=== PATIENT | female | born 1955 | race Caucasian/White ===

== ENCOUNTER 2021-12-09 13:55 | Outpatient (REF) | payer MEDICARE, MEDICAID, SELFPAY ==
[2021-12-09 14:52] LABS: Appearance Urine CLOUDY; Color Urine YELLOW; Glucose Urine UA NEG (NEG); Leukocyte Esterase Urine 1+ (NEG); Nitrite Urine NEG (NEG); PH 7.5 (5.0-8.0); Specific Gravity - Urine 1.015 (1.005-1.025); UACC Culture Trigger YES; Urine Blood 1+ (NEG); Urine Ketones NEG (NEG); Urine Protein TRACE MG/DL (NEG-TRACE)
[2021-12-09 15:02] LABS: Bacteria Urine 1+ /LPF; Mucus Urine 1+ /LPF; RBC Urine 0-2 /HPF (0); Squamous Epithelial Cell Urine 1+ /LPF; WBC Urine 0-2 /HPF (0-4)
[2021-12-09 15:25] LABS: Anion Gap 11 (12-20); Blood Urea Nitrogen 12 mg/dL (9-16); Carbon Dioxide 25 mmol/L (22-29); Chloride 110 mmol/L (96-108); Estimated Glomerular Filt Rate > 60; Glucose Random 75 mg/dL (60-115); Potassium 3.9 mmol/L (3.3-5.1); Sodium 142 mmol/L (135-145)
[2021-12-09 15:52] LABS: TSH reflex Free T4 0.99 uIU/mL (0.32-4.0)
[2021-12-15 09:21] LABS: Levetiracetam Keppra 22.3 mcg/mL (12.0-46.0)
== END 2021-12-09 13:56 | disposition home or self-care (01) ==
LOC: HO.LAB 13:55
PROVIDERS: PCP Internal Medicine; Visit Provider Nurse Practitioner Family
DX: N39.0 Urinary tract infection, site not specified (principal); E03.9 Hypothyroidism, unspecified; R56.9 Unspecified convulsions; I10 Essential (primary) hypertension; Z51.81 Encounter for therapeutic drug level monitoring; Z79.899 Other long term (current) drug therapy
CPT/HCPCS: 36415; 80048; 80177; 81001; 84443; 87086

== ENCOUNTER 2022-01-06 14:27 | Inpatient (IN) | payer MEDICARE, MEDICAID, SELFPAY ==
[2022-01-06] VITALS (9 sets, daily range): BP systolic 99–132; BP diastolic 60–68; PULSE 67–97; RESP 14–18; TEMP 36.7–36.9; O2SAT 96–100; BMI 21.3
--- NOTE | ~2022-01-06 | CT_ITS ---
EXAMINATION: CT ABDOMEN AND PELVIS WITHOUT CONTRAST CLINICAL INFORMATION: Diffuse abdominal pain, weight loss COMPARISON: 05/15/2019 TECHNIQUE: Multidetector volumetric imaging was performed from the superior aspect of the liver through the pubic symphysis. Sagittal and coronal reformatted images were obtained on the technologist's workstation. This CT examination was performed using dose optimization techniques as appropriate, variously including the following: *Automated exposure control *Adjustment of mA and/or kV according to patient size (this includes techniques or standardized protocols for targeted exams where dose is matched to indication/reason for exam; i.e. extremities or head) *Use of iterative reconstruction technique DLP: 311 mGy-cm FINDINGS: LUNG BASES: The visualized lung bases are unremarkable. LIVER, GALLBLADDER, AND BILIARY TREE: The liver is normal in size, shape, and attenuation. No focal hepatic lesion or biliary ductal dilatation is present. Small amount of pneumobilia is noted presumed iatrogenic. Clips consistent with cholecystectomy. PANCREAS: Unremarkable. SPLEEN: Unremarkable. ADRENAL GLANDS: Unremarkable. KIDNEYS AND URETERS: The kidneys are normal in size, shape, and attenuation. No hydronephrosis, hydroureter, or calculi seen. No perinephric stranding. Incidental small hyperdense cyst right kidney measuring subcentimeter in size. BLADDER: Degroot catheter noted. Bladder is partially decompressed. Bladder wall appears notably thickened anteriorly and superiorly. Limited detail due to the lack of contrast. GASTROINTESTINAL TRACT: Postsurgical changes again noted. Matted bowel loops in the pelvis without evidence for obstruction. Limited detail. Left-sided ostomy noted. ABDOMINAL WALL: There is prominence of the right rectus abdominis muscle with a high density focus consistent with a rectus sheath hematoma. It measures up to 7 cm in maximum diameter. LYMPH NODES: Generalized subcentimeter lymph nodes similar to baseline. No pathologic enlargement. VASCULAR: Retroaortic left renal vein. PELVIC VISCERA: Air within the vaginal canal presumed iatrogenic. OSSEOUS STRUCTURES: Unremarkable. CT/CT abdomen pelvis wo con IMPRESSION: 1. Limited assessment of the GI tract. Postsurgical changes with matted bowel loops in the pelvis without evidence for obstruction. 2. The bladder wall is notably thickened. In light of patient's history, urologic assessment is recommended. 3. Right-sided rectus sheath hematoma. Fleischner guidelines were followed.
[2022-01-06 16:09] LABS: MANUAL DIFF FLAG NO
[2022-01-06 16:10] LABS: Basophils Percent Auto 0.5 % (0-2); Eosinophils Absolute Auto 0.1 X10*3/uL (0.0-0.4); Eosinophils Percent Auto 2.4 % (0-4); Hematocrit 35.7 % (37.0-47.0); Hemoglobin 11.3 g/dl (12.0-16.0); Imm Gran Abs Auto 0.01 X10*3/uL (0.00-0.03); Imm Gran Pct Auto 0.2 % (0.0-0.4); Lymphocytes Absolute Auto 1.8 X10*3/uL (1.2-4.9); Lymphocytes Percent Auto 32.6 % (20-40); Mean Corpuscular HGB Conc 31.7 g/dl (31.0-35.0); Mean Corpuscular Hemoglobin 29.6 pg (27.0-33.0); Mean Corpuscular Volume 93.5 fL (80.0-98.0); Monocytes Absolute Auto 0.4 X10*3/uL (0.1-1.2); Monocytes Percent Auto 7.3 % (2-11); Neutrophils Absolute Auto 3.1 x10*3/uL (2.0-8.3); Platelet Count 342 X10*3/uL (160-400); Red Blood Count 3.82 X10*6/uL (4.20-5.50); Red Cell Distribution Width 12.9 % (11.0-16.0); White Blood Count 5.5 X10*3/uL (4.8-10.8)
[2022-01-06 16:27] LABS: COVID-19 Test Negative (Negative)
[2022-01-06 16:28] LABS: Alanine Aminotransferase 20 U/L (0-31); Albumin Level 4.3 g/dL (3.5-5.0); Alkaline Phosphatase 72 U/L (39-117); Anion Gap 13 (12-20); Aspartate Amino Transferase 19 U/L (5-31); Bilirubin Total 0.7 mg/dL (0.0-1.0); Blood Urea Nitrogen 13 mg/dL (9-16); Calcium 9.9 mg/dL (8.4-10.2); Carbon Dioxide 30 mmol/L (22-29); Chloride 101 mmol/L (96-108); Creatinine Clr Calc Pharmacy 58.7; Estimated Glomerular Filt Rate > 60; Glucose Random 193 mg/dL (60-115); Potassium 4.6 mmol/L (3.3-5.1); Sodium 139 mmol/L (135-145); Total Protein 7.1 g/dL (6.5-8.0)
--- NOTE | 2022-01-06 18:58 | ED.ABDPAIN ---
HPI - Abdominal Pain General Chief Complaint: Abdominal Pain Stated Complaint: UTI Time Seen by Provider: 01/06/22 18:56 Source: patient Mode of arrival: ambulatory Limitations: no limitations and other (poor historian) History of Present Illness HPI narrative: This 66-year-old female with a complex medical history of colon cancer status post partial colectomy and colostomy, recurrent small-bowel obstruction, opiate dependence, seizure disorder, paroxysymal afib, conversion disorder, history of CVA with left-sided weakness, neurogenic bladder with chronic indwelling Degroto, hypothyroidism, history of PE currently on Lovenox presenting to the emergency department with complaints of abdominal pain and concerns for UTI X 2 weeks. Patient tells me that she has a VNA nurse that goes to her home told her that she likely has a urinary tract infection, she reports burning to area. Patient reports diffuse abdominal pain with radiation to bilateral flanks. She also reports associated nausea, vomiting. She tells me the abdominal pain is severe in nature 10/10 stabbing. He tells me the pain does not radiate. She also reports an associated 30 lb weight loss over the past 4 weeks. Denies chest pain, shortness of breath, headache, dizziness. MD elicited complaint: abdominal pain Pertinent past history: none Onset (ago): week(s) (2) Pain Consistency: constant Location: diffuse Severity: severe Pain scale (0-10): 10 Quality: stabbing Radiation: bilateral flank Exacerbating factors: nothing Relieving factors: nothing Associated symptoms: nausea and chills Related Data Home Medications Medication Instructions Recorded Confirmed aspirin 81 mg tablet,delayed 81 mg PO DAILY 01/28/21 12/23/21 release (Adult Low Dose Aspirin) oxycodone 5 mg tablet 20 mg PO Q6H 12/22/21 12/23/21 pantoprazole 40 mg tablet,delayed 40 mg PO DAILY 12/22/21 01/04/22 release Previous Rx's Medication Instructions Recorded dicyclomine 20 mg tablet 20 mg PO BID #60 tab 08/11/21 digoxin 125 mcg (0.125 mg) tablet 125 mcg PO DAILY #90 tab 08/11/21 diphenoxylate-atropine 2.5 1 tab PO BID PRN #20 tab 08/11/21 mg-0.025 mg tablet (Lomotil) lancets 28 gauge (FreeStyle 28 gauge TOPICAL DAILY #100 ea 08/11/21 Lancets) levetiracetam 750 mg tablet 750 mg PO BID 30 Days #60 tab 08/11/21 blood sugar diagnostic (FreeStyle 1 strip MISCELLANEOUS DAILY #50 cap 09/21/21 Lite Strips) ropinirole 1 mg tablet 1 mg PO DAILY #30 tab 10/04/21 duloxetine 60 mg capsule,delayed 60 mg PO DAILY #30 cap 12/09/21 release albuterol sulfate 90 mcg/actuation 2 puff INHALATION Q6H PRN #18 g 01/02/22 aerosol inhaler acetaminophen 500 mg tablet 500 mg PO .QD #90 tab 01/03/22 budesonide-formoterol HFA 80 2 puff INHALATION BID #10.2 g 01/03/22 mcg-4.5 mcg/actuation aerosol inhaler levothyroxine 50 mcg tablet 50 mcg PO DAILY #30 tab 01/03/22 loratadine 10 mg tablet 10 mg PO DAILY #90 tab 01/03/22 simvastatin 40 mg tablet 40 mg PO QPM #30 tab 01/03/22 Allergies Allergy/AdvReac Type Severity Reaction Status Date / Time divalproex sodium [Depakote] Allergy Unknown altered Verified 01/04/22 17:52 mental status erythromycin base Allergy Unknown ANAPHALAXIS Verified 01/04/22 17:52 [ERYTHROMYCIN BASE] gluten [GLUTEN] Allergy Unknown BLOATING,RA Verified 01/04/22 17:52 SH penicillin V Allergy Unknown anaphylaxis Verified 01/04/22 17:52 Penicillins [PCN] Allergy Unknown ANAPHALAXIS Verified 01/04/22 17:52 SEAFOOD Allergy Unknown ANAPHALAXIS, Verified 01/04/22 17:52 anaphylaxis Sulfa (Sulfonamide Allergy Unknown ANAPHALAXIS, Verified 01/04/22 17:52 Antibiotics) vomiting [SULFA (SULFONAMIDE ANTIBIOTICS)] Erythromycin Allergy Unknown anaphylaxis Uncoded 01/04/22 17:52 gluten,rice Allergy Unknown Unknown Uncoded 01/04/22 17:52 SULFA ABX, PCN, Allergy Unknown anaphylaxis Uncoded 01/04/22 17:52 Review of Systems Review of Systems Constitutional : No Weight loss, No Fever, + Chills, No Fatigue, No Malaise ENT/Mouth : No sore throat, No Rhinorrhea Eyes: No Eye Pain, No Swelling, No Redness Cardiovascular : No Chest Pain, No SOB, No Dyspnea on Exertion, No Orthopnea, No Edema, No Palpitations Respiratory : No Cough, No Sputum, No Wheezing Gastrointestinal : + Nausea, No Vomiting, No Diarrhea, No Constipation, + abdominal Pain, No Hematochezia, No Melena Genitourinary : + Dysuria, No Urinary Frequency, No Hematuria, Musculoskeletal : No joint pain, No Myalgias, No Joint Swelling, + flank pain Skin : No Skin Lesions, No rash Neuro : No Weakness, No Numbness, No Dizziness, No Headache Psych : No Anxiety/Panic, No Depression All other systems reviewed and are negative [facility] Past Medical History Attestation statement: The following information was validated with the patient. Source: old records reviewed and nursing notes reviewed Surgical History History of bladder surgery History of colectomy History of colonoscopy History of colostomy reversal History of facial surgery History of partial gastrectomy History of partial surgical removal of colon History of sinus surgery Family History Family History Other Mental health disorder Social History Social History Housing: Apartment Alcohol intake: never Patient Tobacco Use Status: Never used Tobacco e-Cigarette/Vaping Use: Never Used Second Hand Smoke Exposure: Yes Use of substances other than those prescribed or required for medical reasons: No Advance Directives: No Advance Directives Information Provided: No service: No Current occupational status: disabled Cognitive needs: Yes (cane) Hearing needs: No Vision needs: Yes (Glasses) Physical Exam ED Vital Signs: Vital Signs - 24 hr 01/06/22 15:55 01/06/22 19:09 01/06/22 20:00 Temperature 98.0 F 98.5 F 98.5 F Pulse Rate 97 72 72 Respiratory Rate 18 16 16 Blood Pressure 116/64 132/65 99/68 Pulse Oximetry 100 98 98 01/06/22 20:40 01/06/22 21:34 01/06/22 23:02 Temperature 98.3 F Pulse Rate 71 67 Respiratory Rate 14 16 16 Blood Pressure 120/68 99/62 Pulse Oximetry 99 98 01/06/22 23:04 01/06/22 23:24 01/06/22 23:39 Temperature 98.3 F 98.3 F 98.4 F Pulse Rate 70 70 74 Respiratory Rate 16 16 16 Blood Pressure 108/60 108/60 99/61 Pulse Oximetry 96 97 98 01/07/22 00:00 01/07/22 00:05 01/07/22 01:14 Temperature 98.4 F Pulse Rate 67 69 74 Respiratory Rate 16 16 16 Blood Pressure 98/57 L 98/57 L 102/55 L Pulse Oximetry 98 98 01/07/22 01:52 Temperature 98.6 F Pulse Rate 67 Respiratory Rate 16 Blood Pressure 98/67 Pulse Oximetry 98 BMI result Body Mass Index 21.3 Vital signs stable Appearance: Alert.? Oriented X3.? No acute distress.? Head: Normocephalic, atraumatic, no step-offs or deformities Eyes: Pupils equal, round and reactive to light.? ENT: Pharynx normal.? Neck: Normal inspection.? Neck supple.? CVS: Normal heart rate and rhythm.? Pulses normal.? Respiratory: No respiratory distress.? Breath sounds normal.? Abdomen: Soft and +diffusely tender .? Patient with a colostomy bag in place. And a Degroot catheter in place. Skin: Skin warm and dry.? Normal skin color.? Normal skin turgor.? Extremities: No lower extremity edema.? No calf ttp. 5/5 strength to bilateral upper and lower extremities Back: No midline tenderness, no C-spine tenderness, full range of motion, + CVA tenderness bilaterally Neuro: Oriented X 3.? No motor deficit.? No sensory deficit. CN 2-12 intact Course Reevaluation(s) Reevaluation #1: CBC appears to be at patient's baseline. No acute electrolyte abnormalities requiring intervention. Lipase within normal limits. Urine positive for nitrates will treat for UTI. COVID negative. Pending CT of the abdomen and pelvis. Time: 02:06 Reevaluation #2: Reached at a hospitalist as patient will likely require IV antibiotics as she has anaphylaxis reactions to nearly all antibiotics including Levaquin, penicillins, sulfa as. He recommends to reaching out to Infectious Disease for antibiotic guidance. He also notes this is a high risk patient as she does have anaphylaxis reactions. I discussed CT findings of hematoma w/ Dr. Conway who tells me it is small, and no need for acute intervention at this time. Time: 02:00 Reevaluation #3: Reached out to Dr.Jaworek [place]. Waiting for results. Asked her for input on treating patient for UTI due to her complex anaphylactic history. Sign will be given to Dr. Rachel. Pending ID response. I did tell ID i was leaving and that would be on in the am. Time: 02:39 Additional Reevaluation(s): 331- still no response from ID. Sign out given to . MDM - Abdominal Pain MDM Narrative Medical decision making narrative: 1898 66 yo f w/ complex medical hx presents w/ uti sx and abdominal pain w/ radiation to bilateral flanks. Also reports nausea. PE significant for diffusely tender abdomen with bilateral flank pain. Regular rate and rhythm. Lungs clear. Neuro nonfocal. Vital signs stable. Will rule out UTI, pyelonephritis, I will also obtain a CT of the abdomen and pelvis to rule out any masses or tumors as patient does report that she has lost 30 lb within the past 4 weeks. She denies all other constitutional symptoms Plan- labs, urine, imaging Medical Records Attestation: I reviewed the patient's medical records. Lab Data Attestation: I reviewed the patient's lab results. Result diagrams: 01/06/22 16:03 01/06/22 16:03 Labs: Lab Results 01/06/22 01/06/22 01/06/22 Range/Units 16:03 16:03 16:03 WBC 5.5 (4.8-10.8) X10*3/uL RBC 3.82 L (4.20-5.50) X10*6/uL Hgb 11.3 L (12.0-16.0) g/dl Hct 35.7 L (37.0-47.0) % MCV 93.5 (80.0-98.0) fL MCH 29.6 (27.0-33.0) pg MCHC 31.7 (31.0-35.0) g/dl RDW 12.9 (11.0-16.0) % Plt Count 342 (160-400) X10*3/uL MPV 9.0 L (9.4-12.3) fL Immature Gran % (Auto) 0.2 (0.0-0.4) % Neut % (Auto) 57.0 (45-73) % Lymph % (Auto) 32.6 (20-40) % [place] % (Auto) 7.3 (2-11) % Eos % (Auto) 2.4 (0-4) % Baso % (Auto) 0.5 (0-2) % Lymph # (Auto) 1.8 (1.2-4.9) X10*3/uL [place] # (Auto) 0.4 (0.1-1.2) X10*3/uL Eos # (Auto) 0.1 (0.0-0.4) X10*3/uL Baso # (Auto) 0.0 (0.0-0.2) X10*3/uL Abs Immat Gran (auto) 0.01 (0.00-0.03) X10*3/uL Absolute Neuts (auto) 3.1 (2.0-8.3) x10*3/uL Absolute Nucleated RBC 0.000 (0.0-0.012) X10*3/uL Nucleated RBC % (auto) 0.0 (0.0-0.2) /100WBC Sodium 139 (135-145) mmol/L Potassium 4.6 (3.3-5.1) mmol/L Chloride 101 (96-108) mmol/L Carbon Dioxide 30 H (22-29) mmol/L Anion Gap 13 (12-20) BUN 13 (9-16) mg/dL Creatinine 0.72 (0.5-1.4) mg/dL Estim Creat Clear Calc 58.7 Estimated GFR > 60 Random Glucose 193 H (60-115) mg/dL Calcium 9.9 D (8.4-10.2) mg/dL Total Bilirubin 0.7 (0.0-1.0) mg/dL AST 19 (5-31) U/L ALT 20 (0-31) U/L Alkaline Phosphatase 72 (39-117) U/L Total Protein 7.1 (6.5-8.0) g/dL Albumin 4.3 (3.5-5.0) g/dL Lipase 18 (8-78) U/L Urine Color Urine Appearance Urine pH (5.0-8.0) Ur Specific [place] (1.005-1.025) Urine Protein (NEG-TRACE) MG/DL Urine Glucose (UA) (NEG) MG/DL Urine Ketones (NEG) MG/DL Urine Blood (NEG) Urine Nitrite (NEG) Ur Leukocyte Esterase (NEG) Urine RBC (0) /HPF Urine WBC (0-4) /HPF Ur Squamous Epith Cells /LPF Urine Bacteria /LPF COVID-19 (JEFE) Negative (Negative) COVID-19 Clin Com See Note 01/06/22 Range/Units 19:12 WBC (4.8-10.8) X10*3/uL RBC (4.20-5.50) X10*6/uL Hgb (12.0-16.0) g/dl Hct (37.0-47.0) % MCV (80.0-98.0) fL MCH (27.0-33.0) pg MCHC (31.0-35.0) g/dl RDW (11.0-16.0) % Plt Count (160-400) X10*3/uL MPV (9.4-12.3) fL Immature Gran % (Auto) (0.0-0.4) % Neut % (Auto) (45-73) % Lymph % (Auto) (20-40) % [place] % (Auto) (2-11) % Eos % (Auto) (0-4) % Baso % (Auto) (0-2) % Lymph # (Auto) (1.2-4.9) X10*3/uL [place] # (Auto) (0.1-1.2) X10*3/uL Eos # (Auto) (0.0-0.4) X10*3/uL Baso # (Auto) (0.0-0.2) X10*3/uL Abs Immat Gran (auto) (0.00-0.03) X10*3/uL Absolute Neuts (auto) (2.0-8.3) x10*3/uL Absolute Nucleated RBC (0.0-0.012) X10*3/uL Nucleated RBC % (auto) (0.0-0.2) /100WBC Sodium (135-145) mmol/L Potassium (3.3-5.1) mmol/L Chloride (96-108) mmol/L Carbon Dioxide (22-29) mmol/L Anion Gap (12-20) BUN (9-16) mg/dL Creatinine (0.5-1.4) mg/dL Estim Creat Clear Calc Estimated GFR Random Glucose (60-115) mg/dL Calcium (8.4-10.2) mg/dL Total Bilirubin (0.0-1.0) mg/dL AST (5-31) U/L ALT (0-31) U/L Alkaline Phosphatase (39-117) U/L Total Protein (6.5-8.0) g/dL Albumin (3.5-5.0) g/dL Lipase (8-78) U/L Urine Color YELLOW Urine Appearance CLOUDY Urine pH 6.5 (5.0-8.0) Ur Specific [place] 1.015 (1.005-1.025) Urine Protein TRACE (NEG-TRACE) MG/DL Urine Glucose (UA) NEG (NEG) MG/DL Urine Ketones NEG (NEG) MG/DL Urine Blood NEG (NEG) Urine Nitrite POS H (NEG) Ur Leukocyte Esterase NEG (NEG) Urine RBC 1-4 (0) /HPF Urine WBC 10-14 H (0-4) /HPF Ur Squamous Epith Cells 2+ /LPF Urine Bacteria 3+ /LPF COVID-19 (JEFE) (Negative) COVID-19 Clin Com Critical Care Time Critical Care Time Critical Care Time: Yes Total Critical Care Time: 35 Attestation: I attest to this time spent taking care of the patient, obtaining history, physical, reviewing labs, imaging, speaking to my attending, speaking to specialist. Discharge Plan Discharge Clinical Impression: Urinary tract infection Patient Disposition: Still a Patient Prescriptions: No Action aspirin [Adult Low Dose Aspirin] 81 mg tablet,delayed release (DR/EC) 81 mg PO DAILY 0RF FreeStyle Lite Strips Strip 1 strip miscellaneous DAILY Qty: 50 0RF ropinirole 1 mg tablet 1 mg PO DAILY Qty: 30 3RF albuterol sulfate 90 mcg/actuation HFA aerosol inhaler 2 puff inhalation Q6H PRN (Reason: for muscle spasm) Qty: 18 1RF loratadine 10 mg tablet 10 mg PO DAILY Qty: 90 1RF acetaminophen 500 mg tablet 500 mg PO .QD Qty: 90 0RF levothyroxine 50 mcg tablet 50 mcg PO DAILY Qty: 30 2RF budesonide-formoterol 80-4.5 mcg/actuation HFA aerosol inhaler 2 puff inhalation BID Qty: 10.2 2RF simvastatin 40 mg tablet 40 mg PO QPM Qty: 30 0RF duloxetine 60 mg capsule,delayed release(DR/EC) 60 mg PO DAILY Qty: 30 0RF dicyclomine 20 mg tablet 20 mg PO BID Qty: 60 0RF digoxin 125 mcg (0.125 mg) tablet 125 mcg PO DAILY Qty: 90 0RF Hold Instructions: Doctor's Order diphenoxylate-atropine [Lomotil] 2.5-0.025 mg tablet 1 tab PO BID PRN (Reason: diarrhea) Qty: 20 0RF lancets [FreeStyle Lancets] 28 gauge misc 28 gauge topical DAILY Qty: 100 2RF levetiracetam 750 mg tablet 750 mg PO BID 30 Days Qty: 60 8RF oxycodone 5 mg tablet 20 mg PO Q6H 0RF pantoprazole 40 mg tablet,delayed release (DR/EC) 40 mg PO DAILY 0RF
[2022-01-06 19:23] LABS: Appearance Urine CLOUDY; Color Urine YELLOW; Glucose Urine UA NEG (NEG); Leukocyte Esterase Urine NEG (NEG); Nitrite Urine POS (NEG); PH 6.5 (5.0-8.0); Specific Gravity - Urine 1.015 (1.005-1.025); UACC Culture Trigger YES; Urine Blood NEG (NEG); Urine Ketones NEG (NEG); Urine Protein TRACE MG/DL (NEG-TRACE)
[2022-01-06 19:30] LABS: Lipase 18 U/L (8-78)
[2022-01-06 19:34] LABS: Bacteria Urine 3+ /LPF; Squamous Epithelial Cell Urine 2+ /LPF
[2022-01-06] MEDS: 0.9 % Sodium Chloride 1,000 ML 999 ML IV (21:02)
[2022-01-06] MEDS: ondansetron HCL 4 MG/2 ML VIAL IVPUSH (21:03)
[2022-01-06] MEDS: Morphine Sulfate 2 MG/ML CARTRIDGE IVPUSH (23:02)
[2022-01-07] VITALS (15 sets, daily range): BP systolic 92–109; BP diastolic 53–70; PULSE 58–89; RESP 16–18; TEMP 36.3–37; O2SAT 95–99
[2022-01-07] MEDS: 0.9 % Sodium Chloride 1,000 ML 999 ML IV (01:13)
[2022-01-07] MEDS: Morphine Sulfate 2 MG/ML CARTRIDGE IVPUSH ×2 (02:26→07:48)
--- NOTE | 2022-01-07 03:54 | PC.NURSE ---
colostomy bag emptied for 400cc yellow
--- NOTE | 2022-01-07 04:00 | PC.NURSE ---
gentamicin not available to the ed, housekeeping associate called.
[2022-01-07] MEDS: diphenhydrAMINE HCL 25 MG TABLET 50 MG PO ×2 (04:47→20:55)
--- NOTE | 2022-01-07 06:00 | PC.NURSE ---
medication infusing with no difficutly, no s/s of a reaction.
--- NOTE | 2022-01-07 10:40 | PHA.MEDREC ---
Pharmacy Consult ? Medication Reconciliation Pharmacy has completed the medication reconciliation. SPOKE WITH PT. SHE HAD A LIST. I CROSS REFERENCED IT WITH HER INS FILL HX AND CURRENT LIST IN EXPANSE
--- NOTE | 2022-01-07 10:59 | P.HPHOSP_ITS ---
History of Present Illness Date of Service: 01/07/22 Chief Complaint: fever, suprapubic pain 66F With past medical history of chronic indwelling Degroot catheter due to neurogenic bladder presented with suprapubic pain, fever at home of 101, ongoing for several days. Patient also notes weight loss over last few months, she reports about 40 lb weight loss, however, review of EMR shows patient has lost about 12 lb over the past year, and about 22lbs since 2019. she has a history of colon cancer status post resection complicated by multiple small-bowel obstructions. She reports that she was told she is in remission. She Reports high output in her colostomy. in ED UA was positive for WBC, nitrate, bacteria. Patient has reported anaphylactic allergies to multiple medications. Therefore, she was given gentamicin and premedicated with Benadryl. She seems to have tolerated this well. Review of Systems Review of Systems: Constitutional: Fevers, weight loss Eyes: denies blurry vision ENT: denies sore throat CVS: denies chest pain Respiratory: Denies dyspnea GI: high ostomy output : suprapubic pain MSK: denies neck pain Skin: denies rash Neuro: denies specific motor weakness Psych: denies suicidal ideation Endocrine: denies heat/cold intolerance Hematologic: denies easy bleeding Allergy: denies hives PMFSH Medical History (Updated 01/07/22 @ 10:57 by Hector Pride MD) Colon cancer Conversion disorder COPD (chronic obstructive pulmonary disease) Deep vein thrombosis Paroxysmal A-fib Pseudoseizure Family History (Updated 01/07/22 @ 10:57 by Hector Pride MD) Mother CAD (coronary artery disease) Other Mental health disorder Surgical History (Updated 01/07/22 @ 07:48 by Hector Pride MD) History of bladder surgery History of colectomy History of colonoscopy History of colostomy reversal History of facial surgery History of partial gastrectomy History of partial surgical removal of colon History of sinus surgery S/P IVC filter Social History Housing: Apartment Alcohol intake: never Patient Tobacco Use Status: Never used Tobacco e-Cigarette/Vaping Use: Never Used Second Hand Smoke Exposure: Yes Use of substances other than those prescribed or required for medical reasons: No Advance Directives: No Advance Directives Information Provided: No service: No Current occupational status: disabled Cognitive needs: Yes (cane) Hearing needs: No Vision needs: Yes (Glasses) Meds Allergies Allergy/AdvReac Type Severity Reaction Status Date / Time Tetracyclines Allergy Severe Anaphylaxis Verified 01/07/22 03:40 divalproex sodium [Depakote] Allergy Unknown altered Verified 01/04/22 17:52 mental status erythromycin base Allergy Unknown ANAPHALAXIS Verified 01/04/22 17:52 [ERYTHROMYCIN BASE] gluten [GLUTEN] Allergy Unknown BLOATING,RA Verified 01/04/22 17:52 SH penicillin V Allergy Unknown anaphylaxis Verified 01/04/22 17:52 Penicillins [PCN] Allergy Unknown ANAPHALAXIS Verified 01/04/22 17:52 SEAFOOD Allergy Unknown ANAPHALAXIS, Verified 01/04/22 17:52 anaphylaxis Sulfa (Sulfonamide Allergy Unknown ANAPHALAXIS, Verified 01/04/22 17:52 Antibiotics) vomiting [SULFA (SULFONAMIDE ANTIBIOTICS)] Erythromycin Allergy Unknown anaphylaxis Uncoded 01/04/22 17:52 gluten,rice Allergy Unknown Unknown Uncoded 01/04/22 17:52 SULFA ABX, PCN, Allergy Unknown anaphylaxis Uncoded 01/04/22 17:52 Active Medications: Current Medications Albuterol Sulfate (Albuterol Sulfate 90 Mcg 8 Gm Inhaler) 2 puff INHALE Q6H PRN PRN Reason: for muscle spasm Amitriptyline HCl (Amitriptyline Hcl 25 Mg Tablet) 25 mg PO BEDTIME [facility] Aspirin (Aspirin Enteric Coated 81 Mg Tablet.) 81 mg PO DAILY [facility] Cholestyramine Resin (Cholestyramine (With Sugar) 4 Gm Powd.Pack) 4 gm PO BID [facility] Dicyclomine HCl (Dicyclomine Hcl 10 Mg Capsule) 20 mg PO BID [facility] Digoxin (Digoxin 0.125 Mg Tablet) 0.125 mg PO DAILY [facility] Diphenhydramine HCl (Diphenhydramine Hcl 25 Mg Tablet) 50 mg PO BEDTIME [facility] Duloxetine HCl (Duloxetine Hcl 60 Mg Capsule.) 60 mg PO DAILY [facility] Folic Acid (Folic Acid 1 Mg Tablet) 1 mg PO DAILY [facility] Levothyroxine Sodium (Levothyroxine Sodium 50 Mcg Tablet) 50 mcg PO DAILY [facility] Loperamide HCl (Loperamide Hcl 2 Mg Capsule) 2 mg PO NEEDED PRN PRN Reason: Diarrhea Loratadine (Loratadine 10 Mg Tablet) 10 mg PO DAILY [facility] Magnesium Oxide (Magnesium Oxide 400 Mg Tablet) 400 mg PO BID [facility] Multivitamins/Vitamin C (Multivitamin Tablet) 1 tab PO DAILY [facility] Non-Formulary Medication (Budesonide-Formoterol) 2 puff INHALE BID [facility] Non-Formulary Medication (Levetiracetam) 750 mg PO BID [facility] Non-Formulary Medication (Oxybutynin Chloride) 1 tab PO BID [facility] Non-Formulary Medication (Pantoprazole) 40 mg PO DAILY [facility] Non-Formulary Medication (Simvastatin) 40 mg PO BEDTIME [facility] Pharmacy Consult (Consult Rx Perform Med Rec) 1 each MISCELLANE ONCE PRN PRN Reason: Consult order Potassium Chloride (Potassium Chloride Er 10 Meq Capsule.Er) 10 meq PO BID [facility] Ropinirole HCl (Ropinirole Hcl 1 Mg Tablet) 1 mg PO DAILY [facility] Thiamine HCl (Thiamine Hcl 100 Mg Tablet) 100 mg PO DAILY [facility] Trazodone HCl (Trazodone Hcl 50 Mg Tablet) 50 mg PO BEDTIME [facility] Home Medications Medication Instructions Recorded Confirmed Last Taken Type aspirin 81 mg tablet,delayed 81 mg PO DAILY 01/28/21 01/07/22 01/06/22 History release (Adult Low Dose Aspirin) pantoprazole 40 mg tablet,delayed 40 mg PO DAILY 12/22/21 01/07/22 01/06/22 History release amitriptyline 25 mg tablet 1 tab PO BEDTIME 01/07/22 01/07/22 01/06/22 History cholestyramine (with sugar) 4 gram 1 packet PO BID 01/07/22 01/07/22 01/06/22 History powder for susp in a packet diphenhydramine HCl 25 mg tablet 50 mg PO BEDTIME 01/07/22 01/07/22 01/06/22 History (Banophen) folic acid 1 mg tablet 1 tab PO DAILY 01/07/22 01/07/22 01/06/22 History loperamide 2 mg capsule 2 mg PO NEEDED PRN 01/07/22 01/07/22 01/06/22 History magnesium oxide 400 mg (241.3 mg 1 tab PO BID 01/07/22 01/07/22 01/06/22 History magnesium) tablet multivitamin-ferrous 1 tab PO DAILY 01/07/22 01/07/22 01/06/22 History fumarate-folic acid 18 mg-400 mcg tablet (Certavite-Antioxidant) ondansetron HCl 4 mg tablet 1 tab PO Q8H PRN 01/07/22 01/07/22 01/06/22 History oxybutynin chloride 5 mg tablet 1 tab PO BID 01/07/22 01/07/22 01/06/22 History potassium chloride 10 mEq 1 tab PO BID 01/07/22 01/07/22 01/06/22 History tablet,extended release(part/cryst) simvastatin 40 mg tablet 40 mg PO BEDTIME 01/07/22 01/07/22 01/06/22 History thiamine HCl (vitamin B1) 100 mg 1 tab PO DAILY 01/07/22 01/07/22 01/06/22 History tablet (Vitamin B-1) trazodone 50 mg tablet 1 tab PO BEDTIME 01/07/22 01/07/22 01/06/22 History Physical Exam Vital Signs and Narrative: Vital Signs: Last Vital Signs Temp 98.4 F 01/07/22 06:00 Pulse 89 01/07/22 10:07 Resp 18 01/07/22 10:07 BP 92/53 L 01/07/22 10:07 Pulse Ox 99 01/07/22 10:07 BMI result Body Mass Index 21.3 General: no acute distress HEENT: atraumatic Neck: normal to visual inspection CVS: S1, S2, RRR Resp: CTA bilateral Chest: non tender GI: soft, non tender, non distended : no CVA tenderness Skin: no rashes Extremities: no edema Neuro: Oriented X3, grossly intact Psych: cooperative Results Labs CBC and Chem 7: 01/06/22 16:03 01/06/22 16:03 Labs: Laboratory Results - last 24 hr 01/06/22 01/06/22 01/06/22 16:03 16:03 16:03 MCV 93.5 MCH 29.6 MCHC 31.7 RDW 12.9 Plt Count 342 MPV 9.0 L Immature Gran % (Auto) 0.2 Neut % (Auto) 57.0 Lymph % (Auto) 32.6 Morris % (Auto) 7.3 Eos % (Auto) 2.4 Baso % (Auto) 0.5 Lymph # (Auto) 1.8 Morris # (Auto) 0.4 Eos # (Auto) 0.1 Baso # (Auto) 0.0 Abs Immat Gran (auto) 0.01 Absolute Neuts (auto) 3.1 Absolute Nucleated RBC 0.000 Nucleated RBC % (auto) 0.0 Anion Gap 13 Estim Creat Clear Calc 58.7 Estimated GFR > 60 Random Glucose 193 H Calcium 9.9 D Total Bilirubin 0.7 AST 19 ALT 20 Alkaline Phosphatase 72 Total Protein 7.1 Albumin 4.3 Lipase 18 Urine Color Urine Appearance Urine pH Ur Specific [place] Urine Protein Urine Glucose (UA) Urine Ketones Urine Blood Urine Nitrite Ur Leukocyte Esterase Urine RBC Urine WBC Ur Squamous Epith Cells Urine Bacteria COVID-19 (JEFE) Negative COVID-19 Clin Com See Note 01/06/22 19:12 MCV MCH MCHC RDW Plt Count MPV Immature Gran % (Auto) Neut % (Auto) Lymph % (Auto) Morris % (Auto) Eos % (Auto) Baso % (Auto) Lymph # (Auto) Morris # (Auto) Eos # (Auto) Baso # (Auto) Abs Immat Gran (auto) Absolute Neuts (auto) Absolute Nucleated RBC Nucleated RBC % (auto) Anion Gap Estim Creat Clear Calc Estimated GFR Random Glucose Calcium Total Bilirubin AST ALT Alkaline Phosphatase Total Protein Albumin Lipase Urine Color YELLOW Urine Appearance CLOUDY Urine pH 6.5 Ur Specific [place] 1.015 Urine Protein TRACE Urine Glucose (UA) NEG Urine Ketones NEG Urine Blood NEG Urine Nitrite POS H Ur Leukocyte Esterase NEG Urine RBC 1-4 Urine WBC 10-14 H Ur Squamous Epith Cells 2+ Urine Bacteria 3+ COVID-19 (JEFE) COVID-19 Clin Com Imaging Radiologist's Impressions: Impressions Abdomen/Pelvis CT 01/06/22 19:33 IMPRESSION: 1. Limited assessment of the GI tract. Postsurgical changes with matted bowel loops in the pelvis without evidence for obstruction. 2. The bladder wall is notably thickened. In light of patient's history, urologic assessment is recommended. 3. Right-sided rectus sheath hematoma. Fleischner guidelines were followed. Assessment and Plan (1) COPD (chronic obstructive pulmonary disease): Status: Acute Plan 66-year-old female presented with suprapubic pain, and weight loss catheter associated urinary tract infection no sepsis reported multiple anaphylactic antibiotic allergies follow-up ID for further recommendations follow-up cultures reported weight loss, moderate protein calorie malnutrition concern for recurrence of malignancy versus short bowel syndrome outpatient follow-up recommended monitor output and electrolytes low gluten, low-fiber diet, Ensure t.i.d. history of DVT/PE status post IVC filter therapeutic Lovenox paroxysmal atrial fibrillation therapeutic Lovenox, digoxin hypothyroid synthroid copd continue inhalers hld statin full code patient with CAUTI and history of severe reactions to multiple antibiotics, therefore plan to treat inpaitent under close observation and expected to require atleast 2 midnights in hospital Quality Stroke Does the patient have a stroke diagnosis?: No VTE Prior VTE?: Yes VTE Risk Level:: Medical - moderate - high VTE Device Contraindication: Treatment Not Indicated VTE Drug Contraindication: N/A - Med Ordered
[2022-01-07] MEDS: Enoxaparin Sodium 60 MG/0.6 ML SYRINGE 50 MG SUBCUT ×2 (13:20→23:53)
[2022-01-07] MEDS: levETIRAcetam 250 MG TABLET 750 MG PO (20:54)
[2022-01-07] MEDS: Dicyclomine HCl 10 MG CAPSULE 20 MG PO (20:54)
[2022-01-07] MEDS: Magnesium Oxide 400 MG TABLET PO (20:55)
[2022-01-07] MEDS: Amitriptyline HCl 25 MG TABLET PO (20:55)
[2022-01-07] MEDS: Atorvastatin Calcium 20 MG TABLET PO (20:55)
[2022-01-07] MEDS: 0.9 % Sodium Chloride Flush 3 ML SYRINGE IVFLUSH (20:55)
[2022-01-07] MEDS: traZODone HCL 50 MG TABLET PO (20:55)
[2022-01-08] VITALS (7 sets, daily range): BP systolic 90–106; BP diastolic 51–68; PULSE 57–79; RESP 17–18; TEMP 36.1–36.8; O2SAT 95–98
[2022-01-08 05:34] LABS: Hematocrit 35.3 % (37.0-47.0); Hemoglobin 11.3 g/dl (12.0-16.0); Mean Corpuscular Hemoglobin 30.1 pg (27.0-33.0); Mean Corpuscular Volume 93.9 fL (80.0-98.0); Mean Platelet Volume 9.6 fL (9.4-12.3); Platelet Count 327 X10*3/uL (160-400); Red Blood Count 3.76 X10*6/uL (4.20-5.50); White Blood Count 3.8 X10*3/uL (4.8-10.8)
[2022-01-08] MEDS: Levothyroxine Sodium 50 MCG TABLET PO (05:50)
[2022-01-08] MEDS: Omeprazole 20 MG CAPSULE.DR PO (05:50)
[2022-01-08 06:28] LABS: Anion Gap 14 (12-20); Blood Urea Nitrogen 12 mg/dL (9-16); Calcium 9.4 mg/dL (8.4-10.2); Carbon Dioxide 22 mmol/L (22-29); Chloride 107 mmol/L (96-108); Creatinine Clr Calc Pharmacy 70.5; Estimated Glomerular Filt Rate > 60; Glucose Fasting 83 mg/dL (60-99); Potassium 4.4 mmol/L (3.3-5.1); Sodium 139 mmol/L (135-145)
[2022-01-08] MEDS: levETIRAcetam 250 MG TABLET 750 MG PO ×2 (09:11→19:45)
[2022-01-08] MEDS: 0.9 % Sodium Chloride Flush 3 ML SYRINGE IVFLUSH ×2 (09:11→19:45)
[2022-01-08] MEDS: Dicyclomine HCl 10 MG CAPSULE 20 MG PO ×2 (09:12→19:45)
[2022-01-08] MEDS: Digoxin 0.125 MG TABLET PO (09:13)
[2022-01-08] MEDS: Multivitamin TABLET 1 TAB PO (09:13)
[2022-01-08] MEDS: Loratadine 10 MG TABLET PO (09:13)
[2022-01-08] MEDS: Folic Acid 1 MG TABLET PO (09:13)
[2022-01-08] MEDS: Thiamine HCL 100 MG TABLET PO (09:13)
[2022-01-08] MEDS: Magnesium Oxide 400 MG TABLET PO ×2 (09:14→19:45)
[2022-01-08] MEDS: Aspirin Enteric Coated 81 MG TABLET.DR PO (09:14)
[2022-01-08] MEDS: DULoxetine HCl 60 MG CAPSULE.DR PO (09:14)
--- NOTE | 2022-01-08 09:54 | HO.PM.IMPN ---
Subjective Subjective Date of Service: 01/08/22 Interval History: cc: suprapubic pain interval history: improved Cardiovascular Cardiovascular: Reports no additional cardiovascular complaints Respiratory Respiratory: Reports no additional respiratory complaints Physical Exam Vital Signs: Vital Signs: Last Vital Signs Temp 98.1 F 01/08/22 07:45 Pulse 65 01/08/22 07:45 Resp 18 01/08/22 07:45 BP 103/63 01/08/22 07:45 Pulse Ox 96 01/08/22 07:45 BMI result Body Mass Index 21.3 General: AO X 3, no acute distress Resp: CTA bilateral, no accessory muscles used CVS: S1,S2,RRR GI: soft, non tender, non distended Neuro: motor grossly intact, alert Psych: appropriate affect, appropriate insight Objective Data Active Medications Acetaminophen (Acetaminophen 325 Mg Tablet) 650 mg PO Q6H PRN PRN Reason: Pain, Mild (Pain Scale 1-3) Albuterol Sulfate (Albuterol Sulfate 90 Mcg 8 Gm Inhaler) 2 puff INHALE Q6H PRN PRN Reason: for muscle spasm Amitriptyline HCl (Amitriptyline Hcl 25 Mg Tablet) 25 mg PO BEDTIME [facility] Last Admin: 01/07/22 20:55 Dose: 25 mg Documented by: RAMU Aspirin (Aspirin Enteric Coated 81 Mg Tablet.Dr) 81 mg PO DAILY [facility] Last Admin: 01/08/22 09:14 Dose: 81 mg Documented by: ZAINAB Atorvastatin Calcium (Atorvastatin Calcium 20 Mg Tablet) 20 mg PO BEDTIME [facility] Last Admin: 01/07/22 20:55 Dose: 20 mg Documented by: RAMU Cholestyramine Resin (Cholestyramine (With Sugar) 4 Gm Powd.Pack) 4 gm PO BID [facility] Last Admin: 01/08/22 09:14 Dose: Not Given Documented by: ZAINAB Non-Admin Reason: Patient Refused Dicyclomine HCl (Dicyclomine Hcl 10 Mg Capsule) 20 mg PO BID [facility] Last Admin: 01/08/22 09:12 Dose: 20 mg Documented by: ZAINAB Digoxin (Digoxin 0.125 Mg Tablet) 0.125 mg PO DAILY [facility] Last Admin: 01/08/22 09:13 Dose: 0.125 mg Documented by: ZAINAB Diphenhydramine HCl (Diphenhydramine Hcl 25 Mg Tablet) 50 mg PO BEDTIME [facility] Last Admin: 01/07/22 20:55 Dose: 50 mg Documented by: RAMU Duloxetine HCl (Duloxetine Hcl 60 Mg Capsule.) 60 mg PO DAILY [facility] Last Admin: 01/08/22 09:14 Dose: 60 mg Documented by: ZAINAB Enoxaparin Sodium (Enoxaparin Sodium 60 Mg/0.6 Ml Syringe) 50 mg SUBCUT Q12H [facility] Last Admin: 01/07/22 23:53 Dose: 50 mg Documented by: RAMU Fluticasone/Vilanterol (Fluticasone/Vilanterol 100/25 Blst.W.Dev) 1 puff INHALE RDAILY [facility] Last Admin: 01/08/22 08:01 Dose: Not Given Documented by: MISAEL Non-Admin Reason: Patient Asleep Folic Acid (Folic Acid 1 Mg Tablet) 1 mg PO DAILY [facility] Last Admin: 01/08/22 09:13 Dose: 1 mg Documented by: ZAINAB Ibuprofen (Ibuprofen 400 Mg Tablet) 400 mg PO Q6H PRN PRN Reason: moderate pain Levetiracetam (Levetiracetam 250 Mg Tablet) 750 mg PO BID [facility] Last Admin: 01/08/22 09:11 Dose: 750 mg Documented by: ZAINAB Levothyroxine Sodium (Levothyroxine Sodium 50 Mcg Tablet) 50 mcg PO DAILY@0600 [facility] Last Admin: 01/08/22 05:50 Dose: 50 mcg Documented by: RAMU Loperamide HCl (Loperamide Hcl 2 Mg Capsule) 2 mg PO 8XD PRN PRN Reason: Loose Stool Loratadine (Loratadine 10 Mg Tablet) 10 mg PO DAILY [facility] Last Admin: 01/08/22 09:13 Dose: 10 mg Documented by: ZAINAB Magnesium Oxide (Magnesium Oxide 400 Mg Tablet) 400 mg PO BID [facility] Last Admin: 01/08/22 09:14 Dose: 400 mg Documented by: ZAINAB Multivitamins/Vitamin C (Multivitamin Tablet) 1 tab PO DAILY [facility] Last Admin: 01/08/22 09:13 Dose: 1 tab Documented by: ZAINAB Omeprazole (Omeprazole 20 Mg Capsule.) 20 mg PO DAILY@0630 [facility] Last Admin: 01/08/22 05:50 Dose: 20 mg Documented by: RAMU Oxybutynin Chloride (Oxybutynin Chloride Er 5 Mg Tab.Er.24) 10 mg PO DAILY [facility] Last Admin: 01/08/22 09:11 Dose: 10 mg Documented by: ZAINAB Pharmacy Consult (Consult Rx Perform Med Rec) 1 each MISCELLANE ONCE PRN PRN Reason: Consult order Potassium Chloride (Potassium Chloride Er 10 Meq Capsule.Er) 10 meq PO BID [facility] Last Admin: 01/08/22 09:13 Dose: 10 meq Documented by: ZAINAB Ropinirole HCl (Ropinirole Hcl 1 Mg Tablet) 1 mg PO BEDTIME [facility] Sodium Chloride (0.9 % Sodium Chloride Flush 3 Ml Syringe) 3 ml IVFLUSH QSHIFT [facility] Last Admin: 01/08/22 09:11 Dose: 3 ml Documented by: ZAINAB Thiamine HCl (Thiamine Hcl 100 Mg Tablet) 100 mg PO DAILY [facility] Last Admin: 01/08/22 09:13 Dose: 100 mg Documented by: ZAINAB Trazodone HCl (Trazodone Hcl 50 Mg Tablet) 50 mg PO BEDTIME [facility] Last Admin: 01/07/22 20:55 Dose: 50 mg Documented by: RAMU Labs CBC & Chem 7: 01/08/22 04:26 01/08/22 04:26 Labs: Laboratory Results - last 24 hr 01/08/22 01/08/22 04:26 04:26 MCV 93.9 MCH 30.1 MCHC 32.0 RDW 13.0 Plt Count 327 MPV 9.6 Absolute Nucleated RBC 0.000 Nucleated RBC % (auto) 0.0 Anion Gap 14 Estim Creat Clear Calc 70.5 Estimated GFR > 60 Fasting Glucose 83 Calcium 9.4 Microbiology Microbiology Results: Microbiology 01/06/22 19:12 Urine Culture - Preliminary Urine Catheterized - Degroot Catheter Gram negative justin Assessment and Plan (1) Colon cancer: Status: Acute Plan 66-year-old female presented with? suprapubic pain, and weight loss ?catheter associated urinary tract infection ?no sepsis ?reported multiple anaphylactic antibiotic allergies ?follow-up ID , plan for gentamycin for now (tolerated in ED) ?follow-up cultures - GNR in urine ?reported weight loss,? moderate protein calorie malnutrition ?concern for recurrence of malignancy versus short bowel syndrome ?outpatient follow-up recommended ?monitor output and electrolytes ?low gluten, low-fiber diet, Ensure t.i.d. ?history of DVT/PE ?status post IVC filter ?therapeutic Lovenox ?paroxysmal atrial fibrillation ?therapeutic Lovenox, digoxin hypothyroid synthroid copd continue inhalers hld statin full code reason for continued hospitalization: CAUTI and history of severe reactions to multiple antibiotics, requiring iv gentamycin inpatient. Quality Stroke Does the patient have a stroke diagnosis?: No VTE Prior VTE?: Yes VTE Risk Level:: Medical - moderate - high VTE Device Contraindication: Treatment Not Indicated VTE Drug Contraindication: N/A - Med Ordered
[2022-01-08] MEDS: Enoxaparin Sodium 60 MG/0.6 ML SYRINGE 50 MG SUBCUT ×2 (10:58→22:46)
[2022-01-08] MEDS: diphenhydrAMINE HCL 50 MG/ML VIAL 25 MG IVPUSH (10:58)
--- NOTE | 2022-01-08 11:27 | MHC.CM.PN ---
met with pt who lives with his he is active with [facility] he is vax x3 and will have own transportaion home
--- NOTE | 2022-01-08 11:29 | MHC.CM.PN ---
met with pt who lives with [facility] and her son pt is activen with [facility] and has a lock box pt says she will need transportaion home when she ids dcd she is vax x 1 with [facility] dc plan home with resumption of vna
[2022-01-08] MEDS: diphenhydrAMINE HCL 25 MG TABLET 50 MG PO (19:44)
[2022-01-08] MEDS: Atorvastatin Calcium 20 MG TABLET PO (19:45)
[2022-01-08] MEDS: rOPINIRole HCL 1 MG TABLET PO (19:45)
[2022-01-08] MEDS: traZODone HCL 50 MG TABLET PO (19:45)
[2022-01-08] MEDS: Amitriptyline HCl 25 MG TABLET PO (19:45)
--- NOTE | 2022-01-08 23:24 | PC.NURSE ---
Lab called for a verbal report for Gentamicin random=1.6 at [id number], Dr. Zhu was made aware.
[2022-01-09 03:36] VITALS: BP 107/67; PULSE 67; RESP 17; TEMP 36.8; O2SAT 95
[2022-01-09] MEDS: Omeprazole 20 MG CAPSULE.DR PO (05:32)
[2022-01-09] MEDS: Levothyroxine Sodium 50 MCG TABLET PO (05:32)
[2022-01-09 05:39] LABS: Hematocrit 35.9 % (37.0-47.0); Hemoglobin 11.8 g/dl (12.0-16.0); Mean Corpuscular HGB Conc 32.9 g/dl (31.0-35.0); Mean Corpuscular Hemoglobin 30.3 pg (27.0-33.0); Mean Corpuscular Volume 92.1 fL (80.0-98.0); Mean Platelet Volume 8.9 fL (9.4-12.3); Platelet Count 330 X10*3/uL (160-400); Red Cell Distribution Width 12.8 % (11.0-16.0); White Blood Count 4.6 X10*3/uL (4.8-10.8)
[2022-01-09 06:03] LABS: Anion Gap 15 (12-20); Blood Urea Nitrogen 15 mg/dL (9-16); Calcium 9.7 mg/dL (8.4-10.2); Carbon Dioxide 25 mmol/L (22-29); Chloride 104 mmol/L (96-108); Creatinine Clr Calc Pharmacy 67.2; Estimated Glomerular Filt Rate > 60; Glucose Fasting 89 mg/dL (60-99); Potassium 4.5 mmol/L (3.3-5.1); Sodium 139 mmol/L (135-145)
[2022-01-09 07:14] LABS: Gentamicin Random 1.6 mcg/mL
[2022-01-09 07:46] VITALS: BP 107/68; PULSE 89; RESP 18; TEMP 36.6; O2SAT 98
[2022-01-09] MEDS: Fluticasone/Vilanterol 100/25 BLST.W.DEV 1 PUFF INHALE (07:50)
[2022-01-09 07:52] VITALS: PULSE 78; RESP 18; O2SAT 95
--- NOTE | 2022-01-09 08:59 | HO.PM.IMPN ---
Subjective Subjective Date of Service: 01/09/22 Interval History: cc: suprapubic pain interval history: improved Cardiovascular Cardiovascular: Reports no additional cardiovascular complaints Respiratory Respiratory: Reports no additional respiratory complaints Physical Exam Vital Signs: Vital Signs: Last Vital Signs Temp 98 F 01/09/22 07:46 Pulse 89 01/09/22 07:46 Resp 18 01/09/22 07:52 BP 107/68 01/09/22 07:46 Pulse Ox 98 01/09/22 07:46 BMI result Body Mass Index 21.3 General: AO X 3, no acute distress Resp:? CTA bilateral, no accessory muscles used CVS: S1,S2,RRR GI: soft, non tender, non distended Neuro:? motor grossly intact, alert Psych: appropriate affect, appropriate insight? Objective Data Active Medications Acetaminophen (Acetaminophen 325 Mg Tablet) 650 mg PO Q6H PRN PRN Reason: Pain, Mild (Pain Scale 1-3) Albuterol Sulfate (Albuterol Sulfate 90 Mcg 8 Gm Inhaler) 2 puff INHALE Q6H PRN PRN Reason: for muscle spasm Amitriptyline HCl (Amitriptyline Hcl 25 Mg Tablet) 25 mg PO BEDTIME [facility] Last Admin: 01/08/22 19:45 Dose: 25 mg Documented by: MIRTA Apixaban (Apixaban 5 Mg Tablet) 5 mg PO BID [facility] Aspirin (Aspirin Enteric Coated 81 Mg Tablet.Dr) 81 mg PO DAILY [facility] Last Admin: 01/08/22 09:14 Dose: 81 mg Documented by: ZAINAB Atorvastatin Calcium (Atorvastatin Calcium 20 Mg Tablet) 20 mg PO BEDTIME [facility] Last Admin: 01/08/22 19:45 Dose: 20 mg Documented by: MIRTA Cholestyramine Resin (Cholestyramine (With Sugar) 4 Gm Powd.Pack) 4 gm PO BID [facility] Last Admin: 01/08/22 19:53 Dose: Not Given Documented by: MIRTA Non-Admin Reason: Patient Refused Dicyclomine HCl (Dicyclomine Hcl 10 Mg Capsule) 20 mg PO BID [facility] Last Admin: 01/08/22 19:45 Dose: 20 mg Documented by: MIRTA Digoxin (Digoxin 0.125 Mg Tablet) 0.125 mg PO DAILY [facility] Last Admin: 01/08/22 09:13 Dose: 0.125 mg Documented by: ZAINAB Diphenhydramine HCl (Diphenhydramine Hcl 25 Mg Tablet) 50 mg PO BEDTIME [facility] Last Admin: 01/08/22 19:44 Dose: 50 mg Documented by: MIRTA Diphenhydramine HCl (Diphenhydramine Hcl 50 Mg/Ml Vial) 25 mg IVPUSH Q24H PRN PRN Reason: with genta Last Admin: 01/08/22 10:58 Dose: 25 mg Documented by: ZAINAB Duloxetine HCl (Duloxetine Hcl 60 Mg Capsule.Dr) 60 mg PO DAILY [facility] Last Admin: 01/08/22 09:14 Dose: 60 mg Documented by: ZAINAB Fluticasone/Vilanterol (Fluticasone/Vilanterol 100/25 Blst.W.Dev) 1 puff INHALE RDAILY [facility] Last Admin: 01/09/22 07:50 Dose: 1 puff Documented by: NAOMY Folic Acid (Folic Acid 1 Mg Tablet) 1 mg PO DAILY [facility] Last Admin: 01/08/22 09:13 Dose: 1 mg Documented by: ZAINAB Gentamicin Sulfate 240 mg/ (Sodium Chloride) 256 mls @ 250.027 mls/hr IV Q24H [facility] Last Infusion: 01/08/22 12:24 Dose: 0 mls/hr Documented by: KEILA Ibuprofen (Ibuprofen 400 Mg Tablet) 400 mg PO Q6H PRN PRN Reason: moderate pain Levetiracetam (Levetiracetam 250 Mg Tablet) 750 mg PO BID [facility] Last Admin: 01/08/22 19:45 Dose: 750 mg Documented by: MIRTA Levothyroxine Sodium (Levothyroxine Sodium 50 Mcg Tablet) 50 mcg PO DAILY@0600 [facility] Last Admin: 01/09/22 05:32 Dose: 50 mcg Documented by: MIRTA Loperamide HCl (Loperamide Hcl 2 Mg Capsule) 2 mg PO 8XD PRN PRN Reason: Loose Stool Loratadine (Loratadine 10 Mg Tablet) 10 mg PO DAILY [facility] Last Admin: 01/08/22 09:13 Dose: 10 mg Documented by: ZAINAB Magnesium Oxide (Magnesium Oxide 400 Mg Tablet) 400 mg PO BID [facility] Last Admin: 01/08/22 19:45 Dose: 400 mg Documented by: MIRTA Multivitamins/Vitamin C (Multivitamin Tablet) 1 tab PO DAILY [facility] Last Admin: 01/08/22 09:13 Dose: 1 tab Documented by: ZAINAB Omeprazole (Omeprazole 20 Mg Capsule.Dr) 20 mg PO DAILY@0630 [facility] Last Admin: 01/09/22 05:32 Dose: 20 mg Documented by: MIRTA Oxybutynin Chloride (Oxybutynin Chloride Er 5 Mg Tab.Er.24) 10 mg PO DAILY [facility] Last Admin: 01/08/22 09:11 Dose: 10 mg Documented by: ZAINAB Pharmacy Consult (Consult Rx Perform Med Rec) 1 each MISCELLANE ONCE PRN PRN Reason: Consult order Potassium Chloride (Potassium Chloride Er 10 Meq Capsule.Er) 10 meq PO BID [facility] Last Admin: 01/08/22 19:44 Dose: 10 meq Documented by: MIRTA Ropinirole HCl (Ropinirole Hcl 1 Mg Tablet) 1 mg PO BEDTIME [facility] Last Admin: 01/08/22 19:45 Dose: 1 mg Documented by: MIRTA Sodium Chloride (0.9 % Sodium Chloride Flush 3 Ml Syringe) 3 ml IVFLUSH QSHIFT [facility] Last Admin: 01/08/22 19:45 Dose: 3 ml Documented by: MIRTA Thiamine HCl (Thiamine Hcl 100 Mg Tablet) 100 mg PO DAILY [facility] Last Admin: 01/08/22 09:13 Dose: 100 mg Documented by: ZAINAB Trazodone HCl (Trazodone Hcl 50 Mg Tablet) 50 mg PO BEDTIME [facility] Last Admin: 01/08/22 19:45 Dose: 50 mg Documented by: MIRTA Labs CBC & Chem 7: 01/09/22 05:21 01/09/22 05:21 Labs: Laboratory Results - last 24 hr 01/08/22 01/09/22 01/09/22 19:54 05:21 05:21 MCV 92.1 MCH 30.3 MCHC 32.9 RDW 12.8 Plt Count 330 MPV 8.9 L Absolute Nucleated RBC 0.000 Nucleated RBC % (auto) 0.0 Anion Gap 15 Estim Creat Clear Calc 67.2 Estimated GFR > 60 Fasting Glucose 89 Calcium 9.7 Random Gentamicin 1.6 Microbiology Microbiology Results: Microbiology 01/06/22 19:12 Urine Culture - Final Urine Catheterized - Degroot Catheter Escherichia coli Klebsiella pneumoniae Assessment and Plan (1) Colon cancer: Status: Acute Plan 66-year-old female presented with? suprapubic pain, and weight loss ?catheter associated urinary tract infection ?no sepsis ?reported multiple anaphylactic antibiotic allergies ?follow-up ID , plan for gentamycin day 3/7 ?urine grew pansensitive ecoli and klebsiella resistent to ampicillin with intermidiate activity to nitrofurantoin ?reported weight loss,? moderate protein calorie malnutrition ?concern for recurrence of malignancy versus short bowel syndrome ?outpatient follow-up recommended ?monitor output and electrolytes ?low gluten, low-fiber diet, Ensure t.i.d. ?history of DVT/PE ?status post IVC filter had stopped lovenox due to injection site hematomas, will change to eliquis ?paroxysmal atrial fibrillation eliquis, digoxin hypothyroid synthroid copd continue inhalers hld statin full code reason for continued hospitalization: CAUTI and history of severe reactions to multiple antibiotics, requiring iv gentamycin inpatient. Quality Stroke Does the patient have a stroke diagnosis?: No VTE Prior VTE?: Yes VTE Risk Level:: Medical - moderate - high VTE Device Contraindication: Treatment Not Indicated VTE Drug Contraindication: N/A - Med Ordered
[2022-01-09] MEDS: Dicyclomine HCl 10 MG CAPSULE 20 MG PO ×2 (10:04→20:45)
[2022-01-09] MEDS: Multivitamin TABLET 1 TAB PO (10:04)
[2022-01-09] MEDS: 0.9 % Sodium Chloride Flush 3 ML SYRINGE IVFLUSH ×2 (10:04→20:47)
[2022-01-09] MEDS: DULoxetine HCl 60 MG CAPSULE.DR PO (10:04)
[2022-01-09] MEDS: Aspirin Enteric Coated 81 MG TABLET.DR PO (10:05)
[2022-01-09] MEDS: Digoxin 0.125 MG TABLET PO (10:05)
[2022-01-09] MEDS: Loratadine 10 MG TABLET PO (10:05)
[2022-01-09] MEDS: levETIRAcetam 250 MG TABLET 750 MG PO ×2 (10:05→20:46)
[2022-01-09] MEDS: Magnesium Oxide 400 MG TABLET PO ×2 (10:06→20:46)
[2022-01-09] MEDS: Apixaban 5 MG TABLET PO ×2 (10:06→20:46)
[2022-01-09] MEDS: Folic Acid 1 MG TABLET PO (10:06)
[2022-01-09] MEDS: Thiamine HCL 100 MG TABLET PO (10:06)
[2022-01-09] MEDS: diphenhydrAMINE HCL 50 MG/ML VIAL 25 MG IVPUSH (10:07)
[2022-01-09 10:56] VITALS: BP 98/63; PULSE 86; RESP 18; TEMP 37.3; O2SAT 96
[2022-01-09 15:38] VITALS: BP 121/57; PULSE 91; RESP 18; TEMP 36.9; O2SAT 98
[2022-01-09 16:12] VITALS: BMI 21.3
[2022-01-09 19:34] VITALS: BP 97/62; PULSE 77; RESP 18; TEMP 36.4; O2SAT 97
[2022-01-09] MEDS: diphenhydrAMINE HCL 25 MG TABLET 50 MG PO (20:46)
[2022-01-09] MEDS: rOPINIRole HCL 1 MG TABLET PO (20:46)
[2022-01-09] MEDS: traZODone HCL 50 MG TABLET PO (20:46)
[2022-01-09] MEDS: Atorvastatin Calcium 20 MG TABLET PO (20:46)
[2022-01-09] MEDS: Amitriptyline HCl 25 MG TABLET PO (20:46)
--- NOTE | 2022-01-09 22:53 | P.CNID_ITS ---
History of Present Illness Data of Consult Service Date: 01/09/22 Requesting physician: Hector Pride Primary Care Provider: Bob Camp MD HPI Reason for consult: dysuria She presents with dysuria and mild lower abdominal discomfort. She has no fever or chills. She has cultures Ecoli/Klebsiella. Review of Systems Review of Systems: Yes all other systems are reviewed and are negative [facility] Past Medical History Medical History Colon cancer Conversion disorder COPD (chronic obstructive pulmonary disease) Deep vein thrombosis Paroxysmal A-fib Pseudoseizure Family History Family History Mother CAD (coronary artery disease) Other Mental health disorder Family history: reviewed and not pertinent Surgical History Surgical History History of bladder surgery History of colectomy History of colonoscopy History of colostomy reversal History of facial surgery History of partial gastrectomy History of partial surgical removal of colon History of sinus surgery S/P IVC filter Social History Social History Household Members: Other Household Members Other:: 3 roommates Housing: House Do you presently have visiting nurse or other home services: Yes Alcohol intake: never Patient Tobacco Use Status: Never used Tobacco e-Cigarette/Vaping Use: Never Used Second Hand Smoke Exposure: Yes service: No Current occupational status: disabled Cognitive needs: Yes (cane) Hearing needs: No Vision needs: Yes (Glasses) Meds Allergies Allergy/AdvReac Type Severity Reaction Status Date / Time Tetracyclines Allergy Severe Anaphylaxis Verified 01/07/22 03:40 divalproex sodium [Depakote] Allergy Unknown altered Verified 01/04/22 17:52 mental status erythromycin base Allergy Unknown ANAPHALAXIS Verified 01/04/22 17:52 [ERYTHROMYCIN BASE] gluten [GLUTEN] Allergy Unknown BLOATING,RA Verified 01/04/22 17:52 SH penicillin V Allergy Unknown anaphylaxis Verified 01/04/22 17:52 Penicillins [PCN] Allergy Unknown ANAPHALAXIS Verified 01/04/22 17:52 SEAFOOD Allergy Unknown ANAPHALAXIS, Verified 01/04/22 17:52 anaphylaxis Sulfa (Sulfonamide Allergy Unknown ANAPHALAXIS, Verified 01/04/22 17:52 Antibiotics) vomiting [SULFA (SULFONAMIDE ANTIBIOTICS)] levofloxacin [From Levaquin] Allergy Anaphylaxis Verified 01/09/22 14:40 Erythromycin Allergy Unknown anaphylaxis Uncoded 01/04/22 17:52 gluten,rice Allergy Unknown Unknown Uncoded 01/04/22 17:52 SULFA ABX, PCN, Allergy Unknown anaphylaxis Uncoded 01/04/22 17:52 Active Medications: Current Medications Acetaminophen (Acetaminophen 325 Mg Tablet) 650 mg PO Q6H PRN PRN Reason: Pain, Mild (Pain Scale 1-3) Albuterol Sulfate (Albuterol Sulfate 90 Mcg 8 Gm Inhaler) 2 puff INHALE Q6H PRN PRN Reason: for muscle spasm Amitriptyline HCl (Amitriptyline Hcl 25 Mg Tablet) 25 mg PO BEDTIME [facility] Last Admin: 01/09/22 20:46 Dose: 25 mg Documented by: Apixaban (Apixaban 5 Mg Tablet) 5 mg PO BID [facility] Last Admin: 01/09/22 20:46 Dose: 5 mg Documented by: Aspirin (Aspirin Enteric Coated 81 Mg Tablet.Dr) 81 mg PO DAILY [facility] Last Admin: 01/09/22 10:05 Dose: 81 mg Documented by: Atorvastatin Calcium (Atorvastatin Calcium 20 Mg Tablet) 20 mg PO BEDTIME [facility] Last Admin: 01/09/22 20:46 Dose: 20 mg Documented by: Cholestyramine Resin (Cholestyramine (With Sugar) 4 Gm Powd.Pack) 4 gm PO BID [facility] Last Admin: 01/09/22 21:48 Dose: Not Given Documented by: Dicyclomine HCl (Dicyclomine Hcl 10 Mg Capsule) 20 mg PO BID [facility] Last Admin: 01/09/22 20:45 Dose: 20 mg Documented by: Digoxin (Digoxin 0.125 Mg Tablet) 0.125 mg PO DAILY [facility] Last Admin: 01/09/22 10:05 Dose: 0.125 mg Documented by: Diphenhydramine HCl (Diphenhydramine Hcl 25 Mg Tablet) 50 mg PO BEDTIME [facility] Last Admin: 01/09/22 20:46 Dose: 50 mg Documented by: Diphenhydramine HCl (Diphenhydramine Hcl 50 Mg/Ml Vial) 25 mg IVPUSH Q24H PRN PRN Reason: with genta Last Admin: 01/09/22 10:07 Dose: 25 mg Documented by: Duloxetine HCl (Duloxetine Hcl 60 Mg Capsule.) 60 mg PO DAILY [facility] Last Admin: 01/09/22 10:04 Dose: 60 mg Documented by: Fluticasone/Vilanterol (Fluticasone/Vilanterol 100/25 Blst.W.Dev) 1 puff INHALE RDAILY [facility] Last Admin: 01/09/22 07:50 Dose: 1 puff Documented by: Folic Acid (Folic Acid 1 Mg Tablet) 1 mg PO DAILY [facility] Last Admin: 01/09/22 10:06 Dose: 1 mg Documented by: Tobramycin Sulfate 240 mg/ (Sodium Chloride) 106 mls @ 212 mls/hr IV Q24H [facility] Ibuprofen (Ibuprofen 400 Mg Tablet) 400 mg PO Q6H PRN PRN Reason: moderate pain Levetiracetam (Levetiracetam 250 Mg Tablet) 750 mg PO BID [facility] Last Admin: 01/09/22 20:46 Dose: 750 mg Documented by: Levothyroxine Sodium (Levothyroxine Sodium 50 Mcg Tablet) 50 mcg PO DAILY@0600 [facility] Last Admin: 01/09/22 05:32 Dose: 50 mcg Documented by: Loperamide HCl (Loperamide Hcl 2 Mg Capsule) 2 mg PO 8XD PRN PRN Reason: Loose Stool Loratadine (Loratadine 10 Mg Tablet) 10 mg PO DAILY [facility] Last Admin: 01/09/22 10:05 Dose: 10 mg Documented by: Magnesium Oxide (Magnesium Oxide 400 Mg Tablet) 400 mg PO BID [facility] Last Admin: 01/09/22 20:46 Dose: 400 mg Documented by: Multivitamins/Vitamin C (Multivitamin Tablet) 1 tab PO DAILY [facility] Last Admin: 01/09/22 10:04 Dose: 1 tab Documented by: Omeprazole (Omeprazole 20 Mg Capsule.) 20 mg PO DAILY@0630 [facility] Last Admin: 01/09/22 05:32 Dose: 20 mg Documented by: Oxybutynin Chloride (Oxybutynin Chloride Er 5 Mg Tab.Er.24) 10 mg PO DAILY [facility] Last Admin: 01/09/22 10:06 Dose: 10 mg Documented by: Pharmacy Consult (Consult Rx Perform Med Rec) 1 each MISCELLANE ONCE PRN PRN Reason: Consult order Potassium Chloride (Potassium Chloride Er 10 Meq Capsule.Er) 10 meq PO BID [facility] Last Admin: 01/09/22 20:46 Dose: 10 meq Documented by: Ropinirole HCl (Ropinirole Hcl 1 Mg Tablet) 1 mg PO BEDTIME [facility] Last Admin: 01/09/22 20:46 Dose: 1 mg Documented by: Sodium Chloride (0.9 % Sodium Chloride Flush 3 Ml Syringe) 3 ml IVFLUSH QSHIFT [facility] Last Admin: 01/09/22 20:47 Dose: 3 ml Documented by: Thiamine HCl (Thiamine Hcl 100 Mg Tablet) 100 mg PO DAILY [facility] Last Admin: 01/09/22 10:06 Dose: 100 mg Documented by: Trazodone HCl (Trazodone Hcl 50 Mg Tablet) 50 mg PO BEDTIME [facility] Last Admin: 01/09/22 20:46 Dose: 50 mg Documented by: Home Medications Medication Instructions Recorded Confirmed Last Taken Type aspirin 81 mg tablet,delayed 81 mg PO DAILY 01/28/21 01/07/22 01/06/22 History release (Adult Low Dose Aspirin) pantoprazole 40 mg tablet,delayed 40 mg PO DAILY 12/22/21 01/07/22 01/06/22 History release amitriptyline 25 mg tablet 1 tab PO BEDTIME 01/07/22 01/07/22 01/06/22 History cholestyramine (with sugar) 4 gram 1 packet PO BID 01/07/22 01/07/22 01/06/22 History powder for susp in a packet diphenhydramine HCl 25 mg tablet 50 mg PO BEDTIME 01/07/22 01/07/22 01/06/22 Hi story (Banophen) folic acid 1 mg tablet 1 tab PO DAILY 01/07/22 01/07/22 01/06/22 History loperamide 2 mg capsule 2 mg PO NEEDED PRN 01/07/22 01/07/22 01/06/22 History magnesium oxide 400 mg (241.3 mg 1 tab PO BID 01/07/22 01/07/22 01/06/22 History magnesium) tablet multivitamin-ferrous 1 tab PO DAILY 01/07/22 01/07/22 01/06/22 History fumarate-folic acid 18 mg-400 mcg tablet (Certavite-Antioxidant) ondansetron HCl 4 mg tablet 1 tab PO Q8H PRN 04/01/07/22 01/06/22 History oxybutynin chloride 5 mg tablet 1 tab PO BID 01/07/22 01/07/22 01/06/22 History potassium chloride 10 mEq 1 tab PO BID 01/07/22 01/07/22 01/06/22 History tablet,extended release(part/cryst) simvastatin 40 mg tablet 40 mg PO BEDTIME 01/07/22 01/07/22 01/06/22 History thiamine HCl (vitamin B1) 100 mg 1 tab PO DAILY 01/07/22 01/07/22 01/06/22 History tablet (Vitamin B-1) trazodone 50 mg tablet 1 tab PO BEDTIME 01/07/22 01/07/22 01/06/22 History Physical Exam Vital Signs: Vital Signs: Last Vital Signs Temp 97.6 F 01/09/22 19:34 Pulse 77 01/09/22 19:34 Resp 18 01/09/22 19:34 BP 97/62 01/09/22 19:34 Pulse Ox 97 01/09/22 19:34 BMI result Body Mass Index 21.3 Const: General: cooperative Limitations: no limitations HEENT: Head: Yes normal to inspection Mouth: Normal oral and palatal mucosa present Resp: Effort & Inspection: normal respiratory effort Cardio: Rate: regular rate Rhythm: regular rhythm GI: Other: distended ostomy bag with air Extrem: General: Yes normal to inspection Results Labs CBC & Chem 7: 01/09/22 05:21 01/09/22 05:21 Labs: Short CBC 01/09/22 Range/Units 05:21 WBC 4.6 L (4.8-10.8) X10*3/uL Hgb 11.8 L (12.0-16.0) g/dl Hct 35.9 L (37.0-47.0) % Plt Count 330 (160-400) X10*3/uL BMP 01/09/22 05:21 Sodium 139 Potassium 4.5 Chloride 104 Carbon Dioxide 25 BUN 15 Creatinine 0.63 Calcium 9.7 Microbiology Microbiology Results: Microbiology 01/06/22 19:12 Urine Catheterized - Degroot Catheter Urine Culture - Final Escherichia coli Klebsiella pneumoniae Assessment and Plan (1) Recurrent UTI: Status: Acute She has gram negative UTI. She claims multiple allergies Plan Gentamicin or Tobramycin 10 d See Sericulturist outpatient.
[2022-01-10] VITALS (8 sets, daily range): BP systolic 93–117; BP diastolic 53–63; PULSE 64–92; RESP 18; TEMP 36.3–37.1; O2SAT 96–97
[2022-01-10] MEDS: Omeprazole 20 MG CAPSULE.DR PO (05:40)
[2022-01-10] MEDS: Levothyroxine Sodium 50 MCG TABLET PO (05:40)
[2022-01-10 06:06] LABS: Hematocrit 36.8 % (37.0-47.0); Hemoglobin 12.1 g/dl (12.0-16.0); Mean Corpuscular HGB Conc 32.9 g/dl (31.0-35.0); Mean Corpuscular Hemoglobin 30.2 pg (27.0-33.0); Mean Corpuscular Volume 91.8 fL (80.0-98.0); Mean Platelet Volume 9.2 fL (9.4-12.3); Platelet Count 325 X10*3/uL (160-400); Red Blood Count 4.01 X10*6/uL (4.20-5.50); Red Cell Distribution Width 12.8 % (11.0-16.0); White Blood Count 5.5 X10*3/uL (4.8-10.8)
[2022-01-10 06:33] LABS: Anion Gap 14 (12-20); Blood Urea Nitrogen 21 mg/dL (9-16); Calcium 9.8 mg/dL (8.4-10.2); Carbon Dioxide 27 mmol/L (22-29); Chloride 103 mmol/L (96-108); Estimated Glomerular Filt Rate > 60; Glucose Fasting 86 mg/dL (60-99); Potassium 4.5 mmol/L (3.3-5.1); Sodium 139 mmol/L (135-145)
[2022-01-10] MEDS: Fluticasone/Vilanterol 100/25 BLST.W.DEV 1 PUFF INHALE (08:06)
--- NOTE | 2022-01-10 08:43 | P.PNIM_ITS ---
Subjective Subjective Date of Service: 01/10/22 Interval History: cc: suprapubic pain interval history: pain improved Cardiovascular Cardiovascular: Reports no additional cardiovascular complaints Respiratory Respiratory: Reports no additional respiratory complaints Physical Exam Vital Signs: Vital Signs: Last Vital Signs Temp 98.7 F 01/10/22 08:00 Pulse 81 01/10/22 08:00 Resp 18 01/10/22 08:07 BP 96/58 L 01/10/22 08:00 Pulse Ox 97 01/10/22 08:00 BMI result Body Mass Index 21.3 onst General:?cooperative Limitations:?no limitations HEENT Head:?Yes normal to inspection Mouth:?Normal oral and palatal mucosa present Resp Effort & Inspection:?normal respiratory effort Cardio Rate:?regular rate Rhythm:?regular rhythm GI Other: distended ostomy bag with air Extrem General:?Yes normal to inspection Objective Data Active Medications Acetaminophen (Acetaminophen 325 Mg Tablet) 650 mg PO Q6H PRN PRN Reason: Pain, Mild (Pain Scale 1-3) Albuterol Sulfate (Albuterol Sulfate 90 Mcg 8 Gm Inhaler) 2 puff INHALE Q6H PRN PRN Reason: for muscle spasm Amitriptyline HCl (Amitriptyline Hcl 25 Mg Tablet) 25 mg PO BEDTIME [facility] Last Admin: 01/09/22 20:46 Dose: 25 mg Documented by: MIRTA Apixaban (Apixaban 5 Mg Tablet) 5 mg PO BID [facility] Last Admin: 01/09/22 20:46 Dose: 5 mg Documented by: MIRTA Aspirin (Aspirin Enteric Coated 81 Mg Tablet.) 81 mg PO DAILY [facility] Last Admin: 01/09/22 10:05 Dose: 81 mg Documented by: ZAINAB Atorvastatin Calcium (Atorvastatin Calcium 20 Mg Tablet) 20 mg PO BEDTIME [facility] Last Admin: 01/09/22 20:46 Dose: 20 mg Documented by: MIRTA Cholestyramine Resin (Cholestyramine (With Sugar) 4 Gm Powd.Pack) 4 gm PO BID [facility] Last Admin: 01/09/22 21:48 Dose: Not Given Documented by: MIRTA Non-Admin Reason: Patient Refused Dicyclomine HCl (Dicyclomine Hcl 10 Mg Capsule) 20 mg PO BID [facility] Last Admin: 01/09/22 20:45 Dose: 20 mg Documented by: MIRTA Digoxin (Digoxin 0.125 Mg Tablet) 0.125 mg PO DAILY [facility] Last Admin: 01/09/22 10:05 Dose: 0.125 mg Documented by: ZAINAB Diphenhydramine HCl (Diphenhydramine Hcl 25 Mg Tablet) 50 mg PO BEDTIME [facility] Last Admin: 01/09/22 20:46 Dose: 50 mg Documented by: MIRTA Diphenhydramine HCl (Diphenhydramine Hcl 50 Mg/Ml Vial) 25 mg IVPUSH Q24H PRN PRN Reason: with genta Last Admin: 01/09/22 10:07 Dose: 25 mg Documented by: ZAINAB Duloxetine HCl (Duloxetine Hcl 60 Mg Capsule.Dr) 60 mg PO DAILY [facility] Last Admin: 01/09/22 10:04 Dose: 60 mg Documented by: ZAINAB Fluticasone/Vilanterol (Fluticasone/Vilanterol 100/25 Blst.W.Dev) 1 puff INHALE RDAILY [facility] Last Admin: 01/10/22 08:06 Dose: 1 puff Documented by: NAOMY Folic Acid (Folic Acid 1 Mg Tablet) 1 mg PO DAILY [facility] Last Admin: 01/09/22 10:06 Dose: 1 mg Documented by: ZAINAB Tobramycin Sulfate 240 mg/ (Sodium Chloride) 106 mls @ 212 mls/hr IV Q24H [facility] Ibuprofen (Ibuprofen 400 Mg Tablet) 400 mg PO Q6H PRN PRN Reason: moderate pain Levetiracetam (Levetiracetam 250 Mg Tablet) 750 mg PO BID [facility] Last Admin: 01/09/22 20:46 Dose: 750 mg Documented by: MIRTA Levothyroxine Sodium (Levothyroxine Sodium 50 Mcg Tablet) 50 mcg PO DAILY@0600 [facility] Last Admin: 01/10/22 05:40 Dose: 50 mcg Documented by: MIRTA Loperamide HCl (Loperamide Hcl 2 Mg Capsule) 2 mg PO 8XD PRN PRN Reason: Loose Stool Loratadine (Loratadine 10 Mg Tablet) 10 mg PO DAILY [facility] Last Admin: 01/09/22 10:05 Dose: 10 mg Documented by: ZAINAB Magnesium Oxide (Magnesium Oxide 400 Mg Tablet) 400 mg PO BID [facility] Last Admin: 01/09/22 20:46 Dose: 400 mg Documented by: MIRTA Multivitamins/Vitamin C (Multivitamin Tablet) 1 tab PO DAILY [facility] Last Admin: 01/09/22 10:04 Dose: 1 tab Documented by: ZAINAB Omeprazole (Omeprazole 20 Mg Capsule.Dr) 20 mg PO DAILY@0630 [facility] Last Admin: 01/10/22 05:40 Dose: 20 mg Documented by: MIRTA Oxybutynin Chloride (Oxybutynin Chloride Er 5 Mg Tab.Er.24) 10 mg PO DAILY [facility] Last Admin: 01/09/22 10:06 Dose: 10 mg Documented by: ZAINAB Pharmacy Consult (Consult Rx Perform Med Rec) 1 each MISCELLANE ONCE PRN PRN Reason: Consult order Potassium Chloride (Potassium Chloride Er 10 Meq Capsule.Er) 10 meq PO BID [facility] Last Admin: 01/09/22 20:46 Dose: 10 meq Documented by: MIRTA Ropinirole HCl (Ropinirole Hcl 1 Mg Tablet) 1 mg PO BEDTIME [facility] Last Admin: 01/09/22 20:46 Dose: 1 mg Documented by: MIRTA Sodium Chloride (0.9 % Sodium Chloride Flush 3 Ml Syringe) 3 ml IVFLUSH QSHIFT [facility] Last Admin: 01/09/22 20:47 Dose: 3 ml Documented by: MIRTA Thiamine HCl (Thiamine Hcl 100 Mg Tablet) 100 mg PO DAILY [facility] Last Admin: 01/09/22 10:06 Dose: 100 mg Documented by: ZAINAB Trazodone HCl (Trazodone Hcl 50 Mg Tablet) 50 mg PO BEDTIME [facility] Last Admin: 01/09/22 20:46 Dose: 50 mg Documented by: MIRTA Labs CBC & Chem 7: 01/10/22 05:24 01/10/22 05:24 Labs: Laboratory Results - last 24 hr 01/10/22 01/10/22 05:24 05:24 MCV 91.8 MCH 30.2 MCHC 32.9 RDW 12.8 Plt Count 325 MPV 9.2 L Absolute Nucleated RBC 0.000 Nucleated RBC % (auto) 0.0 Anion Gap 14 Estim Creat Clear Calc 66.0 Estimated GFR > 60 Fasting Glucose 86 Calcium 9.8 Microbiology Microbiology Results: Microbiology 01/06/22 19:12 Urine Culture - Final Urine Catheterized - Degroot Catheter Escherichia coli Klebsiella pneumoniae Assessment and Plan (1) Colon cancer: Status: Acute Plan 66-year-old female presented with? suprapubic pain, and weight loss ?catheter associated urinary tract infection ?no sepsis ?reported multiple anaphylactic antibiotic allergies ID appreciated , plan for 10 days gentamycin or tobramycin, currently day 5/10 ?urine grew pansensitive ecoli and klebsiella resistent to ampicillin with intermediate activity to nitrofurantoin should follow up outpatient with helix coil winder to confirm reported anaphylaxis ?reported weight loss,? moderate protein calorie malnutrition ?concern for recurrence of malignancy versus short bowel syndrome ?outpatient follow-up recommended ?monitor output and electrolytes ?low gluten, low-fiber diet, Ensure t.i.d. ?history of DVT/PE ?status post IVC filter had stopped lovenox due to injection site hematomas, now changed to eliquis ?paroxysmal atrial fibrillation eliquis, digoxin hypothyroid synthroid copd continue inhalers hld statin full code reason for continued hospitalization: CAUTI and history of severe reactions to multiple antibiotics, requiring iv gentamycin inpatient. Quality Stroke Does the patient have a stroke diagnosis?: No VTE Prior VTE?: Yes VTE Risk Level:: Medical - moderate - high VTE Device Contraindication: Treatment Not Indicated VTE Drug Contraindication: N/A - Med Ordered
[2022-01-10] MEDS: Aspirin Enteric Coated 81 MG TABLET.DR PO (09:19)
[2022-01-10] MEDS: levETIRAcetam 250 MG TABLET 750 MG PO ×2 (09:21→20:05)
[2022-01-10] MEDS: DULoxetine HCl 60 MG CAPSULE.DR PO (09:21)
[2022-01-10] MEDS: Magnesium Oxide 400 MG TABLET PO ×2 (09:22→20:08)
[2022-01-10] MEDS: Dicyclomine HCl 10 MG CAPSULE 20 MG PO ×2 (09:22→20:06)
[2022-01-10] MEDS: Apixaban 5 MG TABLET PO ×2 (09:22→20:08)
[2022-01-10] MEDS: Thiamine HCL 100 MG TABLET PO (09:22)
[2022-01-10] MEDS: Digoxin 0.125 MG TABLET PO (09:23)
[2022-01-10] MEDS: Loratadine 10 MG TABLET PO (09:25)
[2022-01-10] MEDS: Folic Acid 1 MG TABLET PO (09:25)
[2022-01-10] MEDS: Multivitamin TABLET 1 TAB PO (09:25)
--- NOTE | 2022-01-10 14:21 | MHC.CM.PN ---
alexander disease case manager rn ntoe electronic medical record revoiewed along with case discussed with staff nurse and hospitlait patient to be discharged home on iv tobramycin dose to be finalized and duration with id , referral sent to counts include 234 beds at the [facility] where shei is active with [facility] for [facility]x , patient to have midline placed today discharge plan for 01/11/22 will need teach here before d/c and new abx to be given through the line .
--- NOTE | 2022-01-10 17:19 | HO.MIDLINE_ITS ---
PICC Line Insertion MIDLINE INSERTION Diagnosis: [no IV access] Indication: [needs antibiotics] Using sterile technique including cap and mask, glove and drape, the [left] arm was prepped and draped in the usual sterile fashion of full barrier technique with G. Using ultrasound guidance, [left Basilic] vein access was obtained twice by Singh Vasquez RN, but unable to pass guidewire and place midline. Left basilic vein was then accessed by Nimisha Miranda RN, but unable to pass ST guidewire. Left brachial vein was accessed by Nimisha Miranda RN and a single lumen, non PASV 20G/10CM ST Midline was positioned. The procedure was performed in [S272]. Ultrasound was used to document vein patency and for needle entry. A formal ultrasound picture was recorded. Vascular Supervisor Sandblaster has released the line for use and it is currently dressed with a StatLock, Tegaderm, and CHG disc. Verification has been performed for blood return and line patency. Arm Circumference: [29 CM] Equipment: [GoSave PowerGlide ST Midline] Catheter Type: [single lumen, non PASV, ([id number])] Lot #: [[id number]]
[2022-01-10] MEDS: diphenhydrAMINE HCL 50 MG/ML VIAL 25 MG IVPUSH (17:27)
[2022-01-10] MEDS: rOPINIRole HCL 1 MG TABLET PO (20:06)
[2022-01-10] MEDS: Atorvastatin Calcium 20 MG TABLET PO (20:08)
[2022-01-10] MEDS: traZODone HCL 50 MG TABLET PO (20:08)
[2022-01-10] MEDS: Amitriptyline HCl 25 MG TABLET PO (20:09)
[2022-01-10] MEDS: diphenhydrAMINE HCL 25 MG TABLET 50 MG PO (20:10)
[2022-01-10] MEDS: 0.9 % Sodium Chloride Flush 3 ML SYRINGE IVFLUSH (23:30)
[2022-01-11] VITALS (7 sets, daily range): BP systolic 95–108; BP diastolic 61–73; PULSE 62–82; RESP 18–20; TEMP 36.1–36.9; O2SAT 95–98
[2022-01-11] MEDS: Omeprazole 20 MG CAPSULE.DR PO (05:10)
[2022-01-11] MEDS: Levothyroxine Sodium 50 MCG TABLET PO (05:10)
[2022-01-11 05:41] LABS: Hematocrit 35.6 % (37.0-47.0); Hemoglobin 11.7 g/dl (12.0-16.0); Mean Corpuscular HGB Conc 32.9 g/dl (31.0-35.0); Mean Corpuscular Hemoglobin 30.2 pg (27.0-33.0); Mean Corpuscular Volume 91.8 fL (80.0-98.0); Mean Platelet Volume 9.1 fL (9.4-12.3); Platelet Count 317 X10*3/uL (160-400); Red Blood Count 3.88 X10*6/uL (4.20-5.50); Red Cell Distribution Width 12.9 % (11.0-16.0); White Blood Count 6.6 X10*3/uL (4.8-10.8)
[2022-01-11 06:12] LABS: Anion Gap 14 (12-20); Blood Urea Nitrogen 27 mg/dL (9-16); Calcium 9.4 mg/dL (8.4-10.2); Carbon Dioxide 24 mmol/L (22-29); Chloride 103 mmol/L (96-108); Creatinine Clr Calc Pharmacy 68.3; Estimated Glomerular Filt Rate > 60; Glucose Fasting 89 mg/dL (60-99); Potassium 4.1 mmol/L (3.3-5.1); Sodium 137 mmol/L (135-145)
[2022-01-11] MEDS: Fluticasone/Vilanterol 100/25 BLST.W.DEV 1 PUFF INHALE (07:45)
[2022-01-11] MEDS: Folic Acid 1 MG TABLET PO (08:10)
[2022-01-11] MEDS: DULoxetine HCl 60 MG CAPSULE.DR PO (08:10)
[2022-01-11] MEDS: Multivitamin TABLET 1 TAB PO (08:10)
[2022-01-11] MEDS: Aspirin Enteric Coated 81 MG TABLET.DR PO (08:11)
[2022-01-11] MEDS: Dicyclomine HCl 10 MG CAPSULE 20 MG PO ×2 (08:11→20:27)
[2022-01-11] MEDS: levETIRAcetam 250 MG TABLET 750 MG PO ×2 (08:11→20:26)
[2022-01-11] MEDS: Magnesium Oxide 400 MG TABLET PO ×2 (08:11→20:29)
[2022-01-11] MEDS: Digoxin 0.125 MG TABLET PO (08:13)
[2022-01-11] MEDS: Apixaban 5 MG TABLET PO ×2 (08:13→20:27)
[2022-01-11] MEDS: Thiamine HCL 100 MG TABLET PO (08:13)
[2022-01-11] MEDS: Loratadine 10 MG TABLET PO (08:13)
[2022-01-11] MEDS: 0.9 % Sodium Chloride Flush 3 ML SYRINGE IVFLUSH ×3 (08:15→23:29)
[2022-01-11] MEDS: oxyCODONE HCl Immed Release 5 MG TABLET PO ×2 (11:03→16:52)
--- NOTE | 2022-01-11 11:16 | HE.PHANOTE ---
RE Tobramycin Tobramycin dose was given at 1723 on 01/10, but was SCHEDULED for 1100. Pharmacy was never notified of the late admin. Luckily chart was reviewed before shift change and we were able to change the random tobramycin blood draw for 0100. Potentially this late dose could have led to an inaccurate level. Discussed with Dr Frances. Thanks Deion
--- NOTE | 2022-01-11 11:29 | P.DS_ITS ---
DS: Providers Provider Date of Service: 01/12/22 Date of admission: 01/07/22 10:57 Primary care physician: Bob Camp MD Consults: 01/07/22 10:49 Consult to Infectious Diseases Routine Consulting Provider: Randee Valdes Reason for consultation: ?CAUTI, multiple anaphylactic abx allergies DS: Diagnosis Discharge Diagnosis (1) Recurrent UTI: Status: Resolved (2) Paroxysmal A-fib: Status: Acute (3) UTI (urinary tract infection): Status: Acute DS: Summary Hospital Course Hospital Course: Admission note HPI 66F ? With past medical history of chronic indwelling Degroot catheter due to neurogenic bladder presented with suprapubic pain, fever at home of 101, ongoing for several days.? Patient also notes weight loss over last few months, she reports about 40 lb weight loss, however, review of EMR shows patient has lost about 12 lb over the past year, and about 22lbs since 2019.? she has a history of colon cancer status post resection complicated by multiple small-bowel obstructions.? She reports that she was told she is in remission.? She ? Reports high output in her colostomy. in ED UA was positive for WBC, nitrate, bacteria.? Patient has reported anaphylactic allergies to multiple medications.? Therefore, she was given gentamicin and premedicated with Benadryl.? She seems to have tole rated this well. Hospital course the patient was evaluated for catheter associated UTI. Catheter was removed and the patient was started on IV gentamicin for reported multiple anaphylaxis reaction to antibiotics. Urine culture grew pansensitive E coli and Klebsiella resistant to ampicillin. Evaluated by infectious disease specialist who recommended treatment with IV tobramycin for total of 10 days. The patient received total of 4 days of effective antibiotic and will be discharged home to finish 6 more days of tobramycin. She was advised to follow-up with an cabinet abrasive sandblaster to confirm Her allergies. Patient reported weight loss with moderate protein calorie malnutrition. She was last for follow-up as outpatient with her primary and Oncology as she of concerns over recurrence of malignancy versus short bowel syndrome. Ensure was used 3 times a day at time admission. Patient reported that she had to stop Lovenox due to injection side hematomas. She was started on Eliquis for reported history of atrial fibrillation. Continue tobramycin for 5 more days at home To follow-up with resource protection specialist to confirm the allergies you have Start Eliquis for history of atrial fibrillation Time Spent with Patient Time attestation: Total time spent providing and/or coordinating discharge services: Discharge coordination time: Greater than 30 minutes Quality: Safe Use of Opioids Does Pt have an Active Cancer Diagnosis on the Problem List?: No Quality: Stroke Does the patient have a stroke diagnosis?: No Physical Exam Vital Signs: Vital Signs: Last Vital Signs Temp 97 F 01/11/22 06:52 Pulse 81 01/11/22 06:52 Resp 18 01/11/22 07:46 BP 98/73 01/11/22 06:52 Pulse Ox 97 01/11/22 06:52 BMI result Body Mass Index 21.3 Const: Other: Constitutional : Alert, oriented, not in distress Neck : Normal inspection, Supple Cardiovascular : RRR, no JVP, no lower extremity edema Respiratory : fair bilateral air entry, no crackles, wheezes or rhonchi Gastrointestinal: soft, lax, Normal bowel sounds, Non tender , ostomy bag in place filled with brownish liquid Skin : Warm, Dry Neurological : Alert & oriented x3, No focal deficit , CN 2-12 within normal DS: Data Data Completed and Pending Labs on day of discharge: Laboratory Results - last 24 hr 01/11/22 01/11/22 01/11/22 01:44 05:07 05:07 WBC 6.6 RBC 3.88 L Hgb 11.7 L Hct 35.6 L MCV 91.8 MCH 30.2 MCHC 32.9 RDW 12.9 Plt Count 317 MPV 9.1 L Absolute Nucleated RBC 0.000 Nucleated RBC % (auto) 0.0 Sodium 137 Potassium 4.1 Chloride 103 Carbon Dioxide 24 Anion Gap 14 BUN 27 H Creatinine 0.62 Estim Creat Clear Calc 68.3 Estimated GFR > 60 Fasting Glucose 89 Calcium 9.4 Random Tobramycin 1.1 Discharge Plan Discharge Patient Disposition: Home Health Service Discharge Diagnosis: Urinary tract infection Referrals: [facility] [Other] - 1 Week ([facility] will deliver iv benadryl and iv tobramycin abx and all related supplies and flushes for patient. the [facility] nurse will come out for the administration of the iv benadryl and the iv tobramycin and any labs and dressing changes . patient has spoken with [facility] and is aware of this dr randee ruffin i,d, follow up jan 23 2022 at 3pm here at the [place] [id number] [facility] [address] if you need to change this appointnment or cancell please call [phone]) Bob Camp MD [Primary Care Provider] - 1 Week Discharge Medications: New tobramycin sulfate 40 mg/mL solution 240 mg IV Q24H 6 Days Qty: 36 0RF Eliquis 5 mg Tablet 5 mg PO BID Qty: 60 0RF oxycodone 5 mg Tablet 5 mg PO Q6H PRN (Reason: Pain, Severe (Pain Scale 7-10)) Qty: 12 0RF diphenhydramine-0.9 % sod.chlr 25 mg/50 mL piggyback 25 mg IV .Q24 5 Days 0RF Rx Instructions: may repeat once in 30-60 minutes if not effective Continued aspirin [Adult Low Dose Aspirin] 81 mg tablet,delayed release (DR/EC) 81 mg PO DAILY 0RF ropinirole 1 mg tablet 1 mg PO DAILY Qty: 30 3RF albuterol sulfate 90 mcg/actuation HFA aerosol inhaler 2 puff inhalation Q6H PRN (Reason: for muscle spasm) Qty: 18 1RF loratadine 10 mg tablet 10 mg PO DAILY Qty: 90 1RF levothyroxine 50 mcg tablet 50 mcg PO DAILY Qty: 30 2RF budesonide-formoterol 80-4.5 mcg/actuation HFA aerosol inhaler 2 puff inhalation BID Qty: 10.2 2RF loperamide 2 mg capsule 2 mg PO NEEDED PRN (Reason: Diarrhea) 0RF trazodone 50 mg tablet 1 tab PO BEDTIME 0RF ondansetron HCl 4 mg tablet 1 tab PO Q8H PRN (Reason: Nausea And Vomiting) 0RF thiamine HCl (vitamin B1) [Vitamin B-1] 100 mg tablet 1 tab PO DAILY 0RF amitriptyline 25 mg tablet 1 tab PO BEDTIME 0RF magnesium oxide 400 mg (241.3 mg magnesium) tablet 1 tab PO BID 0RF diphenhydramine HCl [Banophen] 25 mg Tablet 50 mg PO BEDTIME 0RF folic acid 1 mg tablet 1 tab PO DAILY 0RF oxybutynin chloride 5 mg tablet 1 tab PO BID 0RF cholestyramine (with sugar) 4 gram powder in packet 1 packet PO BID 0RF potassium chloride 10 mEq tablet,ER particles/crystals 1 tab PO BID 0RF Certavite-Antioxidant 18-400 mg-mcg tablet 1 tab PO DAILY 0RF simvastatin 40 mg tablet 40 mg PO BEDTIME 0RF duloxetine 60 mg capsule,delayed release(DR/EC) 60 mg PO DAILY Qty: 30 0RF dicyclomine 20 mg tablet 20 mg PO BID Qty: 60 0RF digoxin 125 mcg (0.125 mg) tablet 125 mcg PO DAILY Qty: 90 0RF Hold Instructions: Doctor's Order levetiracetam 750 mg tablet 750 mg PO BID 30 Days Qty: 60 8RF pantoprazole 40 mg tablet,delayed release (DR/EC) 40 mg PO DAILY 0RF Discharge Orders: Discharge Order (Routine); Ordered 01/12/22 Ordered By: Azul Frances Diet: advance to usual diet Activity on Discharge: As tolerated Stand Alone Forms: Patient Portal Discharge page Care Plan Goals: Read below Health Concerns: Read below Plan of Treatment: Read below Assessment: You were admitted for evaluation of urinary tract infection. Reported multiple anaphylaxis reaction to antibiotics as your urine culture grew 2 sensitive bacteria. Evaluated by infectious disease specialist who recommended treatment with IV to problem I sent for total of 10 days. You received antibiotics for 4 days in the hospital. Continue tobramycin for 5 more days at home To follow-up with resource protection specialist to confirm the allergies you have Start Eliquis for history of atrial fibrillation
--- NOTE | 2022-01-11 11:40 | MHC.CLN ---
F/U APPEARS TO BE EATING WELL, WITH MOST MEALS 50-100%. DIET=GLUTEN FREE, LOW FIBER, WITH ENSURE TID. SUPPLEMENT PROVIDES ADDITIONAL 1050 KCAL, 60 G PROTEIN. FOLLOW FOR INTAKE AND WEIGHT.
[2022-01-11] MEDS: diphenhydrAMINE HCL 50 MG/ML VIAL 25 MG IVPUSH (14:01)
--- NOTE | 2022-01-11 14:10 | P.PNIM_ITS ---
Subjective Subjective Date of Service: 01/11/22 Interval History: the patient was seen and evaluated this morning Laying in bed, feels comfortable overall with complaint of generalized pain reported increase amount of liquids in her ostomy bag No reported other overnight events. Systemic review: No fever, chills or weakness No chest pain, palpitation No shortness of breath or coughing No abdominal pain, nausea or vomiting No urinary symptoms No any rash or wounds Physical Exam Vital Signs: Vital Signs: Last Vital Signs Temp 97.6 F 01/11/22 12:00 Pulse 62 01/11/22 12:00 Resp 18 01/11/22 07:46 BP 98/73 01/11/22 06:52 Pulse Ox 97 01/11/22 06:52 BMI result Body Mass Index 21.3 Const: Other: Constitutional : Alert, oriented, not in distress Neck : Normal inspection, Supple Cardiovascular : RRR, no JVP, no lower extremity edema Respiratory : fair bilateral air entry, no crackles, wheezes or rhonchi Gastrointestinal: soft, lax, Normal bowel sounds, Non tender , ostomy bag in place filled with brownish liquid Skin : Warm, Dry Neurological : Alert & oriented x3, No focal deficit , CN 2-12 within normal Objective Data Active Medications Acetaminophen (Acetaminophen 325 Mg Tablet) 650 mg PO Q6H PRN PRN Reason: Pain, Mild (Pain Scale 1-3) Albuterol Sulfate (Albuterol Sulfate 90 Mcg 8 Gm Inhaler) 2 puff INHALE Q6H PRN PRN Reason: for muscle spasm Amitriptyline HCl (Amitriptyline Hcl 25 Mg Tablet) 25 mg PO BEDTIME [facility] Last Admin: 01/10/22 20:09 Dose: 25 mg Documented by: JESSE Apixaban (Apixaban 5 Mg Tablet) 5 mg PO BID [facility] Last Admin: 01/11/22 08:13 Dose: 5 mg Documented by: DEBBIE Aspirin (Aspirin Enteric Coated 81 Mg Tablet.) 81 mg PO DAILY [facility] Last Admin: 01/11/22 08:11 Dose: 81 mg Documented by: DEBBIE Atorvastatin Calcium (Atorvastatin Calcium 20 Mg Tablet) 20 mg PO BEDTIME [facility] Last Admin: 01/10/22 20:08 Dose: 20 mg Documented by: JESSE Cholestyramine Resin (Cholestyramine (With Sugar) 4 Gm Powd.Pack) 4 gm PO BID [facility] Last Admin: 01/11/22 08:15 Dose: Not Given Documented by: DEBBIE Non-Admin Reason: Patient Refused Dicyclomine HCl (Dicyclomine Hcl 10 Mg Capsule) 20 mg PO BID [facility] Last Admin: 01/11/22 08:11 Dose: 20 mg Documented by: DEBBIE Digoxin (Digoxin 0.125 Mg Tablet) 0.125 mg PO DAILY [facility] Last Admin: 01/11/22 08:13 Dose: 0.125 mg Documented by: DEBBIE Comments: AP 80 regular Diphenhydramine HCl (Diphenhydramine Hcl 25 Mg Tablet) 50 mg PO BEDTIME [facility] Last Admin: 01/10/22 20:10 Dose: 50 mg Documented by: JESSE Diphenhydramine HCl (Diphenhydramine Hcl 50 Mg/Ml Vial) 25 mg IVPUSH Q24H PRN PRN Reason: WITH TOBRAMYCIN Last Admin: 01/11/22 14:01 Dose: 25 mg Documented by: BEVERLY Duloxetine HCl (Duloxetine Hcl 60 Mg Capsule.Dr) 60 mg PO DAILY [facility] Last Admin: 01/11/22 08:10 Dose: 60 mg Documented by: DEBBIE Fluticasone/Vilanterol (Fluticasone/Vilanterol 100/25 Blst.W.Dev) 1 puff INHALE RDAILY [facility] Last Admin: 01/11/22 07:45 Dose: 1 puff Documented by: NAOMY Folic Acid (Folic Acid 1 Mg Tablet) 1 mg PO DAILY [facility] Last Admin: 01/11/22 08:10 Dose: 1 mg Documented by: DEBBIE Tobramycin Sulfate 240 mg/ (Sodium Chloride) 106 mls @ 212 mls/hr IV Q24H [facility] Last Admin: 01/11/22 14:01 Dose: 212 mls/hr Documented by: BEVERLY Ibuprofen (Ibuprofen 400 Mg Tablet) 400 mg PO Q6H PRN PRN Reason: moderate pain Levetiracetam (Levetiracetam 250 Mg Tablet) 750 mg PO BID [facility] Last Admin: 01/11/22 08:11 Dose: 750 mg Documented by: DEBBIE Levothyroxine Sodium (Levothyroxine Sodium 50 Mcg Tablet) 50 mcg PO DAILY@0600 [facility] Last Admin: 01/11/22 05:10 Dose: 50 mcg Documented by: RAMU Loperamide HCl (Loperamide Hcl 2 Mg Capsule) 2 mg PO 8XD PRN PRN Reason: Loose Stool Loratadine (Loratadine 10 Mg Tablet) 10 mg PO DAILY [facility] Last Admin: 01/11/22 08:13 Dose: 10 mg Documented by: DEBBIE Magnesium Oxide (Magnesium Oxide 400 Mg Tablet) 400 mg PO BID [facility] Last Admin: 01/11/22 08:11 Dose: 400 mg Documented by: DEBBIE Multivitamins/Vitamin C (Multivitamin Tablet) 1 tab PO DAILY [facility] Last Admin: 01/11/22 08:10 Dose: 1 tab Documented by: DEBBIE Omeprazole (Omeprazole 20 Mg Capsule.Dr) 20 mg PO DAILY@0630 [facility] Last Admin: 01/11/22 05:10 Dose: 20 mg Documented by: RAMU Oxybutynin Chloride (Oxybutynin Chloride Er 5 Mg Tab.Er.24) 10 mg PO DAILY [facility] Last Admin: 01/11/22 08:11 Dose: 10 mg Documented by: DEBBIE Oxycodone HCl (Oxycodone Hcl Immed Release 5 Mg Tablet) 5 mg PO Q6H PRN PRN Reason: Pain, Severe (Pain Scale 7-10) Last Admin: 01/11/22 11:03 Dose: 5 mg Documented by: DEBBIE Pharmacy Consult (Consult Rx Perform Med Rec) 1 each MISCELLANE ONCE PRN PRN Reason: Consult order Potassium Chloride (Potassium Chloride Er 10 Meq Capsule.Er) 10 meq PO BID [facility] Last Admin: 01/11/22 08:12 Dose: 10 meq Documented by: DEBBIE Ropinirole HCl (Ropinirole Hcl 1 Mg Tablet) 1 mg PO BEDTIME [facility] Last Admin: 01/10/22 20:06 Dose: 1 mg Documented by: JESSE Sodium Chloride (0.9 % Sodium Chloride Flush 3 Ml Syringe) 3 ml IVFLUSH QSHIFT [facility] Last Admin: 01/11/22 08:15 Dose: 3 ml Documented by: DEBBIE Thiamine HCl (Thiamine Hcl 100 Mg Tablet) 100 mg PO DAILY [facility] Last Admin: 01/11/22 08:13 Dose: 100 mg Documented by: DEBBIE Trazodone HCl (Trazodone Hcl 50 Mg Tablet) 50 mg PO BEDTIME [facility] Last Admin: 01/10/22 20:08 Dose: 50 mg Documented by: JESSE Labs CBC & Chem 7: 01/11/22 05:07 01/11/22 05:07 Labs: Laboratory Results - last 24 hr 01/11/22 01/11/22 01/11/22 01:44 05:07 05:07 MCV 91.8 MCH 30.2 MCHC 32.9 RDW 12.9 Plt Count 317 MPV 9.1 L Absolute Nucleated RBC 0.000 Nucleated RBC % (auto) 0.0 Anion Gap 14 Estim Creat Clear Calc 68.3 Estimated GFR > 60 Fasting Glucose 89 Calcium 9.4 Random Tobramycin 1.1 Assessment and Plan (1) Recurrent UTI: Status: Acute (2) Allergy to multiple drugs: Status: Acute Plan 66-year-old female presented with? suprapubic pain, and weight loss ?catheter associated urinary tract infection ?no sepsis ?reported multiple anaphylactic antibiotic allergies ID appreciated , plan for 10 days tobramycin, currently day 4/10 ?urine grew pansensitive ecoli and klebsiella resistent to ampicillin with inte rmediate activity to nitrofurantoin should follow up outpatient with monotype machinist to confirm reported anaphylaxis ?reported weight loss,? moderate protein calorie malnutrition ?concern for recurrence of malignancy versus short bowel syndrome ?outpatient follow-up recommended ?monitor output and electrolytes ?low gluten, low-fiber diet, Ensure t.i.d. 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 Quality Stroke Does the patient have a stroke diagnosis?: No VTE Prior VTE?: Yes VTE Risk Level:: Medical - moderate - high VTE Device Contraindication: Treatment Not Indicated VTE Drug Contraindication: N/A - Med Ordered
--- NOTE | 2022-01-11 16:10 | MHC.CM.PN ---
NURSE JEWEL BEARING [facility] CANCELLED OUT AT THE LAST MINUTE, SECONDARY TO PATIENTS SENSITIITY ALLERGIES AND REQUIRING IV BENADRYL PRIOR TO HER IV TOBRAMYCIN SH EIS ON THIS ABX FOR ONLY FIVE MORE DAYS VIA MIDLINE , DESPIET SEVERAL CALLS TO DECEMBER IN [facility] THEY DECLINE HER ACCEPTANCE BACK TO [facility] , PATIENT EVEN CALLED WITH NO SUCCESS SEVERAL OTHER [facility] AGENCIES REFERRALS WERE MADE
[2022-01-11 18:45] LABS: CDiff Gene PCR NEGATIVE (Negative)
[2022-01-11] MEDS: diphenhydrAMINE HCL 25 MG TABLET 50 MG PO (20:26)
[2022-01-11] MEDS: rOPINIRole HCL 1 MG TABLET PO (20:26)
[2022-01-11] MEDS: Atorvastatin Calcium 20 MG TABLET PO (20:27)
[2022-01-11] MEDS: Amitriptyline HCl 25 MG TABLET PO (20:27)
[2022-01-11] MEDS: traZODone HCL 50 MG TABLET PO (20:27)
[2022-01-12 04:00] VITALS: BP 108/62; PULSE 91; RESP 18; TEMP 36.2; O2SAT 96
[2022-01-12] MEDS: Omeprazole 20 MG CAPSULE.DR PO (05:28)
[2022-01-12] MEDS: oxyCODONE HCl Immed Release 5 MG TABLET PO ×2 (05:28→12:12)
[2022-01-12] MEDS: Levothyroxine Sodium 50 MCG TABLET PO (05:28)
[2022-01-12 06:46] LABS: Anion Gap 14 (12-20); Blood Urea Nitrogen 27 mg/dL (9-16); Calcium 9.2 mg/dL (8.4-10.2); Carbon Dioxide 21 mmol/L (22-29); Chloride 106 mmol/L (96-108); Creatinine Clr Calc Pharmacy 68.3; Estimated Glomerular Filt Rate > 60; Glucose Random 83 mg/dL (60-115); Sodium 137 mmol/L (135-145)
[2022-01-12 07:35] VITALS: BP 113/63; PULSE 85; RESP 18; TEMP 37.3; O2SAT 98
[2022-01-12 07:47] VITALS: PULSE 85; RESP 18; O2SAT 98
[2022-01-12] MEDS: Fluticasone/Vilanterol 100/25 BLST.W.DEV 1 PUFF INHALE (07:47)
[2022-01-12] MEDS: levETIRAcetam 250 MG TABLET 750 MG PO (07:52)
[2022-01-12] MEDS: Aspirin Enteric Coated 81 MG TABLET.DR PO (07:52)
[2022-01-12] MEDS: Dicyclomine HCl 10 MG CAPSULE 20 MG PO (07:53)
[2022-01-12] MEDS: Thiamine HCL 100 MG TABLET PO (07:53)
[2022-01-12] MEDS: Digoxin 0.125 MG TABLET PO (07:53)
[2022-01-12] MEDS: Multivitamin TABLET 1 TAB PO (07:53)
[2022-01-12] MEDS: DULoxetine HCl 60 MG CAPSULE.DR PO (07:54)
[2022-01-12] MEDS: Apixaban 5 MG TABLET PO (07:54)
[2022-01-12] MEDS: Folic Acid 1 MG TABLET PO (07:55)
[2022-01-12] MEDS: 0.9 % Sodium Chloride Flush 3 ML SYRINGE IVFLUSH (07:55)
[2022-01-12] MEDS: Magnesium Oxide 400 MG TABLET PO (07:56)
[2022-01-12] MEDS: Loratadine 10 MG TABLET PO (07:56)
--- NOTE | 2022-01-12 09:41 | MHC.CM.PN ---
PER CONVERSATION WITH [facility]IA[facility], DECEMBER ([phone]), PATIENT WAS ACTIVE TWICE A DAY FOR MEDICATION MANAGEMENT. DECEMBER DOES STATE THAT THE LOCK BOX BELONGS TO THE PATIENT, AND IS NOT A DOCTOR- ORDERED BOX; THEREFORE, PATIENT CAN LOCK AND UNLOCK HER OWN MEDICATIONS. [facility] ALSO IS UNABLE TO ACCEPT PATIENT BACK, THEY ARE SHORT STAFFED. INFORMATION RELAYED TO PATIENT BY TWO CASE MANAGEMENT STAFF MEMBERS. PATIENT ALSO AWARE THAT [facility] WILL SUPPLY THE REMAINDER OF INFUSION AND LABS. PATIENT WILL NEED ASSIST WITH TRANSPORT HOME.
[2022-01-12] MEDS: diphenhydrAMINE HCL 50 MG/ML VIAL 25 MG IVPUSH (12:12)
--- NOTE | 2022-01-12 12:43 | MHC.CM.PN ---
discharge plan home with [facility] for iv [facility]x and iv benadryl before abx infusion, [facility] nurse will come for iv abx admiistratio through [facility] they will deliver the medicatios ad all related supplies toight trasportatio provided idfrmed to pickk up ew medicatio at her pharmacy ad new script for eliquis free 30 day coupon script e faxed to pharmacy
== END 2022-01-12 13:15 | disposition home health service (06) | DRG 699 ==
LOC: HO.ED 01-07 07:47 → HO.EDOVER 01-07 11:06 → HO.S3 01-07 11:53
PROVIDERS: Internal Medicine; Physician Assistant; Admitting Provider Internal Medicine; Emergency Provider Emergency Medicine; PCP Internal Medicine; Visit Provider Student in an Organized Health Care Education/Training Program
DX: T83.518A Infection and inflammatory reaction due to other urinary catheter, initial encounter (principal); N39.0 Urinary tract infection, site not specified; E44.0 Moderate protein-calorie malnutrition; Z16.11 Resistance to penicillins; I48.0 Paroxysmal atrial fibrillation; N31.9 Neuromuscular dysfunction of bladder, unspecified; Z68.21 Body mass index [BMI] 21.0-21.9, adult; B96.20 Unspecified Escherichia coli [E. coli] as the cause of diseases classified elsewhere; B96.1 Klebsiella pneumoniae [K. pneumoniae] as the cause of diseases classified elsewhere; Z86.718 Personal history of other venous thrombosis and embolism; Z86.711 Personal history of pulmonary embolism; Z91.013 Allergy to seafood; Z87.440 Personal history of urinary (tract) infections; Z88.0 Allergy status to penicillin; Z88.2 Allergy status to sulfonamides; Z79.01 Long term (current) use of 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; Z79.82 Long term (current) use of aspirin; Z85.038 Personal history of other malignant neoplasm of large intestine; Z87.892 Personal history of anaphylaxis; Z20.822 Contact with and (suspected) exposure to COVID-19; Z79.890 Hormone replacement therapy; Z79.899 Other long term (current) drug therapy
CPT/HCPCS: 36410; 36415; 74176; 80048; 80053; 80170; 80200; 81001; 83690; 85025; 85027; 87086; 87088; 87186; 87493; 87635; 96361; 96365; 96375; 96376; 99285; 99291; C1751; C1758; J1200; J1580; J1650; J2270; J2405; J3260; Q0163

== ENCOUNTER 2022-01-20 08:43 | Emergency (ER) | payer MEDICARE, MEDICAID, SELFPAY ==
[2022-01-20 09:15] VITALS: BP 138/60; PULSE 97; RESP 18; TEMP 36.6; O2SAT 99; BMI 20.7
--- NOTE | 2022-01-20 09:17 | ED_ITS ---
HPI - General Adult General Chief complaint: General Medical <Angela Dixon SAVANNA Giang - Last Filed: 01/20/22 16:59> Stated complaint: needs coloscopy bag broke <Angela Dixon SAVANNA Giang - Last Filed: 01/20/22 16:59> Time Seen by Provider: 01/20/22 08:46 <Angela Destinyjosé Giang CNP - Last Filed: 01/20/22 16:59> Source: patient <Angela Dixon SAVANNA Giang - Last Filed: 01/20/22 16:59> Mode of arrival: ambulatory <Angela Dixon SAVANNA Giang - Last Filed: 01/20/22 16:59> Limitations: no limitations <Angela Dixon SAVANNA Giang - Last Filed: 01/20/22 16:59> History of Present Illness HPI narrative: Patient presents to the emergency department requesting a new colostomy bag. She reports she was on her way to doctor's appointment at the [facility] this morning when her colostomy bag broken she did not have any additional supplies. She reports that she has had this colostomy for greater than 30 years secondary to colon cancer. She was on her way to receive an IV antibiotic infusion as she is currently being treated for urinary tract infection through, has a PICC line to the left upper extremity. She is reporting some abdominal pain just beneath the stoma site, that started this morning descried as aching. Denies nausea, vomiting, fevers, chills. Denies change in ostomy output. She does have history of abdominal pain for which she takes oxycodone as needed. 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 <Angela Crooksjosé Giang CNP - Last Filed: 01/20/22 16:59> Related Data Home medications: Home Medications Medication Instructions Recorded Confirmed aspirin 81 mg tablet,delayed 81 mg PO DAILY 01/28/21 01/07/22 release (Adult Low Dose Aspirin) pantoprazole 40 mg tablet,delayed 40 mg PO DAILY 12/22/21 01/07/22 release amitriptyline 25 mg tablet 1 tab PO BEDTIME 01/07/22 01/07/22 cholestyramine (with sugar) 4 gram 1 packet PO BID 01/07/22 01/07/22 powder for susp in a packet diphenhydramine HCl 25 mg tablet 50 mg PO BEDTIME 01/07/22 01/07/22 (Banophen) folic acid 1 mg tablet 1 tab PO DAILY 01/07/22 01/07/22 loperamide 2 mg capsule 2 mg PO NEEDED PRN 01/07/22 01/07/22 magnesium oxide 400 mg (241.3 mg 1 tab PO BID 01/07/22 01/07/22 magnesium) tablet multivitamin-ferrous 1 tab PO DAILY 01/07/22 01/07/22 fumarate-folic acid 18 mg-400 mcg tablet (Certavite-Antioxidant) ondansetron HCl 4 mg tablet 1 tab PO Q8H PRN 01/07/22 01/07/22 oxybutynin chloride 5 mg tablet 1 tab PO BID 01/07/22 01/07/22 potassium chloride 10 mEq 1 tab PO BID 01/07/22 01/07/22 tablet,extended release(part/cryst) simvastatin 40 mg tablet 40 mg PO BEDTIME 01/07/22 01/07/22 thiamine HCl (vitamin B1) 100 mg 1 tab PO DAILY 01/07/22 01/07/22 tablet (Vitamin B-1) trazodone 50 mg tablet 1 tab PO BEDTIME 01/07/22 01/07/22 Previous Rx's Medication Instructions Recorded dicyclomine 20 mg tablet 20 mg PO BID #60 tab 08/11/21 digoxin 125 mcg (0.125 mg) tablet 125 mcg PO DAILY #90 tab 08/11/21 levetiracetam 750 mg tablet 750 mg PO BID 30 Days #60 tab 08/11/21 ropinirole 1 mg tablet 1 mg PO DAILY #30 tab 10/04/21 duloxetine 60 mg capsule,delayed 60 mg PO DAILY #30 cap 12/09/21 release albuterol sulfate 90 mcg/actuation 2 puff INHALATION Q6H PRN #18 g 01/02/22 aerosol inhaler budesonide-formoterol HFA 80 2 puff INHALATION BID #10.2 g 01/03/22 mcg-4.5 mcg/actuation aerosol inhaler levothyroxine 50 mcg tablet 50 mcg PO DAILY #30 tab 01/03/22 loratadine 10 mg tablet 10 mg PO DAILY #90 tab 01/03/22 apixaban 5 mg tablet (Eliquis) 5 mg PO BID #60 tab 01/11/22 tobramycin sulfate 40 mg/mL 240 mg (6 mL) IV Q24H 6 Days #36 ml 01/11/22 injection solution diphenhydramine HCl 25 mg/50 mL in 25 mg (50 mL) IV .Q24 5 Days ml 01/12/22 0.9 % sodium chloride IV piggyback oxycodone 5 mg tablet 5 mg PO Q6H PRN #12 tab 01/12/22 <Angela Giang [employer] D[employer] - Last Filed: 01/20/22 16:59> Allergies/adverse reactions: Allergies Allergy/AdvReac Type Severity Reaction Status Date / Time erythromycin base Allergy Severe Anaphylaxis Verified 01/20/22 14:33 [ERYTHROMYCIN BASE] levofloxacin [From Levaquin] Allergy Severe Anaphylaxis Verified 01/20/22 14:33 Penicillins [PCN] Allergy Severe Anaphylaxis Verified 01/20/22 14:33 SEAFOOD Allergy Severe Anaphylaxis Verified 01/20/22 14:33 Sulfa (Sulfonamide Allergy Severe Anaphylaxis, Verified 01/20/22 14:33 Antibiotics) vomiting [SULFA (SULFONAMIDE ANTIBIOTICS)] Tetracyclines Allergy Severe Anaphylaxis Verified 01/20/22 14:33 divalproex sodium [Depakote] Allergy Unknown altered Verified 01/20/22 14:33 mental status gluten [GLUTEN] Allergy Unknown BLOATING,RA Verified 01/20/22 14:33 SH rice Allergy Unknown Verified 01/20/22 14:33 <Angela Giang [facility] - Last Filed: 01/20/22 16:59> Review of Systems Review of Systems: Constitutional : No Weight loss, No Fever, No Chills ENT/Mouth :? No sore throat, No Rhinorrhea Eyes: No Swelling, No Redness Cardiovascular : No Chest Pain, No SOB, No Edema Respiratory : No Cough, No Sputum, No Wheezing Gastrointestinal : No Nausea, no Vomiting, positive abdominal pain, Positive colostomy No Hematochezia, No Melena Genitourinary : No Dysuria, No Urinary Frequency, No Hematuria, No Urgency? Musculoskeletal : No joint pain, No Myalgias, No Joint Swelling Skin : No Skin Lesions, No rash Neuro : No Weakness, No Numbness, No Dizziness, No Headache Psych : No Anxiety/Panic, No Depression Heme/Lymph: No Bruising, No Lymphadenopathy Endocrine : No Polyuria, No Polydipsia <Angela Giang CNP - Last Filed: 01/20/22 16:59> Yes all other systems are reviewed and are negative <Angela Giang CNP - Last Filed: 01/20/22 16:59> [facility] Past Medical History Attestation statement: The following information was validated with the patient. <Angela Giang CNP - Last Filed: 01/20/22 16:59> Source: old records reviewed <Angela Giang CNP - Last Filed: 01/20/22 16:59> Medical History: Medical History Allergy to multiple drugs Colon cancer Conversion disorder COPD (chronic obstructive pulmonary disease) Deep vein thrombosis Paroxysmal A-fib Pseudoseizure <Angela Giang CNP - Last Filed: 01/20/22 16:59> Surgical History: Surgical History History of bladder surgery History of colectomy History of colonoscopy History of colostomy reversal History of facial surgery History of partial gastrectomy History of partial surgical removal of colon History of sinus surgery S/P IVC filter <Angela Giang CNP - Last Filed: 01/20/22 16:59> Family History Family History: Family History Mother CAD (coronary artery disease) Other Mental health disorder <Angela Giang CNP - Last Filed: 01/20/22 16:59> Social History Social History: Social History Household Members: Other Household Members Other:: 3 roommates Housing: House Do you presently have visiting nurse or other home services: Yes Alcohol intake: never Patient Tobacco Use Status: Never used Tobacco e-Cigarette/Vaping Use: Never Used Second Hand Smoke Exposure: Yes service: No Current occupational status: disabled Cognitive needs: Yes (cane) Hearing needs: No Vision needs: Yes (Glasses) <Angela Giang CNP - Last Filed: 01/20/22 16:59> Physical Exam ED Vital Signs: Vital Signs - 24 hr 01/20/22 09:15 Temperature 97.8 F Pulse Rate 97 Respiratory Rate 18 Blood Pressure 138/60 Pulse Oximetry 99 BMI result Body Mass Index 20.7 Vital signs have been reviewed as normal and appeared to be correct. Blood pressure normal.? Heart rate normal.? Respiration rate normal. Temperature normal.? Oxygen saturation normal. <Angela Giang CNP - Last Filed: 01/20/22 16:59> Appearance: Alert.?Oriented to person, place and time. No acute distress.?Normal affect. Eyes: Pupils equal, round and reactive to light.? ENT: Pharynx normal.?? Neck: Normal inspection.? CVS: Heart sounds normal. Normal heart rate and rhythm.? Pulses normal.?? Respiratory: No respiratory distress.? Lung sounds clear to auscultation bilaterally?? Abdomen: Soft and non-tender. Normoactive bowel sounds. No pulsatile mass.?? Skin: Skin warm and dry.? Normal skin color.? Extremities: No lower extremity edema.? Neuro: Moves all extremities spontaneously. Sensation intact bilaterally. No focal neuro deficits. Ambulates with normal steady gait. <Angela Giang CNP - Last Filed: 01/20/22 16:59> Course Course Course Narrative: Patient is a 66-year-old female with a history of colon cancer, COPD, atrial fibrillation and DVT on long-term anticoagulation. She presented to the emergency department requesting a new colostomy bag as hers broke on the way to an appointment today and she did not have supplies with her. She additionally expresses report abdominal pain directly beneath her stoma site. 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 Stoma is red and moist. There are some mild excoriation of the skin surrounding the stoma. Active output. On 01/06 she underwent abdomen and pelvis CT which revealed postsurgical changes and no evidence for obstruction. History and physical exam not consistent with GI perforation, GI bleed, AAA, aortic dissection, DKA. Not consistent with strangulated hernia, bowel obstruction, pulmonary embolism, mesenteric ischemia, myocardial infarction. Will obtain basic labs including CBC and CMP this time. Currently being treated for urinary tract infection with tobramycin IV, therefore will defer urinalysis at this time. <Angela Giang CNP - Last Filed: 01/20/22 16:59> Reevaluation(s) Reevaluation #1: CBC reveals a normocytic anemia consistent with prior labs, CMP is overall unremarkable. Pain has resolved since arrival to the ED. colostomy bag was replaced. At this time patient is stable and discussed plan for care for discharge, outpatient follow-up with her providers as scheduled, discussed reasons to return back to the emergency department, all questions were answered. <Angela Giang CNP - Last Filed: 01/20/22 16:59> Medical Decision Making Medical Records Medical records reviewed: Yes I reviewed the patient's medical records. <Angela Giang CNP - Last Filed: 01/20/22 16:59> Lab Data Lab results reviewed: Yes I reviewed the patient's lab results. <nAgela Giang CNP - Last Filed: 01/20/22 16:59> Result diagrams: : 01/20/22 10:44 01/20/22 10:44 <Angela Giang CNP - Last Filed: 01/20/22 16:59> Labs: Lab Results 01/20/22 01/20/22 Range/Units 10:44 10:44 WBC 4.2 L (4.8-10.8) X10*3/uL RBC 3.60 L (4.20-5.50) X10*6/uL Hgb 10.9 L (12.0-16.0) g/dl Hct 33.1 L (37.0-47.0) % MCV 91.9 (80.0-98.0) fL MCH 30.3 (27.0-33.0) pg MCHC 32.9 (31.0-35.0) g/dl RDW 13.2 (11.0-16.0) % Plt Count 265 (160-400) X10*3/uL MPV 9.1 L (9.4-12.3) fL Immature Gran % (Auto) 0.2 (0.0-0.4) % Neut % (Auto) 59.9 (45-73) % Lymph % (Auto) 30.2 (20-40) % Troup % (Auto) 7.1 (2-11) % Eos % (Auto) 1.9 (0-4) % Baso % (Auto) 0.7 (0-2) % Lymph # (Auto) 1.3 (1.2-4.9) X10*3/uL Troup # (Auto) 0.3 (0.1-1.2) X10*3/uL Eos # (Auto) 0.1 (0.0-0.4) X10*3/uL Baso # (Auto) 0.0 (0.0-0.2) X10*3/uL Abs Immat Gran (auto) 0.01 (0.00-0.03) X10*3/uL Absolute Neuts (auto) 2.5 (2.0-8.3) x10*3/uL Absolute Nucleated RBC 0.000 (0.0-0.012) X10*3/uL Nucleated RBC % (auto) 0.0 (0.0-0.2) /100WBC Sodium 141 (135-145) mmol/L Potassium 3.6 (3.3-5.1) mmol/L Chloride 107 (96-108) mmol/L Carbon Dioxide 28 (22-29) mmol/L Anion Gap 10 L (12-20) BUN 11 D (9-16) mg/dL Creatinine 0.63 (0.5-1.4) mg/dL Estim Creat Clear Calc 67.2 Estimated GFR > 60 Random Glucose 85 (60-115) mg/dL Calcium 9.4 (8.4-10.2) mg/dL Total Bilirubin 0.7 (0.0-1.0) mg/dL AST 18 (5-31) U/L ALT 20 (0-31) U/L Alkaline Phosphatase 64 (39-117) U/L Total Protein 6.3 L (6.5-8.0) g/dL Albumin 3.8 (3.5-5.0) g/dL <Angela Giang CNP - Last Filed: 01/20/22 16:59> Discharge Plan Discharge Clinical Impression: Colostomy care <Angela Giang CNP - Last Filed: 01/20/22 16:59> Patient Disposition: Home, Self-Care <Angela Giang CNP - Last Filed: 01/20/22 16:59> Instructions: Colostomy Care (ED) <Angela Giang CNP - Last Filed: 01/20/22 16:59> Additional Instructions: Please follow-up with all of your doctors as scheduled. Return to the emergency department with any new symptoms or concerns as needed. <Angela Giang CNP - Last Filed: 01/20/22 16:59> Prescriptions: No Action aspirin [Adult Low Dose Aspirin] 81 mg tablet,delayed release (DR/EC) 81 mg PO DAILY 0RF ropinirole 1 mg tablet 1 mg PO DAILY Qty: 30 3RF albuterol sulfate 90 mcg/actuation HFA aerosol inhaler 2 puff inhalation Q6H PRN (Reason: for muscle spasm) Qty: 18 1RF loratadine 10 mg tablet 10 mg PO DAILY Qty: 90 1RF levothyroxine 50 mcg tablet 50 mcg PO DAILY Qty: 30 2RF budesonide-formoterol 80-4.5 mcg/actuation HFA aerosol inhaler 2 puff inhalation BID Qty: 10.2 2RF loperamide 2 mg capsule 2 mg PO NEEDED PRN (Reason: Diarrhea) 0RF trazodone 50 mg tablet 1 tab PO BEDTIME 0RF ondansetron HCl 4 mg tablet 1 tab PO Q8H PRN (Reason: Nausea And Vomiting) 0RF thiamine HCl (vitamin B1) [Vitamin B-1] 100 mg tablet 1 tab PO DAILY 0RF amitriptyline 25 mg tablet 1 tab PO BEDTIME 0RF magnesium oxide 400 mg (241.3 mg magnesium) tablet 1 tab PO BID 0RF diphenhydramine HCl [Banophen] 25 mg Tablet 50 mg PO BEDTIME 0RF folic acid 1 mg tablet 1 tab PO DAILY 0RF oxybutynin chloride 5 mg tablet 1 tab PO BID 0RF cholestyramine (with sugar) 4 gram powder in packet 1 packet PO BID 0RF potassium chloride 10 mEq tablet,ER particles/crystals 1 tab PO BID 0RF Certavite-Antioxidant 18-400 mg-mcg tablet 1 tab PO DAILY 0RF simvastatin 40 mg tablet 40 mg PO BEDTIME 0RF tobramycin sulfate 40 mg/mL solution 240 mg IV Q24H 6 Days Qty: 36 0RF Eliquis 5 mg Tablet 5 mg PO BID Qty: 60 0RF oxycodone 5 mg Tablet 5 mg PO Q6H PRN (Reason: Pain, Severe (Pain Scale 7-10)) Qty: 12 0RF diphenhydramine-0.9 % sod.chlr 25 mg/50 mL piggyback 25 mg IV .Q24 5 Days 0RF Rx Instructions: may repeat once in 30-60 minutes if not effective duloxetine 60 mg capsule,delayed release(DR/EC) 60 mg PO DAILY Qty: 30 0RF dicyclomine 20 mg tablet 20 mg PO BID Qty: 60 0RF digoxin 125 mcg (0.125 mg) tablet 125 mcg PO DAILY Qty: 90 0RF Hold Instructions: Doctor's Order levetiracetam 750 mg tablet 750 mg PO BID 30 Days Qty: 60 8RF pantoprazole 40 mg tablet,delayed release (DR/EC) 40 mg PO DAILY 0RF <Angela Giang CNP - Last Filed: 01/20/22 16:59> Interventions: ED Discharge Assessment Last Done: 01/20/22 12:05 <Angela Giang CNP - Last Filed: 01/20/22 16:59> Discharge Date/Time: 01/20/22 12:06 <Angela Giang CNP - Last Filed: 01/20/22 16:59>
[2022-01-20] MEDS: Heparin Sodium,Porcine Flush 50 UNITS, 0.9 % Sodium Chloride Flush 5 ML IVFLUSH (10:45)
[2022-01-20 10:47] LABS: MANUAL DIFF FLAG NO
[2022-01-20 10:55] LABS: Basophils Percent Auto 0.7 % (0-2); Eosinophils Absolute Auto 0.1 X10*3/uL (0.0-0.4); Eosinophils Percent Auto 1.9 % (0-4); Hematocrit 33.1 % (37.0-47.0); Hemoglobin 10.9 g/dl (12.0-16.0); Imm Gran Abs Auto 0.01 X10*3/uL (0.00-0.03); Imm Gran Pct Auto 0.2 % (0.0-0.4); Lymphocytes Absolute Auto 1.3 X10*3/uL (1.2-4.9); Lymphocytes Percent Auto 30.2 % (20-40); Mean Corpuscular HGB Conc 32.9 g/dl (31.0-35.0); Mean Corpuscular Hemoglobin 30.3 pg (27.0-33.0); Mean Corpuscular Volume 91.9 fL (80.0-98.0); Mean Platelet Volume 9.1 fL (9.4-12.3); Monocytes Absolute Auto 0.3 X10*3/uL (0.1-1.2); Monocytes Percent Auto 7.1 % (2-11); Neutrophils Absolute Auto 2.5 x10*3/uL (2.0-8.3); Neutrophils Percent Auto 59.9 % (45-73); Platelet Count 265 X10*3/uL (160-400); Red Cell Distribution Width 13.2 % (11.0-16.0); White Blood Count 4.2 X10*3/uL (4.8-10.8)
[2022-01-20 11:06] LABS: Alanine Aminotransferase 20 U/L (0-31); Albumin Level 3.8 g/dL (3.5-5.0); Alkaline Phosphatase 64 U/L (39-117); Anion Gap 10 (12-20); Aspartate Amino Transferase 18 U/L (5-31); Bilirubin Total 0.7 mg/dL (0.0-1.0); Blood Urea Nitrogen 11 mg/dL (9-16); Calcium 9.4 mg/dL (8.4-10.2); Carbon Dioxide 28 mmol/L (22-29); Chloride 107 mmol/L (96-108); Creatinine Clr Calc Pharmacy 67.2; Estimated Glomerular Filt Rate > 60; Glucose Random 85 mg/dL (60-115); Potassium 3.6 mmol/L (3.3-5.1); Sodium 141 mmol/L (135-145); Total Protein 6.3 g/dL (6.5-8.0)
== END 2022-01-20 12:06 | disposition home or self-care (01) ==
PROVIDERS: Nurse Practitioner Family; Emergency Provider Emergency Medicine; PCP Internal Medicine
DX: K94.00 Colostomy complication, unspecified (principal); Z79.899 Other long term (current) drug therapy; Z79.82 Long term (current) use of aspirin
CPT/HCPCS: 36415; 80053; 85025; 99212; 99283; J1642

== ENCOUNTER 2022-04-04 18:19 | Emergency (ER) | payer MEDICARE, MEDICAID, SELFPAY ==
[2022-04-04 20:30] VITALS: BP 106/64; PULSE 73; RESP 18; TEMP 36.9; O2SAT 98; BMI 20.7
[2022-04-04 20:53] LABS: MANUAL DIFF FLAG NO
[2022-04-04 21:02] LABS: Basophils Percent Auto 0.5 % (0-2); Eosinophils Absolute Auto 0.1 X10*3/uL (0.0-0.4); Eosinophils Percent Auto 1.8 % (0-4); Hematocrit 33.7 % (37.0-47.0); Hemoglobin 11.1 g/dl (12.0-16.0); Imm Gran Abs Auto 0.01 X10*3/uL (0.00-0.03); Imm Gran Pct Auto 0.2 % (0.0-0.4); Lymphocytes Absolute Auto 2.3 X10*3/uL (1.2-4.9); Lymphocytes Percent Auto 41.5 % (20-40); Mean Corpuscular HGB Conc 32.9 g/dl (31.0-35.0); Mean Corpuscular Hemoglobin 29.7 pg (27.0-33.0); Mean Corpuscular Volume 90.1 fL (80.0-98.0); Mean Platelet Volume 8.5 fL (9.4-12.3); Monocytes Absolute Auto 0.5 X10*3/uL (0.1-1.2); Monocytes Percent Auto 8.9 % (2-11); Neutrophils Absolute Auto 2.6 x10*3/uL (2.0-8.3); Neutrophils Percent Auto 47.1 % (45-73); Platelet Count 354 X10*3/uL (160-400); Red Blood Count 3.74 X10*6/uL (4.20-5.50); Red Cell Distribution Width 15.6 % (11.0-16.0); White Blood Count 5.5 X10*3/uL (4.8-10.8)
[2022-04-04 21:15] LABS: Appearance Urine TURBID; Color Urine YELLOW; Glucose Urine UA NEG (NEG); Leukocyte Esterase Urine TRACE (NEG); Nitrite Urine NEG (NEG); Specific Gravity - Urine 1.025 (1.005-1.025); Urine Blood NEG (NEG); Urine Ketones NEG (NEG); Urine Protein NEG (NEG-TRACE)
[2022-04-04 21:15] LABS: Lactic Acid 1.3 mmol/L (0.5-2.0)
[2022-04-04 21:19] LABS: Alanine Aminotransferase 23 U/L (0-31); Alkaline Phosphatase 88 U/L (39-117); Anion Gap 9 (12-20); Aspartate Amino Transferase 23 U/L (5-31); Bilirubin Total 0.3 mg/dL (0.0-1.0); Blood Urea Nitrogen 14 mg/dL (9-16); Calcium 8.8 mg/dL (8.4-10.2); Carbon Dioxide 29 mmol/L (22-29); Chloride 104 mmol/L (96-108); Creatinine Clr Calc Pharmacy 54.2; Estimated Glomerular Filt Rate > 60; Glucose Random 77 mg/dL (60-115); Potassium 3.9 mmol/L (3.3-5.1); Sodium 138 mmol/L (135-145); Total Protein 6.5 g/dL (6.5-8.0)
[2022-04-04 21:29] LABS: Amorphous Sediment Urine 4+ /LPF; Calcium Oxalate Crystals Urine 4+ /LPF; Mucus Urine 2+ /LPF; Squamous Epithelial Cell Urine TRACE /LPF; Uric Acid Crystals Urine TRACE /LPF; WBC Clumps Urine NOTED
[2022-04-05 02:00] VITALS: BP 116/66; PULSE 66; RESP 16; TEMP 36.9; O2SAT 98
--- NOTE | 2022-04-05 02:37 | ED_ITS ---
HPI - Female Genitourinary General Chief complaint: Urogenital-Female Stated complaint: Unable to Urinate ?UTI Sent by PCP Time Seen by Provider: 04/05/22 02:37 Source: patient Mode of arrival: ambulatory Limitations: no limitations History of Present Illness HPI Narrative: 57 years old female came in for evaluation of urinary frequency and dysuria for the past week. Patient was evaluated by her urologist and was told that she has a UTI patient normally when she gets UTI require hospitalization for IV antibiotic due to allergy to most oral antibiotic. Patient stated that her symptoms started about 5 days ago, able to urinate but small quantities with lot of discomfort, no fever or chills. Related Data Home Medications Medication Instructions Recorded Confirmed aspirin 81 mg tablet,delayed 81 mg PO DAILY 01/28/21 01/07/22 release (Adult Low Dose Aspirin) pantoprazole 40 mg tablet,delayed 40 mg PO DAILY 12/22/21 01/07/22 release amitriptyline 25 mg tablet 1 tab PO BEDTIME 01/07/22 01/07/22 cholestyramine (with sugar) 4 gram 1 packet PO BID 01/07/22 01/07/22 powder for susp in a packet diphenhydramine HCl 25 mg tablet 50 mg PO BEDTIME 01/07/22 01/07/22 (Banophen) folic acid 1 mg tablet 1 tab PO DAILY 01/07/22 01/07/22 loperamide 2 mg capsule 2 mg PO NEEDED PRN Diarrhea 01/07/22 01/07/22 magnesium oxide 400 mg (241.3 mg 1 tab PO BID 01/07/22 01/07/22 magnesium) tablet multivitamin-ferrous 1 tab PO DAILY 01/07/22 01/07/22 fumarate-folic acid 18 mg-400 mcg tablet (Certavite-Antioxidant) ondansetron HCl 4 mg tablet 1 tab PO Q8H PRN Nausea And 01/07/22 01/07/22 Vomiting oxybutynin chloride 5 mg tablet 1 tab PO BID 01/07/22 01/07/22 potassium chloride 10 mEq 1 tab PO BID 01/07/22 01/07/22 tablet,extended release(part/cryst) thiamine HCl (vitamin B1) 100 mg 1 tab PO DAILY 01/07/22 01/07/22 tablet (Vitamin B-1) trazodone 50 mg tablet 1 tab PO BEDTIME 01/07/22 01/07/22 Previous Rx's Medication Instructions Recorded dicyclomine 20 mg tablet 20 mg PO BID #60 tabs 08/11/21 digoxin 125 mcg (0.125 mg) tablet 125 mcg PO DAILY #90 tabs 08/11/21 levetiracetam 750 mg tablet 750 mg PO BID 30 days #60 tabs 08/11/21 albuterol sulfate 90 mcg/actuation 2 puff inhalation Q6H PRN for 01/02/22 aerosol inhaler muscle spasm #18 grams budesonide-formoterol HFA 80 2 puff inhalation BID #10.2 grams 01/03/22 mcg-4.5 mcg/actuation aerosol inhaler levothyroxine 50 mcg tablet 50 mcg PO DAILY #30 tabs 01/03/22 loratadine 10 mg tablet 10 mg PO DAILY #90 tabs 01/03/22 apixaban 5 mg tablet (Eliquis) 5 mg PO BID #60 tabs 01/11/22 tobramycin sulfate 40 mg/mL 240 mg (6 mL) IV Q24H 6 days #36 mL 01/11/22 injection solution diphenhydramine HCl 25 mg/50 mL in 25 mg (50 mL) IV .Q24 before IV 01/12/22 0.9 % sodium chloride IV piggyback medication 5 days oxycodone 5 mg tablet 5 mg PO Q6H PRN Pain, Severe (Pain 01/12/22 Scale 7-10) #12 tabs simvastatin 40 mg tablet 40 mg PO BEDTIME #90 tabs 02/01/22 duloxetine 60 mg capsule,delayed 60 mg PO DAILY #30 caps 02/16/22 release food supplemt, lactose-reduced 1 ea PO TID #90 bottles 02/16/22 (Ensure) ropinirole 1 mg tablet 1 mg PO DAILY #30 tabs 03/20/22 Allergies Allergy/AdvReac Type Severity Reaction Status Date / Time erythromycin base Allergy Severe Anaphylaxis Verified 04/04/22 20:30 [ERYTHROMYCIN BASE] levofloxacin [From Levaquin] Allergy Severe Anaphylaxis Verified 04/04/22 20:30 Penicillins [PCN] Allergy Severe Anaphylaxis Verified 04/04/22 20:30 SEAFOOD Allergy Severe Anaphylaxis Verified 04/04/22 20:30 Sulfa (Sulfonamide Allergy Severe Anaphylaxis, Verified 04/04/22 20:30 Antibiotics) vomiting [SULFA (SULFONAMIDE ANTIBIOTICS)] Tetracyclines Allergy Severe Anaphylaxis Verified 04/04/22 20:30 divalproex sodium [Depakote] Allergy Unknown altered Verified 04/04/22 20:30 mental status gluten [GLUTEN] Allergy Unknown BLOATING,RA Verified 04/04/22 20:30 SH rice Allergy Unknown Verified 04/04/22 20:30 Review of Systems Review of Systems: All other systems are reviewed and are negative Constitutional: Reports as per HPI and Reports no additional constitutional complaints Eyes: Reports as per HPI and Reports no additional eye complaints Reports system reviewed and no additional complaints, except as documented Cardiovascular: Reports as per HPI and Reports no additional cardiovascular complaints Respiratory: Reports as per HPI and Reports no additional respiratory complaints Gastrointestinal: Reports as per HPI and Reports no additional gastrointestinal complaints Genitourinary: Reports no additional female genitourinary complaints Musculoskeletal: Reports no additional musculoskeletal complaints Skin/Breast: Reports system reviewed and no additional complaints, except as docu Psychiatric: Reports no additional psychiatric complaints Endocrine: Reports no additional endocrine complaints Hematologic/Lymphatic: Reports no additional hematologic/lymphatic complaints Allergic/Immunologic: Reports no additional allergic/immunologic complaints Reports system reviewed and no additional complaints, except as documented and Reports Abnormal speech present [facility] Past Medical History Medical History Allergy to multiple drugs Colon cancer Conversion disorder COPD (chronic obstructive pulmonary disease) Deep vein thrombosis Paroxysmal A-fib Pseudoseizure Surgical History History of bladder surgery History of colectomy History of colonoscopy History of colostomy reversal History of facial surgery History of partial gastrectomy History of partial surgical removal of colon History of sinus surgery S/P IVC filter Family History Family History Mother CAD (coronary artery disease) Other Mental health disorder Social History Social History Household Members: Other Household Members Other:: 3 roommates Housing: House Do you presently have visiting nurse or other home services: Yes Alcohol intake: never Patient Tobacco Use Status: Never used Tobacco e-Cigarette/Vaping Use: Never Used Second Hand Smoke Exposure: Yes Advance Directives: No Advance Directives Information Provided: No Patient : No service: No Current occupational status: disabled Cognitive needs: Yes (cane) Hearing needs: No Vision needs: Yes (Glasses) Physical Exam Vital Signs: Vital Signs: Last Vital Signs Temp 98.5 F 04/05/22 02:00 Pulse 66 04/05/22 02:00 Resp 16 04/05/22 02:00 BP 116/66 04/05/22 02:00 Pulse Ox 98 04/05/22 02:00 O2 Del Method 04/05/22 02:00 BMI result Body Mass Index 20.7 Vital signs have been reviewed as appeared to be correct. Blood pressure normal. Heart rate normal. Respiration rate normal. Temperature normal. Oxygen saturation normal. Appearance: Alert. Oriented X3. No acute distress. Head: Normal external exam. Normocephalic. Atraumatic. No [place] signs noted. No raccoon eyes noted Eyes: PERRLA. EOMI. Conjunctiva and sclera normal. Eyelids normal. ENT: TM's Normal. Pharynx normal. Uvula midline. Moist mucous membranes. No trismus noted. No drooling noted. No muffled voice noted. Neck: Normal inspection. Neck supple. FROM. No adenopathy. Thyroid Normal. No meningeal signs. No neck mass noted. CVS: Normal heart rate and rhythm. Heart sound normal. No murmurs noted. Pulses normal throughout. Respiratory: No respiratory distress. Painless inspiration. Breath sounds normal. No wheezes/rales/rhonchi noted. Chest nontender. No accessory muscle usage noted or decreased air movement noted. Abdomen: Soft and nontender. Bowel sounds normal in all 4 quadrants. No distention noted. No organomegaly noted. No visible injury noted. Back: No CVA tenderness. Full range of motion noted. Skin: Skin warm and dry. Normal skin color. Normal skin turgor. No rashes/lesions/lacerations noted. Extremities: No lower extremity edema. Extremities exhibit normal range of motion. Extremities nontender. Neuro: Oriented X 3. Cranial nerve exam: II-XII are grossly intact No motor deficit. No sensory deficit. Reflexes normal. Course Course Course Narrative: Assessment and plan. 66-year-old female came in for evaluation of urinary frequency and dysuria, labs/physical exam/UA is not revealing a UTI. Patient's symptoms improved after taking oxycodone. Patient will be discharged instructed to drink plenty of fluids and awaiting for urine culture. Given monae allergy of most of antibiotic I would not start empirical antibiotic on this patient without having confirmed growing bacteria in the urine culture. MDM - Female Genitourinary Medical Records Attestation: I reviewed the patient's medical records. Lab Data Attestation: I reviewed the patient's lab results. Result diagrams: 04/04/22 20:47 04/04/22 20:47 Labs: Lab Results 04/04/22 04/04/22 04/04/22 Range/Units 20:43 20:47 20:47 WBC 5.5 (4.8-10.8) X10*3/uL RBC 3.74 L (4.20-5.50) X10*6/uL Hgb 11.1 L (12.0-16.0) g/dl Hct 33.7 L (37.0-47.0) % MCV 90.1 (80.0-98.0) fL MCH 29.7 (27.0-33.0) pg MCHC 32.9 (31.0-35.0) g/dl RDW 15.6 (11.0-16.0) % Plt Count 354 D (160-400) X10*3/uL MPV 8.5 L (9.4-12.3) fL Immature Gran % (Auto) 0.2 (0.0-0.4) % Neut % (Auto) 47.1 (45-73) % Lymph % (Auto) 41.5 H (20-40) % Mcdowell % (Auto) 8.9 (2-11) % Eos % (Auto) 1.8 (0-4) % Baso % (Auto) 0.5 (0-2) % Lymph # (Auto) 2.3 (1.2-4.9) X10*3/uL [place]cd[place] # (Auto) 0.5 (0.1-1.2) X10*3/uL Eos # (Auto) 0.1 (0.0-0.4) X10*3/uL Baso # (Auto) 0.0 (0.0-0.2) X10*3/uL Abs Immat Gran (auto) 0.01 (0.00-0.03) X10*3/uL Absolute Neuts (auto) 2.6 (2.0-8.3) x10*3/uL Absolute Nucleated RBC 0.000 (0.0-0.012) X10*3/uL Nucleated RBC % (auto) 0.0 (0.0-0.2) /100WBC Sodium 138 (135-145) mmol/L Potassium 3.9 (3.3-5.1) mmol/L Chloride 104 (96-108) mmol/L Carbon Dioxide 29 (22-29) mmol/L Anion Gap 9 L (12-20) BUN 14 (9-16) mg/dL Creatinine 0.78 (0.5-1.4) mg/dL Estim Creat Clear Calc 54.2 Estimated GFR > 60 Random Glucose 77 (60-115) mg/dL Lactic Acid (0.5-2.0) mmol/L Calcium 8.8 D (8.4-10.2) mg/dL Total Bilirubin 0.3 (0.0-1.0) mg/dL AST 23 (5-31) U/L ALT 23 (0-31) U/L Alkaline Phosphatase 88 D (39-117) U/L Total Protein 6.5 (6.5-8.0) g/dL Albumin 4.0 (3.5-5.0) g/dL Urine Color YELLOW Urine Appearance TURBID Urine pH 6.0 (5.0-8.0) Ur Specific [place] 1.025 (1.005-1.025) Urine Protein NEG (NEG-TRACE) MG/DL Urine Glucose (UA) NEG (NEG) MG/DL Urine Ketones NEG (NEG) MG/DL Urine Blood NEG (NEG) Urine Nitrite NEG (NEG) Ur Leukocyte Esterase TRACE H (NEG) Urine RBC 1-4 (0) /HPF Urine WBC 1-4 (0-4) /HPF Urine WBC Clumps NOTED Ur Squamous Epith Cells TRACE /LPF Calcium Oxalate Crystal 4+ /LPF Uric Acid Crystals TRACE /LPF Amorphous Sediment 4+ /LPF Urine Bacteria NONE /LPF Urine Mucus 2+ /LPF 04/04/22 Range/Units 20:47 WBC (4.8-10.8) X10*3/uL RBC (4.20-5.50) X10*6/uL Hgb (12.0-16.0) g/dl Hct (37.0-47.0) % MCV (80.0-98.0) fL MCH (27.0-33.0) pg MCHC (31.0-35.0) g/dl RDW (11.0-16.0) % Plt Count (160-400) X10*3/uL MPV (9.4-12.3) fL Immature Gran % (Auto) (0.0-0.4) % Neut % (Auto) (45-73) % Lymph % (Auto) (20-40) % Mcdowell % (Auto) (2-11) % Eos % (Auto) (0-4) % Baso % (Auto) (0-2) % Lymph # (Auto) (1.2-4.9) X10*3/uL [place] # (Auto) (0.1-1.2) X10*3/uL Eos # (Auto) (0.0-0.4) X10*3/uL Baso # (Auto) (0.0-0.2) X10*3/uL Abs Immat Gran (auto) (0.00-0.03) X10*3/uL Absolute Neuts (auto) (2.0-8.3) x10*3/uL Absolute Nucleated RBC (0.0-0.012) X10*3/uL Nucleated RBC % (auto) (0.0-0.2) /100WBC Sodium (135-145) mmol/L Potassium (3.3-5.1) mmol/L Chloride (96-108) mmol/L Carbon Dioxide (22-29) mmol/L Anion Gap (12-20) BUN (9-16) mg/dL Creatinine (0.5-1.4) mg/dL Estim Creat Clear Calc Estimated GFR Random Glucose (60-115) mg/dL Lactic Acid 1.3 (0.5-2.0) mmol/L Calcium (8.4-10.2) mg/dL Total Bilirubin (0.0-1.0) mg/dL AST (5-31) U/L ALT (0-31) U/L Alkaline Phosphatase (39-117) U/L Total Protein (6.5-8.0) g/dL Albumin (3.5-5.0) g/dL Urine Color Urine Appearance Urine pH (5.0-8.0) Ur Specific [place] (1.005-1.025) Urine Protein (NEG-TRACE) MG/DL Urine Glucose (UA) (NEG) MG/DL Urine Ketones (NEG) MG/DL Urine Blood (NEG) Urine Nitrite (NEG) Ur Leukocyte Esterase (NEG) Urine RBC (0) /HPF Urine WBC (0-4) /HPF Urine WBC Clumps Ur Squamous Epith Cells /LPF Calcium Oxalate Crystal /LPF Uric Acid Crystals /LPF Amorphous Sediment /LPF Urine Bacteria /LPF Urine Mucus /LPF Discharge Plan Discharge Clinical Impression: Dysuria Patient Disposition: Home, Self-Care Instructions: Dysuria (ED) Prescriptions: No Action aspirin [Adult Low Dose Aspirin] 81 mg tablet,delayed release (DR/EC) 81 mg PO DAILY albuterol sulfate 90 mcg/actuation HFA aerosol inhaler 2 puff inhalation Q6H PRN (Reason: for muscle spasm) Qty: 18 1RF loratadine 10 mg tablet 10 mg PO DAILY Qty: 90 1RF levothyroxine 50 mcg tablet 50 mcg PO DAILY Qty: 30 2RF budesonide-formoterol 80-4.5 mcg/actuation HFA aerosol inhaler 2 puff inhalation BID Qty: 10.2 2RF simvastatin 40 mg tablet 40 mg PO BEDTIME Qty: 90 1RF Ensure Liquid 1 ea PO TID Qty: 90 0RF duloxetine 60 mg capsule,delayed release(DR/EC) 60 mg PO DAILY Qty: 30 0RF ropinirole 1 mg tablet 1 mg PO DAILY Qty: 30 3RF loperamide 2 mg capsule 2 mg PO NEEDED PRN (Reason: Diarrhea) trazodone 50 mg tablet 1 tab PO BEDTIME ondansetron HCl 4 mg tablet 1 tab PO Q8H PRN (Reason: Nausea And Vomiting) thiamine HCl (vitamin B1) [Vitamin B-1] 100 mg tablet 1 tab PO DAILY amitriptyline 25 mg tablet 1 tab PO BEDTIME magnesium oxide 400 mg (241.3 mg magnesium) tablet 1 tab PO BID diphenhydramine HCl [Banophen] 25 mg Tablet 50 mg PO BEDTIME folic acid 1 mg tablet 1 tab PO DAILY oxybutynin chloride 5 mg tablet 1 tab PO BID cholestyramine (with sugar) 4 gram powder in packet 1 packet PO BID potassium chloride 10 mEq tablet,ER particles/crystals 1 tab PO BID Certavite-Antioxidant 18-400 mg-mcg tablet 1 tab PO DAILY tobramycin sulfate 40 mg/mL solution 240 mg IV Q24H 6 Days Qty: 36 0RF Eliquis 5 mg Tablet 5 mg PO BID Qty: 60 0RF oxycodone 5 mg Tablet 5 mg PO Q6H PRN (Reason: Pain, Severe (Pain Scale 7-10)) Qty: 12 0RF diphenhydramine-0.9 % sod.chlr 25 mg/50 mL piggyback 25 mg IV .Q24 5 Days 0RF Rx Instructions: may repeat once in 30-60 minutes if not effective dicyclomine 20 mg tablet 20 mg PO BID Qty: 60 0RF digoxin 125 mcg (0.125 mg) tablet 125 mcg PO DAILY Qty: 90 0RF Hold Instructions: Doctor's Order levetiracetam 750 mg tablet 750 mg PO BID 30 Days Qty: 60 8RF pantoprazole 40 mg tablet,delayed release (DR/EC) 40 mg PO DAILY Referrals: Bob Camp MD [Primary Care Provider] -
[2022-04-05] MEDS: oxyCODONE HCl Immed Release 5 MG TABLET PO (03:04)
== END 2022-04-05 03:09 | disposition home or self-care (01) ==
PROVIDERS: Emergency Provider Emergency Medicine; PCP Internal Medicine
DX: R30.0 Dysuria (principal); I48.0 Paroxysmal atrial fibrillation; Z86.718 Personal history of other venous thrombosis and embolism; Z79.82 Long term (current) use of aspirin; Z79.899 Other long term (current) drug therapy; Z79.01 Long term (current) use of 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; Z79.02 Long term (current) use of antithrombotics/antiplatelets
CPT/HCPCS: 36415; 80053; 81001; 81003; 83605; 85025; 99283; 99284

== ENCOUNTER 2022-08-18 14:23 | Emergency (ER) | payer MEDICARE, MEDICAID, SELFPAY ==
--- NOTE | ~2022-08-18 | CT_ITS ---
EXAMINATION: CT ABDOMEN AND PELVIS WITHOUT CONTRAST CLINICAL INFORMATION: Left flank pain COMPARISON: CT abdomen pelvis 01/06/2022 TECHNIQUE: Multidetector volumetric imaging was performed from the superior aspect of the liver through the pubic symphysis. Sagittal and coronal reformatted images were obtained on the technologist's workstation. This CT examination was performed using dose optimization techniques as appropriate, variously including the following: *Automated exposure control *Adjustment of mA and/or kV according to patient size (this includes techniques or standardized protocols for targeted exams where dose is matched to indication/reason for exam; i.e. extremities or head) *Use of iterative reconstruction technique DLP: 639 mGy-cm FINDINGS: LUNG BASES: The visualized lung bases are unremarkable. LIVER, GALLBLADDER, AND BILIARY TREE: The liver is normal in size, shape, and attenuation. No focal hepatic lesion or biliary ductal dilatation is present. Status post cholecystectomy with air small amount of air seen in the biliary tree. There is a small amount of ascites present in Morison's pouch. PANCREAS: Pancreatic duct mildly prominent at 4 mm. No pancreatic masses are seen SPLEEN: Unremarkable. ADRENAL GLANDS: Unremarkable. KIDNEYS AND URETERS: The kidneys are normal in size, shape, and attenuation. 2 tiny hyperdense cysts are again seen in the right kidney the largest measuring only 6 mm. No worrisome renal masses are seen. No hydronephrosis, hydroureter, or calculi seen. No perinephric stranding. BLADDER: The bladder is markedly distended. A Degroot catheter which had been present previously is no longer seen. GASTROINTESTINAL TRACT: There is been prior bowel surgery with left lower quadrant colostomy and multiple surgical clips in the mesentery and small bowel. No evidence of bowel obstruction. Appearances are without significant change when compared to the 01/06/2022 exam ABDOMINAL WALL: Previously seen right rectus muscle hematoma has resolved. Left lower quadrant colostomy. No abdominal wall hernias are seen. LYMPH NODES: No retroperitoneal lymphadenopathy.. VASCULAR: An IVC filter is present. Calcific plaque present in the aorta without aneurysm. PELVIC VISCERA: Surgically removed. OSSEOUS STRUCTURES: Mild degenerative changes without bony destruction CT/CT abdomen pelvis wo IV con IMPRESSION: 1. A cause for the patient's left flank pain has not been found. 2. Incidental note made of cholecystectomy, mild prominence of pancreatic duct, prior bowel surgery with left lower quadrant colostomy, resolution of right rectus muscle hematoma and marked distention of the bladder. Fleischner guidelines were followed.
[2022-08-18 14:37] VITALS: BP 118/68; BP 131/61; PULSE 85; RESP 18; TEMP 36.7; O2SAT 97; O2SAT 99; BMI 20.7
--- NOTE | 2022-08-18 15:00 | PC.NURSE ---
patient a/ox4 . librado . heart rate regular at 85 beats per minute . breathing even and unlabored , lungs clear throughout . skin pink warm and dry .patient has colostomy bag located in left lower quadrant .positive bowel sounds throughout . abdomen hard , rebound tenderness noted throughout . patient reports constant diarrhea . patient reports a history of blood in urine for 4 days , with left flank that has progressed to a level 10 out out of 10 that she can not tolerate anymore .Patient also reports that the pain shoots around her back and down her leg . IV placed by EMS in right hand . patient aware of plan of care .
[2022-08-18 15:21] VITALS: BP 101/57; PULSE 97; RESP 28; TEMP 37.1; O2SAT 98
--- NOTE | 2022-08-18 16:00 | ED.GENADULT ---
HPI - General Adult General Chief complaint: Abdominal Pain Stated complaint: L FLANK PAIN PER EMS Time Seen by Provider: 08/18/22 15:53 Source: patient Mode of arrival: ambulatory Limitations: no limitations History of Present Illness HPI narrative: 66-year-old female past pertinent medical history of UTI, pseudoseizures, hypothyroidism, neurogenic bladder, renal failure, colitis, colon cancer presents today to the emergency department with a week long history of left flank pain. Patient admits to left lower flank pain for several months however has worsened over the past week. Patient describes the pain as severe, sharp, constant. Pain radiates from the left flank inferior to the left knee. Rates the pain as a 10/10. Pain has gotten so bad over the past day that patient called EMS. Has not taken any medications at home for this. Has been ambulatory w/o difficulties. Associated symptoms include chills, nausea, vomiting, hematuria, diarrhea, dysuria, urinary frequency, foul odor of urine. Patient states that her colostomy bag has been filled with clear fluid. Denies fevers, chest pain, shortness of breath, headache, visual changes, melena, hematochezia, numbness, tingling, incontinence of urine or feces. Denies history of kidney stones or pyelonephritis. Patient has never experienced anything like this before. Related Data Home Medications Medication Instructions Recorded Confirmed aspirin 81 mg tablet,delayed 81 mg PO DAILY 01/28/21 01/07/22 release (Adult Low Dose Aspirin) pantoprazole 40 mg tablet,delayed 40 mg PO DAILY 12/22/21 01/07/22 release amitriptyline 25 mg tablet 1 tab PO BEDTIME 01/07/22 01/07/22 cholestyramine (with sugar) 4 gram 1 packet PO BID 01/07/22 01/07/22 powder for susp in a packet diphenhydramine HCl 25 mg tablet 50 mg PO BEDTIME 01/07/22 01/07/22 (Banophen) folic acid 1 mg tablet 1 tab PO DAILY 01/07/22 01/07/22 loperamide 2 mg capsule 2 mg PO NEEDED PRN Diarrhea 01/07/22 01/07/22 magnesium oxide 400 mg (241.3 mg 1 tab PO BID 01/07/22 01/07/22 magnesium) tablet multivitamin-ferrous 1 tab PO DAILY 01/07/22 01/07/22 fumarate-folic acid 18 mg-400 mcg tablet (Certavite-Antioxidant) ondansetron HCl 4 mg tablet 1 tab PO Q8H PRN Nausea And 01/07/22 01/07/22 Vomiting oxybutynin chloride 5 mg tablet 1 tab PO BID 01/07/22 01/07/22 potassium chloride 10 mEq 1 tab PO BID 01/07/22 01/07/22 tablet,extended release(part/cryst) thiamine HCl (vitamin B1) 100 mg 1 tab PO DAILY 01/07/22 01/07/22 tablet (Vitamin B-1) trazodone 50 mg tablet 1 tab PO BEDTIME 01/07/22 01/07/22 Previous Rx's Medication Instructions Recorded dicyclomine 20 mg tablet 20 mg PO BID #60 tabs 08/11/21 digoxin 125 mcg (0.125 mg) tablet 125 mcg PO DAILY #90 tabs 08/11/21 levetiracetam 750 mg tablet 750 mg PO BID 30 days #60 tabs 08/11/21 budesonide-formoterol HFA 80 2 puff inhalation BID #10.2 grams 01/03/22 mcg-4.5 mcg/actuation aerosol inhaler loratadine 10 mg tablet 10 mg PO DAILY #90 tabs 01/03/22 apixaban 5 mg tablet (Eliquis) 5 mg PO BID #60 tabs 01/11/22 tobramycin sulfate 40 mg/mL 240 mg (6 mL) IV Q24H 6 days #36 mL 01/11/22 injection solution diphenhydramine HCl 25 mg/50 mL in 25 mg (50 mL) IV .Q24 before IV 01/12/22 0.9 % sodium chloride IV piggyback medication 5 days oxycodone 5 mg tablet 5 mg PO Q6H PRN Pain, Severe (Pain 01/12/22 Scale 7-10) #12 tabs simvastatin 40 mg tablet 40 mg PO BEDTIME #90 tabs 02/01/22 duloxetine 60 mg capsule,delayed 60 mg PO DAILY #30 caps 02/16/22 release food supplemt, lactose-reduced 1 ea PO TID #90 bottles 02/16/22 (Ensure oral liquid) albuterol sulfate 90 mcg/actuation 2 puff inhalation Q6H PRN for 04/06/22 aerosol inhaler muscle spasm #18 grams levothyroxine 50 mcg tablet 50 mcg PO DAILY #30 tabs 04/07/22 ropinirole 1 mg tablet 1 mg PO DAILY #30 tabs 07/05/22 loperamide 2 mg capsule 2 mg PO Q6H PRN loose stool #14 08/18/22 caps nitrofurantoin 100 mg PO BID 5 days #10 caps 08/18/22 monohydrate/macrocrystals 100 mg capsule (Macrobid) Allergies Allergy/AdvReac Type Severity Reaction Status Date / Time erythromycin base Allergy Severe Anaphylaxis Verified 04/04/22 20:30 [ERYTHROMYCIN BASE] levofloxacin [From Levaquin] Allergy Severe Anaphylaxis Verified 04/04/22 20:30 Penicillins [PCN] Allergy Severe Anaphylaxis Verified 04/04/22 20:30 SEAFOOD Allergy Severe Anaphylaxis Verified 04/04/22 20:30 Sulfa (Sulfonamide Allergy Severe Anaphylaxis, Verified 04/04/22 20:30 Antibiotics) vomiting [SULFA (SULFONAMIDE ANTIBIOTICS)] Tetracyclines Allergy Severe Anaphylaxis Verified 04/04/22 20:30 divalproex sodium [Depakote] Allergy Unknown altered Verified 04/04/22 20:30 mental status gluten [GLUTEN] Allergy Unknown BLOATING,RA Verified 04/04/22 20:30 SH rice Allergy Unknown Verified 04/04/22 20:30 Review of Systems Review of Systems: Constitutional : No Weight loss, No Fever, + Chills, No Fatigue, No Malaise ENT/Mouth : No sore throat, No Rhinorrhea Eyes: No Eye Pain, No Swelling, No Redness Cardiovascular : No Chest Pain, No SOB, No Dyspnea on Exertion, No Orthopnea, No Edema, No Palpitations Respiratory : No Cough, No Sputum, No Wheezing Gastrointestinal : + Nausea, + Vomiting, No Constipation, No abdominal Pain, No Hematochezia, No Melena Genitourinary : + Dysuria, + Urinary Frequency, + Hematuria Musculoskeletal : No joint pain, No Myalgias, No Joint Swelling, + flank pain Skin : No Skin Lesions, No rash Neuro : No Weakness, No Numbness, No Dizziness, No Headache Psych : No Anxiety/Panic, No Depression All other systems reviewed and are negative Yes all other systems are reviewed and are negative PMFSH Past Medical History Attestation statement: The following information was validated with the patient. Source: old records reviewed and nursing notes reviewed Medical History Allergy to multiple drugs Colon cancer Conversion disorder COPD (chronic obstructive pulmonary disease) Deep vein thrombosis Paroxysmal A-fib Pseudoseizure Surgical History History of bladder surgery History of colectomy History of colonoscopy History of colostomy reversal History of facial surgery History of partial gastrectomy History of partial surgical removal of colon History of sinus surgery S/P IVC filter Family History Family History Mother CAD (coronary artery disease) Other Mental health disorder Social History Social History Household Members: Other Household Members Other:: 3 roommates Housing: House Do you presently have visiting nurse or other home services: Yes Alcohol intake: former Patient Tobacco Use Status: Never used Tobacco Smoked in Last 30 Days: No e-Cigarette/Vaping Use: Never Used Second Hand Smoke Exposure: Yes Advance Directives: No Advance Directives Information Provided: No service: No Current occupational status: disabled Cognitive needs: Yes (cane) Hearing needs: No Vision needs: Yes (Glasses) Physical Exam ED Vital Signs: Vital Signs - 24 hr 08/18/22 14:37 08/18/22 15:21 08/18/22 18:04 Temperature 98.1 F 98.7 F Pulse Rate 85 97 76 Respiratory Rate 18 28 H 16 Blood Pressure 118/68 101/57 L 103/60 Pulse Oximetry 97 98 97 Oxygen Delivery Method Room Air Room Air Room Air BMI result Body Mass Index 20.7 vss Appearance: Alert.? Oriented X3.? Uncomfortable on the exam table. Head: Normocephalic, atraumatic, no step-offs or deformities Eyes: Pupils equal, round and reactive to light.? CVS: Normal heart rate and rhythm.? Pulses normal.? Respiratory: No respiratory distress.? Breath sounds normal.? Abdomen: Soft and nontender.? Active bowel sounds off 4 quadrants. Colostomy bag to left lower quadrant. Skin: Skin warm and dry.? Normal skin color.? Normal skin turgor.? Extremities: No lower extremity edema.? No calf ttp. 5/5 strength to bilateral upper and lower extremities Back: No midline tenderness, no C-spine tenderness, full range of motion, + CVA tenderness to left flank. Neuro: Oriented X 3.? No motor deficit.? No sensory deficit. CN 2-12 intact. . Ambulating with steady gait, normal coordination. No saddle paresthesias. Normal sensation to upper and lower extremities. Course Reevaluation(s) Reevaluation #1: I was called to the bedside for patient seizing however per nursing patient stated she was seeing ?starburst ?and then she said she was having a seizure as she was shaking, patient has a history of pseudoseizures I went to evaluate patient, patient's eyes were not rolled back, no loss of bladder or bowel, responding to commands, likely pseudo-seizure unlikely seizure. Time: 16:45 Reevaluation #2: CBC appears to be around baseline. Chemistry with no acute findings. CT of the abdomen pelvis with no will cause for patient's left flank pain. Incidental note of cholecystectomy, mild prominence of the pancreatic duct prior bowel surgery of left lower quadrant colostomy resolution of right rectus muscle hematoma and marked distention of the bladder. Patient will get a straight cath for collection of urine to rule out UTI. Patient does have a history of neurogenic bladder and tells me that this is normal for her. Lipase, UA pending. Time: 17:59 Reevaluation #3: Lipase within normal limits. UA negative. Likely cystitis will start patient on nitrofurantoin. Advised return with new or worsening symptoms. Educated on worrisome signs and symptoms. At time of discharge patient tolerating p.o., telling me she feels slightly better. Will give her GI follow-up. At this time I feel comfortable discharge Worrisome signs and symptoms outlined on discharge. Time: 19:22 Medications Administered Discontinued Medications Generic Name Dose Route Start Last Admin Trade Name Freq PRN Reason Stop Dose Admin Hydromorphone HCl 1 mg 08/18/22 18:01 08/18/22 18:19 Hydromorphone Hcl 2 Mg Tablet PO 08/18/22 18:02 1 mg ONCE ONE Administration Sodium Chloride 1,000 mls @ 999 mls/hr 08/18/22 16:15 08/18/22 18:04 Ns IV 08/18/22 17:15 Not Given .Q1H1M MAISHA Loperamide HCl 2 mg 08/18/22 17:59 08/18/22 18:19 Loperamide Hcl 2 Mg Capsule PO 08/18/22 18:00 2 mg ONCE ONE Administration Morphine Sulfate 2 mg 08/18/22 15:56 08/18/22 16:05 Morphine Sulfate 2 Mg/Ml Cartridge IVPUSH 08/18/22 15:57 2 mg ONCE ONE Administration Protocol Medical Decision Making MDM Narrative Medical decision making narrative: 1600 66-year-old female past pertinent medical history of UTI, renal failure, neurogenic bladder, colitis, colon cancer presents today to the emergency department with a week long history of left flank pain, increasing in intensity. PE remarkable for left CVA tenderness. Likely pyelonephritis versus obstructive uropathy versus UTI. Unlikely spinal abscess, mass, epidural hematoma, epidural abcess, cauda equina or nephrolithiasis. Diarrhea likley viral. Unlikley AAA. Plan at this time is to order imaging, labs, urine. Medical Records Medical records reviewed: Yes I reviewed the patient's medical records. Lab Data Lab results reviewed: Yes I reviewed the patient's lab results. Result diagrams: 08/18/22 16:25 08/18/22 16:25 Labs: Lab Results 08/18/22 08/18/22 08/18/22 Range/Units 16:25 16:25 16:25 WBC 5.8 (4.8-10.8) X10*3/uL RBC 4.00 L (4.20-5.50) X10*6/uL Hgb 12.3 (12.0-16.0) g/dl Hct 36.9 L (37.0-47.0) % MCV 92.3 (80.0-98.0) fL MCH 30.8 (27.0-33.0) pg MCHC 33.3 (31.0-35.0) g/dl RDW 13.5 (11.0-16.0) % Plt Count 294 (160-400) X10*3/uL MPV 8.9 L (9.4-12.3) fL Immature Gran % (Auto) 0.2 (0.0-0.4) % Neut % (Auto) 61.9 (45-73) % Lymph % (Auto) 29.8 (20-40) % [place] % (Auto) 6.4 (2-11) % Eos % (Auto) 1.2 (0-4) % Baso % (Auto) 0.5 (0-2) % Lymph # (Auto) 1.7 (1.2-4.9) X10*3/uL [place] # (Auto) 0.4 (0.1-1.2) X10*3/uL Eos # (Auto) 0.1 (0.0-0.4) X10*3/uL Baso # (Auto) 0.0 (0.0-0.2) X10*3/uL Abs Immat Gran (auto) 0.01 (0.00-0.03) X10*3/uL Absolute Neuts (auto) 3.6 (2.0-8.3) x10*3/uL Absolute Nucleated RBC 0.000 (0.0-0.012) X10*3/uL Nucleated RBC % (auto) 0.0 (0.0-0.2) /100WBC Sodium 143 (135-145) mmol/L Potassium 3.9 (3.3-5.1) mmol/L Chloride 107 (96-108) mmol/L Carbon Dioxide 27 (22-29) mmol/L Anion Gap 13 (12-20) BUN 17 H (9-16) mg/dL Creatinine 0.64 (0.5-1.4) mg/dL Estim Creat Clear Calc 66.0 Estimated GFR > 60 Random Glucose 83 (60-115) mg/dL Lactic Acid 0.7 (0.5-2.0) mmol/L Calcium 9.6 D (8.4-10.2) mg/dL Magnesium 1.9 (1.6-2.6) mg/dL Total Bilirubin 0.8 (0.0-1.0) mg/dL AST 27 (5-31) U/L ALT 28 (0-31) U/L Alkaline Phosphatase 70 D (39-117) U/L Total Protein 6.9 (6.5-8.0) g/dL Albumin 4.2 (3.5-5.0) g/dL Lipase 19 (8-78) U/L Urine Color Urine Appearance Urine pH (5.0-9.0) Ur Specific [place] (1.005-1.025) Urine Protein (Neg-Trace) mg/dL Urine Glucose (UA) (Negative) mg/dL Urine Ketones (Negative) mg/dL Urine Blood (Negative) Urine Nitrite (Negative) Ur Leukocyte Esterase (Negative) 08/18/22 Range/Units 18:45 WBC (4.8-10.8) X10*3/uL RBC (4.20-5.50) X10*6/uL Hgb (12.0-16.0) g/dl Hct (37.0-47.0) % MCV (80.0-98.0) fL MCH (27.0-33.0) pg MCHC (31.0-35.0) g/dl RDW (11.0-16.0) % Plt Count (160-400) X10*3/uL MPV (9.4-12.3) fL Immature Gran % (Auto) (0.0-0.4) % Neut % (Auto) (45-73) % Lymph % (Auto) (20-40) % [place] % (Auto) (2-11) % Eos % (Auto) (0-4) % Baso % (Auto) (0-2) % Lymph # (Auto) (1.2-4.9) X10*3/uL [place] # (Auto) (0.1-1.2) X10*3/uL Eos # (Auto) (0.0-0.4) X10*3/uL Baso # (Auto) (0.0-0.2) X10*3/uL Abs Immat Gran (auto) (0.00-0.03) X10*3/uL Absolute Neuts (auto) (2.0-8.3) x10*3/uL Absolute Nucleated RBC (0.0-0.012) X10*3/uL Nucleated RBC % (auto) (0.0-0.2) /100WBC Sodium (135-145) mmol/L Potassium (3.3-5.1) mmol/L Chloride (96-108) mmol/L Carbon Dioxide (22-29) mmol/L Anion Gap (12-20) BUN (9-16) mg/dL Creatinine (0.5-1.4) mg/dL Estim Creat Clear Calc Estimated GFR Random Glucose (60-115) mg/dL Lactic Acid (0.5-2.0) mmol/L Calcium (8.4-10.2) mg/dL Magnesium (1.6-2.6) mg/dL Total Bilirubin (0.0-1.0) mg/dL AST (5-31) U/L ALT (0-31) U/L Alkaline Phosphatase (39-117) U/L Total Protein (6.5-8.0) g/dL Albumin (3.5-5.0) g/dL Lipase (8-78) U/L Urine Color Yellow Urine Appearance Clear Urine pH 5.5 (5.0-9.0) Ur Specific [place] 1.010 (1.005-1.025) Urine Protein Negative (Neg-Trace) mg/dL Urine Glucose (UA) Negative (Negative) mg/dL Urine Ketones Negative (Negative) mg/dL Urine Blood Negative (Negative) Urine Nitrite Negative (Negative) Ur Leukocyte Esterase Negative (Negative) Critical Care Time Critical Care Time Critical Care Time: No Discharge Plan Discharge Clinical Impression: Left flank pain, Pseudoseizure, Diarrhea, Cystitis Patient Disposition: Home, Self-Care Instructions: Flank Pain (ED) Additional Instructions: Take your medications as prescribed. If you were prescribed antibiotics today, it is important that you take your medication to their entirety, do not skip any doses, do not finish them early. Follow-up with your primary care provider this week. Follow-up with gastroenterology if pain persists. Return to the emergency department with new or worsening symptoms. Such as fevers, chills, chest pain, shortness of breath, nausea, vomiting, dizziness, headache, vision changes, lethargy In case of emergency call 911 CT/CT abdomen pelvis wo IV con IMPRESSION: 1.? A cause for the patient's left flank pain has not been found. 2.? Incidental note made of cholecystectomy, mild prominence of pancreatic duct, prior bowel surgery with left lower quadrant colostomy, resolution of right rectus muscle hematoma and marked distention of the bladder. ? Fleischner guidelines were followed. Prescriptions: New nitrofurantoin monohyd/m-cryst [Macrobid] 100 mg capsule 100 mg PO BID 5 Days Qty: 10 0RF Rx Instructions: must administer with a meal/food loperamide 2 mg capsule 2 mg PO Q6H PRN (Reason: loose stool) Qty: 14 0RF No Action aspirin [Adult Low Dose Aspirin] 81 mg tablet,delayed release (DR/EC) 81 mg PO DAILY loratadine 10 mg tablet 10 mg PO DAILY Qty: 90 1RF budesonide-formoterol 80-4.5 mcg/actuation HFA aerosol inhaler 2 puff inhalation BID Qty: 10.2 2RF simvastatin 40 mg tablet 40 mg PO BEDTIME Qty: 90 1RF Ensure Liquid 1 ea PO TID Qty: 90 0RF duloxetine 60 mg capsule,delayed release(DR/EC) 60 mg PO DAILY Qty: 30 0RF albuterol sulfate 90 mcg/actuation HFA aerosol inhaler 2 puff inhalation Q6H PRN (Reason: for muscle spasm) Qty: 18 1RF levothyroxine 50 mcg tablet 50 mcg PO DAILY Qty: 30 2RF ropinirole 1 mg tablet 1 mg PO DAILY Qty: 30 3RF loperamide 2 mg capsule 2 mg PO NEEDED PRN (Reason: Diarrhea) trazodone 50 mg tablet 1 tab PO BEDTIME ondansetron HCl 4 mg tablet 1 tab PO Q8H PRN (Reason: Nausea And Vomiting) thiamine HCl (vitamin B1) [Vitamin B-1] 100 mg tablet 1 tab PO DAILY amitriptyline 25 mg tablet 1 tab PO BEDTIME magnesium oxide 400 mg (241.3 mg magnesium) tablet 1 tab PO BID diphenhydramine HCl [Banophen] 25 mg Tablet 50 mg PO BEDTIME folic acid 1 mg tablet 1 tab PO DAILY oxybutynin chloride 5 mg tablet 1 tab PO BID cholestyramine (with sugar) 4 gram powder in packet 1 packet PO BID potassium chloride 10 mEq tablet,ER particles/crystals 1 tab PO BID Certavite-Antioxidant 18-400 mg-mcg tablet 1 tab PO DAILY tobramycin sulfate 40 mg/mL solution 240 mg IV Q24H 6 Days Qty: 36 0RF Eliquis 5 mg Tablet 5 mg PO BID Qty: 60 0RF oxycodone 5 mg Tablet 5 mg PO Q6H PRN (Reason: Pain, Severe (Pain Scale 7-10)) Qty: 12 0RF diphenhydramine-0.9 % sod.chlr 25 mg/50 mL piggyback 25 mg IV .Q24 5 Days 0RF Rx Instructions: may repeat once in 30-60 minutes if not effective dicyclomine 20 mg tablet 20 mg PO BID Qty: 60 0RF digoxin 125 mcg (0.125 mg) tablet 125 mcg PO DAILY Qty: 90 0RF Hold Instructions: Doctor's Order levetiracetam 750 mg tablet 750 mg PO BID 30 Days Qty: 60 8RF pantoprazole 40 mg tablet,delayed release (DR/EC) 40 mg PO DAILY Referrals: Bob Camp MD [Primary Care Provider] - 2 days Stand Alone Forms: Work/School Release
[2022-08-18] MEDS: Morphine Sulfate 2 MG/ML CARTRIDGE IVPUSH (16:05)
[2022-08-18 16:30] LABS: MANUAL DIFF FLAG NO
[2022-08-18 16:32] LABS: Basophils Percent Auto 0.5 % (0-2); Eosinophils Absolute Auto 0.1 X10*3/uL (0.0-0.4); Eosinophils Percent Auto 1.2 % (0-4); Hematocrit 36.9 % (37.0-47.0); Hemoglobin 12.3 g/dl (12.0-16.0); Imm Gran Abs Auto 0.01 X10*3/uL (0.00-0.03); Imm Gran Pct Auto 0.2 % (0.0-0.4); Lymphocytes Absolute Auto 1.7 X10*3/uL (1.2-4.9); Lymphocytes Percent Auto 29.8 % (20-40); Mean Corpuscular HGB Conc 33.3 g/dl (31.0-35.0); Mean Corpuscular Hemoglobin 30.8 pg (27.0-33.0); Mean Corpuscular Volume 92.3 fL (80.0-98.0); Mean Platelet Volume 8.9 fL (9.4-12.3); Monocytes Absolute Auto 0.4 X10*3/uL (0.1-1.2); Monocytes Percent Auto 6.4 % (2-11); Neutrophils Absolute Auto 3.6 x10*3/uL (2.0-8.3); Neutrophils Percent Auto 61.9 % (45-73); Platelet Count 294 X10*3/uL (160-400); Red Cell Distribution Width 13.5 % (11.0-16.0); White Blood Count 5.8 X10*3/uL (4.8-10.8)
[2022-08-18 16:43] LABS: Lactic Acid 0.7 mmol/L (0.5-2.0)
[2022-08-18 16:47] LABS: Alanine Aminotransferase 28 U/L (0-31); Albumin Level 4.2 g/dL (3.5-5.0); Alkaline Phosphatase 70 U/L (39-117); Anion Gap 13 (12-20); Aspartate Amino Transferase 27 U/L (5-31); Bilirubin Total 0.8 mg/dL (0.0-1.0); Blood Urea Nitrogen 17 mg/dL (9-16); Calcium 9.6 mg/dL (8.4-10.2); Carbon Dioxide 27 mmol/L (22-29); Chloride 107 mmol/L (96-108); Estimated Glomerular Filt Rate > 60; Glucose Random 83 mg/dL (60-115); Magnesium 1.9 mg/dL (1.6-2.6); Potassium 3.9 mmol/L (3.3-5.1); Sodium 143 mmol/L (135-145); Total Protein 6.9 g/dL (6.5-8.0)
--- NOTE | 2022-08-18 16:50 | PC.NURSE ---
Patient Iv placed in left forearm . medicated with 2mg morphine as ordered by provider for 10 out of 10 abdominal left flank pain . While medicating patient , patient informed me she has history of seizures and said I better get the provider that she saw lights and began to Clench her eyes shut and bear down her fists .. while holding her breath . I asked the Tech to get Gabbi Gutiérrez for assessment and DANIELLE Valentine at bedside with [employer] . After assessments it was determined patient was having a pseudo seizure and not medicated ,remained on cardiac surgeon and bed was at lowest position . patient was transferred to C.T. for images . patient is aware of plan of care .
[2022-08-18 18:04] VITALS: BP 103/60; PULSE 76; RESP 16; O2SAT 97
[2022-08-18 18:14] LABS: Lipase 19 U/L (8-78)
[2022-08-18] MEDS: Loperamide HCl 2 MG CAPSULE PO (18:19)
[2022-08-18] MEDS: HYDROmorphone HCl 2 MG TABLET 1 MG PO (18:19)
[2022-08-18 18:53] LABS: Appearance Urine Clear; Color Urine Yellow; Glucose Urine UA Negative (Negative); Leukocyte Esterase Urine Negative (Negative); Nitrite Urine Negative (Negative); PH 5.5 (5.0-9.0); Urine Blood Negative (Negative); Urine Ketones Negative (Negative); Urine Protein Negative (Neg-Trace)
[2022-08-18 19:43] VITALS: BP 126/69; PULSE 97; RESP 16; TEMP 36.7; O2SAT 98
--- NOTE | 2022-08-18 19:46 | PC.NURSE ---
pt refusing medications on her discharge summary. provider cheryl made aware and a trial dose of macrobid to be given and pt refused and tore up all her papers and is walking out. pt was told to follow up with her primary and she said she fired him. pt is going to find another primary and walked out with a steady giat. alert orientedx4. no s/s of distress.
== END 2022-08-18 20:04 | disposition home or self-care (01) ==
PROVIDERS: Physician Assistant; Emergency Provider Emergency Medicine Emergency Medical Services; PCP Internal Medicine
DX: N30.90 Cystitis, unspecified without hematuria (principal); R56.9 Unspecified convulsions; R10.9 Unspecified abdominal pain; R19.7 Diarrhea, unspecified; I48.0 Paroxysmal atrial fibrillation; Z93.3 Colostomy status; Z85.038 Personal history of other malignant neoplasm of large intestine; Z86.718 Personal history of other venous thrombosis and embolism; Z87.440 Personal history of urinary (tract) infections; Z79.82 Long term (current) use of aspirin; Z79.899 Other long term (current) drug therapy; Z79.01 Long term (current) use of 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
CPT/HCPCS: 36415; 51701; 74176; 80053; 81003; 83605; 83690; 83735; 85025; 87040; 96374; 99284; 99285; J2270

== ENCOUNTER → 2023-03-21 08:45 | Outpatient (BNVA) | payer MEDICARE, MEDICAID, SELFPAY | PROVIDERS: PCP Internal Medicine; Visit Provider Anesthesiology | DX: C18.9 Malignant neoplasm of colon, unspecified (principal); R10.9 Unspecified abdominal pain; K52.9 Noninfective gastroenteritis and colitis, unspecified; M54.50 Low back pain, unspecified; F44.9 Dissociative and conversion disorder, unspecified; G89.29 Other chronic pain | CPT/HCPCS: 99202 ==

== ENCOUNTER 2023-06-12 23:05 | Emergency (ER) | payer MEDICARE, MEDICAID, SELFPAY ==
--- NOTE | ~2023-06-12 | XR_ITS ---
EXAMINATION: XR HUMERUS, RIGHT XR ELBOW, RIGHT CLINICAL INDICATION: Pain COMPARISON: None TECHNIQUE: 2 views of the right humerus. 2 views of the right elbow. FINDINGS: Glenohumeral alignment is anatomic. The acromioclavicular joint is intact with mild degenerative change. Alignment across the elbow is anatomic. No fracture identified in the humerus or elbow. No appreciable elbow effusion. XR/XR elbow RT 2V IMPRESSION: No acute findings identified in the right humerus or elbow.
--- NOTE | ~2023-06-12 | XR_ITS ---
EXAMINATION: XR PELVIS CLINICAL INFORMATION: Pain at the left upper gluteus with contusion, fall COMPARISON: CT 08/18/2022 TECHNIQUE: AP view of the pelvis. FINDINGS: Alignment across the hips is anatomic with slight joint space narrowing bilaterally. There are linear lucencies overlying the left inferior pubic ramus and ischial tuberosity which could be due to overlying superimposed soft tissues, though the presence of some nondisplaced fracture lines cannot be entirely excluded. Sacroiliac joints and pubic symphysis appear intact. Multiple clips and suture lines are present in the pelvis. XR/XR pelvis 1-2V IMPRESSION: Linear lucencies overlying the left inferior pubic ramus and ischial tuberosity could be due to overlying soft tissues, though the presence of some nondisplaced fracture lines is difficult to entirely exclude.
--- NOTE | ~2023-06-12 | CT_ITS ---
EXAMINATION: CT head/brain wo IV con, CT cervical spine wo IV con INDICATION INFORMATION: Reason for Exam Fall on Eliquis COMPARISON: Fall TECHNIQUE: Separate noncontrast CT examinations of the head and cervical spine were performed. Coronal and sagittal images were created for each examination at the technologist workstation. This CT examination was performed using dose optimization techniques as appropriate, variously including the following: *Automated exposure control *Adjustment of mA and/or kV according to patient size (this includes techniques or standardized protocols for targeted exams where dose is matched to indication/reason for exam; i.e. extremities or head) *Use of iterative reconstruction technique DLP: 766 mGy-cm FINDINGS: Head: Somewhat technically limited examination secondary to streak artifact related to ear piercings No acute osseous or soft tissue abnormality. The mastoid air cells and visualized portions of the paranasal sinuses are well aerated. There is no evidence of acute intracranial hemorrhage or territorial infarction. No abnormal mass effect or midline shift is seen. [place] to white matter differentiation is well preserved. No extra-axial fluid collections are identified. No hydrocephalus. No significant volume loss. Patchy periventricular and deep white matter hypoattenuation is consistent with mild small vessel ischemic changes. Cervical spine: There is no evidence of acute cervical spine fracture. Vertebral bodies remain normal in height. Loss of the usual cervical spine lordosis. Multilevel loss of disc space height. No pre- or paravertebral soft tissue abnormality is identified. Dense sclerosis in the right aspect of the C4 vertebral body likely represents an enostosis. Visualized portions of the lung apices are unremarkable. The thyroid gland is unremarkable. CT/CT cervical spine wo IV con IMPRESSION: 1. Somewhat technically limited CT of the head secondary to streak artifact related to ear piercings. Within this limitation, no acute intracranial abnormality. 2. No cervical spine fracture or traumatic malalignment.
--- NOTE | ~2023-06-12 | XR_ITS ---
EXAMINATION: XR HUMERUS, RIGHT XR ELBOW, RIGHT CLINICAL INDICATION: Pain COMPARISON: None TECHNIQUE: 2 views of the right humerus. 2 views of the right elbow. FINDINGS: Glenohumeral alignment is anatomic. The acromioclavicular joint is intact with mild degenerative change. Alignment across the elbow is anatomic. No fracture identified in the humerus or elbow. No appreciable elbow effusion. XR/XR humerus RT IMPRESSION: No acute findings identified in the right humerus or elbow.
[2023-06-12 23:18] VITALS: BP 119/74; PULSE 74; RESP 18; TEMP 37.1; O2SAT 98; BMI 23.0
--- NOTE | 2023-06-13 00:38 | ED_ITS ---
HPI - Fall General Chief Complaint: Fall Stated Complaint: fall w/ head strike Time Seen by Provider: 06/12/23 23:36 Source: patient Mode of arrival: ambulatory History of Present Illness HPI Narrative: This is a 67-year-old female who is on chronic anticoagulation and states that earlier in the evening she was knocked over by her autistic rate grandson and she fell backwards striking the back of her head on pavement and now reports low er back/pelvis pain as well as right elbow pain. She denies any loss of consciousness. Related Data Home Medications Medication Instructions Recorded Confirmed pantoprazole 40 mg tablet,delayed 40 mg PO DAILY 12/22/21 03/21/23 release amitriptyline 25 mg tablet 1 tab PO BEDTIME 01/07/22 03/21/23 cholestyramine (with sugar) 4 gram 1 packet PO BID 01/07/22 03/21/23 powder for susp in a packet diphenhydramine HCl 25 mg tablet 50 mg PO BEDTIME 01/07/22 03/21/23 (Banophen) folic acid 1 mg tablet 1 tab PO DAILY 01/07/22 03/21/23 loperamide 2 mg capsule 2 mg PO NEEDED PRN Diarrhea 01/07/22 03/21/23 magnesium oxide 400 mg (241.3 mg 1 tab PO BID 01/07/22 03/21/23 magnesium) tablet multivitamin-ferrous 1 tab PO DAILY 01/07/22 03/21/23 fumarate-folic acid 18 mg-400 mcg tablet (Certavite-Antioxidant) oxybutynin chloride 5 mg tablet 1 tab PO BID 01/07/22 03/21/23 potassium chloride 10 mEq 1 tab PO BID 01/07/22 03/21/23 tablet,extended release(part/cryst) thiamine HCl (vitamin B1) 100 mg 1 tab PO DAILY 01/07/22 03/21/23 tablet (Vitamin B-1) trazodone 50 mg tablet 1 tab PO BEDTIME 01/07/22 03/21/23 Previous Rx's Medication Instructions Recorded dicyclomine 20 mg tablet 20 mg PO BID #60 tabs 08/11/21 budesonide-formoterol HFA 80 2 puff inhalation BID #10.2 grams 01/03/22 mcg-4.5 mcg/actuation aerosol inhaler loratadine 10 mg tablet 10 mg PO DAILY #90 tabs 01/03/22 tobramycin sulfate 40 mg/mL 240 mg (6 mL) IV Q24H 6 days #36 mL 01/11/22 injection solution diphenhydramine HCl 25 mg/50 mL in 25 mg (50 mL) IV .Q24 before IV 01/12/22 0.9 % sodium chloride IV piggyback medication 5 days duloxetine 60 mg capsule,delayed 60 mg PO DAILY #30 caps 02/16/22 release albuterol sulfate 90 mcg/actuation 2 puff inhalation Q6H PRN for 04/06/22 aerosol inhaler muscle spasm #18 grams ropinirole 1 mg tablet 1 mg PO DAILY #30 tabs 07/05/22 apixaban 5 mg tablet (Eliquis) 5 mg PO BID 30 days #60 tabs 01/16/23 food supplemt, lactose-reduced See Rx Instructions PO TID 30 days 01/16/23 (Ensure oral liquid) #90 multiple units levothyroxine 50 mcg tablet 50 mcg PO DAILY #90 tabs 01/16/23 simvastatin 40 mg tablet 40 mg PO BEDTIME #90 tabs 01/16/23 levetiracetam 750 mg tablet 750 mg PO BID 30 days #60 tabs 03/21/23 digoxin 125 mcg (0.125 mg) tablet 125 mcg PO DAILY #90 tabs 04/10/23 colostomy bags #5 ea 04/16/23 colostomy supplies #1 ea 04/16/23 Allergies Allergy/AdvReac Type Severity Reaction Status Date / Time erythromycin base Allergy Severe Anaphylaxis Verified 03/21/23 11:30 [ERYTHROMYCIN BASE] levofloxacin [From Levaquin] Allergy Severe Anaphylaxis Verified 03/21/23 11:30 Penicillins [PCN] Allergy Severe Anaphylaxis Verified 03/21/23 11:30 seafood Allergy Severe Anaphylaxis Verified 03/21/23 11:30 Sulfa (Sulfonamide Allergy Severe Anaphylaxis, Verified 03/21/23 11:30 Antibiotics) vomiting [SULFA (SULFONAMIDE ANTIBIOTICS)] Tetracyclines Allergy Severe Anaphylaxis Verified 03/21/23 11:30 divalproex sodium [Depakote] Allergy Unknown altered Verified 03/21/23 11:30 mental status gluten [GLUTEN] Allergy Unknown BLOATING,RA Verified 03/21/23 11:30 SH rice Allergy Unknown Verified 03/21/23 11:30 Review of Systems Review of Systems: Pertinent positives and negatives as stated in HPI [facility] Past Medical History Source: nursing notes reviewed Medical History Pulmonary embolism Degenerative cervical disc Lumbar disc disease Celiac disease Pure hypercholesterolemia Epilepsy Hypothyroidism COPD (chronic obstructive pulmonary disease) Pseudoseizure Conversion disorder Colon cancer Paroxysmal A-fib Allergy to multiple drugs Deep vein thrombosis Surgical History History of arthroplasty History of hysterectomy (~1979) Hx of cholecystectomy S/P IVC filter History of partial surgical removal of colon History of partial gastrectomy History of colectomy History of colostomy reversal History of bladder surgery History of sinus surgery History of facial surgery History of colonoscopy Family History Family History Mother CAD (coronary artery disease) Other Mental health disorder Social History Social History Household Members: Other Household Members Other:: 3 roommates Housing: House Do you presently have visiting nurse or other home services: Yes Alcohol intake: former Patient Tobacco Use Status: Never used Tobacco e-Cigarette/Vaping Use: Never Used Second Hand Smoke Exposure: Yes service: No Current occupational status: disabled Cognitive needs: Yes (cane) Hearing needs: No Vision needs: Yes (Glasses) Physical Exam Vital Signs: Vital Signs: Last Vital Signs Temp 98.8 F 06/12/23 23:18 Pulse 74 06/12/23 23:18 Resp 18 06/12/23 23:18 BP 119/74 06/12/23 23:18 Pulse Ox 98 06/12/23 23:18 O2 Del Method Room Air 06/12/23 23:18 BMI result Body Mass Index 23.0 VITAL SIGNS: Reviewed. GENERAL: Well developed, well nourished, in no acute distress. HEAD: Normocephalic/atraumatic EYES: PERRLA, EOMI EARS: Ext canals without abnormality NOSE: Nares patent bilateral OROPHARYNX: no oral lesions noted, posterior pharynx clear NECK: Supple, no adenopathy LUNGS: Normal breath sounds. No adventitious sounds or accessory muscle use. SpO2<98> CARDIOVASCULAR: Regular rate and rhythm without noted murmurs ABDOMEN: Soft, non-tender, non-distended with bowel sounds. PELVIS: Stable, nontender, there is a small contusion to the left superior aspect of the gluteal cleft MUSCULOSKELETAL: No tenderness, deformities, or effusions noted on gross inspection. EXTREMITIES: No cyanosis, clubbing or edema. RIGHT ELBOW: There is a contusion to the right elbow without obvious deformity, neurovascularly intact distal SKIN: Inspection of the skin reveals no rashes NEUROLOGIC: Alert and oriented x 4. Strength and sensation to light touch were grossly intact x 4. Medical Decision Making Medical Decision Making MDM Narrative: This is a 67-year-old female with history and clinical presentation without focal deficits, will evaluate with CT head/cervical spine/right elbow and humerus, as well as pelvis to rule out any intracranial hemorrhage or bony fractures. Patient provided with combination analgesics. CT scan of head negative for intracranial hemorrhage and CT of C-spine is negative for fracture or subluxation. Patient is otherwise discharged home with soft tissue contusions. Differential Diagnosis Differential Diagnoses: The differential diagnosis associated with the presentation includes Please see the discussion above Admission/Observation Consideration of admission/observation: Escalation of care including admission/observation considered Please see the discussion above Radiology Impression Discussion of test interpretation with radiology: I have reviewed the radiologist's reading. Radiologist Impression: Please see the discussion above External Record Review External record reviewed: Outpatient record, Prior outpatient labs and Prior outpatient radiology Discharge Plan Discharge Clinical Impression: Fall, Contusion of soft tissue Patient Disposition: Home, Self-Care Instructions: Fall Prevention (ED), Contusion in Adults (ED) Additional Instructions: 1. Resume all home medications as prescribed. 2. Recommend [id number] Tylenol for pain. 3. Follow-up with your primary care provider in the morning. Return to the ER for any worsening symptoms. Prescriptions: No Action loratadine 10 mg tablet 10 mg PO DAILY Qty: 90 1RF budesonide-formoterol 80-4.5 mcg/actuation HFA aerosol inhaler 2 puff inhalation BID Qty: 10.2 2RF duloxetine 60 mg capsule,delayed release(DR/EC) 60 mg PO DAILY Qty: 30 0RF albuterol sulfate 90 mcg/actuation HFA aerosol inhaler 2 puff inhalation Q6H PRN (Reason: for muscle spasm) Qty: 18 1RF ropinirole 1 mg tablet 1 mg PO DAILY Qty: 30 3RF digoxin 125 mcg (0.125 mg) tablet 125 mcg PO DAILY Qty: 90 0RF Hold Instructions: Doctor's Order (DME) colostomy bags Misc See Rx Instructions .Route Qty: 5 5RF Rx Instructions: As directed (DME) colostomy supplies See Rx Instructions .Route .MEDSUPPLY Qty: 1 11RF Rx Instructions: As directed loperamide 2 mg capsule 2 mg PO NEEDED PRN (Reason: Diarrhea) trazodone 50 mg tablet 1 tab PO BEDTIME thiamine HCl (vitamin B1) [Vitamin B-1] 100 mg tablet 1 tab PO DAILY amitriptyline 25 mg tablet 1 tab PO BEDTIME magnesium oxide 400 mg (241.3 mg magnesium) tablet 1 tab PO BID diphenhydramine HCl [Banophen] 25 mg Tablet 50 mg PO BEDTIME folic acid 1 mg tablet 1 tab PO DAILY oxybutynin chloride 5 mg tablet 1 tab PO BID cholestyramine (with sugar) 4 gram powder in packet 1 packet PO BID potassium chloride 10 mEq tablet,ER particles/crystals 1 tab PO BID Certavite-Antioxidant 18-400 mg-mcg tablet 1 tab PO DAILY tobramycin sulfate 40 mg/mL solution 240 mg IV Q24H 6 Days Qty: 36 0RF diphenhydramine-0.9 % sod.chlr 25 mg/50 mL piggyback 25 mg IV .Q24 5 Days 0RF Rx Instructions: may repeat once in 30-60 minutes if not effective Eliquis 5 mg tablet 5 mg PO BID 30 Days Qty: 60 3RF Ensure Liquid See Rx Instructions PO TID 30 Days Qty: 90 3RF Rx Instructions: 1 can orally 3 times a day; levothyroxine 50 mcg tablet 50 mcg PO DAILY Qty: 90 1RF simvastatin 40 mg tablet 40 mg PO BEDTIME Qty: 90 1RF levetiracetam 750 mg tablet 750 mg PO BID 30 Days Qty: 60 3RF dicyclomine 20 mg tablet 20 mg PO BID Qty: 60 0RF pantoprazole 40 mg tablet,delayed release (DR/EC) 40 mg PO DAILY
[2023-06-13 00:55] VITALS: BP 108/66; PULSE 66; RESP 16; TEMP 36.8; O2SAT 98
--- NOTE | 2023-06-13 01:03 | PC.NURSE ---
Pt declined Tylenol and Motrin as pt reports unable to tolerate these meds. aware.
--- NOTE | 2023-06-13 01:26 | PC.NURSE ---
Ayan wrap applied to the right arm. Pt tolerated well.
== END 2023-06-13 01:28 | disposition home or self-care (01) ==
LOC: HO.ED 06-13 01:07
PROVIDERS: Emergency Provider Student in an Organized Health Care Education/Training Program
DX: S00.93XA Contusion of unspecified part of head, initial encounter (principal); M54.50 Low back pain, unspecified; R10.2 Pelvic and perineal pain; R51.9 Headache, unspecified; M54.2 Cervicalgia; M79.601 Pain in right arm; W01.10XA Fall on same level from slipping, tripping and stumbling with subsequent striking against unspecified object, initial encounter; Y93.9 Activity, unspecified; Y92.9 Unspecified place or not applicable; Y99.9 Unspecified external cause status; Z79.899 Other long term (current) drug therapy
CPT/HCPCS: 70450; 72125; 72170; 73060; 73070; 99284

== ENCOUNTER 2023-07-05 12:37 | Outpatient (AMB) | payer MEDICARE, SELFPAY ==
[2023-07-05 12:48] VITALS: BP 108/64; PULSE 77; O2SAT 98; BMI 23.2
--- NOTE | 2023-07-05 12:48 | A.OFFPC_ITS ---
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 Allergies erythromycin base [ERYTHROMYCIN BASE] Allergy (Severe, Verified 07/05/23 14:06) Anaphylaxis levofloxacin [From Levaquin] Allergy (Severe, Verified 07/05/23 14:06) Anaphylaxis Penicillins [PCN] Allergy (Severe, Verified 07/05/23 14:06) Anaphylaxis seafood Allergy (Severe, Verified 07/05/23 14:06) Anaphylaxis Sulfa (Sulfonamide Antibiotics) [SULFA (SULFONAMIDE ANTIBIOTICS)] Allergy (Severe, Verified 07/05/23 14:06) Anaphylaxis, vomiting Tetracyclines Allergy (Severe, Verified 07/05/23 14:06) Anaphylaxis divalproex sodium [Depakote] Allergy (Unknown, Verified 07/05/23 14:06) altered mental status gluten [GLUTEN] Allergy (Unknown, Verified 07/05/23 14:06) BLOATING,RASH rice Allergy (Verified 07/05/23 14:06) Unknown Medication List - Last Reconciled 07/05/23 by CYNTHIA Thomas albuterol sulfate 90 mcg/actuation 2 puffs inhalation Q6H PRN amitriptyline 1 tab PO BEDTIME apixaban (Eliquis) 5 mg PO BID 30 days budesonide-formoterol 80-4.5 mcg/actuation 2 puffs inhalation BID cholestyramine (with sugar) 4 gram 1 packet PO BID colostomy bags As directed [colostomy supplies As directed] dicyclomine 20 mg PO BID digoxin 125 mcg PO DAILY diphenhydramine HCl (Banophen) 50 mg PO BEDTIME diphenhydramine-0.9 % sod.chlr 25 mg/50 mL 25 mg (50 mL) IV .Q24 5 days duloxetine 60 mg PO DAILY folic acid 1 tab PO DAILY food supplemt, lactose-reduced (Ensure oral liquid) 1 can orally 3 times a day; 30 days levetiracetam 750 mg PO BID 30 days levothyroxine 50 mcg PO DAILY loperamide 2 mg PO NEEDED PRN loratadine 10 mg PO DAILY magnesium oxide 1 tab PO BID kuqjqpqnjdor-kkmd-fghuy acid 18-400 mg-mcg (Certavite-Antioxidant) 1 tab PO DAILY oxybutynin chloride 1 tab PO BID pantoprazole 40 mg PO DAILY potassium chloride ER 1 tab PO BID ropinirole 1 mg PO DAILY simvastatin 40 mg PO BEDTIME thiamine HCl (vitamin B1) (Vitamin B-1) 1 tab PO DAILY tobramycin sulfate 240 mg (6 mL) IV Q24H 6 days trazodone 1 tab PO BEDTIME Tobacco use date assessed: 07/05/23 Fall risk assessment: 1 Fall in past year Last assessed Fall Risk: 07/05/23 HPI chronic back pain 2 HPI0 Details Patient is a 67-year-old female presents today to follow-up on her chronic conditions. Patient of Dr. Camp, last seen by Dr. Wright 12/2022. Patient was encouraged to complete blood work that was ordered by Dr. Wright in the past. Medical history significant for hypothyroid-reports was seen by [facility] Endocrinology-reports need to continue seen PCP for medication management, pseudoseizure/epilepsy - reports seizure 2 days ago-followed by Neurology at [facility]-encouraged patient to notify Neurology about recent seizure-patient is on Keppra b.i.d., AFib-followed by [facility] cardiology on yearly basis, chronic abdominal pain-reports food just goes through her - has colostomy for the past 36 years due to history of stomach and colon cancer-will refer to GI and Oncology, patient reports seeing Oncology about 7 years ago in [place], [facility], also reports pain in both feet-reports history of foot cancer in the past-would like to be seen by Podiatry, also reports abdominal hernia which is painful-reports hernia surgery in the past. No shortness of breath or chest pain. She did have a fall about 10 days ago, she did go to [facility] and was diagnosed with contusion of soft tissue, reports tailbone pain, reports taking aleve - patient is not to take aleve due to being on Eliquis, she can try Tylenol 650 mg every 6 hours as needed instead. 05/2023 XR/XR pelvis 1-2V IMPRESSION: Linear lucencies overlying the left inferior pubic ramus and ischial tuberosity could be due to overlying soft tissues, though the presence of some nondisplaced fracture lines is difficult to entirely exclude. [facility] Medical History (Updated 07/05/23 @ 17:31 by CYNTHIA Thomas) Primary cancer of foot Pulmonary embolism Degenerative cervical disc Lumbar disc disease Celiac disease Pure hypercholesterolemia Epilepsy Hypothyroidism COPD (chronic obstructive pulmonary disease) Pseudoseizure Conversion disorder Colon cancer Paroxysmal A-fib Allergy to multiple drugs Deep vein thrombosis Surgical History History of arthroplasty History of hysterectomy (~1979) Hx of cholecystectomy S/P IVC filter History of partial surgical removal of colon History of partial gastrectomy History of colectomy History of colostomy reversal History of bladder surgery History of sinus surgery History of facial surgery History of colonoscopy Family History Mother CAD (coronary artery disease) Other Mental health disorder Social History Household Members: Other Household Members Other:: 3 roommates Housing: House Do you presently have visiting nurse or other home services: Yes Alcohol intake: former Patient Tobacco Use Status: Never used Tobacco e-Cigarette/Vaping Use: Never Used Second Hand Smoke Exposure: Yes service: No Current occupational status: disabled Cognitive needs: Yes (cane) Hearing needs: No Vision needs: Yes (Glasses) Questionnaire PHQ-9 Over the last 2 weeks, how often have you been bothered by any of the following problems? 1. Little interest or pleasure in doing things: not at all 2. Feeling down, depressed, or hopeless: not at all 3. Trouble falling or staying asleep, or sleeping too much: not at all 4. Feeling tired or having little energy: not at all 5. Poor appetite or overeating: not at all 6. Feeling bad about yourself - or that you are a failure or have let yourself or your family down: not at all 7. Trouble concentrating on things, such as reading the newspaper or watching television: not at all 8. Moving or speaking so slowly that other people could have noticed. Or the opposite - being so fidgety or restless that you have been moving around a lot more than usual: not at all 9. Thoughts that you would be better off or of hurting yourself in some way: not at all Total score: 0 Depression Screening Interpretation: Negative Depression Screening Done: Yes 87083 - PHQ-9 Billing: Yes Source: Developed by Drs. Ranjit Valdovinos, Saud Mora and colleagues, with an educational lionel from [employer]. Thrive Questionnaire Date Thrive assessed: 01/16/23 AUDIT C Alcohol Use Questionnaire (AUDIT-C) 1. How often do you have a drink containing alcohol?: Never Total Score: 0 Score Reviewed/Action Taken: No EARNESTINE-7 AMB Questionnaire EARNESTINE-7 Date EARNESTINE - 7 assessed: 07/05/23 Feeling nervous, anxious, or on edge: 1 = Several days Not being able to stop or control worryin = Not at all Worrying too much about different things: 0 = Not at all Trouble relaxin = Not at all Being so restless that it is hard to sit still: 0 = Not at all Becoming easily annoyed or irritable: 0 = Not at all Feeling afraid as if something awful might happen: 0 = Not at all Total EARNESTINE-7 score (0-4 normal; 5-9 mild; 10-14 moderate; 15-21 severe): 1 Source: Developed by Drs. Ranjit Valdovinos, Anila Baldwin, Saud Allison and colleagues, with an educational lionel from [employer]. EARNESTINE-7 Assessment Billing EARNESTINE-7 Assessment Tool: EARNESTINE-7 Assessment 12374 Review of Systems Const Denies body aches, Denies chills, Denies fever(s) and Denies headache(s) Eyes Denies change in vision ENT Denies dizziness, Denies otalgia, Denies headache(s), Denies nasal discharge, Denies sinus pain and Denies sore throat Card Denies chest pain, Denies edema, Denies lightheadedness and Denies dyspnea Resp Denies dyspnea and Denies wheezing GI Reports as per HPI, Reports abdominal pain, Denies constipation, Denies diarrhea, Denies nausea and Denies vomiting Denies dysuria Musc Reports as per HPI, Reports back pain and Denies myalgias Skin/Breast Reports as per HPI and Denies rash Neuro Denies dizziness and Denies headache(s) Aller/Immun Denies wheezing Physical exam (Primary Care) Vital Signs: Last Vital Signs Pulse 77 07/05/23 12:48 BP 108/64 07/05/23 12:48 Pulse Ox 98 07/05/23 12:48 Oxygen Delivery Method Room Air 07/05/23 12:48 BMI result Body Mass Index 23.2 Tobacco/Smoking Status: Tobacco use Status Tobacco use date assessed 07/05/23 07/05/23 12:50 Patient Tobacco Use Status Never used Tobacco 07/05/23 12:48 e-Cigarette/Vaping Use Never Used 07/05/23 12:48 PHQ-9: PHQ-9 Score PHQ-9: Total score 0 07/05/23 14:30 Depression Screening Interpretation: Negative Thrive Assessment: Date of Thrive Assessment Date Thrive assessed 01/16/23 07/05/23 12:48 Const General: cooperative and no acute distress Orientation/consciousness: patient oriented x3 HENMT Head: Yes normocephalic and Yes atraumatic Face and sinus: Yes sinuses nontender Mouth: oropharynx normal and moist mucous membranes Throat: Yes posterior oropharynx normal Eyes General: appearance normal, both eyes and all related structures Neck Neck: Yes normal visual inspection, Yes full ROM and Yes no lymphadenopathy Resp Effort & Inspection: normal respiratory effort and able to speak in complete sentences Auscultation: clear to auscultation bilaterally, no crackles, no rales, no rhonchi and no wheezes Cardio Rate: regular rate Rhythm: regular rhythm Heart sounds: S1 normal heart sound present and S2 normal heart sound present GI Other: Colostomy present Palpation (GI): Soft to palpation, not firm, no guarding, not rigid and no hepatosplenomegaly Auscultation: normal bowel sounds Abdomen image: 2 1. Bulging area noted, tenderness to palpation, patient reports hernia surgery in the past Back/Spine/Pelvis Thoracic/Lumbar Spine: No paraspinal muscle tenderness, No thoracic spinal tenderness and lumbar spinal tenderness Skin Other: Left great toe with slightly brown discoloration Neuro General: patient oriented x3 Gait exam (Neuro): Normal gait present Extrem General: Yes full ROM and No edema Assessment and Plan Assessment & Plan (1) Low back pain: Code(s): M54.50 - Low back pain, unspecified Plan: Provide patient with lidocaine patch daily p.r.n. She can try [id number] Tylenol 650 mg every 6 hours as needed (2) History of gastric cancer: Code(s): Z85.028 - Personal history of other malignant neoplasm of stomach Plan: Oncology referral for an evaluation and treatment, patient was seen by Oncology in the past (3) History of colon cancer: Code(s): Z85.038 - Personal history of other malignant neoplasm of large intestine Plan: Oncology referral for an evaluation and treatment, patient was seen by Oncology in the past (4) Pain in both feet: Code(s): M79.671 - Pain in right foot; M79.672 - Pain in left foot Plan: Podiatry referral (5) Abdominal hernia: Code(s): K46.9 - Unspecified abdominal hernia without obstruction or gangrene Plan: General surgery referral for an evaluation and treatment (6) Pure hypercholesterolemia: Code(s): E78.00 - Pure hypercholesterolemia, unspecified Plan: Continue simvastatin Low-cholesterol diet Patient was encouraged to complete her blood work (7) Hypothyroidism: Code(s): E03.9 - Hypothyroidism, unspecified Qualifiers: Hypothyroidism type: acquired Qualified Code(s): E03.9 - Hypothyroidism, unspecified Plan: Continue to follow-up with [facility] endocrinology Continue levothyroxine Patient was encouraged to complete her blood work (8) Pseudoseizure: Code(s): F44.5 - Conversion disorder with seizures or convulsions Plan: Continue to follow-up with [facility] Neurology Continue Keppra (9) Paroxysmal A-fib: Code(s): I48.0 - Paroxysmal atrial fibrillation Plan: Continue to follow-up with [facility] cardiology Continue Eliquis and digoxin Patient was encouraged to complete her blood work (10) COPD (chronic obstructive pulmonary disease): Code(s): J44.9 - Chronic obstructive pulmonary disease, unspecified Plan: Stable Continue current inhalers as prescribed (11) Chronic abdominal pain: Code(s): R10.9 - Unspecified abdominal pain; G89.29 - Other chronic pain Plan: GI referral for an evaluation and treatment Plan Follow-up with PCP in 3 months or sooner as needed Patient was encouraged to complete her blood work Orders: Referrals 2 Podiatry Referral M79.671 - Pain in right foot, M79.672 - Pain in left foot Hematology & Oncology Referral C76.50 - Malignant neoplasm of unspecified lower limb, Z85.028 - Personal history of other malignant neoplasm of stomach, Z85.038 - Personal history of other malignant neoplasm of large intestine Gastroenterology Referral G89.29 - Other chronic pain, R10.9 - Unspecified abdominal pain General Surgery Referral K46.9 - Unspecified abdominal hernia without obstruction or gangrene Medications: New 2 lidocaine 4% (Aspercreme (lidocaine)) 1 patch topical DAILY PRN 30 ea 0RF pain M54.50 - Low back pain, unspecified Refilled 2 apixaban (Eliquis) 5 mg PO BID 30 days 60 tabs 3RF levothyroxine 50 mcg PO DAILY 90 tabs 1RF digoxin 125 mcg PO DAILY 90 tabs 0RF levetiracetam 750 mg PO BID 30 days 60 tabs 3RF simvastatin 40 mg PO BEDTIME 90 tabs 1RF albuterol sulfate 90 mcg/actuation 2 puffs inhalation Q6H PRN 18 grams 1RF for muscle spasm budesonide-formoterol 80-4.5 mcg/actuation 2 puffs inhalation BID 10.2 grams 2RF Coding Level of Care Code Est Pt Level 4 (38014) Diagnoses Low back pain M54.50 History of gastric cancer Z85.028 History of colon cancer Z85.038 Pain in both feet M79.671; M79.672 Abdominal hernia K46.9 Pure hypercholesterolemia E78.00 Acquired hypothyroidism E03.9 Hypothyroidism type: acquired Pseudoseizure F44.5 Paroxysmal A-fib I48.0 COPD (chronic obstructive pulmonary disease) J44.9 Chronic abdominal pain R10.9; G89.29 Additional Codes EARNESTINE-7 Assessment Billing - EARNESTINE-7 Assessment Tool: EARNESTINE-7 Assessment 40830 ([id number])
== END 2023-07-05 14:51 | disposition home or self-care (01) ==
PROVIDERS: PCP Internal Medicine; Visit Provider Nurse Practitioner Family
DX: M54.50 Low back pain, unspecified (principal); K46.9 Unspecified abdominal hernia without obstruction or gangrene; E78.00 Pure hypercholesterolemia, unspecified; J44.9 Chronic obstructive pulmonary disease, unspecified
CPT/HCPCS: 99214

== ENCOUNTER 2023-07-13 08:31 | Outpatient (REF) | payer MEDICARE, MEDICAID, SELFPAY ==
[2023-07-13 08:55] LABS: MANUAL DIFF FLAG NO
[2023-07-13 09:43] LABS: Eosinophils Absolute Auto 0.1 X10*3/uL (0.0-0.4); Eosinophils Percent Auto 2.6 % (0-4); Hematocrit 35.6 % (37.0-47.0); Hemoglobin 11.9 g/dl (12.0-16.0); Imm Gran Abs Auto 0.02 X10*3/uL (0.00-0.03); Imm Gran Pct Auto 0.5 % (0.0-0.4); Lymphocytes Absolute Auto 1.6 X10*3/uL (1.2-4.9); Lymphocytes Percent Auto 41.5 % (20-40); Mean Corpuscular HGB Conc 33.4 g/dl (31.0-35.0); Mean Corpuscular Hemoglobin 30.4 pg (27.0-33.0); Mean Platelet Volume 10.3 fL (9.4-12.3); Monocytes Absolute Auto 0.3 X10*3/uL (0.1-1.2); Monocytes Percent Auto 8.4 % (2-11); Neutrophils Absolute Auto 1.8 x10*3/uL (2.0-8.3); Platelet Count 237 X10*3/uL (160-400); Red Blood Count 3.91 X10*6/uL (4.20-5.50); Red Cell Distribution Width 13.3 % (11.0-16.0); White Blood Count 3.8 X10*3/uL (4.8-10.8)
[2023-07-13 10:16] LABS: Digoxin < 0.2 ng/mL (0.8-2.0)
[2023-07-13 10:18] LABS: Alanine Aminotransferase 18 U/L (0-31); Alkaline Phosphatase 83 U/L (39-117); Anion Gap 14 (12-20); Aspartate Amino Transferase 25 U/L (5-31); Bilirubin Total 0.8 mg/dL (0.0-1.0); Blood Urea Nitrogen 19 mg/dL (9-16); Carbon Dioxide 20 mmol/L (22-29); Chloride 107 mmol/L (96-108); Cholesterol 173 mg/dL (<200); Estimated Glomerular Filt Rate > 60; Glucose Fasting 81 mg/dL (60-99); HDL Cholesterol 65 mg/dL (>40); LDL Cholesterol Calculated 97 mg/dL (<100); Potassium 4.4 mmol/L (3.3-5.1); Sodium 137 mmol/L (135-145); Total Protein 7.1 g/dL (6.5-8.0); Triglycerides 56 mg/dL (<150)
[2023-07-13 10:38] LABS: Appearance Urine Cloudy; Color Urine Yellow; Glucose Urine UA Negative (Negative); Leukocyte Esterase Urine Moderate (2+) (Negative); Nitrite Urine Positive (Negative); UMIC TRIGGER UACC YES; Urine Blood Moderate (2+) (Negative); Urine Ketones Negative (Negative); Urine Protein Trace mg/dL (Neg-Trace)
[2023-07-13 10:39] LABS: Free T4 (Free Thyroxine) 0.91 ng/dL (0.71-1.85); Thyroid Stimulating Hormone 0.86 uIU/mL (0.32-4.0)
[2023-07-13 11:15] LABS: RBC Urine 0-2 /HPF (0-2); UACC Culture Trigger YES; WBC Urine >50 /HPF (0-5)
[2023-07-13 11:16] LABS: Bacteria Urine 3+ (None Seen); Hyaline Casts Urine 0-2 /LPF (0-2)
[2023-07-17 18:59] LABS: Levetiracetam Keppra <2.0 mcg/mL (6.0-46.0)
== END 2023-07-13 08:32 | disposition home or self-care (01) ==
LOC: HO.LAB 08:31
PROVIDERS: PCP Internal Medicine; Visit Provider Internal Medicine
DX: I11.0 Hypertensive heart disease with heart failure (principal); I50.20 Unspecified systolic (congestive) heart failure; E03.9 Hypothyroidism, unspecified; G40.909 Epilepsy, unspecified, not intractable, without status epilepticus; E78.00 Pure hypercholesterolemia, unspecified; R10.9 Unspecified abdominal pain; Z79.899 Other long term (current) drug therapy
CPT/HCPCS: 36415; 80053; 80061; 80162; 80177; 81001; 84439; 84443; 85025; 87086; 87088; 87186

== ENCOUNTER 2023-07-13 09:53 | Outpatient (AMB) | payer MEDICARE, MEDICAID, SELFPAY ==
[2023-07-13 10:01] VITALS: BP 117/67; PULSE 80; BMI 23.0
--- NOTE | 2023-07-13 10:01 | A.OFFVIS_ITS ---
Intake Vital Signs 07/13/23 10:01 Height 5 ft Weight 118 lb BMI 23.0 BP 117/67 Blood Pressure Location Rt brachial Position Sitting Pulse 80 Intake Visit Reasons: Abdominal hernia Intake Note: Patient referred for abdominal hernia. Reports had it surgically repaired at [facility] 2 yrs ago. But it grew back within 3wks of surgery. C/o pain with coughing, bending, after eating. It hurts all the time. Patient with hx of colon ca. Has a colostomy bag. 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 Child Required: No Accompanied by: Self / Same As Patient Allergies erythromycin base [ERYTHROMYCIN BASE] Allergy (Severe, Verified 07/13/23 10:05) Anaphylaxis levofloxacin [From Levaquin] Allergy (Severe, Verified 07/13/23 10:05) Anaphylaxis Penicillins [PCN] Allergy (Severe, Verified 07/13/23 10:05) Anaphylaxis seafood Allergy (Severe, Verified 07/13/23 10:05) Anaphylaxis Sulfa (Sulfonamide Antibiotics) [SULFA (SULFONAMIDE ANTIBIOTICS)] Allergy (Severe, Verified 07/13/23 10:05) Anaphylaxis, vomiting Tetracyclines Allergy (Severe, Verified 07/13/23 10:05) Anaphylaxis divalproex sodium [Depakote] Allergy (Unknown, Verified 07/13/23 10:05) altered mental status gluten [GLUTEN] Allergy (Unknown, Verified 07/13/23 10:05) BLOATING,RASH rice Allergy (Verified 07/13/23 10:05) Unknown Medication List - Last Reconciled 07/13/23 by Marcel Woodson MD albuterol sulfate 90 mcg/actuation 2 puffs inhalation Q6H PRN amitriptyline 1 tab PO BEDTIME apixaban (Eliquis) 5 mg PO BID 30 days budesonide-formoterol 80-4.5 mcg/actuation 2 puffs inhalation BID cholestyramine (with sugar) 4 gram 1 packet PO BID colostomy bags As directed [colostomy supplies As directed] dicyclomine 20 mg PO BID digoxin 125 mcg PO DAILY diphenhydramine HCl (Banophen) 50 mg PO BEDTIME diphenhydramine-0.9 % sod.chlr 25 mg/50 mL 25 mg (50 mL) IV .Q24 5 days duloxetine 60 mg PO DAILY folic acid 1 tab PO DAILY food supplemt, lactose-reduced (Ensure oral liquid) 1 can orally 3 times a day; 30 days levetiracetam 750 mg PO BID 30 days levothyroxine 50 mcg PO DAILY lidocaine 4% (Aspercreme (lidocaine)) 1 patch topical DAILY PRN loperamide 2 mg PO NEEDED PRN loratadine 10 mg PO DAILY magnesium oxide 1 tab PO BID lytxqamkhhtd-rvjc-jlyuy acid 18-400 mg-mcg (Certavite-Antioxidant) 1 tab PO DAILY oxybutynin chloride 1 tab PO BID pantoprazole 40 mg PO DAILY potassium chloride ER 1 tab PO BID ropinirole 1 mg PO DAILY simvastatin 40 mg PO BEDTIME thiamine HCl (vitamin B1) (Vitamin B-1) 1 tab PO DAILY tobramycin sulfate 240 mg (6 mL) IV Q24H 6 days trazodone 1 tab PO BEDTIME HPI HPI Comments History of Present Illness Details Patient presents for evaluation of a possible ventral incisional hernia. Patient has had a plethora of prior abdominal surgeries. She is unclear of the precise number but she has a colostomy. She has had ventral hernia repair in the past. She has had her gallbladder removed. History of gastric and colon cancer according to the patient. She had ventral hernia repair approximately 2 and half years ago at [facility]. She thinks this may have recurred. She complains of intense incisional discomfort this below the umbilicus. Chart was reviewed and patient evaluated. Patient has a plethora of medical comorbidities. [facility] Medical History Primary cancer of foot Pulmonary embolism Degenerative cervical disc Lumbar disc disease Celiac disease Pure hypercholesterolemia Epilepsy Hypothyroidism COPD (chronic obstructive pulmonary disease) Pseudoseizure Conversion disorder Colon cancer Paroxysmal A-fib Allergy to multiple drugs Deep vein thrombosis Surgical History History of arthroplasty History of hysterectomy (~1979) Hx of cholecystectomy S/P IVC filter History of partial surgical removal of colon History of partial gastrectomy History of colectomy History of colostomy reversal History of bladder surgery History of sinus surgery History of facial surgery History of colonoscopy Family History Mother CAD (coronary artery disease) Other Mental health disorder Social History Household Members: Other Household Members Other:: 3 roommates Housing: House Do you presently have visiting nurse or other home services: Yes Alcohol intake: former Patient Tobacco Use Status: Never used Tobacco e-Cigarette/Vaping Use: Never Used Second Hand Smoke Exposure: Yes service: No Current occupational status: disabled Cognitive needs: Yes (cane) Hearing needs: No Vision needs: Yes (Glasses) Physical Exam Vital Signs: Last Vital Signs Pulse 80 07/13/23 10:01 BP 117/67 07/13/23 10:01 BMI result Body Mass Index 23.0 Const Other: Very thin female. GI Other: Soft abdomen. Left lower quadrant ostomy. Multiple abdominal scars. Patient was examined both supine and standing with Valsalva. Patient has marked tenderness along the infraumbilical incision site of 1 of her surgeries which she said is a prior hernia repair. A lot of scarring and cicatrization was p alpated. No obvious defect. Assessment & Plan Assessment & Plan (1) Abdominal wall pain: Code(s): R10.9 - Unspecified abdominal pain Plan Having reviewed the patient's prior CT scans, her last scan was approximately year ago and demonstrates no obvious ventral hernias. She had a was noted to have mom new matted small bowel. Current plan is to repeat a CT scan of abdomen pelvis to evaluate for ventral hernia repair and direct further interventions and studies based on these results and patient's clinical course. Orders: Orders CT abdomen pelvis wo/w IV con Today R10.9 - Unspecified abdominal pain Coding Level of Care Code New Pt Level 4 (94238) Diagnoses Abdominal wall pain R10.9
== END 2023-07-13 10:44 | disposition home or self-care (01) ==
PROVIDERS: Referring Provider Nurse Practitioner Family; Visit Provider Surgery
DX: R10.9 Unspecified abdominal pain (principal)
CPT/HCPCS: 99204

== ENCOUNTER 2023-07-13 17:01 | Inpatient (IN) | payer MEDICARE, MEDICAID, SELFPAY ==
--- NOTE | ~2023-07-13 | MR_ITS ---
EXAMINATION: MRI ABDOMEN WITHOUT AND WITH CONTRAST CLINICAL INFORMATION: Dilated pancreatic duct. Abdomen pain the previous CT reports previous cholecystectomy. Pneumobilia. Dilated common duct measuring 1.6 cm with intrahepatic biliary ductal dilation and a dilated pancreatic duct COMPARISON: Portions of CT 07/14/23 TECHNIQUE: Anatomic and fluid sensitive MR sequences were used to examine the abdomen. No IV contrast was administered. MRCP was performed Type of contrast: Not applicable Volume of contrast discarded: 0 mL FINDINGS: LIVER: The right lobe of the liver measures 17.7 cm. This is within one standard deviation of the mean expected. The liver contour is smooth. There is no suspicious focal liver lesion demonstrated on this nonenhanced examination. BILIARY TRACT: Previous cholecystectomy. There is a dilated extrahepatic biliary tree. There are some mildly prominent intrahepatic bile ducts. Better demonstrated on previous CT was pneumobilia. MRCP: There is dilation of the extrahepatic bile ducts to the level of the ampulla. The common duct measures up to 1.4 cm. There is no convincing choledocholithiasis. The main pancreatic duct measures approximately 0.4 cm. The common duct joins the bile duct at the ampulla. There is no long, and channel. There is visualization of a mildly prominent pancreatic duct throughout the pancreatic body and tail. There is no definite signal void within the pancreatic duct. SPLEEN: The spleen measures 8.0 cm. No large abnormality. PANCREAS: There is no definite pancreatic mass. As described there is diffuse mild prominence throughout the pancreatic duct. No focal stricture or mass demonstrated. No localized peripancreatic fluid. ADRENAL GLANDS: No suspicious abnormality. KIDNEYS: No dilation of the urinary collecting system. No suspicious renal mass. There is a complicated cyst measuring less than 1 cm in the periphery of the posterior mid left kidney. There was no suspicious finding in this area on recent CT. This does not require any specific further evaluation. There may be one or 2 other tiny nonsuspicious cysts that do not require further evaluation. GASTROINTESTINAL TRACT: Extensive postoperative changes. ABDOMINAL WALL: Evidence of previous surgery. No large hernia. LYMPHOVASCULAR STRUCTURES AND FLUID: No abdominal aortic aneurysm demonstrated. IVC filter MUSCULOSKELETAL: There is a probable hemangioma at L2. VISUALIZED LOWER CHEST: No suspicious abnormality demonstrated MR/MR MRCP IMPRESSION: Previous cholecystectomy. Dilated extrahepatic biliary tree without choledocholithiasis. Diffuse nonspecific prominence of the pancreatic duct without a definite mass.
--- NOTE | ~2023-07-13 | CT_ITS ---
EXAMINATION: CT ABDOMEN AND PELVIS WITHOUT AND WITH CONTRAST CLINICAL INFORMATION: Bilateral flank pain, rule out hydronephrosis, abscess, stone COMPARISON: 08/18/2022 TECHNIQUE: Multidetector volumetric imaging was performed of the abdomen and pelvis before and after the IV administration of 85 mL of Omnipaque 300 intravenous contrast. Sagittal and coronal reformatted images were obtained on the technologist's workstation. This CT examination was performed using dose optimization techniques as appropriate, variously including the following: *Automated exposure control *Adjustment of mA and/or kV according to patient size (this includes techniques or standardized protocols for targeted exams where dose is matched to indication/reason for exam; i.e. extremities or head) *Use of iterative reconstruction technique DLP: 615 mGy-cm FINDINGS: LUNG BASES: The visualized lung bases are unremarkable. LIVER, GALLBLADDER, AND BILIARY TREE: The liver is normal in size, shape, and attenuation. Redemonstrated pneumobilia. Status post cholecystectomy. Dilated common bile duct to 1.6 cm, similar to prior. Mild intrahepatic biliary ductal dilatation. PANCREAS: Pancreatic duct appears dilated to 5 mm, which appears more prominent compared to remote prior study of 05/15/2019. No focal parenchymal abnormality is seen. No surrounding inflammation. SPLEEN: Unremarkable ADRENAL GLANDS: Unremarkable KIDNEYS AND URETERS: No hydronephrosis or obstructing calculus bilaterally. Postcontrast nephrograms are symmetric. Multiple scattered tiny hypoattenuating foci are present in both kidneys, statistically favoring cysts; no follow-up recommended. BLADDER: Prominently distended without significant focal wall thickening. GASTROINTESTINAL TRACT: Postoperative changes of the bowel with left lower quadrant colostomy and multiple small bowel suture lines. No convincing evidence for bowel obstruction or significant wall thickening. No free fluid or free air is seen. ABDOMINAL WALL: Left lower quadrant colostomy. LYMPH NODES: Normal VASCULAR: IVC filter is present. PELVIC VISCERA: Patient is status post hysterectomy. OSSEOUS STRUCTURES: Degenerative disc disease at L5-S1. CT/CT abdomen pelvis wo/w IV con IMPRESSION: 1. No hydronephrosis or obstructing calculus identified. 2. Redemonstrated pneumobilia and biliary ductal dilatation, similar to 08/18/2022, which could be physiologic in the setting of prior cholecystectomy. 3. Dilated pancreatic duct to 5 mm, more prominent compared to prior. Correlation with follow-up MRI/MRCP is recommended, as a distal obstructing lesion cannot be excluded. 4. Prominently distended urinary bladder. 5. Postoperative changes of the bowel with left lower quadrant colostomy. No convincing evidence for bowel obstruction.
--- NOTE | ~2023-07-13 | US_ITS ---
EXAMINATION: US PELVIS LIMITED (BLADDER) CLINICAL INFORMATION: Abnormal bladder bladder on CT scan, pain.. COMPARISON: CT scan abdomen and pelvis 07/14/2023 TECHNIQUE: Real-time imaging of the bladder. FINDINGS: BLADDER: Well distended. A small amount of debris is seen within the bladder. Bilateral ureteral jets are demonstrated. Prevoid bladder volume is 533 mL. The patient was unable to void today On the recent prior CT scan, the patient voided 100 mL by catheter. US/US abdomen complete IMPRESSION: 1. The patient was unable to void today. 2. Small amount of debris is seen within the bladder.
--- NOTE | 2023-07-13 17:10 | ED_ITS ---
HPI - General Adult General Chief complaint: Urogenital-Female Stated complaint: uti affecting kidneys Time Seen by Provider: 07/13/23 21:15 Source: patient Mode of arrival: ambulatory Limitations: no limitations History of Present Illness HPI narrative: 67-year-old female who presents emergency department for evaluation of urinary tract infection symptoms for 1 week worse x3 days. The patient states that she has a neurogenic bladder and self catheterizes herself. She states that over the past week she has had a do more frequent catheterizations and feels like she is retaining urine. Over the last 3 days she has had dysuria, suprapubic pain and bilateral flank pain. Patient states that over the past 3 days she has had nausea and vomiting not able to eat or drink. Patient has a history of stomach cancer and colon cancer and states that she only has 3 ft of colon left and has a Colostomy. She states she has had increased output through her colostomy but has not been on antibiotics recently. She states that her suprapubic pain is a constant, pressure pain. She states she has bilateral flank pain which feels like she is being stabbed by a sharp knife and this pain is 10/10. She states that these symptoms are similar to when she had sepsis in the past. I did review her in-patient record from 01/07/2023. That time she was diagnosed with sepsis, her urine grew Klebsiella and E coli which was pansensitive . She had an ID consult and she was treated with gentamicin 240 mg IV and discharged on IV gentamicin to complete a 7 day course. Patient states that any time she takes oral antibiotics, no matter what the antibiotic is, she gets an anaphylactic reaction. patient had laboratory evaluation and urinalysis ordered earlier in the day by her PCP, after these results are available patient was advised to go to the emergency department for evaluation. Related Data Home Medications Medication Instructions Recorded Confirmed pantoprazole 40 mg tablet,delayed 40 mg PO DAILY 12/22/21 07/05/23 release amitriptyline 25 mg tablet 1 tab PO BEDTIME 01/07/22 07/05/23 cholestyramine (with sugar) 4 gram 1 packet PO BID 01/07/22 07/05/23 powder for susp in a packet diphenhydramine HCl 25 mg tablet 50 mg PO BEDTIME 01/07/22 07/05/23 (Banophen) folic acid 1 mg tablet 1 tab PO DAILY 01/07/22 07/05/23 loperamide 2 mg capsule 2 mg PO NEEDED PRN Diarrhea 01/07/22 07/05/23 magnesium oxide 400 mg (241.3 mg 1 tab PO BID 01/07/22 07/05/23 magnesium) tablet multivitamin-ferrous 1 tab PO DAILY 01/07/22 07/05/23 fumarate-folic acid 18 mg-400 mcg tablet (Certavite-Antioxidant) oxybutynin chloride 5 mg tablet 1 tab PO BID 01/07/22 07/05/23 potassium chloride 10 mEq 1 tab PO BID 01/07/22 07/05/23 tablet,extended release(part/cryst) thiamine HCl (vitamin B1) 100 mg 1 tab PO DAILY 01/07/22 07/05/23 tablet (Vitamin B-1) trazodone 50 mg tablet 1 tab PO BEDTIME 01/07/22 07/05/23 Previous Rx's Medication Instructions Recorded dicyclomine 20 mg tablet 20 mg PO BID #60 tabs 08/11/21 loratadine 10 mg tablet 10 mg PO DAILY #90 tabs 01/03/22 tobramycin sulfate 40 mg/mL 240 mg (6 mL) IV Q24H 6 days #36 mL 01/11/22 injection solution diphenhydramine HCl 25 mg/50 mL in 25 mg (50 mL) IV .Q24 before IV 01/12/22 0.9 % sodium chloride IV piggyback medication 5 days duloxetine 60 mg capsule,delayed 60 mg PO DAILY #30 caps 02/16/22 release ropinirole 1 mg tablet 1 mg PO DAILY #30 tabs 07/05/22 food supplemt, lactose-reduced See Rx Instructions PO TID 30 days 01/16/23 (Ensure oral liquid) #90 multiple units colostomy bags #5 ea 04/16/23 colostomy supplies #1 ea 04/16/23 albuterol sulfate 90 mcg/actuation 2 puff inhalation Q6H PRN for 07/05/23 aerosol inhaler muscle spasm #18 grams apixaban 5 mg tablet (Eliquis) 5 mg PO BID 30 days #60 tabs 07/05/23 budesonide-formoterol HFA 80 2 puff inhalation BID #10.2 grams 07/05/23 mcg-4.5 mcg/actuation aerosol inhaler digoxin 125 mcg (0.125 mg) tablet 125 mcg PO DAILY #90 tabs 07/05/23 levetiracetam 750 mg tablet 750 mg PO BID 30 days #60 tabs 07/05/23 levothyroxine 50 mcg tablet 50 mcg PO DAILY #90 tabs 07/05/23 lidocaine 4 % topical patch 1 patch topical DAILY PRN pain #30 07/05/23 (Aspercreme (lidocaine)) ea simvastatin 40 mg tablet 40 mg PO BEDTIME #90 tabs 07/05/23 Allergies Allergy/AdvReac Type Severity Reaction Status Date / Time erythromycin base Allergy Severe Anaphylaxis Verified 07/13/23 10:05 [ERYTHROMYCIN BASE] levofloxacin [From Levaquin] Allergy Severe Anaphylaxis Verified 07/13/23 10:05 Penicillins [PCN] Allergy Severe Anaphylaxis Verified 07/13/23 10:05 seafood Allergy Severe Anaphylaxis Verified 07/13/23 10:05 Sulfa (Sulfonamide Allergy Severe Anaphylaxis, Verified 07/13/23 10:05 Antibiotics) vomiting [SULFA (SULFONAMIDE ANTIBIOTICS)] Tetracyclines Allergy Severe Anaphylaxis Verified 07/13/23 10:05 divalproex sodium [Depakote] Allergy Unknown altered Verified 07/13/23 10:05 mental status gluten [GLUTEN] Allergy Unknown BLOATING,RA Verified 07/13/23 10:05 SH rice Allergy Unknown Verified 07/13/23 10:05 Review of Systems 2 Review of Systems: Yes all other systems are reviewed and are negative [facility] Past Medical History [facility] Narrative: Social history: She denies tobacco, alcohol and drug use. Medical History Primary cancer of foot Pulmonary embolism Degenerative cervical disc Lumbar disc disease Celiac disease Pure hypercholesterolemia Epilepsy Hypothyroidism COPD (chronic obstructive pulmonary disease) Pseudoseizure Conversion disorder Colon cancer Paroxysmal A-fib Allergy to multiple drugs Deep vein thrombosis Surgical History History of arthroplasty History of hysterectomy (~1979) Hx of cholecystectomy S/P IVC filter History of partial surgical removal of colon History of partial gastrectomy History of colectomy History of colostomy reversal History of bladder surgery History of sinus surgery History of facial surgery History of colonoscopy Family History Family History Mother CAD (coronary artery disease) Other Mental health disorder Social History Social History Household Members: Other Household Members Other:: 3 roommates Housing: House Do you presently have visiting nurse or other home services: Yes Alcohol intake: former Patient Tobacco Use Status: Never used Tobacco Smoked in Last 30 Days: No e-Cigarette/Vaping Use: Never Used Second Hand Smoke Exposure: Yes Use of substances other than those prescribed or required for medical reasons: No Advance Directives: No service: No Current occupational status: disabled Cognitive needs: Yes (cane) Hearing needs: No Vision needs: Yes (Glasses) Physical Exam ED Vital Signs: Vital Signs - 24 hr 07/13/23 17:11 Temperature 98 F Pulse Rate 97 Respiratory Rate 16 Blood Pressure 108/68 Pulse Oximetry 97 Oxygen Delivery Method Room Air BMI result Body Mass Index 22.8 Vital signs were normal exam: General: Awake, alert in no distress Head: Normocephalic, atraumatic EENT: PERRL, Lids normal, sclera normal, conjunctiva normal, nose normal , ears normal, throat without erythema or exudates Neck: Supple, no adenopathy, trachea midline and nontender Lung: breath sounds symmetric, no wheezing, rales or rhonchi Chest: symmetric movement, nontender Heart: regular rate and rhythm, normal S1, S2 no murmurs or rubs Abdomen: soft, Moderate suprapubic tenderness, nondistended, normal bowel sounds Back: moderate to severe bilateral CVA tenderness Extremities: no deformities, moves all extremities symmetrically Skin: no rashes, no lesion, normal color and warmth Neuro: Awake, alert, oriented, normal speech, cranial nerves intact, moves all extremities symmetrically Psych: Pleasant, cooperative Course Course Course Narrative: RME performed by Micki Garcia PA-C. Patient is a 67 year old assigned female at presenting to the emergency department with a known urinary tract infection, nausea, and vomiting. Patient states that she is allergic to all oral antibiotics. Labs ordered. Patient placed back in the waiting room pending room availability and results. Medical Decision Making Medical Decision Making MDM Narrative: 67-year-old female hyperlipidemia, paroxysmal atrial fibrillation on Xarelto and digoxin, COPD, neurogenic bladder require self cath, multiple antibiotic allergy, hypothyroidism, seizures, colon cancer, stomach cancer, who presents emergency department for evaluation of urinary tract infection symptoms for 1 week worse x3 days. Over the last 3 days she has had dysuria, suprapubic pain , bilateral flank pain, nausea, vomiting and increased output through her colostomy. Vital signs were normal. Physical examination revealed a well- appearing woman with moderate to severe abdominal bilateral flank pain. Following evaluation was ordered CBC, CMP, CRP, ESR, lactic acid, magnesium, COVID-19, urinalysis, blood cultures x2. Patient had laboratory evaluations underlying the day as well as urinalysis from earlier in the day ordered by her PCP . 21:59 my interpretation patient's laboratory evaluation is as follows: Mild normocytic anemia with an H&H of 11 and 34, normal kidney function, normal lactic acid, ESR and CRP. Urinalysis /microscopic from earlier in the day revealed positive blood, positive leukocyte esterase, positive nitrates, microscopic: greater than 50 WBCs, 3+ bacteria , 6-10 squamous cells. Urinalysis is concerning for urinary tract infection given her symptoms, suprapubic tenderness and bilateral flank pain and concerned that she has pyelonephritis. patient does not meet sepsis criteria. I ordered the following treatment: Normal saline x1 L, Morphine 4 mg IV, Zofran 4 mg IV, gentamicin 240 mg ( 5 mg/kg ). I did discuss admission with the covering hospitalist, Dr. Barakat and the patient will be admitted for further management. given her bilateral flank pain he requested CT scan of the abdomen pelvis with and without IV contrast rule out kidney stone, pyelonephritis, abscess. Patient told me that in the past when she has been admitted she has required Degroot catheterization to help drain her bladder therefore I ordered insertion of a Degroot catheter. Differential Diagnosis Differential Diagnoses: The differential diagnosis associated with the presentation includes Differential diagnosis includes was not limited to Urinary tract infection, pyelonephritis, kidney stone, renal abscess Admission/Observation Consideration of admission/observation: Escalation of care including admission/observation considered Consult Healthcare Provider Management of the patient was discussed with: Hospitalist Lab Data [facility] Lab Attestation statement: I reviewed the patient's lab results. please see [facility] for my interpretation of patient's laboratory evaluation 07/13/23 18:33 07/13/23 18:33 Labs: Lab Results 07/13/23 Range/Units 18:33 WBC 4.6 L (4.8-10.8) X10*3/uL RBC 3.74 L (4.20-5.50) X10*6/uL Hgb 11.4 L (12.0-16.0) g/dl Hct 34.1 L (37.0-47.0) % MCV 91.2 (80.0-98.0) fL MCH 30.5 (27.0-33.0) pg MCHC 33.4 (31.0-35.0) g/dl RDW 13.3 (11.0-16.0) % Plt Count 263 (160-400) X10*3/uL MPV 8.8 L (9.4-12.3) fL Immature Gran % (Auto) 0.2 (0.0-0.4) % Neut % (Auto) 45.6 (45-73) % Lymph % (Auto) 42.2 H (20-40) % [place] % (Auto) 9.7 (2-11) % Eos % (Auto) 1.7 (0-4) % Baso % (Auto) 0.6 (0-2) % Lymph # (Auto) 2.0 (1.2-4.9) X10*3/uL [place] # (Auto) 0.5 (0.1-1.2) X10*3/uL Eos # (Auto) 0.1 (0.0-0.4) X10*3/uL Baso # (Auto) 0.0 (0.0-0.2) X10*3/uL Abs Immat Gran (auto) 0.01 (0.00-0.03) X10*3/uL Absolute Neuts (auto) 2.1 (2.0-8.3) x10*3/uL Absolute Nucleated RBC 0.000 (0.0-0.012) X10*3/uL Nucleated RBC % (auto) 0.0 (0.0-0.2) /100WBC ESR 11 (0-20) MM/HR Sodium 137 (135-145) mmol/L Potassium 3.4 D (3.3-5.1) mmol/L Chloride 104 (96-108) mmol/L Carbon Dioxide 22 (22-29) mmol/L Anion Gap 14 (12-20) BUN 17 H (9-16) mg/dL Creatinine 0.54 (0.5-1.4) mg/dL Estim Creat Clear Calc 73.5 Estimated GFR > 60 Random Glucose 85 (60-115) mg/dL Lactic Acid 1.3 (0.5-2.0) mmol/L Calcium 9.5 (8.4-10.2) mg/dL Magnesium 2.0 (1.6-2.6) mg/dL Total Bilirubin 0.5 (0.0-1.0) mg/dL AST 24 (5-31) U/L ALT 18 (0-31) U/L Alkaline Phosphatase 86 (39-117) U/L C-Reactive Protein 0.15 (< or = 0.50) mg/dL Total Protein 6.9 (6.5-8.0) g/dL Albumin 4.0 (3.5-5.0) g/dL COVID-19 (JEFE) Negative (Negative) COVID-19 Clin Com See Note External Record Review External record reviewed: Inpatient record previous admission and infectious disease notes were reviewed by me Chronic Conditions Patient?s care impacted by: Other ( hyperlipidemia, atrial fibrillation, COPD, neurogenic bladder) Discharge Plan Discharge Prescriptions: No Action loratadine 10 mg tablet 10 mg PO DAILY Qty: 90 1RF duloxetine 60 mg capsule,delayed release(DR/EC) 60 mg PO DAILY Qty: 30 0RF ropinirole 1 mg tablet 1 mg PO DAILY Qty: 30 3RF (DME) colostomy bags [facility] See Rx Instructions .Route Qty: 5 5RF Rx Instructions: As directed (DME) colostomy supplies See Rx Instructions .Route .MEDSUPPLY Qty: 1 11RF Rx Instructions: As directed loperamide 2 mg capsule 2 mg PO NEEDED PRN (Reason: Diarrhea) trazodone 50 mg tablet 1 tab PO BEDTIME thiamine HCl (vitamin B1) [Vitamin B-1] 100 mg tablet 1 tab PO DAILY amitriptyline 25 mg tablet 1 tab PO BEDTIME magnesium oxide 400 mg (241.3 mg magnesium) tablet 1 tab PO BID diphenhydramine HCl [Banophen] 25 mg Tablet 50 mg PO BEDTIME folic acid 1 mg tablet 1 tab PO DAILY oxybutynin chloride 5 mg tablet 1 tab PO BID cholestyramine (with sugar) 4 gram powder in packet 1 packet PO BID potassium chloride 10 mEq tablet,ER particles/crystals 1 tab PO BID Certavite-Antioxidant 18-400 mg-mcg tablet 1 tab PO DAILY tobramycin sulfate 40 mg/mL solution 240 mg IV Q24H 6 Days Qty: 36 0RF diphenhydramine-0.9 % sod.chlr 25 mg/50 mL piggyback 25 mg IV .Q24 5 Days 0RF Rx Instructions: may repeat once in 30-60 minutes if not effective Ensure Liquid See Rx Instructions PO TID 30 Days Qty: 90 3RF Rx Instructions: 1 can orally 3 times a day; Eliquis 5 mg tablet 5 mg PO BID 30 Days Qty: 60 3RF digoxin 125 mcg (0.125 mg) tablet 125 mcg PO DAILY Qty: 90 0RF Hold Instructions: Doctor's Order levetiracetam 750 mg tablet 750 mg PO BID 30 Days Qty: 60 3RF levothyroxine 50 mcg tablet 50 mcg PO DAILY Qty: 90 1RF simvastatin 40 mg tablet 40 mg PO BEDTIME Qty: 90 1RF albuterol sulfate 90 mcg/actuation HFA aerosol inhaler 2 puff inhalation Q6H PRN (Reason: for muscle spasm) Qty: 18 1RF budesonide-formoterol 80-4.5 mcg/actuation HFA aerosol inhaler 2 puff inhalation BID Qty: 10.2 2RF lidocaine [Aspercreme (lidocaine)] 4 % adhesive patch,medicated 1 patch topical DAILY PRN (Reason: pain) Qty: 30 0RF dicyclomine 20 mg tablet 20 mg PO BID Qty: 60 0RF pantoprazole 40 mg tablet,delayed release (DR/EC) 40 mg PO DAILY
[2023-07-13 17:11] VITALS: BP 108/68; PULSE 97; RESP 16; TEMP 36.6; O2SAT 97; BMI 22.8
[2023-07-13 18:42] LABS: MANUAL DIFF FLAG NO
[2023-07-13 18:44] LABS: Basophils Percent Auto 0.6 % (0-2); Eosinophils Absolute Auto 0.1 X10*3/uL (0.0-0.4); Eosinophils Percent Auto 1.7 % (0-4); Hematocrit 34.1 % (37.0-47.0); Hemoglobin 11.4 g/dl (12.0-16.0); Imm Gran Abs Auto 0.01 X10*3/uL (0.00-0.03); Imm Gran Pct Auto 0.2 % (0.0-0.4); Lymphocytes Percent Auto 42.2 % (20-40); Mean Corpuscular HGB Conc 33.4 g/dl (31.0-35.0); Mean Corpuscular Hemoglobin 30.5 pg (27.0-33.0); Mean Corpuscular Volume 91.2 fL (80.0-98.0); Mean Platelet Volume 8.8 fL (9.4-12.3); Monocytes Absolute Auto 0.5 X10*3/uL (0.1-1.2); Monocytes Percent Auto 9.7 % (2-11); Neutrophils Absolute Auto 2.1 x10*3/uL (2.0-8.3); Neutrophils Percent Auto 45.6 % (45-73); Platelet Count 263 X10*3/uL (160-400); Red Blood Count 3.74 X10*6/uL (4.20-5.50); Red Cell Distribution Width 13.3 % (11.0-16.0); White Blood Count 4.6 X10*3/uL (4.8-10.8)
[2023-07-13 18:55] LABS: Lactic Acid 1.3 mmol/L (0.5-2.0)
[2023-07-13 18:58] LABS: Alanine Aminotransferase 18 U/L (0-31); Alkaline Phosphatase 86 U/L (39-117); Anion Gap 14 (12-20); Aspartate Amino Transferase 24 U/L (5-31); Bilirubin Total 0.5 mg/dL (0.0-1.0); Blood Urea Nitrogen 17 mg/dL (9-16); C Reactive Protein 0.15 mg/dL (< or = 0.50); Calcium 9.5 mg/dL (8.4-10.2); Carbon Dioxide 22 mmol/L (22-29); Chloride 104 mmol/L (96-108); Creatinine Clr Calc Pharmacy 73.5; Estimated Glomerular Filt Rate > 60; Glucose Random 85 mg/dL (60-115); Potassium 3.4 mmol/L (3.3-5.1); Sodium 137 mmol/L (135-145); Total Protein 6.9 g/dL (6.5-8.0)
[2023-07-13 18:59] LABS: COVID-19 Test Negative (Negative); IDNOW Serial# 08D9AD1C
--- OUTSIDE RECORDS SUMMARY | 2023-07-13 20:36 | XMS_ITS | Continuity of Care Document ---
Author Name Unknown Organization [facility] Address [address] [place] [address]- Care Team Providers Care Assembly Operator Name Role Phone Bryson Wright MD Primary Care Physician Encounter [facility] [place] Date(s): 03/23/23 - 04/22/23 [facility] [address] [place] [id number]- [place] Allergies, Adverse Reactions, Alerts Substance Reaction Severity Status codeine n-v Active doxycycline n-v rash Active tetracycline n-v rash Active clindamycin n-v rash Active erythromycin n-v rash Active rifampin n-v rash Active amoxicillin n-v rash Amoxycillin allergy Active oxacillin n-v rash Active penicillin 1 anaphylaxis rash Active vancomycin n-v rash Active gabapentin States breathing difficulty and itchiness from med Severe Active levofloxacin n-v Active sulfa drugs n-v rash Active Levaquin n-v rash Active Depakote Active Glutens Allergy to seafood Active Seafood Active Rice severe vomiting Active 1tolarates cefepime, ceftriaxone 07/2022 Immunizations Given and Recorded Vaccine Date Status Refusal Reason influenza virus vaccine, inactivated 08/20/22 Give n influenza virus vaccine, inactivated 11/27/21 Give n influenza virus vaccine, inactivated 05/23/19 Mahendra rded influenza virus vaccine, inactivated 06/08/18 Mahendra rded influenza virus vaccine, inactivated 11/13/09 Give n influenza virus vaccine, inactivated 1 09/06/08 Gi juanita influenza virus vaccine, inactivated 2 10/03/06 Gi juanita SARS-CoV-2 mRNA (bemixma-[id number]) vax 02/25/22 Given SARS-CoV-2 mRNA (lcixkbm-mmfl-gukki) vax 3 12/11/21 Given pneumococcal 13-valent vaccine 05/07/20 Recorded Zoster Vaccine Live 12/30/18 Recorded zoster vaccine, inactivated 06/15/18 Recorded Tet/diphth/pertussis, acel (oldterm) 03/19/12 Give n influ virus vac, H1N1, inactive(oldterm) 10/24/09 Given Pneumococcal Poly (PPV23) (oldterm) 06/14/06 Given Pneumococcal Vaccine (oldterm) 06/14/06 Given Not Given Vaccine Date Status Refusal Reason pneumococcal 23-valent vaccine 04/29/20 Not Given Patient Refuses 1Admin Note: given without difficulty, tolerated well 2Result Comment: lot #[id number] 10/03/06 3Early/Late Reason: Early/Late Reason: Med Not Available Medications Carafate 1 gm oral tablet 1 Gm, 1, tablet, By Mouth, 3 times a day before meals and bedtime, # 56 tablet, Refills 0, Tot. Refills 0, Maintenance, 03/06/23 9:28:00 EDT, Route to Pharmacy Electronically, [facility], Partial fill upon patient request if the prescrip... Start Date: 03/06/23 Stop Date: 03/20/23 Status: Ordered dicyclomine 20 mg oral tablet 1 tablet = 20 mg, By Mouth, 2 times a day, # 60 tablet, 0 Refills, Maintenance, 11/06/21 11:49:00 EST, Tablet, [facility], Partial fill upon patient request if the prescription is for aschedule II opioid drug., 155, cm, 09/03/21 8:09:00... Start Date: 11/06/21 Status: Ordered digoxin 0.125 mg oral tablet 1, tablet, By Mouth, Daily, # 30 tablet, Refills 1, Route to Pharmacy Electronically, [id number], 156, cm, 03/01/22 4:19:00 EDT, Height, 55.2, kg, 02/24/22 21:20:00 EDT, Dry Weight Start Date: 04/21/22 Status: Ordered duloxetine 60 mg oral enteric coated capsule 1 capsule = 60 mg, By Mouth, Daily, # 30 capsule, 0 Refills, Maintenance, 09/03/21 13:33:00 EST, ECCapsule, Partial fill upon patient request if the prescription is for a schedule II opioid drug. Start Date: 09/03/21 Status: Ordered Eliquis 5 mg oral tablet TAKE ONE (1) TABLET BY MOUTH TWICE DAILY Start Date: 02/24/22 Status: Ordered levETIRAcetam 100 mg/mL oral solution 7.5 mL = 750 mg, By Mouth, 2 times a day, # 450 mL, 0 Refills, Maintenance, 11/29/21 15:19:00 EST, Solution, [facility], Partial fill upon patient request if the prescription is for a schedule II opioid drug., 155, cm, 09/03/21 8:09:00 E... Start Date: 11/29/21 Stop Date: 12/29/21 Status: Ordered levothyroxine 0.05 mg oral tablet 1 tablet = 50 mcg, By Mouth, Daily, 0 Refills, Maintenance, 11/06/19 15:24:00 EST, Tablet Start Date: 11/06/19 Status: Ordered loratadine 10 mg oral tablet 10 mg, 1, tablet, By Mouth, Daily, Refills 0, Maintenance, 03/29/20 13:59:00 EDT Start Date: 03/29/20 Status: Ordered multivitamin with minerals Calcium and Magnesium oral tablet 1 tablet, By Mouth, Daily, # 30 tablet, 0 Refills, Maintenance, 03/01/22 9:50:00 EDT, Tablet, [facility]acy #[id number], Partial fill upon patient request if the prescription is for a schedule II opioid drug., 1 tablet By Mouth Daily,x30 days, 156, cm, 03/01... Start Date: 03/01/22 Stop Date: 03/31/22 Status: Ordered pantoprazole 40 mg oral delayed release tablet = 40 mg, By Mouth, 2 times a day, # 28 tablet, 0 Refills, Maintenance, 03/06/23 9:27:00 EDT, EC Tablet, 160, cm, 03/05/23 16:14:00 EDT, Height, 51, kg, 02/12/23 9:25:00 EDT, Dry Weight Start Date: 03/06/23 Stop Date: 03/20/23 Status: Ordered ProAir HFA 90 mcg/inh inhalation aerosol with adapter 1, puffs, Inhalation, Every 6 hours, PRN, # 8.5 Gm, Refills 0, Maintenance, 11/06/19 15:20:00 EST, Aerosol Start Date: 11/06/19 Status: Ordered Rolling Walker Rolling Walker, See Instructions, # 1 each, Refills 0, Tot. Refills 0, Maintenance, To help ambulate with Gait abnormality due to Lumbar radiculopathy pain, 08/21/22 10:11:00 EST, Supply, 155, cm, 08/21/22 9:26:00 EST, Height, 51, kg, 08/19/22 17:15:0... Start Date: 08/21/22 Status: Ordered rOPINIRole 1 mg oral tablet 1 tablet = 1 mg, By Mouth, Daily at bedtime, Maintenance, 09/01/21 15:51:00 EST, ; Start Date: 09/01/21 Status: Ordered simvastatin 40 mg oral tablet 40 mg, 1, tablet, By Mouth, Daily at bedtime, # 30 tablet, Refills 1, Tot. Refills 1, Maintenance, 11/06/21 11:44:00 EST, Route to Pharmacy Electronically, [facility], Partial fill uponpatient request if the prescription is for a schedu... Start Date: 11/06/21 Status: Ordered Symbicort 80mcg/4.5mcg Inhaler 2, puffs, Inhalation, 2 times a day, # 1 each, Refills 0, Tot. Refills 0, Maintenance, 11/06/21 11:43:00 EST, Inhaler, Route to Pharmacy Electronically, [id number], [facility], 155, cm, 09/03/21 8:09:00 EST, Hei... Start Date: 11/06/21 Status: Ordered traZODone 50 mg oral tablet 50 mg, 1, tablet, By Mouth, Daily at bedtime, # 30 tablet, Refills 0, Tot. Refills 0, Maintenance, 11/06/21 11:44:00 EST, Route to Pharmacy Electronically, [facility], Partial fill uponpatient request if the prescription is for a schedu... Start Date: 11/06/21 Status: Ordered walker with wheels walker with wheels, See Instructions, # 1 each, Refills 0, Tot. Refills 0, Maintenance, Walker withwheels to improve balance, fall prevention, 11/29/21 14:50:00 EST, Supply Start Date: 11/29/21 Status: Ordered Problem List Condition Confirmation Course Effective Dates Status H ealth Status Informant Chronic back pain 1 Confirmed Active Conversion disorder Confirmed 11/12/09 Active DIABETES MELLITUS Confirmed Active Diabetic gastroparesis Confirmed Active GERD - Gastro-esophageal reflux disease Confirmed Active NO h/o CVA by MRI Confirmed Active History of DVT (deep vein thrombosis) Confirmed Active Major depression Confirmed Active Myofascial pain syndrome Confirmed Active Narcotic dependence, opiate seeking behavior 2 Confirmed 11/29/13 Active Parastomal hernia Confirmed Active Pseudoseizures Confirmed Active PTSD (post-traumatic stress disorder) Confirmed Active Rapid gastric emptying Confirmed Active SVT - Supraventricular tachycardia 3 Confirmed Stable Active Unexplained weight loss Confirmed Active 1High dose narcotics at 310mg oxycodone daily; one incident of stolen medications 02/26/12 21-07-12 [facility]inated [facility] for violation of narcotic contract. 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 12-21-13 Opiate seeking behavior. Complex psychosocial issues. 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 Social History Social History Type Response Smoking Status Never (less than 100 in lifetime);Never entered on: 02/24/22 Sex Patient Care team information Care Team Personnel Name: Sophie Crane RN Position: [facility] RN Member Role: Primary Care Nurse Name: Bryson Wright MD Position: Reference Physician Member Role: PCP Address: Address: [address] [place] [address] Drive [address] [place] [id number] Name: Honorio Boudreaux RN Position: [facility] RN Member Role: Primary Care Nurse Name: Omid Rodriguez RN Position: [facility] RN Member Role: Primary Care Nurse Name: Kat Wagner RN Position: [facility] OB RN Member Role: Primary Care Nurse Name: Jay Reich RN Position: [facility] RN Member Role: Primary Care Nurse Name: Mónica Montanez RN Position: [facility] SN RN Member Role: Primary Care Nurse Name: Yamilet Jack RN Position: [facility] RN Member Role: Primary Care Nurse Name: Jenni Crabtree RN Position: [facility] RN Member Role: Primary Care Nurse Name: Socorro Gilbert RN Position: [facility] SN RN Member Role: Primary Care Nurse Name: Delbert Coyne RN Position: [facility] RN Member Role: Primary Care Nurse Name: Lisa Deutsch RN Position: [facility] SN Latent Print Examiner Member Role: Primary Care Nurse Name: Rubin Alberto RN Position: [facility] RN Member Role: Primary Care Nurse Name: Sunil Crowley RN Position: [facility] RN Member Role: Primary Care Nurse Name: Long Bravo Position: [facility] RN Member Role: Primary Care Nurse Name: Georgie Kruse RN Position: [facility] RN Member Role: Primary Care Nurse Name: Renu Azar RN Position: [facility] Onco RN Member Role: Primary Care Nurse Name: Noah Mccann RN Position: [facility] RN Member Role: Primary Care Nurse Name: Jamila Neil Position: [facility] RN Member Role: Primary Care Nurse Name: Juliana Rehman RN Position: [facility] RN Member Role: Primary Care Nurse Name: Aide Lockett RN Position: [facility] RN Member Role: Primary Care Nurse Name: Balbina Lafleur RN Position: [facility] RN Member Role: Primary Care Nurse Name: Genesis Stewart RN Position: [facility] RN Member Role: Primary Care Nurse Name: Maribel Dc RN Position: [facility] RN Darby Member Role: Primary Care Nurse Name: Sara Guevara RN Position: [facility] RN Member Role: Primary Care Nurse Name: Georgie Shirley RN Position: [facility] RN Member Role: Primary Care Nurse Name: Saniya Raines RN Position: [facility] RN Member Role: Primary Care Nurse Name: Jenifer Conway RN Position: [facility] RN Member Role: Primary Care Nurse Name: Tori Sanchez RN Position: [facility] RN Member Role: Primary Care Nurse Name: Syl Taylor NP Position: [facility] Associate Professional Member Role: Primary Care Nurse Address: Address: [address] [place] [address] [address] [facility] [place] [address]- Name: Johana Quintana RN Position: [facility] RN Member Role: Primary Care Nurse Name: Juliana Daniels RN Position: [facility] RN Member Role: Primary Care Nurse Name: Karla Ferrell RN Position: [facility] RN Member Role: Primary Care Nurse Name: Carmen Alvarado RN Position: [facility] SN RN Member Role: Primary Care Nurse Name: Leonela Huerta RN Position: [facility] RN Member Role: Primary Care Nurse Name: Ryan Moreno RN Position: [facility] RN Member Role: Primary Care Nurse Name: Nadya Perales RN Position: [facility] RN Member Role: Primary Care Nurse Name: Jenn Worley LPN Position: [facility] RN Member Role: Primary Care Nurse Name: Kaye Murrieta RN Position: [facility] RN Member Role: Primary Care Nurse Care Team Related Persons Name: RYAN FELIZ Address: [facility] Name: GAVIN FELIZ Name: MICHAEL SPRING Address: [address] [address] Name: TANGELA SPRING Address: [address] [place] [address] Name: PARISH SANTO Address: [address] [place] [address]
--- OUTSIDE RECORDS SUMMARY | 2023-07-13 20:36 | XMS_ITS | Continuity of Care Document ---
Author Name Unknown Organization [facility] Address [address] [place] [address]- Care Team Providers Care Table Filler Name Role Phone Bryson Wright MD Primary Care Physician [phone] [place] [facility] [place]s): 03/21/23 - 04/20/23 [facility] [address] [place] [id number]- [place] Allergies, Adverse Reactions, Alerts Substance Reaction [...] inactivated 2 10/03/06 Gi juanita SARS-CoV-2 mRNA (ywdbyih-onpx-oilqn) vax 02/25/22 Given SARS-CoV-2 mRNA (vfdjpqr-doii-yqrcs) vax 3 12/11/21 Given pneumococcal 13-valent vaccine [...] without difficulty, tolerated well 2Result Comment: lot #[id number] exp 10/03/06 3Early/Late Reason: Early/Late Reason: Med Not Available Medications Carafate 1 gm oral tablet 1 Gm, 1, tablet, By Mouth, 3 times a day before meals and bedtime, # 56 tablet, Refills 0, Tot. Refills 0, Maintenance, 03/06/23 9:28:00 EDT, Route to Pharmacy Electronically, [facility], Partial fill upon patient request if the prescrip... Start Date: 03/06/23 Stop Date: 03/20/23 Status: Ordered dicyclomine 20 mg oral tablet 1 tablet = 20 mg, By Mouth, 2 times a day, # 60 tablet, 0 Refills, Maintenance, 11/06/21 11:49:00 EST, Tablet, [facility], Partial fill upon patient request if the prescription is for aschedule II opioid drug., 155, cm, 09/03/21 8:09:00... Start Date: 11/06/21 Status: Ordered digoxin 0.125 mg oral tablet 1, tablet, By Mouth, Daily, # 30 tablet, Refills 1, Route to Pharmacy Electronically, [id number], 156, cm, 03/01/22 4:19:00 EDT, Height, 55.2, [...] 0 Refills, Maintenance, 11/29/21 15:19:00 EST, Solution, [facility], Partial fill upon patient [...] 0 Refills, Maintenance, 03/01/22 9:50:00 EDT, Tablet, [facility]/pharmacy #[id number], Partial fill upon patient request if [...] 11/06/21 11:44:00 EST, Route to Pharmacy Electronically, [facility], Partial fill uponpatient request if the prescription is for a schedu... Start Date: 11/06/21 Status: Ordered Symbicort 80mcg/4.5mcg Inhaler 2, puffs, Inhalation, 2 times a day, # 1 each, Refills 0, Tot. Refills 0, Maintenance, 11/06/21 11:43:00 EST, Inhaler, Route to Pharmacy Electronically, [id number], [facility], 155, cm, 09/03/21 8:09:00 EST, Hei... Start Date: 11/06/21 Status: Ordered traZODone 50 mg oral tablet 50 mg, 1, tablet, By Mouth, Daily at bedtime, # 30 tablet, Refills 0, Tot. Refills 0, Maintenance, 11/06/21 11:44:00 EST, Route to Pharmacy Electronically, [facility], Partial fill uponpatient request if the [...] team information Care Team Personnel Name: Sophie Craen RN Position: [facility] RN Member Role: Primary Care Nurse Name: Bryson Wright MD Position: Reference Physician Member Role: PCP Address: Address: [address] [place] [address] [place] [id number] Name: Honorio Boudreaux RN Position: [facility] RN Member Role: Primary Care Nurse Name: Omid Rodriguez RN Position: [facility] RN Member Role: Primary Care Nurse Name: Kat Wagner RN Position: [facility] OB RN Member Role: Primary Care Nurse Name: Jay Reich RN Position: [facility] RN Member Role: Primary Care Nurse Name: Mónica Montanez RN Position: [facility] SN RN Member Role: Primary Care Nurse Name: Yamilet Jack RN Position: [facility] RN Member Role: Primary Care Nurse Name: Jenni Crabtree RN Position: [facility] RN Member Role: Primary Care Nurse Name: Socorro Gilbert RN Position: [facility] SN RN Member Role: Primary Care Nurse Name: Delbert Coyne RN Position: [facility] RN Member Role: Primary Care Nurse Name: Lisa Deutsch RN Position: [facility] SN Aquatic Instructor Member Role: Primary Care Nurse Name: Rubin Alberto RN Position: [facility] RN Member Role: Primary Care Nurse Name: Sunil Crowley RN Position: [facility] RN Member Role: Primary Care Nurse Name: Long Bravo Position: [facility] RN Member Role: Primary Care Nurse Name: Georgie Kruse RN Position: [facility] RN Member Role: Primary Care Nurse Name: Renu Azar RN Position: [facility] Onco RN Member Role: Primary Care Nurse Name: Noah Mccann RN Position: [facility] RN Member Role: Primary Care Nurse Name: Jamila Neil Position: [facility] RN Member Role: Primary Care Nurse Name: Juliana Rehman RN Position: [facility] RN Member Role: Primary Care Nurse Name: Aide Lockett RN Position: [facility] RN Member Role: Primary Care Nurse Name: Balbina Lafleur RN Position: [facility] RN Member Role: Primary Care Nurse Name: Genesis Stewart RN Position: [facility] RN Member Role: Primary Care Nurse Name: Maribel Dc RN Position: [facility] RN Supv Member Role: Primary Care Nurse Name: Sara Guevara RN Position: [facility] RN Member Role: Primary Care Nurse Name: Georgie Shirley RN Position: [facility] RN Member Role: Primary Care Nurse Name: Saniya Raines RN Position: [facility] RN Member Role: Primary Care Nurse Name: Jenifer Conway RN Position: [facility] RN Member Role: Primary Care Nurse Name: Tori Sanchez RN Position: [facility] RN Member Role: Primary Care Nurse Name: Syl Taylor NP Position: [facility] Associate Professional Member Role: Primary Care Nurse Address: Address: [address] [place] [address] [address] [facility] [place] [address]- Name: Johana Quintana RN Position: [facility] RN Member Role: Primary Care Nurse Name: Juliana Daniels RN Position: [facility] RN Member Role: Primary Care Nurse Name: Karla Ferrell RN Position: [facility] RN Member Role: Primary Care Nurse Name: Carmen Alvarado RN Position: [facility] SN RN Member Role: Primary Care Nurse Name: Leonela Huerta RN Position: [facility] RN Member Role: Primary Care Nurse Name: Ryan Moreno RN Position: S RN Member Role: Primary Care Nurse Name: Nadya Perales RN Position: S RN Member Role: Primary Care Nurse Name: Jenn Worley LPN Position: S RN Member Role: Primary Care Nurse Name: Kaye Murrieta RN Position: [facility] RN Member Role: Primary Care Nurse Care Team Related Persons Name: RYAN FELIZ Address: [facility] Name: GAVIN FELIZ Name: MICHAEL SPRING Address: [address] [address] Name: TANGELA SPRING Address: [address] [place] [address] Name: PARISH SANTO Address: [address] [place] [address]
--- OUTSIDE RECORDS SUMMARY | 2023-07-13 20:36 | XMS_ITS | Continuity of Care Document ---
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 Role Phone Conrado PAUL, Bob Luis Primary Care Physic lisa [place] [facility] [place] 04/06/[address] [address]- [facility] Encounter Diagnosis Chest pain(Final) - 03/27/20 Discharge Disposition: A-D/C Home Attending Physician: Jeancarlos Weeks MD Admitting Physician: Moisés Grande MD Referring Physician: Not on Staff, Referring MD Allergies, Adverse Reactions, Alerts Substance Reaction Severity Status codeine n-v Active doxycycline n-v rash Active tetracycline n-v rash Active clindamycin n-v rash Active erythromycin n-v rash Active rifampin n-v rash Active amoxicillin n-v rash Amoxycillin allergy Active oxacillin n-v rash Active penicillin anaphylaxis rash Active vancomycin n-v rash Active levofloxacin n-v Active sulfa drugs n-v rash Active Levaquin n-v rash Active Depakote Active Glutens Allergy to seafood Active Seafood Active Rice severe vomiting Active Immunizations Given and Recorded Vaccine Date Status Refusal Reason Tet/diphth/pertussis, acel (oldterm) 03/19/12 Give n influenza virus vaccine, inactivated 11/13/09 Give n influenza virus vaccine, inactivated 1 09/06/08 Gi juanita influenza virus vaccine, inactivated 2 10/03/06 Gi juanita influ virus vac, H1N1, inactive(oldterm) 10/24/09 Given Pneumococcal Poly (PPV23) (oldterm) 06/14/06 Given Pneumococcal Vaccine (oldterm) 06/14/06 Given 1Admin Note: given without difficulty, tolerated well 2Result Comment: lot #[id number] exp 10/03/06 Medications acetaminophen 500 mg oral tablet 2 tablet = 1,000 mg, By Mouth, Every 6 hours, 0 Refills, Maintenance, 03/29/20 13:59:00 EDT Start Date: 03/29/20 Status: Ordered amitriptyline 25 mg oral tablet 25 mg, 1, tablet, By Mouth, Daily at bedtime, Refills 0, Maintenance, 09/26/19 15:09:00 EST Start Date: 09/26/19 Status: Ordered aspirin 81 mg oral delayed release tablet 81 mg, 1, tablet, By Mouth, Daily, # 30 tablet, Refills 0, Maintenance, 09/26/19 15:04:00 EST Start Date: 09/26/19 Status: Ordered clonazePAM 0.5 mg oral tablet 1 tablet = 0.5 mg, By Mouth, Daily, PRN Anxiety, 0 Refills, Maintenance, 09/26/19 15:06:00 EST Start Date: 09/26/19 Status: Ordered Cymbalta 60 mg oral enteric coated capsule 1 capsule = 60 mg, By Mouth, Daily, # 30 capsule, 6 Refills, Maintenance, 12/30/13 10:12:43, EC Capsule Start Date: 12/30/13 Stop Date: 07/28/14 Status: Ordered dicyclomine 20 mg oral tablet 1 tablet = 20 mg, By Mouth, 4 times a day, # 28 tablet, 0 Refills, Maintenance, 11/06/19 15:23:00 EST, Tablet Start Date: 11/06/19 Stop Date: 11/13/19 Status: Ordered Digoxin = 125 mcg, By Mouth, Daily, 0 Refills, Maintenance, 11/14/18 9:48:27 EST Start Date: 11/14/18 Status: Ordered diphenhydrAMINE 25 mg oral capsule 2 capsule = 50 mg, By Mouth, Daily at bedtime, as needed, 0 Refills, Maintenance, 03/29/20 13:59:00EDT Start Date: 03/29/20 Status: Ordered enoxaparin 80 mg/0.8 mL injectable solution = 70 mg, Subcutaneous Injection, Every 12 hours, 0 Refills, Maintenance, 03/29/20 13:54:00 EDT Start Date: 03/29/20 Status: Ordered fluticasone-vilanterol Inhalation, Daily, 0 Refills, Maintenance, 11/07/19 15:22:00 EST, Inhaler Start Date: 11/07/19 Status: Ordered levETIRAcetam 750 mg oral tablet 1 tablet = 750 mg, By Mouth, 2 times a day, 0 Refills, Maintenance, 03/29/20 13:55:00 EDT Start Date: 03/29/20 Status: Ordered levothyroxine 0.05 mg oral tablet 1 tablet = 50 mcg, By Mouth, Daily, # 90 tablet, 0 Refills, Maintenance, 11/06/19 15:24:00 EST, Tablet Start Date: 11/06/19 Status: Ordered loperamide 2 mg oral capsule Refills 0, Maintenance, 03/29/20 13:59:00 EDT Start Date: 03/29/20 Status: Ordered loratadine 10 mg oral tablet 10 mg, 1, tablet, By Mouth, Daily, Refills 0, Maintenance, 03/29/20 13:59:00 EDT Start Date: 03/29/20 Status: Ordered meclizine 12.5 mg oral tablet 1 tablet = 12.5 mg, By Mouth, Daily, PRN as needed for dizziness, 0 Refills, Maintenance, 01/26/14 9:32:57 EDT Start Date: 01/26/14 Status: Ordered metoclopramide 10 mg oral tablet 1 tablet = 10 mg, By Mouth, Daily, 0 Refills, Maintenance, 01/26/14 9:33:32 Start Date: 01/26/14 Status: Ordered metoprolol 50 mg oral tablet 1 tablet = 50 mg, By Mouth, 2 times a day, # 180 tablet, 0 Refills, Maintenance, 01/26/14 9:44:24, Tablet Start Date: 01/26/14 Status: Ordered Omeprazole = 20 mg, By Mouth, Daily, 0 Refills, Maintenance, 11/06/19 15:21:00 EST Start Date: 11/06/19 Status: Ordered Oxybutynin = 5 mg, By Mouth, 2 times a day, 0 Refills, Maintenance, 01/26/14 9:44:35 EDT Start Date: 01/26/14 Status: Ordered oxyCODONE 5 mg oral capsule 1 capsule = 5 mg, By Mouth, Every 6 hours, PRN as needed for pain, for 3 days, # 10 capsule, 0 Refills, Acute 04/09/20 12:26:00 EDT, 04/06/20 12:26:00 EDT, Capsule, [facility], Partial fill upon patient request, 156, cm, 04/06/20 8:12:00... Start Date: 04/06/20 Stop Date: 04/09/20 Status: Ordered ProAir HFA 90 mcg/inh inhalation aerosol with adapter 1, puffs, Inhalation, Every 6 hours, PRN, # 8.5 Gm, Refills 0, Maintenance, 11/06/19 15:20:00 EST, Aerosol Start Date: 11/06/19 Status: Ordered Ropinirole = 1 mg, By Mouth, Daily at bedtime, 0 Refills, Maintenance, 01/26/14 9:51:56 EDT Start Date: 01/26/14 Status: Ordered Simvastatin = 40 mg, By Mouth, Daily at bedtime, 0 Refills, Maintenance, 01/26/14 9:52:54 Start Date: 01/26/14 Status: Ordered Spiriva HandiHaler 18 mcg Inhalation Capsule See Instructions, 1 capsule Inhalation Daily, 0 Refills, Maintenance, 01/26/14 9:54:15, Capsule Start Date: 01/26/14 Status: Ordered Trazodone = 50 mg, By Mouth, Daily at bedtime, 0 Refills, Maintenance, 01/26/14 9:52:26 EDT Start Date: 01/26/14 Status: Ordered Zofran ODT 4 mg oral tablet, disintegrating See Instructions, PRN Nausea & Vomiting, 1 tablet By Mouth Every 4 hours as needed. May substitute for oral tablets if required by insurance, # 16 Doses, 0 Refills, Maintenance, 03/28/14 3:14:27,Tablet Start Date: 03/28/14 Status: Ordered Problem List Condition Effective Dates Status Health Status Inform ant AF - Paroxysmal atrial fibrillation(Confirmed) Active Chronic back pain(Confirmed) 1 Active Conversion disorder(Confirmed) 11/12/09 Active DIABETES MELLITUS(Confirmed) Active Diabetic gastroparesis(Confirmed) Active GERD - Gastro-esophageal ref lux disease(Confirmed) Active NO h/o CVA by MRI(Confirmed) Active History of DVT (deep vein thrombosis)(Confirmed) Active Major depression(Confirmed) Active Myofascial pain syndrome(Confirmed) Active Narcotic dependence, opiate seeking behavior(Confirmed) 2 11/29/13 Active Parastomal hernia(Confirmed) Active Pseudoseizures(Confirmed) Active PTSD (post-traumatic stress disorder)(Confirmed) Active Rapid gastric emptying(Confirmed) Active SVT - Supraventricular tachycardia(Confirmed)(Stable) 3 Active Unexplained weight loss(Confirmed) Active 1High dose narcotics at 310mg oxycodone daily; one incident of stolen medications 02/26/12 21-07-12 [facility]inated [facility] for violation of narcotic contract. 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 12-21-13 Opiate seeking behavior. Complex psychosocial issues. 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 Results Orders for Microbiology Reports Name Date Urine Culture (URINE CULTURE) 03/27/20 Microbiology Reports TEST:Urine Culture STATUS:Auth (Verified) BODY SITE: SOURCE:URINE COLLECTED DATE/TIME:03/27/20 11:57 PM Urine Culture SPECIMEN DESCRIPTION : URINE SPECIAL REQUESTS : NONE CULTURE : >100,000 COL/ML ESCHERICHIA COLI REPORT STATUS : FINAL 03/30/2020 ORGANISM >100,000 COL/ML ESCHERICHIA COLI METHOD MIN. INHIB. CONC. (MCG/ML) AMPICILLIN SUSCEPTIBLE AMPICILLIN/SULBACTAM SUSCEPTIBLE AMOXICILLIN/CLAVULAN SUSCEPTIBLE CEFAZOLIN SUSCEPTIBLE CEFEPIME SUSCEPTIBLE CEFTRIAXONE SUSCEPTIBLE CIPROFLOXACIN SUSCEPTIBLE ERTAPENEM SUSCEPTIBLE GENTAMICIN SUSCEPTIBLE LEVOFLOXACIN SUSCEPTIBLE MEROPENEM SUSCEPTIBLE NITROFURANTOIN SUSCEPTIBLE PIPERACILLIN/TAZOBAC SUSCEPTIBLE TRIMETH/SULFAMETHOX SUSCEPTIBLE TETRACYCLINE SUSCEPTIBLE Radiology Reports * Exam Date Time Procedure Performing Provider Status 03/31/20 1:05 PM Shoulder Min 2 Views Left Isabel Nava; Auth (Verified) Notes: (Shoulder Min 2 Views Left) Reason For Exam: Pain RESULT: Shoulder Min 2 Views Left Shoulder Min 2 Views Left, 2 views Reason: Pain; Clinical Question(s): Fracture. COMPARISON: Multiple prior left shoulder radiographs, the most recent of which is dated 12/21/2013. FINDINGS: No acute fracture or dislocation is seen. There is mild superior positioning of the humeral head toto the glenoid, unchanged from prior exam. No significant glenohumeral degenerative change. There is mild acromioclavicular degenerative change. Soft tissues appear unremarkable. IMPRESSION: Mild acromioclavicular degenerative change with no acute displaced fracture. WSN: [id number] Ordering Physician: Jeancarlos Weeks Dictated By: Lisa Guevara MD Dictated Date/Time: 03/31/20 2:02 pm Reviewed By: Lisa Guevara MD Signed By: Lisa Guevara MD Signed Date/Time: 03/31/20 2:02 pm Transcribed By: MARIA Transcribed Date/Time: 03/31/20 2:01 pm * Exam Date Time Procedure Performing Provider Status 03/29/20 11:07 AM Esophagus Barium Swallow Ra sudhakar Seth; Auth (Verified) Notes: (Esophagus Barium Swallow) Reason For Exam: Stricture Esophagus;Other: RESULT: Esophagus Barium Swallow PROCEDURE: Esophagus Barium Swallow CLINICAL INDICATION: r/o esophageal stricture COMPARISONS: None FLUOROSCOPY TIME: 1.4 Min Dose Area Product (DAP): 670.5 uGy*m2 TECHNIQUE: Barium contrast esophagram was performed by Ivonne Garcia CNP. FINDINGS: Swallow: Normal oral and pharyngeal phases with no laryngeal penetration or subglottic aspiration. Esophagus: Normal in contour and mucosal appearance. Tertiary contraction noted in the distal half of the esophagus. Prompt transit of liquid barium into the stomach. No hiatal hernia. Spontaneous gastroesophageal reflux was appreciated during the study. A 13 mm barium tablet passed unimpeded into the stomach. No evidence of esophageal web, narrowing or outpouching. No esophageal obstruction. The stomach and proximal duodenum are grossly normal. Contrast promptly empties from the stomach into a nondilated duodenum. No gastric outlet obstruction. IMPRESSION: Esophageal dysmotility. Spontaneous gastroesophageal reflux. By undersigning and finalizing the report, the attending radiologist confirms he/she has personallyreviewed and interpreted the images and agrees with the description of the findings. I have personally reviewed the images and I agree with this report. WSN: [id number] Ordering Physician: Inna Mccormack Dictated By: Ivonne Garcia NP Dictated Date/Time: 03/29/20 11:09 a Reviewed By: Jalen Rivera MD Signed By: Jalen Rivera MD Signed Date/Time: 03/29/20 11:14 am Transcribed By: MARIA Transcribed Date/Time: 03/29/20 10:57 am * Exam Date Time Procedure Performing Provider Status 03/27/20 6:38 PM Chest 2 Views Frontal and Lat Kovalenko , Vera; Auth (Verified) Notes: (Chest 2 Views Frontal and Lat) Reason For Exam: Chest Pain;Other: RESULT: Chest 2 Views Frontal and Lat Chest 2 Views Frontal and Lat INDICATION / CLINICAL QUESTION: Chest and left arm pain, lower extremity swelling, globus sensationand suspected UTI due to malodorous urine. COMPARISON: 11/06/2019 FINDINGS: LINES AND TUBES: None. LUNGS AND PLEURA: Clear lungs. Stable blunting right lateral CP angle. Normal vascularity. No edema. No pleural effusion. No pneumothorax. HEART, MEDIASTINUM AND ALEXUS: Normal. BONES AND SOFT TISSUES: No acute abnormality. IMPRESSION: No acute abnormality. WSN: [id number] Ordering Physician: Glenys Winslow Dictated By: Cesar Corenlius MD Dictated Date/Time: 03/27/20 6:49 pm Reviewed By: Cesar Cornelius MD Signed By: Cesar Cornelius MD Signed Date/Time: 03/27/20 6:49 pm Transcribed By: MARIA Transcribed Date/Time: 03/27/20 6:47 pm Vital Signs Most recent to oldest [Reference Range]: 1 2 3 Height 156 cm (04/06/20 8:12 AM) 156 cm (04/06/20 2:23 AM) 156 cm (04/05/20 10:23 PM) Weight 59.0 kg (04/06/20 2:23 AM) 58.6 kg (04/05/20 10:23 PM) 58 kg (03/28/20 5:01 PM) Oxygen Saturation [94-100 %] 96 % (04/06/20 8:12 AM) 96 % (04/06/20 2:23 AM) 98 % (04/05/20 10:23 PM) Pulse Rate [55-90 bpm] 73 bpm (04/06/20 11:23 AM) 71 bpm (04/06/20 8:12 AM) 64 bpm (04/06/20 2:23 AM) Body Mass Index [18.5-24.99] 24.24 (04/06/20 2:23 AM) 24.08 (04/05/20 10:23 PM) 23.83 (03/28/20 5:01 PM) Blood Pressure [90-138/55-84 mm Hg] 115/66mm Hg (04/06/20 8:12 AM) 107/56mm Hg (04/06/20 2:23 AM) 107/69mm Hg (04/05/20 10:23 PM) Respiratory Rate [16-30 br/min] 18 br/min (04/06/20 10:18 AM) 20 br/min (04/06/20 8:12 AM) 16 br/min (04/06/20 6:31 AM) Temperature [96.8-100.4 DegF] 98.2 DegF (04/06/20 8:12 AM) 97.7 DegF (04/06/20 2:23 AM) 98.3 DegF (04/05/20 10:23 PM) Liters per Minute 2 L/min (03/29/20 3:46 PM) Mode of Delivery (Oxygen) Room air (04/06/20 8:12 AM) Room air (04/06/20 2:23 AM) Room air (04/05/20 10:23 PM) Blood pressure sites Arm, right (04/06/20 8:12 AM) Arm, right (04/06/20 2:23 AM) Arm, right (04/05/20 10:23 PM) Temperature Route Oral (04/06/20 8:12 AM) Oral (04/06/20 2:23 AM) Oral (04/05/20 10:23 PM) Dry Weight 61.5 kg (04/01/20 9:18 PM) 58 kg (03/28/20 5:01 PM) 58 kg (03/28/20 8:16 AM) Weight Obtained Via Bed scale (04/06/20 2:23 AM) Bed scale (04/05/20 10:23 PM) Patient/family stated (03/27/20 5:55 PM) Dry Weight Obtained Via Bed scale (04/01/20 9:18 PM) Patient/family stated (03/27/20 5:55 PM) Social History Social History Type Response Smoking Status Never (less than 100 in lifetime) entered on: 11/14/18 Sex
--- OUTSIDE RECORDS SUMMARY | 2023-07-13 20:36 | XMS_ITS | Continuity of Care Document ---
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 Name Role Phone Not on Staff, PCP Primary Care Physician Unavail able Encounter [facility] Date(s): 02/26/20 - 03/27/20 [facility] [address] [place] [id number]- [facility] Attending Physician: Val Prakash Admitting Physician: AdmVal nino Referring Physician: Admtr, Ar8 Allergies, Adverse Reactions, Alerts Substance Reaction Severity [...] Depakote Active Glutens Allergy to seafood Active Rice severe vomiting Active Immunizations Given [...] without difficulty, tolerated well 2Result Comment: lot #[id number] exp 10/03/06 Medications amitriptyline 25 mg oral tablet 25 mg, [...] 9:48:27 EST Start Date: 11/14/18 Status: Ordered Enoxaparin = 40 mg, Subcutaneous Injection, Every 12 hours, 0 Refills, Maintenance, 01/26/14 9:57:38 EDT Start Date: 01/26/14 Status: Ordered fluticasone-vilanterol Inhalation, Daily, 0 Refills, Maintenance, 11/07/19 15:22:00 EST, Inhaler Start Date: 11/07/19 Status: Ordered Keppra 500 mg oral tablet 1 tablet = 500 mg, By Mouth, 2 times a day, # 180 tablet, 0 Refills, Maintenance, 09/26/19 15:05:00EST, Tablet Start Date: 09/26/19 Status: Ordered levothyroxine 0.05 mg oral tablet 1 tablet = 50 mcg, By Mouth, Daily, # 90 tablet, 0 Refills, Maintenance, 11/06/19 15:24:00 EST, Tablet Start Date: 11/06/19 Status: Ordered meclizine 12.5 mg oral tablet [...] 1 capsule = 5 mg, By Mouth, 2 times a day, PRN as needed for pain, 0 Refills, Maintenance, 11/06/2014:31:00 EST, Capsule, Partial fill upon patient request Start Date: 11/06/19 Status: Ordered ProAir HFA 90 mcg/inh inhalation [...]
--- OUTSIDE RECORDS SUMMARY | 2023-07-13 20:36 | XMS_ITS | Continuity of Care Document ---
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 Role Phone Conrado PAUL, Bob Luis Primary Care Physic lisa Encounter [facility] Date(s): 05/16/20 - 05/18/[address] [address]- [facility] Encounter Diagnosis UTI (urinary tract infection)(Final) - 05/15/20 Discharge Disposition: A-D/C Home Attending Physician: Clovis Mendoza MD Admitting Physician: Inna Mccormack MD Referring Physician: Not on Staff, Referring [...] without difficulty, tolerated well 2Result Comment: lot #[id number] exp 10/03/06 Medications amitriptyline 25 mg oral tablet 25 mg, 1, tablet, By Mouth, Daily at bedtime, Refills 0, Maintenance, 09/26/19 15:09:00 EST Start Date: 09/26/19 Status: Ordered aspirin 81 mg oral delayed release tablet 81 mg, 1, tablet, By Mouth, Daily, # 30 tablet, Refills 0, Maintenance, 09/26/19 15:04:00 EST Start Date: 09/26/19 Status: Ordered Catheter Supplies See Instructions, # 4 each, Maintenance, Perform clean intermittent straight catheterization every 6 hours 4 times daily., 05/18/20 10:00:00 EDT, Supply, 155, cm, 05/18/20 7:48:00 EDT, Height, 55.4, kg, 05/16/20 11:57:00 EDT, Dry Weight Start Date: 05/18/20 Status: Ordered Catheters for clean intermittent straight catheterization and ostomy supplies Catheters for clean intermittent straight catheterization and ostomy supplies, See Instructions, # 1 each, Refills 0, Tot. Refills 0, Maintenance, Please provide patient with 5 catheters for clean intermittent straight catheterization, and the ostomy... Start Date: 05/18/20 Status: Ordered clonazePAM 0.5 mg oral tablet [...] 13:59:00EDT Start Date: 03/29/20 Status: Ordered enoxaparin 60 mg/0.6 mL injectable solution 0.6 mL = 60 mg, Subcutaneous Injection, 2 times a day, # 30 each, 0 Refills, Maintenance, 05/18/20 10:09:00 EDT, Injection, [facility], 155, cm, 05/18/20 7:48:00 EDT, Height, 55.4, kg, 05/16/20 11:57:00 EDT, Dry Weight Start Date: 05/18/20 Status: Ordered Keppra 500 mg oral tablet 1 tablet = 500 mg, By Mouth, 2 times a day, # 60 tablet, 0 Refills, Maintenance, 04/15/20 15:49:00 EDT, Tablet Start Date: 04/15/20 Status: Ordered levothyroxine 0.05 mg oral tablet [...] Mouth, Daily, 0 Refills, Maintenance, 01/26/14 9:33:32 EDT Start Date: 01/26/14 Status: Ordered Ostomy Equipment See Instructions, # 1 each, Maintenance, As directed, 05/18/20 10:01:00 EDT, Supply, 155, cm, 05/18/20 7:48:00 EDT, Height, 55.4, kg, 05/16/20 11:57:00 EDT, Dry Weight Start Date: 05/18/20 Status: Ordered Oxybutynin = 5 mg, By Mouth, 2 times a day, 0 Refills, Maintenance, 01/26/14 9:44:35 EDT Start Date: 01/26/14 Status: Ordered ProAir HFA 90 mcg/inh inhalation [...] at bedtime, 0 Refills, Maintenance, 01/26/14 9:52:54 EDT Start Date: 01/26/14 Status: Ordered tiZANidine 4 mg oral tablet 2 mg, 0.5, tablet, By Mouth, 3 times a day, Refills 0, Maintenance, 04/11/20 15:15:00 EDT Start Date: 04/11/20 Stop Date: 04/18/20 Status: Ordered Trazodone = 50 mg, By [...] Results Orders for Microbiology Reports Name Date Blood Culture 05/15/20 Blood Culture #2 05/15/20 Urine Culture (URINE CULTURE) 05/15/20 Microbiology Reports TEST:Blood Culture, Second Order STATUS:Unauthenticated BODY SITE: SOURCE:Blood COLLECTED DATE/TIME:05/15/20 5:10 PM Blood Culture, Second Order SPECIMEN DESCRIPTION : BLOOD R WRIST SPECIAL REQUESTS : NONE CULTURE : NO GROWTH 3 DAYS REPORT STATUS : PRELIMINARY REPORT TEST:Blood Culture STATUS:Unauthenticated BODY SITE: SOURCE:Blood COLLECTED DATE/TIME:05/15/20 5:00 PM Blood Culture SPECIMEN DESCRIPTION : BLOOD LAC SPECIAL REQUESTS : NONE CULTURE : NO GROWTH 3 DAYS REPORT STATUS : PRELIMINARY REPORT TEST:Urine Culture STATUS:Auth (Verified) BODY SITE: SOURCE:URINE COLLECTED DATE/TIME:05/15/20 3:30 PM Urine Culture SPECIMEN DESCRIPTION : URINE SPECIAL REQUESTS : NONE CULTURE : >100,000 COL/ML ESCHERICHIA COLI REPORT STATUS : FINAL 05/17/2020 ORGANISM >100,000 COL/ML ESCHERICHIA COLI METHOD MIN. INHIB. CONC. (MCG/ML) AMPICILLIN RESISTANT AMPICILLIN/SULBACTAM SUSCEPTIBLE AMOXICILLIN/CLAVULAN SUSCEPTIBLE CEFAZOLIN SUSCEPTIBLE CEFEPIME SUSCEPTIBLE CEFTRIAXONE SUSCEPTIBLE CIPROFLOXACIN SUSCEPTIBLE ERTAPENEM SUSCEPTIBLE GENTAMICIN SUSCEPTIBLE LEVOFLOXACIN SUSCEPTIBLE MEROPENEM SUSCEPTIBLE NITROFURANTOIN SUSCEPTIBLE PIPERACILLIN/TAZOBAC SUSCEPTIBLE TRIMETH/SULFAMETHOX SUSCEPTIBLE TETRACYCLINE SUSCEPTIBLE Radiology Reports * Exam Date Time Procedure Performing Provider Status 05/15/20 4:19 PM Chest Portable Carol Palacios; Judy (Verified) Notes: (Chest Portable) Reason For Exam: abdominal pain;Other: RESULT: Chest Portable Chest Portable Hx of Present Illness: AP N V dysuria x3 days. Increase stool output from ostomy w some blood notedtwo days ago. Denies SOB CP.; Reason: Other:; abdominal pain; Clinical Question(s): Pneumonia COMPARISON: Chest x-ray from 04/10/2020. FINDINGS: LINES AND TUBES: None. LUNGS AND PLEURA: Chronic elevation of right diaphragm with minimal atelectasis at the right base unchanged. The left lung is clear. Normal pulmonary vascularity. No pleural effusion. No pneumothorax. HEART, MEDIASTINUM AND ALEXUS: Heart is normal in size. Normal mediastinal and hilar contour. BONES AND SOFT TISSUES: No acute abnormality. IMPRESSION: No acute abnormality. No change from prior exam. WSN: [id number] Ordering Physician: Susan Jonas Dictated By: Jalen Oconnell MD Dictated Date/Time: 05/15/20 4:30 pm Reviewed By: Jalen Oconnell MD Signed By: Jalen Oconnell MD Signed Date/Time: 05/15/20 4:30 pm Transcribed By: MARIA Transcribed Date/Time: 05/15/20 4:29 pm Vital Signs Most recent to oldest [Reference Range]: 1 2 3 Height 155 cm (05/18/20 7:48 AM) 155 cm (05/18/20 3:10 AM) 155 cm (05/17/20 9:22 PM) Weight 55.9 kg (05/17/20 12:29 PM) 55.9 kg (05/16/20 8:05 PM) 55.4 kg (05/16/20 11:58 AM) Oxygen Saturation [94-100 %] 96 % (05/18/20 7:48 AM) 99 % (05/18/20 3:10 AM) 100 % (05/17/20 9:22 PM) Pulse Rate [55-90 bpm] 66 bpm (05/18/20 7:48 AM) 68 bpm (05/18/20 3:10 AM) 69 bpm (05/17/20 9:22 PM) Body Mass Index [18.5-24.99] 23.06 (05/16/20 11:58 AM) Blood Pressure [90-138/55-84 mm Hg] 95/65mm Hg (05/18/20 7:48 AM) 92/58mm Hg (05/18/20 3:10 AM) 92/54mm Hg (05/17/20 9:22 PM) Respiratory Rate [16-30 br/min] 16 br/min (05/18/20 7:48 AM) 16 br/min (05/18/20 3:10 AM) 18 br/min (05/17/20 9:22 PM) Temperature [96.8-100.4 DegF] 97.4 DegF (05/18/20 7:48 AM) 97.6 DegF (05/18/20 3:10 AM) 97.8 DegF (05/17/20 9:22 PM) Liters per Minute 0 L/min (05/15/20 1:55 PM) Mode of Delivery (Oxygen) Room air (05/18/20 7:48 AM) Room air (05/18/20 3:10 AM) Room air (05/17/20 9:22 PM) Blood pressure sites Arm, right (05/18/20 7:48 AM) Arm, right (05/18/20 3:10 AM) Arm, right (05/17/20 9:22 PM) Temperature Route Oral (05/18/20 7:48 AM) Oral (05/18/20 3:10 AM) Oral (05/17/20 9:22 PM) Dry Weight 55.4 kg (05/16/20 11:58 AM) Weight Obtained Via Bed scale (05/16/20 8:05 PM) Patient/family stated (05/16/20 11:58 AM) Social History Social History Type Response Smoking Status Never (less than 100 in lifetime) entered on: 11/14/18 Sex
--- OUTSIDE RECORDS SUMMARY | 2023-07-13 20:36 | XMS_ITS | Continuity of Care Document ---
Author Name Unknown Organization [facility] Address [address] [place] [address]- Care Team Providers Care Stone Engraver Name Role Phone Conrado PAUL, Bob Luis Primary Care Physic lisa [place] [facility] [place]26[place]22 - 02/25/22 [facility] [address] [place] [address]- Attending Physician: Val Prakash Admitting Physician: Val Prakash Referring Physician: Val Prakash Referring Physician: Mounika Hager Allergies, Adverse Reactions, Alerts Substance Reaction Severity [...] and Recorded Vaccine Date Status Refusal Reason SARS-CoV-2 mRNA (qrnzpdh-dcnl-bzsnv) vax 02/25/22 Given SARS-CoV-2 mRNA (qlqpzlz-zjdd-ppxpl) vax 1 12/11/21 Given influenza virus vaccine, inactivated 11/27/21 Give n influenza virus vaccine, inactivated 05/23/19 Mahendra rded influenza virus vaccine, inactivated 06/08/18 Mahendra rded influenza virus vaccine, inactivated 11/13/09 Give n influenza virus vaccine, inactivated 2 09/06/08 Gi juanita influenza virus vaccine, inactivated 3 10/03/06 Gi juanita pneumococcal 13-valent vaccine 05/07/20 Recorded Zoster Vaccine Live 12/30/18 Recorded zoster vaccine, inactivated 06/15/18 Recorded Tet/diphth/pertussis, acel (oldterm) 03/19/12 Give n influ virus vac, H1N1, inactive(oldterm) 10/24/09 Given Pneumococcal Poly (PPV23) (oldterm) 06/14/06 Given Pneumococcal Vaccine (oldterm) 06/14/06 Given Not Given Vaccine Date Status Refusal Reason pneumococcal 23-valent vaccine 04/29/20 Not Given Patient Refuses 1Early/Late Reason: Early/Late Reason: Med Not Available 2Admin Note: given without difficulty, tolerated well 3Result Comment: lot #[id number] exp 10/03/06 Medications amitriptyline 25 mg oral tablet 25 mg, 1, tablet, By Mouth, Daily at bedtime, Maintenance, 09/01/21 15:50:00 EST, ; Start Date: 09/01/21 Status: Ordered dicyclomine 20 mg oral tablet 1 tablet = 20 mg, By Mouth, 2 times a day, # 60 tablet, 0 Refills, Maintenance, 11/06/21 11:49:00 EST, Tablet, [facility], Partial fill upon patient request if the prescription is for aschedule II opioid drug., 155, cm, 09/03/21 8:09:00... Start Date: 11/06/21 Status: Ordered digoxin 0.125 mg oral tablet 125 mcg, 1, tablet, By Mouth, Daily, # 30 tablet, Refills 1, Tot. Refills 1, Maintenance, 12/28/21 8:43:00 EDT, Route to Pharmacy Electronically, [id number], Partial fill upon patient requestif the prescription is for a schedule II opioid brian... Start Date: 12/28/21 Status: Ordered duloxetine 60 mg oral enteric [...] 0 Refills, Maintenance, 11/29/21 15:19:00 EST, Solution, [facility], Partial fill upon patient request if the prescription is for a schedule II opioid drug., 155, cm, 09/03/21 8:09:00 E... Start Date: 11/29/21 Stop Date: 12/29/21 Status: Ordered levothyroxine 0.05 mg oral tablet 1 tablet = 50 mcg, By Mouth, Daily, 0 Refills, Maintenance, 11/06/19 15:24:00 EST, Tablet Start Date: 11/06/19 Status: Ordered loperamide 2 mg oral capsule 2 mg, 1, capsule, By Mouth, Every 4 hours, PRN, # 60 capsule, Refills 0, Maintenance, for loose stool, 02/24/22 1:01:00 EDT, Partial fill upon patient request if the prescription is for a schedule IIopioid drug. Start Date: 02/24/22 Status: Ordered loratadine 10 mg oral tablet 10 mg, 1, tablet, By Mouth, Daily, Refills 0, Maintenance, 03/29/20 13:59:00 EDT Start Date: 03/29/20 Status: Ordered magnesium oxide 400 mg oral tablet 1 tablet = 400 mg, By Mouth, Daily, # 10 tablet, 0 Refills, Maintenance, 02/24/22 1:01:00 EDT, Tablet, Partial fill upon patient request if the prescription is for a schedule II opioid drug. Start Date: 02/24/22 Stop Date: 03/06/22 Status: Ordered oxybutynin 5 mg oral tablet 1 tablet = 5 mg, By Mouth, 2 times a day, 0 Refills, Maintenance, 09/01/21 15:51:00 EST, ; Start Date: 09/01/21 Status: Ordered oxyCODONE 5 mg oral tablet 20 mg, 4, tablet, By Mouth, Every 6 hours, # 28 tablet, Refills 0, Tot. Refills 0, Maintenance, 12/16/21 15:33:00 EDT, Route to Pharmacy Electronically, [facility], Partial fill upon patient request if the prescription is for a schedule... Start Date: 12/16/21 Status: Ordered Potassium Chloride (Qiq-Btie-Yty M10) 10 mEq oral tablet, extended release 0 Refills, Maintenance, 02/24/22 1:01:00 EDT, Partial fill upon patient request if the prescriptionis for a schedule II opioid drug. Start Date: 02/24/22 Status: Ordered ProAir HFA 90 mcg/inh inhalation aerosol with adapter 1, puffs, Inhalation, Every 6 hours, PRN, # 8.5 Gm, Refills 0, Maintenance, 11/06/19 15:20:00 EST, Aerosol Start Date: 11/06/19 Status: Ordered Protonix 40 mg oral delayed release tablet = 40 mg, By Mouth, Daily, # 30 tablet, 8 Refills, Maintenance, 12/16/21 15:33:00 EDT, EC Tablet, 155, cm, 12/15/21 19:17:00 EDT, Height, 51.5, kg, 12/10/21 16:21:00 EDT, Dry Weight Start Date: 12/16/21 Status: Ordered rOPINIRole 1 mg oral tablet 1 tablet = 1 mg, By Mouth, Daily at bedtime, Maintenance, 09/01/21 15:51:00 EST, ; Start Date: 09/01/21 Status: Ordered simvastatin 40 mg oral tablet 40 mg, 1, tablet, By Mouth, Daily at bedtime, # 30 tablet, Refills 1, Tot. Refills 1, Maintenance, 11/06/21 11:44:00 EST, Route to Pharmacy Electronically, [facility], Partial fill uponpatient request if the prescription is for a schedu... Start Date: 11/06/21 Status: Ordered Symbicort 80mcg/4.5mcg Inhaler 2, puffs, Inhalation, 2 times a day, # 1 each, Refills 0, Tot. Refills 0, Maintenance, 11/06/21 11:43:00 EST, Inhaler, Route to Pharmacy Electronically, [id number], [facility], 155, cm, 09/03/21 8:09:00 EST, Hei... Start Date: 11/06/21 Status: Ordered traZODone 50 mg oral tablet 50 mg, 1, tablet, By Mouth, Daily at bedtime, # 30 tablet, Refills 0, Tot. Refills 0, Maintenance, 11/06/21 11:44:00 EST, Route to Pharmacy Electronically, [facility], Partial fill uponpatient request if the prescription is for a schedu... Start Date: 11/06/21 Status: Ordered walker with wheels walker with wheels, See Instructions, # 1 each, Refills 0, Tot. Refills 0, Maintenance, Walker withwheels to improve balance, fall prevention, 11/29/21 14:50:00 EST, Supply Start Date: 11/29/21 Status: Ordered Problem List Condition Effective Dates [...]
--- OUTSIDE RECORDS SUMMARY | 2023-07-13 20:36 | XMS_ITS | Continuity of Care Document ---
Author Name Unknown Organization [facility] ter Address [address] [place] [id number]- Care Team Providers Care Compliance Assistant Name Role Phone Conrado PAUL, Bob Luis Primary Care Physic lisa [place] [facility] [place] 03/27/20 - 05/06/[address] [address]- [facility] Attending Physician: Ji Del Toro MD Admitting Physician: Ji Del Toro MD Referring Physician: Ji Del Toro MD Allergies, Adverse Reactions, Alerts Substance Reaction [...] without difficulty, tolerated well 2Result Comment: lot #[id number] exp 10/03/06 Medications amitriptyline 25 mg oral [...] 03/29/20 13:59:00EDT Start Date: 03/29/20 Status: Ordered Keppra 500 mg oral tablet [...] 9:33:32 EDT Start Date: 01/26/14 Status: Ordered Oxybutynin = 5 mg, By [...]
--- OUTSIDE RECORDS SUMMARY | 2023-07-13 20:36 | XMS_ITS | Continuity of Care Document ---
Author Name Unknown Organization [facility] ter Address [address] [place] [address]- Care Team Providers Care Radiographer Angiogram Name Role Phone Conrado PAUL, Bob Luis Primary Care Physic lisa Encounter [facility] [place] Date(s): 04/05/20 - 07/15/[address] [address]- [facility] Attending Physician: Mao Larkin MD Admitting Physician: Mao Larkin MD Allergies, Adverse Reactions, Alerts Substance Reaction [...] without difficulty, tolerated well 2Result Comment: lot #[id number] exp 10/03/06 Medications amitriptyline 25 mg oral [...] 0 Refills, Maintenance, 05/18/20 10:09:00 EDT, Injection, [facility], 155, cm, 05/18/20 7:48:00 EDT, [...]
--- OUTSIDE RECORDS SUMMARY | 2023-07-13 20:36 | XMS_ITS | Continuity of Care Document ---
Author Name Unknown Organization [facility] Address [address] [place] [id number]- Care Team Providers Care Cyberathlete Name Role Phone Conrado PAUL, Bob Luis Primary Care Physic lisa Encounter [facility] Date(s): 12/27/21 - 01/26/22 [facility] [address] [place] [address]- [place] Allergies, Adverse Reactions, Alerts Substance Reaction Severity Status codeine n-v Active doxycycline n-v rash Active tetracycline n-v rash Active levofloxacin n-v Active clindamycin n-v rash Active erythromycin n-v rash Active rifampin n-v rash Active oxacillin n-v rash Active amoxicillin n-v rash Amoxycillin allergy Active penicillin anaphylaxis rash Active vancomycin n-v rash Active gabapentin States breathing difficulty and itchiness from med Severe Active sulfa drugs n-v rash Active Levaquin n-v rash Active Depakote Active Seafood Active Glutens Allergy to seafood Active Rice severe vomiting Active Immunizations Given and Recorded Vaccine Date Status Refusal Reason SARS-CoV-2 mRNA (nooasov-fhlz-blzwl) vax 1 12/11/21 Given influenza virus vaccine, [...] without difficulty, tolerated well 3Result Comment: lot #[id number] exp 10/03/06 Medications amitriptyline 25 mg oral tablet 25 mg, 1, tablet, By Mouth, Daily at bedtime, Maintenance, 09/01/21 15:50:00 EST, ; Start Date: 09/01/21 Status: Ordered aspirin 81 mg oral delayed release tablet 81 mg, 1, tablet, By Mouth, Daily, # 30 tablet, Refills 1, Tot. Refills 1, Maintenance, 11/06/21 11:43:00 EST, Route to Pharmacy Electronically, [facility], Partial fill upon patient request if the prescription is for a schedule II opioi... Start Date: 11/06/21 Status: Ordered clonazePAM 0.5 mg oral tablet 0.5 tablet = 0.25 mg, By Mouth, Daily, PRN Anxiety, # 15 tablet, 1 Refills, Maintenance, 11/06/21 11:43:00 EST, Tablet, [facility], Partial fill upon patient request if the prescriptionis for a schedule II opioid drug., 155, cm, ... Start Date: 11/06/21 Stop Date: 01/05/22 Status: Ordered dicyclomine 20 mg oral tablet 1 tablet = 20 mg, By Mouth, 2 times a day, # 60 tablet, 0 Refills, Maintenance, 11/06/21 11:49:00 EST, Tablet, [facility], Partial fill upon patient request if the prescription is for aschedule II opioid drug., 155, cm, 09/03/21 8:09:00... Start Date: 11/06/21 Status: Ordered digoxin 0.125 mg oral tablet 125 mcg, 1, tablet, By Mouth, Daily, # 30 tablet, Refills 1, Tot. Refills 1, Maintenance, 12/28/21 8:43:00 EDT, [id number] Partial fill upon patient requestif the [...] opioid drug. Start Date: 09/03/21 Status: Ordered enoxaparin 60 mg/0.6 mL injectable solution 0.6 mL = 60 mg, Subcutaneous Injection, Every 12 hours, # 60 each, 0 Refills, Maintenance, 11/06/2210:50:00 EST, Injection, [facility], Partial fill upon patient request if the prescription is for a schedule II opioid drug., 155, cm, 12... Start Date: 11/06/21 Status: Ordered enoxaparin 80 mg/0.8 mL injectable solution = 80 mg, Subcutaneous Injection, Daily, *Note: Treatment = 1.5mg/kg/day, renal dosing = 1mg/kg/day*, # 7 each, 0 Refills, Maintenance, 12/10/21 16:20:00 EDT, Partial fill upon patient request if the prescription is for a schedule II opioid drug. Start Date: 12/10/21 Status: Ordered levETIRAcetam 100 mg/mL oral solution 7.5 mL = 750 mg, By Mouth, 2 times a day, # 450 mL, 0 Refills, Maintenance, 11/29/21 15:19:00 EST, Solution, [facility], Partial fill upon patient [...] 13:59:00 EDT Start Date: 03/29/20 Status: Ordered oxybutynin 5 mg oral tablet 1 tablet = 5 mg, By Mouth, 2 times a day, 0 Refills, Maintenance, 09/01/21 15:51:00 EST, ; Start Date: 09/01/21 Status: Ordered oxyCODONE 5 mg oral tablet 20 mg, 4, tablet, By Mouth, Every 6 hours, # 28 tablet, Refills 0, Tot. Refills 0, Maintenance, 12/16/21 15:33:00 EDT, Route to Pharmacy Electronically, [facility], Partial fill upon patient request if the prescription is for a schedule... Start Date: 12/16/21 Status: Ordered ProAir HFA 90 mcg/inh inhalation [...] 11/06/21 11:44:00 EST, Route to Pharmacy Electronically, [facility], Partial fill uponpatient request if the prescription is for a schedu... Start Date: 11/06/21 Status: Ordered Symbicort 80mcg/4.5mcg Inhaler 2, puffs, Inhalation, 2 times a day, # 1 each, Refills 0, Tot. Refills 0, Maintenance, 11/06/21 11:43:00 EST, Inhaler, Route to Pharmacy Electronically, [id number][facility], 155, cm, 09/03/21 8:09:00 EST, Hei... Start Date: 11/06/21 Status: Ordered traZODone 50 mg oral tablet 50 mg, 1, tablet, By Mouth, Daily at bedtime, # 30 tablet, Refills 0, Tot. Refills 0, Maintenance, 11/06/21 11:44:00 EST, Route to Pharmacy Electronically, [facility], Partial fill uponpatient request [...] (less than 100 in lifetime) entered on: 11/26/21 Sex
--- OUTSIDE RECORDS SUMMARY | 2023-07-13 20:36 | XMS_ITS | Continuity of Care Document ---
Author Name Unknown Organization [facility] Address Unknown Care Team Providers Care Principal Consulting Engineer Name Role Phone Conrado PAUL, Bob Luis Primary Care Physic lisa Encounter [facility] Date(s): 12/20/21 - 02/16/22 [facility] Attending Physician: Rosette Mike MD Referring Physician: Conrado PAUL, Bob Luis Allergies, Adverse Reactions, Alerts Substance Reaction Severity [...] n-v rash Active Depakote Active Seafood Active Rice severe vomiting Active Glutens Allergy to seafood Active Immunizations Given and Recorded Vaccine Date Status Refusal Reason SARS-CoV-2 mRNA (hgvxoaq-nghd-nnntq) vax 1 12/11/21 Given influenza virus vaccine, [...] without difficulty, tolerated well 3Result Comment: lot #[id number] exp 10/03/06 Medications amitriptyline 25 mg oral tablet 25 mg, 1, tablet, By Mouth, Daily at bedtime, Maintenance, 09/01/21 15:50:00 EST, ; Start Date: 09/01/21 Status: Ordered aspirin 81 mg oral delayed release tablet 81 mg, 1, tablet, By Mouth, Daily, # 30 tablet, Refills 1, Tot. Refills 1, Maintenance, 11/06/21 11:43:00 EST, Route to Pharmacy Electronically, [facility], Partial fill upon patient request if the prescription is for a schedule II opioi... Start Date: 11/06/21 Status: Ordered clonazePAM 0.5 mg oral tablet 0.5 tablet = 0.25 mg, By Mouth, Daily, PRN Anxiety, # 15 tablet, 1 Refills, Maintenance, 11/06/21 11:43:00 EST, Tablet, [facility], Partial fill upon patient request if the prescriptionis for a schedule II opioid drug., 155, cm, ... Start Date: 11/06/21 Stop Date: 01/05/22 Status: Ordered dicyclomine 20 mg oral tablet 1 tablet = 20 mg, By Mouth, 2 times a day, # 60 tablet, 0 Refills, Maintenance, 11/06/21 11:49:00 EST, Tablet, [facility], Partial fill upon patient request if the prescription is for aschedule II opioid drug., 155, cm, 09/03/21 8:09:00... Start Date: 11/06/21 Status: Ordered digoxin 0.125 mg oral tablet 125 mcg, 1, tablet, By Mouth, Daily, # 30 tablet, Refills 1, Tot. Refills 1, Maintenance, 12/28/21 8:43:00 EDT, Route to Pharmacy Electronically, [id number], Partial fill upon patient requestif the [...] each, 0 Refills, Maintenance, 11/06/2210:50:00 EST, Injection, [facility], Partial fill upon patient [...] 0 Refills, Maintenance, 11/29/21 15:19:00 EST, Solution, [facility], Partial fill upon patient [...] 12/16/21 15:33:00 EDT, Route to Pharmacy Electronically, [facility], Partial fill upon patient request if [...] 11/06/21 11:44:00 EST, Route to Pharmacy Electronically, [facility], Partial fill uponpatient request if the prescription is for a schedu... Start Date: 11/06/21 Status: Ordered Symbicort 80mcg/4.5mcg Inhaler 2, puffs, Inhalation, 2 times a day, # 1 each, Refills 0, Tot. Refills 0, Maintenance, 11/06/21 11:43:00 EST, Inhaler, Route to Pharmacy Electronically, [id number], [facility], 155, cm, 09/03/21 8:09:00 EST, Hei... Start Date: 11/06/21 Status: Ordered traZODone 50 mg oral tablet 50 mg, 1, tablet, By Mouth, Daily at bedtime, # 30 tablet, Refills 0, Tot. Refills 0, Maintenance, 11/06/21 11:44:00 EST, Route to Pharmacy Electronically, [facility], Partial fill uponpatient request [...]
--- OUTSIDE RECORDS SUMMARY | 2023-07-13 20:36 | XMS_ITS | Continuity of Care Document ---
Author Name Unknown Organization [facility] ter Address [address] [place] [address]- Care Team Providers Care Ceramic Designer Name Role Phone Conrado PAUL, Bob Luis Primary Care Physic lisa Encounter [facility] [place] Date(s): 07/08/20 - 07/09/[address] [address]- [facility] Encounter Diagnosis UTI symptoms(Final) - 07/09/20 Enteritis(Final) - 07/09/20 Colostomy care(Final) - 07/09/20 Discharge Disposition: A-D/C Home Attending Physician: Brianna Coyle MD Admitting Physician: Rivera Gann MD Referring Physician: Not on Staff, Referring [...] without difficulty, tolerated well 2Result Comment: lot #[id number] exp 10/03/06 Medications amitriptyline 25 mg oral [...] 0 Refills, Maintenance, 05/18/20 10:09:00 EDT, Injection, [facility], 155, cm, 05/18/20 7:48:00 EDT, [...] 9:52:54 EDT Start Date: 01/26/14 Status: Ordered sulfamethoxazole-trimethoprim 800 mg-160 mg oral tablet 1 tablet, By Mouth, 2 times a day, for 5 days, # 10 tablet, 0 Refills, Acute 07/14/20 10:34:00 EDT,07/09/20 10:34:00 EDT, Tablet, [facility][id number], 1 tablet By Mouth 2 times a day,x5 days, 155, cm, 07/09/20 8:16:00 EDT, Height, 58.6, kg, 07/09/20 5... Start Date: 07/09/20 Stop Date: 07/14/20 Status: Ordered tiZANidine 4 mg oral tablet [...] psychosocial issues. 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 COMPARISON: 05/15/2020 FINDINGS: LINES AND TUBES: None. LUNGS AND PLEURA: Unchanged blunting of the right costophrenic angle. Lungs otherwise clear. No pneumothorax. HEART, MEDIASTINUM AND ALEXUS: Heart is normal in size. Normal mediastinal and hilar contour. BONES AND SOFT TISSUES: No acute abnormality. IMPRESSION: No acute findings with unchanged blunting of the right costophrenic angle. WSN: [id number] Ordering Physician: Christiano Quiroga Dictated By: Jack Portillo DO Dictated Date/Time: 07/08/20 8:07 pm Reviewed By: Jack Portillo DO Signed By: Jack Portillo DO Signed Date/Time: 07/08/20 8:07 pm Transcribed By: MARIA Transcribed Date/Time: 07/08/20 8:06 pm Vital Signs Most recent to oldest [Reference Range]: 1 2 3 Height 155 cm (07/09/20 8:16 AM) 155 cm (07/09/20 5:47 AM) Weight 58.6 kg (07/09/20 5:47 AM) Oxygen Saturation [94-100 %] 100 % (07/09/20 8:16 AM) 98 % (07/09/20 4:38 AM) 99 % (07/09/20 2:11 AM) Pulse Rate [55-90 bpm] 98 bpm *H* (07/09/20 8:16 AM) 66 bpm (07/09/20 4:38 AM) 70 bpm (07/09/20 2:11 AM) Body Mass Index [18.5-24.99] 24.39 (07/09/20 5:47 AM) Blood Pressure [90-138/55-84 mm Hg] 98/63mm Hg (07/09/20 8:16 AM) 114/83mm Hg (07/09/20 2:11 AM) 104/65mm Hg (07/08/20 11:14 PM) Respiratory Rate [16-30 br/min] 18 br/min (07/09/20 8:18 AM) 16 br/min (07/09/20 8:16 AM) 18 br/min (07/09/20 7:55 AM) Temperature [96.8-100.4 DegF] 97.7 DegF (07/09/20 8:16 AM) 98.9 DegF (07/09/20 2:11 AM) 98.8 DegF (07/08/20 10:17 PM) Liters per Minute 0 L/min (07/09/20 2:11 AM) 0 L/min (07/08/20 11:14 PM) Mode of Delivery (Oxygen) Room air (07/09/20 8:16 AM) Room air (07/09/20 4:38 AM) Room air (07/09/20 2:11 AM) Blood pressure sites Arm, left (07/09/20 8:16 AM) Arm, left (07/08/20 10:17 PM) Arm, left (07/08/20 6:18 PM) Temperature Route Oral (07/09/20 8:16 AM) Oral (07/09/20 2:11 AM) Oral (07/08/20 10:17 PM) Dry Weight 58.6 kg (07/09/20 5:47 AM) Dry Weight Obtained Via Bed scale (07/09/20 5:47 AM) Social History Social History Type Response Smoking Status Never (less than 100 in lifetime) entered on: 11/14/18 Sex
--- OUTSIDE RECORDS SUMMARY | 2023-07-13 20:36 | XMS_ITS | Continuity of Care Document ---
Author Name Unknown Organization [facility] ter Address [address] [place] [id number]- Care Team Providers Care Commodity Specialist Name Role Phone Conrado PAUL, Bob Luis Primary Care Physic lisa Encounter [facility] [place] Date(s): 06/30/21 - 07/07/[address] [address]- Discharge Disposition: A-D/C Home Attending Physician: Shola Snider MD Admitting Physician: Talya Choi MD Referring Physician: Not on Staff, Referring MD Allergies, Adverse Reactions, Alerts Substance Reaction Severity Status codeine n-v Active gabapentin States breathing difficulty and itchiness from med Severe Active doxycycline n-v rash Active tetracycline n-v rash Active levofloxacin n-v Active clindamycin n-v rash Active erythromycin n-v rash Active rifampin n-v rash Active oxacillin n-v rash Active amoxicillin n-v rash Amoxycillin allergy Active penicillin anaphylaxis rash Active vancomycin n-v rash Active sulfa drugs n-v rash Active Levaquin [...] without difficulty, tolerated well 2Result Comment: lot [id number] exp 10/03/06 Medications amitriptyline 10 mg oral tablet 35 mg, 3.5, tablet, By Mouth, Daily at bedtime, # 105 tablet, Refills 0, Tot. Refills 0, Maintenance, 07/07/21 12:49:00 EDT, Route to Pharmacy Electronically, [facility], Partial fill upon patient request if the prescription is for a chan... Start Date: 07/07/21 Stop Date: 08/06/21 Status: Ordered aspirin 81 mg oral delayed [...] 9:48:27 EST Start Date: 11/14/18 Status: Ordered digoxin 0.125 mg oral tablet 125 mcg, Tablet, By Mouth, 07/07/21 16:00:00 EDT Start Date: 07/07/21 Stop Date: 07/07/21 Status: Completed diphenhydrAMINE 25 mg oral capsule 2 capsule = 50 mg, By Mouth, Daily at bedtime, as needed, 0 Refills, Maintenance, 03/29/20 13:59:00EDT Start Date: 03/29/20 Status: Ordered enoxaparin 60 mg/0.6 mL injectable solution 0.6 mL = 60 mg, Subcutaneous Injection, 2 times a day, # 30 each, 0 Refills, Maintenance, 05/18/20 10:09:00 EDT, Injection, [facility], 155, cm, 05/18/20 7:48:00 EDT, Height, 55.4, kg, 05/16/20 11:57:00 EDT, Dry Weight Start Date: 05/18/20 Status: Ordered levETIRAcetam 750 mg oral tablet TAKE ONE (1) TABLET BY MOUTH TWICE DAILY Start Date: 06/30/21 Status: Ordered levothyroxine 0.05 mg oral tablet 1 tablet = 50 mcg, By Mouth, Daily, # 90 tablet, 0 Refills, Maintenance, 11/06/19 15:24:00 EST, Tablet Start Date: 11/06/19 Status: Ordered loperamide 2 mg oral capsule 3 times a day, Refills 0, Maintenance, 03/29/20 13:59:00 EDT Start Date: 03/29/20 Status: Ordered loratadine 10 mg oral tablet 10 mg, 1, tablet, By Mouth, Daily, Refills 0, Maintenance, 03/29/20 13:59:00 EDT Start Date: 03/29/20 Status: Ordered Oxybutynin = 5 mg, By Mouth, 2 times a day, 0 Refills, Maintenance, 01/26/14 9:44:35 EDT Start Date: 01/26/14 Status: Ordered oxyCODONE 10 mg oral tablet 1 tablet = 10 mg, By Mouth, Every 6 hours, PRN as needed for pain, for 3 days, # 7 tablet, 0 Refills, Acute 07/10/21 12:50:00 EDT, 07/07/21 12:50:00 EDT, Tablet, [facility], Partial fill upon patient request if the prescription is for a... Start Date: 07/07/21 Stop Date: 07/10/21 Status: Ordered oxyCODONE 5 mg oral tablet 5 mg, Tablet, By Mouth, Every 6 hours, PRN for Pain , Severe, Routine, 07/05/21 13:50:00 EDT Start Date: 07/05/21 Stop Date: 07/08/21 Status: Discontinued ProAir HFA 90 mcg/inh inhalation aerosol with [...] 9:52:54 EDT Start Date: 01/26/14 Status: Ordered Symbicort 80mcg/4.5mcg Inhaler INHALE TWO (2) PUFFS BY MOUTH TWICE DAILY Start Date: 06/30/21 Status: Ordered tiZANidine 4 mg oral tablet 2 mg, 0.5, tablet, By Mouth, 3 times a day, Refills 0, Maintenance, 04/11/20 15:15:00 EDT Start Date: 04/11/20 Stop Date: 04/18/20 Status: Ordered Trazodone = 50 mg, By Mouth, Daily at bedtime, 0 Refills, Maintenance, 01/26/14 9:52:26 EDT Start Date: 01/26/14 Status: Ordered Problem List Condition Effective Dates [...] Reports Name Date Urine Culture (URINE CULTURE) 06/30/21 Blood Culture 06/30/21 Blood Culture #2 06/30/21 Microbiology Reports TEST:Blood Culture, Second Order STATUS:Auth (Verified) BODY SITE: SOURCE:Blood COLLECTED DATE/TIME:06/30/21 3:25 PM Blood Culture, Second Order SPECIMEN DESCRIPTION : BLOOD R AC SPECIAL REQUESTS : NONE CULTURE : NO GROWTH 5 DAYS. REPORT STATUS : FINAL 07/05/2021 TEST:Urine Culture STATUS:Auth (Verified) BODY SITE: SOURCE:URINE COLLECTED DATE/TIME:06/30/21 2:15 PM Urine Culture SPECIMEN DESCRIPTION : URINE SPECIAL REQUESTS : NONE CULTURE : >100,000 COL/ML ESCHERICHIA COLI REPORT STATUS : FINAL 07/02/2021 ORGANISM >100,000 COL/ML ESCHERICHIA COLI METHOD MIN. INHIB. CONC. (MCG/ML) AMPICILLIN SUSCEPTIBLE AMPICILLIN/SULBACTAM SUSCEPTIBLE AMOXICILLIN/CLAVULAN SUSCEPTIBLE CEFAZOLIN SUSCEPTIBLE CEFEPIME SUSCEPTIBLE CEFTRIAXONE SUSCEPTIBLE CIPROFLOXACIN SUSCEPTIBLE ERTAPENEM SUSCEPTIBLE GENTAMICIN SUSCEPTIBLE LEVOFLOXACIN SUSCEPTIBLE MEROPENEM SUSCEPTIBLE NITROFURANTOIN SUSCEPTIBLE PIPERACILLIN/TAZOBAC SUSCEPTIBLE TRIMETH/SULFAMETHOX SUSCEPTIBLE TETRACYCLINE SUSCEPTIBLE TEST:Blood Culture STATUS:Auth (Verified) BODY SITE: SOURCE:Blood COLLECTED DATE/TIME:06/30/21 2:12 PM Blood Culture SPECIMEN DESCRIPTION : BLOOD NO SITE SPECIAL REQUESTS : NONE CULTURE : NO GROWTH 5 DAYS. REPORT STATUS : FINAL 07/05/2021 Radiology Reports * Exam Date Time Procedure Performing Provider Status 06/30/21 2:09 PM Chest Portable Rosette Bear; Auth (Verified) Notes: (Chest Portable) Reason For Exam: Shortness of Breath RESULT: Chest Portable Chest Portable HX OF PRESENT ILLNESS: reports BL flank pain worsening x 4 days; Reason: Shortness of Breath; Clinical Question(s): CHF / CHF COMPARISON: 07/08/2020 FINDINGS: LINES AND TUBES: None. LUNGS AND PLEURA: Clear lungs. Normal pulmonary vascularity. Chronic blunting right costophrenic angle. No pleural effusion. No pneumothorax. HEART, MEDIASTINUM AND ALEXUS: Heart is normal in size. Normal mediastinal and hilar contour. BONES AND SOFT TISSUES: No acute abnormality. IMPRESSION: No evidence of acute abnormality. WSN: [id number] Ordering Physician: Adrianne Soares Dictated By: Jalen Rivera MD Dictated Date/Time: 06/30/21 2:13 pm Reviewed By: Jalen Rivera MD Signed By: Jalen Rivera MD Signed Date/Time: 06/30/21 2:13 pm Transcribed By: MARIA Transcribed Date/Time: 06/30/21 2:12 pm Vital Signs Most recent to oldest [Reference Range]: 1 2 3 Height 155 cm (07/07/21 11:56 AM) 155 cm (07/07/21 9:26 AM) 155 cm (07/04/21 12:00 PM) Weight 56.3 kg (06/30/21 11:33 PM) 64 kg (06/30/21 6:35 PM) 64 kg (06/30/21 1:23 PM) Oxygen Saturation [94-100 %] 100 % (07/07/21 11:56 AM) 99 % (07/07/21 9:26 AM) 100 % (07/06/21 7:00 PM) Pulse Rate [55-90 bpm] 78 bpm (07/07/21 3:19 PM) 77 bpm (07/07/21 11:56 AM) 74 bpm (07/07/21 9:26 AM) Body Mass Index [18.5-24.99] 23.43 (06/30/21 11:33 PM) 26.64 *H* (06/30/21 6:35 PM) Blood Pressure [90-138/55-84 mm Hg] 90/54mm Hg (07/07/21 11:56 AM) 91/56mm Hg (07/07/21 9:26 AM) 96/57mm Hg (07/06/21 7:00 PM) Respiratory Rate [16-30 br/min] 18 br/min (07/07/21 5:00 PM) 18 br/min (07/07/21 4:19 PM) 18 br/min (07/07/21 11:56 AM) Temperature [96.8-100.4 DegF] 98.1 DegF (07/07/21 11:56 AM) 97.6 DegF (07/07/21 9:26 AM) 98.1 DegF (07/06/21 7:00 PM) Mode of Delivery (Oxygen) Room air (07/07/21 11:56 AM) Room air (07/07/21 9:26 AM) Room air (07/06/21 7:00 PM) Blood pressure sites Arm, right (07/07/21 11:56 AM) Arm, left (07/07/21 9:26 AM) Arm, right (07/06/21 7:00 PM) Temperature Route Oral (07/07/21 11:56 AM) Oral (07/07/21 9:26 AM) Oral (07/06/21 7:00 PM) Dry Weight 56.3 kg (06/30/21 11:33 PM) 64 kg (06/30/21 6:35 PM) 64 kg (06/30/21 1:23 PM) Weight Obtained Via Bed scale (06/30/21 11:33 PM) Social History Social History Type Response Smoking Status Never (less than 100 in lifetime) entered on: 11/14/18 Sex
--- OUTSIDE RECORDS SUMMARY | 2023-07-13 20:37 | XMS_ITS | Continuity of Care Document ---
Author Name Unknown Organization [facility] ter Address [address] [place] [address]- Care Team Providers Care Plasma Center Technician Name Role Phone Doe Agarwal MD Primary Care Physician [phone] Encounter [facility] [place] Date(s): 01/01/20 - 01/31/[address] [address]- [facility] Attending Physician: Not on Staff, Attending MD Admitting Physician: Not on Staff, Admitting MD Referring Physician: Not on Staff, Referring [...] without difficulty, tolerated well 2Result Comment: lot #[id number] exp 10/03/06 Medications amitriptyline 25 mg oral [...]
--- OUTSIDE RECORDS SUMMARY | 2023-07-13 20:37 | XMS_ITS | Continuity of Care Document ---
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 ?Comments As Needed Patient Instructions ?? -Admitted due to abdominal pain, left buttock/pelvic pain since 2 months.?? No acute infection or fractures found.?? Pain secondary to musculoskeletal as well as possible due to lumbar spine degenerative changes. ?? -Please follow-up with your PCP to establish with a pain management doctor ?? -You had concerns for urinary tract infection but urine cultures were unremarkable ?? -You were found to have some bile duct and pancreatic dilation but this was not concerning on the MRI scan and gastroenterology doctors did not recommend any interventions. ? Post Discharge Care Diet: Regular Diet Activity: As tolerated Code Status: ?? Full Resuscitation Condition: Stable Prognosis: Fair Discharge ?08/21/22 10:20:00 EST Discharge Prescriptions ?ePrescribed, ??08/21/22 10:20:00 EST Misc Durable Medical Equipment ?Rolling Walker, ??See Instructions, # 1, ??each, Refills 0, Tot. Refills 0, ??Maintenance, ??To help ambulate with Gait abnormality due to Lumbar radiculopathy pain, ??08/21/22 10:11:00 EST, ??Supply, ??155, ??cm, ??08/21/22 9:26:00 EST, ??Height, ??51, ??kg, ??08/19/22 17:15:00 EST, ??[facility] Face to Face *Denotes mandatory blank ?? *I certify that this patient is under my care and that I or an allowed non- physician working with me had a face to face encounter with the patient on this date:??08/21/2022 10:21 ?? *The encounter with the patient was in whole, or in part, for the following medical condition, which is the primary diagnosis(es) for home health care:??Chronic back pain GERD - Gastro-esophageal reflux disease Myofascial pain syndrome Narcotic dependence, opiate seeking behavior PTSD (post-traumatic stress disorder) ? *Select the indications for the discipline/s that are being arranged for this patient. Nursing (select all that apply): [_] None [_] Medication management (reconciliation, teaching)?? [_] Chronic disease management?? [_] Wound care and treatment?? [_] Home safety evaluation [_] Administer SQ/IM/IV medications?? [_] Cath care?? [_] Drain care?? [_] Trach or GT care?? Other _ Occupation Therapy (select all that apply): [_] None [_] ADL Management [_] Fall prevention training [_] Energy conservation [_] Cognitive training Other _ Physical Therapy (select all that apply): [_] None [_] Functional mobility training [X] Home exercise program to strengthen [_] Increase ROM?? [_] Falls prevention training [_] Home maintenance program for chronic disease Other _ Speech Therapy (select all that apply): [_] None [_] Swallow evaluation and training [_] Speech and language training [_] Cognitive training to process, organize, and/or recall information Other _ ? *Homebound due to (select all that apply): [_] Inability to leave home without assistance/supervision [_] Inability to ambulate without assistance [_] Pain [X] Decreased strength and endurance [_] Unsteady gait [_] Severe SOB and fatigue [_] Impaired transfers [_] Inability to negotiate stairs [_] Limited weight bearing [_] Mental status change? *Physician Signature: _Pattie Harkins MD ?? *By signing this, I certify that I have personally evaluated the patient and agree with the findings and recommendations as documented above. ? F Results Discharge Labs BLOOD COUNT & DIFF WBC 3.9 k/mm3 (Low)?? 08/21/2022 05:29 RBC 3.74 m/mm3 (Low)?? 08/21/2022 05:29 Hgb 11.5 Gm/dL (Low)?? 08/21/2022 05:29 Hct 35.5 % (Low)?? 08/21/2022 05:29 MCV 94.9 femtoliters ()?? 08/21/2022 05:29 MCH 30.7 pg ()?? 08/21/2022 05:29 MCHC 32.4 g/dL (Low)?? 08/21/2022 05:29 Platelet Count 231 k/mm3 ()?? 08/21/2022 05:29 RDW-SD 46.4 femtoliters ()?? 08/21/2022 05:29 MPV 9.4 femtoliters ()?? 08/21/2022 05:29 Nucleated RBC (Automated) 0.0 #/100 WBC'S ()?? 08/21/2022 05:29 Abs. NRBC 0.0 k/mm3 ()?? 08/21/2022 05:29 Abs. Neut 2.7 k/mm3 ()?? 08/18/2022 21:32 Abs. Lymph 2.0 k/mm3 ()?? 08/18/2022 21:32 Abs. [place] 0.4 k/mm3 ()?? 08/18/2022 21:32 Abs. Eo 0.1 k/mm3 ()?? 08/18/2022 21:32 Abs. Baso 0.1 k/mm3 ()?? 08/18/2022 21:32 Neut % 52.2 % ()?? 08/18/2022 21:32 Lymph % 37.1 % ()?? 08/18/2022 21:32 [place] % 7.6 % ()?? 08/18/2022 21:32 Eos % 1.7 % ()?? 08/18/2022 21:32 Baso % 1.0 % ()?? 08/18/2022 21:32 Imm Gran 0.4 % ()?? 08/18/2022 21:32 Abs. Imm Gran 0.0 k/mm3 ()?? 08/18/2022 21:32 ?? CHEM GENERAL Sodium 137 mmol/L ()?? 08/21/2022 05:29 Potassium 3.9 mmol/L ()?? 08/21/2022 05:29 Chloride 101 mmol/L ()?? 08/21/2022 05:29 Bicarbonate Level 27 mmol/L ()?? 08/21/2022 05:29 Anion Gap 9 ()?? 08/21/2022 05:29 Glucose Level 89 mg/dL ()?? 08/21/2022 05:29 BUN 13 mg/dL ()?? 08/21/2022 05:29 Creatinine-Blood 0.5 mg/dL ()?? 08/21/2022 05:29 Estimated GFR Creatinine 102 ML/MIN/1.73 M2 ()?? 08/21/2022 05:29 Calcium 9.4 mg/dL ()?? 08/18/2022 21:32 Magnesium 1.7 mg/dL ()?? 08/21/2022 05:29 Albumin 3.6 Gm/dL ()?? 08/21/2022 05:29 Alkaline Phosphatase 65 units/L ()?? 08/21/2022 05:29 Lipase 39 units/L ()?? 08/18/2022 21:32 AST (SGOT) 17 units/L ()?? 08/21/2022 05:29 ALT (SGPT) 16 units/L ()?? 08/21/2022 05:29 Bilirubin, Total 0.6 mg/dL ()?? 08/21/2022 05:29 Bilirubin, Direct <0.2 mg/dL ()?? 08/21/2022 05:29 Bilirubin, Indirect Direct bilirubin is less than the measureable limit. Therefore, indirect mg/dL ()?? 08/21/2022 05:29 Lactate 1.2 mmol/L ()?? 08/19/2022 06:25 ?? COAG INR 1.0 ()?? 08/19/2022 12:51 Protime (PT) 10.8 seconds ()?? 08/19/2022 12:51 ?? UA/URINALYSIS Appear/Color, Urine YELLOW ()?? 08/19/2022 07:51 Specific [place], Urine 1.016 ()?? 08/19/2022 07:51 pH, Urine 5.5 ()?? 08/19/2022 07:51 Albumin, Urine TRACE (Abnormal)?? 08/19/2022 07:51 Glucose, Urine NEGATIVE ()?? 08/19/2022 07:51 Ketones, Urine NEGATIVE ()?? 08/19/2022 07:51 Bilirubin, Urine NEGATIVE ()?? 08/19/2022 07:51 Hemoglobin, Urine NEGATIVE ()?? 08/19/2022 07:51 Nitrite, Urine POSITIVE (Abnormal)?? 08/19/2022 07:51 Leukocyte, Urine 2+ (Abnormal)?? 08/19/2022 07:51 Urobilinogen NORMAL mg/dL ()?? 08/19/2022 07:51 WBC's, Urine 52 /HPF (High)?? 08/19/2022 07:51 RBC's, Urine 2 /HPF ()?? 08/19/2022 07:51 Bacteria HEAVY HPF (Abnormal)?? 08/19/2022 07:51 Squamous Epith 5 /HPF ()?? 08/19/2022 07:51 Mucus SLIGHT /LPF ()?? 08/19/2022 07:51 Hold Urine Culture Testing available 48 hours from time of collection. ()?? 08/19/2022 07:51 ? VIROLOGY COVID-19 POC Result NEGATIVE ()?? 08/18/2022 21:25 ? Imaging(s) ?MRI Abdomen W+W/O Contrast ?? 08/20/2022 04:30??by Gucci Valladares MD ?Biliary ductal dilatation with the extra hepatic common duct measuring up to 1.8 cm without definite obstructing stone or mass. Differential includes ampullary stenosis/stricture, sphincter of Oddi dysfunction, or occult ampullary neoplasm. In the setting of right upper quadrant pain orabnormal LFTs, ERCP could be considered. ?? Mild pancreatic ductal dilatation, with narrowing in the mid pancreatic body/head without definite suspicious signal intensity at this location and no change in CBD caliber at this level. Findings may be due to prior pancreatitis. Consider follow-up imaging. ?CT Abd/Pelvis W/ IV Contrast Only ?? 08/19/2022 08:13??by Dillon Gonsalez MD ?1. Worsening extrahepatic biliary and pancreatic ductal dilatation with a suggestion ofa 1 cm mass or calculus in or adjacent to the distal common duct for which GI consultation is recommended along with follow-up MRCP imaging. 2. Asymmetric bladder wall thickening has increased in the interval suggesting cystitis however neoplasm is not entirely excluded. 3. Postsurgical changes as noted. ? Microbiology(s) ?Urine Culture ?? 08/19/2022 07:51 ?CULTURE : Mixed bacterial ashely, indicative of urogenital contamination. ?? REPORT STATUS : FINAL 08/20/2022 ? 32_ minutes spent on discharge * Carmen Benavides RN: MODIFY, PERFORM Event Display: Patient Education/Instruction Authored Date: [id number] Inpatient Adult Discharge Instructions [address] [address] Name: JUJU BERNARD : 1955 Visit: 08/19/2022 11:00:00 Current Date: 08/21/2022 14:38 Account: [id number] Inpatient Adult Discharge Instructions We would like to thank you for allowing us to assist you with your healthcare needs. The following includes patient education materials and information regarding your injury/illness. Our entire staffstrives to provide an excellent experience for our patients and their families. PLEASE ENSURE YOU FOLLOW-UP PER THE INSTRUCTIONS BELOW! ?? YOUR OPINION IS IMPORTANT TO US! Please complete the survey you may receive by mail or email. Your feedback will be used to make improvements to the healthcare experiences of our patients and their families. Surveys are administered by [employer] ?? If further treatment with your primary care physician or another doctor is recommended, it is important for you to keep the appointment. Call your primary care physician or return to the Emergency Department immediately if your condition worsens, fails to improve, or new symptoms develop. If you need to find a doctor, you can call [facility] [employer] for a referral at [phone] or toll free at [phone] ([phone]) or log in to [email or web address].. ?? You can view and manage your care through the patient portal or by using a health care heather of your choosing. [employer] is a website that allows you to securely view your medical information including your hospital discharge summary, office visit summaries, medications and follow-up visits. You can also request appointments, renew medications, and request access to your medical information using a health care heather of your choosing, or just ask a question. You can enroll at [email or web address] or register during your next office visit. You have been discharged from [facility], Patient Care Unit: D6A. If you have any questions regarding these instructions after you leave, please call us and we will be happy to assist you. [facility] Your Care Team Attending Physician Pattie Harkins MD Discharging Providers Pattie Harkins MD Reason for Admission Coming from community, reports diagnosed with UTI 2 wks ago but not being treated. Reports increased abd pain and sciatica pain as well n/v/d. Your Diagnosis complicated UTI, CBD dilation Tests Performed Below is a partial list of the tests performed during your hospitalization. You may have had other tests and procedures not included in this list. Please discuss all test results with your provider. Albumin Level Alk Phos ALT AST Basic Metabolic Panel Bilirubin Fractionated Bilirubin Total + Direct BILIRUBIN,TOTAL BUN CBC CBC w/ Differential COVID-19 RNA POC Creatinine Electrolytes Glucose Level INR Lactic Acid Level LIPASE Lytes Magnesium Level Urinalysis w/hold for Urine Culture CT Abd/Pelvis W/ IV Contrast Only MRI Abdomen W+W/O Contrast Primary Care Provider Not on Staff, PCP Advance Directive Health Care Proxy on File Yes - Health Care Proxy No qualifying data available. Discharge Vitals Temperature: 98.4 DegF Height: 155 cm Pulse Rate: 66 bpm Weight: 51 kg Respiratory Rate: 18 br/min Body Mass Index: 21.23 kg/m2 Systolic Blood Pressure: 98 mm Hg Body surface area: 1.48 Diastolic Blood Pressure:??22 mm Hg??Low ?? Oxygen Saturation: 99 % ?? Studies Pending All tests and labs ordered during this hospital stay have been completed unless listed below. Please discuss all pending results with your provider listed above in these instructions. ?? Add On Lab Order Blood Culture Blood Culture #2 COVID-19 (2019 Novel Coronavirus) PCR What to do next Instructions From Your Doctor ?? -Admitted due to abdominal pain, left buttock/pelvic pain since 2 months.?? No acute infection or fractures found.?? Pain secondary to musculoskeletal as well as possible due to lumbar spine degenerative changes. ?? -Please follow-up with your PCP to establish with a pain management doctor ?? -You had concerns for urinary tract infection but urine cultures were unremarkable ?? -You were found to have some bile duct and pancreatic dilation but this was not concerning on the MRI scan and gastroenterology doctors did not recommend any interventions. ? Discharge Orders Diet:??Regular Diet Activity:??As tolerated Code Status:?? Full Resuscitation Condition:??Stable Prognosis:??Fair You Need to Schedule the Following Appointments Follow Up with??As Needed When?? Discharge Medications JUJU BERNARD :1955 Visit Date:08/19/2022 Medications: Please continue your medications until treatment is completed or stopped by your provider. Medications not listed below should be discontinued. Discuss any questions related to medications with your provider. What How Much When Instructions Next Dose New Durable Medical Equipment (Rolling Walker) See instructions To help ambulate with Gait abnormality due to Lumbar radiculopathy pain ?? Printed Prescription Changed Oxycodone (oxyCODONE 5 mg oral tablet) 1 tab(s) Oral Every 6 hours as needed for Pain , Moderate Duration: 2 Days Use sparingly ?? Pickup at [facility] 3 Last admin 08/21 9:28AM Unchanged Albuterol (ProAir HFA 90 mcg/ inh inhalation aerosol with adapter) 1 puff(s) Inhalation Every 6 hours as needed for for wheezing non admin at [facility] Unchanged amiTRIPTYLINE (amitriptyline 25 mg oral tablet) 1 tab(s) Oral Daily at Bedtime 08/21 9PM Unchanged apixaban (Eliquis 5 mg oral tablet) TAKE ONE (1) TABLET BY MOUTH TWICE DAILY ?? 08/21 9PM Unchanged Budesonide-Formoterol (Symbicort 80mcg/ 4.5mcg Inhaler) 2 puff(s) Inhalation Twice a day 08/21?? 9PM Unchanged Diclofenac Topical (Voltaren 1% topical gel) 1 heather Topically 4 times a day as needed for for pain resume as needed Unchanged Dicyclomine (dicyclomine 20 mg oral tablet) 1 tab(s) Oral Twice a day 08/21 9PM Unchanged Digoxin (digoxin 0.125 mg oral tablet) 1 tab(s) Oral Daily 08/22 9AM Unchanged Duloxetine (duloxetine 60 mg oral enteric coated capsule) 1 capsule Oral Daily 08/22 9AM Unchanged Durable Medical Equipment (walker with wheels) See instructions Walker with wheels to improve balance, fall prevention ?? Unchanged levETIRAcetam (levETIRAcetam 100 mg/ mL oral solution) 7.5 Milliliter Oral Twice a day Duration: 30 Days 08/21 9PM Unchanged Levothyroxine (levothyroxine 0.05 mg oral tablet) 1 tab(s) Oral Daily 08/22 30min-1hr??before first meal Unchanged Loperamide (loperamide 2 mg oral capsule) 1 capsule Oral Every 4 hours as needed for for loose stool Unchanged Loratadine (loratadine 10 mg oral tablet) 1 tab(s) Oral Daily 08/22 9AM Unchanged Multivitamin With Minerals (multivitamin with minerals Calcium and Magnesium oral tablet) 1 tab(s) Oral Daily Duration: 30 Days 08/22 9AM Unchanged Oxybutynin (oxybutynin 5 mg oral tablet) 1 tab(s) Oral Twice a day 08/21 9PM Unchanged Pantoprazole (Protonix 40 mg oral delayed release tablet) 40 Milligram Oral Daily 08/22 9AM Unchanged Ropinirole (rOPINIRole 1 mg oral tablet) 1 tab(s) Oral Daily at Bedtime 08/21 9PM Unchanged Simvastatin (simvastatin 40 mg oral tablet) 1 tab(s) Oral Daily at Bedtime 08/21 9PM Unchanged Trazodone (traZODone 50 mg oral tablet) 1 tab(s) Oral Daily at Bedtime 08/21 9PM Pharmacy Information [facility] 3: [address], [place] [id number] [phone] ?? What How Much When Comments Stop Taking Magnesium Oxide (magnesium oxide 400 mg oral tablet) 1 tab(s) Oral Daily Duration: 10 Days Stop Taking Potassium Chloride (Potassium Chloride (Dap-Gdjs-Sfs M10) 10 mEq oral tablet, extended release) Test Results Below is a partial list of the most recent Laboratory test results done prior to this discharge. You may have had other tests and procedures not included in this list. Please discuss all test resultswith your provider. Albumin Level (08/21/2022) ???Albumin - 3.6 Gm/dL Alk Phos (08/21/2022) ???Alkaline Phosphatase - 65 units/L ALT (08/21/2022) ???ALT (SGPT) - 16 units/L AST (08/21/2022) ???AST (SGOT) - 17 units/L Basic Metabolic Panel (08/18/2022) ???Sodium - 141 mmol/L???Potassium - 4.1 mmol/L???Chloride - 107 mmol/L???Bicarbonate Level - 21 mmol/L???Anion Gap - 13???Glucose Level - 87 mg/dL???BUN - 15 mg/dL???Creatinine-Blood - 0.5 mg/dL???Estimated GFR Creatinine - 105 ML/MIN/1.73 M2???Calcium - 9.4 mg/dL Bilirubin Fractionated (08/19/2022) ? ?Bilirubin, Direct - <0.2 mg/dL? ?Bilirubin, Indirect - Direct bilirubin is less than the measureable limit. Therefore, indirect Bilirubin Total + Direct (08/21/2022) ? ?Bilirubin, Total - 0.6 mg/dL? ?Bilirubin, Direct - <0.2 mg/dL? ?Bilirubin, Indirect - Direct bilirubin is less than the measureable limit. Therefore, indirect BILIRUBIN,TOTAL (08/18/2022) ???Bilirubin, Total - 0.6 mg/dL BUN (08/21/2022) ???BUN - 13 mg/dL CBC (08/21/2022) ???WBC - 3.9 k/mm3???RBC - 3.74 m/mm3???Hgb - 11.5 Gm/dL???Hct - 35.5 %???MCV - 94.9 femtoliters???MCH - 30.7 pg???MCHC - 32.4 g/dL???Platelet Count - 231 k/mm3???RDW-SD - 46.4 femtoliters???MPV - 9.4 femtoliters???Nucleated RBC (Automated) - 0.0 #/100 WBC'S???Abs. NRBC - 0.0 k/mm3 CBC w/ Differential (08/18/2022) ???WBC - 5.3 k/mm3???RBC - 3.97 m/mm3???Hgb - 12.2 Gm/dL???Hct - 39.5 %???MCV - 99.5 femtoliters???MCH - 30.7 pg???MCHC - 30.9 g/dL???Platelet Count - 242 k/mm3???RDW-SD - 49.7 femtoliters???MPV - 9.3 femtoliters???Nucleated RBC (Automated) - 0.0 #/100 WBC'S???Abs. NRBC - 0.0 k/mm3???Abs. Neut - 2.7 k/mm3???Abs. Lymph - 2.0 k/mm3???Abs. [place] - 0.4 k/mm3???Abs. Eo - 0.1 k/mm3???Abs. Baso - 0.1 k/mm3???Neut % - 52.2 %???Lymph % - 37.1 %???[place] % - 7.6 %???Eos % - 1.7 %???Baso % - 1.0 %???Imm Gran- 0.4 %???Abs. Imm Gran - 0.0 k/mm3 COVID-19 RNA POC (08/18/2022) ???COVID-19 POC Result - NEGATIVE Creatinine (08/21/2022) ???Creatinine-Blood - 0.5 mg/dL???Estimated GFR Creatinine - 102 ML/MIN/1.73 M2 Electrolytes (08/21/2022) ???Sodium - 137 mmol/L???Potassium - 3.9 mmol/L???Chloride - 101 mmol/L???Bicarbonate Level - 27 mmol/L???Anion Gap - 9 Glucose Level (08/21/2022) ???Glucose Level - 89 mg/dL INR (08/19/2022) ???INR - 1.0???Protime (PT) - 10.8 seconds Lactic Acid Level (08/19/2022) ???Lactate - 1.2 mmol/L LIPASE (08/18/2022) ???Lipase - 39 units/L Lytes (08/20/2022) ???Sodium - 140 mmol/L???Potassium - 3.7 mmol/L???Chloride - 106 mmol/L???Bicarbonate Level - 27 mmol/L???Anion Gap - 7 Magnesium Level (08/21/2022) ???Magnesium - 1.7 mg/dL Urinalysis w/hold for Urine Culture (08/19/2022) ???Appear/Color, Urine - YELLOW???Specific [place], Urine - 1.016???pH, Urine - 5.5???Albumin, Urine - TRACE???Glucose, Urine - NEGATIVE???Ketones, Urine - NEGATIVE???Bilirubin, Urine - NEGATIVE???Hemoglobin, Urine - NEGATIVE???Nitrite, Urine - POSITIVE???Leukocyte, Urine - 2+???Urobilinogen - NORMAL???WBC's, Urine - 52 /HPF???RBC's, Urine - 2 /HPF???Bacteria - HEAVY???Squamous Epith - 5 /HPF???Mucus - SLIGHT???Hold Urine Culture - Testing available 48 hours from time of collection. Immunizations This Visit Given Vaccine Dateinfluenza virus vaccine, inactivated 08/20/2022 Allergies (NKA means No Known Allergies) gabapentin??(States breathing difficulty and itchiness from med) Depakote Glutens??(Allergy to seafood) Levaquin??(n-v, rash) Rice??(severe vomiting) Seafood amoxicillin??(n-v, rash, Amoxycillin allergy) clindamycin??(n-v, rash) codeine??(n-v) doxycycline??(n-v, rash) erythromycin??(n-v, rash) levofloxacin??(n-v) oxacillin??(n-v, rash) penicillin??(anaphylaxis, rash) rifampin??(n-v, rash) sulfa drugs??(n-v, rash) tetracycline??(n-v, rash) vancomycin??(n-v, rash) Problems Active Problems??(20) Abdominal pain?? AF - Paroxysmal atrial fibrillation?? Chronic back pain?? Conversion disorder?? DIABETES MELLITUS?? Diabetic gastroparesis?? GERD - Gastro-esophageal reflux disease?? hgih fall risk?? History of DVT (deep vein thrombosis)?? Major depression?? Myofascial pain syndrome?? Narcotic dependence, opiate seeking behavior?? NO h/o CVA by MRI?? Parastomal hernia?? pneumonia?? Pseudoseizures?? PTSD (post-traumatic stress disorder)?? Rapid gastric emptying?? SVT - Supraventricular tachycardia?? Unexplained weight loss?? Education Materials Below is the list of Educational Leaflet Providered with your Discharge Instructions. Complementary Care for Pain?? Valuables and Belongings I fully understand and agree that [facility] accepts no responsibility for all my personal property including clothing, toilet articles, radios, jewelry, dentures, hearing aids, rings, money, or any other property that is in my possession or is brought to me after admission. I understand certain valuables may be placed in a hospital safe for a short period of time. I understand that the hospital is not liable for loss or damage due to accident, fire, or other natural occurrence while said property is in the safe. I accept full responsibility for any personal property that I keep with me, and will not hold the hospital responsible in case of loss or disappearance. I acknowledge that i have been encouraged to send valuables and belongings home. ?? Review of Valuable and Belonging List: With patient Date for Pt to Sign Valuables/Belongings: 08/19/22 17:18:00 ?? Other Discharge Information ? Pulmonary Rehab Status?? Pulmonary Rehab Discharge Status?? Respiratory Rate: 18 br/min ? Common Emergency Awareness Tips IS IT A STROKE? Act FAST and Check for these signs: FACE Does the face look uneven? ARM Does one arm drift down? SPEECH Does their speech sound strange? TIME Call at any sign of stroke ?? Heart Attack Signs Chest discomfort: Most heart attacks involve discomfort in the center of the chest and lasts more than a few minutes, or goes away and comes back. It can feel like uncomfortable pressure, squeezing, fullness or pain. Discomfort in upper body: Symptoms can include pain or discomfort in one or both arms, back, neck, jaw or stomach. Shortness of breath: With or without discomfort. Other signs: Breaking out in a cold sweat, nausea, or lightheaded. Remember, MINUTES DO MATTER. If you experience any of these heart attack warning signs, call to get immediate medical attention! ?? Smoking can increase your chances of developing chronic health problems and can cause harmful effects to other family members in your house. If you smoke, you are strongly encouraged to quit. Please call [facility] [employer] at [phone] or [phone] ([phone]) or log in to [email or web address] for referrals to smoking cessation programs. ?? The National Suicide Prevention Hotline is available 16/04 if you or someone you know needs to find a reason to keep living. By calling 1-042-555-FUNGO STUDIOS (3032) you'll be connected to a skilled, trained counselor at a crisis center in your area. INPATIENT DISCHARGE INSTRUCTIONS SIGNATURE PAGE JUJU BERNARD Location:[facility] Registration Date and Time:08/19/2022 11:00 EST Primary Care Physician: Not on Staff, PCP I JOANAJUJU, have received the above patient education materials/instructions and have verbalized understanding. If ambulance or transport services are being used I further acknowledge being given a choice of service. ?? If you need to contact me, please call me at this number: . Patient/Ornamental Metalwork Designer Name: Patient/Ornamental Metalwork Designer Signature: Relationship to Patient: Witness Name/Signature: Date: * Carmen Benavides RN: PERFORM Event Display: Patient Education Leaflets Authored Date: [id number] Oxycodone Oral Tablet ?? [id number] Oxycodone Oral Tablet Brands: Roxicodone Uses For pain. ?? Instructions This medicine may be taken with or without food. Swallow with a full glass (8 oz) of water unless your doctor gives you different instructions. Store at room temperature away from heat, light, and moisture. Do not keep in the bathroom. Please ask your doctor, nurse, or pharmacist how to discard unused medicines safely. To reduce constipation, eat high fiber foods, drink plenty of water and exercise. Avoid grapefruit juice while on this medicine. Drug interactions can change how medicines work or increase risk for side effects. Tell your healthcare providers about all medicines taken. Include prescription and [id number] medicines, vitamins, and herbal medicines. Speak with your doctor or pharmacist before starting or stopping any medicine. Tell your doctor if symptoms do not get better or if they get worse. ?? Cautions This medicine has an opioid. Opioids help many people but may cause addiction, especially if used for a long time. The addiction risk is higher if you have a substance use disorder (overuse of or addiction to drugs or alcohol). Ask your doctor about the benefits and risks. Ask your doctor or pharmacist if you should have naloxone on hand to treat opioid overdose. Teach your family or household members about the signs of an opioid overdose and how to treat it. If you stop this medicine suddenly, after using it regularly for a long time, you may have withdrawal symptoms. Your doctor may ask you to slowly reduce your dose before stopping it. Tell your doctorright away if you notice any symptoms of withdrawal. Withdrawal symptoms can include unusual sweating, watering eyes, runny nose, chills, stomach pain, diarrhea, yawning, muscle aches, irritability, restlessness, anxiety, trouble sleeping, or thoughts of suicide. Tell your doctor and pharmacist if you ever had an allergic reaction to a medicine. Do not use the medication any more than instructed. This medicine may cause dizziness or fainting, especially after exercising or in hot weather. Be very careful when standing or sitting up quickly. If possible, avoid using with marijuana or other medicines that can cause dizziness or drowsiness. These include allergy/cold products, muscle relaxers, sleep aids, and pain relievers. Your ability to stay alert or to react quickly may be impaired by this medicine. Do not drive or operate machinery until you know how this medicine will affect you. Do not drink beverages with alcohol while on this medicine. This medicine passes into breast milk. Ask your doctor before . This medicine can hurt a new baby in the womb. If you become while on this medicine, tell your doctor immediately. Your doctor may switch you to a different medicine. This medicine should be used with caution in patients with breathing difficulties. Call your doctor right away if you notice slow or shallow breathing. Do not share this medicine with anyone who has not been prescribed this medicine. Some patients have serious side effects from this medicine. Ask your pharmacist to show you the information from the Food and Drug Administration (FDA) and discuss it with you. ?? Side Effects The following is a list of some common side effects from this medicine. Please speak with your doctor about what you should do if you experience these or other side effects. ??? decreased appetite ??? constipation ??? dizziness or drowsiness ??? lightheadedness ??? nausea and vomiting If you have any of the following side effects, you may be getting too much medicine. Please contactyour doctor to let them know about these side effects. ??? confusion ??? fainting ??? unusual or unexplained tiredness or weakness ??? difficulty or discomfort urinating Call your doctor or get medical help right away if you notice any of these more serious side effects: ??? agitated feeling or trouble sleeping ??? decreased awareness or responsiveness ??? breathing interruption during sleep ??? shallow, irregular breathing ??? hallucinations (unusual thoughts, seeing or hearing things that are not real) ??? seizures ??? severe stomach or bowel pain ??? weight loss A few people may have an allergic reaction to this medicine. Symptoms can include difficulty breathing, skin rash, itching, swelling, or severe dizziness. If you notice any of these symptoms, seek medical help quickly. ?? Extra Please speak with your doctor, nurse, or pharmacist if you have any questions about this medicine. ?? [email or web address] IMPORTANT NOTE: This document tells you briefly how to take your medicine, but it does not tell youall there is to know about it. Your doctor or pharmacist may give you other documents about your medicine. Please talk to them if you have any questions. Always follow their advice. There is a more complete description of this medicine available in [place]. Scan this code on your smartphone or tablet or use the web address below. You can also ask your pharmacist for a printout. If you have any questions, please ask your pharmacist. The display and use of this drug information is subject to Terms of Use. Copyright(c) 2021 [employer]. ?? [employer]. All rights reserved. This information is not intended as a substitute for professional medical care. Always follow your healthcare professional's instructions. ?? * Carmen Benavides RN: PERFORM Event Display: Patient Education Leaflets Authored Date: [id number] Urinary Tract Infections in Women ?? [id number] Urinary Tract Infections in Women Urinary tract infections (UTIs) are most often caused by bacteria. These bacteria enter the urinarytract. The bacteria may come from inside the body. Or they may travel from the skin outside the rectum or vagina into the urethra. Female anatomy makes it easy for bacteria from the bowel to enter a woman???s urinary tract. This is the most common source of UTI. This means women develop UTIs more often than men. Pain in or around the urinary tract is a common UTI symptom. Most UTIs are treated with antibiotics. These kill the bacteria. The length of time you need to take them depends on the type of infection. It may be as short as 3 days. If you have repeated UTIs, you may need a low-dose antibiotic for several months. Take antibiotics exactly as directed. Don???t stop taking them until all of the medicine is gone. If you stop taking the antibiotic too soon, the infection may not go away. You may also develop a resistance to the antibiotic. This can make it muchharder to treat in the future. Home care The lifestyle changes below will help get rid of your UTI. They may also help prevent future UTIs: ??? Drink plenty of fluids. This includes water, juice, or other caffeine-free drinks. Fluids help flush bacteria out of your body. ??? Empty your bladder. Always empty your bladder when you feel the urge to pee. And always pee before going to sleep. Urine that stays in your bladder can lead to infection. Try to pee before and after sex as well. ??? Practice good personal hygiene. Wipe yourself from front to back after using the toilet. This helps keep bacteria from getting into the urethra. ???Use condoms during sex. These help prevent UTIs caused by sexually transmitted bacteria. Also don'tuse spermicides during sex. These can increase the risk for UTIs. Choose other forms of control instead. For women who tend to get UTIs after sex, a low-dose of a preventive antibiotic may be used. Be sure to discuss this option with your healthcare provider. ??? Try holistic supplements suchas cranberry tablets and D-mannose. These may help prevent UTIs. ??? Try topical vaginal estrogen. You can use this to help prevent UTIs if you have gone through menopause. ?? Follow-up care Follow up with your healthcare provider as directed. He or she may test to make sure the infection has cleared. If needed, more treatment may be started. ?? When to seek medical advice Call your healthcare provider right away if any of these occur: ??? Frequent urination ??? Pain or burning when passing urine ??? Fever of 100.4??F (38??C) or higher , or as directed by your healthcare provider ??? Urine looks dark, cloudy, or reddish in color. This may mean that blood is in the urine. ??? Urine smells bad ??? Feeling pain even when not urinating ??? Tiredness ??? Pain in the belly (abdomen) area below the bellybutton, or in the back or side, below the ribs ??? Nausea or vomiting ??? Have a strong urge to urinate, but only a small amount of urine is passed ??? Uncomfortable pressure above the pubic bone ??? Feeling confused or very tired (in older adults) ?? Last Reviewed Date: 2020 ?? 9402-7315 [employer]. All rights reserved. This information is not intended as a substitute for professional medical care. Always follow your healthcare professional's instructions. ?? * Carmen Benavides RN: PERFORM Event Display: Patient Education Leaflets Authored Date: [id number] Kidney Infection (Adult Female) ?? [id number] Kidney Infection (Adult Female) An infection in 1 or both kidneys is called pyelonephritis. It usually happens when bacteria get into the kidney. Rarely it is caused when other germs, such as viruses, fungi, or other disease-causing organisms get into the kidney. The bacteria or other disease-causing organisms can enter the kidneys from the bladder or blood traveling from other parts of the body. A kidney infection can become serious. It can cause severe illness, scarring of the kidneys, or kidney failure if not treated correctly. Common causes for this problem include: ??? Not keeping the genital area clean and dry, which promotes the growth of bacteria ??? Wiping back to front. This drags bacteria from the rectum toward the urinary opening (urethra). ??? Wearing tight pants or underwear. This lets moisture build up in the genital area, which helps bacteria grow.??? Holding pee (urine) in for long periods of time ??? Dehydration ??? Urinary tract infections ??? Blockages of pee draining from the kidney, such as a kidney stone Kidney infections can cause symptoms similar to a bladder infection. Symptoms include: ??? Pain or burning feeling when peeing ??? Having to pee more often than normal ??? Blood in the pee (pink or red) ??? Belly (abdominal) pain or discomfort, usually in the lower belly ??? Pain in the side or back ??? Pain above the pubic bone ??? Fever or chills ??? Vomiting ??? Loss of appetite Treatment is oral antibiotics. More severe cases are treated with IM (intramuscular) or IV (intravenous) antibiotics. These are started right away and may be changed once urine culture results show the infecting organisms. Treatment helps prevent a more serious kidney infection. Symptoms of kidney i nfections can vary based on your age. Medicines Medicines can help in the treatment of a bladder infection: ??? Take antibiotics exactly as prescribed and until they are used up, even if you feel better. It's important to finish them to make sure the infection is gone. ??? Unless another medicine was prescribed, you can use oopa-bqh-uufkavv medicines for pain, fever, or discomfort. If you have chronic liver of kidney disease, talk with your healthcare provider before using these medicines. Also talk with your provider if you've ever had a stomach ulcer or digestive bleeding. Or if you are taking blood thinners. ?? Home care Here are some general care guidelines: ??? Stay home from work or school. Rest in bed until your fever breaks and you are feeling better, or as advised by your healthcare provider. ??? Drink lots of fluid unless you must restrict fluids for other medical reasons. This will force the medicine into your urinary system and flush the bacteria out of your body. Ask your provider how much you should drink. ??? Don't have sex until you have finished all of your medicine and your symptoms are gone. ??? Don't have??caffeine, alcohol, or spicy foods. These foods may irritate the kidneys and bladder. ??? Don't take bubble baths. Sensitivity to the chemicals in bubble baths can irritate the urethra. ??? Make sure you wipe from front to backafter using the toilet. ??? Wear loose clothes and cotton underwear. Prevention These self-care steps can help prevent future infections: ??? Drink plenty of fluids to prevent dehydration and flush out the bladder. Do this unless you must restrict fluids for other health reasons, or your healthcare provider told you not to. ??? Make sure you wipe from front to back after usingthe toilet. ??? Pee more often. Don't try to hold pee in for a long time. ??? Don't wear tight-fitting pants and underwear. ??? Improve your diet to prevent constipation. Eat more fruits, vegetables,and fiber. Eat less junk and fatty foods. Constipation can make a urinary tract infection more likely. Talk with your healthcare provider if you have trouble with bowel movements. ??? Pee right aftersex to flush out the bladder. ?? Follow-up care Follow up with your healthcare provider, or as advised. Additional testing may be needed to make sure the infection has cleared. Close follow-up and further testing is very important to find the cause and to prevent future infections. If a urine culture was done, you will be contacted if your treatment needs to be changed. If directed, you may call to find out the results. If you had an X-ray, CT scan, or other diagnostic test, you will be told of any new findings that may affect your care. Call 911 Call 911 if any of the following occur: ??? Trouble breathing ??? Fainting or loss of consciousness??? Fast or very slow heart rate ??? Weakness, dizziness, or fainting ??? Trouble waking up or confusion ?? When to get medical care Call your healthcare provider right away if any of these occur: ??? Fever 100.4??F (38??C) or higher, or as advised by your provider ??? Not feeling better or symptoms get worse 1 to 2 days after starting antibiotics ??? Any symptom that lasts after 3 days of treatment ??? More pain in the stomach,back, side, or groin area ??? Repeated vomiting ??? Not able to take prescribed medicine due to nausea or another reason ??? Bloody, dark-colored, or bad- smelling pee ??? Trouble peeing or peeing less than normal ??? No pee for 8 hours, no tears when crying, confusion, sunken eyes, or dry mouth ?? Last Reviewed Date: 2022 ?? [id number] [employer]. All rights reserved. This information is not intended as a substitute for professional medical care. Always follow your healthcare professional's instructions. ?? CT Abdomen and Pelvis W contrast IV * [facility] , CIS S: TRANSCRIBE Dillon Gonsalez MD H: VERIFY Luis PAUL, Ethel: SIGN Event Display: Result: Authored Date: [id number] CT Abd/Pelvis W/ IV Contrast Only Hx of Present Illness: Pt crying, reporting that she has a uti, complaining of burning with urination and odorous urine for 2 weeks. Pt now reporting blood in urine. Pt now complaining of post traumapain in her right pelvic region. History of colon cancer with colostomy, neurogenic bladder requiring catheterization. TECHNIQUE: Spiral CT through the abdomen and pelvis with IV contrast formatted in 3 planes. 75 cc of Omnipaque 300 was administered intravenously. This study was performed without oral contrast. Weight-based protocol using automatic tube modulation was used to optimize exposure parameters. CTDIvol Body: 10.80 mGy, DLP Body: 567 mGy*cm. COMPARISON: 12/13/2021. FINDINGS: Visualized Chest: Right-sided volume loss and elevated hemidiaphragm unchanged. Liver: Unremarkable. Gallbladder: Postcholecystectomy changes. Bile ducts: Worsening extrahepatic biliary ductal dilatation currently measuring 1.7 cm in maximum dimensions, previously 1.5 cm with a suggestion of a 1.2 cm soft tissue focus within or obstructing the distal common duct axial image 59 series 301, coronal image 45 series 302. Spleen: Normal. Pancreas: Increasing pancreatic duct distal dilatation of the 5 mm in the head of pancreas on today's examination. Adrenal glands: Normal. Kidneys and ureters: Unchanged left interpolar 1.3 cm indeterminate hypodensity (series 301:51). Nohydronephrosis or stones. Small hypodensities that are too small to characterize are noted, requiring no dedicated follow up. Bladder: Trabeculated, asymmetrically thickened anteriorly and superiorly. Reproductive organs: Status post hysterectomy. Stomach, small bowel, and large bowel: Postsurgical changes, rectal stump remains intact. Colostomyexiting the left lower quadrant anterior abdominal wall. Appendix: Not seen. Peritoneum and retroperitoneum: No pneumoperitoneum. Right hemiabdomen omental/mesenteric fat stranding is less prominent than prior study. No definite source. Lymph nodes: No enlarged lymph nodes. Blood vessels: Mild vascular calcifications but no aneurysm. No evidence of venous thrombosis. An infrarenal IVC filter is noted. Abdominal and pelvic wall: Postoperative changes, left lower quadrant end colostomy. Findings suggestive of previous anterior abdominal wall mesh hernia repairs. Bones: No acute abnormality. Mild degenerative changes of the visualized spine. IMPRESSION: 1. Worsening extrahepatic biliary and pancreatic ductal dilatation with a suggestion of a 1 cm massor calculus in or adjacent to the distal common duct for which GI consultation is recommended alongwith follow-up MRCP imaging. 2. Asymmetric bladder wall thickening has increased in the interval suggesting cystitis however neoplasm is not entirely excluded. 3. Postsurgical changes as noted. I have personally reviewed the images and I agree with this report. WSN: [id number] Ordering Physician: Amari Collins Dictated By: Ethel Smith MD Dictated Date/Time: 08/19/22 9:36 am Reviewed By: Dillon Gonsalez MD Signed By: Dillon Gonsalez MD Signed Date/Time: 08/19/22 9:41 am Transcribed By: MARIA Transcribed Date/Time: 08/19/22 8:40 am MR Abdomen WO and W contrast IV * [facility] , CIS S: NICOLE Valladares MD, Gucci Dean: VERIFY Event Display: Result: Authored Date: [id number] MRI Abdomen W+W/O Contrast CLINICAL INDICATION: Reason: Other:; CBD and PD dilation; Clinical Question(s): Tumor Primary; Order Comment: Please see Reference Text for complete list of contraindications Tumor Primary TECHNIQUE: Multiplanar, multisequence pre and post contrast MRI evaluation of the abdomen was performed. 10 cc of Clariscan was administered intravenously. 3- D rotating maximum intensity projection MRCP images of the biliary tree were generated on the same workstation with concurrent physician supervision. COMPARISON: CT the abdomen and pelvis dated August 19, 2022. FINDINGS: LOWER THORAX: No pleural or pericardial effusion. LIVER: Normal contour and size. Normal parenchymal enhancement. No suspicious lesion. GALLBLADDER: Surgically absent. BILE DUCTS: Minimal intrahepatic ductal dilatation. Moderate extrahepatic dilatation of the common bile duct measuring up to 1.8 cm with distal tapering. CBD appears to terminate just above the levelof the ampulla with a somewhat abrupt margin but no definite intraluminal stone or filling defect. SPLEEN: Normal. PANCREAS: Diffuse mild pancreatic ductal dilatation with short segment of narrowing in the pancreatic body/head with distal prominence and tapering to the ampulla. No definite suspicious lesion identified. ADRENAL GLANDS: No nodules. KIDNEYS: No hydronephrosis. Kidneys enhance symmetrically. No suspicious mass. Multiple simple small renal cysts. Additional intrinsically T1 hyperintense renal foci are compatible with hemorrhagic/proteinaceous renal cysts. STOMACH/UPPER GI TRACT: Unremarkable stomach and normal caliber small bowel loops. Diffuse mild wall thickening throughout the colon with a left lower quadrant end colostomy noted. PERITONEUM AND RETROPERITONEUM: No loculated fluid collection or peritoneal mass. LYMPH NODES: No lymphadenopathy. VESSELS: Abdominal aorta is nonaneurysmal. Hepatic, portal and splenic veins patent. Circumaortic left renal vein. IVC filter noted in place. ABDOMINAL WALL: Unremarkable. BONES: T2 hyperintense focus within L2 likely represents a hemangioma. PELVIS: Partially imaged irregular distended bladder in the upper pelvis. IMPRESSION: Biliary ductal dilatation with the extra hepatic common duct measuring up to 1.8 cm without definite obstructing stone or mass. Differential includes ampullary stenosis/stricture, sphincter of Oddi dysfunction, or occult ampullary neoplasm. In the setting of right upper quadrant pain or abnormal LFTs, ERCP could be considered. Mild pancreatic ductal dilatation, with narrowing in the mid pancreatic body/head without definite suspicious signal intensity at this location and no change in CBD caliber at this level. Findings may be due to prior pancreatitis. Consider follow-up imaging. Mild colonic wall thickening throughout its length suggesting mild monae colitis WSN: [id number] Ordering Physician: Nat Cuevas Dictated By: Gucci Valladares MD Dictated Date/Time: 08/20/22 4:23 pm Reviewed By: Gucci Valladares MD Signed By: Gucci Valladares MD Signed Date/Time: 08/20/22 4:23 pm Transcribed By: MARIA Transcribed Date/Time: 08/20/22 4:09 pm Patient Care team information Care Team Personnel Name: Genna Segovia RN Position: [facility] RN Member Role: Primary Care Nurse Name: Honorio Boudreaux RN Position: [facility] RN Member Role: Primary Care Nurse Name: Kat Wagner RN Position: [facility] OB RN Member Role: Primary Care Nurse Name: Jay Reich RN Position: [facility] RN Member Role: Primary Care Nurse Name: Mónica Montanez RN Position: [facility] RN Member Role: Primary Care Nurse Name: Yamilet Jack RN Position: [facility] RN Member Role: Primary Care Nurse Name: Willem Quiroga RN Position: [facility] RN Member Role: Primary Care Nurse Name: Jenni Crabtree RN Position: [facility] RN Member Role: Primary Care Nurse Name: Socorro Gilbert RN Position: [facility] RN Member Role: Primary Care Nurse Name: Lisa Deutsch RN Position: [facility] SN Landscape Account Manager Member Role: Primary Care Nurse Name: Kari Grant RN Position: [facility] RN Member Role: Primary Care Nurse Name: Ericka Urena RN Position: [facility] RN Member Role: Primary Care Nurse Name: Jalen Heath RN Position: [facility] RN Member Role: Primary Care Nurse Name: Georgie Kruse RN Position: [facility] RN Member Role: Primary Care Nurse Name: Renu Azar RN Position: [facility] Onco RN Member Role: Primary Care Nurse Name: Noah Mccann RN Position: [facility] RN Member Role: Primary Care Nurse Name: Jamila Neil Position: [facility] RN Member Role: Primary Care Nurse Name: Carmen Benavides RN Position: [facility] RN Member Role: Primary Care Nurse Name: Aide Lockett RN Position: [facility] RN Member Role: Primary Care Nurse Name: Balbina Lafleur RN Position: [facility] RN Member Role: Primary Care Nurse Name: Alexa Gomez RN Position: [facility] RN Member Role: Primary Care Nurse Name: Genesis Stewart RN Position: [facility] RN Member Role: Primary Care Nurse Name: Maribel Dc RN Position: [facility] RN Member Role: Primary Care Nurse Name: Not on Staff, PCP Position: [facility] Physician (General Medicine) Member Role: PCP Name: Catia Bloom RN Position: [facility] RN Member Role: Primary Care Nurse Name: Sara Guevara RN Position: [facility] RN Member Role: Primary Care Nurse Name: Georgie Shirley RN Position: [facility] RN Member Role: Primary Care Nurse Name: Saniya Raines RN Position: [facility] RN Member Role: Primary Care Nurse Name: Jenifer Conway RN Position: [facility] RN Member Role: Primary Care Nurse Name: Tori Sanchez RN Position: [facility] RN Member Role: Primary Care Nurse Name: So Klein RN Position: [facility] RN Member Role: Primary Care Nurse Name: Syl Taylor NP Position: [facility] Associate Professional Member Role: Primary Care Nurse Address: Address: [address] [place] [address] [facility] [address] Name: Johana Quintana RN Position: [facility] RN Member Role: Primary Care Nurse Name: Juliana Daniels RN Position: [facility] RN Member Role: Primary Care Nurse Name: Laxmi Sanchez RN Position: [facility] [facility] Member Role: Primary Care Nurse Name: Nadya Perales RN Position: [facility] RN Member Role: Primary Care Nurse Name: Kaye Murrieta RN Position: [facility] RN Member Role: Primary Care Nurse Name: RupeshRenny Frias Attending Position: [facility] ED Medicine MD Name: Leeann Mancini RN Position: [facility] ED RN W/OE and Tasks Member Role: Patient Care Provider Name: Maegan Saenz Position: [facility] ED TA [facility] Member Role: Client Representative Care Team Related Persons Name: RYAN FELIZ Address: [facility] Name: MICHAEL SPRING Address: home [address] [address] Name: TANGELA SPRING Address: home [address] [place] [address] Name: PARISH SANTO Address: home [address] [place] [address]
--- OUTSIDE RECORDS SUMMARY | 2023-07-13 20:37 | XMS_ITS | Continuity of Care Document ---
Author Name Unknown Organization [facility] ter Address [address] [place] [id number]- Care Team Providers Care Pipe Insulator Name Role Phone Conrado PAUL, Bob Luis Primary Care Physic lisa [place] [facility] [place] 11/29/[address] [address]- Encounter Diagnosis Abdominal pain(Final) - 11/27/21 Discharge Disposition: A-D/C Home Attending Physician: Brianna Coyle MD Admitting Physician: Lucy Bonner MD Referring Physician: Not on Staff, Referring [...] Status Refusal Reason influenza virus vaccine, inactivated 11/27/21 Give n influenza virus vaccine, inactivated 05/23/19 Mahendra rded influenza virus vaccine, inactivated 06/08/18 Mahendra rded influenza virus vaccine, inactivated 11/13/09 Give n influenza virus vaccine, inactivated 1 09/06/08 Gi juanita influenza virus vaccine, inactivated 2 10/03/06 Gi juanita pneumococcal 13-valent vaccine 05/07/20 [...] without difficulty, tolerated well 2Result Comment: lot #[id number] 10/03/06 Medications amitriptyline 25 mg oral tablet 25 mg, 1, tablet, By Mouth, Daily at bedtime, Maintenance, 09/01/21 15:50:00 EST, ; Start Date: 09/01/21 Status: Ordered aspirin 81 mg oral delayed release tablet 81 mg, 1, tablet, By Mouth, Daily, # 30 tablet, Refills 1, Tot. Refills 1, Maintenance, 11/06/21 11:43:00 EST, Route to Pharmacy Electronically, [facility], Partial fill upon patient request if the prescription is for a schedule II opioi... Start Date: 11/06/21 Status: Ordered clonazePAM 0.5 mg oral tablet 0.5 tablet = 0.25 mg, By Mouth, Daily, PRN Anxiety, # 15 tablet, 1 Refills, Maintenance, 11/06/21 11:43:00 EST, Tablet, [facility], Partial fill upon patient request if the prescriptionis for a schedule II opioid drug., 155, cm, ... Start Date: 11/06/21 Stop Date: 01/05/22 Status: Ordered dicyclomine 20 mg oral tablet 1 tablet = 20 mg, By Mouth, 2 times a day, # 60 tablet, 0 Refills, Maintenance, 11/06/21 11:49:00 EST, Tablet, [facility], Partial fill upon patient request if the prescription is for aschedule II opioid drug., 155, cm, 09/03/21 8:09:00... Start Date: 11/06/21 Status: Ordered digoxin 0.125 mg oral tablet 125 mcg, Tablet, By Mouth, 11/29/21 16:00:00 EST Start Date: 11/29/21 Stop Date: 11/29/21 Status: Completed digoxin 0.125 mg oral tablet 125 mcg, 1, tablet, By Mouth, Daily, # 30 tablet, Refills 0, Tot. Refills 0, Maintenance, 11/06/21 11:50:00 EST, Route to Pharmacy Electronically, [facility], Partial fill upon patient request if the prescription is for a schedule II opi... Start Date: 11/06/21 Status: Ordered duloxetine 60 mg oral enteric [...] each, 0 Refills, Maintenance, 11/06/2210:50:00 EST, Injection, [facility], Partial fill upon patient request if the prescription is for a schedule II opioid drug., 155, cm, 12... Start Date: 11/06/21 Status: Ordered levETIRAcetam 100 mg/mL oral solution 7.5 mL = 750 mg, By Mouth, 2 times a day, # 450 mL, 0 Refills, Maintenance, 11/29/21 15:19:00 EST, Solution, [facility], Partial fill upon patient [...] 1 tablet = 12.5 mg, By Mouth, 3 times a day, PRN Dizziness, for 7 days, # 20 tablet, 0 Refills, Acute 12/06/21 15:20:00 EDT, 11/29/21 15:20:00 EST, Tablet, [facility], Partial fill uponpatient request if the prescription is for a schedu... Start Date: 11/29/21 Stop Date: 12/06/21 Status: Ordered MorPHINE Inj 1 mg, Injection, IV Push Slowly, Every 6 hours, PRN for Pain , Severe, Routine, 11/27/21 14:12:00 EST Start Date: 11/27/21 Stop Date: 12/04/21 Status: Ordered oxybutynin 5 mg oral tablet 1 tablet = 5 mg, By Mouth, 2 times a day, 0 Refills, Maintenance, 09/01/21 15:51:00 EST, ; Start Date: 09/01/21 Status: Ordered oxyCODONE 5 mg oral tablet 5 mg, 1, tablet, By Mouth, Every 6 hours, PRN, for 5 days, # 20 tablet, Refills 0, Tot. Refills 0, Acute 12/04/21 15:19:00 EDT, Pain , Moderate, 11/29/21 15:19:00 EST, Route to Pharmacy Electronically, [facility], Partial fill upon patie... Start Date: 11/29/21 Stop Date: 12/04/21 Status: Ordered oxyCODONE 5 mg oral tablet 5 mg, Tablet, By Mouth, Every 6 hours, PRN for Pain , Moderate, Routine, 11/28/21 11:19:00 EST Start Date: 11/28/21 Stop Date: 12/05/21 Status: Ordered ProAir HFA 90 mcg/inh inhalation aerosol with adapter 1, puffs, Inhalation, Every 6 hours, PRN, # 8.5 Gm, Refills 0, Maintenance, 11/06/19 15:20:00 EST, Aerosol Start Date: 11/06/19 Status: Ordered rOPINIRole 1 mg oral tablet 1 tablet = 1 mg, By Mouth, Daily at bedtime, Maintenance, 09/01/21 15:51:00 EST, ; Start Date: 09/01/21 Status: Ordered simvastatin 40 mg oral tablet 40 mg, 1, tablet, By Mouth, Daily at bedtime, # 30 tablet, Refills 1, Tot. Refills 1, Maintenance, 11/06/21 11:44:00 EST, Route to Pharmacy Electronically, [facility], Partial fill uponpatient request if the prescription is for a schedu... Start Date: 11/06/21 Status: Ordered Symbicort 80mcg/4.5mcg Inhaler 2, puffs, Inhalation, 2 times a day, # 1 each, Refills 0, Tot. Refills 0, Maintenance, 11/06/21 11:43:00 EST, Inhaler, Route to Pharmacy Electronically, [id number], [facility], 155, cm, 09/03/21 8:09:00 EST, Hei... Start Date: 11/06/21 Status: Ordered traZODone 50 mg oral tablet 50 mg, 1, tablet, By Mouth, Daily at bedtime, # 30 tablet, Refills 0, Tot. Refills 0, Maintenance, 11/06/21 11:44:00 EST, Route to Pharmacy Electronically, [facility], Partial fill uponpatient request if the prescription is for a schedu... Start Date: 11/06/21 Status: Ordered walker with wheels walker with wheels, See Instructions, # 1 each, Refills 0, Tot. Refills 0, Maintenance, Walker withwheels to improve balance, fall prevention, 11/29/21 14:50:00 EST, Supply Start Date: 11/29/21 Status: Ordered Zofran 4 mg oral tablet 1 tablet = 4 mg, By Mouth, 3 times a day, PRN Nausea, for 5 days, # 15 tablet, 5 Refills, Acute 12/29/21 15:20:00 EDT, 11/29/21 15:20:00 EST, [facility], Partial fill upon patient request if the prescription is for a schedule II opioid d... Start Date: 11/29/21 Stop Date: 12/29/21 Status: Ordered Problem List Condition Effective Dates [...] Reports Name Date Urine Culture (URINE CULTURE) 11/25/21 Microbiology Reports TEST:Urine Culture STATUS:Auth (Verified) BODY SITE: SOURCE:URINE COLLECTED DATE/TIME:11/25/21 9:00 PM Urine Culture SPECIMEN DESCRIPTION : URINE SPECIAL REQUESTS : NONE CULTURE : >100,000 COL/ML STREPTOCOCCUS AGALACTIAE SERO GROUP B This isolate was identified using Maldi-TOF system SUSCEPTIBILITY TESTING NOT ROUTINELY PERFORMED ON THIS ISOLATE. REPORT STATUS : FINAL 11/27/2021 Radiology Reports * Exam Date Time Procedure Performing Provider Status 11/26/21 12:59 AM Knee 3 Views Right Chavo Bower; Au th (Verified) Notes: (Knee 3 Views Right) Reason For Exam: Pain RESULT: Knee 3 Views Right Knee 3 Views Right Hx of Present Illness: Pt from home called for cp, n v has been unable to take PO meds for 4 days dt vomiting and passing pills through colostomy. Also reports no urine output x2 days. En route had x5 tonic-clonic seizures received versed by ems. Now post-ictal but conversant.; Reason: Pain; Clinical Question(s): Fracture; Special Instructions: Patella ([place]) COMPARISON: 12/21/2010. FINDINGS: There is a moderate-sized suprapatellar joint effusion. Questionable lucent line at the medial tibial plateau. Again demonstrated is tricompartmental osteoarthritis worse at the medial knee compartments with joint space narrowing and spurring. There is prepatellar soft tissue swelling. IMPRESSION: 1. Moderate-sized suprapatellar joint effusion. 2. Questionable lucent line in the medial tibial plateau which may be artifactual or may represent a nondisplaced fracture line. 3. Again demonstrated is tricompartmental osteoarthritis worst at the medial knee compartments. WSN: [id number] Ordering Physician: Socorro Sexton Dictated By: Yohana Goss MD Dictated Date/Time: 11/26/21 5:41 am Reviewed By: Yohana Goss MD Signed By: Yohana Goss MD Signed Date/Time: 11/26/21 5:41 am Transcribed By: MARIA Transcribed Date/Time: 11/26/21 5:37 am * Exam Date Time Procedure Performing Provider Status 11/26/21 12:59 AM Chest 2 Views Frontal and Lat Chavo Bower; Auth (Verified) Notes: (Chest 2 Views Frontal and Lat) Reason For Exam: Shortness of Breath RESULT: Chest 2 Views Frontal and Lat Chest 2 Views Frontal and Lat Hx of Present Illness: Pt from home called for cp, n v has been unable to take PO meds for 4 days dt vomiting and passing pills through colostomy. Also reports no urine output x2 days. En route had x5 tonic-clonic seizures received versed by ems. Now post-ictal but conversant.; Reason: Shortness of Breath; Clinical Question(s): Pneumonia COMPARISON: 11/02/2021. FINDINGS: LINES AND TUBES: None. LUNGS AND PLEURA: There is stable elevation of the right hemidiaphragm with persistent blunting of the right costophrenic angle. There is persistent mild pulmonary vascular congestion. No pneumothorax. HEART, MEDIASTINUM AND ALEXUS: Heart is normal in size. Normal upper mediastinal and hilar contour. BONES AND SOFT TISSUES: No acute abnormality. IMPRESSION: Stable abnormal chest radiograph as detailed above. WSN: [id number] Ordering Physician: Socorro Sexton Dictated By: Yohana Goss MD Dictated Date/Time: 11/26/21 5:31 am Reviewed By: Yohana Goss MD Signed By: Yohana Goss MD Signed Date/Time: 11/26/21 5:31 am Transcribed By: MARIA Transcribed Date/Time: 11/26/21 5:29 am Vital Signs Most recent to oldest [Reference Range]: 1 2 3 Weight 52.5 kg (11/27/21 6:01 AM) 55 kg (11/26/21 5:19 AM) Oxygen Saturation [94-100 %] 99 % (11/29/21 4:09 PM) 95 % (11/29/21 10:05 AM) 94 % (11/29/21 2:13 AM) Pulse Rate [55-90 bpm] 74 bpm (11/29/21 4:09 PM) 94 bpm *H* (11/29/21 4:02 PM) 68 bpm (11/29/21 10:05 AM) Blood Pressure [90-138/55-84 mm Hg] 103/72mm Hg (11/29/21 4:09 PM) 108/70mm Hg (11/29/21 10:05 AM) 109/71mm Hg (11/29/21 3:00 AM) Respiratory Rate [16-30 br/min] 19 br/min (11/29/21 4:09 PM) 16 br/min (11/29/21 4:02 PM) 17 br/min (11/29/21 2:10 PM) Temperature [96.8-100.4 DegF] 98.0 DegF (11/29/21 4:09 PM) 98.4 DegF (11/29/21 10:05 AM) 97.6 DegF (11/29/21 2:13 AM) Liters per Minute 10 L/min (11/25/21 8:26 PM) Mode of Delivery (Oxygen) Room air (11/29/21 4:09 PM) Room air (11/29/21 10:05 AM) Room air (11/29/21 2:13 AM) Blood pressure sites Arm, right (11/29/21 4:09 PM) Arm, right (11/29/21 10:05 AM) Arm, right (11/29/21 3:00 AM) Temperature Route Oral (11/29/21 4:09 PM) Oral (11/29/21 10:05 AM) Oral (11/29/21 2:13 AM) Weight Obtained Via Bed scale (11/27/21 6:01 AM) Bed scale (11/26/21 5:19 AM) Social History Social History Type Response Smoking Status Never (less than 100 in lifetime) entered on: 11/26/21 Sex
--- OUTSIDE RECORDS SUMMARY | 2023-07-13 20:37 | XMS_ITS | Continuity of Care Document ---
Author Name Unknown Organization [facility] Address [address] [place] [address]- Care Team Providers Care Blintze Roller Name Role Phone Bryson Wright MD Primary Care Physician Encounter [facility] [place] Date(s): 03/21/23 - 04/20/23 [facility] [address] [place] [address]- [place] Allergies, Adverse Reactions, Alerts Substance Reaction [...] inactivated 2 10/03/06 Gi juanita SARS-CoV-2 mRNA (qwxknmp-iubx-hlync) vax 02/25/22 Given SARS-CoV-2 mRNA (tnuoglz-bnmg-cwyjb) vax 3 12/11/21 Given pneumococcal 13-valent vaccine [...] without difficulty, tolerated well 2Result Comment: lot #[id number] 10/03/06 3Early/Late Reason: Early/Late Reason: Med Not Available Medications Carafate 1 gm oral tablet 1 Gm, 1, tablet, By Mouth, 3 times a day before meals and bedtime, # 56 tablet, Refills 0, Tot. Refills 0, Maintenance, 03/06/23 9:28:00 EDT, Route to Pharmacy Electronically, [facility], Partial fill upon patient request if the prescrip... Start Date: 03/06/23 Stop Date: 03/20/23 Status: Ordered dicyclomine 20 mg oral tablet 1 tablet = 20 mg, By Mouth, 2 times a day, # 60 tablet, 0 Refills, Maintenance, 11/06/21 11:49:00 EST, Tablet, [facility], Partial fill upon patient request if the prescription is for aschedule II opioid drug., 155, cm, 09/03/21 8:09:00... Start Date: 11/06/21 Status: Ordered digoxin 0.125 mg oral tablet 1, tablet, By Mouth, Daily, # 30 tablet, Refills 1, Route to Pharmacy Electronically, [id number], 156, cm, 03/01/22 4:19:00 EDT, Height, 55.2, [...] 0 Refills, Maintenance, 11/29/21 15:19:00 EST, Solution, [facility], Partial fill upon patient request [...] Refills, Maintenance, 03/01/22 9:50:00 EDT, Tablet, [id number], Partial fill upon patient request if [...] 11/06/21 11:44:00 EST, Route to Pharmacy Electronically, [facility], Partial fill uponpatient request if the prescription is for a schedu... Start Date: 11/06/21 Status: Ordered Symbicort 80mcg/4.5mcg Inhaler 2, puffs, Inhalation, 2 times a day, # 1 each, Refills 0, Tot. Refills 0, Maintenance, 11/06/21 11:43:00 EST, Inhaler, Route to Pharmacy Electronically, [id number], [facility], 155, cm, 09/03/21 8:09:00 EST, Hei... Start Date: 11/06/21 Status: Ordered traZODone 50 mg oral tablet 50 mg, 1, tablet, By Mouth, Daily at bedtime, # 30 tablet, Refills 0, Tot. Refills 0, Maintenance, 11/06/21 11:44:00 EST, Route to Pharmacy Electronically, [facility], Partial fill uponpatient request if the [...] Team Personnel Name: Sophie Crane RN Position: [facility] RN Member Role: Primary Care Nurse Name: Bryson Wright MD Position: Reference Physician Member Role: PCP Address: Address: [address] [place] [address] [place] [address] Name: Honorio Boudreaux RN Position: [facility] RN Member Role: Primary Care Nurse Name: Omid Rodriguez RN Position: [facility] RN Member Role: Primary Care Nurse Name: Kat Wagner RN Position: [facility] OB RN Member Role: Primary Care Nurse Name: Jay Reich RN Position: [facility] RN Member Role: Primary Care Nurse Name: Mónica Montanez RN Position: [facility] SN RN Member Role: Primary Care Nurse Name: Yamilet Jack RN Position: [facility] RN Member Role: Primary Care Nurse Name: Jenni Crabtree RN Position: [facility] RN Member Role: Primary Care Nurse Name: Socorro Gilbert RN Position: [facility] SN RN Member Role: Primary Care Nurse Name: Delbert Coyne RN Position: [facility] RN Member Role: Primary Care Nurse Name: Lisa Deutsch RN Position: [facility] SN Senior Sales Consultant Member Role: Primary Care Nurse Name: Rubin Alberto RN Position: [facility] RN Member Role: Primary Care Nurse Name: Sunil Crowley RN Position: [facility] RN Member Role: Primary Care Nurse Name: Long Bravo Position: [facility] RN Member Role: Primary Care Nurse Name: Georgie Kruse RN Position: [facility] RN Member Role: Primary Care Nurse Name: Renu Azar RN Position: [facility] Onco RN Member Role: Primary Care Nurse Name: Noah Mccann RN Position: [facility] RN Member Role: Primary Care Nurse Name: Jamila Neil Position: [facility] RN Member Role: Primary Care Nurse Name: Juliana Rehman RN Position: [facility] RN Member Role: Primary Care Nurse Name: Aide Lockett RN Position: [facility] RN Member Role: Primary Care Nurse Name: Balbina Lafleur RN Position: [facility] RN Member Role: Primary Care Nurse Name: Genesis Stewart RN Position: [facility] RN Member Role: Primary Care Nurse Name: Maribel Dc RN Position: [facility] RN Supv Member Role: Primary Care Nurse Name: Sara Guevara RN Position: [facility] RN Member Role: Primary Care Nurse Name: Georgie Shirley RN Position: [facility] RN Member Role: Primary Care Nurse Name: Saniya Raines RN Position: [facility] RN Member Role: Primary Care Nurse Name: Jenifer Conway RN Position: [facility] RN Member Role: Primary Care Nurse Name: Tori Sanchez RN Position: [facility] RN Member Role: Primary Care Nurse Name: Syl Taylor NP Position: [facility] Associate Professional Member Role: Primary Care Nurse Address: Address: [address] [place] [address] [address] [facility] [place] [address]- Name: Johana Quintana RN Position: [facility] RN Member Role: Primary Care Nurse Name: Juliana Daniels RN Position: [facility] RN Member Role: Primary Care Nurse Name: Karla Ferrell RN Position: [facility] RN Member Role: Primary Care Nurse Name: Carmen Alvarado RN Position: [facility] SN RN Member Role: Primary Care Nurse Name: Leonela Huerta RN Position: [facility] RN Member Role: Primary Care Nurse Name: Ryan Moreno RN Position: S RN Member Role: Primary Care Nurse Name: Nadya Perales RN Position: S RN Member Role: Primary Care Nurse Name: Jenn Worley LPN Position: S RN Member Role: Primary Care Nurse Name: Kaye Murrieta RN Position: [facility] RN Member Role: Primary Care Nurse Care Team Related Persons Name: RYAN FELIZ Address: [facility] Name: GAVIN FELIZ Name: MICHAEL SPRING Address: home [address] [address] Name: TANGELA SPRING Address: home [address] [place] [address] Name: PARISH SANTO Address: [address] [place] [address]
--- OUTSIDE RECORDS SUMMARY | 2023-07-13 20:37 | XMS_ITS | Continuity of Care Document ---
Author Name Unknown Organization [facility] Address [address] [place] [address]- Care Team Providers Care District Manager Postal Service Name Role Phone Conrado PAUL, Bob Luis Primary Care Physic lisa Encounter [facility] [place] Date(s): 12/07/21 - 02/25/22 [facility] [address] [place] [address]- Attending Physician: Ji Del Toro MD Admitting Physician: Ji Del Toro MD Referring Physician: Bob Camp MD Allergies, Adverse Reactions, Alerts Substance Reaction [...] Vaccine Date Status Refusal Reason SARS-CoV-2 mRNA (ydpjewx-szjr-ongte) vax 02/25/22 Given SARS-CoV-2 mRNA (itzktoy-icum-eawcb) vax 1 12/11/21 Given influenza virus vaccine, [...] without difficulty, tolerated well 3Result Comment: lot #[id number] 10/03/06 Medications amitriptyline 25 mg oral tablet 25 mg, 1, tablet, By Mouth, Daily at bedtime, Maintenance, 09/01/21 15:50:00 EST, ; Start Date: 09/01/21 Status: Ordered dicyclomine 20 mg oral tablet 1 tablet = 20 mg, By Mouth, 2 times a day, # 60 tablet, 0 Refills, Maintenance, 11/06/21 11:49:00 EST, Tablet, [facility], Partial fill upon patient request if the prescription is for aschedule II opioid drug., 155, cm, 09/03/21 8:09:00... Start Date: 11/06/21 Status: Ordered digoxin 0.125 mg oral tablet 125 mcg, 1, tablet, By Mouth, Daily, # 30 tablet, Refills 1, Tot. Refills 1, Maintenance, 12/28/21 8:43:00 EDT, Route to Pharmacy Electronically, [id number], Partial fill upon patient requestif the [...] 0 Refills, Maintenance, 11/29/21 15:19:00 EST, Solution, [facility], Partial fill upon patient [...] 12/16/21 15:33:00 EDT, Route to Pharmacy Electronically, [facility], Partial fill upon patient request if the prescription is for a schedule... Start Date: 12/16/21 Status: Ordered Potassium Chloride (Uiw-Yzht-Jjb M10) 10 mEq oral tablet, extended release [...] 11/06/21 11:44:00 EST, Route to Pharmacy Electronically, [facility], Partial fill uponpatient request if the prescription is for a schedu... Start Date: 11/06/21 Status: Ordered Symbicort 80mcg/4.5mcg Inhaler 2, puffs, Inhalation, 2 times a day, # 1 each, Refills 0, Tot. Refills 0, Maintenance, 11/06/21 11:43:00 EST, Inhaler, Route to Pharmacy Electronically, [id number], [facility], 155, cm, 09/03/21 8:09:00 EST, Hei... Start Date: 11/06/21 Status: Ordered traZODone 50 mg oral tablet 50 mg, 1, tablet, By Mouth, Daily at bedtime, # 30 tablet, Refills 0, Tot. Refills 0, Maintenance, 11/06/21 11:44:00 EST, Route to Pharmacy Electronically, [facility], Partial fill uponpatient request [...] daily; one incident of stolen medications 02/26/12 28-07-05 [facility]inated by [facility] for violation of narcotic contract. 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 12-21-13 Opiate seeking behavior. Complex psychosocial issues. 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
--- OUTSIDE RECORDS SUMMARY | 2023-07-13 20:37 | XMS_ITS | Continuity of Care Document ---
Author Name Unknown Organization [facility] ter Address [address] [place] [address]- Care Team Providers Care Tan Room Supervisor Name Role Phone Not on Staff, PCP Primary Care Physician Unavail able Encounter [facility] Date(s): 03/20/20 - 04/29/[address] [address]- [facility] Attending Physician: Ji Del Toro MD Admitting [...] without difficulty, tolerated well 2Result Comment: lot #[id number] 10/03/06 Medications amitriptyline 25 mg oral [...] Ordered enoxaparin 60 mg/0.6 mL injectable solution 0.8 mL = 80 mg, Subcutaneous Injection, Daily, for 7 days, # 5.6 mL, 0 Refills, Acute 04/30/20 8:17:00 EDT, 04/23/20 8:17:00 EDT, [facility], 156, cm, 04/23/20 7:59:00 EDT, Height, 54, kg, 04/15/20 17:21:00 EDT, Dry Weight Start Date: 04/23/20 Stop Date: 04/30/20 Status: Ordered Keppra 500 mg oral tablet [...]
--- OUTSIDE RECORDS SUMMARY | 2023-07-13 20:37 | XMS_ITS | Continuity of Care Document ---
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 Name Role Phone Conrado PAUL, Bob Luis Primary Care Physic lisa Encounter [facility] Date(s): 04/10/20 - 04/11/[address] [address]- [facility] Encounter Diagnosis Hypomagnesemia(Final) - 04/11/20 Discharge Disposition: A-D/C Home Attending Physician: Dave Davenport MD Admitting Physician: Olaf Knox MD Referring Physician: Not on Staff, Referring [...] without difficulty, tolerated well 2Result Comment: lot #[id number] exp 10/03/06 Medications acetaminophen 500 mg oral [...] 9:33:32 EDT Start Date: 01/26/14 Status: Ordered metoprolol 50 mg oral tablet 1 tablet = 50 mg, By Mouth, 2 times a day, # 180 tablet, 0 Refills, Maintenance, 01/26/14 9:44:24 EDT, Tablet Start Date: 01/26/14 Status: Ordered Omeprazole = 20 mg, By Mouth, Daily, 0 Refills, Maintenance, 11/06/19 15:21:00 EST Start Date: 11/06/19 Status: Ordered Oxybutynin = 5 mg, By Mouth, 2 times a day, 0 Refills, Maintenance, 01/26/14 9:44:35 EDT Start Date: 01/26/14 Status: Ordered Oxycodone = 15 mg, By Mouth, 0 Refills, Maintenance, 04/11/20 6:29:00 EDT, Partial fill upon patient request Start Date: 04/11/20 Status: Ordered ProAir HFA 90 mcg/inh inhalation [...] 9:52:54 EDT Start Date: 01/26/14 Status: Ordered Spiriva HandiHaler 18 mcg Inhalation Capsule See Instructions, 1 capsule Inhalation Daily, 0 Refills, Maintenance, 01/26/14 9:54:15 EDT, Capsule Start Date: 01/26/14 Status: Ordered tiZANidine 4 [...] Exam Date Time Procedure Performing Provider Status 04/10/20 9:39 PM Chest Portable Olaf Mixon; Judy ( Verified) Notes: (Chest Portable) Reason For Exam: Shortness of Breath RESULT: Chest Portable Chest Portable Refer to EMR; Reason: Shortness of Breath; Clinical Question(s): CHF; Hx of Present Illness: developed seizures 3x at home today morning and 8x in the convenient store this evening . States not feeling well since Sunday. Just discharged from hospital last Sunday for UTI and A.fib. Had PE on Lovenox but out of medicine for 5 days.; Other Objective Findings: awake, alert, speaks in full sentences COMPARISON: 03/27/2020. FINDINGS: LINES AND TUBES: None. LUNGS AND PLEURA: Clear lungs with chronic blunting of the right costophrenic angle. No pleural effusion. No pneumothorax. HEART, MEDIASTINUM AND ALEXUS: Heart is normal in size. Normal mediastinal and hilar contour. BONES AND SOFT TISSUES: No acute abnormality. IMPRESSION: No acute cardiopulmonary pathology. Stable exam. WSN: [id number] Ordering Physician: Socorro Stallings Dictated By: Jalen Oconnell MD Dictated Date/Time: 04/10/20 9:49 pm Reviewed By: Jalen Oconnell MD Signed By: Jalen Oconnell MD Signed Date/Time: 04/10/20 9:49 pm Transcribed By: MARIA Transcribed Date/Time: 04/10/20 9:45 pm Vital Signs Most recent to oldest [Reference Range]: 1 2 3 Height 155 cm (04/11/20 11:48 AM) 155 cm (04/11/20 8:00 AM) 155 cm (04/11/20 6:21 AM) Weight 54 kg (04/11/20 6:21 AM) 54 kg (04/11/20 3:49 AM) 54 kg (04/11/20 2:49 AM) Oxygen Saturation [94-100 %] 98 % (04/11/20 11:48 AM) 99 % (04/11/20 8:00 AM) 99 % (04/11/20 5:32 AM) Pulse Rate [55-90 bpm] 58 bpm (04/11/20 11:48 AM) 77 bpm (04/11/20 9:57 AM) 77 bpm (04/11/20 8:00 AM) Body Mass Index [18.5-24.99] 22.48 (04/11/20 6:21 AM) 22.48 (04/11/20 3:49 AM) 22.48 (04/11/20 2:49 AM) Blood Pressure [90-138/55-84 mm Hg] 94/81mm Hg (04/11/20 11:48 AM) 109/68mm Hg (04/11/20 9:57 AM) 109/68mm Hg (04/11/20 8:00 AM) Respiratory Rate [16-30 br/min] 18 br/min (04/11/20 2:01 PM) 20 br/min (04/11/20 11:48 AM) 18 br/min (04/11/20 10:00 AM) Temperature [96.8-100.4 DegF] 97.5 DegF (04/11/20 11:48 AM) 97.7 DegF (04/11/20 8:00 AM) 97.8 DegF (04/11/20 3:49 AM) Mode of Delivery (Oxygen) Room air (04/11/20 11:48 AM) Room air (04/11/20 8:00 AM) Room air (04/11/20 5:32 AM) Blood pressure sites Arm, right (04/11/20 11:48 AM) Arm, left (04/11/20 8:00 AM) Arm, right (04/11/20 5:32 AM) Temperature Route Oral (04/11/20 11:48 AM) Oral (04/11/20 8:00 AM) Oral (04/11/20 3:49 AM) Dry Weight 54 kg (04/11/20 6:21 AM) 54 kg (04/11/20 3:49 AM) 54 kg (04/11/20 2:49 AM) Weight Obtained Via Bed scale (04/11/20 6:21 AM) Dry Weight Obtained Via Bed scale (04/11/20 6:21 AM) Social History Social History Type Response Smoking Status Never (less than 100 in lifetime) entered on: 11/14/18 Sex
--- OUTSIDE RECORDS SUMMARY | 2023-07-13 20:37 | XMS_ITS | Continuity of Care Document ---
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 Name Role Phone Not on Staff, PCP Primary Care Physician Unavail able Encounter [facility] Date(s): 10/13/22 - 11/12/22 [facility] [address] [place] [address]- [place] Allergies, Adverse Reactions, Alerts Substance Reaction [...] inactivated 2 10/03/06 Gi juanita SARS-CoV-2 mRNA (rurtxzd-uzsa-hmxzv) vax 02/25/22 Given SARS-CoV-2 mRNA (xqtmxgw-wxly-gfzxi) vax 3 12/11/21 Given pneumococcal 13-valent vaccine [...] without difficulty, tolerated well 2Result Comment: lot #[id number] exp 10/03/06 3Early/Late Reason: Early/Late Reason: Med Not Available Medications Acetaminophen 0 Refills, Maintenance, 11/09/22 14:03:00 EST, Partial fill upon patient request if the prescription is for a schedule II opioid drug. Start Date: 11/09/22 Status: Ordered amitriptyline 25 mg oral tablet 25 mg, 1, tablet, By Mouth, Daily at bedtime, Maintenance, 09/01/21 15:50:00 EST, ; Start Date: 09/01/21 Status: Ordered dicyclomine 20 mg oral tablet 1 tablet = 20 mg, By Mouth, 2 times a day, # 60 tablet, 0 Refills, Maintenance, 11/06/21 11:49:00 EST, Tablet, [facility], Partial fill upon patient request if the prescription is for aschedule II opioid drug., 155, cm, 09/03/21 8:09:00... Start Date: 11/06/21 Status: Ordered digoxin 0.125 mg oral tablet 1, tablet, By Mouth, Daily, # 30 tablet, Refills 1, Route to Pharmacy Electronically, [id number], 156, cm, 03/01/22 4:19:00 EDT, Height, 55.2, [...] 0 Refills, Maintenance, 11/29/21 15:19:00 EST, Solution, [facility], Partial fill upon patient [...] 0 Refills, Maintenance, 03/01/22 9:50:00 EDT, Tablet, [facility]/pharmacy #[id number], Partial fill upon patient request if the prescription is for a schedule II opioid drug., 1 tablet By Mouth Daily,x30 days, 156, cm, 03/01... Start Date: 03/01/22 Stop Date: 03/31/22 Status: Ordered oxybutynin 5 mg oral tablet 1 tablet = 5 mg, By Mouth, 2 times a day, 0 Refills, Maintenance, 09/01/21 15:51:00 EST, ; Start Date: 09/01/21 Status: Ordered ProAir HFA 90 mcg/inh inhalation [...] 11/06/21 11:44:00 EST, Route to Pharmacy Electronically, [facility], Partial fill uponpatient request if the prescription is for a schedu... Start Date: 11/06/21 Status: Ordered Symbicort 80mcg/4.5mcg Inhaler 2, puffs, Inhalation, 2 times a day, # 1 each, Refills 0, Tot. Refills 0, Maintenance, 11/06/21 11:43:00 EST, Inhaler, Route to Pharmacy Electronically, [id number], [facility], 155, cm, 09/03/21 8:09:00 EST, Hei... Start Date: 11/06/21 Status: Ordered traZODone 50 mg oral tablet 50 mg, 1, tablet, By Mouth, Daily at bedtime, # 30 tablet, Refills 0, Tot. Refills 0, Maintenance, 11/06/21 11:44:00 EST, Route to Pharmacy Electronically, [facility], Partial fill uponpatient request if the prescription is for a schedu... Start Date: 11/06/21 Status: Ordered Voltaren 1% topical gel 1 application, Topically, 4 times a day, PRN for pain, # 100 Gm, 0 Refills, Maintenance, 05/30/22 19:37:00 EDT, Gel, [id number], Partial fill upon patient request if [...] Team Personnel Name: Genna Segovia RN Position: S RN Member Role: Primary Care Nurse Name: Honorio Boudreaux RN Position: S RN Member Role: Primary Care Nurse Name: Kat Wagner RN Position: [facility] OB RN Member Role: Primary Care Nurse Name: Jay Reich RN Position: [facility] RN Member Role: Primary Care Nurse Name: Mónica Montanez RN Position: [facility] SN RN Member Role: Primary Care Nurse Name: Yamilet Jack RN Position: [facility] RN Member Role: Primary Care Nurse Name: Jenni Crabtree RN Position: [facility] RN Member Role: Primary Care Nurse Name: Socorro Gilbert RN Position: [facility] RN Member Role: Primary Care Nurse Name: Lisa Deutsch RN Position: [facility] SN Asset Protection Representative Member Role: Primary Care Nurse Name: Kari Grant RN Position: [facility] RN Member Role: Primary Care Nurse Name: Jalen Heath RN Position: [facility] RN Member Role: Primary Care Nurse Name: Georgie Kruse RN Position: [facility] RN Member Role: Primary Care Nurse Name: Renu Azar RN Position: [facility] Onco RN Member Role: Primary Care Nurse Name: Noah Mccann RN Position: [facility] RN Member Role: Primary Care Nurse Name: Jamila Neil Position: [facility] RN Member Role: Primary Care Nurse Name: Aide Lockett RN Position: [facility] RN Member Role: Primary Care Nurse Name: Balbina Lafleur RN Position: [facility] RN Member Role: Primary Care Nurse Name: Genesis Stewart RN Position: [facility] RN Member Role: Primary Care Nurse Name: Maribel Dc RN Position: [facility] RN Supv Member Role: Primary Care Nurse Name: Not on Staff, PCP Position: [facility] Physician (General Medicine) Member Role: PCP Name: Sara Guevara RN Position: [facility] RN Member Role: Primary Care Nurse Name: Georgie Shirley RN Position: [facility] RN Member Role: Primary Care Nurse Name: Saniya Raines RN Position: [facility] RN Member Role: Primary Care Nurse Name: Jenifer Conway RN Position: [facility] RN Member Role: Primary Care Nurse Name: Tori Sanchez RN Position: [facility] RN Member Role: Primary Care Nurse Name: Syl Taylor NP Position: [facility] Associate Professional Member Role: Primary Care Nurse Address: Address: [address] [place] [address] [address] [facility] [address]- Name: Johana Quintana RN Position: S RN Member Role: Primary Care Nurse Name: Juliana Daniels RN Position: S RN Member Role: Primary Care Nurse Name: Carmen Alvarado RN Position: S RN Member Role: Primary Care Nurse Name: Nadya Perales RN Position: S RN Member Role: Primary Care Nurse Name: Kaye Murrieta RN Position: S RN Member Role: Primary Care Nurse Care Team Related Persons Name: RYAN FELIZ Address: [facility] Name: GAVIN FELIZ Name: MICHAEL SPRING Address: [address] [address] Name: TANGELA SPRING Address: home [address] [place] [address] Name: PARISH SANTO Address: home [address] [place] [address]
--- OUTSIDE RECORDS SUMMARY | 2023-07-13 20:37 | XMS_ITS | Continuity of Care Document ---
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 Name Role Phone Bryson Wright MD Primary Care Physician [phone] Encounter [facility] Date(s): 03/26/23 - 07/01/23 [facility] [address] [place] [address]- Attending Physician: Ruben aSmpson MD Admitting Physician: Ruben Sampson MD Referring Physician: Bryson Wright MD Allergies, Adverse Reactions, Alerts Substance Reaction Severity Status codeine n-v Active doxycycline n-v rash Active penicillin 1 anaphylaxis rash Active tetracycline n-v rash Active levofloxacin n-v Active clindamycin n-v rash Active erythromycin n-v rash Active rifampin n-v rash Active oxacillin n-v rash Active amoxicillin n-v rash Amoxycillin allergy Active vancomycin n-v rash Active gabapentin States breathing difficulty and itchiness from med Severe Active sulfa drugs n-v rash Active Levaquin n-v rash Active Glutens Allergy to seafood Active Depakote Active Seafood Active Rice severe [...] inactivated 2 10/03/06 Gi juanita SARS-CoV-2 mRNA (piwwbam-rruj-plcec) vax 02/25/22 Given SARS-CoV-2 mRNA (njmxfwh-uqgq-xclgi) vax 3 12/11/21 Given pneumococcal 13-valent vaccine 8/14/20 Recorded Zoster Vaccine Live 12/30/18 Recorded zoster vaccine, inactivated 06/15/18 Recorded Tet/diphth/pertussis, acel (oldterm) 03/19/12 Give n influ virus vac, H1N1, inactive(oldterm) 10/24/09 Given Pneumococcal Poly (PPV23) (oldterm) 06/14/06 Given Pneumococcal Vaccine (oldterm) 06/14/06 Given 1Admin Note: given without difficulty, tolerated well 2Result Comment: lot #[id number] exp 10/03/06 3Early/Late Reason: Early/Late Reason: Med Not Available Medications Carafate 1 gm oral tablet 1 Gm, 1, tablet, By Mouth, 3 times a day before meals and bedtime, # 56 tablet, Refills 0, Tot. Refills 0, Maintenance, 03/06/23 9:28:00 EDT, Route to Pharmacy Electronically, [facility], Partial fill upon patient request if the prescrip... Start Date: 03/06/23 Stop Date: 03/20/23 Status: Ordered dicyclomine 20 mg oral tablet 1 tablet = 20 mg, By Mouth, 2 times a day, # 60 tablet, 0 Refills, Maintenance, 11/06/21 11:49:00 EST, Tablet, [facility], Partial fill upon patient request if the prescription is for aschedule II opioid drug., 155, cm, 09/03/21 8:09:00... Start Date: 11/06/21 Status: Ordered digoxin 0.125 mg oral tablet 1, tablet, By Mouth, Daily, # 30 tablet, Refills 1, Route to Pharmacy Electronically, [id number], 156, cm, 03/01/22 4:19:00 EDT, Height, 55.2, [...] 0 Refills, Maintenance, 11/29/21 15:19:00 EST, Solution, [facility], Partial fill upon patient [...] 0 Refills, Maintenance, 03/01/22 9:50:00 EDT, Tablet, [facility]/pharmacy #[id number], Partial fill upon patient [...] 11/06/21 11:44:00 EST, Route to Pharmacy Electronically, [facility], Partial fill uponpatient request if the prescription is for a schedu... Start Date: 11/06/21 Status: Ordered Symbicort 80mcg/4.5mcg Inhaler 2, puffs, Inhalation, 2 times a day, # 1 each, Refills 0, Tot. Refills 0, Maintenance, 11/06/21 11:43:00 EST, Inhaler, Route to Pharmacy Electronically, [id number][facility], 155, cm, 09/03/21 8:09:00 EST, Hei... Start Date: 11/06/21 Status: Ordered traZODone 50 mg oral tablet 50 mg, 1, tablet, By Mouth, Daily at bedtime, # 30 tablet, Refills 0, Tot. Refills 0, Maintenance, 11/06/21 11:44:00 EST, Route to Pharmacy Electronically, [facility], Partial fill uponpatient request [...] Team Personnel Name: Sophie Crane RN Position: [facility] RN Member Role: Primary Care Nurse Name: Bryson Wright MD Position: Reference Physician Member Role: PCP Address: Address: [address] [place] [address] [place] [id number] Name: Honorio Boudreaux RN Position: [facility] RN Member Role: Primary Care Nurse Name: Omid Rodriguez RN Position: [facility] RN Member Role: Primary Care Nurse Name: Kat Wagner RN Position: [facility] OB RN Member Role: Primary Care Nurse Name: Jay Reich RN Position: [facility] RN Member Role: Primary Care Nurse Name: Mónica Montanez RN Position: [facility] SN RN Member Role: Primary Care Nurse Name: Yamilet Jack RN Position: [facility] RN Member Role: Primary Care Nurse Name: Jenni Crabtree RN Position: [facility] RN Member Role: Primary Care Nurse Name: Socorro Gilbert RN Position: [facility] SN RN Member Role: Primary Care Nurse Name: Delbert Coyne RN Position: [facility] RN Member Role: Primary Care Nurse Name: Lisa Deutsch RN Position: [facility] SN Police Lieutenant Patrol Member Role: Primary Care Nurse Name: Kari Grant RN Position: [facility] RN Member Role: Primary Care Nurse Name: Rubin Alberto RN Position: [facility] RN Member Role: Primary Care Nurse Name: Sunil Crowley RN Position: [facility] RN Member Role: Primary Care Nurse Name: Long Bravo Position: [facility] RN Member Role: Primary Care Nurse Name: Georgie Kruse RN Position: [facility] RN Member Role: Primary Care Nurse Name: Renu Azar RN Position: [facility] Onco RN Member Role: Primary Care Nurse Name: Noah Mccann RN Position: [facility] RN Member Role: Primary Care Nurse Name: Jamila Neil Position: [facility] RN Member Role: Primary Care Nurse Name: Juliana Rehman RN Position: [facility] RN Member Role: Primary Care Nurse Name: Aide Lockett RN Position: [facility] RN Member Role: Primary Care Nurse Name: Balbina Lafleur RN Position: [facility] RN Member Role: Primary Care Nurse Name: Alexa Gomez RN Position: [facility] RN Member Role: Primary Care Nurse Name: Genesis Stewart NP Position: [facility] PCO Associate Professional Member Role: Primary Care Nurse Name: Maribel Dc RN Position: [facility] RN Supmathieu Member Role: Primary Care Nurse Name: Sara Guevara RN Position: [facility] RN Member Role: Primary Care Nurse Name: Georgie Shirley RN Position: [facility] RN Member Role: Primary Care Nurse Name: Saniya Raines RN Position: [facility] RN Member Role: Primary Care Nurse Name: Jenifer Conway RN Position: [facility] RN Member Role: Primary Care Nurse Name: Tori Sanchez RN Position: [facility] RN Member Role: Primary Care Nurse Name: Syl Taylor NP Position: [facility] Associate Professional Member Role: Primary Care Nurse Address: Address: [address] [place] [address] [address] [facility] [place] [address]- Name: Johana Quintana RN Position: [facility] RN Member Role: Primary Care Nurse Name: Juliana Daniels RN Position: [facility] RN Member Role: Primary Care Nurse Name: Karla Ferrell RN Position: [facility] RN Member Role: Primary Care Nurse Name: Carmen Alvarado RN Position: [facility] SN RN Member Role: Primary Care Nurse Name: Leonela Huerta RN Position: [facility] RN Member Role: Primary Care Nurse Name: Ryan Moreno RN Position: [facility] RN Member Role: Primary Care Nurse Name: Nadya Perales RN Position: [facility] RN Member Role: Primary Care Nurse Name: Jenn Worley LPN Position: [facility] RN Member Role: Primary Care Nurse Name: Kaye Murrieta RN Position: [facility] RN Member Role: Primary Care Nurse Care Team Related Persons Name: RYAN FELIZ Address: [facility] Name: GAVIN FELIZ Name: MICHAEL SPRING Address: [address] [address] Name: TANGELA SPRING Address: [address] [place] [address] Name: PARISH SANTO Address: [address] [place] [address]
--- OUTSIDE RECORDS SUMMARY | 2023-07-13 20:37 | XMS_ITS | Continuity of Care Document ---
Author Name Unknown Organization [facility] ter Address [address] [place] [address]- Care Team Providers Care Engineering Faculty Name Role Phone Not on Staff, PCP Primary Care Physician Unavail able Encounter [facility] Date(s): 04/27/20 - 04/29/[address] [address] Encounter Diagnosis Abdominal pain(Final) - 04/28/20 Discharge Disposition: A-D/C Home Attending Physician: Faith Marquez MD Admitting Physician: Poonam Licona DO Referring Physician: Not on Staff, Referring MD [...] without difficulty, tolerated well 2Result Comment: lot #[id number] exp 10/03/06 Medications amitriptyline 25 mg oral [...] Acute 04/30/20 8:17:00 EDT, 04/23/20 8:17:00 EDT, [facility], 156, cm, 04/23/20 7:59:00 EDT, [...] Complex psychosocial issues. 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 Vital Signs Most recent to oldest [Reference Range]: 1 2 3 Height 156 cm (04/29/20 10:13 AM) Weight 53.1 kg (04/29/20 10:13 AM) Oxygen Saturation [94-100 %] 99 % (04/29/20 8:07 AM) 95 % (04/29/20 5:45 AM) 95 % (04/29/20 12:27 AM) Pulse Rate [55-90 bpm] 66 bpm (04/29/20 3:33 PM) 62 bpm (04/29/20 8:07 AM) 58 bpm (04/29/20 5:45 AM) Body Mass Index [18.5-24.99] 21.82 (04/29/20 10:13 AM) Blood Pressure [90-138/55-84 mm Hg] 110/64mm Hg (04/29/20 8:07 AM) 112/60mm Hg (04/29/20 5:45 AM) 118/63mm Hg (04/29/20 12:27 AM) Respiratory Rate [16-30 br/min] 18 br/min (04/29/20 9:29 AM) 16 br/min (04/29/20 8:07 AM) 18 br/min (04/29/20 5:45 AM) Temperature [96.8-100.4 DegF] 98.4 DegF (04/29/20 8:07 AM) 97.7 DegF (04/29/20 5:45 AM) 97.4 DegF (04/29/20 12:27 AM) Mode of Delivery (Oxygen) Room air (04/29/20 8:07 AM) Room air (04/29/20 5:45 AM) Room air (04/29/20 12:27 AM) Blood pressure sites Arm, right (04/29/20 8:07 AM) Arm, left (04/29/20 5:45 AM) Arm, left (04/29/20 12:27 AM) Temperature Route Oral (04/29/20 8:07 AM) Oral (04/29/20 5:45 AM) Oral (04/29/20 12:27 AM) Weight Obtained Via Standing scale (04/29/20 10:13 AM) Social History Social History Type Response Smoking Status Never (less than 100 in lifetime) entered on: 11/14/18 Sex
--- OUTSIDE RECORDS SUMMARY | 2023-07-13 20:37 | XMS_ITS | Continuity of Care Document ---
Author Name Unknown Organization [facility] Address [address] [place] [address]- Care Team Providers Care Human Resources Leader Name Role Phone Not on Staff, PCP Primary Care Physician Unavail able Encounter [facility] Date(s): 11/09/22 - 12/09/22 [facility] [address] [place] [address]- Attending Physician: Val Prakash Admitting Physician: Val [...] inactivated 2 10/03/06 Gi juanita SARS-CoV-2 mRNA (dhpbbci-lawu-scfeh) vax 02/25/22 Given SARS-CoV-2 mRNA (bpdqxpn-pcyo-lfmvg) vax 3 12/11/21 Given pneumococcal 13-valent vaccine [...] without difficulty, tolerated well 2Result Comment: lot #[id number] 10/03/06 3Early/Late Reason: Early/Late Reason: Med [...] 0 Refills, Maintenance, 11/06/21 11:49:00 EST, Tablet, [facility], Partial fill upon patient request if the prescription is for aschedule II opioid drug., 155, cm, 09/03/21 8:09:00... Start Date: 11/06/21 Status: Ordered digoxin 0.125 mg oral tablet 1, tablet, By Mouth, Daily, # 30 tablet, Refills 1, Route to Pharmacy Electronically, [id number], 156, cm, 03/01/22 4:19:00 EDT, Height, 55.2, kg, 02/24/22 21:20:00 EDT, Dry Weight Start Date: 04/21/22 Status: Ordered duloxetine 60 mg oral enteric coated capsule 1 capsule = 60 mg, By Mouth, Daily, # 30 capsule, 0 Refills, Maintenance, 09/03/21 13:33:00 EST, ECCapsule, Partial fill upon patient request if the prescription is for a schedule II opioid drug. Start Date: 12/11/21 Status: Ordered Eliquis 5 mg oral tablet TAKE ONE (1) TABLET BY MOUTH TWICE DAILY Start Date: 02/24/22 Status: Ordered levETIRAcetam 100 mg/mL oral solution 7.5 mL = 750 mg, By Mouth, 2 times a day, # 450 mL, 0 Refills, Maintenance, 11/29/21 15:19:00 EST, Solution, [facility], Partial fill upon [...] 0 Refills, Maintenance, 03/01/22 9:50:00 EDT, Tablet, [facility]/pharmacy #[id number], Partial fill upon patient request [...] 11/06/21 11:44:00 EST, Route to Pharmacy Electronically, [facility] 3, Partial fill uponpatient request if the prescription is for a schedu... Start Date: 11/06/21 Status: Ordered Symbicort 80mcg/4.5mcg Inhaler 2, puffs, Inhalation, 2 times a day, # 1 each, Refills 0, Tot. Refills 0, Maintenance, 11/06/21 11:43:00 EST, Inhaler, Route to Pharmacy Electronically, [id number], [facility], 155, cm, 09/03/21 8:09:00 EST, Hei... Start Date: 11/06/21 Status: Ordered traZODone 50 mg oral tablet 50 mg, 1, tablet, By Mouth, Daily at bedtime, # 30 tablet, Refills 0, Tot. Refills 0, Maintenance, 11/06/21 11:44:00 EST, Route to Pharmacy Electronically, [facility], Partial fill uponpatient request if [...] 100 in lifetime);Never entered on: 02/24/22 Sex Note * Event Display: Non BH Lab Results Authored Date: [id number] Patient Care team information Care Team Personnel Name: Genna Segovia RN Position: [facility] RN Member Role: Primary Care Nurse Name: Honorio Boudreaux RN Position: [facility] RN Member Role: Primary Care Nurse Name: Kat Wagner RN Position: [facility] OB RN Member Role: Primary Care Nurse Name: Jay Reich RN Position: [facility] RN Member Role: Primary Care Nurse Name: Mónica Montanez RN Position: [facility] SN RN Member Role: Primary Care Nurse Name: Yamilet Jack RN Position: [facility] RN Member Role: Primary Care Nurse Name: Jenni Crabtree RN Position: [facility] RN Member Role: Primary Care Nurse Name: Socorro Gilbert RN Position: [facility] RN Member Role: Primary Care Nurse Name: Lisa Deutsch RN Position: [facility] SN Senior Director Finance Member Role: Primary Care Nurse Name: Kari Grant RN Position: [facility] RN Member Role: Primary Care Nurse Name: Georgie Kruse RN Position: [facility] RN Member Role: Primary Care Nurse Name: Renu Azar RN Position: [facility] Onco RN Member Role: Primary Care Nurse Name: Noah Mccann RN Position: [facility] RN Member Role: Primary Care Nurse Name: Jamila Neil Position: [facility] RN Member Role: Primary Care Nurse Name: Aide Lockett RN Position: [facility] RN Member Role: Primary Care Nurse Name: Balbina Lafleur RN Position: [facility] RN Member Role: Primary Care Nurse Name: Genesis Stewart RN Position: [facility] RN Member Role: Primary Care Nurse Name: Maribel Dc RN Position: [facility] RN Darby Member Role: Primary Care Nurse Name: Not on Staff, PCP Position: [facility] Physician (General Medicine) Member Role: PCP Name: Sara Guevara RN Position: [facility] RN Member Role: Primary Care Nurse Name: Georgie Shirley RN Position: [facility] RN Member Role: Primary Care Nurse Name: Saniya Raines RN Position: [facility] RN Member Role: Primary Care Nurse Name: Jenifer Conway RN Position: [facility] RN Member Role: Primary Care Nurse Name: Tori Sanchez RN Position: [facility] RN Member Role: Primary Care Nurse Name: Syl Taylor NP Position: [facility] Associate Professional Member Role: Primary Care Nurse Address: Address: [address] [facility] [place] [address]- Name: Johana Quintana RN Position: S RN Member Role: Primary Care Nurse Name: Juliana Daniels RN Position: [facility] RN Member Role: Primary Care Nurse Name: Carmen Alvarado RN Position: [facility] RN Member Role: Primary Care Nurse Name: Nadya Perales RN Position: [facility] RN Member Role: Primary Care Nurse Name: Kaye Murrieta RN Position: [facility] RN Member Role: Primary Care Nurse Care Team Related Persons Name: RYAN FELIZ Address: [facility] Name: GAVIN FELIZ Name: MICHAEL SPRING Address: home [address] [address] Name: TANGELA SPRING Address: [address] [place] [address] Name: PARISH SANTO Address: home [address] [place] [address]
--- OUTSIDE RECORDS SUMMARY | 2023-07-13 20:37 | XMS_ITS | Continuity of Care Document ---
Author Name Unknown Organization [facility] Address [address] [place] [id number]- Care Team Providers Care Uplands Division Director Name Role Phone Conrado PAUL, Bob Luis Primary Care Physic lisa Encounter [facility] Date(s): 12/27/21 - 01/26/22 [facility] [address] [place] [address]- [place] Allergies, Adverse Reactions, Alerts Substance Reaction [...] Vaccine Date Status Refusal Reason SARS-CoV-2 mRNA (fnpzpoe-kbsc-uodff) vax 1 12/11/21 Given influenza virus vaccine, [...] without difficulty, tolerated well 3Result Comment: lot #[id number] 10/03/06 Medications amitriptyline 25 mg oral tablet 25 mg, 1, tablet, By Mouth, Daily at bedtime, Maintenance, 09/01/21 15:50:00 EST, ; Start Date: 09/01/21 Status: Ordered aspirin 81 mg oral delayed release tablet 81 mg, 1, tablet, By Mouth, Daily, # 30 tablet, Refills 1, Tot. Refills 1, Maintenance, 11/06/21 11:43:00 EST, Route to Pharmacy Electronically, [facility], Partial fill upon patient request if the prescription is for a schedule II opioi... Start Date: 11/06/21 Status: Ordered clonazePAM 0.5 mg oral tablet 0.5 tablet = 0.25 mg, By Mouth, Daily, PRN Anxiety, # 15 tablet, 1 Refills, Maintenance, 11/06/21 11:43:00 EST, Tablet, [facility] 3, Partial fill upon patient request if the prescriptionis for a schedule II opioid drug., 155, cm, ... Start Date: 11/06/21 Stop Date: 01/05/22 Status: Ordered dicyclomine 20 mg oral tablet 1 tablet = 20 mg, By Mouth, 2 times a day, # 60 tablet, 0 Refills, Maintenance, 11/06/21 11:49:00 EST, Tablet, [facility], Partial fill upon patient request if the prescription is for aschedule II opioid drug., 155, cm, 09/03/21 8:09:00... Start Date: 11/06/21 Status: Ordered digoxin 0.125 mg oral tablet 125 mcg, 1, tablet, By Mouth, Daily, # 30 tablet, Refills 1, Tot. Refills 1, Maintenance, 12/28/21 8:43:00 EDT, [id number] Partial fill upon patient requestif the [...] each, 0 Refills, Maintenance, 11/06/2210:50:00 EST, Injection, [facility], Partial fill upon patient [...] 0 Refills, Maintenance, 11/29/21 15:19:00 EST, Solution, [facility], Partial fill upon patient [...] 12/16/21 15:33:00 EDT, Route to Pharmacy Electronically, [facility] 3, Partial fill upon patient request if [...] 11/06/21 11:44:00 EST, Route to Pharmacy Electronically, [facility] 3, Partial fill uponpatient request if the prescription is for a schedu... Start Date: 11/06/21 Status: Ordered Symbicort 80mcg/4.5mcg Inhaler 2, puffs, Inhalation, 2 times a day, # 1 each, Refills 0, Tot. Refills 0, Maintenance, 11/06/21 11:43:00 EST, Inhaler, Route to Pharmacy Electronically, [id number], [facility], 155, cm, 09/03/21 8:09:00 EST, Hei... Start Date: 11/06/21 Status: Ordered traZODone 50 mg oral tablet 50 mg, 1, tablet, By Mouth, Daily at bedtime, # 30 tablet, Refills 0, Tot. Refills 0, Maintenance, 11/06/21 11:44:00 EST, Route to Pharmacy Electronically, [facility], Partial fill uponpatient request [...]
--- OUTSIDE RECORDS SUMMARY | 2023-07-13 20:37 | XMS_ITS | Continuity of Care Document ---
Author Name Unknown Organization [facility] Address [address] [place] [address]- Care Team Providers Care Vice President Of Academic Affairs Name Role Phone Bryson Wright MD Primary Care Physician Encounter [facility] Date(s): 03/23/23 - 04/22/23 [facility] [address] [place] [id number]- [place] Allergies, Adverse Reactions, Alerts Substance Reaction [...] inactivated 2 10/03/06 Gi juanita SARS-CoV-2 mRNA (gkyikaw-wrmj-yzuae) vax 02/25/22 Given SARS-CoV-2 mRNA (hjbaiso-ypnt-cvbch) vax 3 12/11/21 Given pneumococcal 13-valent vaccine [...] without difficulty, tolerated well 2Result Comment: lot #[id number] exp 10/03/06 3Early/Late Reason: Early/Late Reason: Med Not Available Medications Carafate 1 gm oral tablet 1 Gm, 1, tablet, By Mouth, 3 times a day before meals and bedtime, # 56 tablet, Refills 0, Tot. Refills 0, Maintenance, 03/06/23 9:28:00 EDT, Route to Pharmacy Electronically, [facility], Partial fill upon patient request if the prescrip... Start Date: 03/06/23 Stop Date: 03/20/23 Status: Ordered dicyclomine 20 mg oral tablet 1 tablet = 20 mg, By Mouth, 2 times a day, # 60 tablet, 0 Refills, Maintenance, 11/06/21 11:49:00 EST, Tablet, [facility], Partial fill upon patient request if the prescription is for aschedule II opioid drug., 155, cm, 09/03/21 8:09:00... Start Date: 11/06/21 Status: Ordered digoxin 0.125 mg oral tablet 1, tablet, By Mouth, Daily, # 30 tablet, Refills 1, Route to Pharmacy Electronically, [id number], 156, cm, 03/01/22 4:19:00 EDT, Height, 55.2, [...] 0 Refills, Maintenance, 03/01/22 9:50:00 EDT, Tablet, [facility]/pharmacy #[id number], Partial fill upon [...] Route to Pharmacy Electronically, [facility], Partial fill uponpatient request if the prescription is for a schedu... Start Date: 11/06/21 Status: Ordered Symbicort 80mcg/4.5mcg Inhaler 2, puffs, Inhalation, 2 times a day, # 1 each, Refills 0, Tot. Refills 0, Maintenance, 11/06/21 11:43:00 EST, Inhaler, Route to Pharmacy Electronically, [id number], [facility], 155, cm, 09/03/21 8:09:00 EST, Hei... Start Date: 11/06/21 Status: Ordered traZODone 50 mg oral tablet 50 mg, 1, tablet, By Mouth, Daily at bedtime, # 30 tablet, Refills 0, Tot. Refills 0, Maintenance, 11/06/21 11:44:00 EST, Route to Pharmacy Electronically, [facility] 3, Partial fill uponpatient request [...] Team Personnel Name: Sophie Crane RN Position: [facility] RN Member Role: Primary Care Nurse Name: Bryson Wright MD Position: Reference Physician Member Role: PCP Address: Address: [address] [place] [address] Drive [address] [place] [address] Name: Honorio Boudreaux RN Position: [facility] RN Member Role: Primary Care Nurse Name: Omid Rodriguez RN Position: [facility] RN Member Role: Primary Care Nurse Name: Kat Wagner RN Position: [facility] OB RN Member Role: Primary Care Nurse Name: Jay Reich RN Position: [facility] RN Member Role: Primary Care Nurse Name: Mónica Montanez RN Position: [facility] SN RN Member Role: Primary Care Nurse Name: Yamilet Jack RN Position: [facility] RN Member Role: Primary Care Nurse Name: Jenni Crabtree RN Position: [facility] RN Member Role: Primary Care Nurse Name: Socorro Gilbert RN Position: [facility] SN RN Member Role: Primary Care Nurse Name: Delbert Coyne RN Position: [facility] RN Member Role: Primary Care Nurse Name: Lisa Deutsch RN Position: [facility] SN Chief Financial Officer Member Role: Primary Care Nurse Name: Rubin Alberto RN Position: [facility] RN Member Role: Primary Care Nurse Name: Sunil Crowley RN Position: [facility] RN Member Role: Primary Care Nurse Name: Long Bravo Position: [facility] RN Member Role: Primary Care Nurse Name: Georgie Kruse RN Position: [facility] RN Member Role: Primary Care Nurse Name: Renu Azar RN Position: [facility] Onco RN Member Role: Primary Care Nurse Name: Noah Mccann RN Position: [facility] RN Member Role: Primary Care Nurse Name: Jamila Neil Position: [facility] RN Member Role: Primary Care Nurse Name: Juliana Rehman RN Position: [facility] RN Member Role: Primary Care Nurse Name: Aide Lockett RN Position: [facility] RN Member Role: Primary Care Nurse Name: Balbina Lafleur RN Position: [facility] RN Member Role: Primary Care Nurse Name: Genesis Stewart RN Position: [facility] RN Member Role: Primary Care Nurse Name: Maribel Dc RN Position: [facility] RN Darby Member Role: Primary Care Nurse Name: Sara Guevara RN Position: [facility] RN Member Role: Primary Care Nurse Name: Georgie Shirley RN Position: [facility] RN Member Role: Primary Care Nurse Name: Saniya Raines RN Position: [facility] RN Member Role: Primary Care Nurse Name: Jenifer Conway RN Position: [facility] RN Member Role: Primary Care Nurse Name: Tori Sanchez RN Position: [facility] RN Member Role: Primary Care Nurse Name: Syl Taylor NP Position: [facility] Associate Professional Member Role: Primary Care Nurse Address: Address: [address] [place] [address] [address] [facility] [address]- Name: Johana Quintana RN Position: [facility] RN Member Role: Primary Care Nurse Name: Juliana Daniels RN Position: [facility] RN Member Role: Primary Care Nurse Name: Karla Ferrell RN Position: [facility] RN Member Role: Primary Care Nurse Name: Carmen Alvarado RN Position: [facility] SN RN Member Role: Primary Care Nurse Name: Leonela Huerta RN Position: [facility] RN Member Role: Primary Care Nurse Name: Ryan Moreno RN Position: [facility] RN Member Role: Primary Care Nurse Name: Nadya Perales RN Position: [facility] RN Member Role: Primary Care Nurse Name: Jenn Worley LPN Position: [facility] RN Member Role: Primary Care Nurse Name: Kaye Murrieta RN Position: [facility] RN Member Role: Primary Care Nurse Care Team Related Persons Name: RYAN FELIZ Address: [facility] Name: GAVIN FELIZ Name: MICHAEL SPRING Address: home [address] [address] Name: TANGELA SPRING Address: [address] [place] [address] Name: PARISH SANTO Address: [address] [place] [address]
--- OUTSIDE RECORDS SUMMARY | 2023-07-13 20:37 | XMS_ITS | Continuity of Care Document ---
Author Name Unknown Organization [facility] ter Address [address] [place] [id number]- Care Team Providers Care Cream Dipper Name Role Phone Conrado PAUL, Bob Luis Primary Care Physic lisa Encounter [facility] Date(s): 02/23/22 - 03/01/[address] [id number] Discharge Disposition: A-D/C Home Attending Physician: Flory Thao MD Admitting Physician: Moisés Grande MD Referring Physician: Not on Staff, Referring MD Allergies, Adverse Reactions, Alerts Substance Reaction Severity Status codeine n-v Active rifampin n-v rash Active oxacillin n-v rash Active gabapentin States breathing difficulty and itchiness from med Severe Active Levaquin n-v rash Active doxycycline n-v rash Active tetracycline n-v rash Active levofloxacin n-v Active clindamycin n-v rash Active erythromycin n-v rash Active amoxicillin n-v rash Amoxycillin allergy Active penicillin anaphylaxis rash Active vancomycin n-v rash Active sulfa drugs n-v rash Active Glutens Allergy to seafood Active Seafood Active Depakote Active Rice severe vomiting Active Immunizations Given and Recorded Vaccine Date Status Refusal Reason SARS-CoV-2 mRNA (aicaxon-rmtz-twuef) vax 02/25/22 Given SARS-CoV-2 mRNA (eegpkys-hcxm-vgpyn) vax 1 12/11/21 Given influenza virus vaccine, [...] without difficulty, tolerated well 3Result Comment: lot #[id number] 10/03/06 Medications amitriptyline 25 mg oral tablet 25 mg, 1, tablet, By Mouth, Daily at bedtime, Maintenance, 09/01/21 15:50:00 EST, ; Start Date: 09/01/21 Status: Ordered dicyclomine 20 mg oral tablet 1 tablet = 20 mg, By Mouth, 2 times a day, # 60 tablet, 0 Refills, Maintenance, 11/06/21 11:49:00 EST, Tablet, [facility], Partial fill upon patient request if the prescription is for aschedule II opioid drug., 155, cm, 09/03/21 8:09:00... Start Date: 11/06/21 Status: Ordered digoxin 0.125 mg oral tablet 125 mcg, 1, tablet, By Mouth, Daily, # 30 tablet, Refills 1, Tot. Refills 1, Maintenance, 12/28/21 8:43:00 EDT, Route to Pharmacy Electronically, [facility]/pharmacy #[id number], Partial fill upon patient requestif [...] 0 Refills, Maintenance, 11/29/21 15:19:00 EST, Solution, [facility], Partial fill upon patient [...] Date: 02/24/22 Stop Date: 03/06/22 Status: Ordered multivitamin with minerals Calcium and Magnesium oral tablet 1 tablet, By Mouth, Daily, # 30 tablet, 0 Refills, Maintenance, 03/01/22 9:50:00 EDT, Tablet, [facility]/pharmacy #[id number], Partial fill upon patient [...] hours, PRN for Pain , Moderate, Routine, 02/24/22 10:59:00 EDT Start Date: 02/24/22 Stop Date: 03/01/22 Status: Discontinued oxyCODONE 5 mg oral tablet 5 mg, 1, tablet, By Mouth, Every 6 hours, PRN, Refills 0, Tot. Refills 0, Maintenance, Pain , Moderate, 03/01/22 10:02:00 EDT, Partial fill upon patient request if the prescription is for a schedule II opioid drug. Start Date: 03/01/22 Status: Ordered phenazopyridine 100 mg oral tablet See Instructions, 1 tablet By Mouth 3 times a day after meals for 5 times, # 5 tablet, Refills 0, Tot. Refills 0, Acute 03/02/22 21:00:00 EDT, 03/01/22 9:51:00 EDT, Instructions Replace Required Details, Route to Pharmacy Electronically, [facility]/pharmacy... Start Date: 03/01/22 Stop Date: 03/02/22 Status: Ordered Potassium Chloride (Bjp-Ztxc-Jkk M10) 10 mEq oral tablet, extended release [...] 11/06/21 11:44:00 EST, Route to Pharmacy Electronically, [facility], Partial fill uponpatient request if the prescription is for a schedu... Start Date: 11/06/21 Status: Ordered Symbicort 80mcg/4.5mcg Inhaler 2, puffs, Inhalation, 2 times a day, # 1 each, Refills 0, Tot. Refills 0, Maintenance, 11/06/21 11:43:00 EST, Inhaler, Route to Pharmacy Electronically, [id number], [facility], 155, cm, 09/03/21 8:09:00 EST, Hei... Start Date: 11/06/21 Status: Ordered traZODone 50 mg oral tablet 50 mg, 1, tablet, By Mouth, Daily at bedtime, # 30 tablet, Refills 0, Tot. Refills 0, Maintenance, 11/06/21 11:44:00 EST, Route to Pharmacy Electronically, [facility], Partial fill uponpatient request if the [...] Reports Name Date Urine Culture (URINE CULTURE) 02/24/22 Microbiology Reports TEST:Urine Culture STATUS:Auth (Verified) BODY SITE: SOURCE:URINE COLLECTED DATE/TIME:02/24/22 8:37 AM Urine Culture SPECIMEN DESCRIPTION : URINE SPECIAL REQUESTS : NONE CULTURE : <10,000 COL/ML REPORT STATUS : FINAL 02/25/2022 Radiology Reports * Exam Date Time Procedure Performing Provider Status 02/23/22 11:17 PM Chest Portable Chavo Espinosa; Auth (Ve rified) Notes: (Chest Portable) Reason For Exam: Stroke;Other: RESULT: Chest Portable Chest Portable performed upright at 11:11 PM Hx of Present Illness: Stroke alert; Reason: Other:; Stroke; Clinical Question(s): CHF COMPARISON: Multiple prior chest x-rays, the most recent of which is dated 12/10/2021. FINDINGS: LINES AND TUBES: None. LUNGS AND PLEURA: No focal infiltrate. Interval resolution of the cyst seen patchy opacity at the left lung base. Normal pulmonary vascularity. No pleural effusion. No pneumothorax. HEART, MEDIASTINUM AND ALEXUS: Heart is normal in size. Normal upper mediastinal and hilar contour. BONES AND SOFT TISSUES: No acute abnormality. IMPRESSION: No acute abnormality. WSN: [id number] Ordering Physician: Nikos Clinton Dictated By: Lisa Guevara MD Dictated Date/Time: 02/23/22 11:24 p Reviewed By: Lisa Guevara MD Signed By: Lisa Guevara MD Signed Date/Time: 02/23/22 11:24 pm Transcribed By: MARIA Transcribed Date/Time: 02/23/22 11:22 pm Vital Signs Most recent to oldest [Reference Range]: 1 2 3 Height 156 cm (03/01/22 4:19 AM) 156 cm (02/28/22 11:31 PM) 156 cm (02/28/22 8:06 PM) Weight 55.5 kg (02/27/22 8:00 PM) 55.2 kg (02/24/22 9:20 PM) 55.2 kg (02/24/22 8:30 PM) Oxygen Saturation [94-100 %] 98 % (03/01/22 11:00 AM) 97 % (03/01/22 7:00 AM) 97 % (03/01/22 4:19 AM) Pulse Rate [55-90 bpm] 96 bpm *H* (03/01/22 11:00 AM) 79 bpm (03/01/22 7:00 AM) 98 bpm *H* (03/01/22 4:19 AM) Body Mass Index [18.5-24.99] 22.68 (02/24/22 9:20 PM) 22.68 (02/24/22 8:30 PM) Blood Pressure [90-138/55-84 mm Hg] 113/73mm Hg (03/01/22 11:00 AM) 111/70mm Hg (03/01/22 7:00 AM) 106/65mm Hg (03/01/22 4:19 AM) Respiratory Rate [16-30 br/min] 18 br/min (03/01/22 11:07 AM) 18 br/min (03/01/22 7:43 AM) 18 br/min (03/01/22 4:19 AM) Temperature [96.8-100.4 DegF] 97.8 DegF (03/01/22 11:00 AM) 96.9 DegF (03/01/22 7:00 AM) 97.8 DegF (03/01/22 4:19 AM) Liters per Minute 0 L/min (03/01/22 11:00 AM) 0 L/min (03/01/22 7:00 AM) 0 L/min (02/25/22 7:07 PM) Mode of Delivery (Oxygen) Room air (03/01/22 11:00 AM) Room air (03/01/22 7:00 AM) Room air (03/01/22 4:19 AM) Blood pressure sites Arm, right (03/01/22 11:00 AM) Arm, right (03/01/22 7:00 AM) Arm, right (03/01/22 4:19 AM) Temperature Route Temporal (03/01/22 11:00 AM) Temporal (03/01/22 7:00 AM) Temporal (03/01/22 4:19 AM) Dry Weight 55.2 kg (02/24/22 9:20 PM) 55.2 kg (02/24/22 8:30 PM) Weight Obtained Via Bed scale (02/27/22 8:00 PM) Bed scale (02/24/22 9:20 PM) Dry Weight Obtained Via Bed scale (02/24/22 9:20 PM) Social History Social History Type Response Smoking Status Never (less than 100 in lifetime);Never entered on: 02/24/22 Sex
--- OUTSIDE RECORDS SUMMARY | 2023-07-13 20:37 | XMS_ITS | Continuity of Care Document ---
Author Name Unknown Organization [facility] Address [address] [place] [address]- Care Team Providers Care Mothercraft Nurse Name Role Phone Bryson Wright MD Primary Care Physician [place] [facility] [place] 05/16/23 [facility] [address] [place] [id number]- Allergies, Adverse Reactions, Alerts Substance Reaction Severity Status codeine n-v Active doxycycline n-v rash Active tetracycline n-v rash Active levofloxacin n-v Active clindamycin n-v rash Active erythromycin n-v rash Active rifampin n-v rash Active oxacillin n-v rash Active amoxicillin n-v rash Amoxycillin allergy Active penicillin 1 anaphylaxis rash Active vancomycin n-v rash Active gabapentin States breathing difficulty and itchiness from med Severe Active sulfa drugs n-v rash Active Levaquin n-v rash Active Depakote Active Seafood Active Glutens Allergy to seafood Active Rice severe vomiting Active 1tolarates cefepime, [...] inactivated 2 10/03/06 Gi juanita SARS-CoV-2 mRNA (yetfmqw-tsom-hvirh) vax 02/25/22 Given SARS-CoV-2 mRNA (uojovxp-ieft-wnrgd) vax 3 12/11/21 Given pneumococcal 13-valent vaccine 05/07/20 Recorded Zoster Vaccine Live 12/30/18 Recorded zoster vaccine, inactivated 06/15/18 Recorded Tet/diphth/pertussis, acel (oldterm) 03/19/12 Give n influ virus vac, H1N1, inactive(oldterm) 10/24/09 Given Pneumococcal Poly (PPV23) (oldterm) 06/14/06 Given Pneumococcal Vaccine (oldterm) 06/14/06 Given 1Admin Note: given without difficulty, tolerated well 2Result Comment: lot #[id number] exp 10/03/06 3Early/Late Reason: Early/Late Reason: Med Not Available Medications Carafate 1 gm oral tablet 1 Gm, 1, tablet, By Mouth, 3 times a day before meals and bedtime, # 56 tablet, Refills 0, Tot. Refills 0, Maintenance, 03/06/23 9:28:00 EDT, Route to Pharmacy Electronically, [facility], Partial fill upon patient request if the prescrip... Start Date: 03/06/23 Stop Date: 03/20/23 Status: Ordered dicyclomine 20 mg oral tablet 1 tablet = 20 mg, By Mouth, 2 times a day, # 60 tablet, 0 Refills, Maintenance, 11/06/21 11:49:00 EST, Tablet, [facility], Partial fill upon patient request if the prescription is for aschedule II opioid drug., 155, cm, 09/03/21 8:09:00... Start Date: 11/06/21 Status: Ordered digoxin 0.125 mg oral tablet 1, tablet, By Mouth, Daily, # 30 tablet, Refills 1, Route to Pharmacy Electronically, [id number], 156, cm, 03/01/22 4:19:00 EDT, Height, 55.2, [...] 0 Refills, Maintenance, 11/29/21 15:19:00 EST, Solution, [facility], Partial fill upon patient [...] 0 Refills, Maintenance, 03/01/22 9:50:00 EDT, Tablet, [facility]/pharmacy #[id number], Partial fill upon patient request [...] Start Date: 11/06/19 Status: Ordered Rolling Walker Varun Walker, See Instructions, # 1 each, Refills [...] 11/06/21 11:44:00 EST, Route to Pharmacy Electronically, [facility], Partial fill uponpatient request if the prescription is for a schedu... Start Date: 11/06/21 Status: Ordered Symbicort 80mcg/4.5mcg Inhaler 2, puffs, Inhalation, 2 times a day, # 1 each, Refills 0, Tot. Refills 0, Maintenance, 11/06/21 11:43:00 EST, Inhaler, Route to Pharmacy Electronically, [id number], [facility], 155, cm, 09/03/21 8:09:00 EST, Hei... Start Date: 11/06/21 Status: Ordered traZODone 50 mg oral tablet 50 mg, 1, tablet, By Mouth, Daily at bedtime, # 30 tablet, Refills 0, Tot. Refills 0, Maintenance, 11/06/21 11:44:00 EST, Route to Pharmacy Electronically, [facility], Partial fill uponpatient request if the [...] Team Personnel Name: Sophie Crane RN Position: [facility] RN Member Role: Primary Care Nurse Name: Bryson Wright MD Position: Reference Physician Member Role: PCP Address: Address: [address] [place] [id number] Name: Honorio Boudreaux RN Position: [facility] RN Member Role: Primary Care Nurse Name: Omid Rodriguez RN Position: [facility] RN Member Role: Primary Care Nurse Name: Kat Wagner RN Position: [facility] OB RN Member Role: Primary Care Nurse Name: Jay Reich RN Position: [facility] RN Member Role: Primary Care Nurse Name: Mónica Montanez RN Position: [facility] SN RN Member Role: Primary Care Nurse Name: Yamilet Jack RN Position: [facility] RN Member Role: Primary Care Nurse Name: Jenni Crabtree RN Position: [facility] RN Member Role: Primary Care Nurse Name: Socorro Gilbert RN Position: [facility] SN RN Member Role: Primary Care Nurse Name: Delbert Coyne RN Position: [facility] RN Member Role: Primary Care Nurse Name: Lisa Deutsch RN Position: [facility] SN Supervisor Nut Processing Member Role: Primary Care Nurse Name: Rubin Alberto RN Position: [facility] RN Member Role: Primary Care Nurse Name: Sunil Crowley RN Position: [facility] RN Member Role: Primary Care Nurse Name: Long Bravo Position: [facility] RN Member Role: Primary Care Nurse Name: Georgie Kruse RN Position: [facility] RN Member Role: Primary Care Nurse Name: Renu Azar RN Position: [facility] Onco RN Member Role: Primary Care Nurse Name: Noah Mccann RN Position: [facility] RN Member Role: Primary Care Nurse Name: Jamila Neil Position: [facility] RN Member Role: Primary Care Nurse Name: Juliana Rehman RN Position: [facility] RN Member Role: Primary Care Nurse Name: Aide Lockett RN Position: [facility] RN Member Role: Primary Care Nurse Name: Balbina Lafleur RN Position: [facility] RN Member Role: Primary Care Nurse Name: Alexa Gomez RN Position: [facility] RN Member Role: Primary Care Nurse Name: Genesis Stewart RN Position: [facility] RN Member Role: Primary Care Nurse Name: Maribel Dc RN Position: [facility] RN Darby Member Role: Primary Care Nurse Name: Sara Guevara RN Position: [facility] RN Member Role: Primary Care Nurse Name: Georgie Shirley RN Position: [facility] RN Member Role: Primary Care Nurse Name: Saniya Raines RN Position: [facility] RN Member Role: Primary Care Nurse Name: Jenifer Conway RN Position: [facility] RN Member Role: Primary Care Nurse Name: Tori Sanchez RN Position: [facility] RN Member Role: Primary Care Nurse Name: Syl Taylor NP Position: [facility] Associate Professional Member Role: Primary Care Nurse Address: Address: [address] [place] [address] [address] [facility] [place] [address]- Name: Johana Quintana RN Position: [facility] RN Member Role: Primary Care Nurse Name: Juliana Daniels RN Position: [facility] RN Member Role: Primary Care Nurse Name: Karla Ferrell RN Position: [facility] RN Member Role: Primary Care Nurse Name: Carmen Alvarado RN Position: [facility] SN RN Member Role: Primary Care Nurse Name: Leonela Huerta RN Position: [facility] RN Member Role: Primary Care Nurse Name: Ryan Moreno RN Position: [facility] RN Member Role: Primary Care Nurse Name: Nadya Perales RN Position: [facility] RN Member Role: Primary Care Nurse Name: Jenn Worley LPN Position: [facility] RN Member Role: Primary Care Nurse Name: Kaye Murrieta RN Position: [facility] RN Member Role: Primary Care Nurse Care Team Related Persons Name: RYAN FELIZ Address: [facility] Name: GAVIN FELIZ Name: MICHAEL SPRING Address: [address] [address] Name: TANGELA SPRING Address: [address] [place] [address] Name: PARISH SANTO Address: [address] [place] [address]
--- OUTSIDE RECORDS SUMMARY | 2023-07-13 20:38 | XMS_ITS | Continuity of Care Document ---
Author Name Unknown Organization [facility] Address Unknown Care Team Providers Care Metal Moulder'S Assistant Name Role Phone Conrado PAUL, Bob Luis Primary Care Physic lisa [facility] Date[facility]s): 12/20/21 - 01/20/22 [facility] Attending Physician: Floridalma Webster MD Referring Physician: Conrado PAUL, Bob Luis [...] Vaccine Date Status Refusal Reason SARS-CoV-2 mRNA (zwygasa-xbot-xlwws) vax 1 12/11/21 Given influenza virus vaccine, [...] without difficulty, tolerated well 3Result Comment: lot #[id number] 10/03/06 Medications amitriptyline 25 mg oral tablet 25 mg, 1, tablet, By Mouth, Daily at bedtime, Maintenance, 09/01/21 15:50:00 EST, ; Start Date: 09/01/21 Status: Ordered aspirin 81 mg oral delayed release tablet 81 mg, 1, tablet, By Mouth, Daily, # 30 tablet, Refills 1, Tot. Refills 1, Maintenance, 11/06/21 11:43:00 EST, Route to Pharmacy Electronically, [facility], Partial fill upon patient request if the prescription is for a schedule II opioi... Start Date: 11/06/21 Status: Ordered clonazePAM 0.5 mg oral tablet 0.5 tablet = 0.25 mg, By Mouth, Daily, PRN Anxiety, # 15 tablet, 1 Refills, Maintenance, 11/06/21 11:43:00 EST, Tablet, [facility], Partial fill upon patient request if the prescriptionis for a schedule II opioid drug., 155, cm, ... Start Date: 11/06/21 Stop Date: 01/05/22 Status: Ordered dicyclomine 20 mg oral tablet 1 tablet = 20 mg, By Mouth, 2 times a day, # 60 tablet, 0 Refills, Maintenance, 11/06/21 11:49:00 EST, Tablet, [facility], Partial fill upon patient request if [...] each, 0 Refills, Maintenance, 11/06/2210:50:00 EST, Injection, [facility], Partial fill upon [...] 0 Refills, Maintenance, 11/29/21 15:19:00 EST, Solution, [facility], Partial fill upon [...] 12/16/21 15:33:00 EDT, Route to Pharmacy Electronically, [facility], Partial fill upon patient request if [...] 11/06/21 11:44:00 EST, Route to Pharmacy Electronically, [facility], Partial fill uponpatient request if the prescription is for a schedu... Start Date: 11/06/21 Status: Ordered Symbicort 80mcg/4.5mcg Inhaler 2, puffs, Inhalation, 2 times a day, # 1 each, Refills 0, Tot. Refills 0, Maintenance, 11/06/21 11:43:00 EST, Inhaler, Route to Pharmacy Electronically, [id number], [facility], 155, cm, 09/03/21 8:09:00 EST, Hei... Start Date: 11/06/21 Status: Ordered traZODone 50 mg oral tablet 50 mg, 1, tablet, By Mouth, Daily at bedtime, # 30 tablet, Refills 0, Tot. Refills 0, Maintenance, 11/06/21 11:44:00 EST, Route to Pharmacy Electronically, [facility], Partial fill uponpatient [...] (less than 100 in lifetime) entered on: 3/5/22 Sex
--- OUTSIDE RECORDS SUMMARY | 2023-07-13 20:38 | XMS_ITS | Continuity of Care Document ---
Author Name Unknown Organization [facility] Address Unknown Care Team Providers Care Detective Investigator Name Role Phone Conrado PAUL, Bob Luis Primary Care Physic lisa [facility]counter [facility] Date(s): 01/17/22 - 02/16/22 [facility] Attending Physician: Val Prakash Admitting Physician: Val Prakash Referring Physician: Admtr, Ar8 Allergies, Adverse Reactions, [...] Vaccine Date Status Refusal Reason SARS-CoV-2 mRNA (cgygsew-hggv-sscap) vax 1 12/11/21 Given influenza virus vaccine, [...] without difficulty, tolerated well 3Result Comment: lot #[id number] 10/03/06 Medications amitriptyline 25 mg oral tablet 25 mg, 1, tablet, By Mouth, Daily at bedtime, Maintenance, 09/01/21 15:50:00 EST, ; Start Date: 09/01/21 Status: Ordered aspirin 81 mg oral delayed release tablet 81 mg, 1, tablet, By Mouth, Daily, # 30 tablet, Refills 1, Tot. Refills 1, Maintenance, 11/06/21 11:43:00 EST, Route to Pharmacy Electronically, [facility], Partial fill upon patient request if the prescription is for a schedule II opioi... Start Date: 11/06/21 Status: Ordered clonazePAM 0.5 mg oral tablet 0.5 tablet = 0.25 mg, By Mouth, Daily, PRN Anxiety, # 15 tablet, 1 Refills, Maintenance, 11/06/21 11:43:00 EST, Tablet, [facility], Partial fill upon patient request if the prescriptionis for a schedule II opioid drug., 155, cm, ... Start Date: 11/06/21 Stop Date: 01/05/22 Status: Ordered dicyclomine 20 mg oral tablet 1 tablet = 20 mg, By Mouth, 2 times a day, # 60 tablet, 0 Refills, Maintenance, 11/06/21 11:49:00 EST, Tablet, [facility], Partial fill upon patient request if the prescription is for aschedule II opioid drug., 155, cm, 09/03/21 8:09:00... Start Date: 11/06/21 Status: Ordered digoxin 0.125 mg oral tablet 125 mcg, 1, tablet, By Mouth, Daily, # 30 tablet, Refills 1, Tot. Refills 1, Maintenance, 12/28/21 8:43:00 EDT, Route to Pharmacy Electronically, [facility]/pharmacy #[id number], Partial fill upon patient requestif the [...] each, 0 Refills, Maintenance, 11/06/2210:50:00 EST, Injection, [facility], Partial fill upon patient request [...] 0 Refills, Maintenance, 11/29/21 15:19:00 EST, Solution, [facility], Partial fill upon patient request [...] 15:33:00 EDT, Route to Pharmacy Electronically, [facility], Partial fill upon patient request [...] 11/06/21 11:44:00 EST, Route to Pharmacy Electronically, [facility], Partial fill uponpatient request if the prescription is for a schedu... Start Date: 11/06/21 Status: Ordered Symbicort 80mcg/4.5mcg Inhaler 2, puffs, Inhalation, 2 times a day, # 1 each, Refills 0, Tot. Refills 0, Maintenance, 11/06/21 11:43:00 EST, Inhaler, Route to Pharmacy Electronically, [id number], [facility], 155, cm, 09/03/21 8:09:00 EST, Hei... Start Date: 11/06/21 Status: Ordered traZODone 50 mg oral tablet 50 mg, 1, tablet, By Mouth, Daily at bedtime, # 30 tablet, Refills 0, Tot. Refills 0, Maintenance, 11/06/21 11:44:00 EST, Route to Pharmacy Electronically, [facility], Partial fill uponpatient request if [...]
--- OUTSIDE RECORDS SUMMARY | 2023-07-13 20:38 | XMS_ITS | Continuity of Care Document ---
Author Name Unknown Organization [facility] Address [address] [place] [address]- Care Team Providers Care Inventory Associate And Driver Name Role Phone Conrado PAUL, Bob Luis Primary Care Physic lisa [place] [facility] [place]19[place] - 07/20/[address] [address] [facility] Encounter Diagnosis Headache(Final) - 07/20/20 Discharge Disposition: A-D/C Home Attending Physician: Louis Seymour MD Admitting Physician: Louis Seymour MD Referring Physician: Not on Staff, Referring [...] to seafood Active Rice severe vomiting Active Seafood Active Immunizations Given and Recorded Vaccine Date [...] without difficulty, tolerated well 2Result Comment: lot #[id number] exp 10/03/06 Medications amitriptyline 25 mg oral [...] 0 Refills, Maintenance, 05/18/20 10:09:00 EDT, Injection, [facility], 155, cm, 05/18/20 7:48:00 [...] to oldest [Reference Range]: 1 2 3 Oxygen Saturation [94-100 %] 100 % (07/20/20 7:07 AM) 100 % (07/20/20 4:42 AM) 100 % (07/20/20 4:15 AM) Pulse Rate [55-90 bpm] 81 bpm (07/20/20 7:07 AM) 80 bpm (07/20/20 4:42 AM) 73 bpm (07/20/20 4:15 AM) Blood Pressure [90-138/55-84 mm Hg] 139/80mm Hg *H* (07/20/20 7:07 AM) 134/84mm Hg (07/20/20 4:42 AM) 116/71mm Hg (07/20/20 4:15 AM) Respiratory Rate [16-30 br/min] 16 br/min (07/20/20 7:07 AM) 19 br/min (07/20/20 4:42 AM) 18 br/min (07/20/20 4:15 AM) Temperature [96.8-100.4 DegF] 98.3 DegF (07/20/20 4:42 AM) 98.6 DegF (07/20/20 4:15 AM) 98.2 DegF (07/20/20 2:03 AM) Mode of Delivery (Oxygen) Room air (07/20/20 7:07 AM) Room air (07/20/20 4:42 AM) Room air (07/20/20 4:15 AM) Blood pressure sites Arm, left (07/20/20 4:42 AM) Arm, left (07/20/20 4:15 AM) Arm, right (07/20/20 2:03 AM) Temperature Route Oral (07/20/20 4:42 AM) Oral (07/20/20 4:15 AM) Oral (07/20/20 2:03 AM) Dry Weight 57 kg (07/20/20 7:07 AM) 57 kg (07/20/20 4:42 AM) 57 kg (07/20/20 4:15 AM) Social History Social History Type Response Smoking Status Never (less than 100 in lifetime) entered on: 11/14/18 Sex
--- OUTSIDE RECORDS SUMMARY | 2023-07-13 20:38 | XMS_ITS | Continuity of Care Document ---
Author Name Unknown Organization [facility] ter Address [address] [place] [id number]- Care Team Providers Care Assistant Service Manager Name Role Phone Kyle PAUL, Bryson Frias Primary Care Physician [phone] [facility] Date(s): 04/11/23 - 04/11/[address] [address] Discharge Disposition: A-D/C Home Attending Physician: Ruben Sampson MD Admitting Physician: Ruben Sampson MD Referring Physician: Ruben Sampson MD Allergies, Adverse Reactions, Alerts Substance Reaction [...] inactivated 2 10/03/06 Gi juanita SARS-CoV-2 mRNA (jsrqwqs-jgys-[id number]) vax 02/25/22 Given SARS-CoV-2 mRNA (akbnzwq-wcxo-cbyvm) vax 3 12/11/21 Given pneumococcal 13-valent vaccine [...] without difficulty, tolerated well 2Result Comment: lot #[id number] exp 10/03/06 3Early/Late Reason: Early/Late Reason: Med Not Available Medications Carafate 1 gm oral tablet 1 Gm, 1, tablet, By Mouth, 3 times a day before meals and bedtime, # 56 tablet, Refills 0, Tot. Refills 0, Maintenance, 03/06/23 9:28:00 EDT, Route to Pharmacy Electronically, [facility], Partial fill upon patient request if the prescrip... Start Date: 03/06/23 Stop Date: 03/20/23 Status: Ordered dicyclomine 20 mg oral tablet 1 tablet = 20 mg, By Mouth, 2 times a day, # 60 tablet, 0 Refills, Maintenance, 11/06/21 11:49:00 EST, Tablet, [facility], Partial fill upon patient request if the prescription is for aschedule II opioid drug., 155, cm, 09/03/21 8:09:00... Start Date: 11/06/21 Status: Ordered digoxin 0.125 mg oral tablet 1, tablet, By Mouth, Daily, # 30 tablet, Refills 1, Route to Pharmacy Electronically, [id number], 156, cm, 03/01/22 4:19:00 EDT, Height, 55.2, [...] 0 Refills, Maintenance, 11/29/21 15:19:00 EST, Solution, [facility], Partial fill upon [...] 0 Refills, Maintenance, 03/01/22 9:50:00 EDT, Tablet, [id number], Partial fill upon patient request if [...] 11/06/21 11:44:00 EST, Route to Pharmacy Electronically, [facility], Partial fill uponpatient request if the prescription is for a schedu... Start Date: 11/06/21 Status: Ordered Symbicort 80mcg/4.5mcg Inhaler 2, puffs, Inhalation, 2 times a day, # 1 each, Refills 0, Tot. Refills 0, Maintenance, 11/06/21 11:43:00 EST, Inhaler, Route to Pharmacy Electronically, [id number], [facility], 155, cm, 09/03/21 8:09:00 EST, Hei... Start Date: 11/06/21 Status: Ordered traZODone 50 mg oral tablet 50 mg, 1, tablet, By Mouth, Daily at bedtime, # 30 tablet, Refills 0, Tot. Refills 0, Maintenance, 11/06/21 11:44:00 EST, Route to Pharmacy Electronically, [facility], Partial fill uponpatient request if [...] oldest [Reference Range]: 1 2 3 Height 152.4 cm (04/11/23 12:36 PM) Weight 53.5 kg (04/11/23 12:36 PM) Oxygen Saturation [94-100 %] 99 % (04/11/23 1:51 PM) 99 % (04/11/23 1:45 PM) 99 % (04/11/23 1:39 PM) Pulse Rate [55-90 bpm] 72 bpm (04/11/23 1:51 PM) 70 bpm (04/11/23 1:45 PM) 82 bpm (04/11/23 1:39 PM) Body Mass Index [18.5-24.99 kg/m2] 23.03 kg/m2 (04/11/23 12:36 PM) Blood Pressure [90-138/55-84 mm Hg] 99/66mm Hg (04/11/23 1:51 PM) 96/64mm Hg (04/11/23 1:45 PM) 91/62mm Hg (04/11/23 1:39 PM) Respiratory Rate [16-30 br/min] 16 br/min (04/11/23 1:51 PM) 15 br/min *L* (04/11/23 1:45 PM) 16 br/min (04/11/23 1:39 PM) Temperature [96.8-100.4 DegF] 97.5 DegF (04/11/23 12:36 PM) Mode of Delivery (Oxygen) Room air (04/11/23 1:51 PM) Room air (04/11/23 1:45 PM) Room air (04/11/23 1:39 PM) Blood pressure sites Arm, left (04/11/23 12:36 PM) Temperature Route Temporal (04/11/23 12:36 PM) Weight Obtained Via Patient/family state d (04/11/23 12:36 PM) Social History Social History Type Response Smoking Status Never (less than 100 in lifetime);Never entered on: 02/24/22 Sex Note * Francia Brewer RN: PERFORM Event Display: Discharge/Transfer Note Hospital Authored Date: [id number] Nursing Discharge Note Entered On: 04/11/2023 13:37 EDT Performed On: 04/11/2023 13:37 EDT by Francia Brewer RN Nursing Discharge Note 2 Discharge Time : 04/11/2023 14:02 EDT Francia Brewer RN - 04/11/2023 14:03 EDT Discharge Level of Care at Discharge : Home/Correction/Foster Care Patient Left Unit Via : Wheelchair Patient Accompanied Off Unit with : Responsible adult DC Instructions Provided & Signed by Pt : Yes Patient Understands D/C Instructions : Yes Patient Instructions Discharge Signed : Yes Did Pt have Specialty Bed or Wound Vac : No Francia Brewer RN - 04/11/2023 13:37 EDT * Francia Brewer RN: PERFORM Event Display: Patient Education/Instruction Authored Date: [id number] Inpatient Adult Discharge Instructions [address] [id number] Name: JUJU BERNARD : 1955 Visit: 04/11/2023 11:49:00 Current Date: 04/11/2023 13:41 Account: [id number] Inpatient Adult Discharge Instructions We would like [...] and their families. Surveys are administered by [employer]. ?? If further treatment with your primary care physician or another doctor is recommended, it is important for you to keep the appointment. Call your primary care physician or return to the Emergency Department immediately if your condition worsens, fails to improve, or new symptoms develop. If you need to find a doctor, you can call [facility] [employer] for a referral at [phone] or toll free at [phone]I ([phone]) or log in to [email or web address].. ?? You can view and manage your care through the patient portal or by using a health care heather of your choosing. [employer] is a website that allows you to securely view your medical information including your hospital discharge summary, office visit summaries, medications and follow-up visits. You can also request appointments, renew medications, and request access to your medical information using a health care heather of your choosing, or just ask a question. You can enroll at [email or web address] or register during your next office visit. You have been discharged from [facility], Patient Care Unit: ENDO. If you have any questions regarding these instructions after you leave, please call us and we will be happy to assist you. [facility] Your Care Team Attending Physician Ruben Sampson MD Reason for Admission HX OF CRC, CRC SCREENING Tests Performed Below is a partial list of the tests performed during your hospitalization. You may have had other tests and procedures not included in this list. Please discuss all test results with your provider. Primary Care Provider Bryson Wright MD Advance Directive Health Care Proxy on File Yes - Health Care Proxy Discharge Vitals Temperature: 97.5 DegF Height: 152.4 cm Pulse Rate: 82 bpm Weight: 53.5 kg Respiratory Rate: 16 br/min Body Mass Index: 23.03 kg/m2 Systolic Blood Pressure: 91 mm Hg Body surface area: 1.5 Diastolic Blood Pressure: 62 mm Hg ?? Oxygen Saturation: 99 % ?? Studies Pending All tests and labs ordered during this hospital stay have been completed unless listed below. Please discuss all pending results with your provider listed above in these instructions. ?? No incomplete studies found What to do next Instructions From Your Doctor Discharge Orders Scheduled Follow-Up Appointments Sunday 11:15 AM EDT ?? Where: [facility] [address] [place] [address]- Status: Pending Sunday 8:15 AM EDT ?? With: Ruben Sampson MD Where: [facility] [address] [place] [address]- Status: Pending You Need to Schedule the Following Appointments Follow Up with??Kyle PAUL, Bryson Frias Where: [address] [place] [address] Drive [address] [place] [address]- Discharge Medications JUJU BERNARD :1955 Visit Date:04/11/2023 Medications: Please continue your medications until treatment is completed or stopped by your provider. Medications not listed below should be discontinued. Discuss any questions related to medications with your provider. What How Much When Instructions Next Dose Unchanged Albuterol (ProAir HFA 90 mcg/ inh inhalation aerosol with adapter) 1 puff(s) Inhalation Every 6 hours as needed for for wheezing Unchanged apixaban (Eliquis 5 mg oral tablet) TAKE ONE (1) TABLET BY MOUTH TWICE DAILY ?? Unchanged Budesonide-Formoterol (Symbicort 80mcg/ 4.5mcg Inhaler) 2 puff(s) Inhalation Twice a day Unchanged Dicyclomine (dicyclomine 20 mg oral tablet) 1 tab(s) Oral Twice a day Unchanged Digoxin (digoxin 0.125 mg oral tablet) 1 tab(s) Oral Daily Unchanged Duloxetine (duloxetine 60 mg oral enteric coated capsule) 1 capsule Oral Daily Unchanged Durable Medical Equipment (Rolling Walker) See instructions To help ambulate with Gait abnormality due to Lumbar radiculopathy pain ?? Unchanged Durable Medical Equipment (walker with wheels) See instructions Walker with wheels to improve balance, fall prevention ?? Unchanged levETIRAcetam (levETIRAcetam 100 mg/ mL oral solution) 7.5 Milliliter Oral Twice a day Duration: 30 Days Unchanged Levothyroxine (levothyroxine 0.05 mg oral tablet) 1 tab(s) Oral Daily Unchanged Loratadine (loratadine 10 mg oral tablet) 1 tab(s) Oral Daily Unchanged Multivitamin With Minerals (multivitamin with minerals Calcium and Magnesium oral tablet) 1 tab(s) Oral Daily Duration: 30 Days Unchanged Pantoprazole (pantoprazole 40 mg oral delayed release tablet) 40 Milligram Oral Twice a day Duration: 14 Days Unchanged Ropinirole (rOPINIRole 1 mg oral tablet) 1 tab(s) Oral Daily at Bedtime Unchanged Simvastatin (simvastatin 40 mg oral tablet) 1 tab(s) Oral Daily at Bedtime Unchanged Sucralfate (Carafate 1 gm oral tablet) 1 tab(s) Oral 3 times a day before meals and bedtime Duration: 14 Days Unchanged Trazodone (traZODone 50 mg oral tablet) 1 tab(s) Oral Daily at Bedtime Test Results Below is a partial list of the most recent Laboratory test results done prior to this discharge. You may have had other tests and procedures not included in this list. Please discuss all test resultswith your provider. Allergies (NKA means No Known Allergies) gabapentin??(States breathing difficulty and itchiness from med) Depakote Glutens??(Allergy to seafood) Levaquin??(n-v, rash) Rice??(severe vomiting) Seafood amoxicillin??(n-v, rash, Amoxycillin allergy) clindamycin??(n-v, rash) codeine??(n-v) doxycycline??(n-v, rash) erythromycin??(n-v, rash) levofloxacin??(n-v) oxacillin??(n-v, rash) penicillin??(anaphylaxis, rash) rifampin??(n-v, rash) sulfa drugs??(n-v, rash) tetracycline??(n-v, rash) vancomycin??(n-v, rash) Problems Active Problems??(19) Abdominal pain?? Chronic back pain?? Conversion disorder?? DIABETES MELLITUS?? [...] Educational Leaflet Providered with your Discharge Instructions. Surgery Medical Daystay Surgical Overnight Discharge Instructions?? Valuables and Belongings I fully understand and agree that [facility] accepts no responsibility for all my personal [...] to send valuables and belongings home. ?? Date for Pt to Sign Valuables/Belongings: 04/11/23 12:36:00 ?? Valuables & Belongings ?? Clothes Electronic devices Jewelry Monetary Items Personal devices Miscellaneous Medications (Valuables) Valuables at Bedside Pants, Shirt, Shoes Cell phone ? Valuables Sent Home ? Valuables Sent to Security ? Other Discharge Information ? Case Management Discharge Plan?? Discharge Plan?? Discharge Level of Care at Discharge: Home/Correction/Foster Care ?? Pulmonary Rehab Status?? Pulmonary Rehab Discharge Status?? Respiratory Rate: 16 br/min ? Common Emergency Awareness Tips IS [...] are strongly encouraged to quit. Please call [facility] [employer] at [phone] or [phone] ([phone]) or log in to [email or web address] for referrals to smoking cessation programs. ?? 684 Suicide & Crisis Lifeline is available 16/04 if you or someone you know needs to find a reason to keep living. By calling 849 you'll be connected to a skilled, trained counselor at a crisis center in your area. INPATIENT DISCHARGE INSTRUCTIONS SIGNATURE PAGE JOANAKAVINJUJU Location:[facility] Registration Date and Time:04/11/2023 11:49 EDT Primary Care Physician: Kyle PAUL, Bryson Frias, Attending Physician: Ruben Sampson MD, I JUJU BERNARD, have received the above patient education materials/instructions and have verbalized understanding. If ambulance or transport services are being used I further acknowledge being given a choice of service. ?? If you need to contact me, please call me at this number: . Patient/Master Automotive Glass Technician Name: Patient/Master Automotive Glass Technician Signature: Relationship to Patient: Witness Name/Signature: Date: * Francia Brewer RN: PERFORM Event Display: Patient Education Leaflets Authored Date: [id number] Surgery Medical Daystay Surgical Overnight Discharge Instructions ?? 295 Medical Daystay/Surgical Overnight Discharge Instructions ? Since your coordination and judgment may be altered by medication and/or anesthesia, a responsible adult must drive you home from the hospital. ? If you have received medication for pain or sedation while under our care, you should not drive, operate machinery, drink alcohol, or sign any legal documents for 24 hours.?? You should have someone with you at home tonight. ? Remain at home the day of discharge.?? You may be up and about unless otherwise instructed by your physician. ? You may resume your daily prescription medication schedule.?? Any depressant medication should be avoided for 24 hours unless otherwise instructed by your surgeon or anesthesiologist. ? Call your physician for a follow-up appointment.? If you experience unusual or severe pain not relied by your pain medication, excessive bleedingor drainage, persistent nausea and vomiting, excessive swelling or redness, foul odor from incisionsite or fever over 100.6F, you need to call your physician. ? A follow-up phone call by a nurse will be made the day after your procedure.?? If you have stayed with us over night, you will not be receiving a follow-up phone call. ? Nausea and vomiting are a common side effect of prescription pain medication.?? We recommend that pills are not taken on an empty stomach.?? While taking any prescription pain medication you should not drive or drink alcohol. ? Patient Care team information Care Team Personnel Name: Sophie Crane RN Position: [facility] RN Member Role: Primary Care Nurse Name: Bryson Wright MD Position: Reference Physician Member Role: PCP Address: Address: [address] [place] [address] [address] [place] [address]- [place] Name: Honorio Boudreaux RN Position: [facility] RN Member Role: Primary Care Nurse Name: Omid Rodriguez RN Position: [facility] RN Member Role: Primary Care Nurse Name: Kat Wagner RN Position: [facility] OB RN Member Role: Primary Care Nurse Name: Jay Reich RN Position: [facility] RN Member Role: Primary Care Nurse Name: Mónica Montanez RN Position: [facility] SN RN Member Role: Primary Care Nurse Name: Yamilet Jack RN Position: [facility] RN Member Role: Primary Care Nurse Name: Jenni Crabtree RN Position: [facility] RN Member Role: Primary Care Nurse Name: Socorro Gilbert RN Position: [facility] SN RN Member Role: Primary Care Nurse Name: Delbert Coyne RN Position: [facility] RN Member Role: Primary Care Nurse Name: Lisa Deutsch RN Position: [facility] SN Clinical Research Manager Member Role: Primary Care Nurse Name: Rubin Alberto RN Position: [facility] RN Member Role: Primary Care Nurse Name: Keo RNSunil Position: [facility] RN Member Role: Primary Care Nurse Name: Long Bravo Position: [facility] RN Member Role: Primary Care Nurse Name: Georgie Kruse RN Position: [facility] RN Member Role: Primary Care Nurse Name: Renu Azar RN Position: [facility] Onco RN Member Role: Primary Care Nurse Name: Noah Mccann RN Position: [facility] RN Member Role: Primary Care Nurse Name: Jamila Neil Position: [facility] RN Member Role: Primary Care Nurse Name: Juliana Rehman RN Position: [facility] RN Member Role: Primary Care Nurse Name: Aide Lockett RN Position: [facility] RN Member Role: Primary Care Nurse Name: Balbina Lafleur RN Position: [facility] RN Member Role: Primary Care Nurse Name: Genesis Setwart RN Position: [facility] RN Member Role: Primary Care Nurse Name: Maribel Dc RN Position: [facility] RN Darby Member Role: Primary Care Nurse Name: Sara Guevara RN Position: [facility] RN Member Role: Primary Care Nurse Name: Georgie Shirley RN Position: [facility] RN Member Role: Primary Care Nurse Name: Saniya Raines RN Position: [facility] RN Member Role: Primary Care Nurse Name: Jenifer Conway RN Position: [facility] RN Member Role: Primary Care Nurse Name: Tori Sanchez RN Position: [facility] RN Member Role: Primary Care Nurse Name: Syl Taylor NP Position: [facility] Associate Professional Member Role: Primary Care Nurse Address: Address: [address] [place] [address] [address] [facility] [place] [address]- Name: Johana Quintana RN Position: [facility] RN Member Role: Primary Care Nurse Name: Juliana Daniels RN Position: [facility] RN Member Role: Primary Care Nurse Name: Karla Ferrell RN Position: [facility] RN Member Role: Primary Care Nurse Name: Carmen Alvarado RN Position: [facility] SN RN Member Role: Primary Care Nurse Name: Leonela Huerta RN Position: [facility] RN Member Role: Primary Care Nurse Name: Ryan Moreno RN Position: [facility] RN Member Role: Primary Care Nurse Name: Nadya Perales RN Position: [facility] RN Member Role: Primary Care Nurse Name: Jenn Worley LPN Position: [facility] RN Member Role: Primary Care Nurse Name: Kaye Murrieta RN Position: [facility] RN Member Role: Primary Care Nurse Care Team Related Persons Name: RYAN FELIZ Address: [facility] Name: GAVIN FELIZ Name: MICHAEL SPRING Address: home [address] [address] Name: TANGELA SPRING Address: [address] [place] [address] Name: PARISH SANTO Address: home [address] [place] [address]
--- OUTSIDE RECORDS SUMMARY | 2023-07-13 20:38 | XMS_ITS | Continuity of Care Document ---
Demographics Address [address] [place] [address] Mobile Preferred Language so Marital Status Jewish Affiliation Scientologist Race White Ethnic Group Not or Lati no Author Name Unknown Organization [facility] Address [address] [place] [id number] Care Team Providers Care Audio Visual Specialist Name Role Phone Doe Agarwal MD Primary Care Physician [phone] Encounter [facility] Date(s): 09/26/19 - 10/06/19 [facility] [address] [place] [id number] Attending Physician: Val Prakash Admitting Physician: AdmtrVal Referring Physician: Admtr [id number] Allergies, Adverse Reactions, Alerts Substance Reaction [...] Active Levaquin n-v rash Active Depakote Active Rice severe vomiting Active [...] without difficulty, tolerated well 2Result Comment: lot #[id number] exp 10/03/06 Medications Albuterol See Instructions, 0 Refills, Maintenance, 01/26/14 9:55:05 Start Date: 01/26/14 Status: Ordered albuterol (OP) 0 Refills, Maintenance, 2 Start Date: 09/26/19 Status: Ordered amitriptyline 25 mg oral tablet 25 mg, 1, tablet, By Mouth, Daily at bedtime, Refills 0, Maintenance, 09/26/19 15:09:00 EST Start Date: 09/26/19 Status: Ordered aspirin 81 mg oral delayed release tablet 81 mg, 1, tablet, By Mouth, Daily, # 30 tablet, Refills 0, Maintenance, 09/26/19 15:04:00 EST Start Date: 09/26/19 Status: Ordered Belbuca 900 mcg buccal film 1 each = 900 mcg, Every 12 hours, 0 Refills, Maintenance, 09/26/19 15:14:00 EST Start Date: 09/26/19 Status: Ordered clonazePAM 0.5 mg oral tablet 1 tablet = 0.5 mg, By Mouth, 3 times a day, 0 Refills, Maintenance, 09/26/19 15:06:00 EST Start Date: 09/26/19 Status: Ordered clonazepam 0.5 mg oral tablet 1 tablet = 0.5 mg, By Mouth, 3 times a day, 0 Refills, Maintenance, 01/26/14 9:46:26, Tablet Start Date: 01/26/14 Status: Ordered Cymbalta 60 mg oral enteric coated capsule 1 capsule = 60 mg, By Mouth, Daily, # 30 capsule, 6 Refills, Maintenance, 12/30/13 10:12:43, EC Capsule Start Date: 12/30/13 Stop Date: 07/28/14 Status: Ordered Digoxin = 125 mcg, By Mouth, Daily, 0 Refills, Maintenance, 11/14/18 9:48:27 EST Start Date: 11/14/18 Status: Ordered Diphenoxylate See Instructions, 0 Refills, Maintenance, 01/26/14 9:50:44 Start Date: 01/26/14 Status: Ordered Enoxaparin See Instructions, 0 Refills, Maintenance, 01/26/14 9:57:38 Start Date: 01/26/14 Status: Ordered Esomeprazole 20 mg, By Mouth, Daily, Maintenance, 01/26/14 9:51:23 Start Date: 01/26/14 Status: Ordered Hydrocortisone = 10 mg, By Mouth, 0 Refills, Maintenance, 09/26/19 15:07:00 EST Start Date: 09/26/19 Status: Ordered Keppra 500 mg oral tablet 1 tablet = 500 mg, By Mouth, 2 times a day, # 180 tablet, 0 Refills, Maintenance, 09/26/19 15:05:00EST, Tablet Start Date: 09/26/19 Status: Ordered levothyroxine 0.025 mg oral tablet 1 tablet = 25 mcg, By Mouth, Daily, # 30 tablet, 0 Refills, Maintenance, 09/26/19 15:08:00 EST, Tablet Start Date: 09/26/19 Status: Ordered meclizine 12.5 mg oral tablet 1 tablet = 12.5 mg, By Mouth, Daily, 0 Refills, Maintenance, 01/26/14 9:32:57 Start Date: 01/26/14 Status: Ordered metoclopramide 10 mg oral tablet 1 tablet = 10 mg, By Mouth, Daily, 0 Refills, Maintenance, 01/26/14 9:33:32 Start Date: 01/26/14 Status: Ordered metoprolol 50 mg oral tablet 1 tablet = 50 mg, By Mouth, 2 times a day, # 180 tablet, 0 Refills, Maintenance, 01/26/14 9:44:24, Tablet Start Date: 01/26/14 Status: Ordered Oxybutynin = 15 mg, By Mouth, Daily, 0 Refills, Maintenance, 01/26/14 9:44:35 Start Date: 01/26/14 Status: Ordered oxyCODONE 15 mg oral tablet 1 tablet = 15 mg, By Mouth, Every 6 hours, PRN as needed for pain, 0 Refills, Maintenance, 09/26/2014:07:00 EST, Tablet, Partial fill upon patient request Start Date: 09/26/19 Status: Ordered Ropinirole = 1 mg, By Mouth, Daily, 0 Refills, Maintenance, 01/26/14 9:51:56 Start Date: 01/26/14 Status: Ordered Simvastatin = 40 mg, By Mouth, Daily at bedtime, 0 Refills, Maintenance, 01/26/14 9:52:54 Start Date: 01/26/14 Status: Ordered Spiriva HandiHaler 18 mcg Inhalation Capsule See Instructions, 1 capsule Inhalation Daily, 0 Refills, Maintenance, 01/26/14 9:54:15, Capsule Start Date: 01/26/14 Status: Ordered Symbicort 80mcg/4.5mcg Inhaler 2, puffs, Inhalation, 2 times a day, # 10.2 Gm, Refills 0, Maintenance, 09/26/19 15:05:00 EST, Aerosol Start Date: 09/26/19 Status: Ordered Trazodone = 100 mg, By Mouth, Daily, 0 Refills, Maintenance, 01/26/14 9:52:26 Start Date: 01/26/14 Status: Ordered Zofran ODT [...]
--- OUTSIDE RECORDS SUMMARY | 2023-07-13 20:38 | XMS_ITS | Continuity of Care Document ---
Author Name Unknown Organization [facility] ter Address [address] [place] [id number] Care Team Providers Care Documentation Specialist Name Role Phone Not on Staff, PCP Primary Care Physician Unavail able Encounter [facility] Date(s): 02/11/23 - 03/06/[address] [address]- Encounter Diagnosis Vomiting(Final) - 02/11/23 Discharge Disposition: A-D/C Home Attending Physician: Pattie Harkins MD Admitting Physician: Bg Thorne MD Referring Physician: Not on Staff, Referring MD Allergies, Adverse Reactions, Alerts Substance Reaction Severity Status codeine n-v Active penicillin 1 anaphylaxis rash Active doxycycline n-v rash Active tetracycline [...] inactivated 2 10/03/06 Gi juanita SARS-CoV-2 mRNA (yxjlyxk-ujia-njkze) vax 02/25/22 Given SARS-CoV-2 mRNA (qoazgiv-efvd-mgkqb) vax 3 12/11/21 Given pneumococcal 13-valent vaccine [...] without difficulty, tolerated well 2Result Comment: lot #[id number] 10/03/06 3Early/Late Reason: Early/Late Reason: Med Not Available Medications Acetaminophen 0 Refills, Maintenance, 11/09/22 14:03:00 EST, Partial fill upon patient request if the prescription is for a schedule II opioid drug. Start Date: 11/09/22 Status: Ordered Carafate 1 gm oral tablet 1 Gm, 1, tablet, By Mouth, 3 times a day before meals and bedtime, # 56 tablet, Refills 0, Tot. Refills 0, Maintenance, 03/06/23 9:28:00 EDT, Route to Pharmacy Electronically, [facility], Partial fill upon patient request if the prescrip... Start Date: 03/06/23 Stop Date: 03/20/23 Status: Ordered dicyclomine 20 mg oral tablet 1 tablet = 20 mg, By Mouth, 2 times a day, # 60 tablet, 0 Refills, Maintenance, 11/06/21 11:49:00 EST, Tablet, [facility], Partial fill upon patient request if the prescription is for aschedule II opioid drug., 155, cm, 09/03/21 8:09:00... Start Date: 11/06/21 Status: Ordered digoxin 0.125 mg oral tablet 1, tablet, By Mouth, Daily, # 30 tablet, Refills 1, Route to Pharmacy Electronically, [id number], 156, cm, 03/01/22 4:19:00 EDT, Height, 55.2, [...] 0 Refills, Maintenance, 11/29/21 15:19:00 EST, Solution, [facility], Partial fill upon patient request [...] 13:59:00 EDT Start Date: 03/29/20 Status: Ordered MorPHINE Inj 2 mg, Injection, IV Push Slowly, Every 3 hours, PRN for Pain , Severe, Routine, 03/04/23 9:38:00 EDT Start Date: 03/04/23 Stop Date: 03/06/23 Status: Discontinued multivitamin with minerals Calcium and Magnesium oral tablet 1 tablet, By Mouth, Daily, # 30 tablet, 0 Refills, Maintenance, 03/01/22 9:50:00 EDT, Tablet, [facility] #[id number], Partial fill upon patient request if the prescription is for a schedule II opioid drug., 1 tablet By Mouth Daily,x30 days, 156, cm, 03/01... Start Date: 03/01/22 Stop Date: 03/31/22 Status: Ordered ondansetron 4 mg oral tablet, disintegrating = 4 mg, By Mouth, 2 times a day before breakfast and dinne, PRN Nausea & Vomiting, for 3 days, # 6 tablet, 0 Refills, Acute 03/09/23 9:28:00 EDT, 03/06/23 9:28:00 EDT, Tablet, [facility], Partial fill upon patient request if the prescrip... Start Date: 03/06/23 Stop Date: 03/09/23 Status: Ordered pantoprazole 40 mg oral delayed [...] 11/06/21 11:44:00 EST, Route to Pharmacy Electronically, [facility], Partial fill uponpatient request if the prescription is for a schedu... Start Date: 11/06/21 Status: Ordered Symbicort 80mcg/4.5mcg Inhaler 2, puffs, Inhalation, 2 times a day, # 1 each, Refills 0, Tot. Refills 0, Maintenance, 11/06/21 11:43:00 EST, Inhaler, Route to Pharmacy Electronically, [id number], [facility], 155, cm, 09/03/21 8:09:00 EST, Hei... Start Date: 11/06/21 Status: Ordered traZODone 50 mg oral tablet 50 mg, 1, tablet, By Mouth, Daily at bedtime, # 30 tablet, Refills 0, Tot. Refills 0, Maintenance, 11/06/21 11:44:00 EST, Route to Pharmacy Electronically, [facility], Partial fill uponpatient request if [...] Reports Name Date Urine Culture (URINE CULTURE) 02/11/23 Microbiology Reports TEST:Urine Culture STATUS:Auth (Verified) BODY SITE: SOURCE:URINE COLLECTED DATE/TIME:02/11/23 4:50 PM Urine Culture SPECIMEN DESCRIPTION : URINE SPECIAL REQUESTS : NONE CULTURE : >100,000 COL/ML ESCHERICHIA COLI This isolate was identified using Maldi-TOF system These AST results were performed on the [employer] ID and AST system REPORT STATUS : FINAL 02/13/2023 ORGANISM >100,000 COL/ML ESCHERICHIA COLI This isolate was identified using Maldi-TOF system These AST results were performed on the [employer] ID and AST system METHOD MIN. INHIB. CONC. (MCG/ML) AMPICILLIN SUSCEPTIBLE AMPICILLIN/SULBACTAM SUSCEPTIBLE AMOXICILLIN/CLAVULAN SUSCEPTIBLE CEFAZOLIN SUSCEPTIBLE CEFEPIME SUSCEPTIBLE CEFTRIAXONE SUSCEPTIBLE CIPROFLOXACIN SUSCEPTIBLE ERTAPENEM SUSCEPTIBLE GENTAMICIN SUSCEPTIBLE LEVOFLOXACIN SUSCEPTIBLE MEROPENEM SUSCEPTIBLE NITROFURANTOIN SUSCEPTIBLE PIPERACILLIN/TAZOBAC SUSCEPTIBLE TRIMETH/SULFAMETHOX SUSCEPTIBLE TETRACYCLINE SUSCEPTIBLE Radiology Reports * Exam Date Time Procedure Performing Provider Status 02/27/23 8:00 AM Chest Portable Chavo Castillo; Auth (Verified) Notes: (Chest Portable) Reason For Exam: Shortness of Breath RESULT: Chest Portable Chest Portable Reason: Shortness of Breath; Clinical Question(s): Pneumonia COMPARISON: Multiple priors, most recently 02/11/2023. FINDINGS: LINES AND TUBES: None. LUNGS AND PLEURA: Clear lungs. Normal pulmonary vascularity. Unchanged chronic mild elevation of the lateral right hemidiaphragm and blunted right costophrenic angle. No pleural effusion. No pneumothorax. HEART, MEDIASTINUM AND ALEXUS: Heart is normal in size. Normal mediastinal and hilar contour. BONES AND SOFT TISSUES: No acute abnormality. IMPRESSION: No acute abnormality. I have personally reviewed the images and I agree with this report. WSN: [id number] Ordering Physician: Cheryl Nickerson Dictated By: Bonnie Gordon DO Dictated Date/Time: 02/27/23 9:16 am Reviewed By: Ferny Martinez MD Signed By: Ferny Martinez MD Signed Date/Time: 02/27/23 9:21 am Transcribed By: MARIA Transcribed Date/Time: 02/27/23 9:14 am * Exam Date Time Procedure Performing Provider Status 02/25/23 11:53 AM US Doppler Ext Upper Venous Left Torey WalterYari; Auth (Verified) Notes: (US Doppler Ext Upper Venous Left) Reason For Exam: Pain/Tenderness Extremities RESULT: US Doppler Ext Upper Venous Left US Doppler Ext Upper Venous Left Reason: Pain Tenderness Extremities; Clinical Question(s): Thrombosis COMPARISON: None. IMAGING TECHNIQUE: Ultrasound examination of the upper extremity deep venous system was performed using grayscale, color, and spectral wave analysis including response to compression. Assessment includes the contralateral jugular and subclavian vein. FINDINGS: Internal jugular vein: Patent. No thrombosis. Subclavian vein: Patent. No thrombosis. Axillary vein: Patent. No thrombosis. Brachial vein: Patent. No thrombosis. Basilic vein: Patent. No thrombosis. Cephalic vein: Patent. No thrombosis. Contralateral internal jugular vein: Patent. No thrombosis. Contralateral subclavian vein: Patent. No thrombosis. IMPRESSION: No evidence of venous thrombosis. WSN: [id number] Ordering Physician: Rui Duffy Dictated By: Kaitlin Mike MD Dictated Date/Time: 02/25/23 11:55 a Reviewed By: Kaitlin Mike MD Signed By: Kaitlin Mike MD Signed Date/Time: 02/25/23 11:55 am Transcribed By: MARIA Transcribed Date/Time: 02/25/23 11:52 am * Exam Date Time Procedure Performing Provider Status 02/23/23 2:49 PM Esophagus Barium Swallow Juliana Beard ; Auth (Verified) Notes: (Esophagus Barium Swallow) Reason For Exam: Post prandial pain, inability to tolerate PO;Other: RESULT: Esophagus Barium Swallow PROCEDURE: Esophagus Barium Swallow CLINICAL INDICATION: Reason: Post prandial pain, inability to tolerate PO. History of esophageal strictures. COMPARISONS: 05/16/2022. FLUOROSCOPY TIME: 2 minutes 48 seconds EXPOSURE: 473.7 uGym2 TECHNIQUE: Barium contrast esophagram FINDINGS: Somewhat limited examination, patient is unable or unwilling to take large boluses of contrast. Esophagus remains somewhat under distended throughout the examination. Swallowing mechanism: Initial swallow demonstrates no laryngeal penetration or tracheal aspiration. Normal oral and pharyngeal phases. Esophagus: Limited evaluation due to lack of contrast distention. No evidence of mucosal irregularity or mass. Minimal gastroesophageal reflux with provocative maneuvers. 13mm barium tablet remains stomach at the GE junction. Additional sips of contrast and water did not result in progression of the tablet. Patient was unable to tolerate additional sips. Stomach and duodenum: Grossly normal. IMPRESSION: 1. Somewhat limited examination with findings consistent with a distal esophageal stricture with a 13 mm barium tablet remained stomach distally. 2. No evidence of complete esophageal obstruction. 3. Minimal gastroesophageal reflux with provocative maneuvers. I have personally reviewed the images and I agree with this report. WSN: [id number] Ordering Physician: Cheryl Nickerson Dictated By: Con Matamoros MD Dictated Date/Time: 02/23/23 4:32 pm Reviewed By: Dillon Gonsalez MD Signed By: Dillon Gonsalez MD Signed Date/Time: 02/23/23 4:37 pm Transcribed By: MARIA Transcribed Date/Time: 02/23/23 3:04 pm * Exam Date Time Procedure Performing Provider Status 02/22/23 12:[address] Abd/Pelvis W/ IV Contrast Only Cheryl Addison; Judy (Verified) Notes: (CT Abd/Pelvis W/ IV Contrast Only) Reason For Exam: Abdominal pain, inability to tolerate PO, history of colectomy/colostomy;Other: RESULT: CT Abd/Pelvis W/ IV Contrast Only CT Abd/Pelvis W/ IV Contrast Only INDICATION: Abdominal pain, inability to tolerate PO, history of colectomy colostomy; Clinical Question(s): Colitis TECHNIQUE: Spiral CT through the abdomen and pelvis with IV contrast formatted in 3 planes. 75 cc of Omnipaque 300 was administered intravenously. This study was performed without oral contrast. Weight-based protocol using automatic tube modulation was used to optimize exposure parameters. CTDIvol Body: 6.56 mGy, DLP Body: 336 mGy*cm. COMPARISON: 02/11/2023 FINDINGS: Hot Die Press Feeder View Findings, Lines and Tubes: None. Visualized Chest: Lung bases are clear. No pleural effusion. The heart is normal in size. No pericardial effusion. Diaphragm: Unchanged elevated right hemidiaphragm. Liver: Normal. Gallbladder: Absent consistent with prior cholecystectomy. Bile ducts: Unchanged dilated CBD without obstruction lesion seen, likely on the basis of previous cholecystectomy. Spleen: Normal. Pancreas: Normal. Adrenal glands: Normal. Kidneys and ureters: No hydronephrosis, stones, or suspicious masses. Small hypodensities that are too small to characterize are noted, requiring no dedicated follow up. Bladder: Mild wall thickening. Reproductive organs: The uterus is not seen and may be surgically absent. Stomach, small bowel, and large bowel: Status post partial colectomy with left lower quadrant colostomy. There is some liquid stool in the remaining colon but no colonic wall thickening or adjacent fat stranding. Few small bowel anastomoses, no evidence of small bowel obstruction. Mild fluid distention of the stomach. Appendix: Not seen, but no evidence of appendicitis. Peritoneum and retroperitoneum: No ascites or pneumoperitoneum. No omental or mesenteric lesions. Lymph nodes: No enlarged lymph nodes. Blood vessels: Mild vascular calcifications but no aneurysm. IVC filter in place. Abdominal and pelvic wall: Left lower quadrant colostomy. Rectus sheath diastases. Bones: No acute abnormality. IMPRESSION: 1. Liquid stool throughout the colon suggestive of a diarrheal illness. No colonic wall thickening or adjacent fat stranding to suggest colitis. 2. Mild bladder wall thickening may be due to cystitis. WSN: [id number] Ordering Physician: Cheryl Nickerson Dictated By: Jalen Rivera MD Dictated Date/Time: 02/22/23 12:34 p Reviewed By: Jalen Rivera MD Signed By: Jalen Rivera MD Signed Date/Time: 02/22/23 12:34 pm Transcribed By: MARIA Transcribed Date/Time: 02/22/23 12:28 pm * Exam Date Time Procedure Performing Provider Status 02/17/23 1:21 PM Abdomen AP Prema Valladares (Verified) Notes: (Abdomen AP) Reason For Exam: Hernia and no ostomy output, ?obstruction;Other: RESULT: XR Abdomen AP Supine view of the abdomen and pelvis dated January 20172022. Comparison films are from October 19, 2012. HISTORY: No ostomy output. FINDINGS: This examination shows a nonobstructed bowel gas pattern. There is an ostomy in the left lower quadrant. Surgical clips are noted. There is evidence of a prior left-sided hernia repair. There is evidence of surgical damion consistent with bowel anastomosis. An IVC filter is present with its tip at the L2 level. There is a mild convex left thoracolumbar scoliosis with associated degenerative changes. IMPRESSION: No evidence of bowel obstruction. Postoperative changes. Examination 14[address]. Thank you for allowing me to participate in the care of this patient. WSN: [id number] Ordering Physician: Christiano Mata Dictated By: Nikos Thibodeaux MD Dictated Date/Time: 02/17/23 1:26 pm Reviewed By: Nikos Thibodeaux MD Signed By: Nikos Thibodeaux MD Signed Date/Time: 02/17/23 1:26 pm Transcribed By: MARIA Transcribed Date/Time: 02/17/23 1:25 pm * Exam Date Time Procedure Performing Provider Status 02/17/23 8:55 AM US Doppler Ext Lower Venous Right Juliana Pimentel; Auth (Verified) Notes: (US Doppler Ext Lower Venous Right) Reason For Exam: R leg swelling hx DVT;Swelling Extremities RESULT: US Doppler Ext Lower Venous Right US Doppler Ext Lower Venous Right Refer to EMR; Reason: Swelling Extremities; R leg swelling hx DVT; Clinical Question(s): Thrombus; COMPARISON: 02/13/2023 IMAGING TECHNIQUE: Ultrasound of the veins from the groin through the calf was performed using grayscale, color, and spectral Doppler ultrasound assessing for complete compressibility and normal flowcharacteristics. FINDINGS: Common femoral vein: Patent. No thrombosis. Femoral vein: Patent. No thrombosis. Popliteal vein: Patent. No thrombosis. Gastrocnemius veins: The visualized portions are patent without evidence of thrombosis. Peroneal veins: The visualized portions are patent without evidence of thrombosis. Posterior tibial veins: The visualized portions are patent without evidence of thrombosis. Contralateral common femoral vein: Patent. No thrombosis. OTHER FINDINGS: None. IMPRESSION: No evidence of deep venous thrombosis. WSN: [id number] Ordering Physician: Christiano Mata Dictated By: Lv Senior MD Dictated Date/Time: 02/17/23 9:03 am Reviewed By: Lv Senior MD Signed By: Lv Senior MD Signed Date/Time: 02/17/23 9:03 am Transcribed By: MARIA Transcribed Date/Time: 02/17/23 8:53 am * Exam Date Time Procedure Performing Provider Status 02/13/23 9:18 PM US Doppler Ext Lower Venous Bilat Angela Gramajo; Auth (Verified) Notes: (US Doppler Ext Lower Venous Bilat) Reason For Exam: Pain/Tenderness Extremities RESULT: US Doppler Ext Lower Venous Bilat US Doppler Ext Lower Venous Bilat Reason: Pain Tenderness Extremities; Clinical Question(s): Thrombosis; Order Comment: 02 13 2023 18:42:29 EDT- Pt is hooked up to EEG machine and unable to be disconnected, please check back tomorrow -MG COMPARISON: None IMAGING TECHNIQUE: Streamlined portable ultrasound of the lower extremity deep venous system was performed using grayscale, color, and spectral Doppler ultrasound from the common femoral through the popliteal vein assessing for complete compressibility and good response to compression and augmentation. The calf veins are not assessed. FINDINGS: RIGHT LOWER EXTREMITY: Common femoral vein: Patent. No thrombosis. Femoral vein: Patent. No thrombosis. Popliteal vein: Patent. No thrombosis. LEFT LOWER EXTREMITY: Common femoral vein: Patent. No thrombosis. Femoral vein: Patent. No thrombosis. Popliteal vein: Patent. No thrombosis. OTHER FINDINGS: IMPRESSION: No evidence of deep venous thrombosis from the groin through the popliteal vein. Calf veins not assessed with portable technique. WSN: [id number] Ordering Physician: Nat Allison Dictated By: Jalen Oconnell MD Dictated Date/Time: 02/13/23 9:54 pm Reviewed By: Jalen Oconnell MD Signed By: Jalen Oconnell MD Signed Date/Time: 02/13/23 9:54 pm Transcribed By: MARIA Transcribed Date/Time: 02/13/23 9:54 pm * Exam Date Time Procedure Performing Provider Status 02/11/23 4:[address] Abd/Pelvis W/ IV Contrast Only Alicia Longo; Auth (Verified) Notes: (CT Abd/Pelvis W/ IV Contrast Only) Reason For Exam: Pain RESULT: CT Abd/Pelvis W/ IV Contrast Only CT Abd/Pelvis W/ IV Contrast Only HX OF PRESENT ILLNESS: seizure; Reason: Pain; Clinical Question(s): Obstruction; TECHNIQUE: Spiral CT through the abdomen and pelvis with IV contrast formatted in 3 planes. 75 cc of Omnipaque 300 was administered intravenously. This study was performed without oral contrast. Weight-based protocol using automatic tube modulation was used to optimize exposure parameters. CTDIvol Body: 10.70 mGy, DLP Body: 559 mGy*cm. COMPARISON: CT abdomen and pelvis from 08/19/2022 and MR abdomen from 08/20/2022. FINDINGS: Hot Die Press Feeder View Findings, Lines and Tubes: None. Visualized Chest: No focal consolidation. Mild bibasal atelectasis. No pleural effusion. The heart is normal in size. No pericardial effusion. Diaphragm: Normal. Liver: Normal attenuation. There is mild pneumobilia in the left hepatic lobe. Gallbladder: Absent consistent with prior cholecystectomy. Bile ducts: No intrahepatic biliary ductal dilation. Dilated common bile duct measuring up to 1.4 cm proximal, which tapers down to a 0.6 cm distally, secondary to postcholecystectomy status. There is a small amount of gas within the proximal common bile duct (series 201; image 45). Spleen: Normal. Pancreas: Normal. Mild prominence of the pancreatic duct. Adrenal glands: Normal. Kidneys and ureters: No hydronephrosis, stones, or suspicious masses. Small hypodensities that are too small to characterize are noted, requiring no dedicated follow up. Bladder: Distended urinary bladder with mild circumferential wall thickening. Reproductive organs: Unremarkable. Stomach, small bowel, and large bowel: Normal caliber stomach. Small gas locules likely within the lumen rather than the duodenal alanis (series 201; image 66). Status post left lower quadrant colostomy with surgical sutures within the left lower quadrant and midabdomen. No evidence of bowel obstruction. Appendix: Not seen, but no evidence of appendicitis. Peritoneum and retroperitoneum: No ascites or pneumoperitoneum. No omental or mesenteric lesions. Lymph nodes: No enlarged lymph nodes. Blood vessels: Mild vascular calcifications but no aneurysm. Incidentally seen is a circumaortic left renal vein. No evidence of venous thrombosis. IVC filter in place. Abdominal and pelvic wall: Postsurgical changes in the anterior abdominal wall with a hernia mesh. Bones: No acute abnormality. IMPRESSION: 1. Interval development of pneumobilia with small amount of air visualized in the proximal common bile duct. This may be related to previous instrumentation. 2. No evidence of bowel obstruction or definite acute bowel abnormality. 3. Distal urinary bladder with mild circumferential wall thickening. Correlation with urinalysis issuggested to rule out cystitis. I have personally reviewed the images and I agree with this report. WSN: [id number] Ordering Physician: Omid Garcia Dictated By: Anali Red MD Dictated Date/Time: 02/11/23 5:19 pm Reviewed By: Adriel Hdz MD Signed By: Adriel Hdz MD Signed Date/Time: 02/11/23 5:24 pm Transcribed By: MARIA Transcribed Date/Time: 02/11/23 5:05 pm * Exam Date Time Procedure Performing Provider Status 02/11/23 3:49 PM Chest 2 Views Frontal and Lat Marija Graham; Auth (Verified) Notes: (Chest 2 Views Frontal and Lat) Reason For Exam: Pleuritic Pain RESULT: Chest 2 Views Frontal and Lat Chest 2 Views Frontal and Lat Hx of Present Illness: seizure; Reason: Pleuritic Pain; Clinical Question(s): Pneumonia COMPARISON: 05/30/2022.] FINDINGS: LINES AND TUBES: None. LUNGS AND PLEURA: Clear lungs. Normal pulmonary vascularity. No pleural effusion. Chronic blunting of the right costophrenic angle is sharp No pneumothorax. HEART, MEDIASTINUM AND ALEXUS: Heart is normal in size. Normal mediastinal and hilar contour. BONES AND SOFT TISSUES: No acute abnormality. IVC filter in place. IMPRESSION: No acute abnormality. WSN: [id number] Ordering Physician: Omid Garcia Dictated By: Reese Reynolds MD Dictated Date/Time: 02/11/23 3:56 pm Reviewed By: Reese Reynolds MD Signed By: Reese Reynolds MD Signed Date/Time: 02/11/23 3:56 pm Transcribed By: MARIA Transcribed Date/Time: 02/11/23 3:53 pm Vital Signs Most recent to oldest [Reference Range]: 1 2 3 Height 160 cm (03/05/23 4:14 PM) 160 cm (03/04/23 6:45 AM) 160 cm (03/03/23 11:02 PM) Weight 50.3 kg (03/05/23 4:14 PM) 50.3 kg (02/18/23 7:00 PM) 51 kg (02/12/23 9:24 AM) Oxygen Saturation [94-100 %] 98 % (03/06/23 8:05 AM) 98 % (03/06/23 3:00 AM) 96 % (03/05/23 11:00 PM) Pulse Rate [55-90 bpm] 69 bpm (03/06/23 8:05 AM) 73 bpm (03/06/23 3:00 AM) 80 bpm (03/05/23 11:00 PM) Body Mass Index [18.5-24.99 kg/m2] 19.65 kg/m2 (03/05/23 4:14 PM) 19.92 kg/m2 (02/12/23 9:24 AM) Blood Pressure [90-138/55-84 mm Hg] 106/63mm Hg (03/06/23 8:05 AM) 127/69mm Hg (03/06/23 3:00 AM) 100/50mm Hg (03/05/23 11:00 PM) Respiratory Rate [16-30 br/min] 20 br/min (03/06/23 3:26 AM) 18 br/min (03/05/23 9:26 PM) 18 br/min (03/05/23 8:00 PM) Temperature [96.8-100.4 DegF] 98.3 DegF (03/06/23 8:05 AM) 97.9 DegF (03/06/23 3:00 AM) 98 DegF (03/05/23 11:00 PM) Liters per Minute 18 L/min (02/19/23 8:45 PM) 2 L/min (02/16/23 8:04 AM) 2 L/min (02/16/23 3:00 AM) Mode of Delivery (Oxygen) Room air (03/06/23 8:05 AM) Room air (03/06/23 3:00 AM) Room air (03/05/23 11:00 PM) Blood pressure sites Arm, right (03/06/23 8:05 AM) Arm, right (03/06/23 3:00 AM) Arm, right (03/05/23 11:00 PM) Temperature Route Oral (03/06/23 8:05 AM) Oral (03/06/23 3:00 AM) Oral (03/05/23 11:00 PM) Dry Weight 51 kg (02/12/23 9:24 AM) Weight Obtained Via Bed scale (02/12/23 9:24 AM) Social History Social History Type Response Smoking Status Never (less than 100 in lifetime);Never entered on: 02/24/22 Sex Endoscopy study * Event Display: [facility] EGD Please click on pdf link to open report Admission evaluation note * Abbey PAUL, Yany Das: MODIFY, MODIFY, MODIFY, PERFORM Event Display: Admission Note Authored Date: Patient: ??JUJU BERNARD ? Age:??67 Years?Sex:??Female?:??[id number]?? Chief Complaint/Reason for Consultation seizure History of Present Illness 67-year-old female with PMH of atrial fibrillation, supraventricular tachycardia, pulmonary embolism on qu, history of colon cancer s/p resection with colostomy, neurogenic bladder with self-catheterization, conversion disorder, pseudoseizures on Kera was brought to the ED after having seizures x2 yesterday. ?? Patient medical chart reviewed, seen and examined at bedside.?? Patient very lethargic by the time of my evaluation after receiving multiple rounds of lorazepam and fentanyl??and not able to obtain any history from her.?? History obtained from chart review and collaterals.?? As per the chart reviewpatient came with multiple complaints, nausea and multiple vomitings, increased colostomy output decreased p.o. intake, recently diagnosed with UTI on Sunday at [facility] did not have any beds available so sent home with p.o. antibiotics which she did not started as concerned with history of severe allergic reactions in the past with antibiotics.?? Not able to take for few days due to nausea and vomiting she denies any fevers, chills sore throat, runny nose. ?? Initially in the ED patient reminds afebrile, HR 80, RR 16, BP 88/54 which responded to fluids, saturation 98% on 3 L of nasal cannula.?? No leukocytosis WBC of 6.7, Hgb 12.8, PLT 374, electrolytes are normal, BUN/creatinine 11/0.5, blood glucose 108, calcium of 8, magnesium of 1.8, lactate of 1.9, troponins x2 negative, digoxin level is low less than 0.4, urinalysis with positive nitrates, 3+leukocyte esterase, more than 182 WBC, 28 RBC and moderate bacteria.?? Chest x-ray with no acute findings.?? CT abdomen and pelvis with interval development of pneumobilia with small amount of air inthe proximal common bile duct likely due to previous instrumentation.?? Mild circumferential bladder wall thickening concerning for cystitis.?? As per the ED note patient has 2 episodes of seizures in the ED which responded after Ativan 2 mg x 3 doses.?? Patient also received Zofran, fentanyl x2 and Keppra IV x2 in the ED.?? Patient will be admitted to inpatient medicine service for further management. Review of Systems Limited as in HPI as patient is very lethargic Objective ? Vital Signs?? Temperature: 97.8 DegF (02/12/23 00:18:00) Temperature Route: Oral (02/12/23 00:18:00) Pulse Rate: 72 bpm (02/12/23 02:15:00) Respiratory Rate: 16 br/min (02/12/23 02:15:00) Vented: No (02/12/23 02:15:00) Systolic Blood Pressure: 93 mm Hg (02/12/23 02:15:00) Diastolic Blood Pressure: 64 mm Hg (02/12/23 02:15:00) Pulse Pressure: 29 mm Hg (02/12/23 02:15:00) Oxygen Saturation: 96 % (02/12/23 02:15:00) Liters per Minute: 2 L/min (02/12/23 02:15:00) Mode of Delivery (Oxygen): Nasal cannula (02/12/23 02:15:00) Early Warning Score: 6 (02/12/23 02:17:21) ? Pain Scores 1 - 10 Pain Scale Score: 10 (11:50) ? Intake/Output? No Data Available ?? Precautions Seizure Precautions ? Physical Exam ?? Gen- not in acute distress??very lethargic,??responds to few questions and dozes back to sleep HEENT- Normocephalic, Atraumatic,No pallor, icterus Neck-supple, no JVD. Heart-S1S2(+),??regular, no murmur lungs- Clear, b/l air entry, no wheezing Abdomen-soft, nontender,nondistended,??bowel sounds present. Extremities-pulses palpable??2+.?? No calf tenderness. Neurological-able to move all her extremities 3 difficulty, not able to completely assess neuro exam. ? (02/11/2023 15:49 EDT Chest 2 Views Frontal and Lat) IMPRESSION: ?? No acute abnormality. ?? (02/11/2023 16:[address] Abd/Pelvis W/ IV Contrast Only) MPRESSION:? 1. ??Interval development of pneumobilia with small amount of air visualized in the proximal commonbile duct. This may be related to previous instrumentation. 2. ??No evidence of bowel obstruction or definite acute bowel abnormality. 3. ??Distal urinary bladder with mild circumferential wall thickening. Correlation with urinalysis is suggested to rule out cystitis. Assessment/Plan 67-year-old female with PMH of atrial fibrillation, supraventricular tachycardia, pulmonary embolism on Eliquis, history of colon cancer s/p resection with colostomy, neurogenic bladder with self-catheterization, conversion disorder, pseudoseizures on Keppra was brought to the ED after having seizures x2 yesterday. Initially in the ED patient reminds afebrile, HR 80, RR 16, BP 88/54 which responded to fluids, saturation 98% on 3 L of nasal cannula.?? No leukocytosis WBC of 6.7, Hgb 12.8, PLT 374, electrolytes are normal, BUN/creatinine 11/0.5, blood glucose 108, calcium of 8, magnesium of 1.8, lactate of 1.9, troponins x2 negative, digoxin level is low less than 0.4, urinalysis with positive nitrates, 3+ leukocyte esterase, more than 182 WBC, 28 RBC and moderate bacteria.?? Chest x-ray with no acute findings.?? CT abdomen and pelvis with interval development of pneumobilia with small amount of air in the proximal common bile duct likely due to previous instrumentation.?? Mild circumferential bladder wall thickening concerning for cystitis.?? As per the ED note patient has 2 episodesof seizures in the ED which responded after Ativan 2 mg x 3 doses.?? Patient also received Zofran, fentanyl x2 and Keppra IV x2 in the ED.?? Patient will be admitted to inpatient medicine service forfurther management. ?? Urinary tract infection/cystitis Vitals as per unit standards IV fluids Ceftriaxone,??patient received in the past without any allergic reaction???history of allergic reactions to multiple medications/antibiotics Follow-up with urine cultures and adjust antibiotics Daily trend fever and WBC count Bladder scan if needed I's and O's Daily trend electrolytes and replete if needed ?? Breakthrough seizures???in the setting of infection History of pseudoseizures Conversion disorder S/p lorazepam??2 mg IV x3??for seizures overnight We will continue with Keppra 750 mg twice daily Lorazepam 2 mg IV push as needed for seizure activities Seizure precautions Neurochecks every 4 hours Telemetry monitoring IV hydration Ropinirole??1 mg daily at bedtime ?? Atrial fibrillation Supraventricular tachycardia History of pulmonary embolism We will continue with digoxin??0.125 mg??daily Eliquis 5 mg twice daily ?? Nausea/vomiting/diarrhea???IV fluids, Zofran as needed, daily electrolytes and replete if needed. Hypothyroidism -levothyroxine 50 mcg daily GERD???pantoprazole 40 mg daily HLD???simvastatin 40 mg daily Insomnia???trazodone??50 mg daily Conversion disorder/PTSD???duloxetine 60 mg daily ? Code???full,??confirmed with patient Diet???cardiac diet DVT prophylaxis???already on Eliquis VTE prophylaxis??done ?? Patient seen and examined on 02/11/2023 Histories Allergies Allergies ?(Active and Proposed Allergies Only) penicillin? (Severity: Unknown severity, Onset: Unknown) ?Reactions: rash, anaphylaxis ?Comments: tolarates cefepime, ceftriaxone 07/2022 Glutens? (Severity: Unknown severity, Onset: Unknown) ?Reactions: [...] Unknown severity, Onset: Unknown) ?Reactions: rash, n-v ? Past Medical History/Problem List Active Problems??(17) Abdominal pain Chronic back pain Conversion disorder DIABETES MELLITUS [...] aerosol with adapter)?1?puff(s)?Inhalation?Every 6 hours?as needed?for wheezing apixaban (Eliquis 5 mg oral tablet)?TAKE ONE (1) TABLET BY MOUTH TWICE DAILY Budesonide-Formoterol (Symbicort 80mcg/4.5mcg Inhaler)?2?puff(s)?Inhalation?2 times a day Dicyclomine (dicyclomine 20 mg oral tablet)?1?tab(s)?20?Milligram?By Mouth?2 [...] Calcium and Magnesium oral tablet)?1?tab(s)?By Mouth?Daily?for 30?Days Pantoprazole (Protonix 40 mg oral delayed release tablet)?40?Milligram?By Mouth?Daily Ropinirole (rOPINIRole 1 mg oral tablet)?1?tab(s)?1?Milligram?By Mouth?Daily at bedtime Simvastatin (simvastatin 40 mg oral tablet)?40?Milligram?1?tablet?By Mouth?Daily at bedtime Trazodone (traZODone 50 mg oral tablet)?50?Milligram?1?tablet?By Mouth?Daily at bedtime ? Inpatient Medications Medications (21) Active SCHEDULED: (10) Apixaban 5 mg Tablet (apixaban 5 mg oral tablet) ??5 mg, By Mouth, 2 times a day Ceftriaxone (Ceftriaxone Inj) ??1 Gm, IVPB, Every 24 hours Digoxin 0.125 mg Tablet (digoxin 0.125 mg oral tablet) ??125 mcg, By Mouth, Daily Duloxetine 60 mg Capsule (DULoxetine Capsule) ??60 mg, By Mouth, Daily Levetiracetam 250 mg Tablet (levETIRAcetam 750 mg oral tablet) ??750 mg, By Mouth, 2 times a day Levothyroxine 25 mcg Tablet (levothyroxine 0.025 mg oral tablet) ??50 mcg, By Mouth, Daily Multivitamin Therapeutic / Minerals Tablet (Multivit Therapeutic/Minerals Tablet) ??1 tablet, By Mouth, Daily NaCl 0.9% Flush 3ml (NaCL 0.9% Flush) ??3 mL, IV Push, Every 8 hours Ropinirole 1 mg Tablet (rOPINIRole 1 mg oral tablet) ??1 mg, By Mouth, Daily at bedtime Simvastatin 20 mg Tablet (simvastatin 20 mg oral tablet) ??40 mg, By Mouth, Daily at bedtime CONTINUOUS: (1) NaCL 0.9% (1000 mL) Cont IV 1,000 mL (0.9% NaCL 1,000 mL) ??1,000 mL, IV Infusion, 75 mL/hr PRN: (10) Acetaminophen 325 mg Tablet (Acetaminophen Tablet) ??650 mg, By Mouth, Every 4 hours Albuterol 90mcg/Inhalation Inhaler HFA (albuterol CFC free 90 mcg/inh inhalation aerosol) ??90 mcg 1 puffs, Inhalation, Every 4 hours Dextromethorphan-Guaifenesin 20 mg-200 mg/10 mL Liqu UD (Robitussin DM Liquid) ??10 mL, By Mouth, Every 4 hours Lorazepam 2 mg Inj Syringe (LORazepam Inj) ??2 mg, IV Push Slowly, Every 6 hours Melatonin 3 mg Tablet (Melatonin Tablet) ??3 mg, By Mouth, Daily at bedtime NaCl 0.9% Flush 3ml (NaCL 0.9% Flush) ??3 mL, IV Push, Every 8 hours Ondansetron 2mg/mL Inj (2mL Vial) (Ondansetron Inj) ??4 mg, IV Push Slowly, Every 30 minutes Polyethylene Glycol 17 Gm Powder (MiraLax Powder) ??17 Gm 1 pack/packet, By Mouth, Daily Senna 8.6 mg / Docusate 50 mg tablet (Docusate/Senna Tablet) ??1 tablet, By Mouth, 2 times a day Simethicone 80 mg Chewable Tablet (Simethicone Tablet) ??80 mg, Chew, 3 times a day ? Results Recent Labs BLOOD COUNT & DIFF WBC 6.7 k/mm3 ()?? 02/11/2023 12:36 RBC 4.16 m/mm3 (Low)?? 02/11/2023 12:36 Hgb 12.8 Gm/dL ()?? 02/11/2023 12:36 Hct 39.5 % ()?? 02/11/2023 12:36 MCV 95.0 femtoliters ()?? 02/11/2023 12:36 MCH 30.8 pg ()?? 02/11/2023 12:36 MCHC 32.4 g/dL (Low)?? 02/11/2023 12:36 Platelet Count 374 k/mm3 ()?? 02/11/2023 12:36 RDW-SD 47.3 femtoliters (High)?? 02/11/2023 12:36 MPV 9.4 femtoliters ()?? 02/11/2023 12:36 Nucleated RBC (Automated) 0.0 #/100 WBC'S ()?? 02/11/2023 12:36 Abs. NRBC 0.0 k/mm3 ()?? 02/11/2023 12:36 Abs. Neut 4.4 k/mm3 ()?? 02/11/2023 12:36 Abs. Lymph 1.7 k/mm3 ()?? 02/11/2023 12:36 Abs. [place] 0.4 k/mm3 ()?? 02/11/2023 12:36 Abs. Eo 0.1 k/mm3 ()?? 02/11/2023 12:36 Abs. Baso 0.1 k/mm3 ()?? 02/11/2023 12:36 Neut % 66.0 % ()?? 02/11/2023 12:36 Lymph % 25.3 % ()?? 02/11/2023 12:36 [place] % 6.6 % ()?? 02/11/2023 12:36 Eos % 1.0 % ()?? 02/11/2023 12:36 Baso % 0.7 % ()?? 02/11/2023 12:36 Imm Gran 0.4 % ()?? 02/11/2023 12:36 Abs. Imm Gran 0.0 k/mm3 ()?? 02/11/2023 12:36 ?? CARDIAC Nt-Probnp 174 pg/mL (High)?? 02/11/2023 12:36 High Sensitivity Troponin (HSTnT) 9 ng/L ()?? 02/11/2023 17:08 ?? CHEM GENERAL Sodium 146 mmol/L (High)?? 02/11/2023 12:36 Potassium 4.0 mmol/L ()?? 02/11/2023 12:36 Chloride 110 mmol/L (High)?? 02/11/2023 12:36 Bicarbonate Level 25 mmol/L ()?? 02/11/2023 12:36 Anion Gap 11 ()?? 02/11/2023 12:36 Glucose Level 108 mg/dL (High)?? 02/11/2023 12:36 Glucose, POC 76 mg/dL ()?? 02/11/2023 15:20 BUN 11 mg/dL ()?? 02/11/2023 12:36 Creatinine-Blood 0.5 mg/dL ()?? 02/11/2023 12:36 Estimated GFR Creatinine 102 ML/MIN/1.73 M2 ()?? 02/11/2023 12:36 Calcium 8.0 mg/dL (Low)?? 02/11/2023 17:08 Magnesium 1.8 mg/dL ()?? 02/11/2023 17:08 Alkaline Phosphatase 89 units/L ()?? 02/11/2023 12:36 Lipase 23 units/L ()?? 02/11/2023 12:36 AST (SGOT) 24 units/L ()?? 02/11/2023 12:36 ALT (SGPT) 28 units/L ()?? 02/11/2023 12:36 Bilirubin, Total 0.3 mg/dL ()?? 02/11/2023 12:36 Lactate 1.9 mmol/L ()?? 02/11/2023 12:36 ?? COAG INR 1.0 ()?? 02/11/2023 12:36 Protime (PT) 10.3 seconds ()?? 02/11/2023 12:36 ?? HEME OTHER Hold Lavender Top SPECIMEN DISCARDED AFTER 24 HOURS. ()?? 02/11/2023 17:08 ?? TOXICOLOGY/TDM Ethanol, Serum or Plasma NONE DETECTED mg/dL ()?? 02/11/2023 12:36 Digoxin Level <0.4 ng/mL (Low)?? 02/11/2023 17:08 ?? UA/URINALYSIS Appear/Color, Urine YELLOW ()?? 02/11/2023 16:50 Specific [place], Urine 1.012 ()?? 02/11/2023 16:50 pH, Urine 6.0 ()?? 02/11/2023 16:50 Albumin, Urine 1+ (Abnormal)?? 02/11/2023 16:50 Glucose, Urine NEGATIVE ()?? 02/11/2023 16:50 Ketones, Urine NEGATIVE ()?? 02/11/2023 16:50 Bilirubin, Urine NEGATIVE ()?? 02/11/2023 16:50 Hemoglobin, Urine TRACE (Abnormal)?? 02/11/2023 16:50 Nitrite, Urine POSITIVE (Abnormal)?? 02/11/2023 16:50 Leukocyte, Urine 3+ (Abnormal)?? 02/11/2023 16:50 Urobilinogen NORMAL mg/dL ()?? 02/11/2023 16:50 WBC's, Urine >182 /HPF (High)?? 02/11/2023 16:50 RBC's, Urine 28 /HPF (High)?? 02/11/2023 16:50 Bacteria MODERATE HPF (Abnormal)?? 02/11/2023 16:50 Squamous Epith 1 /HPF ()?? 02/11/2023 16:50 Mucus SLIGHT /LPF ()?? 02/11/2023 16:50 Budding Yeast MODERATE /HPF ()?? 02/11/2023 16:50 Hold Urine Culture Testing available 48 hours from time of collection. ()?? 02/11/2023 16:50 ?? VIROLOGY COVID-19 by RT-PCR NEGATIVE ()?? 02/11/2023 21:19 ? Urinalysis Albumin, Urine: 1+ Abnormal (16:50) Appear/Color, Urine: YELLOW (16:50) Bacteria: MODERATE Abnormal (16:50) Bilirubin, Urine: NEGATIVE (16:50) Budding Yeast: MODERATE (16:50) Glucose, Urine: NEGATIVE (16:50) Hemoglobin, Urine: TRACE Abnormal (16:50) Hold Urine Culture: Testing available 48 hours from time of collection. (16:50) Ketones, Urine: NEGATIVE (16:50) Leukocyte, Urine: 3+ Abnormal (16:50) Mucus: SLIGHT (16:50) Nitrite, Urine: POSITIVE Abnormal (16:50) pH, Urine: 6 (16:50) RBC's, Urine:??28 /HPF??High (16:50) Specific [place], Urine: 1.012 (16:50) Squamous Epith: 1 /HPF (16:50) Urobilinogen: NORMAL (16:50) WBC's, Urine:??>182??High (16:50) ?? Microbiology ?? COVID-19 (Novel Coronavirus), Rapid PCR?? Completed?? Source: Nasal Body Site: Nose Collected Dt/Tm: 02/11/2023 19:52 Last Updated Dt/Tm: 02/11/2023 22:02 ? Cardiology Labs Nt-Probnp:??174 pg/mL??High (02/11/23 12:36:00) High Sensitivity Troponin (HSTnT): 9 ng/L (02/11/23 17:08:00) High Sensitivity Troponin (HSTnT): 8 ng/L (02/11/23 12:36:00) ? [1]??CT Abd/Pelvis W/ IV Contrast Only; Adriel Hdz MD 02/11/2023 16:18 EDT EKG study * Event Display: EKG Authored Date: Cardiology * Event Display: Cardiac Rhythm Strips Authored Date: Hospital Progress note * Brenna Loja RN: PERFORM, SIGN, VERIFY Event Display: Progress Note Hospital Authored Date: [id number] Patient: JUJU BERNARD Age: 67 years Sex: Female : 1955 Associated Diagnoses: None Author: Freedom SANTOS, Brenna Cruz Evaluation Assued care of pt around 0700. Pt A&Ox4. VSS. pt with complaints of abd pain, PRN pain meds given. Pt Resting comfortably in bed for most of the day. Ambulating with assistance. Pt self cathing bladder, and self caring for colostomy. Pt down for EGD nd back with complaints of throat pain, pt refusing PRN pain meds, requesting morphine but morphine not due. Fall and safety precautions maintained. . * Torin PAUL, Pattie Leong: PERFORM Event Display: Progress Note Hospital Authored Date: [id number] Patient: ??JUJU BERNARD ? Age:??67 Years?Sex:??Female?:??1955?? Subjective ? -No acute overnight events -Awaiting EGD, plan for discharge home after EGD -Last on schedule for EGD due to COVID-positive ?? Review of Systems Other than those positives as noted above, the remaining comprehensive 14-point review of systems is negative. Objective Vital Signs?? Temperature: 98.3 DegF (03/05/23 11:00:00) Temperature Route: Oral (03/05/23 11:00:00) Pulse Rate: 69 bpm (03/05/23 11:00:00) Respiratory Rate: 18 br/min (03/05/23 11:00:00) Systolic Blood Pressure: 119 mm Hg (03/05/23 11:00:00) Diastolic Blood Pressure: 82 mm Hg (03/05/23 11:00:00) Blood pressure sites: Arm, right (03/05/23 11:00:00) Pulse Pressure: 37 mm Hg (03/05/23 11:00:00) Oxygen Saturation: 97 % (03/05/23 11:00:00) Mode of Delivery (Oxygen): Room air (03/05/23 11:00:00) Early Warning Score: 3 (03/05/23 11:29:30) ? Intake/Output? 02/11 19:59 03/05 07:00 03/04 07:00 03/03 07:00 03/02 07:00 ?? 03/05 14:57 03/05 14:57 03/05 06:59 03/04 06:59 03/03 06:59 Intake ?24820.0 ?0 ? 3375 ? 1700 ? 2640 Output ?67109 ?0 ? 2300 ?800 ? 2551 Net Total ?-2434.0 ?0 ? 1075 ?900 ? 89 ? Urine Count ? 42 ?0 ?3 ?1 ?2 ? Physical Exam Constitutional:??Older female resting comfortably in bed, tearful, cooperative, no apparent??CV or respiratory distress Head:??Atraumatic, normocephalic ENT:??PERRL, moist mucous membranes Neck:??Supple, no tenderness Cardiovascular:??S1 S2, RRR, no murmur Pulm:??Clear to auscultation bilaterally with good air entry throughout, no wheezes, rhonchi, rales. ??No use of accessory muscles Abdominal:??Bowel sounds x4 quadrants, soft, NT, ND, no guarding, colostomy bag in place Extremities:??No edema??or tenderness??bilateral lower extremities Neuro:??Alert and oriented x3, moves all extremities spontaneously and independently Skin: Warm/dry, intact Psych:??irritated _ Home Medications Albuterol (ProAir HFA 90 mcg/inh inhalation aerosol with adapter)?1?puff(s)?Inhalation?Every 6 hours?as needed?for wheezing apixaban (Eliquis 5 mg oral tablet)?TAKE ONE (1) TABLET BY MOUTH TWICE DAILY Budesonide-Formoterol (Symbicort 80mcg/4.5mcg Inhaler)?2?puff(s)?Inhalation?2 times a day Dicyclomine (dicyclomine 20 mg oral tablet)?1?tab(s)?20?Milligram?By Mouth?2 [...] Calcium and Magnesium oral tablet)?1?tab(s)?By Mouth?Daily?for 30?Days Pantoprazole (Protonix 40 mg oral delayed release tablet)?40?Milligram?By Mouth?Daily Ropinirole (rOPINIRole 1 mg oral tablet)?1?tab(s)?1?Milligram?By Mouth?Daily at bedtime Simvastatin (simvastatin 40 mg oral tablet)?40?Milligram?1?tablet?By Mouth?Daily at bedtime Trazodone (traZODone 50 mg oral tablet)?50?Milligram?1?tablet?By Mouth?Daily at bedtime ? Inpatient Medications Medications (25) Active SCHEDULED: (14) Digoxin 0.125 mg Tablet (digoxin 0.125 mg oral tablet) ??125 mcg, By Mouth, Daily Duloxetine 60 mg Capsule (DULoxetine Capsule) ??60 mg, By Mouth, Daily Hydrocortisone 1% Cream (HydroCORTisone ??1% Topical) ??1 application, Topically, 3 times a day Levetiracetam 250 mg Tablet (levETIRAcetam 250 mg oral tablet) ??750 mg, By Mouth, 2 times a day Levothyroxine 25 mcg Tablet (levothyroxine 0.025 mg oral tablet) ??50 mcg, By Mouth, Daily Meclizine 12.5 mg Tablet (meclizine 12.5 mg oral tablet) ??12.5 mg, By Mouth, 3 times a day Multivitamin Therapeutic / Minerals Tablet (Multivit Therapeutic/Minerals Tablet) ??1 tablet, By Mouth, Daily NaCl 0.9% Flush 3ml (NaCL 0.9% Flush) ??3 mL, IV Push, Every 8 hours Ondansetron 4 mg ODT (Zofran ODT 4 mg oral tablet, disintegrating) ??4 mg, By Mouth, 2 times a day before breakfast and dinne Ropinirole 1 mg Tablet (rOPINIRole 1 mg oral tablet) ??1 mg, By Mouth, Daily at bedtime Senna Tablet (Senna 8.6 mg oral tablet) ??8.6 mg 1 tablet, By Mouth, Daily Simethicone 80 mg Chewable Tablet (Simethicone Tablet) ??80 mg, Chew, 3 times a day Simvastatin 20 mg Tablet (simvastatin 20 mg oral tablet) ??40 mg, By Mouth, Daily at bedtime Thiamine 100 mg Tablet (thiamine 100 mg oral tablet) ??100 mg, By Mouth, Daily CONTINUOUS: (1) Lactated Ringers (1000 mL) Cont IV 1,000 mL (LR 1,000 mL) ??1,000 mL, IV Infusion, 100 mL/hr PRN: (10) Acetaminophen 325 mg Tablet (Acetaminophen Tablet) ??650 mg, By Mouth, Every 4 hours Albuterol 90mcg/Inhalation Inhaler HFA (albuterol CFC free 90 mcg/inh inhalation aerosol) ??90 mcg 1 puffs, Inhalation, Every 4 hours Chloraseptic Lozenge ??1 lozenge, By Mouth, Every 3 hours Dextromethorphan-Guaifenesin 20 mg-200 mg/10 mL Liqu UD (Robitussin DM Liquid) ??10 mL, By Mouth, Every 4 hours Magnesium Hydroxide 8% Susp UD (Milk of Magnesia Liquid) ??30 mL, By Mouth, Every 4 hours Melatonin 3 mg Tablet (Melatonin Tablet) ??6 mg, By Mouth, Daily at bedtime MorPHINE 2 mg Inj Syringe (MorPHINE Inj) ??2 mg, IV Push Slowly, Every 6 hours NaCl 0.9% Flush 3ml (NaCL 0.9% Flush) ??3 mL, IV Push, Every 8 hours Ondansetron 2mg/mL Inj (2mL Vial) (Zofran Inj) ??4 mg, IV Push, Every 6 hours TraMADOL 50 mg Tablet (traMADol 50 mg oral tablet) ??50 mg, By Mouth, Every 6 hours ? Results Abnormal Labs ?? BLOOD COUNT & DIFF ??Abs. NRBC ??0.0 k/mm3 () ??03/05/2023 08:03 ??Hct ??33.5 % (Low) ??03/05/2023 08:03 ??Hgb ??11.1 Gm/dL (Low) ??03/05/2023 08:03 ??Nucleated RBC (Automated) ??0.0 #/100 WBC'S () ??03/05/2023 08:03 ??RBC ??3.51 m/mm3 (Low) ??03/05/2023 08:03 ??RDW-SD ??42.1 femtoliters () ??03/05/2023 08:03 ??WBC ??3.9 k/mm3 (Low) ??03/05/2023 08:03 ? CHEM GENERAL ??Estimated GFR Creatinine ??103 ML/MIN/1.73 M2 () ??03/05/2023 08:03 ? Note: Critical results are displayed in red. ? Assessment/Plan ?? 67-year-old female with a past medical history of A-fib on Eliquis, SVT, pulmonary embolism, history of colon cancer s/p resection with colostomy, neurogenic bladder (self-catheterization), conversion disorder, pseudoseizures on Keppra PW multiple seizures at home. Reportedly, she had 2 seizures inthe ED she received Ativan Zofran, Keppra. During this admission she underwent vEEG without epileptic markers, off Keppra. Per neurology, there is no evidence here to suggest and epileptiform d/o andthere is no reason from information here to indicate the need for Keppra or that she has an epileptiform disorder. However she was put on Keppra elsewhere (Dr. Hernández) for unclear reasons and would need to defer Keppra management to Dr. Hernández as an outpatient, for now, will continue. Her course was complicated by a UTI which she initially denied having symptoms, then reported dysuria and increased urinary frequency on 02/20. She reports anaphylaxis to all oral antimicrobial therapy, therefor completed ceftriaxone for??5 days.??She continued to complain of post prandial pain and had very poor PO intake, GI was consulted and esophageal barium swallow showed a distal esophageal stricture, now awaiting EGD (significant >4 day delay) ? #History of colon cancer s/p partial colectomy/ostomy #Abdominal pain, nausea #Distal esophageal stricture ???Continues to complain of post prandial abdominal pain, poor PO intake. ??It was previously thought to be related to constipation however episodes today resolved.?? Patient continues with good ostomy output. ??She did have a repeat CT abdomen on 02/22??showing diarrheal illness otherwise??nonacute.?? On 02/23 she did undergo an x-ray esophagus barium swallow which did show a distal esophageal stricture, plan was for EGD with dilation??on 02/26 however this was deferred to outpatient due to COVID-positive status. ??Patient continues to have very minimal intake ??? Discussed with GI??this morning, 03/01,??scheduled for EGD??03/03 ? *Last dose of Eliquis 02/27 AM, will restart Eliquis after EGD ?Continue??with??bowel regimen: Scheduled MiraLAX/Senna daily, as needed MOM ??? Serial abdominal exams ??? Monitor??ostomy output ??? NPO for procedure ??? ONS TID with meals ???Scheduled ODT Zofran AM/PM and PRN ???Continue with IV fluids until PO intake improves ???Pain control: PRN?? morphine ? #COVID-19? Vaccination status: Pfizer x2, symptom onset is unclear. ??She initially tested??positive??02/25??so her isolation??will be from 02/25 to 03/07. ??Patient did undergo a chest x-ray on 02/27 which did not show any??acute cardiopulmonary abnormalities. ??She is asymptomatic. ??We will hold off on initiation of??any steroids or antibacterial coverage ??? Monitor O2 saturation ??? Symptomatic treatment as needed ? #Nonphysiologic seizures (R56.9):?Presented with ? seizure like activity, as above vEEG without epileptic markers ???Previously seen by Dr. Hernández and continues on Keppra for unclear reasons ???Neurology signed off this admission ???Seizure precautions ???Continue home??Keppra??for now ? *Needs follow up with Dr. Hernández? Chronic, stable or resolved medical conditions: Hypothyroidism: Continue levothyroxine 50 mcg daily GERD: Continue pantoprazole 40 mg daily HLD: Continue simvastatin 40 mg daily Insomnia: Continue trazodone??50 mg daily Conversion disorder/PTSD: Continue duloxetine? Afib (I48.91): [id number] score equal to 4. Eliquis on hold in preparation for possible EGD/dilation.?? Will restart Eliquis after EGD??continue digoxin History of pulmonary embolism (Z86.711):??Eliquis on hold as above Restless legs: Continue ropinirole at bedtime UTI (urinary tract infection) (N39.0): UA??from 02/17??suggestive of possible UTI, however she was asymptomatic at that time, now reporting symptoms. Reports anaphylaxis to almost all PO antimicrobials. Started ceftriaxone 1 g daily IV on 02/20.?? Benadryl 25 mg??PO prior to administration Completed a 5 day course of ceftriaxone. Bladder scan every shift, straight cath over 400 LUE edema: US negative for DVT. Suspect thrombophlebitis from recent IV placement. Warm compresses PRN ?? Code status: Full PPx: PCBs while Eliquis on hold Diet: full liquid ?? Ivonne Olosn,??DIEGO 03/03/2023?? Pager [phone] or via cortext? Diagnoses Afib ??(I48.91) History of pulmonary embolism ??(Z86.711) Nausea ??(R11.0) Seizures ??(R56.9) UTI (urinary tract infection) ??(N39.0) Vomiting ??(R11.10) Weight loss ??(R63.4) ?? OMN: poor PO intake, EGD, advancement of diet Disposition: Pending EGD, likely home no services 24 hours after procedure HCP: Amari Townsend - ? * Matthew Cisse RN: SIGN, VERIFY, PERFORM Event Display: Progress Note Hospital Authored Date: [id number] Patient: JUJU BERNARD Age: 67 years Sex: Female : 1955 Associated Diagnoses: None Author: Matthew Cisse RN Findings Problem Related to Alteration in Gastrointestinal : Alteration in Gastrointestinal Func/new 03/04/2023 15:00 EDT Alteration in GI status Related to Ostomy, GI, Other: abdominal pain, nausea Goals & Outcomes, Gastrointestinal Nutritional intake is adequate for metabolic needs, Ostomy will be functioning properly prior to D/C, Pt will correctly state/demonstrate applying ostomy pouch,Pt will correctly state/demonstrate emptying ostomy pouch, Pt will view ostomy Interventions, Gastrointestinal Assess/monitor abdomen for distention, tenderness BH Goals/Interventions, Gastrointestinal Yes Gastrointestinal, Problem Start 02/19/2023 3:43 Reviewed plan with, Gastrointestinal Patient Patient Progression, Gastrointestinal Pt progressing according to plan . Note * Kaye Sibley RN: PERFORM Event Display: Discharge/Transfer Note Hospital Authored Date: [id number] Nursing Discharge Note Entered On: 03/06/2023 12:05 EDT Performed On: 03/06/2023 12:05 EDT by Kaye Sibley RN Nursing Discharge Note 2 Discharge Time : 03/06/2023 12:00 EDT Discharge Level of Care at Discharge : Home/Chcf/Foster Care Patient Left Unit Via : Wheelchair Patient Accompanied Off Unit with : Responsible adult DC Instructions Provided & Signed by Pt : Yes Patient Understands D/C Instructions : Yes Verbalized Understanding of D/C Plan By : Patient Patient Instructions Discharge Signed : Yes Did Pt have Specialty Bed or Wound Vac : No Kaye Sibley RN - 03/06/2023 12:05 EDT * Torin PAUL, Pattie Leong: PERFORM Event Display: Discharge/Transfer Note Hospital Authored Date: [id number] Patient: ??JUJU BERNARD ? Age:??67 Years?Sex:??Female?:??1955?? Patient Information Discharge Location: W4 Primary Care Physician: Not on Staff, PCP Admit Date/Time: 02/11/23 19:59 Discharge Disposition Discharge Disposition: Home: No Services Discharge Diagnosis Afib (I48.91) COVID (U07.1) Esophagitis (K20.90) Gastritis (K29.70) History of pulmonary embolism (Z86.711) Nausea (R11.0) Seizures (R56.9) UTI (urinary tract infection) (N39.0) Vomiting (R11.10) Weight loss (R63.4) Chronic back pain GERD - Gastro-esophageal reflux disease Myofascial pain syndrome Narcotic dependence, opiate seeking behavior PTSD (post-traumatic stress disorder) ?? _ Discharge Medications Albuterol (ProAir HFA 90 mcg/inh inhalation aerosol with adapter)?1?puff(s)?Inhalation?Every 6 hours?as needed?for wheezing apixaban (Eliquis 5 mg oral tablet)?TAKE ONE (1) TABLET BY MOUTH TWICE DAILY Budesonide-Formoterol (Symbicort 80mcg/4.5mcg Inhaler)?2?puff(s)?Inhalation?2 times a day Dicyclomine (dicyclomine 20 mg oral tablet)?1?tab(s)?20?Milligram?By Mouth?2 [...] Calcium and Magnesium oral tablet)?1?tab(s)?By Mouth?Daily?for 30?Days Ondansetron (ondansetron 4 mg oral tablet, disintegrating)?4?Milligram?By Mouth?2 timesa day before breakfast and dinne?as needed?Nausea & Vomiting?for 3?Days Pantoprazole (pantoprazole 40 mg oral delayed release tablet)?40?Milligram?By Mouth?2 times a day?for 14?Days Ropinirole (rOPINIRole 1 mg oral tablet)?1?tab(s)?1?Milligram?By Mouth?Daily at bedtime Simvastatin (simvastatin 40 mg oral tablet)?40?Milligram?1?tablet?By Mouth?Daily at bedtime Sucralfate (Carafate 1 gm oral tablet)?1?gram?1?tablet?By Mouth?3 times a day before meals and bedtime?for 14?Days Trazodone (traZODone 50 mg oral tablet)?50?Milligram?1?tablet?By Mouth?Daily at bedtime ? PCP Follow-Up/Heads-Up ?? -GI will arrange follow-up for biopsy results??for esophagitis/gastritis -Please ensure she follows up with her outpatient neurologist Future Appointments Sunday 4:00 PM EDT ?? With: Chris PAUL, Gerardo Galvez Where: [facility] [address] [place] [address]- Status: Pending Hospital Course ?? 67-year-old female with a past medical history of A-fib on Eliquis, SVT, pulmonary embolism, history of colon cancer s/p resection with colostomy, neurogenic bladder (self-catheterization), conversion disorder, pseudoseizures on Keppra PW multiple seizures at home. Reportedly, she had 2 seizures inthe ED she received Ativan Zofran, Keppra. During this admission she underwent vEEG without epileptic markers, off Keppra. Per neurology, there is no evidence here to suggest and epileptiform d/o andthere is no reason from information here to indicate the need for Keppra or that she has an epileptiform disorder. However she was put on Keppra elsewhere (Dr. Hernández) for unclear reasons and would need to defer Keppra management to Dr. Hernández as an outpatient, for now, will continue. Her course was complicated by a UTI which she initially denied having symptoms, then reported dysuria and increased urinary frequency on 02/20. She reports anaphylaxis to all oral antimicrobial therapy, therefor completed ceftriaxone for??5 days.??She continued to complain of post prandial pain and had very poor PO intake, GI was consulted and esophageal barium swallow showed a distal esophageal stricture, finally underwent EGD with no significant stricture but evidence of esophagitis, gastritis and duodenitis. ??Discharged on PPI and Carafate and GI will follow-up with outpatient results.?? Patient discharged home with no services per patient preference. ? #History of colon cancer s/p partial colectomy/ostomy #Abdominal pain, nausea #Distal esophageal stricture ??? On 02/23 she did undergo an x-ray esophagus barium swallow which did show a distal esophageal stricture, plan was for EGD with dilation??on 02/26 however this was deferred to outpatient due to COVID-positive status.?GG EGD ?? 03/05/2023 16:00 ?No stricture seen. Gastritis, esophagitis and duodenitis seen,??biopsies taken, GI willcall with follow-up results. Discharged on PPI per GI recommendations. ? #COVID-19? Vaccination status: Pfizer x2, symptom onset is unclear. ??She initially tested??positive??02/25??so her isolation??will be from 02/25 to 03/07. ??Patient did undergo a chest x-ray on 02/27 which did not show any??acute cardiopulmonary abnormalities. ??She is asymptomatic. ??We will hold off on initiation of??any steroids or antibacterial coverage ? #Nonphysiologic seizures (R56.9):?Presented with ? seizure like activity, as above vEEG without epileptic markers ???Previously seen by Dr. Hernández and continues on Keppra for unclear reasons ???Neurology signed off this admission ???Seizure precautions ???Continue home??Keppra??for now ? *Needs follow up with Dr. Hernández? Chronic, stable or resolved medical conditions: Hypothyroidism: Continue levothyroxine 50 mcg daily GERD: Continue pantoprazole 40 mg, increased to twice daily due to gastritis/duodenitis HLD: Continue simvastatin 40 mg daily Insomnia: Continue trazodone??50 mg daily Conversion disorder/PTSD: Continue duloxetine History of opioid seeking behavior: Need to be cautious about opioid use when in hospital Afib (I48.91): [id number] score equal to 4. Eliquis History of pulmonary embolism (Z86.711):??Eliquis Restless legs: Continue ropinirole at bedtime UTI (urinary tract infection) (N39.0): UA??from 02/17??suggestive of possible UTI, however she was asymptomatic at that time, now reporting symptoms. Reports anaphylaxis to almost all PO antimicrobials. Completed a 5 day course of ceftriaxone. LUE edema: US negative for DVT. Suspect thrombophlebitis from recent IV placement. ? Objective Measurements?? Height: 160 cm (03/05/23) Weight: 50.3 kg (03/05/23) Dry Weight: 51 kg (02/12/23) Body Mass Index: 19.65 kg/m2 (03/05/23) ? Vital Signs?? Temperature: 98.3 DegF (03/06/23 08:05:00) Temperature Route: Oral (03/06/23 08:05:00) Pulse Rate: 69 bpm (03/06/23 08:05:00) Heart Rate Monitored: 75 bpm (03/05/23 17:09:00) Respiratory Rate: 20 br/min (03/06/23 03:26:00) Systolic Blood Pressure: 106 mm Hg (03/06/23 08:05:00) Diastolic Blood Pressure: 63 mm Hg (03/06/23 08:05:00) Blood pressure sites: Arm, right (03/06/23 08:05:00) Mean Arterial Pressure: 90 mm Hg (03/05/23 16:14:00) Pulse Pressure: 58 mm Hg (03/06/23 03:00:00) Oxygen Saturation: 98 % (03/06/23 08:05:00) Mode of Delivery (Oxygen): Room air (03/06/23 08:05:00) Early Warning Score: 3 (03/06/23 08:05:53) ? . Physical Exam ?? Constitutional:??Older female resting comfortably in bed, cooperative, no apparent??CV or respiratory distress Head:??Atraumatic, normocephalic ENT:??PERRL, moist mucous membranes Neck:??Supple, no tenderness Cardiovascular:??S1 S2, RRR, no murmur Pulm:??Clear to auscultation bilaterally with good air entry throughout, no wheezes, rhonchi, rales. ??No use of accessory muscles Abdominal:??Bowel sounds x4 quadrants, soft, NT, ND, no guarding, colostomy bag in place Extremities:??No edema??or tenderness??bilateral lower extremities Neuro:??Alert and oriented x3, moves all extremities spontaneously and independently Skin: Warm/dry, intact ? Surgical Procedures Gastroscopy (EGD) Diagnostic 03/05/2023 16:41 Pending Results Add On Lab Order ordered on 02/11/2023 Add On Lab Order ordered on 02/27/2023 Pathology Tissue Request ordered on 03/05/2023 Follow-Up Appointments Added Follow Up ?Time Frame ?Comments [facility]?Within two weeks?- Please follow-up with your PCP at [facility] within 2 weeks after discharge to discuss your recent hospital admission. Patient Instructions ? -You were initially admitted due to seizure-like activity concerns, the seizure doctor saw you and no medication changes were made??with no evidence of active seizures -You were found to have COVID infection, you do not need any COVID-specific therapies -You had a urinary tract infection for which she completed treatment with IV antibiotics -You were having abdominal pain, you underwent an endoscopy which showed inflammation of your stomach and food pipe for which you have been started on acid blocking agents pantoprazole and sucralfate.?? The gastroenterology doctors will call you with biopsy results and arrange follow-up for you ?? Post Discharge Care Diet: Dysphagia Pureed (Level 1) Diet Activity: As tolerated Code Status: ?? Full Resuscitation Condition: Stable Prognosis: Fair Discharge ?03/06/23 9:32:00 EDT Discharge Prescriptions ?ePrescribed, ??03/06/23 9:32:00 EDT Home Health Face to Face ^HomeHealthFTF Results Discharge Labs BLOOD COUNT & DIFF WBC 3.9 k/mm3 (Low)?? 03/05/2023 08:03 RBC 3.51 m/mm3 (Low)?? 03/05/2023 08:03 Hgb 11.1 Gm/dL (Low)?? 03/05/2023 08:03 Hct 33.5 % (Low)?? 03/05/2023 08:03 MCV 95.4 femtoliters ()?? 03/05/2023 08:03 MCH 31.6 pg ()?? 03/05/2023 08:03 MCHC 33.1 g/dL ()?? 03/05/2023 08:03 Platelet Count 261 k/mm3 ()?? 03/05/2023 08:03 RDW-SD 42.1 femtoliters ()?? 03/05/2023 08:03 MPV 9.8 femtoliters ()?? 03/05/2023 08:03 Nucleated RBC (Automated) 0.0 #/100 WBC'S ()?? 03/05/2023 08:03 Abs. NRBC 0.0 k/mm3 ()?? 03/05/2023 08:03 Abs. Neut 3.1 k/mm3 ()?? 02/27/2023 09:05 Abs. Lymph 1.4 k/mm3 ()?? 02/27/2023 09:05 Abs. Meade 0.5 k/mm3 ()?? 02/27/2023 09:05 Abs. Eo 0.2 k/mm3 ()?? 02/27/2023 09:05 Abs. Baso 0.0 k/mm3 ()?? 02/27/2023 09:05 Neut % 59.1 % ()?? 02/27/2023 09:05 Lymph % 26.0 % ()?? 02/27/2023 09:05 Meade % 9.6 % ()?? 02/27/2023 09:05 Eos % 4.3 % ()?? 02/27/2023 09:05 Baso % 0.6 % ()?? 02/27/2023 09:05 Imm Gran 0.4 % ()?? 02/27/2023 09:05 Abs. Imm Gran 0.0 k/mm3 ()?? 02/27/2023 09:05 ?? CARDIAC Nt-Probnp 174 pg/mL (High)?? 02/11/2023 12:36 High Sensitivity Troponin (HSTnT) 9 ng/L ()?? 02/11/2023 17:08 ?? CHEM GENERAL Sodium 142 mmol/L ()?? 03/05/2023 08:03 Potassium 4.4 mmol/L ()?? 03/05/2023 08:03 Chloride 106 mmol/L ()?? 03/05/2023 08:03 Bicarbonate Level 28 mmol/L ()?? 03/05/2023 08:03 Anion Gap 8 ()?? 03/05/2023 08:03 Glucose Level 106 mg/dL (High)?? 02/28/2023 01:21 Glucose, POC 73 mg/dL ()?? 02/12/2023 09:44 BUN 9 mg/dL ()?? 03/05/2023 08:03 Creatinine-Blood 0.5 mg/dL ()?? 03/05/2023 08:03 Estimated GFR Creatinine 103 ML/MIN/1.73 M2 ()?? 03/05/2023 08:03 Calcium 9.6 mg/dL ()?? 02/21/2023 00:29 Phosphorus 4.1 mg/dL ()?? 03/01/2023 06:12 Magnesium 1.9 mg/dL ()?? 03/01/2023 06:12 Protein, Total 7.1 Gm/dL ()?? 02/18/2023 07:43 Albumin 4.5 Gm/dL ()?? 02/18/2023 07:43 AG Ratio 1.7 ()?? 02/18/2023 07:43 Alkaline Phosphatase 98 units/L ()?? 02/18/2023 07:43 Lipase 23 units/L ()?? 02/11/2023 12:36 AST (SGOT) 24 units/L ()?? 02/18/2023 07:43 ALT (SGPT) 18 units/L ()?? 02/18/2023 07:43 Bilirubin, Total 0.4 mg/dL ()?? 02/18/2023 07:43 Lactate 1.9 mmol/L ()?? 02/11/2023 12:36 C-Reactive Protein <0.3 mg/dL ()?? 02/27/2023 09:05 ? COAG INR 1.0 ()?? 03/05/2023 08:03 Protime (PT) 10.5 seconds ()?? 03/05/2023 08:03 APTT 62.8 seconds (High)?? 02/26/2023 03:54 ? HEME OTHER Hold Lavender Top SPECIMEN DISCARDED AFTER 24 HOURS. ()?? 02/11/2023 17:08 ? IMMUNOLOGY GENERAL Prealbumin 16.8 mg/dL (Low)?? 02/13/2023 01:26 ? TOXICOLOGY/TDM Ethanol, Serum or Plasma NONE DETECTED mg/dL ()?? 02/11/2023 12:36 Digoxin Level <0.4 ng/mL (Low)?? 02/11/2023 17:08 Levetiracetam Level 25.30 mg/L ()?? 02/12/2023 16:40 ? UA/URINALYSIS Appear/Color, Urine YELLOW ()?? 02/17/2023 20:25 Specific [place], Urine 1.016 ()?? 02/17/2023 20:25 pH, Urine 6.5 ()?? 02/17/2023 20:25 Albumin, Urine TRACE (Abnormal)?? 02/17/2023 20:25 Glucose, Urine NEGATIVE ()?? 02/17/2023 20:25 Ketones, Urine NEGATIVE ()?? 02/17/2023 20:25 Bilirubin, Urine NEGATIVE ()?? 02/17/2023 20:25 Hemoglobin, Urine NEGATIVE ()?? 02/17/2023 20:25 Nitrite, Urine POSITIVE (Abnormal)?? 02/17/2023 20:25 Leukocyte, Urine 3+ (Abnormal)?? 02/17/2023 20:25 Urobilinogen NORMAL mg/dL ()?? 02/17/2023 20:25 WBC's, Urine 67 /HPF (High)?? 02/17/2023 20:25 RBC's, Urine 2 /HPF ()?? 02/17/2023 20:25 Bacteria SLIGHT HPF (Abnormal)?? 02/17/2023 20:25 Squamous Epith 15 /HPF (High)?? 02/17/2023 20:25 Mucus SLIGHT /LPF ()?? 02/17/2023 20:25 Budding Yeast MODERATE /HPF ()?? 02/11/2023 16:50 Hold Urine Culture Testing available 48 hours from time of collection. ()?? 02/11/2023 16:50 ?? URINE OTHER Est Creatinine Clearance 89.11 mL/min ()?? 03/05/2023 08:43 ? VIROLOGY COVID-19 by RT-PCR NEGATIVE ()?? 02/11/2023 21:19 COVID-19 PCR Specimen Source NASAL ()?? 02/25/2023 18:20 COVID-19 PCR Result POSITIVE (Abnormal)?? 02/25/2023 18:20 COVID-19 Antigen POC Result NEGATIVE (N)?? 02/26/2023 17:30 ? Microbiology ?? COVID-19 (2019 Novel Coronavirus) PCR?? Completed?? Source: Nasopharyngeal Swab Body Site: Nasopharyngeal Collected Dt/Tm: 02/25/2023 18:17 Last Updated Dt/Tm: 02/26/2023 01:48 COVID-19 Antigen POC?? Completed?? Source: Nasal Body Site: Nose Collected Dt/Tm: 02/26/2023 17:30 Last Updated Dt/Tm: 02/27/2023 10:15 ? Procedures(s) ?GG EGD ?? 03/05/2023 16:00 ?No stricture seen. Gastritis, esophagitis and duodenitis seen,??biopsies taken, GI willcall with follow-up results. Discharged on PPI per GI recommendations. ? Imaging(s) ?Abdomen AP ?? 02/17/2023 13:21??by Nikos Thibodeaux MD ? IMPRESSION: ?? No evidence of bowel obstruction. ?CT Abd/Pelvis W/ IV Contrast Only ?? 02/11/2023 16:18??by Adriel Hdz MD ?IMPRESSION: ?? 1. Interval development of pneumobilia with small amount of air visualized in the proximal common bile duct. This may be related to previous instrumentation. 2. No evidence of bowel obstruction or definite acute bowel abnormality. 3. Distal urinary bladder with mild circumferential wall thickening. Correlation with urinalysis issuggested to rule out cystitis. ? 44_ minutes spent on discharge * Kaye Sibley RN: PERFORM Event Display: Patient Education/Instruction Authored Date: [id number] Inpatient Adult Discharge Instructions [address] [address] Name: JUJU BERNARD : 1955 Visit: 02/11/2023 19:59:00 Current Date: 03/06/2023 09:50 Account: [id number] Inpatient Adult Discharge Instructions We would like [...] and their families. Surveys are administered by [employer] ?? If further treatment with your primary care physician or another doctor is recommended, it is important for you to keep the appointment. Call your primary care physician or return to the Emergency Department immediately if your condition worsens, fails to improve, or new symptoms develop. If you need to find a doctor, you can call [facility] for a referral at [phone] or toll free at [phone]) or log in to [email or web address].. ?? You can view and manage your care through the patient portal or by using a health care heather of your choosing. [employer] is a website that allows you to securely view your medical information including your hospital discharge summary, office visit summaries, medications and follow-up visits. You can also request appointments, renew medications, and request access to your medical information using a health care heather of your choosing, or just ask a question. You can enroll at [email or web address] or register during your next office visit. You have been discharged from [facility], Patient Care Unit: W4. If you have any questions regarding these instructions after you leave, please call us and we will be happy to assist you. [facility] Your Care Team Attending Physician Torin PAUL, Pattie Leong Consulting Providers Marilyn PAUL, Yaya Kulkarni MD, Jose; Adrián PAUL, Chavez Banks MD, Jose Discharging Providers Torin PAUL, Pattie Leong Reason for Admission seizure Your Diagnosis Vomiting UTI (urinary tract infection) Seizures Afib History of pulmonary embolism Nausea Weight loss COVID Esophagitis Gastritis Tests Performed Below is a partial list of the tests performed during your hospitalization. You may have had other tests and procedures not included in this list. Please discuss all test results with your provider. Alcohol Level Alk Phos ALT AST Basic Metabolic Panel BUN C-REACTIVE PROTEIN Calcium Level CBC CBC w/ Differential Complete Urinalysis Comprehensive Metabolic Panel COVID-19 (2019 Novel Coronavirus) PCR COVID-19 (Novel Coronavirus), Rapid PCR COVID-19 Antigen POC Creatinine DIFFERENTIAL Digoxin Level Electrolytes Glucose Level GLUCOSE POC High??Sensitivity??Troponin T HOLD LAVENDER TUBE INR Lactate Level Levetiracetam Level Lipase Lytes Magnesium Level Phosphorus Level Prealbumin ProBNP PTT Total Bilirubin Urinalysis w/hold for Urine Culture CT Abd/Pelvis W/ IV Contrast Only Portable Chest US Doppler Ext Lower Venous Bilat US Doppler Ext Lower Venous Right US Doppler Ext Upper Venous Left XR Chest 2 Views Frontal and Lat XR Esophagus Barium Swallow XR KUB or Abdomen Primary Care Provider Not on Staff, PCP Advance Directive Health Care Proxy on File Yes - Health Care Proxy Discharge Vitals Temperature: 98.3 DegF Height: 160 cm Pulse Rate: 69 bpm Weight: 50.3 kg Respiratory Rate: 20 br/min Body Mass Index: 19.65 kg/m2 Systolic Blood Pressure: 106 mm Hg Body surface area: 1.5 Diastolic Blood Pressure: 63 mm Hg ?? Oxygen Saturation: 98 % ?? Studies Pending All tests and labs ordered during this hospital stay have been completed unless listed below. Please discuss all pending results with your provider listed above in these instructions. ?? Add On Lab Order Pathology Tissue Request () What to do next Instructions From Your Doctor ? -You were initially admitted due to seizure-like activity concerns, the seizure doctor saw you and no medication changes were made??with no evidence of active seizures -You were found to have COVID infection, you do not need any COVID-specific therapies -You had a urinary tract infection for which she completed treatment with IV antibiotics -You were having abdominal pain, you underwent an endoscopy which showed inflammation of your stomach and food pipe for which you have been started on acid blocking agents pantoprazole and sucralfate.?? The gastroenterology doctors will call you with biopsy results and arrange follow-up for you ?? Discharge Orders Diet:??Dysphagia Pureed (Level 1) Diet Activity:??As tolerated Code Status:?? Full Resuscitation Condition:??Stable Prognosis:??Fair Scheduled Follow-Up Appointments Sunday 4:00 PM EDT ?? With: Gerardo Perez MD Where: [place] [address]- Status: Pending You Need to Schedule the Following Appointments Follow Up with??[facility] When:??Within Within two weeks Why: -Please follow-up with your PCP at [facility] within 2 weeks after discharge to discuss your recent hospital admission. Discharge Medications JUJU BERNARD :1955 Visit Date:02/11/2023 Medications: Please continue your medications until treatment is completed or stopped by your provider. Medications not listed below should be discontinued. Discuss any questions related to medications with your provider. What How Much When Instructions Next Dose New Ondansetron (ondansetron 4 mg oral tablet, disintegrating) 4 Milligram Oral 2 times a day before breakfast and dinner as needed for Nausea & Vomiting Duration: 3 Days Pickup at [facility] 3 As needed New Sucralfate (Carafate 1 gm oral tablet) 1 tab(s) Oral 3 times a day before meals and bedtime Duration: 14 Days Pickup at [facility] 3 Before meals Changed Pantoprazole (pantoprazole 40 mg oral delayed release tablet) 40 Milligram Oral Twice a day Duration: 14 Days Pickup at [facility] 3 Tonight 03/06 Unchanged Albuterol (ProAir HFA 90 mcg/ inh inhalation aerosol with adapter) 1 puff(s) Inhalation Every 6 hours as needed for for wheezing As needed Unchanged apixaban (Eliquis 5 mg oral tablet) TAKE ONE (1) TABLET BY MOUTH TWICE DAILY ?? Tonight 03/06 Unchanged Budesonide-Formoterol (Symbicort 80mcg/ 4.5mcg Inhaler) 2 puff(s) Inhalation Twice a day Tonight 03/06 Unchanged Dicyclomine (dicyclomine 20 mg oral tablet) 1 tab(s) Oral Twice a day Ton03/06 Unchanged Digoxin (digoxin 0.125 mg oral tablet) 1 tab(s) Oral Daily This afternoon 03/06 at 4pm Unchanged Duloxetine (duloxetine 60 mg oral enteric coated capsule) 1 capsule Oral Daily Tomorrow AM 03/07 Unchanged levETIRAcetam (levETIRAcetam 100 mg/ mL oral solution) 7.5 Milliliter Oral Twice a day Duration: 30 Days Ton03/06 Unchanged Levothyroxine (levothyroxine 0.05 mg oral tablet) 1 tab(s) Oral Daily Tomorrow AM 03/07 Unchanged Loperamide (loperamide 2 mg oral capsule) 1 capsule Oral Every 4 hours as needed for for loose stool As needed Unchanged Loratadine (loratadine 10 mg oral tablet) 1 tab(s) Oral Daily Tomorrow AM 03/07 Unchanged Multivitamin With Minerals (multivitamin with minerals Calcium and Magnesium oral tablet) 1 tab(s) Oral Daily Duration: 30 Days Tomorrow AM 03/07 Unchanged Ropinirole (rOPINIRole 1 mg oral tablet) 1 tab(s) Oral Daily at Bedtime 03/06 Unchanged Simvastatin (simvastatin 40 mg oral tablet) 1 tab(s) Oral Daily at Bedtime 03/06 Unchanged Trazodone (traZODone 50 mg oral tablet) 1 tab(s) Oral Daily at Bedtime 03/06 Pharm[facility] Information [facility]: [address], [place] [id number] [phone] ?? What How Much When Comments Stop Taking amiTRIPTYLINE (amitriptyline 25 mg oral tablet) 1 tab(s) Oral Daily at Bedtime Stop Taking Diclofenac Topical (Voltaren 1% topical gel) 1 heather Topically 4 times a day as needed for for pain Stop Taking Oxybutynin (oxybutynin 5 mg oral tablet) 1 tab(s) Oral Twice a day Test Results Below is a partial list of the most recent Laboratory test results done prior to this discharge. You may have had other tests and procedures not included in this list. Please discuss all test resultswith your provider. Est Creatinine Clearance - 89.11 mL/min (03/05/2023) Alcohol Level (02/11/2023) ???Ethanol, Serum or Plasma - NONE DETECTED Alk Phos (02/11/2023) ???Alkaline Phosphatase - 89 units/L ALT (02/11/2023) ???ALT (SGPT) - 28 units/L AST (02/11/2023) ???AST (SGOT) - 24 units/L Basic Metabolic Panel (02/21/2023) ???Sodium - 137 mmol/L???Potassium - 3.9 mmol/L???Chloride - 101 mmol/L???Bicarbonate Level - 23 mmol/L???Anion Gap - 13???Glucose Level - 97 mg/dL???BUN - 31 mg/dL???Creatinine-Blood - 0.6 mg/dL???Estimated GFR Creatinine - 98 ML/MIN/1.73 M2???Calcium - 9.6 mg/dL BUN (03/05/2023) ???BUN - 9 mg/dL C-REACTIVE PROTEIN (02/27/2023) ? ?C-Reactive Protein - <0.3 mg/dL Calcium Level (02/11/2023) ???Calcium - 8.0 mg/dL CBC (03/05/2023) ???WBC - 3.9 k/mm3???RBC - 3.51 m/mm3???Hgb - 11.1 Gm/dL???Hct - 33.5 %???MCV - 95.4 femtoliters???MCH - 31.6 pg???MCHC - 33.1 g/dL???Platelet Count - 261 k/mm3???RDW-SD - 42.1 femtoliters???MPV - 9.8 femtoliters???Nucleated RBC (Automated) - 0.0 #/100 WBC'S???Abs. NRBC - 0.0 k/mm3 CBC w/ Differential (02/11/2023) ???WBC - 6.7 k/mm3???RBC - 4.16 m/mm3???Hgb - 12.8 Gm/dL???Hct - 39.5 %???MCV - 95.0 femtoliters???MCH - 30.8 pg???MCHC - 32.4 g/dL???Platelet Count - 374 k/mm3???RDW-SD - 47.3 femtoliters???MPV - 9.4 femtoliters???Nucleated RBC (Automated) - 0.0 #/100 WBC'S???Abs. NRBC - 0.0 k/mm3???Abs. Neut - 4.4 k/mm3???Abs. Lymph - 1.7 k/mm3???Abs. Meade - 0.4 k/mm3???Abs. Eo - 0.1 k/mm3???Abs. Baso - 0.1 k/mm3???Neut % - 66.0 %???Lymph % - 25.3 %???Meade % - 6.6 %???Eos % - 1.0 %???Baso % - 0.7 %???Imm Gran- 0.4 %???Abs. Imm Gran - 0.0 k/mm3 Complete Urinalysis (02/17/2023) ???Appear/Color, Urine - YELLOW???Specific [place], Urine - 1.016???pH, Urine - 6.5???Albumin, Urine - TRACE???Glucose, Urine - NEGATIVE???Ketones, Urine - NEGATIVE???Bilirubin, Urine - NEGATIVE???Hemoglobin, Urine - NEGATIVE???Nitrite, Urine - POSITIVE???Leukocyte, Urine - 3+???Urobilinogen - NORMAL???WBC's, Urine - 67 /HPF???RBC's, Urine - 2 /HPF???Bacteria - SLIGHT???Squamous Epith - 15 /HPF???Mucus - SLIGHT Comprehensive Metabolic Panel (02/18/2023) ???Sodium - 136 mmol/L???Potassium - 4.8 mmol/L???Chloride - 93 mmol/L???Bicarbonate Level - 32 mmol/L???Anion Gap - 11???Glucose Level - 98 mg/dL???BUN - 18 mg/dL???Creatinine-Blood - 0.7 mg/dL???Estimated GFR Creatinine - 97 ML/MIN/1.73 M2???Calcium - 10.0 mg/dL???Protein, Total - 7.1 Gm/dL???[place] min - 4.5 Gm/dL???AG Ratio - 1.7???Alkaline Phosphatase - 98 units/L???AST (SGOT) - 24 units/L???ALT (SGPT) - 18 units/L???Bilirubin, Total - 0.4 mg/dL COVID-19 (2019 Novel Coronavirus) PCR (02/25/2023) ???COVID-19 PCR Specimen Source - NASAL???COVID-19 PCR Result - POSITIVE COVID-19 (Novel Coronavirus), Rapid PCR (02/11/2023) ???COVID-19 by RT-PCR - NEGATIVE COVID-19 Antigen POC (02/26/2023) ???COVID-19 Antigen POC Result - NEGATIVE Creatinine (03/05/2023) ???Creatinine-Blood - 0.5 mg/dL???Estimated GFR Creatinine - 103 ML/MIN/1.73 M2 DIFFERENTIAL (02/27/2023) ???Abs. Neut - 3.1 k/mm3???Abs. Lymph - 1.4 k/mm3???Abs. Meade - 0.5 k/mm3???Abs. Eo - 0.2 k/mm3???Abs. Baso - 0.0 k/mm3???Neut % - 59.1 %???Lymph % - 26.0 %???Meade % - 9.6 %???Eos % - 4.3 %???Baso % - 0.6 %???Imm Gran - 0.4 %???Abs. Imm Gran - 0.0 k/mm3 Digoxin Level (02/11/2023) ? ?Digoxin Level - <0.4 ng/mL Electrolytes (03/05/2023) ???Sodium - 142 mmol/L???Potassium - 4.4 mmol/L???Chloride - 106 mmol/L???Bicarbonate Level - 28 mmol/L???Anion Gap - 8 Glucose Level (02/28/2023) ???Glucose Level - 106 mg/dL GLUCOSE POC (02/12/2023) ???Glucose, POC - 73 mg/dL High??Sensitivity??Troponin T (02/11/2023) ???High Sensitivity Troponin (HSTnT) - 9 ng/L HOLD LAVENDER TUBE (02/11/2023) ???Hold Lavender Top - SPECIMEN DISCARDED AFTER 24 HOURS. INR (03/05/2023) ???INR - 1.0???Protime (PT) - 10.5 seconds Lactate Level (02/11/2023) ???Lactate - 1.5 mmol/L Levetiracetam Level (02/12/2023) ???Levetiracetam Level - 25.30 mg/L Lipase (02/11/2023) ???Lipase - 23 units/L Lytes (02/13/2023) ???Sodium - 141 mmol/L???Potassium - 3.3 mmol/L???Chloride - 109 mmol/L???Bicarbonate Level - 24 mmol/L???Anion Gap - 8 Magnesium Level (03/01/2023) ???Magnesium - 1.9 mg/dL Phosphorus Level (03/01/2023) ???Phosphorus - 4.1 mg/dL Prealbumin (02/13/2023) ???Prealbumin - 16.8 mg/dL ProBNP (02/11/2023) ???Nt-Probnp - 174 pg/mL PTT (02/26/2023) ???APTT - 62.8 seconds Total Bilirubin (02/11/2023) ???Bilirubin, Total - 0.3 mg/dL Urinalysis w/hold for Urine Culture (02/11/2023) ???Appear/Color, Urine - YELLOW???Specific [place], Urine - 1.012???pH, Urine - 6.0???Albumin, Urine - 1+???Glucose, Urine - NEGATIVE???Ketones, Urine - NEGATIVE???Bilirubin, Urine - NEGATIVE???Hemoglobin, Urine - TRACE???Nitrite, Urine - POSITIVE???Leukocyte, Urine - 3+???Urobilinogen - NORMAL???WBC's, Urine - >182 /HPF? ?RBC's, Urine - 28 /HPF? ?Bacteria - MODERATE? ?Squamous Epith - 1 /HPF? ?Mucus - SLIGHT???Budding Yeast - MODERATE???Hold Urine Culture - Testing available 48 hours from time of collection. Allergies (NKA means No Known Allergies) gabapentin??(States [...] Educational Leaflet Providered with your Discharge Instructions. Valuables and Belongings I fully understand and agree that [facility] accepts no responsibility for all my personal [...] patient Date for Pt to Sign Valuables/Belongings: 03/05/23 16:14:00 ?? Valuables & Belongings ?? Clothes Electronic devices Jewelry Monetary Items Personal devices Miscellaneous Medications (Valuables) Valuables at Bedside Pants, Shirt, Shoes, Undergarments, Other: sweater Cell phone ?? Purse, Wallet, Other: make up bag Dentures, full, Glasses Cosmetic bag, Other: cards Other: nurses has her 5 bottles of meds Valuables Sent Home ? Valuables Sent to Security ? Other Discharge Information ? Case Management Discharge Plan?? Discharge Plan?? Discharge Level of Care at Discharge: Home/Chcf/Foster Care ?? Pulmonary Rehab Status?? Pulmonary Rehab Discharge Status?? Respiratory Rate: 20 br/min ? Common Emergency Awareness Tips IS [...] are strongly encouraged to quit. Please call [facility] [employer] Customer Support at [phone] or [phone] ([phone]) or log in to [email or web address] for referrals to smoking cessation programs. ?? 741 Suicide & Crisis Lifeline is available 16/04 if you or someone you know needs to find a reason to keep living. By calling 286 you'll be connected to a skilled, trained counselor at a crisis center in your area. INPATIENT DISCHARGE INSTRUCTIONS SIGNATURE PAGE JUJU BERNARD Location:[facility] Registration Date and Time:02/11/2023 19:59 EDT Primary Care Physician: Not on Staff, PCP Attending Physician: Torin PAUL, Pattie Leong, I JOANA, JUJU, have received the above patient education materials/instructions and have verbalized understanding. If ambulance or transport services are being used I further acknowledge being given a choice of service. ?? If you need to contact me, please call me at this number: . Patient/Thoracic Medicine Physician Name: Patient/Thoracic Medicine Physician Signature: Relationship to Patient: Witness Name/Signature: Date: CT Abdomen and Pelvis W contrast IV * LEXI Tomlinson S: NICOLE Rivera MD, Jalen Frias: VERIFY Event Display: Result: Authored Date: [id number] CT Abd/Pelvis W/ IV Contrast Only INDICATION: Abdominal pain, inability to tolerate PO, history of colectomy colostomy; Clinical Question(s): Colitis TECHNIQUE: Spiral CT through the abdomen and pelvis with IV contrast formatted in 3 planes. 75 cc of Omnipaque 300 was administered intravenously. This study was performed without oral contrast. Weight-based protocol using automatic tube modulation was used to optimize exposure parameters. CTDIvol Body: 6.56 mGy, DLP Body: 336 mGy*cm. COMPARISON: 02/11/2023 FINDINGS: Hot Die Press Feeder View Findings, Lines and Tubes: None. Visualized Chest: Lung bases are clear. No pleural effusion. The heart is normal in size. No pericardial effusion. Diaphragm: Unchanged elevated right hemidiaphragm. Liver: Normal. Gallbladder: Absent consistent with prior cholecystectomy. Bile ducts: Unchanged dilated CBD without obstruction lesion seen, likely on the basis of previous cholecystectomy. Spleen: Normal. Pancreas: Normal. Adrenal glands: Normal. Kidneys and ureters: No hydronephrosis, stones, or suspicious masses. Small hypodensities that are too small to characterize are noted, requiring no dedicated follow up. Bladder: Mild wall thickening. Reproductive organs: The uterus is not seen and may be surgically absent. Stomach, small bowel, and large bowel: Status post partial colectomy with left lower quadrant colostomy. There is some liquid stool in the remaining colon but no colonic wall thickening or adjacent fat stranding. Few small bowel anastomoses, no evidence of small bowel obstruction. Mild fluid distention of the stomach. Appendix: Not seen, but no evidence of appendicitis. Peritoneum and retroperitoneum: No ascites or pneumoperitoneum. No omental or mesenteric lesions. Lymph nodes: No enlarged lymph nodes. Blood vessels: Mild vascular calcifications but no aneurysm. IVC filter in place. Abdominal and pelvic wall: Left lower quadrant colostomy. Rectus sheath diastases. Bones: No acute abnormality. IMPRESSION: 1. Liquid stool throughout the colon suggestive of a diarrheal illness. No colonic wall thickening or adjacent fat stranding to suggest colitis. 2. Mild bladder wall thickening may be due to cystitis. WSN: [id number] Ordering Physician: Cheryl Nickerson Dictated By: Jalen Rivera MD Dictated Date/Time: 02/22/23 12:34 p Reviewed By: Jalen Rivera MD Signed By: Jalen Rivera MD Signed Date/Time: 02/22/23 12:34 pm Transcribed By: CSRobbin Transcribed Date/Time: 02/22/23 12:28 pm * BHSPowerscrilizette , LEXI S: TRANSCRIBE Adriel Hdz MD S: VERIFY Teofilo PAUL, Anali A: SIGN Event Display: Result: Authored Date: [id number] CT Abd/Pelvis W/ IV Contrast Only HX OF PRESENT ILLNESS: seizure; Reason: Pain; Clinical Question(s): Obstruction; TECHNIQUE: Spiral CT through the abdomen and pelvis with IV contrast formatted in 3 planes. 75 cc of Omnipaque 300 was administered intravenously. This study was performed without oral contrast. Weight-based protocol using automatic tube modulation was used to optimize exposure parameters. CTDIvol Body: 10.70 mGy, DLP Body: 559 mGy*cm. COMPARISON: CT abdomen and pelvis from 08/19/2022 and MR abdomen from 08/20/2022. FINDINGS: Hot Die Press Feeder View Findings, Lines and Tubes: None. Visualized Chest: No focal consolidation. Mild bibasal atelectasis. No pleural effusion. The heart is normal in size. No pericardial effusion. Diaphragm: Normal. Liver: Normal attenuation. There is mild pneumobilia in the left hepatic lobe. Gallbladder: Absent consistent with prior cholecystectomy. Bile ducts: No intrahepatic biliary ductal dilation. Dilated common bile duct measuring up to 1.4 cm proximal, which tapers down to a 0.6 cm distally, secondary to postcholecystectomy status. There is a small amount of gas within the proximal common bile duct (series 201; image 45). Spleen: Normal. Pancreas: Normal. Mild prominence of the pancreatic duct. Adrenal glands: Normal. Kidneys and ureters: No hydronephrosis, stones, or suspicious masses. Small hypodensities that are too small to characterize are noted, requiring no dedicated follow up. Bladder: Distended urinary bladder with mild circumferential wall thickening. Reproductive organs: Unremarkable. Stomach, small bowel, and large bowel: Normal caliber stomach. Small gas locules likely within the lumen rather than the duodenal alanis (series 201; image 66). Status post left lower quadrant colostomy with surgical sutures within the left lower quadrant and midabdomen. No evidence of bowel obstruction. Appendix: Not seen, but no evidence of appendicitis. Peritoneum and retroperitoneum: No ascites or pneumoperitoneum. No omental or mesenteric lesions. Lymph nodes: No enlarged lymph nodes. Blood vessels: Mild vascular calcifications but no aneurysm. Incidentally seen is a circumaortic left renal vein. No evidence of venous thrombosis. IVC filter in place. Abdominal and pelvic wall: Postsurgical changes in the anterior abdominal wall with a hernia mesh. Bones: No acute abnormality. IMPRESSION: 1. Interval development of pneumobilia with small amount of air visualized in the proximal common bile duct. This may be related to previous instrumentation. 2. No evidence of bowel obstruction or definite acute bowel abnormality. 3. Distal urinary bladder with mild circumferential wall thickening. Correlation with urinalysis issuggested to rule out cystitis. I have personally reviewed the images and I agree with this report. WSN: [id number] Ordering Physician: Omid Garcia Dictated By: Anali Red MD Dictated Date/Time: 02/11/23 5:19 pm Reviewed By: Adriel Hdz MD Signed By: Adriel Hdz MD Signed Date/Time: 02/11/23 5:24 pm Transcribed By: MARIA Transcribed Date/Time: 02/11/23 5:05 pm Portable XR Chest Views * [facility] , CIS S: TRANSCRIBE Michlele PAUL, Ferny: VERIFY Bonnie Gordon DO P: SIGN Event Display: Result: Authored Date: [id number] Chest Portable Reason: Shortness of Breath; Clinical Question(s): Pneumonia COMPARISON: Multiple priors, most recently 02/11/2023. FINDINGS: LINES AND TUBES: None. LUNGS AND PLEURA: Clear lungs. Normal pulmonary vascularity. Unchanged chronic mild elevation of the lateral right hemidiaphragm and blunted right costophrenic angle. No pleural effusion. No pneumothorax. HEART, MEDIASTINUM AND ALEXUS: Heart is normal in size. Normal mediastinal and hilar contour. BONES AND SOFT TISSUES: No acute abnormality. IMPRESSION: No acute abnormality. I have personally reviewed the images and I agree with this report. WSN: [id number] Ordering Physician: Cheryl Nickerson Dictated By: Bonnie Gordon DO Dictated Date/Time: 02/27/23 9:16 am Reviewed By: Ferny Martinez MD Signed By: Ferny Martinez MD Signed Date/Time: 02/27/23 9:21 am Transcribed By: MARIA Transcribed Date/Time: 02/27/23 9:14 am Laboratory * [employer] , CIS S: Reese Fernandes MD: VERIFY Event Display: Result: Authored Date: [id number] Chest 2 Views Frontal and Lat Hx of Present Illness: seizure; Reason: Pleuritic Pain; Clinical Question(s): Pneumonia COMPARISON: 05/30/2022.] FINDINGS: LINES AND TUBES: None. LUNGS AND PLEURA: Clear lungs. Normal pulmonary vascularity. No pleural effusion. Chronic blunting of the right costophrenic angle is sharp No pneumothorax. HEART, MEDIASTINUM AND ALEXUS: Heart is normal in size. Normal mediastinal and hilar contour. BONES AND SOFT TISSUES: No acute abnormality. IVC filter in place. IMPRESSION: No acute abnormality. WSN: [id number] Ordering Physician: Omid Garcia Dictated By: Reese Reynolds MD Dictated Date/Time: 02/11/23 3:56 pm Reviewed By: Reese Reynolds MD Signed By: Reese Reynolds MD Signed Date/Time: 02/11/23 3:56 pm Transcribed By: MARIA Transcribed Date/Time: 02/11/23 3:53 pm Radiology * [email or web address] , CIS S: Kaitlin Meehan MD: VERIFY Event Display: Result: Authored Date: [id number] US Doppler Ext Upper Venous Left Reason: Pain Tenderness Extremities; Clinical Question(s): Thrombosis COMPARISON: None. IMAGING TECHNIQUE: Ultrasound examination of the upper extremity deep venous system was performed using grayscale, color, and spectral wave analysis including response to compression. Assessment includes the contralateral jugular and subclavian vein. FINDINGS: Internal jugular vein: Patent. No thrombosis. Subclavian vein: Patent. No thrombosis. Axillary vein: Patent. No thrombosis. Brachial vein: Patent. No thrombosis. Basilic vein: Patent. No thrombosis. Cephalic vein: Patent. No thrombosis. Contralateral internal jugular vein: Patent. No thrombosis. Contralateral subclavian vein: Patent. No thrombosis. IMPRESSION: No evidence of venous thrombosis. WSN: [id number] Ordering Physician: Rui Duffy Dictated By: Kaitlin Mike MD Dictated Date/Time: 02/25/23 11:55 a Reviewed By: Kaitlin Mike MD Signed By: Kaitlin Mike MD Signed Date/Time: 02/25/23 11:55 am Transcribed By: MARIA Transcribed Date/Time: 02/25/23 11:52 am * Davi , LEXI S: TRANSCRILv Tejada MD: VERIFY Event Display: Result: Authored Date: [id number] US Doppler Ext Lower Venous Right Refer to EMR; Reason: Swelling Extremities; R leg swelling hx DVT; Clinical Question(s): Thrombus; COMPARISON: 02/13/2023 IMAGING TECHNIQUE: Ultrasound of the veins from the groin through the calf was performed using grayscale, color, and spectral Doppler ultrasound assessing for complete compressibility and normal flowcharacteristics. FINDINGS: Common femoral vein: Patent. No thrombosis. Femoral vein: Patent. No thrombosis. Popliteal vein: Patent. No thrombosis. Gastrocnemius veins: The visualized portions are patent without evidence of thrombosis. Peroneal veins: The visualized portions are patent without evidence of thrombosis. Posterior tibial veins: The visualized portions are patent without evidence of thrombosis. Contralateral common femoral vein: Patent. No thrombosis. OTHER FINDINGS: None. IMPRESSION: No evidence of deep venous thrombosis. WSN: [id number] Ordering Physician: Christiano Mata Dictated By: Lv Senior MD Dictated Date/Time: 02/17/23 9:03 am Reviewed By: Lv Senior MD Signed By: Lv Senior MD Signed Date/Time: 02/17/23 9:03 am Transcribed By: MARIA Transcribed Date/Time: 02/17/23 8:53 am US.doppler Lower extremity vein - bilateral * Huyenscsky , CIS S: TRANSCRIJalen Matthew MD: VERIFY Event Display: Result: Authored Date: [id number] US Doppler Ext Lower Venous Bilat Reason: Pain Tenderness Extremities; Clinical Question(s): Thrombosis; Order Comment: 02 13 2023 18:42:29 EDT- Pt is hooked up to EEG machine and unable to be disconnected, please check back tomorrow -MG COMPARISON: None IMAGING TECHNIQUE: Streamlined portable ultrasound of the lower extremity deep venous system was performed using grayscale, color, and spectral Doppler ultrasound from the common femoral through the popliteal vein assessing for complete compressibility and good response to compression and augmentation. The calf veins are not assessed. FINDINGS: RIGHT LOWER EXTREMITY: Common femoral vein: Patent. No thrombosis. Femoral vein: Patent. No thrombosis. Popliteal vein: Patent. No thrombosis. LEFT LOWER EXTREMITY: Common femoral vein: Patent. No thrombosis. Femoral vein: Patent. No thrombosis. Popliteal vein: Patent. No thrombosis. OTHER FINDINGS: IMPRESSION: No evidence of deep venous thrombosis from the groin through the popliteal vein. Calf veins not assessed with portable technique. WSN: [id number] Ordering Physician: Nat Allison Dictated By: Jalen Oconnell MD Dictated Date/Time: 02/13/23 9:54 pm Reviewed By: Jalen Oconnell MD Signed By: Jalen Oconnell MD Signed Date/Time: 02/13/23 9:54 pm Transcribed By: MARIA Transcribed Date/Time: 02/13/23 9:54 pm XR Abdomen AP * [employer] , CIS S: TRANSCRIBE Nikos Thibodeaux MD: VERIFY Event Display: Result: Authored Date: [id number] Supine view of the abdomen and pelvis dated January 20172022. Comparison films are from October 19, 2012. HISTORY: No ostomy output. FINDINGS: This examination shows a nonobstructed bowel gas pattern. There is an ostomy in the left lower quadrant. Surgical clips are noted. There is evidence of a prior left-sided hernia repair. There is evidence of surgical damion consistent with bowel anastomosis. An IVC filter is present with its tip at the L2 level. There is a mild convex left thoracolumbar scoliosis with associated degenerative changes. IMPRESSION: No evidence of bowel obstruction. Postoperative changes. Examination 14254. Thank you for allowing me to participate in the care of this patient. WSN: [id number] Ordering Physician: Christiano Matarick Dictated By: Nikos Thibodeaux MD Dictated Date/Time: 02/17/23 1:26 pm Reviewed By: Nikos Thibodeaux MD Signed By: Nikos Thibodeaux MD Signed Date/Time: 02/17/23 1:26 pm Transcribed By: MARIA Transcribed Date/Time: 02/17/23 1:25 pm RF Esophagus Views W barium contrast PO * [facility] , CIS S: TRANSCRIBE Dillon Gonsalez MD: VERIFY Con Matamoros MD: SIGN Event Display: Result: Authored Date: [id number] PROCEDURE: Esophagus Barium Swallow CLINICAL INDICATION: Reason: Post prandial pain, inability to tolerate PO. History of esophageal strictures. COMPARISONS: 05/16/2022. FLUOROSCOPY TIME: 2 minutes 48 seconds EXPOSURE: 473.7 uGym2 TECHNIQUE: Barium contrast esophagram FINDINGS: Somewhat limited examination, patient is unable or unwilling to take large boluses of contrast. Esophagus remains somewhat under distended throughout the examination. Swallowing mechanism: Initial swallow demonstrates no laryngeal penetration or tracheal aspiration. Normal oral and pharyngeal phases. Esophagus: Limited evaluation due to lack of contrast distention. No evidence of mucosal irregularity or mass. Minimal gastroesophageal reflux with provocative maneuvers. 13mm barium tablet remains stomach at the GE junction. Additional sips of contrast and water did not result in progression of the tablet. Patient was unable to tolerate additional sips. Stomach and duodenum: Grossly normal. IMPRESSION: 1. Somewhat limited examination with findings consistent with a distal esophageal stricture with a 13 mm barium tablet remained stomach distally. 2. No evidence of complete esophageal obstruction. 3. Minimal gastroesophageal reflux with provocative maneuvers. I have personally reviewed the images and I agree with this report. WSN: [id number] Ordering Physician: Cheryl Nickerson Dictated By: Con Matamoros MD Dictated Date/Time: 02/23/23 4:32 pm Reviewed By: Dillon Gonsalez MD Signed By: Dillon Gonsalez MD Signed Date/Time: 02/23/23 4:37 pm Transcribed By: MARIA Transcribed Date/Time: 02/23/23 3:04 pm Patient Care team information Care Team Personnel Name: Sophie Crane RN Position: [facility] RN Member Role: Primary Care Nurse Name: Honorio Boudreaux RN Position: [facility] RN Member Role: Primary Care Nurse Name: Omid Rodriguez RN Position: [facility] RN Member Role: Primary Care Nurse Name: Kat Wagner RN Position: [facility] OB RN Member Role: Primary Care Nurse Name: Jay Reich RN Position: [facility] RN Member Role: Primary Care Nurse Name: Mónica Montanez RN Position: [facility] SN RN Member Role: Primary Care Nurse Name: Yamilet Jack RN Position: [facility] RN Member Role: Primary Care Nurse Name: Jenni Crabtree RN Position: [facility] RN Member Role: Primary Care Nurse Name: Socorro Lewis RN Position: [facility] RN Member Role: Primary Care Nurse Name: Socorro Gilbert RN Position: [facility] SN RN Member Role: Primary Care Nurse Name: Delbert Coyne RN Position: [facility] RN Member Role: Primary Care Nurse Name: Lisa Deutsch RN Position: [facility] SN Carrier Packer Member Role: Primary Care Nurse Name: Rubin Alberto RN Position: [facility] RN Member Role: Primary Care Nurse Name: Sunil Crowley RN Position: [facility] ED RN W/OE and Tasks Member Role: Primary Care Nurse Name: Long Bravo Position: [facility] RN Member Role: Primary Care Nurse Name: Georgie Kruse RN Position: [facility] RN Member Role: Primary Care Nurse Name: Renu Azar RN Position: [facility] Onco RN Member Role: Primary Care Nurse Name: Noah Mccann RN Position: [facility] RN Member Role: Primary Care Nurse Name: Jamila Neil Position: [facility] RN Member Role: Primary Care Nurse Name: Juliana Rehman RN Position: [facility] RN Member Role: Primary Care Nurse Name: Aide Lockett RN Position: [facility] RN Member Role: Primary Care Nurse Name: Balbina Lafleur RN Position: [facility] RN Member Role: Primary Care Nurse Name: Genesis Stewart RN Position: [facility] RN Member Role: Primary Care Nurse Name: Maribel Dc RN Position: [facility] RN Supv Member Role: Primary Care Nurse Name: Not on Staff, PCP Position: [facility] Physician (General Medicine) Member Role: PCP Name: Sara Guevara RN Position: [facility] RN Member Role: Primary Care Nurse Name: Georgie Shirley RN Position: [facility] RN Member Role: Primary Care Nurse Name: Saniya Raines RN Position: [facility] RN Member Role: Primary Care Nurse Name: Jenifer Conway RN Position: [facility] RN Member Role: Primary Care Nurse Name: Tori Sanchez RN Position: [facility] RN Member Role: Primary Care Nurse Name: Syl Taylor NP Position: [facility] Associate Professional Member Role: Primary Care Nurse Address: Address: [address] [place] [address] [address] [facility] [place], [place] [address] Name: Johana Quintana RN Position: [facility] RN Member Role: Primary Care Nurse Name: Juliana Daniels RN Position: [facility] RN Member Role: Primary Care Nurse Name: Karla Ferrell RN Position: [facility] RN Member Role: Primary Care Nurse Name: Carmen Alvarado RN Position: [facility] SN RN Member Role: Primary Care Nurse Name: Leonela Huerta RN Position: [facility] RN Member Role: Primary Care Nurse Name: Ivonne Moreno RN Position: [facility] RN Member Role: Primary Care Nurse Name: Nadya Perales RN Position: [facility] RN Member Role: Primary Care Nurse Name: Jenn Worley LPN Position: [facility] RN Member Role: Primary Care Nurse Name: Kaye Murrieta RN Position: [facility] RN Member Role: Primary Care Nurse Name: Renny REED Attending Position: [facility] ED Medicine MD Name: Socorro Adhikari Position: [facility] ED TA [facility] Member Role: Senior Controls Analyst Name: Marlene Vines Position: [facility] ED OA Charge Member Role: ED Associate Name: Genna Bustos Position: [facility] ED RN W/OE and Tasks Member Role: Patient Care Provider Care Team Related Persons Name: IVONNE FELIZ Address: [facility] Name: TRAY GAVIN Name: CLEMENTINE MICHAEL Address: home [address] [address] Name: CLEMENTINE AMARI Address: home [address] [place] [address] Name: PARISH SANTO Address: home [address] [place] [address]
--- OUTSIDE RECORDS SUMMARY | 2023-07-13 20:38 | XMS_ITS | Continuity of Care Document ---
Author Name Unknown Organization [facility] ter Address [address] [place] [id number]- Care Team Providers Care Global Transportation Manager Name Role Phone Conrado PAUL, Bob Luis Primary Care Physic lisa [facility]): 12[facility] - 12/16/[address] [address] Discharge Disposition: Discharged to Hospice-Home (routine care Attending Physician: Genesis Felipe DO Admitting Physician: Galilea Toussaint MD Referring Physician: Not on Staff, Referring MD Allergies, Adverse Reactions, Alerts Substance Reaction Severity Status codeine n-v Active doxycycline n-v rash Active sulfa drugs n-v rash Active tetracycline n-v rash Active levofloxacin n-v Active clindamycin n-v rash Active erythromycin n-v rash Active rifampin n-v rash Active oxacillin n-v rash Active amoxicillin n-v rash Amoxycillin allergy Active penicillin anaphylaxis rash Active vancomycin n-v rash Active gabapentin States breathing difficulty and itchiness from med Severe Active Levaquin n-v rash Active Depakote Active Seafood Active Glutens Allergy to seafood Active Rice severe vomiting Active Immunizations Given and Recorded Vaccine Date Status Refusal Reason SARS-CoV-2 mRNA (sslyrkd-bqhg-myojg) vax 1 12/11/21 Given influenza virus vaccine, [...] without difficulty, tolerated well 3Result Comment: lot #[id number] exp 10/03/06 Medications amitriptyline 25 mg oral tablet 25 mg, 1, tablet, By Mouth, Daily at bedtime, Maintenance, 09/01/21 15:50:00 EST, ; Start Date: 09/01/21 Status: Ordered aspirin 81 mg oral delayed release tablet 81 mg, 1, tablet, By Mouth, Daily, # 30 tablet, Refills 1, Tot. Refills 1, Maintenance, 11/06/21 11:43:00 EST, Route to Pharmacy Electronically, [facility], Partial fill upon patient request if the prescription is for a schedule II opioi... Start Date: 11/06/21 Status: Ordered clonazePAM 0.5 mg oral tablet 0.5 tablet = 0.25 mg, By Mouth, Daily, PRN Anxiety, # 15 tablet, 1 Refills, Maintenance, 11/06/21 11:43:00 EST, Tablet, [facility], Partial fill upon patient request if the prescriptionis for a schedule II opioid drug., 155, cm, ... Start Date: 11/06/21 Stop Date: 01/05/22 Status: Ordered dicyclomine 20 mg oral tablet 1 tablet = 20 mg, By Mouth, 2 times a day, # 60 tablet, 0 Refills, Maintenance, 11/06/21 11:49:00 EST, Tablet, [facility], Partial fill upon patient request if the prescription is for aschedule II opioid drug., 155, cm, 09/03/21 8:09:00... Start Date: 11/06/21 Status: Ordered digoxin 0.125 mg oral tablet 125 mcg, 1, tablet, By Mouth, Daily, # 30 tablet, Refills 0, Tot. Refills 0, Maintenance, 11/06/21 11:50:00 EST, Route to Pharmacy Electronically, [facility], Partial fill [...] each, 0 Refills, Maintenance, 11/06/2210:50:00 EST, Injection, [facility], Partial fill [...] 0 Refills, Maintenance, 11/29/21 15:19:00 EST, Solution, [facility], Partial fill [...] oxyCODONE 5 mg oral tablet 20 mg, Tablet, By Mouth, 12/16/21 11:00:00 EDT Start Date: 12/16/21 Stop Date: 12/16/21 Status: Completed oxyCODONE 5 mg oral tablet 20 mg, 4, tablet, By Mouth, Every 6 hours, # 28 tablet, Refills 0, Tot. Refills 0, Maintenance, 12/16/21 15:33:00 EDT, Route to Pharmacy Electronically, [facility], Partial fill upon patient request [...] 11/06/21 11:44:00 EST, Route to Pharmacy Electronically, [facility], Partial fill uponpatient request if the prescription is for a schedu... Start Date: 11/06/21 Status: Ordered Symbicort 80mcg/4.5mcg Inhaler 2, puffs, Inhalation, 2 times a day, # 1 each, Refills 0, Tot. Refills 0, Maintenance, 11/06/21 11:43:00 EST, Inhaler, Route to Pharmacy Electronically, [id number], [facility], 155, cm, 09/03/21 8:09:00 EST, Hei... Start Date: 11/06/21 Status: Ordered traZODone 50 mg oral tablet 50 mg, 1, tablet, By Mouth, Daily at bedtime, # 30 tablet, Refills 0, Tot. Refills 0, Maintenance, 11/06/21 11:44:00 EST, Route to Pharmacy Electronically, [facility] 3, Partial fill uponpatient request if [...] Acute 12/29/21 15:20:00 EDT, 11/29/21 15:20:00 EST, [facility], Partial fill upon patient request if [...] Complex psychosocial issues. 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 REPORT STATUS : FINAL 12/15/2021 TEST:Blood Culture STATUS:Auth (Verified) BODY SITE: SOURCE:Blood COLLECTED DATE/TIME:12/10/21 8:15 AM Blood Culture SPECIMEN DESCRIPTION : BLOOD LHAND SPECIAL REQUESTS : NONE CULTURE : NO GROWTH 5 DAYS. REPORT STATUS : FINAL 12/15/2021 Radiology Reports * Exam Date Time Procedure Performing Provider Status 12/14/21 12:22 PM Esophagus Barium Swallow Rosa Escamilla; Auth (Verified) Notes: (Esophagus Barium Swallow) Reason For Exam: Food Regurgitation RESULT: Esophagus Barium Swallow PROCEDURE: Esophagus Barium Swallow CLINICAL INDICATION: History of esophageal strictures; esophagitis on CT; question stricture COMPARISONS: None FLUOROSCOPY TIME: 1.0 Min Dose Area Product (DAP): 507.1 uGy*m2 TECHNIQUE: Barium contrast esophagram was performed by Edil Cordoba PA-C. FINDINGS: Swallow: Normal oral and pharyngeal phases with no laryngeal penetration or subglottic aspiration. Esophagus: Normal in contour and mucosal appearance. Tertiary contraction of the distal half the esophagus is seen with some proximal escape of barium bolus noted. No hiatal hernia. No spontaneous gastroesophageal reflux was appreciated during the study. A 13 mm barium tablet is temporarily impededat the level of GE junction subsequently passing with an additional swallow of barium. No evidence of esophageal web, narrowing or outpouching. No esophageal obstruction. The stomach and proximal duodenum are grossly normal. Contrast promptly empties from the stomach into a nondilated duodenum. No gastric outlet obstruction. IMPRESSION: No esophageal obstruction. Mild esophageal dysmotility. By undersigning and finalizing the report, the attending radiologist confirms he/she has personallyreviewed and interpreted the images and agrees with the description of the findings. I have personally reviewed the images and I agree with this report. WSN: [id number] Ordering Physician: Roberto Carlos Mitchlel Dictated By: Bhupinder Doll Dictated Date/Time: 12/14/21 1:55 pm Reviewed By: Lisa Guevara MD Signed By: Lisa Guevara MD Signed Date/Time: 12/14/21 2:00 pm Transcribed By: MARIA Transcribed Date/Time: 12/14/21 12:05 pm * Exam Date Time Procedure Performing Provider Status 12/10/21 2:35 AM Chest 2 Views Frontal and Lat Sanam Olsen (Verified) Notes: (Chest 2 Views Frontal and Lat) Reason For Exam: Chest Pain;Other: RESULT: Chest 2 Views Frontal and Lat Chest 2 Views Frontal and Lat HX OF PRESENT ILLNESS: Substernal sharp constant cp since this morning. Associated sob, hx of copd,pt also nauseous earlier and vomited [employer], decreased appetite, states when she does eat foot passesright through loose output in ostomy; Reason: Chest Pain COMPARISON: 11/26/2021 FINDINGS: LINES AND TUBES: None. LUNGS AND PLEURA: Unchanged elevated right hemidiaphragm and blunting of the right costophrenic angle. New patchy opacity in the left lower lobe. No pneumothorax. HEART, MEDIASTINUM AND ALEXUS: Heart is normal in size. Normal mediastinal and hilar contour. BONES AND SOFT TISSUES: No acute abnormality. IMPRESSION: New patchy left basilar opacity could be due to atelectasis, pneumonia, or aspiration. WSN: [id number] Ordering Physician: Jovon Avalos Dictated By: Jalen Rivera MD Dictated Date/Time: 12/10/21 8:19 am Reviewed By: Jalen Rivera MD Signed By: Jalen Rivera MD Signed Date/Time: 12/10/21 8:19 am Transcribed By: MARIA Transcribed Date/Time: 12/10/21 8:18 am Vital Signs Most recent to oldest [Reference Range]: 1 2 3 Height 155 cm (12/15/21 7:17 PM) 155 cm (12/15/21 2:12 PM) 155 cm (12/15/21 2:10 PM) Weight 51.5 kg (12/15/21 2:12 PM) 51.5 kg (12/15/21 2:10 PM) 51.5 kg (12/10/21 4:21 PM) Oxygen Saturation [94-100 %] 94 % (12/16/21 8:00 AM) 92 % *L* (12/15/21 7:17 PM) 94 % (12/15/21 4:14 PM) Pulse Rate [55-90 bpm] 87 bpm (12/16/21 4:26 PM) 84 bpm (12/16/21 8:00 AM) 79 bpm (12/15/21 7:17 PM) Body Mass Index [18.5-24.99] 21.44 (12/15/21 2:12 PM) 21.44 (12/10/21 4:21 PM) Blood Pressure [90-138/55-84 mm Hg] 101/63mm Hg (12/16/21 4:26 PM) 103/56mm Hg (12/16/21 8:00 AM) 95/57mm Hg (12/15/21 7:17 PM) Respiratory Rate [16-30 br/min] 20 br/min (12/16/21 2:26 PM) 20 br/min (12/16/21 1:26 PM) 18 br/min (12/16/21 8:00 AM) Temperature [96.8-100.4 DegF] 98.4 DegF (12/16/21 8:00 AM) 98.3 DegF (12/15/21 7:17 PM) 98.1 DegF (12/15/21 2:12 PM) Mode of Delivery (Oxygen) Room air (12/16/21 8:00 AM) Room air (12/15/21 7:17 PM) Room air (12/15/21 4:14 PM) Blood pressure sites Arm, left (12/16/21 8:00 AM) Arm, right (12/15/21 7:17 PM) Arm, left (12/15/21 4:14 PM) Temperature Route Oral (12/16/21 8:00 AM) Oral (12/15/21 7:17 PM) Temporal (12/15/21 2:12 PM) Dry Weight 51.5 kg (12/10/21 4:21 PM) Mobility assistance Ambulate, assist of 1 (12/15/21 2:10 PM) Social History Social History Type Response Smoking Status Never (less than 100 in lifetime) entered on: 11/26/21 Sex
--- OUTSIDE RECORDS SUMMARY | 2023-07-13 20:38 | XMS_ITS | Continuity of Care Document ---
Author Name Unknown Organization [facility] ter Address [address] [place] [address]- Care Team Providers Care Maintenance Repairman Name Role Phone Conrado PAUL, Bob Luis Primary Care Physic lisa [facility] Date[facility]s): 05/02/20 - 05/02/[address] [address]- [facility] Encounter Diagnosis Colostomy care(Final) - 05/02/20 Discharge Disposition: A-D/C Home Attending Physician: Bryson Nunn MD Admitting Physician: Bryson Nunn MD Referring Physician: Not on Staff, Referring [...] without difficulty, tolerated well 2Result Comment: lot #[id number] exp 10/03/06 Medications amitriptyline 25 mg oral [...] Most recent to oldest [Reference Range]: 1 Oxygen Saturation [94-100 %] 100 % (05/02/20 9:25 AM) Pulse Rate [55-90 bpm] 90 bpm (05/02/20 9:25 AM) Blood Pressure [90-138/55-84 mm Hg] 130/ 72mm Hg (05/02/20 9:25 AM) Respiratory Rate [16-30 br/min] 16 br/mi n (05/02/20 9:25 AM) Temperature [96.8-100.4 DegF] 98.1 DegF (05/02/20 9:25 AM) Mode of Delivery (Oxygen) Room air (05/02/20 9:25 AM) Blood pressure sites Arm, left (05/02/20 9:25 AM) Temperature Route Oral (05/02/20 9:25 AM) Social History Social History Type Response Smoking Status Never (less than 100 in lifetime) entered on: 11/14/18 Sex
--- OUTSIDE RECORDS SUMMARY | 2023-07-13 20:38 | XMS_ITS | Continuity of Care Document ---
Author Name Unknown Organization [facility] Address Unknown Care Team Providers Care Scrap Worker Name Role Phone Conrado PAUL, Bob Luis Primary Care Physic lisa [facility]counter [facility] Date(s): 12/21/21 - 01/20/22 [facility] Attending Physician: Val Prakash Admitting Physician: Val Prakash Referring Physician: [id number] Allergies, Adverse Reactions, Alerts Substance Reaction Severity [...] Vaccine Date Status Refusal Reason SARS-CoV-2 mRNA (txjvejr-brvq-okscw) vax 1 12/11/21 Given influenza virus vaccine, [...] without difficulty, tolerated well 3Result Comment: lot #[id number] exp 10/03/06 Medications amitriptyline 25 mg oral tablet 25 mg, 1, tablet, By Mouth, Daily at bedtime, Maintenance, 09/01/21 15:50:00 EST, ; Start Date: 09/01/21 Status: Ordered aspirin 81 mg oral delayed release tablet 81 mg, 1, tablet, By Mouth, Daily, # 30 tablet, Refills 1, Tot. Refills 1, Maintenance, 11/06/21 11:43:00 EST, Route to Pharmacy Electronically, [facility], Partial fill upon patient request if the prescription is for a schedule II opioi... Start Date: 11/06/21 Status: Ordered clonazePAM 0.5 mg oral tablet 0.5 tablet = 0.25 mg, By Mouth, Daily, PRN Anxiety, # 15 tablet, 1 Refills, Maintenance, 11/06/21 11:43:00 EST, Tablet, [facility], Partial fill upon patient request if the prescriptionis for a schedule II opioid drug., 155, cm, ... Start Date: 11/06/21 Stop Date: 01/05/22 Status: Ordered dicyclomine 20 mg oral tablet 1 tablet = 20 mg, By Mouth, 2 times a day, # 60 tablet, 0 Refills, Maintenance, 11/06/21 11:49:00 EST, Tablet, [facility], Partial fill upon patient request if the prescription is for aschedule II opioid drug., 155, cm, 09/03/21 8:09:00... Start Date: 11/06/21 Status: Ordered digoxin 0.125 mg oral tablet 125 mcg, 1, tablet, By Mouth, Daily, # 30 tablet, Refills 1, Tot. Refills 1, Maintenance, 12/28/21 8:43:00 EDT, Route to Pharmacy Electronically, [id number], Partial fill upon patient [...] each, 0 Refills, Maintenance, 11/06/2210:50:00 EST, Injection, [facility], Partial fill upon patient request [...] 0 Refills, Maintenance, 11/29/21 15:19:00 EST, Solution, [facility], Partial fill upon patient request [...] 12/16/21 15:33:00 EDT, Route to Pharmacy Electronically, [facility], Partial fill upon patient [...] 11/06/21 11:44:00 EST, Route to Pharmacy Electronically, [facility], Partial fill uponpatient request if the prescription is for a schedu... Start Date: 11/06/21 Status: Ordered Symbicort 80mcg/4.5mcg Inhaler 2, puffs, Inhalation, 2 times a day, # 1 each, Refills 0, Tot. Refills 0, Maintenance, 11/06/21 11:43:00 EST, Inhaler, Route to Pharmacy Electronically, [id number], [facility], 155, cm, 09/03/21 8:09:00 EST, Hei... Start Date: 11/06/21 Status: Ordered traZODone 50 mg oral tablet 50 mg, 1, tablet, By Mouth, Daily at bedtime, # 30 tablet, Refills 0, Tot. Refills 0, Maintenance, 11/06/21 11:44:00 EST, Route to Pharmacy Electronically, [facility], Partial fill uponpatient request if [...]
--- OUTSIDE RECORDS SUMMARY | 2023-07-13 20:38 | XMS_ITS | Continuity of Care Document ---
Author Name Unknown Organization [facility] Address [address] [place] [id number]- Care Team Providers Care Carbonizer Name Role Phone Not on Staff, PCP Primary Care Physician Unavail able [facility] Date[facility] 11[facility]28[facility]19 - 03/27/20 [facility] [address] [place] [address] [facility] Attending Physician: Ji Del Toro MD Admitting Physician: Ji Del Toro MD Allergies, Adverse [...] without difficulty, tolerated well 2Result Comment: lot #[id number] exp 10/03/06 Medications amitriptyline 25 mg oral [...]
--- OUTSIDE RECORDS SUMMARY | 2023-07-13 20:38 | XMS_ITS | Continuity of Care Document ---
Author Name Unknown Organization [facility] Address [address] [place] [id number]- Care Team Providers Care Label Paster Name Role Phone Conrado PAUL, Bob Luis Primary Care Physic lisa Encounter [facility] Date(s): 12/20/21 - 01/19/22 [facility] [address] [place] [address]- [place] Allergies, Adverse Reactions, Alerts Substance Reaction [...] Vaccine Date Status Refusal Reason SARS-CoV-2 mRNA (thebiaw-iahw-pggkg) vax 1 12/11/21 Given influenza virus vaccine, [...] without difficulty, tolerated well 3Result Comment: lot #[id number] exp 10/03/06 Medications amitriptyline 25 mg oral tablet 25 mg, 1, tablet, By Mouth, Daily at bedtime, Maintenance, 09/01/21 15:50:00 EST, ; Start Date: 09/01/21 Status: Ordered aspirin 81 mg oral delayed release tablet 81 mg, 1, tablet, By Mouth, Daily, # 30 tablet, Refills 1, Tot. Refills 1, Maintenance, 11/06/21 11:43:00 EST, Route to Pharmacy Electronically, [facility], Partial fill upon patient request if the prescription is for a schedule II opioi... Start Date: 11/06/21 Status: Ordered clonazePAM 0.5 mg oral tablet 0.5 tablet = 0.25 mg, By Mouth, Daily, PRN Anxiety, # 15 tablet, 1 Refills, Maintenance, 11/06/21 11:43:00 EST, Tablet, [facility], Partial fill upon patient request if the prescriptionis for a schedule II opioid drug., 155, cm, ... Start Date: 11/06/21 Stop Date: 01/05/22 Status: Ordered dicyclomine 20 mg oral tablet 1 tablet = 20 mg, By Mouth, 2 times a day, # 60 tablet, 0 Refills, Maintenance, 11/06/21 11:49:00 EST, Tablet, [facility], Partial fill upon patient request if the prescription is for aschedule II opioid drug., 155, cm, 09/03/21 8:09:00... Start Date: 11/06/21 Status: Ordered digoxin 0.125 mg oral tablet 125 mcg, 1, tablet, By Mouth, Daily, # 30 tablet, Refills 1, Tot. Refills 1, Maintenance, 12/28/21 8:43:00 EDT, [id number] Partial fill upon patient requestif the [...] each, 0 Refills, Maintenance, 11/06/2210:50:00 EST, Injection, [facility], Partial fill upon patient [...] 0 Refills, Maintenance, 11/29/21 15:19:00 EST, Solution, [facility], Partial fill upon patient [...] 12/16/21 15:33:00 EDT, Route to Pharmacy Electronically, [facility], Partial fill upon patient request if [...] 11/06/21 11:44:00 EST, Route to Pharmacy Electronically, [facility], Partial fill uponpatient request if the prescription is for a schedu... Start Date: 11/06/21 Status: Ordered Symbicort 80mcg/4.5mcg Inhaler 2, puffs, Inhalation, 2 times a day, # 1 each, Refills 0, Tot. Refills 0, Maintenance, 11/06/21 11:43:00 EST, Inhaler, Route to Pharmacy Electronically, [id number], [facility], 155, cm, 09/03/21 8:09:00 EST, Hei... Start Date: 11/06/21 Status: Ordered traZODone 50 mg oral tablet 50 mg, 1, tablet, By Mouth, Daily at bedtime, # 30 tablet, Refills 0, Tot. Refills 0, Maintenance, 11/06/21 11:44:00 EST, Route to Pharmacy Electronically, [facility], Partial fill uponpatient request [...]
--- OUTSIDE RECORDS SUMMARY | 2023-07-13 20:38 | XMS_ITS | Continuity of Care Document ---
Author Name Unknown Organization [facility] Address [address] [place] [address]- Care Team Providers Care Collections Clerk Name Role Phone Bryson Wright MD Primary Care Physician [phone] Encounter [facility] Date(s): 04/06/23 - 05/06/23 [facility] [address] [place], [place] [address] Attending Physician: Admmica, Val Admitting Physician: AdmtrVal Referring Physician: Admtr, Ar8 Allergies, Adverse Reactions, [...] inactivated 2 10/03/06 Gi juanita SARS-CoV-2 mRNA (xwpfzwg-lwex-ypvup) vax 02/25/22 Given SARS-CoV-2 mRNA (reowhiu-lcku-qoclx) vax 3 12/11/21 Given pneumococcal 13-valent vaccine [...] without difficulty, tolerated well 2Result Comment: lot #[id number] exp 10/03/06 3Early/Late Reason: Early/Late Reason: Med Not Available Medications Carafate 1 gm oral tablet 1 Gm, 1, tablet, By Mouth, 3 times a day before meals and bedtime, # 56 tablet, Refills 0, Tot. Refills 0, Maintenance, 03/06/23 9:28:00 EDT, Route to Pharmacy Electronically, [facility], Partial fill upon patient request if the prescrip... Start Date: 03/06/23 Stop Date: 03/20/23 Status: Ordered dicyclomine 20 mg oral tablet 1 tablet = 20 mg, By Mouth, 2 times a day, # 60 tablet, 0 Refills, Maintenance, 11/06/21 11:49:00 EST, Tablet, [facility], Partial fill upon patient request if the prescription is for aschedule II opioid drug., 155, cm, 09/03/21 8:09:00... Start Date: 11/06/21 Status: Ordered digoxin 0.125 mg oral tablet 1, tablet, By Mouth, Daily, # 30 tablet, Refills 1, Route to Pharmacy Electronically, [id number], 156, cm, 03/01/22 4:19:00 EDT, Height, 55.2, [...] 0 Refills, Maintenance, 11/29/21 15:19:00 EST, Solution, [facility], Partial fill upon patient [...] 0 Refills, Maintenance, 03/01/22 9:50:00 EDT, Tablet, [id number], Partial fill upon patient [...] 11/06/21 11:44:00 EST, Route to Pharmacy Electronically, [facility], Partial fill uponpatient request if the prescription is for a schedu... Start Date: 11/06/21 Status: Ordered Symbicort 80mcg/4.5mcg Inhaler 2, puffs, Inhalation, 2 times a day, # 1 each, Refills 0, Tot. Refills 0, Maintenance, 11/06/21 11:43:00 EST, Inhaler, Route to Pharmacy Electronically, [id number], [facility], 155, cm, 09/03/21 8:09:00 EST, Hei... Start Date: 11/06/21 Status: Ordered traZODone 50 mg oral tablet 50 mg, 1, tablet, By Mouth, Daily at bedtime, # 30 tablet, Refills 0, Tot. Refills 0, Maintenance, 11/06/21 11:44:00 EST, Route to Pharmacy Electronically, [facility], Partial fill uponpatient request [...] Care team information Care Team Personnel Name: oSphie Crane RN Position: [facility] RN Member Role: Primary Care Nurse Name: Bryson Wright MD Position: Reference Physician Member Role: PCP Address: Address: [address] [place] [address] [place] [id number] Name: Honorio Boudreaux RN Position: [facility] RN Member Role: Primary Care Nurse Name: Omid Rodriguez RN Position: [facility] RN Member Role: Primary Care Nurse Name: Kat Wagner RN Position: [facility] OB RN Member Role: Primary Care Nurse Name: Jay Reich RN Position: [facility] RN Member Role: Primary Care Nurse Name: Mónica Montanez RN Position: [facility] SN RN Member Role: Primary Care Nurse Name: Yamilet Jack RN Position: [facility] RN Member Role: Primary Care Nurse Name: Jenni Crabtree RN Position: [facility] RN Member Role: Primary Care Nurse Name: Socorro Gilbert RN Position: [facility] SN RN Member Role: Primary Care Nurse Name: Delbert Coyne RN Position: [facility] RN Member Role: Primary Care Nurse Name: Lisa Deutsch RN Position: [facility] SN Gas Engine Performance Engineer Member Role: Primary Care Nurse Name: Rubin Alberto RN Position: [facility] RN Member Role: Primary Care Nurse Name: Sunil Crowley RN Position: [facility] RN Member Role: Primary Care Nurse Name: Long Bravo Position: [facility] RN Member Role: Primary Care Nurse Name: Georgie Kruse RN Position: [facility] RN Member Role: Primary Care Nurse Name: Renu Azar RN Position: [facility] Onco RN Member Role: Primary Care Nurse Name: Noah Mccann RN Position: [facility] RN Member Role: Primary Care Nurse Name: Jamila Neil Position: [facility] RN Member Role: Primary Care Nurse Name: Juliana Rehman RN Position: [facility] RN Member Role: Primary Care Nurse Name: Aide Lockett RN Position: [facility] RN Member Role: Primary Care Nurse Name: Balbina Lafleur RN Position: [facility] RN Member Role: Primary Care Nurse Name: Alexa Gomez RN Position: [facility] RN Member Role: Primary Care Nurse Name: Genesis Stewart RN Position: [facility] RN Member Role: Primary Care Nurse Name: Maribel Dc RN Position: [facility] RN Darby Member Role: Primary Care Nurse Name: Sara Guevara RN Position: [facility] RN Member Role: Primary Care Nurse Name: Georgie Shirley RN Position: [facility] RN Member Role: Primary Care Nurse Name: Saniya Raines RN Position: [facility] RN Member Role: Primary Care Nurse Name: Jenifer Conwya RN Position: [facility] RN Member Role: Primary Care Nurse Name: Tori Sanchez RN Position: [facility] RN Member Role: Primary Care Nurse Name: Syl Taylor NP Position: [facility] Associate Professional Member Role: Primary Care Nurse Address: Address: [address] [place] [address] [facility] [place] [address]- Name: Johana Quintana RN Position: [facility] RN Member Role: Primary Care Nurse Name: Juliana Daniels RN Position: [facility] RN Member Role: Primary Care Nurse Name: Karla Ferrell RN Position: [facility] RN Member Role: Primary Care Nurse Name: Carmen Alvarado RN Position: [facility] SN RN Member Role: Primary Care Nurse Name: Leonela Huerta RN Position: [facility] RN Member Role: Primary Care Nurse Name: Ryan Moreno RN Position: [facility] RN Member Role: Primary Care Nurse Name: Nadya Perales RN Position: [facility] RN Member Role: Primary Care Nurse Name: Jenn Worley LPN Position: [facility] RN Member Role: Primary Care Nurse Name: Kaye Murrieta RN Position: [facility] RN Member Role: Primary Care Nurse Care Team Related Persons Name: RYAN FELIZ Address: [facility] Name: GAVIN FELIZ Name: MICHAEL SPRING Address: home [address] [address] Name: TANGELA SPRING Address: [address] [place] [address] Name: PARISH SANTO Address: home [address] [place] [address]
--- OUTSIDE RECORDS SUMMARY | 2023-07-13 20:38 | XMS_ITS | Continuity of Care Document ---
Author Name Unknown Organization [facility] ter Address [address] [place] [address]- Care Team Providers Care Ticket Clerk Name Role Phone Not on Staff, PCP Primary Care Physician Unavail able Encounter [facility] Date(s): 04/15/20 - 04/23/[address] [address]- [facility] Encounter Diagnosis Dehydration(Final) - 04/15/20 Acute abdominal pain(Final) - 04/16/20 Discharge Disposition: A-D/C AMA Attending Physician: Beka Newman MD Admitting Physician: Nabil Suarez MD Referring Physician: Not on Staff, Referring [...] without difficulty, tolerated well 2Result Comment: lot #[id number] exp 10/03/06 Medications acetaminophen 500 mg oral [...] Acute 04/30/20 8:17:00 EDT, 04/23/20 8:17:00 EDT, [facility], 156, cm, 04/23/20 7:59:00 EDT, [...] needed for pain, for 3 days, # 12 tablet, 0 Refills, Acute 04/26/20 8:02:00 EDT, 04/23/20 8:02:00 EDT, Tablet, [facility], Partial fillupon patient request, 156, cm, 04/23/20 7:59:00 EDT... Start Date: 04/23/20 Stop Date: 04/26/20 Status: Ordered ProAir HFA 90 mcg/inh inhalation [...] Procedure Date Related Diagnosis Body Site Status Endoscopic retrograde cholangiopancreatography (ERCP); with sphincterotomy/papillotomy 04/16/20 Compl eted Results Radiology Reports * Exam Date Time Procedure Performing Provider Status 04/16/20 5:02 PM ERCP Both Ducts Balbina Sullivan; Judy (Verified) Notes: (ERCP Both Ducts) Reason For Exam: severe abdominal pain dehydration RESULT: ERCP Both Ducts ERCP Both Ducts INDICATION: Refer to EMR; Reason: severe abdominal pain dehydration; Special Instructions: f.t. t.t. dap images saved; Hx of Present Illness: Pt reports diarrhea vomiting for the last 5 days. Pt alsoc o abdominal pain and left leg pain , Pt is tachycardic. Pt reports she has had Cancer and had part of her stomach removed.; Other Objective Findings: Pt is crying c o abdominal pa COMPARISONS: None TECHNIQUE: Fluoroscopy support was provided. There was no radiologist in attendance. Fluoroscopy time: 57 seconds Exposure: 12.28 mGy FINDINGS: Fluoroscopy support was provided. There was no radiologist in attendance. IMPRESSION: See above. WSN: [id number] Ordering Physician: Omega Hammond Dictated By: Gucci Valladares MD Dictated Date/Time: 04/16/20 11:37 p Reviewed By: Gucci Valladares MD Signed By: Gucci Valladares MD Signed Date/Time: 04/16/20 11:37 pm Transcribed By: MARIA Transcribed Date/Time: 04/16/20 11:36 pm Vital Signs Most recent to oldest [Reference Range]: 1 2 3 4 Height 156 cm (04/23/20 7:59 AM) 156 cm (04/23/20 5:00 AM) 156 cm (04/23/20 12:59 AM) Weight 57.4 kg (04/20/20 2:13 PM) 57.4 kg (04/16/20 2:39 PM) 57.4 kg (04/15/20 5:23 PM) Oxygen Saturation [94-100 %] 99 % (04/23/20 7:59 AM) 97 % (04/23/20 5:00 AM) 98 % (04/23/20 12:59 AM) Pulse Rate [55-90 bpm] 61 bpm (04/23/20 7:59 AM) 66 bpm (04/23/20 5:00 AM) 70 bpm (04/23/20 12:59 AM) Body Mass Index [18.5-24.99] 23.59 (04/20/20 2:13 PM) 23.59 (04/16/20 2:39 PM) 23.59 (04/15/20 5:23 PM) Blood Pressure [90-138/55-84 mm Hg] 93/57mm Hg (04/23/20 7:59 AM) 91/52mm Hg (04/23/20 5:00 AM) 101/63mm Hg (04/23/20 12:59 AM) Respiratory Rate [16-30 br/min] 20 br/min (04/23/20 7:59 AM) 20 br/min (04/23/20 6:15 AM) 19 br/min (04/23/20 5:00 AM) Temperature [96.8-100.4 DegF] 97.4 DegF (04/23/20 7:59 AM) 97.5 DegF (04/23/20 5:00 AM) 97.8 DegF (04/23/20 12:59 AM) Liters per Minute 5 L/min (04/20/20 4:00 PM) 5 L/min (04/20/20 4:00 PM) 5 L/min (04/20/20 3:45 PM) 5 L/min (04/20/20 3:45 PM) Mode of Delivery (Oxygen) Room air (04/23/20 7:59 AM) Room air (04/23/20 5:00 AM) Room air (04/23/20 12:59 AM) Blood pressure sites Arm, left (04/23/20 7:59 AM) Arm, left (04/23/20 5:00 AM) Arm, left (04/23/20 12:59 AM) Temperature Route Oral (04/23/20 7:59 AM) Oral (04/23/20 5:00 AM) Oral (04/23/20 12:59 AM) Dry Weight 54 kg (04/15/20 4:45 PM) Weight Obtained Via Bed scale (04/15/20 5:23 PM) Social History Social History Type Response Smoking Status Never (less than 100 in lifetime) entered on: 11/14/18 Sex
--- OUTSIDE RECORDS SUMMARY | 2023-07-13 20:38 | XMS_ITS | Continuity of Care Document ---
Author Name Unknown Organization [facility] Address [address] [place] [id number]- Care Team Providers Care Facility Administrator Name Role Phone Conrado PAUL, Bob Luis Primary Care Physic lisa Encounter [facility] Date(s): 12/09/21 - 01/08/22 [facility] [address] [place] [id number]- [place] Allergies, Adverse Reactions, Alerts Substance Reaction [...] Vaccine Date Status Refusal Reason SARS-CoV-2 mRNA (sywyzsl-zetu-ihbsi) vax 1 12/11/21 Given influenza virus vaccine, [...] without difficulty, tolerated well 3Result Comment: lot #[id number] exp 10/03/06 Medications amitriptyline 25 mg oral tablet 25 mg, 1, tablet, By Mouth, Daily at bedtime, Maintenance, 09/01/21 15:50:00 EST, ; Start Date: 09/01/21 Status: Ordered aspirin 81 mg oral delayed release tablet 81 mg, 1, tablet, By Mouth, Daily, # 30 tablet, Refills 1, Tot. Refills 1, Maintenance, 11/06/21 11:43:00 EST, Route to Pharmacy Electronically, [facility], Partial fill upon patient request if the prescription is for a schedule II opioi... Start Date: 11/06/21 Status: Ordered clonazePAM 0.5 mg oral tablet 0.5 tablet = 0.25 mg, By Mouth, Daily, PRN Anxiety, # 15 tablet, 1 Refills, Maintenance, 11/06/21 11:43:00 EST, Tablet, [facility], Partial fill upon patient request if the prescriptionis for a schedule II opioid drug., 155, cm, ... Start Date: 11/06/21 Stop Date: 01/05/22 Status: Ordered dicyclomine 20 mg oral tablet 1 tablet = 20 mg, By Mouth, 2 times a day, # 60 tablet, 0 Refills, Maintenance, 11/06/21 11:49:00 EST, Tablet, [facility], Partial fill upon patient request if the prescription is for aschedule II opioid drug., 155, cm, 09/03/21 8:09:00... Start Date: 11/06/21 Status: Ordered digoxin 0.125 mg oral tablet 125 mcg, 1, tablet, By Mouth, Daily, # 30 tablet, Refills 1, Tot. Refills 1, Maintenance, 12/28/21 8:43:00 EDT, [id number] Partial fill upon patient requestif the [...] each, 0 Refills, Maintenance, 11/06/2210:50:00 EST, Injection, [facility], Partial fill upon patient [...] 0 Refills, Maintenance, 11/29/21 15:19:00 EST, Solution, [facility], Partial fill upon patient [...] 12/16/21 15:33:00 EDT, Route to Pharmacy Electronically, [facility], Partial fill upon patient request [...] 11/06/21 11:44:00 EST, Route to Pharmacy Electronically, [facility], Partial fill uponpatient request if the prescription is for a schedu... Start Date: 11/06/21 Status: Ordered Symbicort 80mcg/4.5mcg Inhaler 2, puffs, Inhalation, 2 times a day, # 1 each, Refills 0, Tot. Refills 0, Maintenance, 11/06/21 11:43:00 EST, Inhaler, Route to Pharmacy Electronically, [id number][facility], 155, cm, 09/03/21 8:09:00 EST, Hei... Start Date: 11/06/21 Status: Ordered traZODone 50 mg oral tablet 50 mg, 1, tablet, By Mouth, Daily at bedtime, # 30 tablet, Refills 0, Tot. Refills 0, Maintenance, 11/06/21 11:44:00 EST, Route to Pharmacy Electronically, [facility], Partial fill uponpatient request [...]
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
--- OUTSIDE RECORDS SUMMARY | 2023-07-13 20:38 | XMS_ITS | Continuity of Care Document ---
Author Name Unknown Organization [facility] ter Address [address] [place] [id number]- Care Team Providers Care Supervisor Plate Forming Name Role Phone Conrado PAUL, Bob Luis Primary Care Physic lisa Encounter [facility] Date(s): 11/01/21 - 11/06/[address] [id number]- Encounter Diagnosis Chest pain(Final) - 11/02/21 Dysuria(Final) - 11/02/21 Dilation of common bile duct(Final) - 11/02/21 UTI symptoms(Final) - 11/02/21 Discharge Disposition: A-D/C Home Attending Physician: Trae Garcia MD, Mau Knox Admitting Physician: Olaf Knox MD Referring Physician: [...] without difficulty, tolerated well 2Result Comment: lot #[id number] 10/03/06 Medications amitriptyline 25 mg oral tablet 25 mg, 1, tablet, By Mouth, Daily at bedtime, Maintenance, 09/01/21 15:50:00 EST, ; Start Date: 09/01/21 Status: Ordered aspirin 81 mg oral delayed release tablet 81 mg, 1, tablet, By Mouth, Daily, # 30 tablet, Refills 1, Tot. Refills 1, Maintenance, 11/06/21 11:43:00 EST, Route to Pharmacy Electronically, [facility], Partial fill upon patient request if the prescription is for a schedule II opioi... Start Date: 11/06/21 Status: Ordered clonazePAM 0.5 mg oral tablet 0.5 tablet = 0.25 mg, By Mouth, Daily, PRN Anxiety, # 15 tablet, 1 Refills, Maintenance, 11/06/21 11:43:00 EST, Tablet, [facility], Partial fill upon patient request if the prescriptionis for a schedule II opioid drug., 155, cm, ... Start Date: 11/06/21 Stop Date: 01/05/22 Status: Ordered dicyclomine 20 mg oral tablet 1 tablet = 20 mg, By Mouth, 2 times a day, # 60 tablet, 0 Refills, Maintenance, 11/06/21 11:49:00 EST, Tablet, [facility], Partial fill upon patient request if the prescription is for aschedule II opioid drug., 155, cm, 09/03/21 8:09:00... Start Date: 11/06/21 Status: Ordered digoxin 0.125 mg oral tablet 125 mcg, 1, tablet, By Mouth, Daily, # 30 tablet, Refills 0, Tot. Refills 0, Maintenance, 11/06/21 11:50:00 EST, Route to Pharmacy Electronically, [facility], Partial fill upon patient request if the prescription is for a schedule II opi... Start Date: 11/06/21 Status: Ordered Dilaudid Inj 0.5 mg, Injection, IV Push Slowly, Every 4 hours, PRN for Pain , Severe, Routine, 11/04/21 12:36:00EST Start Date: 11/04/21 Stop Date: 11/07/21 Status: Discontinued duloxetine 60 mg oral enteric coated capsule [...] each, 0 Refills, Maintenance, 11/06/2210:50:00 EST, Injection, [facility], Partial fill upon patient request if the prescription is for a schedule II opioid drug., 155, cm, 12... Start Date: 11/06/21 Status: Ordered levETIRAcetam 750 mg oral tablet 1 tablet = 750 mg, By Mouth, 2 times a day Start Date: 06/30/21 Status: Ordered levothyroxine 0.05 [...] 09/01/21 Status: Ordered oxyCODONE 5 mg oral capsule 1 capsule = 5 mg, By Mouth, Every 6 hours, PRN for pain, for 7 days, # 28 capsule, 0 Refills, Acute11/13/21 11:45:00 EST, 11/06/21 11:45:00 EST, Capsule, [facility], Partial fill upon patient request if the prescription is for a schedul... Start Date: 11/06/21 Stop Date: 11/13/21 Status: Ordered ProAir HFA 90 mcg/inh inhalation [...] 11/06/21 11:44:00 EST, Route to Pharmacy Electronically, [facility], Partial fill uponpatient request if the prescription is for a schedu... Start Date: 11/06/21 Status: Ordered Symbicort 80mcg/4.5mcg Inhaler 2, puffs, Inhalation, 2 times a day, # 1 each, Refills 0, Tot. Refills 0, Maintenance, 11/06/21 11:43:00 EST, Inhaler, Route to Pharmacy Electronically, [id number], [facility], 155, cm, 09/03/21 8:09:00 EST, Hei... Start Date: 11/06/21 Status: Ordered traZODone 50 mg oral tablet 50 mg, 1, tablet, By Mouth, Daily at bedtime, # 30 tablet, Refills 0, Tot. Refills 0, Maintenance, 11/06/21 11:44:00 EST, Route to Pharmacy Electronically, [facility], Partial fill uponpatient request if the prescription is for a schedu... Start Date: 11/06/21 Status: Ordered Problem List Condition Effective Dates [...] Reports Name Date Urine Culture (URINE CULTURE) 11/02/21 Microbiology Reports TEST:Urine Culture STATUS:Auth (Verified) BODY SITE: SOURCE:URINE COLLECTED DATE/TIME:11/02/21 2:18 AM Urine Culture SPECIMEN DESCRIPTION : URINE SPECIAL REQUESTS : NONE CULTURE : >100,000 COL/ML ESCHERICHIA COLI REPORT STATUS : FINAL 11/04/2021 ORGANISM >100,000 COL/ML ESCHERICHIA COLI METHOD MIN. INHIB. CONC. (MCG/ML) AMPICILLIN SUSCEPTIBLE AMPICILLIN/SULBACTAM SUSCEPTIBLE AMOXICILLIN/CLAVULAN SUSCEPTIBLE CEFAZOLIN SUSCEPTIBLE CEFEPIME SUSCEPTIBLE CEFTRIAXONE SUSCEPTIBLE CIPROFLOXACIN SUSCEPTIBLE ERTAPENEM SUSCEPTIBLE GENTAMICIN SUSCEPTIBLE LEVOFLOXACIN SUSCEPTIBLE MEROPENEM SUSCEPTIBLE NITROFURANTOIN SUSCEPTIBLE PIPERACILLIN/TAZOBAC SUSCEPTIBLE TRIMETH/SULFAMETHOX SUSCEPTIBLE TETRACYCLINE SUSCEPTIBLE Radiology Reports * Exam Date Time Procedure Performing Provider Status 11/02/21 1:07 AM Chest 2 Views Frontal and Lat Summer Simpson; Auth (Verified) Notes: (Chest 2 Views Frontal and Lat) Reason For Exam: Shortness of Breath, Fever;Other: RESULT: Chest 2 Views Frontal and Lat Chest 2 Views Frontal and Lat Hx of Present Illness: pt with multiple concerns today.. CP x 3 days, radiates to L shoulder per pt.. dizziness... nausea... BRB in emesis... my kidneys hurt pt states foul smelling urine, burning sensation; Reason: Other:; Shortness of Breath, Fever; Clinical Question(s): Pneumonia; Order Comment: COMPARISON: 08/30/2021, 06/30/2021, 07/08/2020 FINDINGS: LINES AND TUBES: None. LUNGS AND PLEURA: Clear lungs. Normal pulmonary vascularity. No pleural effusion. Stable elevation of the right hemidiaphragm with chronic blunting of the rightcostophrenic sulcus likely representing pleural reaction/scarring. No pneumothorax. HEART, MEDIASTINUM AND ALEXUS: Heart is normal in size. Normal upper mediastinal and hilar contour. BONES AND SOFT TISSUES: No acute abnormality. IMPRESSION: No acute abnormality. WSN: [id number] Ordering Physician: Nelly Ny Dictated By: Kaitlin Amaya MD Dictated Date/Time: 11/02/21 7:46 am Reviewed By: Kaitlin Amaya MD Signed By: Kaitlin Amaya MD Signed Date/Time: 11/02/21 7:46 am Transcribed By: MARIA Transcribed Date/Time: 11/02/21 7:44 am Vital Signs Most recent to oldest [Reference Range]: 1 2 3 Oxygen Saturation [94-100 %] 100 % (11/06/21 11:33 AM) 98 % (11/06/21 7:46 AM) 96 % (11/06/21 4:00 AM) Pulse Rate [55-90 bpm] 74 bpm (11/06/21 11:33 AM) 84 bpm (11/06/21 7:46 AM) 60 bpm (11/06/21 4:00 AM) Blood Pressure [90-138/55-84 mm Hg] 101/67mm Hg (11/06/21 11:33 AM) 113/63mm Hg (11/06/21 7:46 AM) 96/64mm Hg (11/06/21 4:00 AM) Respiratory Rate [16-30 br/min] 18 br/min (11/06/21 12:00 PM) 18 br/min (11/06/21 11:33 AM) 20 br/min (11/06/21 11:30 AM) Temperature [96.8-100.4 DegF] 98.3 DegF (11/06/21 11:33 AM) 97.8 DegF (11/06/21 7:46 AM) 97.6 DegF (11/06/21 4:00 AM) Mode of Delivery (Oxygen) Room air (11/06/21 11:33 AM) Room air (11/06/21 7:46 AM) Room air (11/06/21 4:00 AM) Blood pressure sites Arm, right (11/06/21 11:33 AM) Arm, right (11/06/21 7:46 AM) Arm, right (11/06/21 4:00 AM) Temperature Route Oral (11/06/21 11:33 AM) Oral (11/06/21 7:46 AM) Oral (11/06/21 4:00 AM) Social History Social History Type Response Smoking Status Never (less than 100 in lifetime) entered on: 11/14/18 Sex
--- OUTSIDE RECORDS SUMMARY | 2023-07-13 20:38 | XMS_ITS | Continuity of Care Document ---
Author Name Unknown Organization [facility] Address [address] [place] [address]- Care Team Providers Care Collection Systems Foreman Name Role Phone Not on Staff, PCP Primary Care Physician Unavail able [place] [facility] [place] [facility] [address] [place] [id number]- [facility] Allergies, Adverse Reactions, Alerts Substance Reaction Severity [...] without difficulty, tolerated well 2Result Comment: lot #[id number] exp 10/03/06 Medications amitriptyline 25 mg oral [...] Acute 04/30/20 8:17:00 EDT, 04/23/20 8:17:00 EDT, [facility], 156, cm, 04/23/20 7:59:00 [...]
--- OUTSIDE RECORDS SUMMARY | 2023-07-13 20:39 | XMS_ITS | Continuity of Care Document ---
Author Name Unknown Organization [facility] ter Address [address] [place] [id number]- Care Team Providers Care Spring Inspector Name Role Phone Conrado PAUL, Bob Luis Primary Care Physic lisa Encounter [facility] Date(s): 08/31/21 - 09/03/[address] [address]- Encounter Diagnosis Bronchiolitis(Final) - 09/02/21 Discharge Disposition: A-D/C Home Attending Physician: Cesar Parsons MD Admitting Physician: Sophie PAUL, Ethel Galvez Referring Physician: Not on Staff, Referring MD [...] without difficulty, tolerated well 2Result Comment: lot #[id number] exp 10/03/06 Medications acyclovir 400 mg oral tablet = 400 mg, By Mouth, 3 times a day, 1 dose during the evening 09/03/21 and then 3 times a day until 09/07 (you will only have 2 doses this day), # 12 tablet, 0 Refills, Acute 09/07/21 15:00:00 EST, 09/03/21 13:56:00 EST, Tablet, [facility] Start Date: 09/03/21 Stop Date: 09/07/21 Status: Ordered amitriptyline 25 mg oral tablet 25 mg, 1, tablet, By Mouth, Daily at bedtime, Maintenance, 09/01/21 15:50:00 EST, ; Start Date: 09/01/21 Status: Ordered aspirin 81 mg oral delayed release tablet 81 mg, 1, tablet, By Mouth, Daily, Refills 0, Maintenance, 09/26/19 15:04:00 EST Start Date: 09/26/19 Status: Ordered clonazePAM 0.5 mg oral tablet 0.5 tablet = 0.25 mg, By Mouth, Daily, PRN Anxiety, 0 Refills, Maintenance, 09/03/21 13:37:00 EST, Tablet, Partial fill upon patient request if the prescription is for a schedule II opioid drug. Start Date: 09/03/21 Status: Ordered cyanocobalamin 100 mcg oral tablet 100 mcg, 1, tablet, By Mouth, Daily, # 30 tablet, Refills 0, Tot. Refills 0, Maintenance, 09/03/21 13:55:00 EST, Route to Pharmacy Electronically, [facility], Partial fill upon patient request if the prescription is for a schedule II opi... Start Date: 09/03/21 Status: Ordered dicyclomine 20 mg oral tablet 1 tablet = 20 mg, By Mouth, 2 times a day, Maintenance, 09/01/21 15:54:00 EST, ; Start Date: 09/01/21 Status: Ordered digoxin 0.125 mg oral tablet 125 mcg, 1, tablet, By Mouth, Daily, Maintenance, 09/01/21 15:56:00 EST, ; Start Date: 09/01/21 Status: Ordered digoxin 0.125 mg oral tablet 0.125 mg, Tablet, By Mouth, 09/03/21 16:00:00 EST Start Date: 09/03/21 Stop Date: 09/03/21 Status: Completed Dilaudid Inj 0.5 mg, Injection, IV Push Slowly, Every 12 hours, PRN for Pain , Severe, Routine, 09/01/21 12:03:00 EST Start Date: 09/01/21 Stop Date: 09/04/21 Status: Discontinued duloxetine 60 mg oral enteric coated capsule 1 capsule = 60 mg, By Mouth, Daily, # 30 capsule, 0 Refills, Maintenance, 09/03/21 13:33:00 EST, ECCapsule, Partial fill upon patient request if the prescription is for a schedule II opioid drug. Start Date: 09/03/21 Status: Ordered enoxaparin 30 mg/0.3 mL injectable solution = 30 mg, Subcutaneous Injection, Every 12 hours, # 14 each, 0 Refills, Maintenance, 09/03/21 8:27:00 EST, Partial fill upon patient request if the prescription is for a schedule II opioid drug. Start Date: 09/03/21 Status: Ordered levETIRAcetam 750 mg oral tablet [...] hours, PRN for Pain , Moderate, Routine, 08/31/21 19:43:00 EST Start Date: 08/31/21 Stop Date: 09/04/21 Status: Discontinued oxyCODONE 5 mg oral tablet 5 mg, 1, tablet, By Mouth, Every 4 hours, PRN, # 30 tablet, Refills 0, Tot. Refills 0, Acute 09/10/21 21:00:00 EST, Pain , Moderate, 09/03/21 13:59:00 EST, Route to Pharmacy Electronically, [facility], Partial fill upon patient request i... Start Date: 09/03/21 Stop Date: 09/10/21 Status: Ordered predniSONE 20 mg oral tablet 2 tablet = 40 mg, By Mouth, Daily in AM, Take first dose 09/04/21, # 3 tablet, 0 Refills, Acute 09/06/21 10:00:00 EST, 09/03/21 13:56:00 EST, Tablet, [facility], Partial fill upon patient request if the prescription is for a schedule II... Start Date: 09/03/21 Stop Date: 09/06/21 Status: Ordered ProAir HFA 90 mcg/inh inhalation [...] By Mouth, Daily at bedtime, Maintenance, 09/01/21 15:58:00 EST, ; Start Date: 09/01/21 Status: Ordered Symbicort 80mcg/4.5mcg Inhaler 2, puffs, Inhalation, 2 times a day Start Date: 06/30/21 Status: Ordered traZODone 50 mg oral tablet 50 mg, 1, tablet, By Mouth, Daily at bedtime, Refills 0, Maintenance, 09/01/21 15:51:00 EST, ; Start Date: 09/01/21 Status: Ordered Problem List Condition Effective Dates [...] Exam Date Time Procedure Performing Provider Status 08/30/21 9:51 PM Chest Portable Jeanie Ibanez; Auth (V erified) Notes: (Chest Portable) Reason For Exam: Chest Pain;Other: RESULT: Chest Portable Chest Portable Hx of Present Illness: pt reports SOB x1 month since testing positive for covid. also reports on going abd pain and nausea since bowel resction. unable to take seizure meds bc of increased nausea x3 days. daught reports siezure today; Reason: Other:; Chest Pain; Clinical Question(s): Other: COMPARISON: 06/30/2021 FINDINGS: LINES AND TUBES: None. LUNGS AND PLEURA: Blunting/elevation of the right hemidiaphragm similar to the previous exam. Lungs appear otherwise clear. No pneumothorax. HEART, MEDIASTINUM AND ALEXUS: Heart is normal in size. Normal upper mediastinal and hilar contour. BONES AND SOFT TISSUES: No acute abnormality. IMPRESSION: No acute abnormality. WSN: [id number] Ordering Physician: Rashi Melo Dictated By: Adriel Hdz MD Dictated Date/Time: 08/30/21 10:10 p Reviewed By: Adriel Hdz MD Signed By: Adriel Hdz MD Signed Date/Time: 08/30/21 10:10 pm Transcribed By: CSB Transcribed Date/Time: 08/30/21 10:09 pm Vital Signs Most recent to oldest [Reference Range]: 1 2 3 Height 155 cm (09/03/21 8:09 AM) 155 cm (09/02/21 8: PM) 155 cm (09/01/21 6:50 PM) Weight 58.2 kg (09/01/21 6:50 PM) Oxygen Saturation [94-100 %] 93 % *L* (09/03/21 8:09 AM) 94 % (09/02/21 8: PM) 100 % (09/02/21 9:00 AM) Pulse Rate [55-90 bpm] 70 bpm (09/03/21 3:09 PM) 66 bpm (09/03/21 8:09 AM) 70 bpm (09/02/21 8: PM) Body Mass Index [18.5-24.99] 24.22 (09/01/21 6:50 PM) Blood Pressure [90-138/55-84 mm Hg] 101/56mm Hg (09/03/21 8:09 AM) 97/54mm Hg (09/02/21 8:21 PM) 91/51mm Hg (09/02/21 9:00 AM) Respiratory Rate [16-30 br/min] 16 br/min (09/03/21 12:36 PM) 16 br/min (09/03/21 10:26 AM) 19 br/min (09/03/21 8:09 AM) Temperature [96.8-100.4 DegF] 97.8 DegF (09/03/21 8:09 AM) 98.2 DegF (09/02/21 8: PM) 97.5 DegF (09/02/21 9:00 AM) Liters per Minute 2 L/min (09/02/21 9:00 AM) 2 L/min (09/01/21 7:00 PM) 2 L/min (09/01/21 4:18 PM) Mode of Delivery (Oxygen) Room air (09/03/21 8:09 AM) Room air (09/02/21 8:21 PM) Nasal cannula (09/02/21 9:00 AM) Blood pressure sites Arm, left (09/03/21 8:09 AM) Arm, left (09/02/21 8:21 PM) Arm, left (09/02/21 9:00 AM) Temperature Route Oral (09/03/21 8:09 AM) Oral (09/02/21 8:21 PM) Oral (09/02/21 9:00 AM) Dry Weight 58.2 kg (09/01/21 6:50 PM) Social History Social History Type Response Smoking Status Never (less than 100 in lifetime) entered on: 11/14/18 Sex
--- OUTSIDE RECORDS SUMMARY | 2023-07-13 20:39 | XMS_ITS | Continuity of Care Document ---
Author Name Unknown Organization [facility] ter Address [address] [place] [address]- Care Team Providers Care Operations Label Clerk Name Role Phone Not on Staff, PCP Primary Care Physician Unavail able [place] [facility] [place]/23/20 - 04/24/[address] [address]- [facility] Discharge Disposition: A-D/C Walkout Attending Physician: Not on Staff, Attending MD [...] without difficulty, tolerated well 2Result Comment: lot #[id number] 10/03/06 Medications acetaminophen 500 mg oral [...] Acute 04/30/20 8:17:00 EDT, 04/23/20 8:17:00 EDT, [facility], 156, cm, 04/23/20 7:59:00 [...] 04/26/20 8:02:00 EDT, 04/23/20 8:02:00 EDT, Tablet, [facility], Partial fillupon patient request, [...] 3 Oxygen Saturation [94-100 %] 100 % (04/24/20 6:12 AM) 100 % (04/24/20 12:23 AM) 100 % (04/23/20 11:50 PM) Pulse Rate [55-90 bpm] 90 bpm (04/24/20 6:12 AM) 95 bpm *H* (04/24/20 12:23 AM) 101 bpm *H* (04/23/20 11:50 PM) Blood Pressure [90-138/55-84 mm Hg] 116/62mm Hg (04/24/20 6:12 AM) 101/69mm Hg (04/24/20 12:23 AM) 102/62mm Hg (04/23/20 11:50 PM) Respiratory Rate [16-30 br/min] 18 br/min (04/24/20 6:12 AM) 16 br/min (04/24/20 12:23 AM) 19 br/min (04/23/20 11:50 PM) Temperature [96.8-100.4 DegF] 97.9 DegF (04/24/20 6:12 AM) 97.8 DegF (04/24/20 12:23 AM) 98.5 DegF (04/23/20 11:50 PM) Mode of Delivery (Oxygen) room air (04/24/20 6:12 AM) Room air (04/24/20 12:23 AM) Room air (04/23/20 11:50 PM) Blood pressure sites Arm, right (04/24/20 6:12 AM) Arm, left (04/24/20 12:23 AM) Arm, left (04/23/20 11:50 PM) Temperature Route Oral (04/24/20 6:12 AM) Oral (04/24/20 12:23 AM) Oral (04/23/20 11:50 PM) Social History Social History Type Response Smoking Status Never (less than 100 in lifetime) entered on: 11/14/18 Sex
--- OUTSIDE RECORDS SUMMARY | 2023-07-13 20:39 | XMS_ITS | Continuity of Care Document ---
Author Name Unknown Organization [facility] Address [address] [place] [id number]- Care Team Providers Care Pharmacy Tech Name Role Phone Bryson Wright MD Primary Care Physician Encounter [facility] Date(s): 06/01/23 - 07/01/23 [facility] [address] [place] [id number]- Attending Physician: AdmVal nino Admitting Physician: Admtr, Val Referring Physician: Admtr, Ar8 Allergies, Adverse Reactions, [...] inactivated 2 10/03/06 Gi juanita SARS-CoV-2 mRNA (udibpgy-bvtw-hdodl) vax 02/25/22 Given SARS-CoV-2 mRNA (atmarmz-gzor-pogks) vax 3 12/11/21 Given pneumococcal 13-valent vaccine 05/07/20 Recorded Zoster Vaccine Live 12/30/18 Recorded zoster vaccine, inactivated 06/15/18 Recorded Tet/diphth/pertussis, acel (oldterm) 03/19/12 Give n influ virus vac, H1N1, inactive(oldterm) 10/24/09 Given Pneumococcal Poly (PPV23) (oldterm) 06/14/06 Given Pneumococcal Vaccine (oldterm) 06/14/06 Given 1Admin Note: given without difficulty, tolerated well 2Result Comment: lot #[id number] exp 10/03/06 3Early/Late Reason: Early/Late Reason: Med Not Available Medications Carafate 1 gm oral tablet 1 Gm, 1, tablet, By Mouth, 3 times a day before meals and bedtime, # 56 tablet, Refills 0, Tot. Refills 0, Maintenance, 03/06/23 9:28:00 EDT, Route to Pharmacy Electronically, [facility], Partial fill upon patient request if the prescrip... Start Date: 03/06/23 Stop Date: 03/20/23 Status: Ordered dicyclomine 20 mg oral tablet 1 tablet = 20 mg, By Mouth, 2 times a day, # 60 tablet, 0 Refills, Maintenance, 11/06/21 11:49:00 EST, Tablet, [facility], Partial fill upon patient request if the prescription is for aschedule II opioid drug., 155, cm, 09/03/21 8:09:00... Start Date: 11/06/21 Status: Ordered digoxin 0.125 mg oral tablet 1, tablet, By Mouth, Daily, # 30 tablet, Refills 1, Route to Pharmacy Electronically, [id number], 156, cm, 03/01/22 4:19:00 EDT, Height, 55.2, [...] 0 Refills, Maintenance, 11/29/21 15:19:00 EST, Solution, [facility], Partial fill upon [...] Refills, Maintenance, 03/01/22 9:50:00 EDT, Tablet, [id number], Partial fill upon patient request if [...] Maintenance, 11/06/19 15:20:00 EST, Aerosol Start Date: 2/13/20 Status: Ordered Rolling Walker Rolling Walker, See [...] 11/06/21 11:44:00 EST, Route to Pharmacy Electronically, [facility], Partial fill uponpatient request if the prescription is for a schedu... Start Date: 11/06/21 Status: Ordered Symbicort 80mcg/4.5mcg Inhaler 2, puffs, Inhalation, 2 times a day, # 1 each, Refills 0, Tot. Refills 0, Maintenance, 11/06/21 11:43:00 EST, Inhaler, Route to Pharmacy Electronically, [id number], [facility], 155, cm, 09/03/21 8:09:00 EST, Hei... Start Date: 11/06/21 Status: Ordered traZODone 50 mg oral tablet 50 mg, 1, tablet, By Mouth, Daily at bedtime, # 30 tablet, Refills 0, Tot. Refills 0, Maintenance, 11/06/21 11:44:00 EST, Route to Pharmacy Electronically, [facility], Partial fill uponpatient request [...] 100 in lifetime);Never entered on: 02/24/22 Sex Laboratory * Event Display: Laboratory Result Scanned Authored Date: Patient Care team information Care Team Personnel Name: Sophie Crane RN Position: [facility] RN Member Role: Primary Care Nurse Name: Bryson Wright MD Position: Reference Physician Member Role: PCP Address: Address: [address] [place] [address] [place] [address] Name: Honorio Boudreaux RN Position: [facility] RN Member Role: Primary Care Nurse Name: Omid Rodriguez RN Position: [facility] RN Member Role: Primary Care Nurse Name: Kat Wagner RN Position: [facility] OB RN Member Role: Primary Care Nurse Name: Jay Reich RN Position: [facility] RN Member Role: Primary Care Nurse Name: Mónica Montanez RN Position: [facility] SN RN Member Role: Primary Care Nurse Name: Yamilet Jack RN Position: [facility] RN Member Role: Primary Care Nurse Name: Jenni Crabtree RN Position: [facility] RN Member Role: Primary Care Nurse Name: Socorro Gilbert RN Position: [facility] SN RN Member Role: Primary Care Nurse Name: Delbert Coyne RN Position: [facility] RN Member Role: Primary Care Nurse Name: Lisa Deutsch RN Position: [facility] SN Cupola Mechanic Member Role: Primary Care Nurse Name: Kari Grant RN Position: [facility] RN Member Role: Primary Care Nurse Name: Rubin Alberto RN Position: [facility] RN Member Role: Primary Care Nurse Name: Sunil Crowley RN Position: [facility] RN Member Role: Primary Care Nurse Name: Long Bravo Position: [facility] RN Member Role: Primary Care Nurse Name: Georgie Kruse RN Position: [facility] RN Member Role: Primary Care Nurse Name: Renu Azar RN Position: [facility] Onco RN Member Role: Primary Care Nurse Name: Noah Mccann RN Position: [facility] RN Member Role: Primary Care Nurse Name: Jamila Neil Position: [facility] RN Member Role: Primary Care Nurse Name: Juliana Rehman RN Position: [facility] RN Member Role: Primary Care Nurse Name: Aide Lockett RN Position: [facility] RN Member Role: Primary Care Nurse Name: Balbina Lafleur RN Position: [facility] RN Member Role: Primary Care Nurse Name: Alexa Gomez RN Position: [facility] RN Member Role: Primary Care Nurse Name: Genesis Stewart NP Position: [facility] PCO Associate Professional Member Role: Primary Care Nurse Name: Maribel Dc RN Position: [facility] RN Darby Member Role: Primary Care Nurse Name: Sara Guevara RN Position: [facility] RN Member Role: Primary Care Nurse Name: Georgie Shirley RN Position: [facility] RN Member Role: Primary Care Nurse Name: Saniya Raines RN Position: [facility] RN Member Role: Primary Care Nurse Name: Jenifer Conway RN Position: [facility] RN Member Role: Primary Care Nurse Name: Tori Sanchez RN Position: [facility] RN Member Role: Primary Care Nurse Name: Syl Taylor NP Position: [facility] Associate Professional Member Role: Primary Care Nurse Address: Address: [address] [place] [address] [facility] [place] [address]- Name: Johana Quintana RN Position: [facility] RN Member Role: Primary Care Nurse Name: Juliana Daniels RN Position: [facility] RN Member Role: Primary Care Nurse Name: Karla Ferrell RN Position: [facility] RN Member Role: Primary Care Nurse Name: Carmen Alvarado RN Position: [facility] SN RN Member Role: Primary Care Nurse Name: Leonela Huerta RN Position: [facility] RN Member Role: Primary Care Nurse Name: Ryan Moreno RN Position: [facility] RN Member Role: Primary Care Nurse Name: Nadya Perales RN Position: [facility] RN Member Role: Primary Care Nurse Name: Jenn Worley LPN Position: [facility] RN Member Role: Primary Care Nurse Name: Kaye Murrieta RN Position: [facility] RN Member Role: Primary Care Nurse Care Team Related Persons Name: RYAN FELIZ Address: [facility] Name: GAVIN FELIZ Name: MICHAEL SPRING Address: home [address] [address] Name: TANGELA SPRING Address: [address] [place] [address] Name: PARISH SANTO Address: [address] [place] [address]
[2023-07-13 20:46] LABS: Erythrocyte Sedimentation Rate 11 MM/HR (0-20)
--- NOTE | 2023-07-13 21:49 | PM.IMHP ---
History of Present Illness Date of Service: 07/13/23 Chief Complaint: UTI This is a 67-year-old female with pertinent history of neurogenic bladder who self caths, paroxysmal atrial fibrillation on anticoagulation, mood disorder, seizure disorder, hypothyroidism, gastroesophageal reflux disease, COPD not on home oxygen who presents to the emergency department for evaluation of dysuria. Patient states her symptoms have been ongoing for the last 1 week. She has been having dysuria and needing to self-catheterize with increasing frequency. Also has been having left back pain. Admits chills. Does have a history of UTI and was previously treated with IV gentamicin and discharged on p.o. tobramycin. Patient was seen by her PCP on the day of presentation and UA was done which was concerning for UTI. Patient reports anaphylactic allergies to multiple p.o. medications and was asked to come to the ER. Does have a history of colon cancer status post surgery and colostomy. No chest discomfort, palpitations, shortness of breath, abdominal pain In the emergency department, noted UA obtained by PCP which is consistent with UTI Review of Systems Constitutional: Constitutional: Reports fatigue and Reports lethargy Cardiovascular: Cardiovascular: Reports no additional cardiovascular complaints Respiratory: Respiratory: Reports no additional respiratory complaints Gastrointestinal: Gastrointestinal: Reports no additional gastrointestinal complaints Genitourinary: Genitourinary: Reports dysuria and Reports urinary urgency Endocrine: Endocrine: Reports fatigue [facility] Medical History Primary cancer of foot Pulmonary embolism Degenerative cervical disc Lumbar disc disease Celiac disease Pure hypercholesterolemia Epilepsy Hypothyroidism COPD (chronic obstructive pulmonary disease) Pseudoseizure Conversion disorder Colon cancer Paroxysmal A-fib Allergy to multiple drugs Deep vein thrombosis Family History Mother CAD (coronary artery disease) Other Mental health disorder Surgical History History of arthroplasty History of hysterectomy (~1979) Hx of cholecystectomy S/P IVC filter History of partial surgical removal of colon History of partial gastrectomy History of colectomy History of colostomy reversal History of bladder surgery History of sinus surgery History of facial surgery History of colonoscopy Social History Household Members: Other Household Members Other:: 3 roommates Housing: House Do you presently have visiting nurse or other home services: Yes Alcohol intake: former Patient Tobacco Use Status: Never used Tobacco Smoked in Last 30 Days: No e-Cigarette/Vaping Use: Never Used Second Hand Smoke Exposure: Yes Use of substances other than those prescribed or required for medical reasons: No Advance Directives: No service: No Current occupational status: disabled Cognitive needs: Yes (cane) Hearing needs: No Vision needs: Yes (Glasses) Meds Allergies Allergy/AdvReac Type Severity Reaction Status Date / Time erythromycin base Allergy Severe Anaphylaxis Verified 07/13/23 10:05 [ERYTHROMYCIN BASE] levofloxacin [From Levaquin] Allergy Severe Anaphylaxis Verified 07/13/23 10:05 Penicillins [PCN] Allergy Severe Anaphylaxis Verified 07/13/23 10:05 seafood Allergy Severe Anaphylaxis Verified 07/13/23 10:05 Sulfa (Sulfonamide Allergy Severe Anaphylaxis, Verified 07/13/23 10:05 Antibiotics) vomiting [SULFA (SULFONAMIDE ANTIBIOTICS)] Tetracyclines Allergy Severe Anaphylaxis Verified 07/13/23 10:05 divalproex sodium [Depakote] Allergy Unknown altered Verified 07/13/23 10:05 mental status gluten [GLUTEN] Allergy Unknown BLOATING,RA Verified 07/13/23 10:05 SH rice Allergy Unknown Verified 07/13/23 10:05 Active Medications: Current Medications Sodium Chloride (Ns) 1,000 mls @ 999 mls/hr IV .Q1H1M STA Stop: 07/13/23 22:37 Home Medications Medication Instructions Recorded Confirmed Last Taken Type pantoprazole 40 mg tablet,delayed 40 mg PO DAILY 12/22/21 07/05/23 01/06/22 History release amitriptyline 25 mg tablet 1 tab PO BEDTIME 01/07/22 07/05/23 01/06/22 History cholestyramine (with sugar) 4 gram 1 packet PO BID 01/07/22 07/05/23 01/06/22 History powder for susp in a packet diphenhydramine HCl 25 mg tablet 50 mg PO BEDTIME 01/07/22 07/05/23 01/06/22 History (Banophen) folic acid 1 mg tablet 1 tab PO DAILY 01/07/22 07/05/23 01/06/22 History loperamide 2 mg capsule 2 mg PO NEEDED PRN Diarrhea 01/07/22 07/05/23 01/06/22 History magnesium oxide 400 mg (241.3 mg 1 tab PO BID 01/07/22 07/05/23 01/06/22 History magnesium) tablet multivitamin-ferrous 1 tab PO DAILY 01/07/22 07/05/23 01/06/22 History fumarate-folic acid 18 mg-400 mcg tablet (Certavite-Antioxidant) oxybutynin chloride 5 mg tablet 1 tab PO BID 01/07/22 07/05/23 01/06/22 History potassium chloride 10 mEq 1 tab PO BID 01/07/22 07/05/23 01/06/22 History tablet,extended release(part/cryst) thiamine HCl (vitamin B1) 100 mg 1 tab PO DAILY 01/07/22 07/05/23 01/06/22 History tablet (Vitamin B-1) trazodone 50 mg tablet 1 tab PO BEDTIME 01/07/22 07/05/23 01/06/22 History Physical Exam Vital Signs and Narrative: Vital Signs: Last Vital Signs Temp 98 F 07/13/23 17:11 Pulse 97 07/13/23 17:11 Resp 16 07/13/23 17:11 BP 108/68 07/13/23 17:11 Pulse Ox 97 07/13/23 17:11 O2 Del Method Room Air 07/13/23 17:11 BMI result Body Mass Index 22.8 Middle-aged female lying in bed in no distress Neck supple, no JVD Regular rate and rhythm, S1-S2 heard Regular breath sounds bilaterally, no wheezing or crackles appreciated Abdomen with left CVA tenderness, no guarding, no rigidity, no rebound tenderness, colostomy present Patient is awake, alert and oriented to self, place, time and person ; no focal motor deficit Psych: Normal mood No pedal edema Results Labs 07/13/23 18:33 07/13/23 18:33 Labs: Laboratory Results - last 24 hr 07/13/23 18:33 MCV 91.2 MCH 30.5 MCHC 33.4 RDW 13.3 Plt Count 263 MPV 8.8 L Immature Gran % (Auto) 0.2 Neut % (Auto) 45.6 Lymph % (Auto) 42.2 H [place] % (Auto) 9.7 Eos % (Auto) 1.7 Baso % (Auto) 0.6 Lymph # (Auto) 2.0 [place] # (Auto) 0.5 Eos # (Auto) 0.1 Baso # (Auto) 0.0 Abs Immat Gran (auto) 0.01 Absolute Neuts (auto) 2.1 Absolute Nucleated RBC 0.000 Nucleated RBC % (auto) 0.0 ESR 11 Anion Gap 14 Estim Creat Clear Calc 73.5 Estimated GFR > 60 Random Glucose 85 Lactic Acid 1.3 Calcium 9.5 Magnesium 2.0 Total Bilirubin 0.5 AST 24 ALT 18 Alkaline Phosphatase 86 C-Reactive Protein 0.15 Total Protein 6.9 Albumin 4.0 COVID-19 (JEFE) Negative COVID-19 Clin Com See Note Assessment and Plan (1) Acute pyelonephritis: Status: Acute (2) UTI (urinary tract infection): Status: Acute (3) Allergy to multiple antibiotics: Status: Acute Plan This is a 67-year-old female with pertinent history of neurogenic bladder who self caths, paroxysmal atrial fibrillation on anticoagulation, mood disorder, seizure disorder, hypothyroidism, gastroesophageal reflux disease, COPD not on home oxygen who presents to the emergency department for evaluation of dysuria. #. Acute UTI with clinical pyelonephritis: In a patient with neurogenic bladder and self catheterization. Does have a history of multiple anaphylactic allergies to p.o. medications. Reviewed previous cultures and will initiate patient on IV gentamicin. Consulting Infectious Disease, appreciate assistance #. Imaging with dilated pancreatic duct: Obtaining MRCP to delineate anatomy #. Paroxysmal atrial fibrillation: On anticoagulation. Rate controlled in the ER #. Mood disorder: Continue home mood stabilizers #. Seizure disorder: On Keppra #. Hypothyroidism: On Synthroid #. COPD: No exacerbation during admission. Continue home inhalers #. Gastroesophageal reflux disease: On PPI Med rec pending DVT prophylaxis: Flo Admit as inpatient and will require two night minimum hospital stay for IV antibiotics Time Spent With Patient Time: Total time managing care of this patient today ____ minutes. Quality Stroke Does the patient have a stroke diagnosis?: No VTE Prior VTE?: No VTE Risk Level:: Medical - moderate - high VTE Device Contraindication: Treatment Not Indicated VTE Drug Contraindication: N/A - Med Ordered
[2023-07-13 22:46] LABS: Appearance Urine Turbid; Color Urine Yellow; Glucose Urine UA Negative (Negative); Leukocyte Esterase Urine Trace (Negative); Nitrite Urine Positive (Negative); PH 5.5 (5.0-9.0); UMIC TRIGGER UACC YES; Urine Blood Trace (Negative); Urine Ketones Negative (Negative); Urine Protein Negative (Neg-Trace)
[2023-07-13 23:00] VITALS: BP 113/61; PULSE 74; RESP 16; TEMP 36.6; O2SAT 97
[2023-07-13 23:02] LABS: Bacteria Urine 2+ (None Seen); Hyaline Casts Urine 0-2 /LPF (0-2); RBC Urine 0-2 /HPF (0-2); Squamous Epithelial Cell Urine 0-2 /HPF (0-2); UACC Culture Trigger YES
--- NOTE | 2023-07-13 23:02 | MHC.EDTECH ---
THIS PCT JUST ASSUMED CARE OF PT ,VITALS TAKEN ,PT IN PAIN WAITING FOR PAIN MEDS ,RN SIMEON CLEMONS .
[2023-07-13] MEDS: Morphine Sulfate 4 MG/ML CARTRIDGE IVPUSH (23:10)
[2023-07-13] MEDS: ondansetron HCL 4 MG/2 ML VIAL IVPUSH (23:10)
[2023-07-13] MEDS: levETIRAcetam 250 MG TABLET 750 MG PO (23:11)
[2023-07-13] MEDS: 0.9 % Sodium Chloride 1,000 ML 999 ML IV (23:13)
[2023-07-13] MEDS: 0.9 % Sodium Chloride Flush 3 ML SYRINGE IVFLUSH (23:14)
[2023-07-14] VITALS (7 sets, daily range): BP systolic 82–101; BP diastolic 49–61; PULSE 54–73; RESP 16–20; TEMP 35.2–36.4; O2SAT 96–99
[2023-07-14] MEDS: diphenhydrAMINE HCL 50 MG/ML VIAL IVPUSH ×3 (00:28→16:54)
[2023-07-14] MEDS: iohexoL 350 MG/ML 100 ML INFUS..BTL 85 ML IV (00:54)
[2023-07-14] MEDS: HYDROmorphone HCl 1 MG/ML SYRINGE IVPUSH ×5 (02:06→23:50)
[2023-07-14 05:52] LABS: MANUAL DIFF FLAG NO
--- NOTE | 2023-07-14 05:54 | PC.NURSE ---
Assumed care of pt at 0300. Pt resting quietly on phone and watching tv. IV abx running at this time. PT report 6/10 pain and requesting pain medication educated pt on timeframe for pain medication. Call berkowitz within reach. plan of care ongoing
[2023-07-14 05:55] LABS: Basophils Percent Auto 0.7 % (0-2); Eosinophils Absolute Auto 0.1 X10*3/uL (0.0-0.4); Hematocrit 33.3 % (37.0-47.0); Hemoglobin 10.7 g/dl (12.0-16.0); Imm Gran Abs Auto 0.01 X10*3/uL (0.00-0.03); Imm Gran Pct Auto 0.2 % (0.0-0.4); Lymphocytes Absolute Auto 2.2 X10*3/uL (1.2-4.9); Lymphocytes Percent Auto 49.9 % (20-40); Mean Corpuscular HGB Conc 32.1 g/dl (31.0-35.0); Mean Corpuscular Hemoglobin 30.2 pg (27.0-33.0); Mean Corpuscular Volume 94.1 fL (80.0-98.0); Mean Platelet Volume 8.6 fL (9.4-12.3); Monocytes Absolute Auto 0.4 X10*3/uL (0.1-1.2); Monocytes Percent Auto 9.2 % (2-11); Neutrophils Absolute Auto 1.6 x10*3/uL (2.0-8.3); Platelet Count 225 X10*3/uL (160-400); Red Blood Count 3.54 X10*6/uL (4.20-5.50); Red Cell Distribution Width 13.5 % (11.0-16.0); White Blood Count 4.3 X10*3/uL (4.8-10.8)
[2023-07-14 06:18] LABS: Anion Gap 11 (12-20); Blood Urea Nitrogen 12 mg/dL (9-16); Calcium 8.3 mg/dL (8.4-10.2); Carbon Dioxide 23 mmol/L (22-29); Chloride 109 mmol/L (96-108); Creatinine Clr Calc Pharmacy 66.2; Estimated Glomerular Filt Rate > 60; Glucose Random 79 mg/dL (60-115); Potassium 3.8 mmol/L (3.3-5.1); Sodium 139 mmol/L (135-145)
[2023-07-14] MEDS: 0.9 % Sodium Chloride Flush 3 ML SYRINGE IVFLUSH ×2 (09:02→16:54)
--- NOTE | 2023-07-14 09:29 | PHA.MEDREC ---
Pharmacy Consult ? Medication Reconciliation Pharmacy has completed the medication reconciliation. Patient with list at bedside, insisted it was up to date. I asked about the lack of some meds showing up in claim history and she said she recently switched to [facility] but that her list was accurate. Used list pt had per her record.
--- NOTE | 2023-07-14 09:58 | PC.NURSE ---
patient requesting benadryl before being given abt, message sent to provider
[2023-07-14] MEDS: Gentamicin Sulfate/NaCl 80 MG/100 ML PIGGYBACK 100 MG IV ×2 (10:28→17:15)
[2023-07-14] MEDS: levETIRAcetam 250 MG TABLET 750 MG PO ×2 (10:43→20:09)
--- NOTE | 2023-07-14 13:04 | PC.NURSE ---
Reports given to accepting unit. Patient returned from MRI
--- NOTE | 2023-07-14 13:06 | HO.PM.IMPN ---
Subjective Subjective Date of Service: 07/14/23 Interval History: Seen and evaluated feels better still habing pain no fever or chills went to MRI Review of Systems Review of Systems: Yes all other systems are reviewed and are negative Physical Exam Vital Signs: Vital Signs: Last Vital Signs Temp 97.6 F 07/14/23 09:28 Pulse 68 07/14/23 09:28 Resp 20 07/14/23 09:28 BP 82/49 L 07/14/23 09:28 Pulse Ox 97 07/14/23 09:28 O2 Del Method Room Air 07/14/23 09:28 BMI result Body Mass Index 22.8 Const: Other: Constitutional : Awake, interactive, not in distress Neck : Normal inspection, Supple Cardiovascular : RRR, no JVP, no lower extremity edema Respiratory : good bilateral air entry, no crackles, wheezes or rhonchi Gastrointestinal: soft, lax, Normal bowel sounds, Non tender Skin : Warm, Dry Neurological : Alert & oriented x3, No focal deficit Objective Data Active Medications Acetaminophen (Acetaminophen 325 Mg Tablet) 650 mg PO Q6H PRN PRN Reason: Pain, Mild (Pain Scale 1-3) Albuterol Sulfate (Albuterol Sulfate 90 Mcg 8 Gm Inhaler) 2 puff INHALE Q6H PRN PRN Reason: for muscle spasm Amitriptyline HCl (Amitriptyline Hcl 25 Mg Tablet) 25 mg PO BEDTIME [facility] Apixaban (Apixaban 5 Mg Tablet) 5 mg PO BID [facility] Atorvastatin Calcium (Atorvastatin Calcium 20 Mg Tablet) 20 mg PO BEDTIME [facility] Cholestyramine Resin (Cholestyramine (With Sugar) 4 Gm Powd.Pack) 4 gm PO BID [facility] Dicyclomine HCl (Dicyclomine Hcl 10 Mg Capsule) 20 mg PO BID [facility] Digoxin (Digoxin 0.125 Mg Tablet) 0.125 mg PO DAILY [facility] Diphenhydramine HCl (Diphenhydramine Hcl 50 Mg/Ml Vial) 50 mg IVPUSH Q6H PRN PRN Reason: Pre-med Last Admin: 07/14/23 10:26 Dose: 50 mg Documented By: GURPREET Diphenhydramine HCl (Diphenhydramine Hcl 25 Mg Capsule) 50 mg PO BEDTIME [facility] Duloxetine HCl (Duloxetine Hcl 60 Mg Capsule.Dr) 60 mg PO DAILY [facility] Fluticasone/Vilanterol (Fluticasone/Vilanterol 100/25 Blst.W.Dev) 1 puff INHALE RDAILY [facility] Hydromorphone HCl (Hydromorphone Hcl 1 Mg/Ml Syringe) 1 mg IVPUSH Q4H PRN; Protocol PRN Reason: Pain, Severe (Pain Scale 7-10) Last Admin: 07/14/23 08:03 Dose: 1 mg Documented By: GURPREET Gentamicin Sulfate/Sodium Chloride (Garamycin) 80 mg in 100 mls @ 100 mls/hr IV Q8H [facility] Last Infusion: 07/14/23 11:29 Dose: Infused Documented By: GURPREET Levetiracetam (Levetiracetam 250 Mg Tablet) 750 mg PO BID [facility] Last Admin: 07/14/23 10:43 Dose: 750 mg Documented By: GURPREET Levothyroxine Sodium (Levothyroxine Sodium 50 Mcg Tablet) 50 mcg PO DAILY@0600 [facility] Loperamide HCl (Loperamide Hcl 2 Mg Capsule) 2 mg PO DAILY PRN PRN Reason: Diarrhea Loratadine (Loratadine 10 Mg Tablet) 10 mg PO DAILY [facility] Magnesium Oxide (Magnesium Oxide 400 Mg Tablet) 400 mg PO BID [facility] Melatonin (Melatonin 3 Mg Tablet) 6 mg PO BEDTIME PRN PRN Reason: Insomnia Multivitamins/Vitamin C (Multivitamin Tablet) 1 tab PO DAILY [facility] Omeprazole (Omeprazole 20 Mg Capsule.Dr) 20 mg PO DAILY@0630 [facility] Ondansetron HCl (Ondansetron Hcl 4 Mg/2 Ml Vial) 4 mg IVPUSH Q8H PRN PRN Reason: Nausea and Vomiting Oxybutynin Chloride (Oxybutynin Chloride 5 Mg Tablet) 5 mg PO BID [facility] Sodium Chloride (0.9 % Sodium Chloride Flush 3 Ml Syringe) 3 ml IVFLUSH QSHIFT [facility] Last Admin: 07/14/23 09:02 Dose: 3 ml Documented By: GURPREET Thiamine HCl (Thiamine Hcl 100 Mg Tablet) 100 mg PO DAILY [facility] Trazodone HCl (Trazodone Hcl 50 Mg Tablet) 50 mg PO BEDTIME [facility] Labs 07/14/23 05:47 07/14/23 05:47 Labs: Laboratory Results - last 24 hr 07/13/23 07/13/23 07/14/23 18:33 22:37 05:47 MCV 91.2 94.1 MCH 30.5 30.2 MCHC 33.4 32.1 RDW 13.3 13.5 Plt Count 263 225 MPV 8.8 L 8.6 L Immature Gran % (Auto) 0.2 0.2 Neut % (Auto) 45.6 37.0 L Lymph % (Auto) 42.2 H 49.9 H Maries % (Auto) 9.7 9.2 Eos % (Auto) 1.7 3.0 Baso % (Auto) 0.6 0.7 Lymph # (Auto) 2.0 2.2 Maries # (Auto) 0.5 0.4 Eos # (Auto) 0.1 0.1 Baso # (Auto) 0.0 0.0 Abs Immat Gran (auto) 0.01 0.01 Absolute Neuts (auto) 2.1 1.6 L Absolute Nucleated RBC 0.000 0.000 Nucleated RBC % (auto) 0.0 0.0 ESR 11 Anion Gap 14 11 L Estim Creat Clear Calc 73.5 66.2 Estimated GFR > 60 > 60 Random Glucose 85 79 Lactic Acid 1.3 Calcium 9.5 8.3 L D Magnesium 2.0 Total Bilirubin 0.5 AST 24 ALT 18 Alkaline Phosphatase 86 C-Reactive Protein 0.15 Total Protein 6.9 Albumin 4.0 Urine Color Yellow Urine Appearance Turbid Urine pH 5.5 Ur Specific [place] 1.010 Urine Protein Negative Urine Glucose (UA) Negative Urine Ketones Negative Urine Blood Trace H Urine Nitrite Positive H Ur Leukocyte Esterase Trace H Urine RBC 0-2 Urine WBC 6-10 Ur Squamous Epith Cells 0-2 Urine Bacteria 2+ Hyaline Casts 0-2 COVID-19 (JEFE) Negative COVID-19 Clin Com See Note Assessment and Plan (1) Allergy to multiple antibiotics: Status: Acute (2) Acute suprapubic pain: Status: Acute (3) Bilateral flank pain: Status: Acute (4) Neurogenic bladder, NOS: Status: Acute (5) Acute pyelonephritis: Status: Acute Plan This is a 67-year-old female with pertinent history of neurogenic bladder who self caths, paroxysmal atrial fibrillation on anticoagulation, mood disorder, seizure disorder, hypothyroidism, gastroesophageal reflux disease, COPD not on home oxygen who presents to the emergency department for evaluation of dysuria. # Acute UTI with pyelonephritis patient with neurogenic bladder and self catheterization history of multiple anaphylactic allergies to p.o. medications IV gentamicin Consulting Infectious Disease # dilated pancreatic duct Obtaining MRCP to r\o masses # Paroxysmal atrial fibrillation On anticoagulation. Rate controlled in the ER # Mood disorder Continue home mood stabilizers # Seizure disorder On Keppra # Hypothyroidism On Synthroid # COPD No exacerbation during admission. Continue home inhalers # Gastroesophageal reflux disease On PPI DVT prophylaxis: Claudettequis Admit as inpatient and will requires overnight minimum hospital stay for IV antibiotics Time Spent With Patient Time: Total time managing care of this patient today ____ minutes. Quality Stroke Does the patient have a stroke diagnosis?: No VTE Prior VTE?: No VTE Risk Level:: Medical - moderate - high VTE Device Contraindication: Treatment Not Indicated VTE Drug Contraindication: N/A - Med Ordered
--- NOTE | 2023-07-14 14:20 | MHC.CM.PN ---
IMM 07/14/23 Pt is independent, does not have any home health services, she has used [facility] for visiting nurse services in the past, would like to be referred to them again if VNA is needed upon DC. She walked to hosp. and plans to walk home, lives 5 min walk away. Her grand daughter is her HCP, form was given and copy requested for record. Plan is home with VNA services if indicated. CM to follow and assist with DC plan.
--- NOTE | 2023-07-14 19:10 | PC.NURSE ---
Patient c/o vaginal itching,reports no discharge,Dr. Frances notified
[2023-07-14] MEDS: oxyBUTYnin chloride 5 MG TABLET PO (20:10)
[2023-07-14] MEDS: Atorvastatin Calcium 20 MG TABLET PO (20:10)
[2023-07-14] MEDS: Dicyclomine HCl 10 MG CAPSULE 20 MG PO (20:10)
[2023-07-14] MEDS: Amitriptyline HCl 25 MG TABLET PO (20:11)
[2023-07-14] MEDS: Apixaban 5 MG TABLET PO (20:11)
[2023-07-14] MEDS: Magnesium Oxide 400 MG TABLET PO (20:11)
[2023-07-14] MEDS: traZODone HCL 50 MG TABLET PO (20:11)
[2023-07-14] MEDS: diphenhydrAMINE HCL 25 MG CAPSULE 50 MG PO (20:11)
--- NOTE | 2023-07-14 22:52 | W.PM.IDCN ---
History of Present Illness Data of Consult Service Date: 07/14/23 Requesting physician: Azul Frances Primary Care Provider: Bryson Wright MD HPI Reason for consult: dyuria,multiple drug allergies She has dysuria for last week and didnt take antibiotics due to multiple allergies. She has diarrhea through colostomy also. Review of Systems Review of Systems: Yes all other systems are reviewed and are negative PMFSH Past Medical History Medical History Primary cancer of foot Pulmonary embolism Degenerative cervical disc Lumbar disc disease Celiac disease Pure hypercholesterolemia Epilepsy Hypothyroidism COPD (chronic obstructive pulmonary disease) Pseudoseizure Conversion disorder Colon cancer Paroxysmal A-fib Allergy to multiple drugs Deep vein thrombosis Family History Family History Mother CAD (coronary artery disease) Other Mental health disorder Family history: reviewed and not pertinent Surgical History Surgical History History of arthroplasty History of hysterectomy (~1979) Hx of cholecystectomy S/P IVC filter History of partial surgical removal of colon History of partial gastrectomy History of colectomy History of colostomy reversal History of bladder surgery History of sinus surgery History of facial surgery History of colonoscopy Social History Social History Household Members: Other Household Members Other:: 1 Housing: Apartment Do you presently have visiting nurse or other home services: Yes Alcohol intake: former Patient Tobacco Use Status: Never used Tobacco e-Cigarette/Vaping Use: Never Used Second Hand Smoke Exposure: Yes Advance Directives Date on File: 07/14/23 service: No Current occupational status: disabled Cognitive needs: Yes (cane) Hearing needs: No Vision needs: Yes (Glasses) Meds Allergies Allergy/AdvReac Type Severity Reaction Status Date / Time erythromycin base Allergy Severe Anaphylaxis Verified 07/13/23 10:05 [ERYTHROMYCIN BASE] levofloxacin [From Levaquin] Allergy Severe Anaphylaxis Verified 07/13/23 10:05 Penicillins [PCN] Allergy Severe Anaphylaxis Verified 07/13/23 10:05 seafood Allergy Severe Anaphylaxis Verified 07/13/23 10:05 Sulfa (Sulfonamide Allergy Severe Anaphylaxis, Verified 07/13/23 10:05 Antibiotics) vomiting [SULFA (SULFONAMIDE ANTIBIOTICS)] Tetracyclines Allergy Severe Anaphylaxis Verified 07/13/23 10:05 divalproex sodium [Depakote] Allergy Unknown altered Verified 07/13/23 10:05 mental status gluten [GLUTEN] Allergy Unknown BLOATING,RA Verified 07/13/23 10:05 SH rice Allergy Unknown Verified 07/13/23 10:05 Active Medications: Current Medications Acetaminophen (Acetaminophen 325 Mg Tablet) 650 mg PO Q6H PRN PRN Reason: Pain, Mild (Pain Scale 1-3) Albuterol Sulfate (Albuterol Sulfate 90 Mcg 8 Gm Inhaler) 2 puff INHALE Q6H PRN PRN Reason: for muscle spasm Amitriptyline HCl (Amitriptyline Hcl 25 Mg Tablet) 25 mg PO BEDTIME [facility] [place] Last Admin: 07/14/23 20:11 Dose: 25 mg Apixaban (Apixaban 5 Mg Tablet) 5 mg PO BID [facility] [place] Last Admin: 07/14/23 20:11 Dose: 5 mg Atorvastatin Calcium (Atorvastatin Calcium 20 Mg Tablet) 20 mg PO BEDTIME [facility] [place] Last Admin: 07/14/23 20:10 Dose: 20 mg Cholestyramine Resin (Cholestyramine (With Sugar) 4 Gm Powd.Pack) 4 gm PO BID [facility] [place] Last Admin: 07/14/23 20:12 Dose: Not Given Dicyclomine HCl (Dicyclomine Hcl 10 Mg Capsule) 20 mg PO BID [facility] [place] Last Admin: 07/14/23 20:10 Dose: 20 mg Digoxin (Digoxin 0.125 Mg Tablet) 0.125 mg PO DAILY [facility] [place] Diphenhydramine HCl (Diphenhydramine Hcl 50 Mg/Ml Vial) 50 mg IVPUSH Q6H PRN PRN Reason: Pre-med Last Admin: 07/14/23 16:54 Dose: 50 mg Diphenhydramine HCl (Diphenhydramine Hcl 25 Mg Capsule) 50 mg PO BEDTIME [facility] [place] Last Admin: 07/14/23 20:11 Dose: 50 mg Duloxetine HCl (Duloxetine Hcl 60 Mg Capsule.Dr) 60 mg PO DAILY [facility] [place] Fluticasone/Vilanterol (Fluticasone/Vilanterol 100/25 Blst.W.Dev) 1 puff INHALE RDAILY [facility] [place] Hydromorphone HCl (Hydromorphone Hcl 1 Mg/Ml Syringe) 1 mg IVPUSH Q4H PRN; Protocol PRN Reason: Pain, Severe (Pain Scale 7-10) Last Admin: 07/14/23 18:04 Dose: 1 mg Gentamicin Sulfate/Sodium Chloride (Garamycin) 80 mg in 100 mls @ 100 mls/hr IV Q8H [facility] [place] Last Infusion: 07/14/23 19:07 Dose: Infused Levetiracetam (Levetiracetam 250 Mg Tablet) 750 mg PO BID [facility] [place] Last Admin: 07/14/23 20:09 Dose: 750 mg Levothyroxine Sodium (Levothyroxine Sodium 50 Mcg Tablet) 50 mcg PO DAILY@0600 [facility] [place] Loperamide HCl (Loperamide Hcl 2 Mg Capsule) 2 mg PO DAILY PRN PRN Reason: Diarrhea Loratadine (Loratadine 10 Mg Tablet) 10 mg PO DAILY [facility] [place] Magnesium Oxide (Magnesium Oxide 400 Mg Tablet) 400 mg PO BID [facility] [place] Last Admin: 07/14/23 20:11 Dose: 400 mg Melatonin (Melatonin 3 Mg Tablet) 6 mg PO BEDTIME PRN PRN Reason: Insomnia Multivitamins/Vitamin C (Multivitamin Tablet) 1 tab PO DAILY [facility] Omeprazole (Omeprazole 20 Mg Capsule.Dr) 20 mg PO DAILY@0630 [facility] Ondansetron HCl (Ondansetron Hcl 4 Mg/2 Ml Vial) 4 mg IVPUSH Q8H PRN PRN Reason: Nausea and Vomiting Oxybutynin Chloride (Oxybutynin Chloride 5 Mg Tablet) 5 mg PO BID [facility] [place] Last Admin: 07/14/23 20:10 Dose: 5 mg Sodium Chloride (0.9 % Sodium Chloride Flush 3 Ml Syringe) 3 ml IVFLUSH QSHIFT [facility] [place] Last Admin: 07/14/23 16:54 Dose: 3 ml Thiamine HCl (Thiamine Hcl 100 Mg Tablet) 100 mg PO DAILY [facility] [place] Trazodone HCl (Trazodone Hcl 50 Mg Tablet) 50 mg PO BEDTIME [facility] [place] Last Admin: 07/14/23 20:11 Dose: 50 mg Home Medications Medication Instructions Recorded Confirmed Last Taken Type diphenhydramine HCl 25 mg tablet 50 mg PO BEDTIME 01/07/22 07/14/23 01/06/22 History (Banophen) loperamide 2 mg capsule 2 mg PO NEEDED PRN Diarrhea 01/07/22 07/14/23 01/06/22 History magnesium oxide 400 mg (241.3 mg 1 tab PO BID 01/07/22 07/14/23 01/06/22 History magnesium) tablet thiamine HCl (vitamin B1) 100 mg 1 tab PO DAILY 01/07/22 07/14/23 01/06/22 History tablet (Vitamin B-1) amitriptyline 25 mg tablet 25 mg PO BEDTIME 07/14/23 07/14/23 Unknown History budesonide-formoterol HFA 80 2 puff inhalation BID 07/14/23 07/14/23 Unknown History mcg-4.5 mcg/actuation aerosol inhaler (Symbicort) cholestyramine (with sugar) 4 gram 4 g PO BID 07/14/23 07/14/23 Unknown History powder for susp in a packet dicyclomine 20 mg tablet 20 mg PO BID 07/14/23 07/14/23 Unknown History duloxetine 60 mg capsule,delayed 60 mg PO DAILY 07/14/23 07/14/23 Unknown History release (Cymbalta) [id number] acid 0.4 1 tab PO DAILY 07/14/23 07/14/23 Unknown History mg-lycopene 300 mcg-lutein 250 mcg tablet ([employer] Senior) oxybutynin chloride 5 mg tablet 5 mg PO BID 07/14/23 07/14/23 Unknown History pantoprazole 40 mg tablet,delayed 40 mg PO DAILY 07/14/23 07/14/23 Unknown History release potassium chloride 10 mEq 10 meq PO BID 07/14/23 07/14/23 Unknown History capsule,extended release trazodone 50 mg tablet 50 mg PO BEDTIME 07/14/23 07/14/23 Unknown History Physical Exam Vital Signs: Vital Signs: Last Vital Signs Temp 95.4 F L 07/14/23 19:14 Pulse 67 07/14/23 19:14 Resp 17 07/14/23 19:14 BP 100/56 L 07/14/23 19:14 Pulse Ox 98 07/14/23 19:14 O2 Del Method Room Air 07/14/23 19:14 BMI result Body Mass Index 22.8 Const: General: cooperative HEENT: Head: Yes normal to inspection Face and sinus: Yes normal facial exam Mouth: Normal oral and palatal mucosa present Teeth and gingiva: dentition normal Eyes: General: appearance normal, both eyes and all related structures Pupils: Equal, round and reactive pupils present Resp: Effort & Inspection: normal respiratory effort Cardio: Rate: regular rate Rhythm: regular rhythm GI: Palpation (GI): Soft to palpation and nontender : General: Yes no CVA tenderness Back/Spine/Pelvis: Back: no CVA tenderness Skin: General skin exam: no rashes or lesions noted Neuro: General: moves all extremities Cranial nerves: Yes Equal, round and reactive pupils present Extrem: General: Yes normal to inspection Psych: Appearance: grossly normal Results Labs 07/14/23 05:47 07/14/23 05:47 Labs: Short CBC 07/14/23 Range/Units 05:47 WBC 4.3 L (4.8-10.8) X10*3/uL Hgb 10.7 L (12.0-16.0) g/dl Hct 33.3 L (37.0-47.0) % Plt Count 225 (160-400) X10*3/uL BMP 07/14/23 05:47 Sodium 139 Potassium 3.8 Chloride 109 H Carbon Dioxide 23 BUN 12 Creatinine 0.60 Calcium 8.3 L D Microbiology Microbiology Results: Microbiology 07/13/23 18:32 Blood - Venous Blood Culture - Preliminary No growth after 24 hours. Assessment and Plan (1) Allergy to multiple antibiotics: Status: Acute (2) Acute suprapubic pain: Status: Acute Gram negative UTI Multiple drug allergies (3) Bilateral flank pain: Status: Acute Plan She is on Gentamicin now but would try Fosfomycin in am 3 g and see if tolerates and works. Time Spent With Patient Time: Total time managing care of this patient today ____ minutes.
[2023-07-15] VITALS (7 sets, daily range): BP systolic 90–114; BP diastolic 50–64; PULSE 56–88; RESP 16–18; TEMP 36–37.1; O2SAT 95–98
[2023-07-15] MEDS: Gentamicin Sulfate/NaCl 80 MG/100 ML PIGGYBACK 100 MG IV ×3 (00:57→15:44)
[2023-07-15] MEDS: diphenhydrAMINE HCL 50 MG/ML VIAL IVPUSH ×3 (00:57→15:43)
[2023-07-15] MEDS: HYDROmorphone HCl 1 MG/ML SYRINGE IVPUSH ×5 (04:49→21:23)
[2023-07-15] MEDS: ondansetron HCL 4 MG/2 ML VIAL IVPUSH ×2 (04:56→12:46)
[2023-07-15] MEDS: Levothyroxine Sodium 50 MCG TABLET PO (04:58)
[2023-07-15] MEDS: Omeprazole 20 MG CAPSULE.DR PO (04:58)
[2023-07-15 06:32] LABS: Hematocrit 33.5 % (37.0-47.0); Hemoglobin 10.8 g/dl (12.0-16.0); Mean Corpuscular HGB Conc 32.2 g/dl (31.0-35.0); Mean Corpuscular Hemoglobin 30.4 pg (27.0-33.0); Mean Corpuscular Volume 94.4 fL (80.0-98.0); Mean Platelet Volume 9.4 fL (9.4-12.3); Platelet Count 253 X10*3/uL (160-400); Red Blood Count 3.55 X10*6/uL (4.20-5.50); Red Cell Distribution Width 13.6 % (11.0-16.0); White Blood Count 4.1 X10*3/uL (4.8-10.8)
[2023-07-15 06:49] LABS: Anion Gap 12 (12-20); Blood Urea Nitrogen 14 mg/dL (9-16); Calcium 8.8 mg/dL (8.4-10.2); Carbon Dioxide 27 mmol/L (22-29); Chloride 105 mmol/L (96-108); Creatinine Clr Calc Pharmacy 61.1; Estimated Glomerular Filt Rate > 60; Glucose Random 92 mg/dL (60-115); Sodium 140 mmol/L (135-145)
[2023-07-15] MEDS: Dicyclomine HCl 10 MG CAPSULE 20 MG PO ×2 (08:50→21:28)
[2023-07-15] MEDS: DULoxetine HCl 60 MG CAPSULE.DR PO (08:50)
[2023-07-15] MEDS: Multivitamin TABLET 1 TAB PO (08:51)
[2023-07-15] MEDS: Apixaban 5 MG TABLET PO ×2 (08:51→21:27)
[2023-07-15] MEDS: Thiamine HCL 100 MG TABLET PO (08:51)
[2023-07-15] MEDS: Loratadine 10 MG TABLET PO (08:51)
[2023-07-15] MEDS: oxyBUTYnin chloride 5 MG TABLET PO ×2 (08:51→21:27)
[2023-07-15] MEDS: Magnesium Oxide 400 MG TABLET PO ×2 (08:51→21:26)
[2023-07-15] MEDS: levETIRAcetam 250 MG TABLET 750 MG PO ×2 (08:51→21:28)
[2023-07-15] MEDS: Digoxin 0.125 MG TABLET PO (08:51)
[2023-07-15] MEDS: 0.9 % Sodium Chloride Flush 3 ML SYRINGE IVFLUSH ×2 (09:20→15:43)
[2023-07-15] MEDS: Midodrine HCl 5 MG TABLET PO ×2 (11:51→21:26)
--- NOTE | 2023-07-15 13:34 | HO.PM.IMPN ---
Subjective Subjective Date of Service: 07/15/23 Interval History: Seen and evaluated feels better reporting pain, dizziness upon standing w positive orthostatics no fever or chills MRCP negative for any masses Review of Systems Review of Systems: Yes all other systems are reviewed and are negative Physical Exam Vital Signs: Vital Signs: Last Vital Signs Temp 97.7 F 07/15/23 11:48 Pulse 75 07/15/23 11:48 Resp 18 07/15/23 11:48 BP 94/53 L 07/15/23 11:48 Pulse Ox 98 07/15/23 11:48 O2 Del Method Room Air 07/15/23 11:48 BMI result Body Mass Index 22.8 Const: Other: Constitutional : Awake, interactive, not in distress Neck : Normal inspection, Supple Cardiovascular : RRR, no JVP, no lower extremity edema Respiratory : good bilateral air entry, no crackles, wheezes or rhonchi Gastrointestinal: soft, lax, Normal bowel sounds, Non tender Skin : Warm, Dry Neurological : Alert & oriented x3, No focal deficit Objective Data Active Medications Acetaminophen (Acetaminophen 325 Mg Tablet) 650 mg PO Q6H PRN PRN Reason: Pain, Mild (Pain Scale 1-3) Albuterol Sulfate (Albuterol Sulfate 90 Mcg 8 Gm Inhaler) 2 puff INHALE Q6H PRN PRN Reason: for muscle spasm Amitriptyline HCl (Amitriptyline Hcl 25 Mg Tablet) 12.5 mg PO BEDTIME [facility] Apixaban (Apixaban 5 Mg Tablet) 5 mg PO BID [facility] Last Admin: 07/15/23 08:51 Dose: 5 mg Documented By: URMILA Atorvastatin Calcium (Atorvastatin Calcium 20 Mg Tablet) 20 mg PO BEDTIME [facility] Last Admin: 07/14/23 20:10 Dose: 20 mg Documented By: JESSE Cholestyramine Resin (Cholestyramine (With Sugar) 4 Gm Powd.Pack) 4 gm PO BID [facility] Last Admin: 07/15/23 08:52 Dose: Not Given Documented By: URMILA Non-Admin Reason: Patient Refused Dicyclomine HCl (Dicyclomine Hcl 10 Mg Capsule) 20 mg PO BID [facility] Last Admin: 07/15/23 08:50 Dose: 20 mg Documented By: URMILA Digoxin (Digoxin 0.125 Mg Tablet) 0.125 mg PO DAILY [facility] Last Admin: 07/15/23 08:51 Dose: 0.125 mg Documented By: URMILA Diphenhydramine HCl (Diphenhydramine Hcl 50 Mg/Ml Vial) 50 mg IVPUSH Q6H PRN PRN Reason: Pre-med Last Admin: 07/15/23 08:42 Dose: 50 mg Documented By: URMILA Diphenhydramine HCl (Diphenhydramine Hcl 25 Mg Capsule) 50 mg PO BEDTIME [facility] Last Admin: 07/14/23 20:11 Dose: 50 mg Documented By: JESSE Duloxetine HCl (Duloxetine Hcl 60 Mg Capsule.Dr) 60 mg PO DAILY [facility] Last Admin: 07/15/23 08:50 Dose: 60 mg Documented By: URMILA Fluticasone/Vilanterol (Fluticasone/Vilanterol 100/25 Blst.W.Dev) 1 puff INHALE RDAILY [facility] Last Admin: 07/15/23 07:47 Dose: Not Given Documented By: NAOMY Non-Admin Reason: Med Not Available Hydromorphone HCl (Hydromorphone Hcl 1 Mg/Ml Syringe) 1 mg IVPUSH Q4H PRN; Protocol PRN Reason: Pain, Severe (Pain Scale 7-10) Last Admin: 07/15/23 12:47 Dose: 1 mg Documented By: URMILA Gentamicin Sulfate/Sodium Chloride (Garamycin) 80 mg in 100 mls @ 100 mls/hr IV Q8H [facility] Last Infusion: 07/15/23 10:42 Dose: Infused Documented By: URMILA Levetiracetam (Levetiracetam 250 Mg Tablet) 750 mg PO BID [facility] Last Admin: 07/15/23 08:51 Dose: 750 mg Documented By: URMILA Levothyroxine Sodium (Levothyroxine Sodium 50 Mcg Tablet) 50 mcg PO DAILY@0600 [facility] Last Admin: 07/15/23 04:58 Dose: 50 mcg Documented By: TIMMY Loperamide HCl (Loperamide Hcl 2 Mg Capsule) 2 mg PO DAILY PRN PRN Reason: Diarrhea Loratadine (Loratadine 10 Mg Tablet) 10 mg PO DAILY [facility] Last Admin: 07/15/23 08:51 Dose: 10 mg Documented By: URMILA Magnesium Oxide (Magnesium Oxide 400 Mg Tablet) 400 mg PO BID [facility] Last Admin: 07/15/23 08:51 Dose: 400 mg Documented By: URMILA Melatonin (Melatonin 3 Mg Tablet) 6 mg PO BEDTIME PRN PRN Reason: Insomnia Metronidazole (Metronidazole 0.75 % Vaginal Gel 70 Gm Tube) 1 gm VAGINAL DAILY [facility] Stop: 07/19/23 09:01 Midodrine (Midodrine Hcl 5 Mg Tablet) 5 mg PO TID [facility] Last Admin: 07/15/23 11:51 Dose: 5 mg Documented By: URMILA Multivitamins/Vitamin C (Multivitamin Tablet) 1 tab PO DAILY [facility] Last Admin: 07/15/23 08:51 Dose: 1 tab Documented By: URMILA Omeprazole (Omeprazole 20 Mg Capsule.) 20 mg PO DAILY@0630 [facility] Last Admin: 07/15/23 04:58 Dose: 20 mg Documented By: TIMMY Ondansetron HCl (Ondansetron Hcl 4 Mg/2 Ml Vial) 4 mg IVPUSH Q8H PRN PRN Reason: Nausea and Vomiting Last Admin: 07/15/23 12:46 Dose: 4 mg Documented By: URMILA Oxybutynin Chloride (Oxybutynin Chloride 5 Mg Tablet) 5 mg PO BID [facility] Last Admin: 07/15/23 08:51 Dose: 5 mg Documented By: URMILA Sodium Chloride (0.9 % Sodium Chloride Flush 3 Ml Syringe) 3 ml IVFLUSH QSHIFT [facility] Last Admin: 07/15/23 09:20 Dose: 3 ml Documented By: URMILA Thiamine HCl (Thiamine Hcl 100 Mg Tablet) 100 mg PO DAILY [facility] Last Admin: 07/15/23 08:51 Dose: 100 mg Documented By: URMILA Trazodone HCl (Trazodone Hcl 50 Mg Tablet) 50 mg PO BEDTIME [facility] Last Admin: 07/14/23 20:11 Dose: 50 mg Documented By: BEIT Labs 07/15/23 05:49 07/15/23 05:49 Labs: Laboratory Results - last 24 hr 07/15/23 05:49 MCV 94.4 MCH 30.4 MCHC 32.2 RDW 13.6 Plt Count 253 MPV 9.4 Absolute Nucleated RBC 0.000 Nucleated RBC % (auto) 0.0 Anion Gap 12 Estim Creat Clear Calc 61.1 Estimated GFR > 60 Random Glucose 92 Calcium 8.8 D Microbiology Microbiology Results: Microbiology 07/13/23 23:38 Blood Culture - Preliminary Blood - Venous No growth after 24 hours. 07/13/23 18:32 Blood Culture - Preliminary Blood - Venous No growth after 24 hours. Assessment and Plan (1) Allergy to multiple antibiotics: Status: Acute (2) Acute pyelonephritis: Status: Acute Plan This is a 67-year-old female with pertinent history of neurogenic bladder who self caths, paroxysmal atrial fibrillation on anticoagulation, mood disorder, seizure disorder, hypothyroidism, gastroesophageal reflux disease, COPD not on home oxygen who presents to the emergency department for evaluation of dysuria. # Acute UTI with pyelonephritis patient with neurogenic bladder and self catheterization history of multiple anaphylactic allergies to p.o. medications IV gentamicin Cx grewing E.Coli Infectious Disease; try Fosfomycin prior to discharge # dilated pancreatic duct MRCP did not show any masses or collections # Paroxysmal atrial fibrillation On anticoagulation. Rate controlled in the ER # Mood disorder Continue home mood stabilizers # Seizure disorder On Keppra # Hypothyroidism On Synthroid # COPD No exacerbation during admission. Continue home inhalers # Gastroesophageal reflux disease On PPI DVT prophylaxis: Claudettequis Admit as inpatient and will requires overnight minimum hospital stay for IV antibiotics Time Spent With Patient Time: Total time managing care of this patient today ____ minutes. Quality Stroke Does the patient have a stroke diagnosis?: No VTE Prior VTE?: No VTE Risk Level:: Medical - moderate - high VTE Device Contraindication: Treatment Not Indicated VTE Drug Contraindication: N/A - Med Ordered
[2023-07-15] MEDS: metroNIDAZOLE 0.75 % Vaginal Gel 70 GM TUBE VAGINAL (13:43)
--- NOTE | 2023-07-15 18:05 | PC.NURSE ---
Offered assistance with str cath ,patient states she is not ready yet
[2023-07-15] MEDS: Atorvastatin Calcium 20 MG TABLET PO (21:26)
[2023-07-15] MEDS: diphenhydrAMINE HCL 25 MG CAPSULE 50 MG PO (21:26)
[2023-07-15] MEDS: traZODone HCL 50 MG TABLET PO (21:27)
[2023-07-15] MEDS: Amitriptyline HCl 25 MG TABLET 12.5 MG PO (21:27)
[2023-07-16] MEDS: diphenhydrAMINE HCL 50 MG/ML VIAL IVPUSH ×3 (01:55→18:14)
[2023-07-16] MEDS: Gentamicin Sulfate/NaCl 80 MG/100 ML PIGGYBACK 100 MG IV ×2 (01:55→18:15)
[2023-07-16] MEDS: 0.9 % Sodium Chloride Flush 3 ML SYRINGE IVFLUSH ×4 (01:56→22:16)
[2023-07-16] MEDS: HYDROmorphone HCl 1 MG/ML SYRINGE IVPUSH ×6 (02:02→22:30)
[2023-07-16] MEDS: Omeprazole 20 MG CAPSULE.DR PO ×2 (06:11→18:15)
[2023-07-16] MEDS: Levothyroxine Sodium 50 MCG TABLET PO (06:11)
[2023-07-16 08:00] VITALS: BP 101/56; PULSE 76; RESP 16; TEMP 36.2; O2SAT 92
[2023-07-16] MEDS: Dicyclomine HCl 10 MG CAPSULE 20 MG PO ×2 (09:06→22:36)
[2023-07-16] MEDS: levETIRAcetam 250 MG TABLET 750 MG PO ×2 (09:06→22:36)
[2023-07-16] MEDS: Multivitamin TABLET 1 TAB PO (09:07)
[2023-07-16] MEDS: Magnesium Oxide 400 MG TABLET PO ×2 (09:07→22:37)
[2023-07-16] MEDS: DULoxetine HCl 60 MG CAPSULE.DR PO (09:07)
[2023-07-16] MEDS: Digoxin 0.125 MG TABLET PO (09:07)
[2023-07-16] MEDS: Apixaban 5 MG TABLET PO ×2 (09:07→22:37)
[2023-07-16] MEDS: oxyBUTYnin chloride 5 MG TABLET PO ×2 (09:07→22:38)
[2023-07-16] MEDS: Thiamine HCL 100 MG TABLET PO (09:07)
[2023-07-16] MEDS: Midodrine HCl 5 MG TABLET PO ×3 (09:07→22:37)
[2023-07-16] MEDS: Loratadine 10 MG TABLET PO (09:07)
[2023-07-16 09:53] VITALS: BP 101/56; PULSE 76; O2SAT 92
--- NOTE | 2023-07-16 10:26 | MHC.CM.PN ---
Addendum entered by Kelsey Hay RN 07/16/23 14:42: Patient evaluated by PT, recommending STR. Patient declining STR at this time, as she currently resides in a [facility] and says she will lose her room if she is gone for more than a few days. Prefers home PT. MD and PT aware. [facility] has accepted. CM will continue to follow. Original Note: EMR reviewed and per MD rounds patient is not medically cleared for dc at this time. This CM met with patient at bedside, patient is requesting VNA services for PT on dc, has used [facility] in the past. MD agrees. [facility] CM will continue to follow.
[2023-07-16] MEDS: metroNIDAZOLE 0.75 % Vaginal Gel 70 GM TUBE VAGINAL (10:35)
--- NOTE | 2023-07-16 12:43 | MHC.CLN ---
NUTRITION PATIENT REPORTS HX COLON CANCER WITH MULTIPLE SURGERIES. REPORTS PARTIAL GASTRECTOMY AND HAS COLOSTOMY. FOOD ALLERGIES INCLUDE GLUTEN, SEAFOOD AND RICE. LIKES ENSURE SUPPLEMENT. WILL TRY MAGIC CUP FORTIFIED ICE CREAM (IS GLUTEN FREE). SUPPLEMENTS ENSURE MAX PROTEIN TID AND MAGIC CUP BID PROVIDE [address] TO FOLLOW UP WEEKLY.
--- NOTE | 2023-07-16 13:27 | HO.PM.IMPN ---
Subjective Subjective Date of Service: 07/16/23 Interval History: Seen and evaluated reporting pain in her abdomen with med tablets passing through the colostomy positive orthostatics no fever or chills MRCP negative for any masses Review of Systems Review of Systems: Yes all other systems are reviewed and are negative Physical Exam Vital Signs: Vital Signs: Last Vital Signs Temp 97.2 F 07/16/23 08:00 Pulse 76 07/16/23 08:00 Resp 16 07/16/23 08:00 BP 101/56 L 07/16/23 08:00 Pulse Ox 92 07/16/23 08:00 O2 Del Method Room Air 07/16/23 08:00 BMI result Body Mass Index 22.8 Const: Other: Constitutional : Awake, interactive, not in distress Neck : Normal inspection, Supple Cardiovascular : RRR, no JVP, no lower extremity edema Respiratory : good bilateral air entry, no crackles, wheezes or rhonchi Gastrointestinal: soft, lax, Normal bowel sounds, generalized mild tenderness , Colostomy in place. Skin : Warm, Dry Neurological : Alert & oriented x3, No focal deficit Objective Data Active Medications Acetaminophen (Acetaminophen 325 Mg Tablet) 650 mg PO Q6H PRN PRN Reason: Pain, Mild (Pain Scale 1-3) Albuterol Sulfate (Albuterol Sulfate 90 Mcg 8 Gm Inhaler) 2 puff INHALE Q6H PRN PRN Reason: for muscle spasm Amitriptyline HCl (Amitriptyline Hcl 25 Mg Tablet) 12.5 mg PO BEDTIME [facility] Last Admin: 07/15/23 21:27 Dose: 12.5 mg Documented By: JESSE Apixaban (Apixaban 5 Mg Tablet) 5 mg PO BID [facility] Last Admin: 07/16/23 09:07 Dose: 5 mg Documented By: SCAR Atorvastatin Calcium (Atorvastatin Calcium 20 Mg Tablet) 20 mg PO BEDTIME [facility] Last Admin: 07/15/23 21:26 Dose: 20 mg Documented By: JESSE Cholestyramine Resin (Cholestyramine (With Sugar) 4 Gm Powd.Pack) 4 gm PO BID [facility] Last Admin: 07/16/23 09:05 Dose: Not Given Documented By: SCAR Non-Admin Reason: Patient Refused Dicyclomine HCl (Dicyclomine Hcl 10 Mg Capsule) 20 mg PO BID [facility] Last Admin: 07/16/23 09:06 Dose: 20 mg Documented By: SCAR Digoxin (Digoxin 0.125 Mg Tablet) 0.125 mg PO DAILY [facility] Last Admin: 07/16/23 09:07 Dose: 0.125 mg Documented By: SCAR Diphenhydramine HCl (Diphenhydramine Hcl 50 Mg/Ml Vial) 50 mg IVPUSH Q6H PRN PRN Reason: Pre-med Last Admin: 07/16/23 09:08 Dose: 50 mg Documented By: SCAR Diphenhydramine HCl (Diphenhydramine Hcl 25 Mg Capsule) 50 mg PO BEDTIME [facility] Last Admin: 07/15/23 21:26 Dose: 50 mg Documented By: JESSE Duloxetine HCl (Duloxetine Hcl 60 Mg Capsule.Dr) 60 mg PO DAILY [facility] Last Admin: 07/16/23 09:07 Dose: 60 mg Documented By: SCAR Fluticasone/Vilanterol (Fluticasone/Vilanterol 100/25 Blst.W.Dev) 1 puff INHALE RDAILY [facility] Last Admin: 07/16/23 08:23 Dose: Not Given Documented By: NAOMY Non-Admin Reason: Med Not Available Hydromorphone HCl (Hydromorphone Hcl 1 Mg/Ml Syringe) 1 mg IVPUSH Q4H PRN; Protocol PRN Reason: Pain, Severe (Pain Scale 7-10) Last Admin: 07/16/23 10:25 Dose: 1 mg Documented By: SCAR Gentamicin Sulfate/Sodium Chloride (Garamycin) 80 mg in 100 mls @ 100 mls/hr IV Q8H [facility] Last Admin: 07/16/23 09:08 Dose: Not Given Documented By: SCAR Non-Admin Reason: Physician Held Med Levetiracetam (Levetiracetam 250 Mg Tablet) 750 mg PO BID [facility] Last Admin: 07/16/23 09:06 Dose: 750 mg Documented By: SCAR Levothyroxine Sodium (Levothyroxine Sodium 50 Mcg Tablet) 50 mcg PO DAILY@0600 [facility] Last Admin: 07/16/23 06:11 Dose: 50 mcg Documented By: SCAR Loperamide HCl (Loperamide Hcl 2 Mg Capsule) 2 mg PO DAILY PRN PRN Reason: Diarrhea Loratadine (Loratadine 10 Mg Tablet) 10 mg PO DAILY [facility] Last Admin: 07/16/23 09:07 Dose: 10 mg Documented By: SCAR Magnesium Oxide (Magnesium Oxide 400 Mg Tablet) 400 mg PO BID [facility] Last Admin: 07/16/23 09:07 Dose: 400 mg Documented By: SCAR Melatonin (Melatonin 3 Mg Tablet) 6 mg PO BEDTIME PRN PRN Reason: Insomnia Metronidazole (Metronidazole 0.75 % Vaginal Gel 70 Gm Tube) 1 gm VAGINAL DAILY [facility] Stop: 07/19/23 09:01 Last Admin: 07/16/23 10:35 Dose: 1 gm Documented By: SCAR Midodrine (Midodrine Hcl 5 Mg Tablet) 5 mg PO TID [facility] Last Admin: 07/16/23 09:07 Dose: 5 mg Documented By: SCAR Multivitamins/Vitamin C (Multivitamin Tablet) 1 tab PO DAILY [facility] Last Admin: 07/16/23 09:07 Dose: 1 tab Documented By: SCAR Omeprazole (Omeprazole 20 Mg Capsule.Dr) 20 mg PO DAILY@0630 [facility] Last Admin: 07/16/23 06:11 Dose: 20 mg Documented By: SCAR Ondansetron HCl (Ondansetron Hcl 4 Mg/2 Ml Vial) 4 mg IVPUSH Q8H PRN PRN Reason: Nausea and Vomiting Last Admin: 07/15/23 12:46 Dose: 4 mg Documented By: URMILA Oxybutynin Chloride (Oxybutynin Chloride 5 Mg Tablet) 5 mg PO BID [facility] Last Admin: 07/16/23 09:07 Dose: 5 mg Documented By: SCAR Sodium Chloride (0.9 % Sodium Chloride Flush 3 Ml Syringe) 3 ml IVFLUSH QSHIFT [facility] Last Admin: 07/16/23 09:08 Dose: 3 ml Documented By: SCAR Thiamine HCl (Thiamine Hcl 100 Mg Tablet) 100 mg PO DAILY [facility] Last Admin: 07/16/23 09:07 Dose: 100 mg Documented By: SCAR Trazodone HCl (Trazodone Hcl 50 Mg Tablet) 50 mg PO BEDTIME [facility] Last Admin: 07/15/23 21:27 Dose: 50 mg Documented By: HO.BEIT Labs 07/15/23 05:49 07/15/23 05:49 Microbiology Microbiology Results: Microbiology 07/13/23 23:38 Blood Culture - Preliminary Blood - Venous No growth after 48 hours. 07/13/23 18:32 Blood Culture - Preliminary Blood - Venous No growth after 48 hours. Assessment and Plan (1) Acute suprapubic pain: Status: Acute (2) Allergy to multiple antibiotics: Status: Acute (3) Bilateral flank pain: Status: Acute (4) Acute pyelonephritis: Status: Acute Plan This is a 67-year-old female with pertinent history of neurogenic bladder who self caths, paroxysmal atrial fibrillation on anticoagulation, mood disorder, seizure disorder, hypothyroidism, gastroesophageal reflux disease, COPD not on home oxygen who presents to the emergency department for evaluation of dysuria. # Acute UTI with pyelonephritis patient with neurogenic bladder and self catheterization history of multiple anaphylactic allergies to p.o. medications IV gentamicin Cx grewing E.Coli Infectious Disease; Hold on Abx as Fosfomycin was not covered by insurance # Abd pain get GI eval increase Omeprazole to 20 bid # dilated pancreatic duct MRCP did not show any masses or collections # Paroxysmal atrial fibrillation On anticoagulation. Rate controlled in the ER # Mood disorder Continue home mood stabilizers # Seizure disorder On Keppra # Hypothyroidism On Synthroid # COPD No exacerbation during admission. Continue home inhalers # Gastroesophageal reflux disease On PPI DVT prophylaxis: Eliquis Admit as inpatient and will requires overnight minimum hospital stay for IV antibiotics Time Spent With Patient Time: Total time managing care of this patient today ____ minutes. Quality Stroke Does the patient have a stroke diagnosis?: No VTE Prior VTE?: No VTE Risk Level:: Medical - moderate - high VTE Device Contraindication: Treatment Not Indicated VTE Drug Contraindication: N/A - Med Ordered
--- NOTE | 2023-07-16 13:54 | P.CNUR_ITS ---
History of Present Illness Consult details Consult date: 07/16/23 Narrative: CC: Neurogenic bladder - perform CIC Recurrent UTI 67-year-old female. Abdomen was pyelonephritis Has neurogenic bladder and performs self catheterization. Recurrent UTI prior treatment including IV gentamicin Recommend bowel regimen Had suppression at home to minimize infection Should follow with longstanding urologist Review of Systems 2 Constitutional: Constitutional: Reports as per HPI and Reports no additional constitutional complaints Cardiovascular: Cardiovascular: Reports as per HPI and Reports no additional cardiovascular complaints Respiratory: Respiratory: Reports as per HPI and Reports no additional respiratory complaints Gastrointestinal: Gastrointestinal: Reports as per HPI and Reports no additional gastrointestinal complaints Genitourinary: Genitourinary: Reports as per HPI Musculoskeletal: Musculoskeletal: Reports no additional musculoskeletal complaints and Reports as per HPI Neurologic: Reports system reviewed and no additional complaints, except as documented and Reports as per HPI PMFSH Past Medical History Medical History History of pulmonary embolus (PE) Allergy to multiple antibiotics Acute suprapubic pain Neurogenic bladder, NOS COVID-19 Primary cancer of foot Pulmonary embolism Degenerative cervical disc Lumbar disc disease Celiac disease Pure hypercholesterolemia Epilepsy Hypothyroidism COPD (chronic obstructive pulmonary disease) Pseudoseizure Conversion disorder Colon cancer Paroxysmal A-fib Allergy to multiple drugs Deep vein thrombosis Family History Family History Mother CAD (coronary artery disease) Other Mental health disorder Family history: reviewed and not pertinent Surgical History Surgical History History of arthroplasty History of hysterectomy (~1979) Hx of cholecystectomy S/P IVC filter History of partial surgical removal of colon History of partial gastrectomy History of colectomy History of colostomy reversal History of bladder surgery History of sinus surgery History of facial surgery History of colonoscopy Social History Social History Household Members: None Household Members Other:: 1 Housing: Apartment Do you presently have visiting nurse or other home services: Yes Alcohol intake: former Patient Tobacco Use Status: Never used Tobacco e-Cigarette/Vaping Use: Never Used Second Hand Smoke Exposure: Yes Advance Directives Date on File: 08/08/23 service: No Current occupational status: disabled Cognitive needs: Yes (cane) Hearing needs: No Vision needs: Yes (Glasses) Meds Allergies Allergy/AdvReac Type Severity Reaction Status Date / Time erythromycin base Allergy Severe Anaphylaxis Verified 07/13/23 10:05 [ERYTHROMYCIN BASE] levofloxacin [From Levaquin] Allergy Severe Anaphylaxis Verified 07/13/23 10:05 Penicillins [PCN] Allergy Severe Anaphylaxis Verified 07/13/23 10:05 seafood Allergy Severe Anaphylaxis Verified 07/13/23 10:05 Sulfa (Sulfonamide Allergy Severe Anaphylaxis, Verified 07/13/23 10:05 Antibiotics) vomiting [SULFA (SULFONAMIDE ANTIBIOTICS)] Tetracyclines Allergy Severe Anaphylaxis Verified 07/13/23 10:05 divalproex sodium [Depakote] Allergy Unknown altered Verified 07/13/23 10:05 mental status gluten [GLUTEN] Allergy Unknown BLOATING,RA Verified 07/13/23 10:05 SH rice Allergy Unknown Verified 07/13/23 10:05 Active Medications: Current Medications Acetaminophen (Acetaminophen 325 Mg Tablet) 650 mg PO Q6H PRN PRN Reason: Pain, Mild (Pain Scale 1-3) Albuterol Sulfate (Albuterol Sulfate 90 Mcg 8 Gm Inhaler) 2 puff INHALE Q6H PRN PRN Reason: for muscle spasm Amitriptyline HCl (Amitriptyline Hcl 25 Mg Tablet) 12.5 mg PO BEDTIME [facility] Last Admin: 07/15/23 21:27 Dose: 12.5 mg Apixaban (Apixaban 5 Mg Tablet) 5 mg PO BID [facility] Last Admin: 07/16/23 09:07 Dose: 5 mg Atorvastatin Calcium (Atorvastatin Calcium 20 Mg Tablet) 20 mg PO BEDTIME [facility] Last Admin: 07/15/23 21:26 Dose: 20 mg Cholestyramine Resin (Cholestyramine (With Sugar) 4 Gm Powd.Pack) 4 gm PO BID [facility] Last Admin: 07/16/23 09:05 Dose: Not Given Dicyclomine HCl (Dicyclomine Hcl 10 Mg Capsule) 20 mg PO BID [facility] Last Admin: 07/16/23 09:06 Dose: 20 mg Digoxin (Digoxin 0.125 Mg Tablet) 0.125 mg PO DAILY [facility] Last Admin: 07/16/23 09:07 Dose: 0.125 mg Diphenhydramine HCl (Diphenhydramine Hcl 50 Mg/Ml Vial) 50 mg IVPUSH Q6H PRN PRN Reason: Pre-med Last Admin: 07/16/23 09:08 Dose: 50 mg Diphenhydramine HCl (Diphenhydramine Hcl 25 Mg Capsule) 50 mg PO BEDTIME [facility] Last Admin: 07/15/23 21:26 Dose: 50 mg Duloxetine HCl (Duloxetine Hcl 60 Mg Capsule.Dr) 60 mg PO DAILY [facility] Last Admin: 07/16/23 09:07 Dose: 60 mg Fluticasone/Vilanterol (Fluticasone/Vilanterol 100/25 Blst.W.Dev) 1 puff INHALE RDAILY [facility] Last Admin: 07/16/23 08:23 Dose: Not Given Hydromorphone HCl (Hydromorphone Hcl 1 Mg/Ml Syringe) 1 mg IVPUSH Q4H PRN; Protocol PRN Reason: Pain, Severe (Pain Scale 7-10) Last Admin: 07/16/23 10:25 Dose: 1 mg Gentamicin Sulfate/Sodium Chloride (Garamycin) 80 mg in 100 mls @ 100 mls/hr IV Q8H [facility] Last Admin: 07/16/23 09:08 Dose: Not Given Levetiracetam (Levetiracetam 250 Mg Tablet) 750 mg PO BID [facility] Last Admin: 07/16/23 09:06 Dose: 750 mg Levothyroxine Sodium (Levothyroxine Sodium 50 Mcg Tablet) 50 mcg PO DAILY@0600 [facility] Last Admin: 07/16/23 06:11 Dose: 50 mcg Loperamide HCl (Loperamide Hcl 2 Mg Capsule) 2 mg PO DAILY PRN PRN Reason: Diarrhea Loratadine (Loratadine 10 Mg Tablet) 10 mg PO DAILY [facility] Last Admin: 07/16/23 09:07 Dose: 10 mg Magnesium Oxide (Magnesium Oxide 400 Mg Tablet) 400 mg PO BID [facility] Last Admin: 07/16/23 09:07 Dose: 400 mg Melatonin (Melatonin 3 Mg Tablet) 6 mg PO BEDTIME PRN PRN Reason: Insomnia Metronidazole (Metronidazole 0.75 % Vaginal Gel 70 Gm Tube) 1 gm VAGINAL DAILY [facility] Stop: 07/19/23 09:01 Last Admin: 07/16/23 10:35 Dose: 1 gm Midodrine (Midodrine Hcl 5 Mg Tablet) 5 mg PO TID [facility] Last Admin: 07/16/23 09:07 Dose: 5 mg Multivitamins/Vitamin C (Multivitamin Tablet) 1 tab PO DAILY [facility] Last Admin: 07/16/23 09:07 Dose: 1 tab Omeprazole (Omeprazole 20 Mg Capsule.Dr) 20 mg PO BID@0630,1630 [facility] Ondansetron HCl (Ondansetron Hcl 4 Mg/2 Ml Vial) 4 mg IVPUSH Q8H PRN PRN Reason: Nausea and Vomiting Last Admin: 07/15/23 12:46 Dose: 4 mg Oxybutynin Chloride (Oxybutynin Chloride 5 Mg Tablet) 5 mg PO BID [facility] Last Admin: 07/16/23 09:07 Dose: 5 mg Sodium Chloride (0.9 % Sodium Chloride Flush 3 Ml Syringe) 3 ml IVFLUSH QSHIFT [facility] Last Admin: 07/16/23 09:08 Dose: 3 ml Thiamine HCl (Thiamine Hcl 100 Mg Tablet) 100 mg PO DAILY [facility] Last Admin: 07/16/23 09:07 Dose: 100 mg Trazodone HCl (Trazodone Hcl 50 Mg Tablet) 50 mg PO BEDTIME [facility] Last Admin: 07/15/23 21:27 Dose: 50 mg Home Medications Medication Instructions Recorded Confirmed Last Taken Type loperamide 2 mg capsule 2 mg PO NEEDED PRN Diarrhea 01/07/22 08/31/23 01/06/22 History magnesium oxide 400 mg (241.3 mg 1 tab PO BID 01/07/22 08/31/23 01/06/22 History magnesium) tablet potassium chloride 10 mEq 10 meq PO BID 07/14/23 08/31/23 Unknown History capsule,extended release Physical Exam 2 Vital Signs: Vital Signs: Last Vital Signs Temp 97.2 F 07/16/23 08:00 Pulse 76 07/16/23 09:53 Resp 16 07/16/23 08:00 BP 101/56 L 07/16/23 09:53 Pulse Ox 92 07/16/23 09:53 O2 Del Method Room Air 07/16/23 08:00 BMI result Body Mass Index 22.8 Const: General: cooperative, healthy appearing, comfortable and no acute distress Orientation/consciousness: patient oriented x3 HEENT: Face and sinus: Yes normal facial exam Mouth: moist mucous membranes Neck: Neck: Yes normal visual inspection, Yes full ROM and Yes trachea midline Chest: Chest palpation & inspection: normal inspection of the chest Resp: Effort & Inspection: normal respiratory effort, able to speak in complete sentences and no respiratory distress GI: Inspection: Yes normal to inspection Back/Spine/Pelvis: Cervical Spine: normal cervical lordosis Thoracic/Lumbar Spine: thoracic and lumbar spine normal to inspection Skin: General skin exam: no rashes or lesions noted Neuro: General: patient oriented x3, tone normal and moves all extremities Extrem: General: Yes normal to inspection and Yes capillary refill normal Results Labs 07/18/23 05:42 07/18/23 05:42 Labs: Urine 07/13/23 Range/Units 22:37 Urine Color Yellow Urine Appearance Turbid Urine pH 5.5 (5.0-9.0) Ur Specific Ramsay 1.010 (1.005-1.025) Urine Protein Negative (Neg-Trace) mg/dL Urine Glucose (UA) Negative (Negative) mg/dL All other labs normal. Assessment and Plan (1) UTI (urinary tract infection): Status: Acute Plan Suppression Time Spent With Patient Time: Total time managing care of this patient today ____ minutes. Procedures Date of Service Date of Service: 09/13/23
[2023-07-16 15:54] VITALS: BP 103/57; PULSE 76; RESP 20; TEMP 36.1; O2SAT 96
[2023-07-16 20:00] VITALS: BP 96/56; PULSE 80; RESP 20; TEMP 36; O2SAT 96
[2023-07-16] MEDS: ondansetron HCL 4 MG/2 ML VIAL IVPUSH (22:30)
[2023-07-16] MEDS: Amitriptyline HCl 25 MG TABLET 12.5 MG PO (22:36)
[2023-07-16] MEDS: diphenhydrAMINE HCL 25 MG CAPSULE 50 MG PO (22:37)
[2023-07-16] MEDS: traZODone HCL 50 MG TABLET PO (22:37)
[2023-07-16] MEDS: Atorvastatin Calcium 20 MG TABLET PO (22:38)
[2023-07-17] MEDS: diphenhydrAMINE HCL 50 MG/ML VIAL IVPUSH ×3 (00:43→16:01)
[2023-07-17] MEDS: Gentamicin Sulfate/NaCl 80 MG/100 ML PIGGYBACK 100 MG IV ×3 (00:43→17:02)
[2023-07-17] MEDS: Omeprazole 20 MG CAPSULE.DR PO ×2 (05:45→15:29)
[2023-07-17] MEDS: Levothyroxine Sodium 50 MCG TABLET PO (05:45)
[2023-07-17 05:50] VITALS: BP 103/56; PULSE 83; RESP 18
[2023-07-17] MEDS: HYDROmorphone HCl 1 MG/ML SYRINGE IVPUSH ×4 (05:57→20:37)
[2023-07-17 08:00] VITALS: PULSE 82; RESP 18; TEMP 36.5; O2SAT 97
[2023-07-17] MEDS: 0.9 % Sodium Chloride Flush 3 ML SYRINGE IVFLUSH ×3 (08:29→20:51)
[2023-07-17] MEDS: Fluticasone/Vilanterol 100/25 BLST.W.DEV 1 PUFF INHALE (08:33)
[2023-07-17 08:35] VITALS: PULSE 79; RESP 18; O2SAT 98
[2023-07-17] MEDS: levETIRAcetam 250 MG TABLET 750 MG PO ×2 (08:36→20:46)
[2023-07-17] MEDS: Dicyclomine HCl 10 MG CAPSULE 20 MG PO ×2 (08:36→20:45)
[2023-07-17] MEDS: Midodrine HCl 5 MG TABLET PO ×3 (08:36→20:49)
[2023-07-17] MEDS: Multivitamin TABLET 1 TAB PO (08:36)
[2023-07-17] MEDS: DULoxetine HCl 60 MG CAPSULE.DR PO (08:36)
[2023-07-17] MEDS: oxyBUTYnin chloride 5 MG TABLET PO ×2 (08:36→20:53)
[2023-07-17] MEDS: Magnesium Oxide 400 MG TABLET PO ×2 (08:36→20:49)
[2023-07-17] MEDS: Apixaban 5 MG TABLET PO ×2 (08:37→20:47)
[2023-07-17] MEDS: Thiamine HCL 100 MG TABLET PO (08:37)
[2023-07-17] MEDS: Digoxin 0.125 MG TABLET PO (08:37)
[2023-07-17] MEDS: Loratadine 10 MG TABLET PO (08:37)
[2023-07-17] MEDS: metroNIDAZOLE 0.75 % Vaginal Gel 70 GM TUBE VAGINAL (10:29)
--- NOTE | 2023-07-17 14:19 | P.PNIM_ITS ---
Subjective Subjective Date of Service: 07/17/23 Interval History: Seen and evaluated one more day of IV antibiotics reporting pain in her abdomen positive orthostatics no fever or chills Review of Systems Review of Systems: Yes all other systems are reviewed and are negative Physical Exam 2 Vital Signs: Vital Signs: Last Vital Signs Temp 97.7 F 07/17/23 08:00 Pulse 79 07/17/23 08:35 Resp 18 07/17/23 08:35 BP 103/56 L 07/17/23 05:50 Pulse Ox 97 07/17/23 08:00 O2 Del Method Room Air 07/17/23 08:00 BMI result Body Mass Index 22.8 Const: Other: Constitutional : Awake, interactive, not in distress Neck : Normal inspection, Supple Cardiovascular : RRR, no JVP, no lower extremity edema Respiratory : good bilateral air entry, no crackles, wheezes or rhonchi Gastrointestinal: soft, lax, Normal bowel sounds, no significant tenderness in suprapubic area, Colostomy in place. Skin : Warm, Dry Neurological : Alert & oriented x3, No focal deficit Objective Data Active Medications Acetaminophen (Acetaminophen 325 Mg Tablet) 650 mg PO Q6H PRN PRN Reason: Pain, Mild (Pain Scale 1-3) Albuterol Sulfate (Albuterol Sulfate 90 Mcg 8 Gm Inhaler) 2 puff INHALE Q6H PRN PRN Reason: for muscle spasm Amitriptyline HCl (Amitriptyline Hcl 25 Mg Tablet) 12.5 mg PO BEDTIME [facility] Last Admin: 07/16/23 22:36 Dose: 12.5 mg Documented By: DADA Apixaban (Apixaban 5 Mg Tablet) 5 mg PO BID [facility] Last Admin: 07/17/23 08:37 Dose: 5 mg Documented By: ANICETO Atorvastatin Calcium (Atorvastatin Calcium 20 Mg Tablet) 20 mg PO BEDTIME [facility] Last Admin: 07/16/23 22:38 Dose: 20 mg Documented By: DADA Cholestyramine Resin (Cholestyramine (With Sugar) 4 Gm Powd.Pack) 4 gm PO BID [facility] Last Admin: 07/17/23 08:35 Dose: Not Given Documented By: ANICETO Non-Admin Reason: Patient Refused Dicyclomine HCl (Dicyclomine Hcl 10 Mg Capsule) 20 mg PO BID [facility] Last Admin: 07/17/23 08:36 Dose: 20 mg Documented By: ANICETO Digoxin (Digoxin 0.125 Mg Tablet) 0.125 mg PO DAILY [facility] Last Admin: 07/17/23 08:37 Dose: 0.125 mg Documented By: ANICETO Diphenhydramine HCl (Diphenhydramine Hcl 50 Mg/Ml Vial) 50 mg IVPUSH Q6H PRN PRN Reason: Pre-med Last Admin: 07/17/23 08:34 Dose: 50 mg Documented By: ANICETO Diphenhydramine HCl (Diphenhydramine Hcl 25 Mg Capsule) 50 mg PO BEDTIME [facility] Last Admin: 07/16/23 22:37 Dose: 50 mg Documented By: DADA Duloxetine HCl (Duloxetine Hcl 60 Mg Capsule.Dr) 60 mg PO DAILY [facility] Last Admin: 07/17/23 08:36 Dose: 60 mg Documented By: ANICETO Fluticasone/Vilanterol (Fluticasone/Vilanterol 100/25 Blst.W.Dev) 1 puff INHALE RDAILY [facility] Last Admin: 07/17/23 08:33 Dose: 1 puff Documented By: BRESNE Hydromorphone HCl (Hydromorphone Hcl 1 Mg/Ml Syringe) 1 mg IVPUSH Q4H PRN; Protocol PRN Reason: Pain, Severe (Pain Scale 7-10) Last Admin: 07/17/23 10:16 Dose: 1 mg Documented By: ANICETO Gentamicin Sulfate/Sodium Chloride (Garamycin) 80 mg in 100 mls @ 100 mls/hr IV Q8H [facility] Last Infusion: 07/17/23 10:04 Dose: Infused Documented By: ANICETO Levetiracetam (Levetiracetam 250 Mg Tablet) 750 mg PO BID [facility] Last Admin: 07/17/23 08:36 Dose: 750 mg Documented By: ANICETO Levothyroxine Sodium (Levothyroxine Sodium 50 Mcg Tablet) 50 mcg PO DAILY@0600 [facility] Last Admin: 07/17/23 05:45 Dose: 50 mcg Documented By: DADA Loperamide HCl (Loperamide Hcl 2 Mg Capsule) 2 mg PO DAILY PRN PRN Reason: Diarrhea Loratadine (Loratadine 10 Mg Tablet) 10 mg PO DAILY [facility] Last Admin: 07/17/23 08:37 Dose: 10 mg Documented By: ANICETO Magnesium Oxide (Magnesium Oxide 400 Mg Tablet) 400 mg PO BID [facility] Last Admin: 07/17/23 08:36 Dose: 400 mg Documented By: ANICETO Melatonin (Melatonin 3 Mg Tablet) 6 mg PO BEDTIME PRN PRN Reason: Insomnia Metronidazole (Metronidazole 0.75 % Vaginal Gel 70 Gm Tube) 1 gm VAGINAL DAILY [facility] Stop: 07/19/23 09:01 Last Admin: 07/17/23 10:29 Dose: 1 gm Documented By: ISIDRA Midodrine (Midodrine Hcl 5 Mg Tablet) 5 mg PO TID [facility] Last Admin: 07/17/23 08:36 Dose: 5 mg Documented By: ANICETO Multivitamins/Vitamin C (Multivitamin Tablet) 1 tab PO DAILY [facility] Last Admin: 07/17/23 08:36 Dose: 1 tab Documented By: ANICETO Omeprazole (Omeprazole 20 Mg Capsule.Dr) 20 mg PO BID@0630,1630 [facility] Last Admin: 07/17/23 05:45 Dose: 20 mg Documented By: DADA Ondansetron HCl (Ondansetron Hcl 4 Mg/2 Ml Vial) 4 mg IVPUSH Q8H PRN PRN Reason: Nausea and Vomiting Last Admin: 07/16/23 22:30 Dose: 4 mg Documented By: DADA Oxybutynin Chloride (Oxybutynin Chloride 5 Mg Tablet) 5 mg PO BID [facility] Last Admin: 07/17/23 08:36 Dose: 5 mg Documented By: ANICETO Sodium Chloride (0.9 % Sodium Chloride Flush 3 Ml Syringe) 3 ml IVFLUSH [facility] Last Admin: 07/17/23 08:29 Dose: 3 ml Documented By: ANICETO Thiamine HCl (Thiamine Hcl 100 Mg Tablet) 100 mg PO DAILY [facility] Last Admin: 07/17/23 08:37 Dose: 100 mg Documented By: ANICETO Trazodone HCl (Trazodone Hcl 50 Mg Tablet) 50 mg PO BEDTIME [facility] Last Admin: 07/16/23 22:37 Dose: 50 mg Documented By: DADA Labs 07/15/23 05:49 10/22/23 05:49 Assessment and Plan (1) Acute suprapubic pain: Status: Acute (2) Bilateral flank pain: Status: Acute (3) Acute pyelonephritis: Status: Acute Plan This is a 67-year-old female with pertinent history of neurogenic bladder who self caths, paroxysmal atrial fibrillation on anticoagulation, mood disorder, seizure disorder, hypothyroidism, gastroesophageal reflux disease, COPD not on home oxygen who presents to the emergency department for evaluation of dysuria. # Acute UTI with pyelonephritis patient with neurogenic bladder and self catheterization history of multiple anaphylactic allergies to p.o. medications IV gentamicin Day 4/5 Cx grewing E.Coli Infectious Disease; Hold on Abx as Fosfomycin was not covered by insurance , finish at least 5 days of IV Gentamycin # Abd pain and indigestion med tablets passing through the colostomy Pending GI eval increase Omeprazole to 20 bid # Urine retention Likely the cause of lower abdominal pain Degroot in place Urology following # dilated pancreatic duct MRCP did not show any masses or collections # Paroxysmal atrial fibrillation On anticoagulation. Rate controlled in the ER # Mood disorder Continue home mood stabilizers # Seizure disorder On Keppra # Hypothyroidism On Synthroid # COPD No exacerbation during admission. Continue home inhalers # Gastroesophageal reflux disease On PPI DVT prophylaxis: Eliquis Admit as inpatient and will requires overnight minimum hospital stay for IV antibiotics Time Spent With Patient Time: Total time managing care of this patient today ____ minutes. Quality Stroke Does the patient have a stroke diagnosis?: No VTE Prior VTE?: No VTE Risk Level:: Medical - moderate - high VTE Device Contraindication: Treatment Not Indicated VTE Drug Contraindication: N/A - Med Ordered
[2023-07-17] MEDS: ondansetron HCL 4 MG/2 ML VIAL IVPUSH (15:01)
[2023-07-17 15:54] VITALS: BP 103/60; PULSE 78; RESP 18; TEMP 36.6; O2SAT 97
[2023-07-17 16:08] VITALS: BP 103/60; PULSE 78; O2SAT 97
[2023-07-17 19:45] VITALS: BP 107/59; PULSE 75; RESP 20; TEMP 36.5; O2SAT 95
[2023-07-17] MEDS: Melatonin 3 MG TABLET 6 MG PO (20:43)
[2023-07-17] MEDS: diphenhydrAMINE HCL 25 MG CAPSULE 50 MG PO (20:45)
[2023-07-17] MEDS: Amitriptyline HCl 25 MG TABLET 12.5 MG PO (20:47)
[2023-07-17] MEDS: Atorvastatin Calcium 20 MG TABLET PO (20:47)
[2023-07-17] MEDS: traZODone HCL 50 MG TABLET PO (20:49)
--- NOTE | 2023-07-17 21:47 | CONS_ITS ---
DATE OF SERVICE: 07/17/2023 REFERRING PHYSICIAN: Azul Frances MD REASON FOR CONSULTATION: Abdominal pain and gastroesophageal reflux disease. HISTORY OF PRESENT ILLNESS: The patient is a pleasant 67-year-old woman, who was admitted to the hospital on July 13, after she presented to the emergency room with complaints of dysuria. Consultation is requested regarding the patient's abdominal pain and gastroesophageal reflux disease. She describes a history of abdominoperineal resection for rectal cancer approximately 30 years ago with a permanent colostomy. She has been followed for this in [place]. She has also noted some swelling around the ostomy site and occasional problems with not passing stool. She has undergone followup colonoscopies, most recently within the past 3 years by her report. She also notices what appeared to be pill material coming through into her ostomy bag. As part of her evaluation, she underwent imaging with CT scanning of the abdomen and pelvis. This is reviewed and is interpreted as showing pneumobilia with biliary ductal dilation, which was unchanged from 2021. She is status post cholecystectomy. Her pancreatic duct was dilated to 5 mm and MRI imaging was obtained, which showed no choledocholithiasis and nothing to be suspicious in the pancreas. No mass was seen. An ultrasound of the bladder was obtained, but did not evaluate the liver. PAST MEDICAL HISTORY: 1. Neurogenic bladder. 2. Pulmonary embolism. 3. Disc disease. 4. Celiac disease. 5. Hyperlipidemia. 6. Hypothyroidism. 7. COPD. 8. Pseudo-seizure and conversion disorder. 9. Colon cancer with APR and permanent colostomy. 10. Paroxysmal atrial fibrillation. 11. DVT. 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 CURRENT MEDICATIONS: Current medication list is reviewed in the chart. ALLERGIES: MULTIPLE MEDICATION ALLERGIES ARE REVIEWED. FAMILY HISTORY: This is reviewed with the patient. SOCIAL HISTORY: There is no current tobacco, alcohol, or substance abuse. REVIEW OF SYSTEMS: SKIN: No pruritus. HEENT: Negative. CARDIOPULMONARY: No shortness of breath or chest pain. GASTROINTESTINAL: As above. GENITOURINARY: Negative. NEUROPSYCHIATRIC: Negative. PHYSICAL EXAMINATION: GENERAL: Shows a pleasant female, lying comfortably in bed. VITAL SIGNS: Reviewed in the electronic medical record and are stable, SKIN: Anicteric. HEENT: Shows no scleral icterus. NECK: Without lymphadenopathy or thyromegaly. LUNGS: Clear. HEART: Shows a regular rate and rhythm. S1, S2. No murmur. ABDOMEN: Soft without focal masses or tenderness. Bowel sounds are present. No organomegaly is noted. She shows markedly unusual diffuse tenderness to palpation, but is somewhat distractible and appears comfortable. EXTREMITIES: Without edema. LABORATORY DATA AND IMAGING STUDIES: Reviewed. IMPRESSION: 1. Gastroesophageal reflux disease. 2. Abdominal pain. At this time, I reassured her that there are no worrisome findings on her CT scan nor does there appear to be any herniation at the site of the colostomy. I would recommend she follow up with Colorectal Surgery in [place] regarding her complaints about swelling at the site. For her reflux, her omeprazole has been increased to b.i.d. and I would recommend continuing this. Consideration could be given to upper endoscopy electively if she has no improvement, and I agree with treating her with dicyclomine for her complaints of abdominal pain, which seem out of proportion to her abdominal exam when she is distracted. Thanks for asking me to see her. I will follow her in the hospital with you. MD CRISTINA De La Cruz/ROSANNA / [id number]
[2023-07-18] MEDS: Gentamicin Sulfate/NaCl 80 MG/100 ML PIGGYBACK 200 MG IV (00:07)
[2023-07-18 05:56] LABS: Hematocrit 34.3 % (37.0-47.0); Hemoglobin 11.4 g/dl (12.0-16.0); Mean Corpuscular HGB Conc 33.2 g/dl (31.0-35.0); Mean Corpuscular Hemoglobin 30.3 pg (27.0-33.0); Mean Corpuscular Volume 91.2 fL (80.0-98.0); Mean Platelet Volume 8.8 fL (9.4-12.3); Platelet Count 243 X10*3/uL (160-400); Red Blood Count 3.76 X10*6/uL (4.20-5.50); Red Cell Distribution Width 12.8 % (11.0-16.0); White Blood Count 4.2 X10*3/uL (4.8-10.8)
[2023-07-18] MEDS: Omeprazole 20 MG CAPSULE.DR PO ×2 (06:03→16:02)
[2023-07-18] MEDS: Levothyroxine Sodium 50 MCG TABLET PO (06:03)
[2023-07-18] MEDS: HYDROmorphone HCl 1 MG/ML SYRINGE IVPUSH ×5 (06:08→23:33)
[2023-07-18 06:12] LABS: Anion Gap 14 (12-20); Blood Urea Nitrogen 17 mg/dL (9-16); Calcium 9.7 mg/dL (8.4-10.2); Carbon Dioxide 30 mmol/L (22-29); Chloride 96 mmol/L (96-108); Creatinine Clr Calc Pharmacy 63.1; Estimated Glomerular Filt Rate > 60; Glucose Random 100 mg/dL (60-115); Sodium 136 mmol/L (135-145)
[2023-07-18 08:00] VITALS: BP 100/55; PULSE 66; RESP 18; TEMP 36.5; O2SAT 93
[2023-07-18] MEDS: Fluticasone/Vilanterol 100/25 BLST.W.DEV 1 PUFF INHALE (08:39)
[2023-07-18 08:41] VITALS: PULSE 65; RESP 18; O2SAT 96
[2023-07-18] MEDS: Gentamicin Sulfate/NaCl 80 MG/100 ML PIGGYBACK 50 MG IV (09:03)
[2023-07-18] MEDS: 0.9 % Sodium Chloride Flush 3 ML SYRINGE IVFLUSH ×3 (09:04→19:54)
[2023-07-18] MEDS: Magnesium Oxide 400 MG TABLET PO ×2 (09:04→19:54)
[2023-07-18] MEDS: Apixaban 5 MG TABLET PO ×2 (09:04→19:53)
[2023-07-18] MEDS: Multivitamin TABLET 1 TAB PO (09:04)
[2023-07-18] MEDS: oxyBUTYnin chloride 5 MG TABLET PO ×2 (09:04→19:53)
[2023-07-18] MEDS: Loratadine 10 MG TABLET PO (09:05)
[2023-07-18] MEDS: levETIRAcetam 250 MG TABLET 750 MG PO ×2 (09:05→19:51)
[2023-07-18] MEDS: Thiamine HCL 100 MG TABLET PO (09:05)
[2023-07-18] MEDS: Dicyclomine HCl 10 MG CAPSULE 20 MG PO ×2 (09:05→19:51)
[2023-07-18] MEDS: Midodrine HCl 5 MG TABLET PO ×3 (09:05→19:52)
[2023-07-18] MEDS: Digoxin 0.125 MG TABLET PO (09:05)
[2023-07-18] MEDS: DULoxetine HCl 60 MG CAPSULE.DR PO (09:05)
[2023-07-18] MEDS: diphenhydrAMINE HCL 50 MG/ML VIAL IVPUSH ×3 (09:15→23:33)
--- NOTE | 2023-07-18 10:10 | P.PNIM_ITS ---
Subjective Subjective Date of Service: 07/18/23 Interval History: still with abd pain Physical Exam 2 Vital Signs: Vital Signs: Last Vital Signs Temp 97.7 F 07/18/23 08:00 Pulse 65 07/18/23 08:41 Resp 18 07/18/23 08:41 BP 100/55 L 07/18/23 08:00 Pulse Ox 93 07/18/23 08:00 O2 Del Method Room Air 07/18/23 08:00 BMI result Body Mass Index 22.8 Const: Other: Constitutional : Awake, interactive, not in distress Neck : Normal inspection, Supple Cardiovascular : RRR, no JVP, no lower extremity edema Respiratory : good bilateral air entry, no crackles, wheezes or rhonchi Gastrointestinal: soft, lax, Normal bowel sounds, no significant tenderness in suprapubic area, Colostomy in place. Skin : Warm, Dry Neurological : Alert & oriented x3, No focal deficit Objective Data Active Medications Acetaminophen (Acetaminophen 325 Mg Tablet) 650 mg PO Q6H PRN PRN Reason: Pain, Mild (Pain Scale 1-3) Albuterol Sulfate (Albuterol Sulfate 90 Mcg 8 Gm Inhaler) 2 puff INHALE Q6H PRN PRN Reason: for muscle spasm Amitriptyline HCl (Amitriptyline Hcl 25 Mg Tablet) 12.5 mg PO BEDTIME [facility] Last Admin: 07/17/23 20:47 Dose: 12.5 mg Documented By: KARYN Apixaban (Apixaban 5 Mg Tablet) 5 mg PO BID [facility] Last Admin: 07/18/23 09:04 Dose: 5 mg Documented By: CORTEZ Atorvastatin Calcium (Atorvastatin Calcium 20 Mg Tablet) 20 mg PO BEDTIME [facility] Last Admin: 07/17/23 20:47 Dose: 20 mg Documented By: KARYN Cholestyramine Resin (Cholestyramine (With Sugar) 4 Gm Powd.Pack) 4 gm PO BID [facility] Last Admin: 07/18/23 09:06 Dose: Not Given Documented By: CORTEZ Non-Admin Reason: Patient Refused Dicyclomine HCl (Dicyclomine Hcl 10 Mg Capsule) 20 mg PO BID [facility] Last Admin: 07/18/23 09:05 Dose: 20 mg Documented By: CORTEZ Digoxin (Digoxin 0.125 Mg Tablet) 0.125 mg PO DAILY [facility] Last Admin: 07/18/23 09:05 Dose: 0.125 mg Documented By: CORTEZ Diphenhydramine HCl (Diphenhydramine Hcl 50 Mg/Ml Vial) 50 mg IVPUSH Q6H PRN PRN Reason: Pre-med Last Admin: 07/18/23 09:15 Dose: 50 mg Documented By: CORTEZ Diphenhydramine HCl (Diphenhydramine Hcl 25 Mg Capsule) 50 mg PO BEDTIME [facility] Last Admin: 07/17/23 20:45 Dose: 50 mg Documented By: KARYN Duloxetine HCl (Duloxetine Hcl 60 Mg Capsule.Dr) 60 mg PO DAILY [facility] Last Admin: 07/18/23 09:05 Dose: 60 mg Documented By: CORTEZ Fluticasone/Vilanterol (Fluticasone/Vilanterol 100/25 Blst.W.Dev) 1 puff INHALE RDAILY [facility] Last Admin: 07/18/23 08:39 Dose: 1 puff Documented By: BRESALEX Hydromorphone HCl (Hydromorphone Hcl 1 Mg/Ml Syringe) 1 mg IVPUSH Q4H PRN; Protocol PRN Reason: Pain, Severe (Pain Scale 7-10) Last Admin: 07/18/23 06:08 Dose: 1 mg Documented By: KARYN Gentamicin Sulfate/Sodium Chloride (Garamycin) 80 mg in 100 mls @ 100 mls/hr IV Q8H [facility] Last Admin: 07/18/23 09:03 Dose: 50 mls/hr Documented By: CORTEZ Levetiracetam (Levetiracetam 250 Mg Tablet) 750 mg PO BID [facility] Last Admin: 07/18/23 09:05 Dose: 750 mg Documented By: CORTEZ Levothyroxine Sodium (Levothyroxine Sodium 50 Mcg Tablet) 50 mcg PO DAILY@0600 [facility] Last Admin: 07/18/23 06:03 Dose: 50 mcg Documented By: KARYN Loperamide HCl (Loperamide Hcl 2 Mg Capsule) 2 mg PO DAILY PRN PRN Reason: Diarrhea Loratadine (Loratadine 10 Mg Tablet) 10 mg PO DAILY [facility] Last Admin: 07/18/23 09:05 Dose: 10 mg Documented By: CORTEZ Magnesium Oxide (Magnesium Oxide 400 Mg Tablet) 400 mg PO BID [facility] Last Admin: 07/18/23 09:04 Dose: 400 mg Documented By: CORTEZ Melatonin (Melatonin 3 Mg Tablet) 6 mg PO BEDTIME PRN PRN Reason: Insomnia Last Admin: 07/17/23 20:43 Dose: 6 mg Documented By: KARYN Metronidazole (Metronidazole 0.75 % Vaginal Gel 70 Gm Tube) 1 gm VAGINAL DAILY [facility] Stop: 07/19/23 09:01 Last Admin: 07/17/23 10:29 Dose: 1 gm Documented By: ISIDRA Midodrine (Midodrine Hcl 5 Mg Tablet) 5 mg PO TID [facility] Last Admin: 07/18/23 09:05 Dose: 5 mg Documented By: CORTEZ Multivitamins/Vitamin C (Multivitamin Tablet) 1 tab PO DAILY [facility] Last Admin: 07/18/23 09:04 Dose: 1 tab Documented By: CORTEZ Omeprazole (Omeprazole 20 Mg Capsule.Dr) 20 mg PO BID@0630,1630 [facility] Last Admin: 07/18/23 06:03 Dose: 20 mg Documented By: KARYN Ondansetron HCl (Ondansetron Hcl 4 Mg/2 Ml Vial) 4 mg IVPUSH Q8H PRN PRN Reason: Nausea and Vomiting Last Admin: 07/17/23 15:01 Dose: 4 mg Documented By: ANICETO Oxybutynin Chloride (Oxybutynin Chloride 5 Mg Tablet) 5 mg PO BID [facility] Last Admin: 07/18/23 09:04 Dose: 5 mg Documented By: CORTEZ Sodium Chloride (0.9 % Sodium Chloride Flush 3 Ml Syringe) 3 ml IVFLUSH QSHIFT [facility] Last Admin: 07/18/23 09:04 Dose: 3 ml Documented By: CORTEZ Thiamine HCl (Thiamine Hcl 100 Mg Tablet) 100 mg PO DAILY [facility] Last Admin: 07/18/23 09:05 Dose: 100 mg Documented By: CORTEZ Trazodone HCl (Trazodone Hcl 50 Mg Tablet) 50 mg PO BEDTIME [facility] Last Admin: 07/17/23 20:49 Dose: 50 mg Documented By: KARYN Labs 07/18/23 05:42 07/18/23 05:42 Labs: Laboratory Results - last 24 hr 07/18/23 05:42 MCV 91.2 MCH 30.3 MCHC 33.2 RDW 12.8 Plt Count 243 MPV 8.8 L Absolute Nucleated RBC 0.000 Nucleated RBC % (auto) 0.0 Anion Gap 14 Estim Creat Clear Calc 63.1 Estimated GFR > 60 Random Glucose 100 Calcium 9.7 D Assessment and Plan (1) Acute suprapubic pain: Status: Acute (2) Bilateral flank pain: Status: Acute (3) Acute pyelonephritis: Status: Acute Plan 67F PMH neurogenic bladder who self caths, paroxysmal atrial fibrillation on anticoagulation, mood disorder, seizure disorder, hypothyroidism, gastroesophageal reflux disease, COPD presented with dysuria Acute UTI with pyelonephritis patient with neurogenic bladder and self catheterization history of multiple anaphylactic allergies to p.o. medications IV gentamicin Day 01/26 Cx grewing E.Coli Infectious Disease; Hold on Abx as Fosfomycin was not covered by insurance , finish at least 5 days of IV Gentamycin Abd pain and indigestion med tablets passing through the colostomy increased Omeprazole to 20 bid Urine retention Likely the cause of lower abdominal pain Degroot in place Urology following dilated pancreatic duct MRCP did not show any masses or collections Paroxysmal atrial fibrillation On anticoagulation. Rate controlled in the ER Mood disorder Continue home mood stabilizers Seizure disorder On Keppra Hypothyroidism On Synthroid COPD No exacerbation during admission. Continue home inhalers Gastroesophageal reflux disease On PPI DVT prophylaxis: Eliquis Admit as inpatient and will requires overnight minimum hospital stay for IV antibiotics Time Spent With Patient Time: Total time managing care of this patient today ____ minutes. Quality Stroke Does the patient have a stroke diagnosis?: No VTE Prior VTE?: No VTE Risk Level:: Medical - moderate - high VTE Device Contraindication: Treatment Not Indicated VTE Drug Contraindication: N/A - Med Ordered
[2023-07-18] MEDS: metroNIDAZOLE 0.75 % Vaginal Gel 70 GM TUBE VAGINAL (10:17)
[2023-07-18] MEDS: ondansetron HCL 4 MG/2 ML VIAL IVPUSH (10:59)
--- NOTE | 2023-07-18 14:04 | MHC.CM.PN ---
IMM 07/18/23, Pt not ready for DC yet, still on IV AB. HCP form completed and scanned into chart. DC plan is home with VNA services from [facility], updates have been sent, anticipating DC on 07/19/23, pt to go home via [facility] shuttle. CM to follow and assist with DC plan.
[2023-07-18 16:00] VITALS: BP 106/57; PULSE 79; RESP 19; TEMP 36.9; O2SAT 94
[2023-07-18] MEDS: Gentamicin Sulfate/NaCl 80 MG/100 ML PIGGYBACK 100 MG IV ×2 (16:03→23:33)
[2023-07-18] MEDS: Amitriptyline HCl 25 MG TABLET 12.5 MG PO (19:52)
[2023-07-18] MEDS: traZODone HCL 50 MG TABLET PO (19:53)
[2023-07-18] MEDS: diphenhydrAMINE HCL 25 MG CAPSULE 50 MG PO (19:53)
[2023-07-18] MEDS: Atorvastatin Calcium 20 MG TABLET PO (19:54)
[2023-07-18] MEDS: Melatonin 3 MG TABLET 6 MG PO (19:54)
[2023-07-18 19:56] VITALS: BP 106/63; PULSE 69; RESP 20; TEMP 36.4; O2SAT 96
[2023-07-19 03:47] VITALS: BP 109/71; PULSE 71; RESP 16; TEMP 36.1; O2SAT 93
[2023-07-19] MEDS: ondansetron HCL 4 MG/2 ML VIAL IVPUSH (04:37)
[2023-07-19] MEDS: HYDROmorphone HCl 1 MG/ML SYRINGE IVPUSH ×2 (04:41→08:42)
[2023-07-19] MEDS: Levothyroxine Sodium 50 MCG TABLET PO (05:47)
[2023-07-19] MEDS: Omeprazole 20 MG CAPSULE.DR PO (05:47)
[2023-07-19] MEDS: diphenhydrAMINE HCL 50 MG/ML VIAL IVPUSH (07:16)
[2023-07-19 08:00] VITALS: BP 117/65; PULSE 76; RESP 16; TEMP 36.1; O2SAT 95
[2023-07-19] MEDS: Gentamicin Sulfate/NaCl 80 MG/100 ML PIGGYBACK 100 MG IV (08:42)
[2023-07-19] MEDS: oxyBUTYnin chloride 5 MG TABLET PO (08:43)
[2023-07-19] MEDS: Magnesium Oxide 400 MG TABLET PO (08:43)
[2023-07-19] MEDS: 0.9 % Sodium Chloride Flush 3 ML SYRINGE IVFLUSH (08:43)
[2023-07-19] MEDS: Digoxin 0.125 MG TABLET PO (08:43)
[2023-07-19] MEDS: Loratadine 10 MG TABLET PO (08:43)
[2023-07-19] MEDS: Apixaban 5 MG TABLET PO (08:43)
[2023-07-19] MEDS: Multivitamin TABLET 1 TAB PO (08:43)
[2023-07-19] MEDS: levETIRAcetam 250 MG TABLET 750 MG PO (08:43)
[2023-07-19] MEDS: Midodrine HCl 5 MG TABLET PO (08:43)
[2023-07-19] MEDS: Dicyclomine HCl 10 MG CAPSULE 20 MG PO (08:43)
[2023-07-19] MEDS: DULoxetine HCl 60 MG CAPSULE.DR PO (08:43)
[2023-07-19] MEDS: Thiamine HCL 100 MG TABLET PO (08:43)
[2023-07-19] MEDS: metroNIDAZOLE 0.75 % Vaginal Gel 70 GM TUBE VAGINAL (08:44)
[2023-07-19] MEDS: Fluticasone/Vilanterol 100/25 BLST.W.DEV 1 PUFF INHALE (08:45)
[2023-07-19 08:46] VITALS: PULSE 86; RESP 16; O2SAT 94
[2023-07-19 09:30] VITALS: PULSE 86
--- NOTE | 2023-07-19 11:27 | P.DS_ITS ---
DS: Providers Provider Date of Service: 07/19/23 Date of admission: 07/13/23 21:47 Primary care physician: Bryson Wright MD Consults: 07/13/23 22:51 Consult to Infectious Diseases Routine Consulting Provider: [facility] Infect[facility] Disease Reason for consultation: UTI 07/16/23 11:26 Consult to Urology Routine Consulting Provider: Trae Colin Reason for consultation: recurrent UTI, incomplete emptying of bladder. 07/16/23 13:36 Consult to Gastroenterology Routine Consulting Provider: Manny Sandhu Reason for consultation: abd pain, indigestion, Med Tablets going through DS: Diagnosis Discharge Diagnosis (1) Acute suprapubic pain: Status: Acute (2) Bilateral flank pain: Status: Acute (3) Acute pyelonephritis: Status: Acute DS: Summary Hospital Course Hospital Course: from initial hpi: 67-year-old female with pertinent history of neurogenic bladder who self caths, paroxysmal atrial fibrillation on anticoagulation, mood disorder, seizure disorder, hypothyroidism, gastroesophageal reflux disease, COPD not on home oxygen who presents to the emergency department for evaluation of dysuria. Patient states her symptoms have been ongoing for the last 1 week. She has been having dysuria and needing to self-catheterize with increasing frequency. Also has been having left back pain. Admits chills. Does have a history of UTI and was previously treated with IV gentamicin and discharged on p.o. tobramycin. Patient was seen by her PCP on the day of presentation and UA was done which was concerning for UTI. Patient reports anaphylactic allergies to multiple p.o. medications and was asked to come to the ER. Does have a history of colon cancer status post surgery and colostomy. No chest discomfort, palpitations, shortness of breath, abdominal pain hospital course: Patient was admitted for acute UTI with pyelonephritis. Culture grew E coli. Patient was treated in patient with IV gentamicin for 5 days due to history of anaphylactic allergies to multiple p.o. medications. She continued to have abdominal pain and was treated with omeprazole for possible GI source and oxyb utynin for bladder spasms. For urinary retention she has Degroot in place and will follow up with Urology. For dilated pancreatic duct MRCP was performed which did not show any masses or collection. For paroxysmal atrial fibrillation she was continued on apixaban, digoxin. For mood disorder continued on Cymbalta, amitriptyline, seizure disorder continue on Keppra. For hypothyroidism continue on Synthroid. For COPD was stable. Patient is feeling better will be discharged home. Time Spent with Patient Time attestation: Total time managing care of this patient today ____ minutes. Discharge coordination time: Greater than 30 minutes Quality: Safe Use of Opioids Does Pt have an Active Cancer Diagnosis on the Problem List?: No Quality: Stroke Does the patient have a stroke diagnosis?: No Physical Exam Vital Signs: Vital Signs: Last Vital Signs Temp 96.9 F 07/19/23 08:00 Pulse 86 07/19/23 09:30 Resp 16 07/19/23 08:46 BP 117/65 07/19/23 08:00 Pulse Ox 95 07/19/23 08:00 O2 Del Method Room Air 07/19/23 08:00 BMI result Body Mass Index 22.8 Const: Other: Constitutional : Awake, interactive, not in distress Neck : Normal inspection, Supple Cardiovascular : RRR, no JVP, no lower extremity edema Respiratory : good bilateral air entry, no crackles, wheezes or rhonchi Gastrointestinal: soft, lax, Normal bowel sounds, no significant tenderness in suprapubic area, Colostomy in place. Skin : Warm, Dry Neurological : Alert & oriented x3, No focal deficit DS: Data Data Completed and Pending Completed studies during hospitalization [Text1]: Procedures Insertion of Infusion Device into Left Brachial Vein, Percutaneous Approach (01/07/22) Discharge Plan Discharge Anticipated Discharge Date/Time: 07/19/23 11:24 Patient Disposition: Home, Self-Care Discharge Diagnosis: uti Referrals: Bryson Wright MD [Primary Care Provider] - 1 Week Trae Colin MD [Physician] - 1 Week Discharge Medications: New midodrine 5 mg Tablet 5 mg PO TID Qty: 90 0RF Continued loratadine 10 mg tablet 10 mg PO DAILY Qty: 90 1RF (DME) colostomy bags Misc See Rx Instructions .Route Qty: 5 5RF Rx Instructions: As directed (DME) colostomy supplies See Rx Instructions .Route .MEDSUPPLY Qty: 1 11RF Rx Instructions: As directed loperamide 2 mg capsule 2 mg PO NEEDED PRN (Reason: Diarrhea) thiamine HCl (vitamin B1) [Vitamin B-1] 100 mg tablet 1 tab PO DAILY magnesium oxide 400 mg (241.3 mg magnesium) tablet 1 tab PO BID diphenhydramine HCl [Banophen] 25 mg Tablet 50 mg PO BEDTIME potassium chloride 10 mEq Capsule, Extended Release 10 meq PO BID trazodone 50 mg Tablet 50 mg PO BEDTIME amitriptyline 25 mg Tablet 25 mg PO BEDTIME dicyclomine 20 mg Tablet 20 mg PO BID pantoprazole 40 mg tablet,delayed release (DR/EC) 40 mg PO DAILY oxybutynin chloride 5 mg Tablet 5 mg PO BID cholestyramine (with sugar) 4 gram Powder In Packet 4 g PO BID Rx Instructions: administer w/meal; avoid other meds within 1hr before or 4-6hr after dose duloxetine [Cymbalta] 60 mg Capsule,Delayed Release(Dr/Ec) 60 mg PO DAILY CertaVite Senior 0.4 mg-300 mcg- 250 mcg Tablet 1 tab PO DAILY budesonide-formoterol [Symbicort] 80-4.5 mcg/actuation Hfa Aerosol Inhaler 2 puff INHALATION BID Eliquis 5 mg tablet 5 mg PO BID 30 Days Qty: 60 3RF digoxin 125 mcg (0.125 mg) tablet 125 mcg PO DAILY Qty: 90 0RF Hold Instructions: Doctor's Order levetiracetam 750 mg tablet 750 mg PO BID 30 Days Qty: 60 3RF levothyroxine 50 mcg tablet 50 mcg PO DAILY Qty: 90 1RF simvastatin 40 mg tablet 40 mg PO BEDTIME Qty: 90 1RF albuterol sulfate 90 mcg/actuation HFA aerosol inhaler 2 puff inhalation Q6H PRN (Reason: for muscle spasm) Qty: 18 1RF lidocaine [Aspercreme (lidocaine)] 4 % adhesive patch,medicated 1 patch topical DAILY PRN (Reason: pain) Qty: 30 0RF Discharge Orders: Discharge Order (Routine); Ordered 07/19/23 Ordered By: Hector Pride Diet: Advance to usual diet Activity on Discharge: As tolerated Stand Alone Forms: Patient Portal Discharge page Care Plan Goals: recovery Health Concerns: bladder spams, uti Plan of Treatment: follow up with urology Assessment: see above
--- NOTE | 2023-07-19 12:34 | MHC.CM.PN ---
PATIENT IS DC HOME TODAY [facility] IS AWARE. OF THIS NOTE, IT IS UNCLEAR IF THEY WILL OFFER SERVICES SECONDARY TO PATIENT LIVING IN A TRANSITIONAL DWELLING PLACE. [facility] AWARE THAT PATIENT HAS HER OWN LIVING SPACE THAT IS NOT SHARED. PATIENT TO TAKE [facility] [place] [facility] SHUTTLE FOR 13:30 RN AND PATIENT AWARE OF PLAN.
== END 2023-07-19 13:23 | disposition home or self-care (01) | DRG 690 ==
LOC: HO.ED 22:05 → HO.EDOVER 22:14 → HO.S3 07-14 12:33
PROVIDERS: Physician Assistant Medical; Student in an Organized Health Care Education/Training Program; Admitting Provider Student in an Organized Health Care Education/Training Program; Emergency Provider Emergency Medicine Emergency Medical Services; PCP Internal Medicine; Visit Provider Internal Medicine
DX: N10 Acute pyelonephritis (principal); K90.0 Celiac disease; G40.909 Epilepsy, unspecified, not intractable, without status epilepticus; E03.9 Hypothyroidism, unspecified; J44.9 Chronic obstructive pulmonary disease, unspecified; K83.8 Other specified diseases of biliary tract; F39 Unspecified mood [affective] disorder; Z93.3 Colostomy status; R33.9 Retention of urine, unspecified; B96.20 Unspecified Escherichia coli [E. coli] as the cause of diseases classified elsewhere; I48.0 Paroxysmal atrial fibrillation; N31.9 Neuromuscular dysfunction of bladder, unspecified; Z20.822 Contact with and (suspected) exposure to COVID-19; Z85.038 Personal history of other malignant neoplasm of large intestine; Z85.028 Personal history of other malignant neoplasm of stomach; Z88.1 Allergy status to other antibiotic agents; Z79.51 Long term (current) use of inhaled steroids; Z79.890 Hormone replacement therapy; Z79.899 Other long term (current) drug therapy
CPT/HCPCS: 36410; 36415; 74178; 74181; 76700; 80048; 80053; 80170; 81001; 83605; 83735; 85025; 85027; 85652; 86140; 87040; 87086; 87088; 87186; 87635; 93005; 94640; 97116; 97161; 97530; 99285; C1751; C1758; J1170; J1200; J1580; J2270; J2405; Q9967

== ENCOUNTER → 2023-07-13 21:47 | Outpatient (BNV) | payer MEDICARE, MEDICAID, SELFPAY | PROVIDERS: Admitting Provider Student in an Organized Health Care Education/Training Program; Emergency Provider Emergency Medicine Emergency Medical Services; PCP Internal Medicine; Visit Provider Student in an Organized Health Care Education/Training Program | DX: R10.2 Pelvic and perineal pain (principal); R10.9 Unspecified abdominal pain; N10 Acute pyelonephritis | CPT/HCPCS: 99222; 99232; 99239 ==

== ENCOUNTER → 2023-07-13 21:47 | Outpatient (BNV) | payer MEDICARE, MEDICAID, SELFPAY | PROVIDERS: Admitting Provider Student in an Organized Health Care Education/Training Program; Emergency Provider Emergency Medicine Emergency Medical Services; PCP Internal Medicine; Visit Provider Internal Medicine | DX: Z88.1 Allergy status to other antibiotic agents (principal); R10.2 Pelvic and perineal pain; R10.9 Unspecified abdominal pain | CPT/HCPCS: 99222 ==

== ENCOUNTER → 2023-07-13 21:47 | Outpatient (BNV) | payer MEDICARE, MEDICAID, SELFPAY | PROVIDERS: Admitting Provider Student in an Organized Health Care Education/Training Program; Emergency Provider Emergency Medicine Emergency Medical Services; PCP Internal Medicine; Visit Provider Urology | DX: N39.0 Urinary tract infection, site not specified (principal) | CPT/HCPCS: 99222 ==

== ENCOUNTER 2023-07-26 17:50 | Inpatient (IN) | payer MEDICARE, MEDICAID, SELFPAY ==
--- NOTE | 2023-07-26 18:01 | ECG_ITS ---
Test Reason : DIZZINESS Blood Pressure : / mmHG Vent. Rate : 090 BPM Atrial Rate : 090 BPM P-R Int : 118 ms QRS Dur : 080 ms QT Int : 342 ms P-R-T Axes : 074 -04 070 degrees QTc Int : 418 ms Normal sinus rhythm Left axis deviation Otherwise normal ECG When compared with ECG of 15-MAY-2019 14:30, No significant change was found Referred By: Fish Gutiérrez Electronically Signed By:MAURA CARRION MD
--- NOTE | 2023-07-26 18:01 | ED_ITS ---
HPI - General Adult General Chief complaint: Urogenital-Female Stated complaint: urinating blood Time Seen by Provider: 07/26/23 20:22 Source: patient, RN notes reviewed and old records reviewed Mode of arrival: ambulatory Limitations: no limitations History of Present Illness HPI narrative: 67-year-old female with multiple comorbidities presents for evaluation of blood in her urine, pelvic pain and flank pain. Patient reports lower abdominal pain with blood in her urine, flank pain for the last 3 days. She states that the visiting nurse told her that she had a fever of ?102 today. ? Patient was discharged this facility 6 days ago, last Sunday for pyelonephritis. The patient has numerous anaphylactic reactions to antibiotics and therefore was admitted for IV antibiotics. She was seen by infectious disease and was receiving gentamicin On arrival to the ED, the patient is afebrile Of note, the patient has a history of neurogenic bladder and self caths daily. She also is on Eliquis Related Data Home Medications Medication Instructions Recorded Confirmed loperamide 2 mg capsule 2 mg PO NEEDED PRN Diarrhea 01/07/22 07/26/23 magnesium oxide 400 mg (241.3 mg 1 tab PO BID 01/07/22 07/26/23 magnesium) tablet potassium chloride 10 mEq 10 meq PO BID 07/14/23 07/26/23 capsule,extended release Previous Rx's Medication Instructions Recorded colostomy supplies #1 ea 04/16/23 lidocaine 4 % topical patch 1 patch topical DAILY PRN pain #30 07/05/23 (Aspercreme (lidocaine)) ea oxycodone 5 mg capsule 5 mg PO BID PRN moderate pain 07/19/23 (scale score 5-6) #7 caps Symbicort 80 mcg-4.5 mcg/actuation 2 puff inhalation BID #10.2 grams 07/20/23 HFA aerosol inhaler (budesonide-formoterol) albuterol sulfate 90 mcg/actuation 2 puff inhalation Q6H PRN 07/20/23 aerosol inhaler bronchospasm #18 grams amitriptyline 25 mg tablet 25 mg PO BEDTIME 30 days #30 tabs 07/20/23 apixaban 5 mg tablet (Eliquis) 5 mg PO BID 30 days #60 tabs 07/20/23 cholestyramine (with sugar) 4 gram 4 g PO BID 30 days #60 ea 07/20/23 powder for susp in a packet dicyclomine 20 mg tablet 20 mg PO BID #60 tabs 07/20/23 digoxin 125 mcg (0.125 mg) tablet 125 mcg PO DAILY #90 tabs 07/20/23 diphenhydramine HCl 25 mg tablet 50 mg (2 x 25 mg) PO BEDTIME #60 07/20/23 (Banophen) tabs duloxetine 60 mg capsule,delayed 60 mg PO DAILY #30 caps 07/20/23 release (Cymbalta) levetiracetam 750 mg tablet 750 mg PO BID 30 days #60 tabs 07/20/23 levothyroxine 50 mcg tablet 50 mcg PO DAILY #90 tabs 07/20/23 loratadine 10 mg tablet 10 mg PO DAILY #90 tabs 07/20/23 midodrine 5 mg tablet 5 mg PO TID #90 tabs 07/20/23 tawyilvt-qcf-emokx acid 0.4 1 tab PO DAILY #30 tabs 07/20/23 mg-lycopene 300 mcg-lutein 250 mcg tablet (CertaVite Senior) oxybutynin chloride 5 mg tablet 5 mg PO BID #60 tabs 07/20/23 pantoprazole 40 mg tablet,delayed 40 mg PO DAILY #30 tabs 07/20/23 release simvastatin 40 mg tablet 40 mg PO BEDTIME #90 tabs 07/20/23 thiamine HCl (vitamin B1) 100 mg 100 mg PO DAILY #30 tabs 07/20/23 tablet (Vitamin B-1) trazodone 50 mg tablet 50 mg PO BEDTIME #30 tabs 07/20/23 colostomy bags #5 ea 07/24/23 Allergies Allergy/AdvReac Type Severity Reaction Status Date / Time erythromycin base Allergy Severe Anaphylaxis Verified 07/13/23 10:05 [ERYTHROMYCIN BASE] levofloxacin [From Levaquin] Allergy Severe Anaphylaxis Verified 07/13/23 10:05 Penicillins [PCN] Allergy Severe Anaphylaxis Verified 07/13/23 10:05 seafood Allergy Severe Anaphylaxis Verified 07/13/23 10:05 Sulfa (Sulfonamide Allergy Severe Anaphylaxis, Verified 07/13/23 10:05 Antibiotics) vomiting [SULFA (SULFONAMIDE ANTIBIOTICS)] Tetracyclines Allergy Severe Anaphylaxis Verified 07/13/23 10:05 divalproex sodium [Depakote] Allergy Unknown altered Verified 07/13/23 10:05 mental status gluten [GLUTEN] Allergy Unknown BLOATING,RA Verified 07/13/23 10:05 SH rice Allergy Unknown Verified 07/13/23 10:05 Review of Systems 2 Constitutional: Constitutional: Reports body ache(s), Reports chills and Reports fever(s) Eyes: Eyes: Denies blurry vision Cardiovascular: Cardiovascular: Denies chest pain and Denies dyspnea Respiratory: Respiratory: Denies cough and Denies dyspnea Gastrointestinal: Gastrointestinal: Reports abdominal pain, Reports nausea and Denies vomiting Genitourinary: Genitourinary: Reports dysuria and Reports urinary hesitancy Musculoskeletal: Musculoskeletal: Denies back pain [facility] Past Medical History Medical History Primary cancer of foot Pulmonary embolism Degenerative cervical disc Lumbar disc disease Celiac disease Pure hypercholesterolemia Epilepsy Hypothyroidism COPD (chronic obstructive pulmonary disease) Pseudoseizure Conversion disorder Colon cancer Paroxysmal A-fib Allergy to multiple drugs Deep vein thrombosis Surgical History History of arthroplasty History of hysterectomy (~1979) Hx of cholecystectomy S/P IVC filter History of partial surgical removal of colon History of partial gastrectomy History of colectomy History of colostomy reversal History of bladder surgery History of sinus surgery History of facial surgery History of colonoscopy Family History Family History Mother CAD (coronary artery disease) Other Mental health disorder Social History Social History Household Members: Other Household Members Other:: 1 Housing: Apartment Do you presently have visiting nurse or other home services: Yes Alcohol intake: never Patient Tobacco Use Status: Never used Tobacco Smoked in Last 30 Days: No e-Cigarette/Vaping Use: Never Used Second Hand Smoke Exposure: Yes Use of substances other than those prescribed or required for medical reasons: No Advance Directives: Yes Advance Directives on File: Yes Advance Directives Date on File: 07/14/23 Patient : No service: No Current occupational status: disabled Cognitive needs: Yes (cane) Hearing needs: No Vision needs: Yes (Glasses) Physical Exam ED Vital Signs: Vital Signs - 24 hr 07/26/23 18:02 07/26/23 19:54 Temperature 98.1 F 98.3 F Pulse Rate 110 H 80 Respiratory Rate 16 15 Blood Pressure 126/71 121/71 Pulse Oximetry 96 97 Oxygen Delivery Method Room Air Room Air BMI result Body Mass Index 23.4 Const General: comfortable, no acute distress, alert and awake Nutritional Appearance: well nourished Orientation/consciousness: patient oriented x3 HENMT Head: Yes normocephalic and Yes atraumatic Eyes Eyelids: Yes eyelids normal Conjunctivae: conjunctivae normal Sclerae: sclerae normal Corneas: corneas normal Pupils: Equal, round and reactive pupils present EOM: EOMs intact bilaterally Neck Neck: Yes full ROM Resp Effort & Inspection: normal respiratory effort, able to speak in complete sentences and not labored Cardio Rate: regular rate Rhythm: regular rhythm GI Other: Left lower quadrant colostomy Inspection: No distended Palpation (GI): Soft to palpation, not firm, Tenderness to palpation present (GI) suprapubicly, no guarding and not rigid Auscultation: normoactive bowel sounds General: Yes CVA tenderness Back/Spine/Pelvis Back: CVA tenderness Skin General skin exam: elasticity normal Neuro General: patient oriented x3 Cranial nerves: Yes Equal, round and reactive pupils present and Yes Bilaterally intact EOM present Cognition (Neuro): normal cognition Extrem Other: Moving all extremities well without any obvious deformities Course Course Course Narrative: This is an RME: Additional HPI, ROS, PE not included below will be deferred to primary provider. 67-year-old female presents with complaints of blood in urine, not improving UTI was recently admitted for urinary tract infection, received IV antibiotics, has been feelin unwell, noted to be febrile at home by visiting nurse, patient feeling unwell, weak, lightheaded/dizzy. Plan- labs urine, blood cultures and lactic Patient repots she cant tollerate many po atbx secondary to allergies. Medications Administered Discontinued Medications Generic Name Dose Route Start Last Admin Trade Name Freq PRN Reason Stop Dose Admin Sodium Chloride 1,000 mls @ 999 mls/hr 07/26/23 20:45 07/26/23 20:55 Ns IV 07/26/23 21:45 999 mls/hr .Q1H1M MAISHA Administration Morphine Sulfate 2 mg 07/26/23 20:33 07/26/23 20:53 Morphine Sulfate 2 Mg/Ml Cartridge IVPUSH 07/26/23 20:34 2 mg ONCE ONE Administration Protocol Ondansetron HCl 4 mg 07/26/23 20:46 07/26/23 20:53 Ondansetron Hcl 4 Mg/2 Ml Vial IVPUSH 07/26/23 20:47 4 mg ONCE ONE Administration Medical Decision Making Medical Decision Making [facility] Narrative: 67-year-old female presents for evaluation of which she believes to be urinary tract infection. Her urine is red in color, 4+ bacteria. She is not septic, no leukocytosis. Symptoms likely reflect UTI versus complicated urinary tract infection. Given her recent admission for complicated urinary tract infection discussed the hospitalist will admit the patient. Differential Diagnosis Differential Diagnoses: The differential diagnosis associated with the presentation includes UTI Pyelonephritis Obstructive uropathy Sepsis Admission/Observation Consideration of admission/observation: Escalation of care including admission/observation considered Consult Healthcare Provider Management of the patient was discussed with: Hospitalist Lab Data [facility] Lab Attestation statement: I reviewed the patient's lab results. No leukocytosis. A chronic/baseline anemia. Normal platelet count. No significant electrolyte abnormality. Of note, patient's renal function is baseline 07/26/23 19:02 07/26/23 19:02 Labs: Lab Results 07/26/23 07/26/23 Range/Units 19:02 20:31 WBC 8.3 (4.8-10.8) X10*3/uL RBC 3.83 L (4.20-5.50) X10*6/uL Hgb 11.7 L (12.0-16.0) g/dl Hct 34.8 L (37.0-47.0) % MCV 90.9 (80.0-98.0) fL MCH 30.5 (27.0-33.0) pg MCHC 33.6 (31.0-35.0) g/dl RDW 12.7 (11.0-16.0) % Plt Count 292 (160-400) X10*3/uL MPV 9.1 L (9.4-12.3) fL Immature Gran % (Auto) 0.2 (0.0-0.4) % Neut % (Auto) 63.7 (45-73) % Lymph % (Auto) 26.1 (20-40) % Leslie % (Auto) 8.6 (2-11) % Eos % (Auto) 0.7 (0-4) % Baso % (Auto) 0.7 (0-2) % Lymph # (Auto) 2.2 (1.2-4.9) X10*3/uL Leslie # (Auto) 0.7 (0.1-1.2) X10*3/uL Eos # (Auto) 0.1 (0.0-0.4) X10*3/uL Baso # (Auto) 0.1 (0.0-0.2) X10*3/uL Abs Immat Gran (auto) 0.02 (0.00-0.03) X10*3/uL Absolute Neuts (auto) 5.3 (2.0-8.3) x10*3/uL Absolute Nucleated RBC 0.000 (0.0-0.012) X10*3/uL Nucleated RBC % (auto) 0.0 (0.0-0.2) /100WBC Sodium 136 (135-145) mmol/L Potassium 3.3 (3.3-5.1) mmol/L Chloride 106 (96-108) mmol/L Carbon Dioxide 23 (22-29) mmol/L Anion Gap 10 L (12-20) BUN 19 H (9-16) mg/dL Creatinine 0.67 (0.5-1.4) mg/dL Estim Creat Clear Calc 59.2 Estimated GFR > 60 Random Glucose 80 (60-115) mg/dL Lactic Acid 1.6 (0.5-2.0) mmol/L Calcium 9.4 (8.4-10.2) mg/dL Magnesium 1.8 (1.6-2.6) mg/dL Total Bilirubin 0.3 (0.0-1.0) mg/dL AST 19 (5-31) U/L ALT 16 (0-31) U/L Alkaline Phosphatase 67 (39-117) U/L Total Protein 7.0 (6.5-8.0) g/dL Albumin 4.1 (3.5-5.0) g/dL Urine Color Other A Urine Appearance Cloudy Urine pH 5.0 (5.0-9.0) Ur Specific [place] 1.020 (1.005-1.025) Urine Protein 300 (3+) H (Neg-Trace) mg/dL Urine Glucose (UA) Negative (Negative) mg/dL Urine Ketones Trace (Negative) mg/dL Urine Blood Large (3+) H (Negative) Urine Nitrite Positive H (Negative) Ur Leukocyte Esterase Trace H (Negative) Urine RBC >20 H (0-2) /HPF Urine WBC >50 H (0-5) /HPF Ur Squamous Epith Cells 11-20 (0-2) /HPF Urine Bacteria 4+ (None Seen) Hyaline Casts 3-5 (0-2) /LPF COVID-19 (JEFE) Negative (Negative) COVID-19 Clin Com See Note Tests considered The following testing was considered but not selected: CT abdomen pelvis verses renal ultrasound, however both these were imaging modalities were done within the last 2 weeks Discharge Plan Discharge Clinical Impression: Complicated urinary tract infection Patient Disposition: Admitted As Inpatient
[2023-07-26 18:02] VITALS: BP 126/71; PULSE 110; RESP 16; TEMP 36.7; O2SAT 96; BMI 23.4
--- NOTE | 2023-07-26 19:04 | MHC.EDTECH ---
Patient ekg taken in triage and was read by Provider ,Patient a difficult stick ,blood drawn including 1 set of blood culture ,lactic acid and covid swab collected and sent to lab ,Patient not able to give urine sample ,because Patient need to be straight cath ,DANIELLE Valentine aware .
[2023-07-26 19:06] LABS: MANUAL DIFF FLAG NO
[2023-07-26 19:08] LABS: Basophils Absolute Auto 0.1 X10*3/uL (0.0-0.2); Basophils Percent Auto 0.7 % (0-2); Eosinophils Absolute Auto 0.1 X10*3/uL (0.0-0.4); Eosinophils Percent Auto 0.7 % (0-4); Hematocrit 34.8 % (37.0-47.0); Hemoglobin 11.7 g/dl (12.0-16.0); Imm Gran Abs Auto 0.02 X10*3/uL (0.00-0.03); Imm Gran Pct Auto 0.2 % (0.0-0.4); Lymphocytes Absolute Auto 2.2 X10*3/uL (1.2-4.9); Lymphocytes Percent Auto 26.1 % (20-40); Mean Corpuscular HGB Conc 33.6 g/dl (31.0-35.0); Mean Corpuscular Hemoglobin 30.5 pg (27.0-33.0); Mean Corpuscular Volume 90.9 fL (80.0-98.0); Mean Platelet Volume 9.1 fL (9.4-12.3); Monocytes Absolute Auto 0.7 X10*3/uL (0.1-1.2); Monocytes Percent Auto 8.6 % (2-11); Neutrophils Absolute Auto 5.3 x10*3/uL (2.0-8.3); Neutrophils Percent Auto 63.7 % (45-73); Platelet Count 292 X10*3/uL (160-400); Red Blood Count 3.83 X10*6/uL (4.20-5.50); Red Cell Distribution Width 12.7 % (11.0-16.0); White Blood Count 8.3 X10*3/uL (4.8-10.8)
[2023-07-26 19:16] LABS: Lactic Acid 1.6 mmol/L (0.5-2.0)
[2023-07-26 19:21] LABS: Alanine Aminotransferase 16 U/L (0-31); Albumin Level 4.1 g/dL (3.5-5.0); Alkaline Phosphatase 67 U/L (39-117); Anion Gap 10 (12-20); Aspartate Amino Transferase 19 U/L (5-31); Bilirubin Total 0.3 mg/dL (0.0-1.0); Blood Urea Nitrogen 19 mg/dL (9-16); Calcium 9.4 mg/dL (8.4-10.2); Carbon Dioxide 23 mmol/L (22-29); Chloride 106 mmol/L (96-108); Creatinine Clr Calc Pharmacy 59.2; Estimated Glomerular Filt Rate > 60; Glucose Random 80 mg/dL (60-115); Magnesium 1.8 mg/dL (1.6-2.6); Potassium 3.3 mmol/L (3.3-5.1); Sodium 136 mmol/L (135-145)
[2023-07-26 19:25] LABS: COVID-19 Test Negative (Negative); IDNOW Serial# 08D9AD1C
[2023-07-26 19:54] VITALS: BP 121/71; PULSE 80; RESP 15; TEMP 36.8; O2SAT 97
--- OUTSIDE RECORDS SUMMARY | 2023-07-26 20:28 | XMS_ITS | Continuity of Care Document ---
Author Name Unknown Organization [facility] Address [address] [place] [address]- Care Team Providers Care Gelatin Powder Mixer Name Role Phone Bryson Wright MD Primary Care Physician [place] [facility] [place](s): 06/25/23 - 07/25/23 [facility] [address] [place] [id number]- Allergies, Adverse Reactions, Alerts Substance Reaction Severity [...] inactivated 2 10/03/06 Gi juanita SARS-CoV-2 mRNA ([id number]-[id number]) vax 02/25/22 Given SARS-CoV-2 mRNA ([id number]) vax 3 12/11/21 Given pneumococcal 13-valent vaccine 05/07/20 Recorded Zoster Vaccine Live 12/30/18 Recorded zoster vaccine, inactivated 06/15/18 Recorded Tet/diphth/pertussis, acel (oldterm) 03/19/12 Give n influ virus vac, H1N1, inactive(oldterm) 10/24/09 Given Pneumococcal Poly (PPV23) (oldterm) 06/14/06 Given Pneumococcal Vaccine (oldterm) 06/14/06 Given 1Admin Note: given without difficulty, tolerated well 2Result Comment: lot #[id number] exp 10/03/06 3Early/Late Reason: Early/Late Reason: Med Not Available Medications Carafate 1 gm oral tablet 1 Gm, 1, tablet, By Mouth, 3 times a day before meals and bedtime, # 56 tablet, Refills 0, Tot. Refills 0, Maintenance, 03/06/23 9:28:00 EDT, Route to Pharmacy Electronically, [facility], Partial fill upon patient request if the prescrip... Start Date: 03/06/23 Stop Date: 03/20/23 Status: Ordered dicyclomine 20 mg oral tablet 1 tablet = 20 mg, By Mouth, 2 times a day, # 60 tablet, 0 Refills, Maintenance, 11/06/21 11:49:00 EST, Tablet, [facility], Partial fill upon patient request if the prescription is for aschedule II opioid drug., 155, cm, 09/03/21 8:09:00... Start Date: 11/06/21 Status: Ordered digoxin 0.125 mg oral tablet 1, tablet, By Mouth, Daily, # 30 tablet, Refills 1, Route to Pharmacy Electronically, [id number], 156, cm, 03/01/22 4:19:00 EDT, Height, 55.2, [...] 0 Refills, Maintenance, 11/29/21 15:19:00 EST, Solution, [facility], Partial fill upon patient [...] 0 Refills, Maintenance, 03/01/22 9:50:00 EDT, Tablet, [facility] #[id number], Partial fill upon patient request [...] 11/06/21 11:44:00 EST, Route to Pharmacy Electronically, [facility], Partial fill uponpatient request if the prescription is for a schedu... Start Date: 11/06/21 Status: Ordered Symbicort 80mcg/4.5mcg Inhaler 2, puffs, Inhalation, 2 times a day, # 1 each, Refills 0, Tot. Refills 0, Maintenance, 11/06/21 11:43:00 EST, Inhaler, Route to Pharmacy Electronically, [id number], [facility], 155, cm, 09/03/21 8:09:00 EST, Hei... Start Date: 11/06/21 Status: Ordered traZODone 50 mg oral tablet 50 mg, 1, tablet, By Mouth, Daily at bedtime, # 30 tablet, Refills 0, Tot. Refills 0, Maintenance, 11/06/21 11:44:00 EST, Route to Pharmacy Electronically, [facility], Partial fill uponpatient request [...] Team Personnel Name: Sophie Crane RN Position: [facility] RN Member Role: Primary Care Nurse Name: Bryson Wright MD Position: Reference Physician Member Role: PCP Address: Address: [address] [place] [id number] Name: Honorio Boudreaux RN Position: [facility] RN Member Role: Primary Care Nurse Name: Omid Rodriguez RN Position: [facility] RN Member Role: Primary Care Nurse Name: Kat Wagner RN Position: [facility] OB RN Member Role: Primary Care Nurse Name: Mónica Montanez RN Position: [facility] SN RN Member Role: Primary Care Nurse Name: Yamilet Jack RN Position: [facility] RN Member Role: Primary Care Nurse Name: Jenni Crabtree RN Position: [facility] RN Member Role: Primary Care Nurse Name: Socorro Gilbert RN Position: [facility] SN RN Member Role: Primary Care Nurse Name: Delbert Coyne RN Position: [facility] RN Member Role: Primary Care Nurse Name: Lisa Deutsch RN Position: [facility] SN Lap Grinder Member Role: Primary Care Nurse Name: Kari Grant RN Position: [facility] RN Member Role: Primary Care Nurse Name: Rubin Alberto RN Position: [facility] RN Member Role: Primary Care Nurse Name: Sunil Crowley RN Position: [facility] RN Member Role: Primary Care Nurse Name: Long Bravo Position: [facility] RN Member Role: Primary Care Nurse Name: Georgie Kruse RN Position: [facility] RN Member Role: Primary Care Nurse Name: Renu Azar RN Position: [facility] Onco RN Member Role: Primary Care Nurse Name: Noah Mccann RN Position: [facility] RN Member Role: Primary Care Nurse Name: Jamila Neil Position: [facility] RN Member Role: Primary Care Nurse Name: Juliana Rehman RN Position: [facility] RN Member Role: Primary Care Nurse Name: Aide Lockett RN Position: [facility] RN Member Role: Primary Care Nurse Name: Balbina Lafleur RN Position: [facility] RN Member Role: Primary Care Nurse Name: Alexa Gomez RN Position: [facility] RN Member Role: Primary Care Nurse Name: Genesis Stewart NP Position: [facility] PCO Associate Professional Member Role: Primary Care Nurse Address: Address: [address] [place] [address]- Name: Maribel Dc RN Position: [facility] RN Supmathieu Member Role: Primary Care Nurse Name: Sara Guevara RN Position: [facility] RN Member Role: Primary Care Nurse Name: Georgie Shirley RN Position: [facility] RN Member Role: Primary Care Nurse Name: Saniya Raines RN Position: [facility] RN Member Role: Primary Care Nurse Name: Jenifer Conway RN Position: [facility] RN Member Role: Primary Care Nurse Name: Tori Sanchez RN Position: [facility] RN Member Role: Primary Care Nurse Name: Syl Taylor NP Position: [facility] Associate Professional Member Role: Primary Care Nurse Address: Address: [address] [place] [address] [address] [facility] [place] [address]- [place] Name: Johana Quintana RN Position: [facility] RN Member Role: Primary Care Nurse Name: Juliana Daniels RN Position: [facility] RN Member Role: Primary Care Nurse Name: Karla Ferrell RN Position: [facility] RN Member Role: Primary Care Nurse Name: Carmen Alvarado RN Position: [facility] SN RN Member Role: Primary Care Nurse Name: Leonela Huerta RN Position: [facility] RN Member Role: Primary Care Nurse Name: Ryan Moreno RN Position: [facility] RN Member Role: Primary Care Nurse Name: Nadya Perales RN Position: [facility] RN Member Role: Primary Care Nurse Name: Jenn Worley LPN Position: [facility] RN Member Role: Primary Care Nurse Name: Kaye Murrieta RN Position: [facility] RN Member Role: Primary Care Nurse Care Team Related Persons Name: RYAN FELIZ Address: [facility] Name: GAVIN FELIZ Name: MICHAEL SPRING Address: [address] [address] Name: TANGELA SPRING Address: [address] [place] [address] Name: PARISH SANTO Address: [address] [place] [address]
[2023-07-26 20:37] LABS: Appearance Urine Cloudy; Color Urine Other; Glucose Urine UA Negative (Negative); Leukocyte Esterase Urine Trace (Negative); Nitrite Urine Positive (Negative); UMIC TRIGGER UACC YES; Urine Blood Large (3+) (Negative); Urine Ketones Trace mg/dL (Negative); Urine Protein 300 (3+) mg/dL (Neg-Trace)
--- NOTE | 2023-07-26 20:50 | PC.NURSE ---
PT arrives from waiting room with complaints of hematuria. PT reports she was recently admitted for UTI and pylenonephritis. Since discharge PT continues to have pain with urination, lower back and flank pain bilaterally and blood in her urine. PT has an extensive medical and surgical history and has allergies to many PO abx. PT alert and oriented, in ano acute distress. Reports 07/03 pain, VSS, 22g IV line placed in left hand, medications administered, as per NOV. Awaiting laboratory results and admit orders
[2023-07-26] MEDS: Morphine Sulfate 2 MG/ML CARTRIDGE IVPUSH (20:53)
[2023-07-26] MEDS: ondansetron HCL 4 MG/2 ML VIAL IVPUSH (20:53)
[2023-07-26] MEDS: 0.9 % Sodium Chloride 1,000 ML 999 ML IV (20:55)
[2023-07-26 20:57] LABS: Bacteria Urine 4+ (None Seen); RBC Urine >20 /HPF (0-2); UACC Culture Trigger YES; WBC Urine >50 /HPF (0-5)
--- NOTE | 2023-07-26 21:48 | PHA.MEDREC ---
Pharmacy Consult ? Medication Reconciliation Pharmacy has completed the medication reconciliation. Patient recently discharged. Utilized discharge summary and claim history to complete med rec. [facility] HodgeD
--- NOTE | 2023-07-26 21:59 | PM.IMHP ---
History of Present Illness Date of Service: 07/26/23 Chief Complaint: hematuria, fever 67 y.o. female with history of hypothyroidism, MDD, paroxysmal atrial fibrillation,??supraventricular tachycardia, pulmonary embolism on Eliquis, history of colon cancer s/p resection with colostomy, neurogenic bladder with self-catheterization, conversion disorder, pseudoseizures, hypothyroid, mutliple drug allergies, presented with fever and hematuria. [place] [facility] [place] hospitalization for U[place]. continued to have dysuria at home. 2 days ptp reports marcy hematuria, fever of 102F, decided to come to ED today. in ED not septic, urine grossly abnormal. Review of Systems Review of Systems: Yes all other systems are reviewed and are negative [facility] Medical History Primary cancer of foot Pulmonary embolism Degenerative cervical disc Lumbar disc disease Celiac disease Pure hypercholesterolemia Epilepsy Hypothyroidism COPD (chronic obstructive pulmonary disease) Pseudoseizure Conversion disorder Colon cancer Paroxysmal A-fib Allergy to multiple drugs Deep vein thrombosis Family History Mother CAD (coronary artery disease) Other Mental health disorder Surgical History History of arthroplasty History of hysterectomy (~1979) Hx of cholecystectomy S/P IVC filter History of partial surgical removal of colon History of partial gastrectomy History of colectomy History of colostomy reversal History of bladder surgery History of sinus surgery History of facial surgery History of colonoscopy Social History Household Members: Other Household Members Other:: 1 Housing: Apartment Do you presently have visiting nurse or other home services: Yes Alcohol intake: never Patient Tobacco Use Status: Never used Tobacco Smoked in Last 30 Days: No e-Cigarette/Vaping Use: Never Used Second Hand Smoke Exposure: Yes Use of substances other than those prescribed or required for medical reasons: No Advance Directives: Yes Advance Directives on File: Yes Advance Directives Date on File: 07/14/23 Patient : No service: No Current occupational status: disabled Cognitive needs: Yes (cane) Hearing needs: No Vision needs: Yes (Glasses) Meds Allergies Allergy/AdvReac Type Severity Reaction Status Date / Time erythromycin base Allergy Severe Anaphylaxis Verified 07/13/23 10:05 [ERYTHROMYCIN BASE] levofloxacin [From Levaquin] Allergy Severe Anaphylaxis Verified 07/13/23 10:05 Penicillins [PCN] Allergy Severe Anaphylaxis Verified 07/13/23 10:05 seafood Allergy Severe Anaphylaxis Verified 07/13/23 10:05 Sulfa (Sulfonamide Allergy Severe Anaphylaxis, Verified 07/13/23 10:05 Antibiotics) vomiting [SULFA (SULFONAMIDE ANTIBIOTICS)] Tetracyclines Allergy Severe Anaphylaxis Verified 07/13/23 10:05 divalproex sodium [Depakote] Allergy Unknown altered Verified 07/13/23 10:05 mental status gluten [GLUTEN] Allergy Unknown BLOATING,RA Verified 07/13/23 10:05 SH rice Allergy Unknown Verified 07/13/23 10:05 Active Medications: Current Medications Albuterol Sulfate (Albuterol Sulfate 90 Mcg 8 Gm Inhaler) 2 puff INHALE Q6H PRN PRN Reason: bronchospasm Amitriptyline HCl (Amitriptyline Hcl 25 Mg Tablet) 25 mg PO BEDTIME [facility] Cholestyramine Resin (Cholestyramine (With Sugar) 4 Gm Powd.Pack) 4 gm PO BID [facility] Dicyclomine HCl (Dicyclomine Hcl 10 Mg Capsule) 20 mg PO BID [facility] Digoxin (Digoxin 0.125 Mg Tablet) 0.125 mg PO DAILY [facility] Diphenhydramine HCl (Diphenhydramine Hcl 25 Mg Capsule) 50 mg PO BEDTIME [facility] Duloxetine HCl (Duloxetine Hcl 60 Mg Capsule.Dr) 60 mg PO DAILY [facility] Levothyroxine Sodium (Levothyroxine Sodium 50 Mcg Tablet) 50 mcg PO DAILY [facility] Loperamide HCl (Loperamide Hcl 2 Mg Capsule) 2 mg PO NEEDED PRN PRN Reason: Diarrhea Loratadine (Loratadine 10 Mg Tablet) 10 mg PO DAILY [facility] Magnesium Oxide (Magnesium Oxide 400 Mg Tablet) 400 mg PO BID [facility] Midodrine (Midodrine Hcl 5 Mg Tablet) 5 mg PO TID [facility] Multivitamins/Vitamin C (Multivitamin Tablet) 1 tab PO DAILY [facility] Non-Formulary Medication (Budesonide-Formoterol [Symbicort]) 2 puff INHALE BID [facility] Non-Formulary Medication (Levetiracetam) 750 mg PO BID [facility] Non-Formulary Medication (Oxybutynin Chloride) 5 mg PO BID [facility] Non-Formulary Medication (Pantoprazole) 40 mg PO DAILY [facility] Non-Formulary Medication (Potassium Chloride) 10 meq PO BID [facility] Non-Formulary Medication (Simvastatin) 40 mg PO BEDTIME [facility] Oxycodone HCl (Oxycodone Hcl Immed Release 5 Mg Tablet) 5 mg PO BID PRN PRN Reason: moderate pain (scale score 5-6) Thiamine HCl (Thiamine Hcl 100 Mg Tablet) 100 mg PO DAILY [facility] Trazodone HCl (Trazodone Hcl 50 Mg Tablet) 50 mg PO BEDTIME [facility] Home Medications Medication Instructions Recorded Confirmed Last Taken Type loperamide 2 mg capsule 2 mg PO NEEDED PRN Diarrhea 01/07/22 07/26/23 01/06/22 History magnesium oxide 400 mg (241.3 mg 1 tab PO BID 01/07/22 07/26/23 01/06/22 History magnesium) tablet potassium chloride 10 mEq 10 meq PO BID 07/14/23 07/26/23 Unknown History capsule,extended release Physical Exam Vital Signs and Narrative: Vital Signs: Last Vital Signs Temp 98.3 F 07/26/23 19:54 Pulse 80 07/26/23 19:54 Resp 15 07/26/23 19:54 BP 121/71 07/26/23 19:54 Pulse Ox 97 07/26/23 19:54 O2 Del Method Room Air 07/26/23 19:54 BMI result Body Mass Index 23.4 General: AO X 3, no acute distress Resp: CTA bilateral, no accessory muscles used CVS: S1,S2,RRR GI: soft, non tender, non distended Neuro: motor grossly intact, alert Psych: appropriate affect, appropriate insight Results Labs 07/26/23 19:02 07/26/23 19:02 Labs: Laboratory Results - last 24 hr 07/26/23 07/26/23 19:02 20:31 MCV 90.9 MCH 30.5 MCHC 33.6 RDW 12.7 Plt Count 292 MPV 9.1 L Immature Gran % (Auto) 0.2 Neut % (Auto) 63.7 Lymph % (Auto) 26.1 [place] % (Auto) 8.6 Eos % (Auto) 0.7 Baso % (Auto) 0.7 Lymph # (Auto) 2.2 [place] # (Auto) 0.7 Eos # (Auto) 0.1 Baso # (Auto) 0.1 Abs Immat Gran (auto) 0.02 Absolute Neuts (auto) 5.3 Absolute Nucleated RBC 0.000 Nucleated RBC % (auto) 0.0 Anion Gap 10 L Estim Creat Clear Calc 59.2 Estimated GFR > 60 Random Glucose 80 Lactic Acid 1.6 Calcium 9.4 Magnesium 1.8 Total Bilirubin 0.3 AST 19 ALT 16 Alkaline Phosphatase 67 Total Protein 7.0 Albumin 4.1 Urine Color Other A Urine Appearance Cloudy Urine pH 5.0 Ur Specific [place] 1.020 Urine Protein 300 (3+) H Urine Glucose (UA) Negative Urine Ketones Trace Urine Blood Large (3+) H Urine Nitrite Positive H Ur Leukocyte Esterase Trace H Urine RBC >20 H Urine WBC >50 H Ur Squamous Epith Cells 11-20 Urine Bacteria 4+ Hyaline Casts 3-5 COVID-19 (JEFE) Negative COVID-19 Clin Com See Note Assessment and Plan (1) Complicated urinary tract infection: Status: Acute Plan 67 y.o. female with history of hypothyroidism, MDD, paroxysmal atrial fibrillation,??supraventricular tachycardia, pulmonary embolism on Eliquis, history of colon cancer s/p resection with colostomy, neurogenic bladder with self-catheterization, conversion disorder, pseudoseizures, hypothyroid, mutliple drug allergies, presented with fever and hematuria. complicated recurrent acute uti in patient with neurogenic bladder and multiple drug allergies complicated by hematuria received one dose iv gentamycin in eD, will defer further abx to infectious disease hold eliquis eval follow up cultures, monitor cbc paroxysmal atrial fibrillation quincyling miranda abdi dig history of pe holding eliquis seizure disorder keppra hypothyroid synthroid dvt porphlaxis - mechanical due to hematuria full code patient with uti and history of allergies requiring iv abx, therefore expected to require atleast 2 midnights inpatient Quality Stroke Does the patient have a stroke diagnosis?: No VTE Prior VTE?: Yes VTE Risk Level:: Medical - moderate - high VTE Device Contraindication: N/A - Device Ordered VTE Drug Contraindication: N/A - Med Ordered
[2023-07-26 22:00] VITALS: BP 117/68; PULSE 78; RESP 16; TEMP 36.6; O2SAT 98
[2023-07-26] MEDS: diphenhydrAMINE HCL 50 MG/ML VIAL 25 MG IVPUSH (22:40)
[2023-07-26] MEDS: oxyCODONE HCl Immed Release 5 MG TABLET PO (22:54)
--- NOTE | 2023-07-26 23:08 | PC.NURSE ---
assumed care of pt, pt resting comfortably in bed.
[2023-07-27] VITALS (7 sets, daily range): BP systolic 97–108; BP diastolic 53–65; PULSE 56–76; RESP 17–20; TEMP 36.1–36.8; O2SAT 96–99; BMI 23.4
--- NOTE | 2023-07-27 00:06 | MHC.EDTECH ---
This tech took over care at 2300,hourly rounds and vitals completed.Patient was having pain RN Pratibha was made aware. Call berkowitz within reach.
[2023-07-27] MEDS: 0.9 % Sodium Chloride Flush 3 ML SYRINGE IVFLUSH ×2 (00:07→20:53)
[2023-07-27] MEDS: HYDROmorphone HCl 0.5 MG/0.5 ML SYRINGE IVPUSH ×5 (02:52→22:09)
[2023-07-27] MEDS: oxyCODONE HCl Immed Release 5 MG TABLET PO (05:28)
[2023-07-27] MEDS: Levothyroxine Sodium 50 MCG TABLET PO (05:29)
[2023-07-27] MEDS: Omeprazole 20 MG CAPSULE.DR PO (05:29)
[2023-07-27] MEDS: Midodrine HCl 5 MG TABLET PO ×3 (05:29→17:17)
[2023-07-27 06:43] LABS: Hematocrit 30.8 % (37.0-47.0); Hemoglobin 10.2 g/dl (12.0-16.0); Mean Corpuscular HGB Conc 33.1 g/dl (31.0-35.0); Mean Corpuscular Hemoglobin 30.4 pg (27.0-33.0); Mean Corpuscular Volume 91.7 fL (80.0-98.0); Mean Platelet Volume 9.3 fL (9.4-12.3); Platelet Count 247 X10*3/uL (160-400); Red Blood Count 3.36 X10*6/uL (4.20-5.50); Red Cell Distribution Width 12.9 % (11.0-16.0); White Blood Count 4.7 X10*3/uL (4.8-10.8)
[2023-07-27 06:57] LABS: Anion Gap 8 (12-20); Blood Urea Nitrogen 14 mg/dL (9-16); Calcium 8.2 mg/dL (8.4-10.2); Carbon Dioxide 25 mmol/L (22-29); Chloride 108 mmol/L (96-108); Creatinine Clr Calc Pharmacy 72.3; Estimated Glomerular Filt Rate > 60; Glucose Fasting 81 mg/dL (60-99); Potassium 3.1 mmol/L (3.3-5.1); Sodium 138 mmol/L (135-145)
--- NOTE | 2023-07-27 08:43 | PM.UROCN ---
History of Present Illness Consult details Consult date: 07/27/23 Narrative: Christi is a 67 year old female with multiple medical conditions, h/o of colon cancer s/p colostomy many years ago, has had catheter management for neurogenic bladder for several years, states bladder was managed with tyson drainage for about 10 years and for the last few years she has been self catheterizing. Recent discharge [place] [facility] [place] for pyelonephritis/UTI, urine c/s 07/13/23 E-coli. Pt admitted due to symptoms of gross hematuria, she is prescribed Eliquis for h/o blood clots. Tyson placed on Admission - urine draining this AM is yellow, no clots. The patient has a Urologist that she is followed by. Review of Systems Review of Systems: 10 point ROS negative other than stated in HPI PMFSH Past Medical History Medical History Primary cancer of foot Pulmonary embolism Degenerative cervical disc Lumbar disc disease Celiac disease Pure hypercholesterolemia Epilepsy Hypothyroidism COPD (chronic obstructive pulmonary disease) Pseudoseizure Conversion disorder Colon cancer Paroxysmal A-fib Allergy to multiple drugs Deep vein thrombosis Family History Family History Mother CAD (coronary artery disease) Other Mental health disorder Surgical History Surgical History History of arthroplasty History of hysterectomy (~1979) Hx of cholecystectomy S/P IVC filter History of partial surgical removal of colon History of partial gastrectomy History of colectomy History of colostomy reversal History of bladder surgery History of sinus surgery History of facial surgery History of colonoscopy Social History Social History Household Members: None Household Members Other:: 1 Housing: Apartment Do you presently have visiting nurse or other home services: Yes Alcohol intake: never Patient Tobacco Use Status: Never used Tobacco e-Cigarette/Vaping Use: Never Used Second Hand Smoke Exposure: Yes Advance Directives Date on File: 07/14/23 service: No Current occupational status: disabled Cognitive needs: Yes (cane) Hearing needs: No Vision needs: Yes (Glasses) Meds Allergies Allergy/AdvReac Type Severity Reaction Status Date / Time erythromycin base Allergy Severe Anaphylaxis Verified 07/13/23 10:05 [ERYTHROMYCIN BASE] levofloxacin [From Levaquin] Allergy Severe Anaphylaxis Verified 07/13/23 10:05 Penicillins [PCN] Allergy Severe Anaphylaxis Verified 07/13/23 10:05 seafood Allergy Severe Anaphylaxis Verified 07/13/23 10:05 Sulfa (Sulfonamide Allergy Severe Anaphylaxis, Verified 07/13/23 10:05 Antibiotics) vomiting [SULFA (SULFONAMIDE ANTIBIOTICS)] Tetracyclines Allergy Severe Anaphylaxis Verified 07/13/23 10:05 divalproex sodium [Depakote] Allergy Unknown altered Verified 07/13/23 10:05 mental status gluten [GLUTEN] Allergy Unknown BLOATING,RA Verified 07/13/23 10:05 SH rice Allergy Unknown Verified 07/13/23 10:05 Active Medications: Current Medications Albuterol Sulfate (Albuterol Sulfate 90 Mcg 8 Gm Inhaler) 2 puff INHALE Q6H PRN PRN Reason: bronchospasm Amitriptyline HCl (Amitriptyline Hcl 25 Mg Tablet) 25 mg PO BEDTIME [facility] Atorvastatin Calcium (Atorvastatin Calcium 20 Mg Tablet) 20 mg PO BEDTIME [facility] Cholestyramine Resin (Cholestyramine (With Sugar) 4 Gm Powd.Pack) 4 gm PO BID [facility] Dicyclomine HCl (Dicyclomine Hcl 10 Mg Capsule) 20 mg PO BID [facility] Digoxin (Digoxin 0.125 Mg Tablet) 0.125 mg PO DAILY [facility] Diphenhydramine HCl (Diphenhydramine Hcl 25 Mg Capsule) 50 mg PO BEDTIME [facility] Duloxetine HCl (Duloxetine Hcl 60 Mg Capsule.Dr) 60 mg PO DAILY [facility] Fluticasone/Vilanterol (Fluticasone/Vilanterol 100/25 Blst.W.Dev) 1 puff INHALE RDAILY [facility] Hydromorphone HCl (Hydromorphone Hcl 0.5 Mg/0.5 Ml Syringe) 0.5 mg IVPUSH Q4H PRN; Protocol PRN Reason: moderate pain Last Admin: 07/27/23 02:52 Dose: 0.5 mg Levetiracetam (Levetiracetam 250 Mg Tablet) 750 mg PO BID [facility] Levothyroxine Sodium (Levothyroxine Sodium 50 Mcg Tablet) 50 mcg PO DAILY@0600 [facility] Last Admin: 07/27/23 05:29 Dose: 50 mcg Loperamide HCl (Loperamide Hcl 2 Mg Capsule) 2 mg PO Q4H PRN PRN Reason: Diarrhea Loratadine (Loratadine 10 Mg Tablet) 10 mg PO DAILY [facility] Magnesium Oxide (Magnesium Oxide 400 Mg Tablet) 400 mg PO BID [facility] Midodrine (Midodrine Hcl 5 Mg Tablet) 5 mg PO TID@0600,1200,1800 [facility] Last Admin: 07/27/23 05:29 Dose: 5 mg Multivitamins/Vitamin C (Multivitamin Tablet) 1 tab PO DAILY [facility] Omeprazole (Omeprazole 20 Mg Capsule.Dr) 20 mg PO DAILY@0630 [facility] Last Admin: 07/27/23 05:29 Dose: 20 mg Oxybutynin Chloride (Oxybutynin Chloride 5 Mg Tablet) 5 mg PO BID [facility] Oxycodone HCl (Oxycodone Hcl Immed Release 5 Mg Tablet) 5 mg PO BID PRN PRN Reason: moderate pain (scale score 5-6) Last Admin: 07/27/23 05:28 Dose: 5 mg Potassium Chloride (Potassium Chloride Er 10 Meq Tablet.Er) 10 meq PO BID [facility] Sodium Chloride (0.9 % Sodium Chloride Flush 3 Ml Syringe) 3 ml IVFLUSH QSHIFT [facility] Last Admin: 07/27/23 07:24 Dose: Not Given Thiamine HCl (Thiamine Hcl 100 Mg Tablet) 100 mg PO DAILY [facility] Trazodone HCl (Trazodone Hcl 50 Mg Tablet) 50 mg PO BEDTIME [facility] Home Medications Medication Instructions Recorded Confirmed Last Taken Type loperamide 2 mg capsule 2 mg PO NEEDED PRN Diarrhea 01/07/22 07/26/23 01/06/22 History magnesium oxide 400 mg (241.3 mg 1 tab PO BID 01/07/22 07/26/23 01/06/22 History magnesium) tablet potassium chloride 10 mEq 10 meq PO BID 07/14/23 07/26/23 Unknown History capsule,extended release Physical Exam Vital Signs: Vital Signs: Last Vital Signs Temp 98.2 F 07/27/23 08:00 Pulse 63 07/27/23 08:00 Resp 18 07/27/23 08:00 BP 100/56 L 07/27/23 08:00 Pulse Ox 96 07/27/23 08:00 O2 Del Method Room Air 07/27/23 08:00 BMI result Body Mass Index 23.4 Const: General: cooperative, healthy appearing and no acute distress Orientation/consciousness: patient oriented x3 HEENT: Head: Yes normal to inspection, Yes normocephalic and Yes atraumatic Eyes: Conjunctivae: conjunctivae normal Neck: Neck: Yes normal visual inspection and Yes trachea midline Chest: Chest palpation & inspection: normal inspection of the chest Resp: Effort & Inspection: normal respiratory effort Cardio: Rate: regular rate GI: Other: colostomy LLQ Inspection: Yes normal to inspection Palpation (GI): Soft to palpation Skin: General skin exam: no rashes or lesions noted Neuro: General: patient oriented x3 Extrem: General: No edema Psych: Appearance: grossly normal Results Labs 07/27/23 05:58 07/27/23 05:58 Labs: Abnormal lab results 07/26/23 07/26/23 07/27/23 Range/Units 19:02 20:31 05:58 WBC 4.7 L (4.8-10.8) X10*3/uL RBC 3.83 L 3.36 L (4.20-5.50) X10*6/uL Hgb 11.7 L 10.2 L (12.0-16.0) g/dl Hct 34.8 L 30.8 L (37.0-47.0) % MPV 9.1 L 9.3 L (9.4-12.3) fL Potassium 3.1 L (3.3-5.1) mmol/L Anion Gap 10 L 8 L (12-20) BUN 19 H (9-16) mg/dL Calcium 8.2 L D (8.4-10.2) mg/dL Urine Color Other A Urine Protein 300 (3+) H (Neg-Trace) mg/dL Urine Blood Large (3+) H (Negative) Urine Nitrite Positive H (Negative) Ur Leukocyte Esterase Trace H (Negative) Urine RBC >20 H (0-2) /HPF Urine WBC >50 H (0-5) /HPF Short CBC 07/26/23 07/27/23 Range/Units 19:02 05:58 WBC 8.3 4.7 L (4.8-10.8) X10*3/uL Hgb 11.7 L 10.2 L (12.0-16.0) g/dl Hct 34.8 L 30.8 L (37.0-47.0) % Plt Count 292 247 (160-400) X10*3/uL BMP 07/26/23 07/27/23 19:02 05:58 Sodium 136 138 Potassium 3.3 3.1 L Chloride 106 108 Carbon Dioxide 23 25 BUN 19 H 14 Creatinine 0.67 0.55 Calcium 9.4 8.2 L D Liver Function 07/26/23 Range/Units 19:02 Total Bilirubin 0.3 (0.0-1.0) mg/dL AST 19 (5-31) U/L ALT 16 (0-31) U/L Alkaline Phosphatase 67 (39-117) U/L Albumin 4.1 (3.5-5.0) g/dL Urine 07/26/23 Range/Units 20:31 Urine Color Other A Urine Appearance Cloudy Urine pH 5.0 (5.0-9.0) Ur Specific [place] 1.020 (1.005-1.025) Urine Protein 300 (3+) H (Neg-Trace) mg/dL Urine Glucose (UA) Negative (Negative) mg/dL Imaging Abdomen CT scan report/results: report reviewed and image reviewed CT scan - pelvis: report reviewed and image reviewed Additional studies: Date of Service: 07/14/23 EXAMINATION: CT ABDOMEN AND PELVIS WITHOUT AND WITH CONTRAST CLINICAL INFORMATION: Bilateral flank pain, rule out hydronephrosis, abscess, stone COMPARISON: 08/18/2022 TECHNIQUE: Multidetector volumetric imaging was performed of the abdomen and pelvis before and after the IV administration of 85 mL of Omnipaque 300 intravenous contrast. Sagittal and coronal reformatted images were obtained on the technologist's workstation. This CT examination was performed using dose optimization techniques as appropriate, variously including the following: *Automated exposure control *Adjustment of mA and/or kV according to patient size (this includes techniques or standardized protocols for targeted exams where dose is matched to indication/reason for exam; i.e. extremities or head) *Use of iterative reconstruction technique DLP: 615 mGy-cm FINDINGS: LUNG BASES: The visualized lung bases are unremarkable. LIVER, GALLBLADDER, AND BILIARY TREE: The liver is normal in size, shape, and attenuation. Redemonstrated pneumobilia. Status post cholecystectomy. Dilated common bile duct to 1.6 cm, similar to prior. Mild intrahepatic biliary ductal dilatation. PANCREAS: Pancreatic duct appears dilated to 5 mm, which appears more prominent compared to remote prior study of 05/15/2019. No focal parenchymal abnormality is seen. No surrounding inflammation. SPLEEN: Unremarkable ADRENAL GLANDS: Unremarkable KIDNEYS AND URETERS: No hydronephrosis or obstructing calculus bilaterally. Postcontrast nephrograms are symmetric. Multiple scattered tiny hypoattenuating foci are present in both kidneys, statistically favoring cysts; no follow-up recommended. BLADDER: Prominently distended without significant focal wall thickening. GASTROINTESTINAL TRACT: Postoperative changes of the bowel with left lower quadrant colostomy and multiple small bowel suture lines. No convincing evidence for bowel obstruction or significant wall thickening. No free fluid or free air is seen. ABDOMINAL WALL: Left lower quadrant colostomy. LYMPH NODES: Normal VASCULAR: IVC filter is present. PELVIC VISCERA: Patient is status post hysterectomy. OSSEOUS STRUCTURES: Degenerative disc disease at L5-S1. IMPRESSION: 1. No hydronephrosis or obstructing calculus identified. 2. Redemonstrated pneumobilia and biliary ductal dilatation, similar to 08/18/2022, which could be physiologic in the setting of prior cholecystectomy. 3. Dilated pancreatic duct to 5 mm, more prominent compared to prior. Correlation with follow-up MRI/MRCP is recommended, as a distal obstructing lesion cannot be excluded. 4. Prominently distended urinary bladder. 5. Postoperative changes of the bowel with left lower quadrant colostomy. No convincing evidence for bowel obstruction. Assessment and Plan (1) Neurogenic bladder, NOS: Status: Acute (2) Recurrent UTI: Status: Resolved (3) Gross hematuria: Status: Acute Plan Cont Tyson for now Abx per ID Pt to fu with her Urologist as outpatient Procedures Date of Service Date of Service: 07/27/23
[2023-07-27] MEDS: DULoxetine HCl 60 MG CAPSULE.DR PO (09:14)
[2023-07-27] MEDS: oxyBUTYnin chloride 5 MG TABLET PO ×2 (09:14→20:54)
[2023-07-27] MEDS: Magnesium Oxide 400 MG TABLET PO ×2 (09:14→20:54)
[2023-07-27] MEDS: levETIRAcetam 250 MG TABLET 750 MG PO ×2 (09:15→20:54)
[2023-07-27] MEDS: Digoxin 0.125 MG TABLET PO (09:15)
[2023-07-27] MEDS: Thiamine HCL 100 MG TABLET PO (09:15)
[2023-07-27] MEDS: Dicyclomine HCl 10 MG CAPSULE 20 MG PO ×2 (09:15→20:54)
[2023-07-27] MEDS: Loratadine 10 MG TABLET PO (09:15)
[2023-07-27] MEDS: Potassium Chloride ER 10 MEQ TABLET.ER PO ×2 (09:15→20:54)
[2023-07-27] MEDS: Multivitamin TABLET 1 TAB PO (09:15)
--- NOTE | 2023-07-27 09:22 | MHC.CM.PN ---
PT REPORTS SHE LIVES ALONE AND IS INDEPENDENT WITH CARE SHE SAYS SHE HAS A WALKER THAT IS TOO BULKY, SHE DOES NOT USE ONE AT [facility] PT REPORTS SHE IS ACTIVE WITH [facility] COPY OF HCP REQUESTED, SHE STATES RYAN FELIZ IS HER AGENT PCP: JOSE G [facility] DELIVERED DCP: HOME, RESUME [facility] PT REPORTS SHE WALKS HOME IT IS EXTREMELY CLOSE
--- NOTE | 2023-07-27 11:22 | HO.PM.IMPN ---
Subjective Subjective Date of Service: 07/27/23 Interval History: Still complaining of bladder and flank pain. Medicine minimally effective Review of Systems Denies chest pain Denies shortness of breath Denies nausea vomiting diarrhea Denies fever chills Physical Exam Vital Signs: Vital Signs: Last Vital Signs Temp 97.0 F 07/27/23 10:35 Pulse 62 07/27/23 10:35 Resp 18 07/27/23 10:35 BP 106/59 L 07/27/23 10:35 Pulse Ox 97 07/27/23 10:35 O2 Del Method Room Air 07/27/23 10:35 BMI result Body Mass Index 23.4 Const: Other: No acute distress lying quietly in bed Resp: Other: Clear to auscultation bilaterally no rales rhonchi or wheezes Cardio: Other: No S4; positive S1-S2; no S3 murmurs rubs or gallops GI: Other: Soft nontender nondistended normoactive bowel sounds Extrem: Other: No edema bilaterally Objective Data Active Medications Albuterol Sulfate (Albuterol Sulfate 90 Mcg 8 Gm Inhaler) 2 puff INHALE Q6H PRN PRN Reason: bronchospasm Amitriptyline HCl (Amitriptyline Hcl 25 Mg Tablet) 25 mg PO BEDTIME [facility] Atorvastatin Calcium (Atorvastatin Calcium 20 Mg Tablet) 20 mg PO BEDTIME [facility] Cholestyramine Resin (Cholestyramine (With Sugar) 4 Gm Powd.Pack) 4 gm PO BID [facility] Last Admin: 07/27/23 09:14 Dose: Not Given Documented By: AIYANA Non-Admin Reason: Patient Refused Dicyclomine HCl (Dicyclomine Hcl 10 Mg Capsule) 20 mg PO BID [facility] Last Admin: 07/27/23 09:15 Dose: 20 mg Documented By: AIYANA Digoxin (Digoxin 0.125 Mg Tablet) 0.125 mg PO DAILY [facility] Last Admin: 07/27/23 09:15 Dose: 0.125 mg Documented By: AIYANA Diphenhydramine HCl (Diphenhydramine Hcl 25 Mg Capsule) 50 mg PO BEDTIME [facility] Duloxetine HCl (Duloxetine Hcl 60 Mg Capsule.Dr) 60 mg PO DAILY [facility] Last Admin: 07/27/23 09:14 Dose: 60 mg Documented By: AIYANA Fluticasone/Vilanterol (Fluticasone/Vilanterol 100/25 Blst.W.Dev) 1 puff INHALE RDAILY [facility] Last Admin: 07/27/23 09:10 Dose: Not Given Documented By: TYRONE Non-Admin Reason: pharmacy called Hydromorphone HCl (Hydromorphone Hcl 0.5 Mg/0.5 Ml Syringe) 0.5 mg IVPUSH Q4H PRN; Protocol PRN Reason: moderate pain Last Admin: 07/27/23 09:15 Dose: 0.5 mg Documented By: AIYANA Levetiracetam (Levetiracetam 250 Mg Tablet) 750 mg PO BID [facility] Last Admin: 07/27/23 09:15 Dose: 750 mg Documented By: AIYANA Levothyroxine Sodium (Levothyroxine Sodium 50 Mcg Tablet) 50 mcg PO DAILY@0600 [facility] Last Admin: 07/27/23 05:29 Dose: 50 mcg Documented By: DENNYS Loperamide HCl (Loperamide Hcl 2 Mg Capsule) 2 mg PO Q4H PRN PRN Reason: Diarrhea Loratadine (Loratadine 10 Mg Tablet) 10 mg PO DAILY [facility] Last Admin: 07/27/23 09:15 Dose: 10 mg Documented By: AIYANA Magnesium Oxide (Magnesium Oxide 400 Mg Tablet) 400 mg PO BID [facility] Last Admin: 07/27/23 09:14 Dose: 400 mg Documented By: AIYANA Midodrine (Midodrine Hcl 5 Mg Tablet) 5 mg PO TID@0600,1200,1800 [facility] Last Admin: 07/27/23 05:29 Dose: 5 mg Documented By: DENNYS Multivitamins/Vitamin C (Multivitamin Tablet) 1 tab PO DAILY [facility] Last Admin: 07/27/23 09:15 Dose: 1 tab Documented By: AIYANA Omeprazole (Omeprazole 20 Mg Capsule.Dr) 20 mg PO DAILY@0630 [facility] Last Admin: 07/27/23 05:29 Dose: 20 mg Documented By: DENNYS Oxybutynin Chloride (Oxybutynin Chloride 5 Mg Tablet) 5 mg PO BID [facility] Last Admin: 07/27/23 09:14 Dose: 5 mg Documented By: AIYANA Oxycodone HCl (Oxycodone Hcl Immed Release 5 Mg Tablet) 5 mg PO BID PRN PRN Reason: moderate pain (scale score 5-6) Last Admin: 07/27/23 05:28 Dose: 5 mg Documented By: DENNYS Potassium Chloride (Potassium Chloride Er 10 Meq Tablet.Er) 10 meq PO BID [facility] Last Admin: 07/27/23 09:15 Dose: 10 meq Documented By: AIYANA Sodium Chloride (0.9 % Sodium Chloride Flush 3 Ml Syringe) 3 ml IVFLUSH QSHIFT [facility] Last Admin: 07/27/23 07:24 Dose: Not Given Documented By: AIYANA Non-Admin Reason: See Note Thiamine HCl (Thiamine Hcl 100 Mg Tablet) 100 mg PO DAILY [facility] Last Admin: 07/27/23 09:15 Dose: 100 mg Documented By: AIYANA Trazodone HCl (Trazodone Hcl 50 Mg Tablet) 50 mg PO BEDTIME [facility] Labs 07/27/23 05:58 07/27/23 05:58 Labs: Laboratory Results - last 24 hr 07/26/23 07/26/23 07/27/23 19:02 20:31 05:58 MCV 90.9 91.7 MCH 30.5 30.4 MCHC 33.6 33.1 RDW 12.7 12.9 Plt Count 292 247 MPV 9.1 L 9.3 L Immature Gran % (Auto) 0.2 Neut % (Auto) 63.7 Lymph % (Auto) 26.1 [place] % (Auto) 8.6 Eos % (Auto) 0.7 Baso % (Auto) 0.7 Lymph # (Auto) 2.2 [place] # (Auto) 0.7 Eos # (Auto) 0.1 Baso # (Auto) 0.1 Abs Immat Gran (auto) 0.02 Absolute Neuts (auto) 5.3 Absolute Nucleated RBC 0.000 0.000 Nucleated RBC % (auto) 0.0 0.0 Anion Gap 10 L 8 L Estim Creat Clear Calc 59.2 72.3 Estimated GFR > 60 > 60 Random Glucose 80 Fasting Glucose 81 Lactic Acid 1.6 Calcium 9.4 8.2 L D Magnesium 1.8 Total Bilirubin 0.3 AST 19 ALT 16 Alkaline Phosphatase 67 Total Protein 7.0 Albumin 4.1 Urine Color Other A Urine Appearance Cloudy Urine pH 5.0 Ur Specific [place] 1.020 Urine Protein 300 (3+) H Urine Glucose (UA) Negative Urine Ketones Trace Urine Blood Large (3+) H Urine Nitrite Positive H Ur Leukocyte Esterase Trace H Urine RBC >20 H Urine WBC >50 H Ur Squamous Epith Cells 11-20 Urine Bacteria 4+ Hyaline Casts 3-5 COVID-19 (JEFE) Negative COVID-19 Clin Com See Note Assessment and Plan (1) Complicated urinary tract infection: Status: Acute (2) Paroxysmal A-fib: Status: Acute (3) History of pulmonary embolus (PE): Status: Acute Plan 67 y.o. female with history of hypothyroidism, MDD, paroxysmal atrial fibrillation,??supraventricular tachycardia, pulmonary embolism on Eliquis, history of colon cancer s/p resection with colostomy, neurogenic bladder with self-catheterization, conversion disorder, pseudoseizures, hypothyroid, mutliple drug allergies, presented with fever and hematuria. 1.Complicated/recurrent acute uti -received one dose iv gentamycin in eD, -id consult pending -hold eliquis -await urine and blood cultures 2.Paroxysmal atrial fibrillation (normal sinus rhythm present) -restart Eliquis when clinically appropriate -continue outpatient therapies 3.History of pe -as above. Restart Eliquis when clinically appropriate 4.Seizure disorder (none since admission) -keppra as ordered mechanical due to hematuria full code Requires ongoing inpatient stay secondary to need for IV antibiotics to treat UTI pending cultures Quality Stroke Does the patient have a stroke diagnosis?: No VTE Prior VTE?: Yes VTE Risk Level:: Medical - moderate - high VTE Device Contraindication: N/A - Device Ordered VTE Drug Contraindication: N/A - Med Ordered
[2023-07-27] MEDS: oxyCODONE HCl Immed Release 5 MG TABLET 10 MG PO (11:50)
[2023-07-27] MEDS: ondansetron HCL 4 MG/2 ML VIAL IVPUSH (12:38)
--- NOTE | 2023-07-27 15:52 | P.CNID_ITS ---
History of Present Illness Data of Consult Service Date: 07/27/23 Requesting physician: Matthew Jones Primary Care Provider: Bryson Wright MD HPI Reason for consult: possible urinary sepsis She presents with hematuria,pelvic and left flank pain on 07/26 to ER. She had ESBL E coli on 07/13 and received 14 days she says of Gentamicin and a dose of 3 g fosfomycin per patient report, She says she felt better and then worse and thought she was used to Gentamicin She has multiple drug allergies or intolerances claimed and has seen [employer] she is not sure who and was told to avoid medication she is allergic to. Blood and urine cultures are pending. Review of Systems 2 Review of Systems: Yes all other systems are reviewed and are negative PMFSH Past Medical History Medical History Primary cancer of foot Pulmonary embolism Degenerative cervical disc Lumbar disc disease Celiac disease Pure hypercholesterolemia Epilepsy Hypothyroidism COPD (chronic obstructive pulmonary disease) Pseudoseizure Conversion disorder Colon cancer Paroxysmal A-fib Allergy to multiple drugs Deep vein thrombosis Family History Family History Mother CAD (coronary artery disease) Other Mental health disorder Family history: reviewed and not pertinent Surgical History Surgical History History of arthroplasty History of hysterectomy (~1979) Hx of cholecystectomy S/P IVC filter History of partial surgical removal of colon History of partial gastrectomy History of colectomy History of colostomy reversal History of bladder surgery History of sinus surgery History of facial surgery History of colonoscopy Social History Social History Household Members: None Household Members Other:: 1 Housing: Apartment Do you presently have visiting nurse or other home services: Yes Alcohol intake: never Patient Tobacco Use Status: Never used Tobacco e-Cigarette/Vaping Use: Never Used Second Hand Smoke Exposure: Yes Advance Directives Date on File: 07/14/23 service: No Current occupational status: disabled Cognitive needs: Yes (cane) Hearing needs: No Vision needs: Yes (Glasses) Meds Allergies Allergy/AdvReac Type Severity Reaction Status Date / Time erythromycin base Allergy Severe Anaphylaxis Verified 07/13/23 10:05 [ERYTHROMYCIN BASE] levofloxacin [From Levaquin] Allergy Severe Anaphylaxis Verified 07/13/23 10:05 Penicillins [PCN] Allergy Severe Anaphylaxis Verified 07/13/23 10:05 seafood Allergy Severe Anaphylaxis Verified 07/13/23 10:05 Sulfa (Sulfonamide Allergy Severe Anaphylaxis, Verified 07/13/23 10:05 Antibiotics) vomiting [SULFA (SULFONAMIDE ANTIBIOTICS)] Tetracyclines Allergy Severe Anaphylaxis Verified 07/13/23 10:05 divalproex sodium [Depakote] Allergy Unknown altered Verified 07/13/23 10:05 mental status gluten [GLUTEN] Allergy Unknown BLOATING,RA Verified 07/13/23 10:05 SH rice Allergy Unknown Verified 07/13/23 10:05 Active Medications: Current Medications Albuterol Sulfate (Albuterol Sulfate 90 Mcg 8 Gm Inhaler) 2 puff INHALE Q6H PRN PRN Reason: bronchospasm Amitriptyline HCl (Amitriptyline Hcl 25 Mg Tablet) 25 mg PO BEDTIME [facility] Atorvastatin Calcium (Atorvastatin Calcium 20 Mg Tablet) 20 mg PO BEDTIME [facility] Cholestyramine Resin (Cholestyramine (With Sugar) 4 Gm Powd.Pack) 4 gm PO BID [facility] Last Admin: 07/27/23 09:14 Dose: Not Given Dicyclomine HCl (Dicyclomine Hcl 10 Mg Capsule) 20 mg PO BID [facility] Last Admin: 07/27/23 09:15 Dose: 20 mg Digoxin (Digoxin 0.125 Mg Tablet) 0.125 mg PO DAILY [facility] Last Admin: 07/27/23 09:15 Dose: 0.125 mg Diphenhydramine HCl (Diphenhydramine Hcl 25 Mg Capsule) 50 mg PO BEDTIME [facility] Duloxetine HCl (Duloxetine Hcl 60 Mg Capsule.Dr) 60 mg PO DAILY [facility] Last Admin: 07/27/23 09:14 Dose: 60 mg Fluticasone/Vilanterol (Fluticasone/Vilanterol 100/25 Blst.W.Dev) 1 puff INHALE RDAILY [facility] Last Admin: 07/27/23 09:10 Dose: Not Given Hydromorphone HCl (Hydromorphone Hcl 0.5 Mg/0.5 Ml Syringe) 0.5 mg IVPUSH Q4H PRN; Protocol PRN Reason: moderate pain Last Admin: 07/27/23 13:15 Dose: 0.5 mg Gentamicin Sulfate/Sodium Chloride (Garamycin) 80 mg in 100 mls @ 100 mls/hr IV ONCE ONE Stop: 07/27/23 16:29 Levetiracetam (Levetiracetam 250 Mg Tablet) 750 mg PO BID [facility] Last Admin: 07/27/23 09:15 Dose: 750 mg Levothyroxine Sodium (Levothyroxine Sodium 50 Mcg Tablet) 50 mcg PO DAILY@0600 [facility] Last Admin: 07/27/23 05:29 Dose: 50 mcg Loperamide HCl (Loperamide Hcl 2 Mg Capsule) 2 mg PO Q4H PRN PRN Reason: Diarrhea Loratadine (Loratadine 10 Mg Tablet) 10 mg PO DAILY [facility] Last Admin: 07/27/23 09:15 Dose: 10 mg Magnesium Oxide (Magnesium Oxide 400 Mg Tablet) 400 mg PO BID [facility] Last Admin: 07/27/23 09:14 Dose: 400 mg Midodrine (Midodrine Hcl 5 Mg Tablet) 5 mg PO TID@0600,1200,1800 [facility] Last Admin: 07/27/23 11:50 Dose: 5 mg Multivitamins/Vitamin C (Multivitamin Tablet) 1 tab PO DAILY [facility] Last Admin: 07/27/23 09:15 Dose: 1 tab Omeprazole (Omeprazole 20 Mg Capsule.Dr) 20 mg PO DAILY@0630 [facility] Last Admin: 07/27/23 05:29 Dose: 20 mg Ondansetron HCl (Ondansetron Hcl 4 Mg/2 Ml Vial) 4 mg IVPUSH Q4H PRN PRN Reason: Nausea and Vomiting Last Admin: 07/27/23 12:38 Dose: 4 mg Oxybutynin Chloride (Oxybutynin Chloride 5 Mg Tablet) 5 mg PO BID [facility] Last Admin: 07/27/23 09:14 Dose: 5 mg Oxycodone HCl (Oxycodone Hcl Immed Release 5 Mg Tablet) 10 mg PO Q4H PRN PRN Reason: Pain, Moderate(Pain Scale 4-6) Last Admin: 07/27/23 11:50 Dose: 10 mg Potassium Chloride (Potassium Chloride Er 10 Meq Tablet.Er) 10 meq PO BID [facility] Last Admin: 07/27/23 09:15 Dose: 10 meq Sodium Chloride (0.9 % Sodium Chloride Flush 3 Ml Syringe) 3 ml IVFLUSH QSHIFT [facility] Last Admin: 07/27/23 07:24 Dose: Not Given Thiamine HCl (Thiamine Hcl 100 Mg Tablet) 100 mg PO DAILY [facility] Last Admin: 07/27/23 09:15 Dose: 100 mg Trazodone HCl (Trazodone Hcl 50 Mg Tablet) 50 mg PO BEDTIME [facility] Home Medications Medication Instructions Recorded Confirmed Last Taken Type loperamide 2 mg capsule 2 mg PO NEEDED PRN Diarrhea 01/07/22 07/26/23 01/06/22 History magnesium oxide 400 mg (241.3 mg 1 tab PO BID 01/07/22 07/26/23 01/06/22 History magnesium) tablet potassium chloride 10 mEq 10 meq PO BID 07/14/23 07/26/23 Unknown History capsule,extended release Physical Exam 2 Vital Signs: Vital Signs: Last Vital Signs Temp 96.9 F 07/27/23 15:05 Pulse 61 07/27/23 15:05 Resp 18 07/27/23 15:05 BP 99/59 L 07/27/23 15:05 Pulse Ox 96 07/27/23 15:05 O2 Del Method Room Air 07/27/23 15:05 BMI result Body Mass Index 23.4 Const: General: cooperative HEENT: Head: Yes normal to inspection Face and sinus: Yes normal facial exam Mouth: Normal oral and palatal mucosa present Teeth and gingiva: d entition normal Eyes: General: appearance normal, both eyes and all related structures P upils: Equal, round and reactive pupils present Resp: Effort & Inspection: normal respiratory effort Cardio: Rate: regular rate Rhythm: regular rhythm GI: Palpation (GI): Soft to palpation and nontender : General: Yes no CVA tenderness Back/Spine/Pelvis: Back: no CVA tenderness Skin: General skin exam: no rashes or lesions noted Neuro: General: moves all extremities Cranial nerves: Yes Equal, round and reactive pupils present Extrem: General: Yes normal to inspection Psych: Appearance: grossly normal Results Labs 07/27/23 05:58 07/27/23 05:58 Labs: Short CBC 07/26/23 07/27/23 Range/Units 19:02 05:58 WBC 8.3 4.7 L (4.8-10.8) X10*3/uL Hgb 11.7 L 10.2 L (12.0-16.0) g/dl Hct 34.8 L 30.8 L (37.0-47.0) % Plt Count 292 247 (160-400) X10*3/uL BMP 07/26/23 07/27/23 19:02 05:58 Sodium 136 138 Potassium 3.3 3.1 L Chloride 106 108 Carbon Dioxide 23 25 BUN 19 H 14 Creatinine 0.67 0.55 Calcium 9.4 8.2 L D Liver Function 07/26/23 Range/Units 19:02 Total Bilirubin 0.3 (0.0-1.0) mg/dL AST 19 (5-31) U/L ALT 16 (0-31) U/L Alkaline Phosphatase 67 (39-117) U/L Albumin 4.1 (3.5-5.0) g/dL Urine 07/26/23 Range/Units 20:31 Urine Color Other A Urine Appearance Cloudy Urine pH 5.0 (5.0-9.0) Ur Specific [place] 1.020 (1.005-1.025) Urine Protein 300 (3+) H (Neg-Trace) mg/dL Urine Glucose (UA) Negative (Negative) mg/dL Microbiology Microbiology Results: Microbiology 07/26/23 20:57 Urine clean catch - Urine ramirez top Urine Culture - Preliminary Culture in progress. Assessment and Plan (1) Gross hematuria: Status: Acute (2) Complicated urinary tract infection: Status: Acute She has acute infection with hematuria and fever. She feels better now and received one dose Gentamicin. (3) Allergy to multiple antibiotics: Status: Acute (4) Acute suprapubic pain: Status: Acute Plan Gentamicin 3 mg/kg/dayor renal dose adjust per pharmacy if sensitive for 14 days and may start now. Await urine and blood cultures. Urology outpatient.
[2023-07-27] MEDS: diphenhydrAMINE HCL 50 MG/ML VIAL 25 MG IVPUSH (16:11)
[2023-07-27] MEDS: Gentamicin Sulfate/NaCl 80 MG/100 ML PIGGYBACK 100 MG IV (16:13)
--- NOTE | 2023-07-27 17:49 | PC.NURSE ---
patient reported bladder discomfort and the feeling of needing to urinate but tyson cath has not been draining, pt was bladder scanned for apporx. 650mls and Dr. Jones made aware, tyson was irrigated and output measured to be 800mls
[2023-07-27] MEDS: traZODone HCL 50 MG TABLET PO (20:53)
[2023-07-27] MEDS: Amitriptyline HCl 25 MG TABLET PO (20:54)
[2023-07-27] MEDS: diphenhydrAMINE HCL 25 MG CAPSULE 50 MG PO (20:54)
[2023-07-27] MEDS: Atorvastatin Calcium 20 MG TABLET PO (20:54)
[2023-07-28] VITALS (7 sets, daily range): BP systolic 90–100; BP diastolic 52–67; PULSE 65–72; RESP 14–19; TEMP 36.2–36.6; O2SAT 94–97
[2023-07-28] MEDS: HYDROmorphone HCl 0.5 MG/0.5 ML SYRINGE IVPUSH ×5 (02:48→20:35)
[2023-07-28] MEDS: Levothyroxine Sodium 50 MCG TABLET PO (05:44)
[2023-07-28] MEDS: Omeprazole 20 MG CAPSULE.DR PO (05:44)
[2023-07-28] MEDS: Midodrine HCl 5 MG TABLET PO ×3 (05:44→16:36)
[2023-07-28 06:40] LABS: MANUAL DIFF FLAG NO
[2023-07-28 06:43] LABS: Basophils Percent Auto 0.9 % (0-2); Eosinophils Absolute Auto 0.1 X10*3/uL (0.0-0.4); Eosinophils Percent Auto 3.6 % (0-4); Hematocrit 31.3 % (37.0-47.0); Hemoglobin 10.5 g/dl (12.0-16.0); Imm Gran Abs Auto 0.01 X10*3/uL (0.00-0.03); Imm Gran Pct Auto 0.3 % (0.0-0.4); Lymphocytes Absolute Auto 1.3 X10*3/uL (1.2-4.9); Lymphocytes Percent Auto 38.6 % (20-40); Mean Corpuscular HGB Conc 33.5 g/dl (31.0-35.0); Mean Corpuscular Hemoglobin 30.7 pg (27.0-33.0); Mean Corpuscular Volume 91.5 fL (80.0-98.0); Mean Platelet Volume 9.2 fL (9.4-12.3); Monocytes Absolute Auto 0.3 X10*3/uL (0.1-1.2); Monocytes Percent Auto 9.7 % (2-11); Neutrophils Absolute Auto 1.5 x10*3/uL (2.0-8.3); Neutrophils Percent Auto 46.9 % (45-73); Platelet Count 241 X10*3/uL (160-400); Red Blood Count 3.42 X10*6/uL (4.20-5.50); Red Cell Distribution Width 13.1 % (11.0-16.0); White Blood Count 3.3 X10*3/uL (4.8-10.8)
[2023-07-28 07:15] LABS: Alanine Aminotransferase 11 U/L (0-31); Albumin Level 3.1 g/dL (3.5-5.0); Alkaline Phosphatase 56 U/L (39-117); Anion Gap 8 (12-20); Aspartate Amino Transferase 16 U/L (5-31); Bilirubin Total 0.3 mg/dL (0.0-1.0); Blood Urea Nitrogen 13 mg/dL (9-16); Calcium 8.3 mg/dL (8.4-10.2); Carbon Dioxide 26 mmol/L (22-29); Chloride 108 mmol/L (96-108); Creatinine Clr Calc Pharmacy 65.1; Estimated Glomerular Filt Rate > 60; Glucose Fasting 87 mg/dL (60-99); Sodium 138 mmol/L (135-145); Total Protein 5.4 g/dL (6.5-8.0)
[2023-07-28] MEDS: 0.9 % Sodium Chloride Flush 3 ML SYRINGE IVFLUSH ×3 (08:27→20:35)
[2023-07-28] MEDS: Loratadine 10 MG TABLET PO (08:28)
[2023-07-28] MEDS: Magnesium Oxide 400 MG TABLET PO ×2 (08:28→20:36)
[2023-07-28] MEDS: DULoxetine HCl 60 MG CAPSULE.DR PO (08:28)
[2023-07-28] MEDS: Thiamine HCL 100 MG TABLET PO (08:28)
[2023-07-28] MEDS: Multivitamin TABLET 1 TAB PO (08:28)
[2023-07-28] MEDS: Potassium Chloride ER 10 MEQ TABLET.ER PO ×2 (08:28→20:35)
[2023-07-28] MEDS: Digoxin 0.125 MG TABLET PO (08:28)
[2023-07-28] MEDS: ondansetron HCL 4 MG/2 ML VIAL IVPUSH ×4 (08:28→20:35)
[2023-07-28] MEDS: levETIRAcetam 250 MG TABLET 750 MG PO ×2 (08:28→20:35)
[2023-07-28] MEDS: oxyBUTYnin chloride 5 MG TABLET PO ×2 (08:28→20:36)
[2023-07-28] MEDS: Dicyclomine HCl 10 MG CAPSULE 20 MG PO ×2 (08:28→20:36)
--- NOTE | 2023-07-28 13:22 | HO.PM.IMPN ---
Subjective Subjective Date of Service: 07/28/23 Interval History: Still complains of vague lower abdominal pain in the absence of fever and chills. Mild nausea relieved with Zofran Review of Systems Denies chest pain Denies shortness of breath Denies nausea vomiting diarrhea Denies fever chills Physical Exam Vital Signs: Vital Signs: Last Vital Signs Temp 97.7 F 07/28/23 07:28 Pulse 65 07/28/23 07:28 Resp 19 07/28/23 12:32 BP 96/54 L 07/28/23 07:28 Pulse Ox 96 07/28/23 07:28 O2 Del Method Room Air 07/28/23 07:28 BMI result Body Mass Index 23.4 Const: Other: No acute distress lying quietly in bed Resp: Other: Clear to auscultation bilaterally no rales rhonchi or wheezes Cardio: Other: No S4; positive S1-S2; no S3 murmurs rubs or gallops GI: Other: Soft nontender nondistended normoactive bowel sounds Extrem: Other: No edema bilaterally Objective Data Active Medications Albuterol Sulfate (Albuterol Sulfate 90 Mcg 8 Gm Inhaler) 2 puff INHALE Q6H PRN PRN Reason: bronchospasm Amitriptyline HCl (Amitriptyline Hcl 25 Mg Tablet) 25 mg PO BEDTIME [facility] Last Admin: 07/27/23 20:54 Dose: 25 mg Documented By: MIRTA Atorvastatin Calcium (Atorvastatin Calcium 20 Mg Tablet) 20 mg PO BEDTIME [facility] Last Admin: 07/27/23 20:54 Dose: 20 mg Documented By: MIRTA Cholestyramine Resin (Cholestyramine (With Sugar) 4 Gm Powd.Pack) 4 gm PO BID [facility] Last Admin: 07/28/23 08:29 Dose: Not Given Documented By: COTEMA Non-Admin Reason: Patient Refused Dicyclomine HCl (Dicyclomine Hcl 10 Mg Capsule) 20 mg PO BID [facility] Last Admin: 07/28/23 08:28 Dose: 20 mg Documented By: COTJUSTUS Digoxin (Digoxin 0.125 Mg Tablet) 0.125 mg PO DAILY [facility] Last Admin: 07/28/23 08:28 Dose: 0.125 mg Documented By: COTEMA Diphenhydramine HCl (Diphenhydramine Hcl 25 Mg Capsule) 50 mg PO BEDTIME [facility] Last Admin: 07/27/23 20:54 Dose: 50 mg Documented By: CASTILM Duloxetine HCl (Duloxetine Hcl 60 Mg Capsule.) 60 mg PO DAILY [facility] Last Admin: 07/28/23 08:28 Dose: 60 mg Documented By: COTEMA Fluticasone/Vilanterol (Fluticasone/Vilanterol 100/25 Blst.W.Dev) 1 puff INHALE RDAILY [facility] Last Admin: 07/28/23 07:50 Dose: Not Given Documented By: NAOMY Non-Admin Reason: Med Not Available Hydromorphone HCl (Hydromorphone Hcl 0.5 Mg/0.5 Ml Syringe) 0.5 mg IVPUSH Q4H PRN; Protocol PRN Reason: moderate pain Last Admin: 07/28/23 12:32 Dose: 0.5 mg Documented By: COTEMA Levetiracetam (Levetiracetam 250 Mg Tablet) 750 mg PO BID [facility] Last Admin: 07/28/23 08:28 Dose: 750 mg Documented By: COTEMA Levothyroxine Sodium (Levothyroxine Sodium 50 Mcg Tablet) 50 mcg PO DAILY@0600 [facility] Last Admin: 07/28/23 05:44 Dose: 50 mcg Documented By: MIRTA Loperamide HCl (Loperamide Hcl 2 Mg Capsule) 2 mg PO Q4H PRN PRN Reason: Diarrhea Loratadine (Loratadine 10 Mg Tablet) 10 mg PO DAILY [facility] Last Admin: 07/28/23 08:28 Dose: 10 mg Documented By: COTEMA Magnesium Oxide (Magnesium Oxide 400 Mg Tablet) 400 mg PO BID [facility] Last Admin: 07/28/23 08:28 Dose: 400 mg Documented By: COTEMA Midodrine (Midodrine Hcl 5 Mg Tablet) 5 mg PO TID@0600,1200,1800 [facility] Last Admin: 07/28/23 12:32 Dose: 5 mg Documented By: COTEMA Multivitamins/Vitamin C (Multivitamin Tablet) 1 tab PO DAILY [facility] Last Admin: 07/28/23 08:28 Dose: 1 tab Documented By: COTEMA Omeprazole (Omeprazole 20 Mg Capsule.) 20 mg PO DAILY@0630 [facility] Last Admin: 07/28/23 05:44 Dose: 20 mg Documented By: MIRTA Ondansetron HCl (Ondansetron Hcl 4 Mg/2 Ml Vial) 4 mg IVPUSH Q4H PRN PRN Reason: Nausea and Vomiting Last Admin: 07/28/23 12:33 Dose: 4 mg Documented By: COTEMA Oxybutynin Chloride (Oxybutynin Chloride 5 Mg Tablet) 5 mg PO BID [facility] Last Admin: 07/28/23 08:28 Dose: 5 mg Documented By: COTEMA Oxycodone HCl (Oxycodone Hcl Immed Release 5 Mg Tablet) 10 mg PO Q4H PRN PRN Reason: Pain, Moderate(Pain Scale 4-6) Last Admin: 07/27/23 11:50 Dose: 10 mg Documented By: JULIO Potassium Chloride (Potassium Chloride Er 10 Meq Tablet.Er) 10 meq PO BID [facility] Last Admin: 07/28/23 08:28 Dose: 10 meq Documented By: MARCIOEMA Sodium Chloride (0.9 % Sodium Chloride Flush 3 Ml Syringe) 3 ml IVFLUSH QSHIFT [facility] Last Admin: 07/28/23 08:27 Dose: 3 ml Documented By: COTEMA Thiamine HCl (Thiamine Hcl 100 Mg Tablet) 100 mg PO DAILY [facility] Last Admin: 07/28/23 08:28 Dose: 100 mg Documented By: COTEMA Trazodone HCl (Trazodone Hcl 50 Mg Tablet) 50 mg PO BEDTIME [facility] Last Admin: 07/27/23 20:53 Dose: 50 mg Documented By: MIRTA Labs 07/28/23 06:35 07/28/23 06:35 Labs: Laboratory Results - last 24 hr 07/28/23 06:35 MCV 91.5 MCH 30.7 MCHC 33.5 RDW 13.1 Plt Count 241 MPV 9.2 L Immature Gran % (Auto) 0.3 Neut % (Auto) 46.9 Lymph % (Auto) 38.6 [place] % (Auto) 9.7 Eos % (Auto) 3.6 Baso % (Auto) 0.9 Lymph # (Auto) 1.3 [place] # (Auto) 0.3 Eos # (Auto) 0.1 Baso # (Auto) 0.0 Abs Immat Gran (auto) 0.01 Absolute Neuts (auto) 1.5 L Absolute Nucleated RBC 0.000 Nucleated RBC % (auto) 0.0 Anion Gap 8 L Estim Creat Clear Calc 65.1 Estimated GFR > 60 Fasting Glucose 87 Calcium 8.3 L Total Bilirubin 0.3 AST 16 ALT 11 Alkaline Phosphatase 56 Total Protein 5.4 L Albumin 3.1 L Microbiology Microbiology Results: Microbiology 07/26/23 20:57 Urine Culture - Preliminary Urine clean catch - Urine ramirez top Gram negative justin 07/26/23 20:02 Blood Culture - Preliminary Blood - Venous No growth after 24 hours. 07/26/23 19:02 Blood Culture - Preliminary Blood - Venous No growth after 24 hours. Assessment and Plan (1) UTI (urinary tract infection): Status: Acute (2) Paroxysmal A-fib: Status: Acute Plan 67 y.o. female with history of hypothyroidism, MDD, paroxysmal atrial fibrillation,??supraventricular tachycardia, pulmonary embolism on Eliquis, history of colon cancer s/p resection with colostomy, neurogenic bladder with self-catheterization, conversion disorder, pseudoseizures, hypothyroid, mutliple drug allergies, presented with fever and hematuria. 1.Complicated/recurrent acute uti -received one dose iv gentamycin in eD, -preliminary culture Gram-negative rods -hold eliquis -await final urine and blood cultures 2.Paroxysmal atrial fibrillation (normal sinus rhythm present) -restart Eliquis when clinically appropriate -continue outpatient therapies 3.History of pe -as above. Restart Eliquis when clinically appropriate 4.Seizure disorder (none since admission) -keppra as ordered mechanical due to hematuria full code Requires ongoing inpatient stay secondary to need for IV antibiotics to treat UTI pending cultures Quality Stroke Does the patient have a stroke diagnosis?: No VTE Prior VTE?: Yes VTE Risk Level:: Medical - moderate - high VTE Device Contraindication: N/A - Device Ordered VTE Drug Contraindication: N/A - Med Ordered
[2023-07-28] MEDS: diphenhydrAMINE HCL 50 MG/ML VIAL 25 MG IVPUSH (15:37)
[2023-07-28] MEDS: Atorvastatin Calcium 20 MG TABLET PO (20:35)
[2023-07-28] MEDS: Amitriptyline HCl 25 MG TABLET PO (20:36)
[2023-07-28] MEDS: diphenhydrAMINE HCL 25 MG CAPSULE 50 MG PO (20:36)
[2023-07-28] MEDS: traZODone HCL 50 MG TABLET PO (20:36)
[2023-07-29] VITALS (8 sets, daily range): BP systolic 95–98; BP diastolic 54–55; PULSE 62–76; RESP 16–19; TEMP 36.1–36.7; O2SAT 94–97
[2023-07-29] MEDS: HYDROmorphone HCl 0.5 MG/0.5 ML SYRINGE IVPUSH ×6 (00:47→20:16)
[2023-07-29] MEDS: Omeprazole 20 MG CAPSULE.DR PO (06:04)
[2023-07-29] MEDS: Midodrine HCl 5 MG TABLET PO ×3 (06:04→16:13)
[2023-07-29 06:05] LABS: MANUAL DIFF FLAG NO
[2023-07-29] MEDS: Levothyroxine Sodium 50 MCG TABLET PO (06:05)
[2023-07-29 06:24] LABS: Alanine Aminotransferase 10 U/L (0-31); Albumin Level 3.2 g/dL (3.5-5.0); Alkaline Phosphatase 62 U/L (39-117); Anion Gap 9 (12-20); Aspartate Amino Transferase 13 U/L (5-31); Bilirubin Total 0.5 mg/dL (0.0-1.0); Blood Urea Nitrogen 12 mg/dL (9-16); Calcium 8.5 mg/dL (8.4-10.2); Carbon Dioxide 29 mmol/L (22-29); Chloride 104 mmol/L (96-108); Creatinine Clr Calc Pharmacy 60.2; Estimated Glomerular Filt Rate > 60; Glucose Fasting 85 mg/dL (60-99); Potassium 4.2 mmol/L (3.3-5.1); Sodium 138 mmol/L (135-145); Total Protein 5.5 g/dL (6.5-8.0)
[2023-07-29 06:36] LABS: Basophils Percent Auto 0.7 % (0-2); Eosinophils Absolute Auto 0.2 X10*3/uL (0.0-0.4); Eosinophils Percent Auto 3.7 % (0-4); Hematocrit 32.2 % (37.0-47.0); Hemoglobin 10.6 g/dl (12.0-16.0); Imm Gran Abs Auto 0.01 X10*3/uL (0.00-0.03); Imm Gran Pct Auto 0.2 % (0.0-0.4); Lymphocytes Absolute Auto 1.4 X10*3/uL (1.2-4.9); Lymphocytes Percent Auto 34.7 % (20-40); Mean Corpuscular HGB Conc 32.9 g/dl (31.0-35.0); Mean Corpuscular Hemoglobin 30.7 pg (27.0-33.0); Mean Corpuscular Volume 93.3 fL (80.0-98.0); Mean Platelet Volume 9.6 fL (9.4-12.3); Monocytes Absolute Auto 0.5 X10*3/uL (0.1-1.2); Monocytes Percent Auto 11.7 % (2-11); Platelet Count 261 X10*3/uL (160-400); Red Blood Count 3.45 X10*6/uL (4.20-5.50); Red Cell Distribution Width 13.1 % (11.0-16.0)
[2023-07-29] MEDS: Dicyclomine HCl 10 MG CAPSULE 20 MG PO ×2 (08:01→21:10)
[2023-07-29] MEDS: Potassium Chloride ER 10 MEQ TABLET.ER PO ×2 (08:01→21:09)
[2023-07-29] MEDS: Loratadine 10 MG TABLET PO (08:02)
[2023-07-29] MEDS: levETIRAcetam 250 MG TABLET 750 MG PO ×2 (08:02→21:10)
[2023-07-29] MEDS: DULoxetine HCl 60 MG CAPSULE.DR PO (08:02)
[2023-07-29] MEDS: ondansetron HCL 4 MG/2 ML VIAL IVPUSH ×4 (08:02→20:16)
[2023-07-29] MEDS: Thiamine HCL 100 MG TABLET PO (08:02)
[2023-07-29] MEDS: Multivitamin TABLET 1 TAB PO (08:02)
[2023-07-29] MEDS: Magnesium Oxide 400 MG TABLET PO ×2 (08:02→21:09)
[2023-07-29] MEDS: Digoxin 0.125 MG TABLET PO (08:02)
[2023-07-29] MEDS: oxyBUTYnin chloride 5 MG TABLET PO ×2 (08:02→21:09)
[2023-07-29] MEDS: 0.9 % Sodium Chloride Flush 3 ML SYRINGE IVFLUSH ×3 (08:03→19:58)
[2023-07-29] MEDS: Fluticasone/Vilanterol 100/25 BLST.W.DEV 1 PUFF INHALE (08:10)
--- NOTE | 2023-07-29 11:00 | P.PNIM_ITS ---
Subjective Subjective Date of Service: 07/29/23 Interval History: Continues with lower abdominal crampy pain. Declines voiding trial this a.m. Review of Systems Denies chest pain Denies shortness of breath Denies nausea vomiting diarrhea Denies fever chills Physical Exam 2 Vital Signs: Vital Signs: Last Vital Signs Temp 98.1 F 07/29/23 07:20 Pulse 75 07/29/23 08:11 Resp 18 07/29/23 08:11 BP 97/55 L 07/29/23 07:20 Pulse Ox 97 07/29/23 07:20 O2 Del Method Room Air 07/29/23 07:20 BMI result Body Mass Index 23.4 Const: Other: No acute distress lying quietly in bed Resp: Other: Clear to auscultation bilaterally no rales rhonchi or wheezes Cardio: Other: No S4; positive S1-S2; no S3 murmurs rubs or gallops GI: Other: Soft nontender nondistended normoactive bowel sounds Extrem: Other: No edema bilaterally Objective Data Active Medications Albuterol Sulfate (Albuterol Sulfate 90 Mcg 8 Gm Inhaler) 2 puff INHALE Q6H PRN PRN Reason: bronchospasm Amitriptyline HCl (Amitriptyline Hcl 25 Mg Tablet) 25 mg PO BEDTIME [facility] Last Admin: 07/28/23 20:36 Dose: 25 mg Documented By: MIRTA Atorvastatin Calcium (Atorvastatin Calcium 20 Mg Tablet) 20 mg PO BEDTIME [facility] Last Admin: 07/28/23 20:35 Dose: 20 mg Documented By: MIRTA Cholestyramine Resin (Cholestyramine (With Sugar) 4 Gm Powd.Pack) 4 gm PO BID [facility] Last Admin: 07/29/23 08:03 Dose: Not Given Documented By: COTEMA Non-Admin Reason: Patient Refused Dicyclomine HCl (Dicyclomine Hcl 10 Mg Capsule) 20 mg PO BID [facility] Last Admin: 07/29/23 08:01 Dose: 20 mg Documented By: COTJUSTUS Digoxin (Digoxin 0.125 Mg Tablet) 0.125 mg PO DAILY [facility] Last Admin: 07/29/23 08:02 Dose: 0.125 mg Documented By: COTEMA Diphenhydramine HCl (Diphenhydramine Hcl 25 Mg Capsule) 50 mg PO BEDTIME [facility] Last Admin: 07/28/23 20:36 Dose: 50 mg Documented By: CASTILM Duloxetine HCl (Duloxetine Hcl 60 Mg Capsule.Dr) 60 mg PO DAILY [facility] Last Admin: 07/29/23 08:02 Dose: 60 mg Documented By: LEIDA Fluticasone/Vilanterol (Fluticasone/Vilanterol 100/25 Blst.W.Dev) 1 puff INHALE RDAILY [facility] Last Admin: 07/29/23 08:10 Dose: 1 puff Documented By: TYRONE Hydromorphone HCl (Hydromorphone Hcl 0.5 Mg/0.5 Ml Syringe) 0.5 mg IVPUSH Q4H PRN; Protocol PRN Reason: moderate pain Last Admin: 07/29/23 08:02 Dose: 0.5 mg Documented By: LEIDA Gentamicin Sulfate 270 mg/ (Sodium Chloride) 106.75 mls @ 106.75 mls/hr IV Q24H [facility] Last Infusion: 07/28/23 17:07 Dose: Infused Documented By: LEIDA Levetiracetam (Levetiracetam 250 Mg Tablet) 750 mg PO BID [facility] Last Admin: 07/29/23 08:02 Dose: 750 mg Documented By: LEIDA Levothyroxine Sodium (Levothyroxine Sodium 50 Mcg Tablet) 50 mcg PO DAILY@0600 [facility] Last Admin: 07/29/23 06:05 Dose: 50 mcg Documented By: GARY Loperamide HCl (Loperamide Hcl 2 Mg Capsule) 2 mg PO Q4H PRN PRN Reason: Diarrhea Loratadine (Loratadine 10 Mg Tablet) 10 mg PO DAILY [facility] Last Admin: 07/29/23 08:02 Dose: 10 mg Documented By: LEIDA Magnesium Oxide (Magnesium Oxide 400 Mg Tablet) 400 mg PO BID [facility] Last Admin: 07/29/23 08:02 Dose: 400 mg Documented By: LEIDA Midodrine (Midodrine Hcl 5 Mg Tablet) 5 mg PO TID@0600,1200,1800 [facility] Last Admin: 07/29/23 06:04 Dose: 5 mg Documented By: GARY Multivitamins/Vitamin C (Multivitamin Tablet) 1 tab PO DAILY [facility] Last Admin: 07/29/23 08:02 Dose: 1 tab Documented By: LEIDA Omeprazole (Omeprazole 20 Mg Capsule.Dr) 20 mg PO DAILY@0630 [facility] Last Admin: 07/29/23 06:04 Dose: 20 mg Documented By: GARY Ondansetron HCl (Ondansetron Hcl 4 Mg/2 Ml Vial) 4 mg IVPUSH Q4H PRN PRN Reason: Nausea and Vomiting Last Admin: 07/29/23 08:02 Dose: 4 mg Documented By: COTJUSTUS Oxybutynin Chloride (Oxybutynin Chloride 5 Mg Tablet) 5 mg PO BID [facility] Last Admin: 07/29/23 08:02 Dose: 5 mg Documented By: COTEMA Oxycodone HCl (Oxycodone Hcl Immed Release 5 Mg Tablet) 10 mg PO Q4H PRN PRN Reason: Pain, Moderate(Pain Scale 4-6) Last Admin: 07/27/23 11:50 Dose: 10 mg Documented By: JULIO Potassium Chloride (Potassium Chloride Er 10 Meq Tablet.Er) 10 meq PO BID [facility] Last Admin: 07/29/23 08:01 Dose: 10 meq Documented By: MARCIOEMA Sodium Chloride (0.9 % Sodium Chloride Flush 3 Ml Syringe) 3 ml IVFLUSH QSHIFT [facility] Last Admin: 07/29/23 08:03 Dose: 3 ml Documented By: COTEMA Thiamine HCl (Thiamine Hcl 100 Mg Tablet) 100 mg PO DAILY [facility] Last Admin: 07/29/23 08:02 Dose: 100 mg Documented By: MARCIOEMA Trazodone HCl (Trazodone Hcl 50 Mg Tablet) 50 mg PO BEDTIME [facility] Last Admin: 07/28/23 20:36 Dose: 50 mg Documented By: CASTILM Labs 07/29/23 06:01 07/29/23 06:01 Labs: Laboratory Results - last 24 hr 07/29/23 07/29/23 01:07 EST 06:01 MCV 93.3 MCH 30.7 MCHC 32.9 RDW 13.1 Plt Count 261 MPV 9.6 Immature Gran % (Auto) 0.2 Neut % (Auto) 49.0 Lymph % (Auto) 34.7 [place] % (Auto) 11.7 H Eos % (Auto) 3.7 Baso % (Auto) 0.7 Lymph # (Auto) 1.4 [place] # (Auto) 0.5 Eos # (Auto) 0.2 Baso # (Auto) 0.0 Abs Immat Gran (auto) 0.01 Absolute Neuts (auto) 2.0 Absolute Nucleated RBC 0.000 Nucleated RBC % (auto) 0.0 Hold Purple Top SEE NOTE Anion Gap 9 L Estim Creat Clear Calc 60.2 Estimated GFR > 60 Fasting Glucose 85 Calcium 8.5 Total Bilirubin 0.5 AST 13 ALT 10 Alkaline Phosphatase 62 Total Protein 5.5 L Albumin 3.2 L Microbiology Microbiology Results: Microbiology 07/26/23 20:57 Urine Culture - Final Urine clean catch - Urine ramirez top Escherichia coli 07/26/23 20:02 Blood Culture - Preliminary Blood - Venous No growth after 48 hours. 07/26/23 19:02 Blood Culture - Preliminary Blood - Venous No growth after 48 hours. Assessment and Plan (1) COVID-19: Status: Acute (2) Paroxysmal A-fib: Status: Acute Plan 67 y.o. female with history of hypothyroidism, MDD, paroxysmal atrial fibrillation,??supraventricular tachycardia, pulmonary embolism on Eliquis, history of colon cancer s/p resection with colostomy, neurogenic bladder with self-catheterization, conversion disorder, pseudoseizures, hypothyroid, mutliple drug allergies, presented with fever and hematuria. 1.Complicated/recurrent acute uti -received one dose iv gentamycin in eD, -final culture. . . ESBL E coli sensitive to gentamicin -hold eliquis -blood cultures negative times 48 hours 2.Paroxysmal atrial fibrillation (normal sinus rhythm present) -restart Eliquis . .. Hematuria resolved -continue outpatient therapies 3.History of pe -as above. Restart Eliquis 4.Seizure disorder (none since admission) -keppra as ordered mechanical due to hematuria full code Requires ongoing inpatient stay secondary to need for IV antibiotics to treat UTI pending cultures Quality Stroke Does the patient have a stroke diagnosis?: No VTE Prior VTE?: Yes VTE Risk Level:: Medical - moderate - high VTE Device Contraindication: N/A - Device Ordered VTE Drug Contraindication: N/A - Med Ordered
[2023-07-29] MEDS: Apixaban 5 MG TABLET PO ×2 (12:10→21:09)
[2023-07-29] MEDS: diphenhydrAMINE HCL 50 MG/ML VIAL 25 MG IVPUSH (15:41)
--- NOTE | 2023-07-29 20:21 | PC.NURSE ---
Pt BP has been soft last BP 97/55 at 1906. Pt requested Dilaudid 0.5mg prn Q4hr for abdominal pain. Dr. Tank Alexander notified and said it's ok to give.
[2023-07-29] MEDS: diphenhydrAMINE HCL 25 MG CAPSULE 50 MG PO (21:09)
[2023-07-29] MEDS: Amitriptyline HCl 25 MG TABLET PO (21:09)
[2023-07-29] MEDS: Atorvastatin Calcium 20 MG TABLET PO (21:09)
[2023-07-29] MEDS: traZODone HCL 50 MG TABLET PO (21:09)
[2023-07-30 00:57] VITALS: BP 95/57; PULSE 63; RESP 18; O2SAT 98
[2023-07-30] MEDS: ondansetron HCL 4 MG/2 ML VIAL IVPUSH ×2 (01:03→07:28)
[2023-07-30] MEDS: HYDROmorphone HCl 0.5 MG/0.5 ML SYRINGE IVPUSH ×5 (01:03→22:03)
[2023-07-30] MEDS: Omeprazole 20 MG CAPSULE.DR PO (05:37)
[2023-07-30] MEDS: Levothyroxine Sodium 50 MCG TABLET PO (05:37)
[2023-07-30] MEDS: Midodrine HCl 5 MG TABLET PO ×3 (05:38→17:21)
[2023-07-30 07:03] VITALS: BP 93/54; PULSE 67; RESP 16; TEMP 36.8; O2SAT 96
[2023-07-30 07:06] LABS: MANUAL DIFF FLAG NO
[2023-07-30 07:11] LABS: Basophils Percent Auto 0.5 % (0-2); Eosinophils Absolute Auto 0.1 X10*3/uL (0.0-0.4); Eosinophils Percent Auto 2.6 % (0-4); Hematocrit 34.2 % (37.0-47.0); Hemoglobin 11.2 g/dl (12.0-16.0); Imm Gran Abs Auto 0.01 X10*3/uL (0.00-0.03); Imm Gran Pct Auto 0.2 % (0.0-0.4); Lymphocytes Absolute Auto 1.5 X10*3/uL (1.2-4.9); Mean Corpuscular HGB Conc 32.7 g/dl (31.0-35.0); Mean Corpuscular Hemoglobin 30.4 pg (27.0-33.0); Mean Corpuscular Volume 92.7 fL (80.0-98.0); Mean Platelet Volume 9.9 fL (9.4-12.3); Monocytes Absolute Auto 0.4 X10*3/uL (0.1-1.2); Monocytes Percent Auto 10.1 % (2-11); Neutrophils Absolute Auto 2.3 x10*3/uL (2.0-8.3); Neutrophils Percent Auto 52.6 % (45-73); Platelet Count 239 X10*3/uL (160-400); Red Blood Count 3.69 X10*6/uL (4.20-5.50); Red Cell Distribution Width 12.8 % (11.0-16.0); White Blood Count 4.3 X10*3/uL (4.8-10.8)
[2023-07-30 07:32] LABS: Gentamicin Random 2.2 mcg/mL
[2023-07-30 07:51] LABS: Alanine Aminotransferase 13 U/L (0-31); Albumin Level 3.4 g/dL (3.5-5.0); Alkaline Phosphatase 60 U/L (39-117); Anion Gap 12 (12-20); Aspartate Amino Transferase 23 U/L (5-31); Bilirubin Total 0.4 mg/dL (0.0-1.0); Blood Urea Nitrogen 17 mg/dL (9-16); Carbon Dioxide 29 mmol/L (22-29); Chloride 101 mmol/L (96-108); Creatinine Clr Calc Pharmacy 56.8; Estimated Glomerular Filt Rate > 60; Glucose Fasting 90 mg/dL (60-99); Potassium 4.9 mmol/L (3.3-5.1); Sodium 137 mmol/L (135-145); Total Protein 6.4 g/dL (6.5-8.0)
[2023-07-30] MEDS: oxyCODONE HCl Immed Release 5 MG TABLET 10 MG PO (09:14)
[2023-07-30] MEDS: Apixaban 5 MG TABLET PO ×2 (09:15→20:15)
[2023-07-30] MEDS: Magnesium Oxide 400 MG TABLET PO ×2 (09:15→20:16)
[2023-07-30] MEDS: DULoxetine HCl 60 MG CAPSULE.DR PO (09:15)
[2023-07-30] MEDS: levETIRAcetam 250 MG TABLET 750 MG PO ×2 (09:15→20:15)
[2023-07-30] MEDS: Thiamine HCL 100 MG TABLET PO (09:15)
[2023-07-30] MEDS: Digoxin 0.125 MG TABLET PO (09:15)
[2023-07-30] MEDS: Loratadine 10 MG TABLET PO (09:15)
[2023-07-30] MEDS: Potassium Chloride ER 10 MEQ TABLET.ER PO ×2 (09:15→20:16)
[2023-07-30] MEDS: Multivitamin TABLET 1 TAB PO (09:15)
[2023-07-30] MEDS: oxyBUTYnin chloride 5 MG TABLET PO ×2 (09:15→20:16)
[2023-07-30] MEDS: Dicyclomine HCl 10 MG CAPSULE 20 MG PO ×2 (09:15→20:16)
[2023-07-30] MEDS: 0.9 % Sodium Chloride Flush 3 ML SYRINGE IVFLUSH ×3 (09:16→22:13)
--- NOTE | 2023-07-30 12:14 | MHC.CM.PN ---
per rounds ptexpected to get a midline today today dc plan home w/option care ,[facility] and iv antibiotuics
--- NOTE | 2023-07-30 12:37 | P.PNIM_ITS ---
Subjective Subjective Date of Service: 07/30/23 Interval History: Complaining of abdominal pain with radiation to left flank and left midback, denies fever chills, tolerating diet, no nausea, no vomiting, no abdominal pain, Degroot catheter in place with clear urine. Review of Systems All other system reviewed and negative Physical Exam 2 Vital Signs: Vital Signs: Last Vital Signs Temp 98.3 F 07/30/23 07:03 Pulse 67 07/30/23 07:03 Resp 16 07/30/23 07:03 BP 93/54 L 07/30/23 07:03 Pulse Ox 96 07/30/23 07:03 O2 Del Method Room Air 07/30/23 07:03 BMI result Body Mass Index 23.4 Const: Other: Constitutional : Awake, alert sitting comfortably in no acute distress Neck : Normal inspection, Supple Cardiovascular : RRR, no JVP, no lower extremity edema Respiratory : Clear to auscultation, no crackles, wheezes or rhonchi Gastrointestinal: soft, Normal bowel sounds, no significant tenderness in suprapubic area, Colostomy in place. Back tenderness to left make back with superficial palpation Skin : Warm, Dry Neurological : Alert & oriented x3, No focal deficit Objective Data Active Medications Albuterol Sulfate (Albuterol Sulfate 90 Mcg 8 Gm Inhaler) 2 puff INHALE Q6H PRN PRN Reason: bronchospasm Amitriptyline HCl (Amitriptyline Hcl 25 Mg Tablet) 25 mg PO BEDTIME [facility] Last Admin: 07/29/23 21:09 Dose: 25 mg Documented By: DADA Apixaban (Apixaban 5 Mg Tablet) 5 mg PO BID [facility] Last Admin: 07/30/23 09:15 Dose: 5 mg Documented By: STEPHY Atorvastatin Calcium (Atorvastatin Calcium 20 Mg Tablet) 20 mg PO BEDTIME [facility] Last Admin: 07/29/23 21:09 Dose: 20 mg Documented By: DADA Cholestyramine Resin (Cholestyramine (With Sugar) 4 Gm Powd.Pack) 4 gm PO BID [facility] Last Admin: 07/30/23 09:20 Dose: Not Given Documented By: STEPHY Non-Admin Reason: Patient Refused Dicyclomine HCl (Dicyclomine Hcl 10 Mg Capsule) 20 mg PO BID [facility] Last Admin: 07/30/23 09:15 Dose: 20 mg Documented By: STEPHY Digoxin (Digoxin 0.125 Mg Tablet) 0.125 mg PO DAILY [facility] Last Admin: 07/30/23 09:15 Dose: 0.125 mg Documented By: STEPHY Diphenhydramine HCl (Diphenhydramine Hcl 25 Mg Capsule) 50 mg PO BEDTIME [facility] Last Admin: 07/29/23 21:09 Dose: 50 mg Documented By: DADA Diphenhydramine HCl (Diphenhydramine Hcl 50 Mg/Ml Vial) 25 mg IVPUSH DAILY [facility] Duloxetine HCl (Duloxetine Hcl 60 Mg Capsule.Dr) 60 mg PO DAILY [facility] Last Admin: 07/30/23 09:15 Dose: 60 mg Documented By: STEPHY Fluticasone/Vilanterol (Fluticasone/Vilanterol 100/25 Blst.W.Dev) 1 puff INHALE RDAILY [facility] Last Admin: 07/30/23 07:21 Dose: Not Given Documented By: RADHA Non-Admin Reason: Patient Refused Gentamicin Sulfate 270 mg/ (Sodium Chloride) 106.75 mls @ 106.75 mls/hr IV Q24H [facility] Last Infusion: 07/29/23 17:20 Dose: Infused Documented By: LEIDA Levetiracetam (Levetiracetam 250 Mg Tablet) 750 mg PO BID [facility] Last Admin: 07/30/23 09:15 Dose: 750 mg Documented By: STEPHY Levothyroxine Sodium (Levothyroxine Sodium 50 Mcg Tablet) 50 mcg PO DAILY@0600 [facility] Last Admin: 07/30/23 05:37 Dose: 50 mcg Documented By: DADA Loperamide HCl (Loperamide Hcl 2 Mg Capsule) 2 mg PO Q4H PRN PRN Reason: Diarrhea Loratadine (Loratadine 10 Mg Tablet) 10 mg PO DAILY [facility] Last Admin: 07/30/23 09:15 Dose: 10 mg Documented By: STEPHY Magnesium Oxide (Magnesium Oxide 400 Mg Tablet) 400 mg PO BID [facility] Last Admin: 07/30/23 09:15 Dose: 400 mg Documented By: STEPHY Midodrine (Midodrine Hcl 5 Mg Tablet) 5 mg PO TID@0600,1200,1800 [facility] Last Admin: 07/30/23 11:53 Dose: 5 mg Documented By: STEPHY Multivitamins/Vitamin C (Multivitamin Tablet) 1 tab PO DAILY [facility] Last Admin: 07/30/23 09:15 Dose: 1 tab Documented By: STEPHY Omeprazole (Omeprazole 20 Mg Capsule.Dr) 20 mg PO DAILY@0630 [facility] Last Admin: 07/30/23 05:37 Dose: 20 mg Documented By: DADA Ondansetron HCl (Ondansetron Hcl 4 Mg/2 Ml Vial) 4 mg IVPUSH Q4H PRN PRN Reason: Nausea and Vomiting Last Admin: 07/30/23 07:28 Dose: 4 mg Documented By: CORTEZ Oxybutynin Chloride (Oxybutynin Chloride 5 Mg Tablet) 5 mg PO BID [facility] Last Admin: 07/30/23 09:15 Dose: 5 mg Documented By: STEPHY Oxycodone HCl (Oxycodone Hcl Immed Release 5 Mg Tablet) 10 mg PO Q4H PRN PRN Reason: Pain, Moderate(Pain Scale 4-6) Last Admin: 07/30/23 09:14 Dose: 10 mg Documented By: STEPHY Potassium Chloride (Potassium Chloride Er 10 Meq Tablet.Er) 10 meq PO BID [facility] Last Admin: 07/30/23 09:15 Dose: 10 meq Documented By: STEPHY Sodium Chloride (0.9 % Sodium Chloride Flush 3 Ml Syringe) 3 ml IVFLUSH QSHIFT [facility] Last Admin: 07/30/23 09:16 Dose: 3 ml Documented By: STEPHY Thiamine HCl (Thiamine Hcl 100 Mg Tablet) 100 mg PO DAILY [facility] Last Admin: 07/30/23 09:15 Dose: 100 mg Documented By: STEPHY Trazodone HCl (Trazodone Hcl 50 Mg Tablet) 50 mg PO BEDTIME [facility] Last Admin: 07/29/23 21:09 Dose: 50 mg Documented By: DADA Labs 07/30/23 07:01 07/30/23 07:01 Labs: Laboratory Results - last 24 hr 07/29/23 07/30/23 01:07 EST 07:01 MCV 92.7 MCH 30.4 MCHC 32.7 RDW 12.8 Plt Count 239 MPV 9.9 Immature Gran % (Auto) 0.2 Neut % (Auto) 52.6 Lymph % (Auto) 34.0 [place] % (Auto) 10.1 Eos % (Auto) 2.6 Baso % (Auto) 0.5 Lymph # (Auto) 1.5 [place] # (Auto) 0.4 Eos # (Auto) 0.1 Baso # (Auto) 0.0 Abs Immat Gran (auto) 0.01 Absolute Neuts (auto) 2.3 Absolute Nucleated RBC 0.000 Nucleated RBC % (auto) 0.0 Anion Gap 12 Estim Creat Clear Calc 56.8 Estimated GFR > 60 Fasting Glucose 90 Calcium 9.0 Total Bilirubin 0.4 AST 23 ALT 13 Alkaline Phosphatase 60 Total Protein 6.4 L Albumin 3.4 L Random Gentamicin 2.2 Microbiology Microbiology Results: Microbiology 07/26/23 20:57 Urine Culture - Final Urine clean catch - Urine ramirez top Escherichia coli Assessment and Plan (1) COVID-19: Status: Acute (2) Paroxysmal A-fib: Status: Acute Plan 67 y.o. female with history of hypothyroidism, MDD, paroxysmal atrial fibrillation,??supraventricular tachycardia, pulmonary embolism on Eliquis, history of colon cancer s/p resection with colostomy, neurogenic bladder with self-catheterization, conversion disorder, pseudoseizures, hypothyroid, mutliple drug allergies, presented with fever and hematuria. 1.Complicated/recurrent acute uti -complaining of left mid back and flank pain, no fevers, no chills - hematuria resolved -urine culture grew ESBL E coli sensitive to gentamicin -blood cultures negative times 48 hours Id recommend 14 days of IV gentamicin will place midline spoke with case preparer and liner for discharge plan, follow renal function closely on IV Dilaudid and oxycodone for pain, will gradually wean Dilaudid 2.Paroxysmal atrial fibrillation (normal sinus rhythm present) -continue Eliquis . .. Hematuria resolved -continue outpatient therapies 3.History of pulmonary embolism continue Eliquis 4.Seizure disorder (none since admission) -keppra as ordered full code Requires ongoing inpatient stay secondary to need for IV antibiotics to treat UTI /IV analgesics Quality Stroke Does the patient have a stroke diagnosis?: No VTE Prior VTE?: Yes VTE Risk Level:: Medical - moderate - high VTE Device Contraindication: N/A - Device Ordered VTE Drug Contraindication: N/A - Med Ordered
[2023-07-30 13:44] VITALS: BP 105/57; PULSE 74; O2SAT 97
--- NOTE | 2023-07-30 17:13 | PC.NURSE ---
several attempts made to place midline IV without success by this RN and J[facility] SANTOS. will attempt access tomorrow.pt aditya procedure well.
[2023-07-30] MEDS: diphenhydrAMINE HCL 50 MG/ML VIAL 25 MG IVPUSH (17:21)
[2023-07-30 17:22] VITALS: BP 104/65; PULSE 74; RESP 16; TEMP 36.7; O2SAT 98
[2023-07-30 19:17] VITALS: BP 101/60; PULSE 73; RESP 17; TEMP 36.5; O2SAT 95
[2023-07-30] MEDS: Atorvastatin Calcium 20 MG TABLET PO (20:15)
[2023-07-30] MEDS: diphenhydrAMINE HCL 25 MG CAPSULE 50 MG PO (20:16)
[2023-07-30] MEDS: Amitriptyline HCl 25 MG TABLET PO (20:16)
[2023-07-30] MEDS: traZODone HCL 50 MG TABLET PO (20:17)
[2023-07-31] MEDS: HYDROmorphone HCl 0.5 MG/0.5 ML SYRINGE IVPUSH ×2 (02:03→06:32)
[2023-07-31] MEDS: ondansetron HCL 4 MG/2 ML VIAL IVPUSH (02:03)
[2023-07-31 03:17] VITALS: BP 92/58; PULSE 62; RESP 18; TEMP 36.7; O2SAT 97
[2023-07-31] MEDS: Levothyroxine Sodium 50 MCG TABLET PO (06:26)
[2023-07-31] MEDS: Omeprazole 20 MG CAPSULE.DR PO (06:26)
[2023-07-31] MEDS: Midodrine HCl 5 MG TABLET PO ×2 (06:26→13:37)
[2023-07-31 07:17] VITALS: BP 92/54; PULSE 70; RESP 16; TEMP 36.8; O2SAT 94
--- NOTE | 2023-07-31 10:37 | HO.MIDLINE_ITS ---
Midline Insertion MIDLINE INSERTION Diagnosis: UTI Indication: retirement antibiotics needed Pertinent Labs: reviewed Technique: Using sterile technique including cap and mask, glove and drape, the left arm was prepped and draped in the usual sterile fashion of full barrier technique with CHG. Using ultrasound guidance, left brachial vein access was obtained twice by Singh Vasquez RN, but unable to pass guidewire. Left brachial vein was accessed on first attempt by Nimisha Miranda RN. 20G X 8CM Non-PASV ST Midline was positioned. The procedure was performed in S272. Ultrasound was used to document vein patency and for needle entry. A formal ultrasound picture was recorded. Vascular Potato [employer] Sacking Machine Operator has released the line for use and it is currently dressed with a StatLock, Tegaderm, and CHG disc. Verification has been performed for blood return and line patency. Arm Circumference: 28CM Equipment: BARD PowerGlide ST Midline Catheter Type: 20G X 8CM non-PASV ST Midline catheter Lot #: [id number]
[2023-07-31] MEDS: Digoxin 0.125 MG TABLET PO (10:54)
[2023-07-31] MEDS: Potassium Chloride ER 10 MEQ TABLET.ER PO (10:55)
[2023-07-31] MEDS: diphenhydrAMINE HCL 50 MG/ML VIAL 25 MG IVPUSH ×2 (10:55→13:43)
[2023-07-31] MEDS: DULoxetine HCl 60 MG CAPSULE.DR PO (10:55)
[2023-07-31] MEDS: Dicyclomine HCl 10 MG CAPSULE 20 MG PO (10:56)
[2023-07-31] MEDS: levETIRAcetam 250 MG TABLET 750 MG PO (10:56)
[2023-07-31] MEDS: Apixaban 5 MG TABLET PO (10:56)
[2023-07-31] MEDS: 0.9 % Sodium Chloride Flush 3 ML SYRINGE IVFLUSH (10:56)
[2023-07-31] MEDS: oxyBUTYnin chloride 5 MG TABLET PO (10:56)
[2023-07-31] MEDS: Multivitamin TABLET 1 TAB PO (10:57)
[2023-07-31] MEDS: Thiamine HCL 100 MG TABLET PO (10:57)
[2023-07-31] MEDS: Magnesium Oxide 400 MG TABLET PO (10:57)
[2023-07-31] MEDS: Loratadine 10 MG TABLET PO (10:57)
--- NOTE | 2023-07-31 11:32 | PM.DS ---
DS: Providers Provider Date of Service: 07/31/23 Date of admission: 07/26/23 21:58 Primary care physician: Bryson Wright MD Consults: 07/26/23 21:56 Consult to Infectious Diseases Routine Consulting Provider: [facility] [place] Reason for consultation: recurrent uti, mulitple allergies Consult to Urology Routine Consulting Provider: Aman Gagnon Reason for consultation: recurrent uti, hematuria, neurogenic bladder DS: Diagnosis Discharge Diagnosis (1) COVID-19: Status: Acute (2) Paroxysmal A-fib: Status: Acute DS: Summary Hospital Course Hospital Course: History of presenting illness: Date of Service: 07/26/23 Chief Complaint: hematuria, fever 67 y.o. female with history of hypothyroidism, MDD, paroxysmal atrial fibrillation,??supraventricular tachycardia, pulmonary embolism on Eliquis, history of colon cancer s/p resection with colostomy, neurogenic bladder with self-catheterization, conversion disorder, pseudoseizures, hypothyroid, mutliple drug allergies, presented with fever and hematuria. patient was [place] [facility] [place] after hospitalization for UTI. continued to have dysuria at home. 2 days ptp reports marcy hematuria, fever of 102F, decided to come to ED today. in ED not septic, urine grossly abnormal. Hospital course: 67 y.o. female with history of hypothyroidism, MDD, paroxysmal atrial fibrillation,??supraventricular tachycardia, pulmonary embolism on Eliquis, history of colon cancer s/p resection with colostomy, neurogenic bladder with self-catheterization, conversion disorder, pseudoseizures, hypothyroid, mutliple drug allergies, presented with fever and hematuria and diagnosed to have. 1.Complicated/recurrent acute uti patient admitted to medical floor, she had no recurrent fevers chills, normal WBC count, treated with IV gentamicin, hematuria resolved urine culture grew ESBL E coli sensitive to gentamicin,blood cultures negative times 48 hours, patient evaluated by Dr. Valdes from [place] she recommended 14 days of IV gentamicin , midline placed patient will be discharged home on IV gentamicin and day 11 17 , will order IV Benadryl half an hour before IV gentamicin, due to chronic flank pain , recommend to continue oxycodone , recommend ambulation and physical therapy 2.Paroxysmal atrial fibrillation (normal sinus rhythm present) continue Eliquis 0 3.History of pulmonary embolism continue Eliquis 4.Seizure disorder (none since admission) continue Keppra.. Time Attestation Discharge coordination time: Greater than 30 minutes Quality: Safe Use of Opioids Does Pt have an Active Cancer Diagnosis on the Problem List?: No Quality: Stroke Does the patient have a stroke diagnosis?: No Physical Exam Vital Signs: Vital Signs: Last Vital Signs Temp 98.2 F 07/31/23 07:17 Pulse 70 07/31/23 07:17 Resp 16 07/31/23 07:17 BP 92/54 L 07/31/23 07:17 Pulse Ox 94 07/31/23 07:17 O2 Del Method Room Air 07/31/23 07:17 BMI result Body Mass Index 23.4 Const: Other: Constitutional : Awake, alert sitting comfortably in no acute distress Neck : Normal inspection, Supple Cardiovascular : RRR, no JVP, no lower extremity edema Respiratory : Clear to auscultation, no crackles, wheezes or rhonchi Gastrointestinal: soft, Normal bowel sounds, no significant tenderness in suprapubic area, Colostomy in place. Back tenderness to left mid back with superficial palpation,no cva tenderness Skin : Warm, Dry Neurological : Alert & oriented x3, No focal deficit DS: Data Data Completed and Pending Completed studies during hospitalization [Text1]: Procedures Insertion of Infusion Device into Left Brachial Vein, Percutaneous Approach (01/07/22) Labs on day of discharge: Preliminary micro results at discharge 07/26/23 20:02 Blood Culture - Preliminary Blood - Venous No growth after 48 hours. 07/26/23 19:02 Blood Culture - Preliminary Blood - Venous No growth after 48 hours. Discharge Plan Discharge Anticipated Discharge Date/Time: 07/31/23 11:26 Patient Disposition: Home Health Service Discharge Diagnosis: Complicated/recurrent acute UTI Referrals: [facility] [Other] - 1 Day ([facility] WILL DELIVER YOUR IV ANTIBIOTICS AND SUPPLIES, PLEASE FEEL FREE TO CALL AFTER HOURS IF YOU NEED EXTRA NURSING SUPPORT. ) [facility] [Outside] - 1 Day (CORRECTION FOR IV GENTAMICIN X 14 DAYS. ) Bryson Wright MD [Primary Care Provider] - 1 Week Discharge Medications: Continued (DME) colostomy supplies See Rx Instructions .Route .MEDSUPPLY Qty: 1 11RF Rx Instructions: As directed albuterol sulfate 90 mcg/actuation HFA aerosol inhaler 2 puff inhalation Q6H PRN (Reason: bronchospasm) Qty: 18 1RF digoxin 125 mcg (0.125 mg) tablet 125 mcg PO DAILY Qty: 90 0RF Hold Instructions: Doctor's Order levetiracetam 750 mg tablet 750 mg PO BID 30 Days Qty: 60 3RF levothyroxine 50 mcg tablet 50 mcg PO DAILY Qty: 90 1RF loratadine 10 mg tablet 10 mg PO DAILY Qty: 90 1RF midodrine 5 mg tablet 5 mg PO TID Qty: 90 0RF simvastatin 40 mg tablet 40 mg PO BEDTIME Qty: 90 1RF amitriptyline 25 mg tablet 25 mg PO BEDTIME 30 Days Qty: 30 0RF Eliquis 5 mg tablet 5 mg PO BID 30 Days Qty: 60 3RF budesonide-formoterol [Symbicort] 80-4.5 mcg/actuation HFA aerosol inhaler 2 puff INHALATION BID Qty: 10.2 3RF cholestyramine (with sugar) 4 gram powder in packet 4 g PO BID 30 Days Qty: 60 3RF Rx Instructions: administer w/meal; avoid other meds within 1hr before or 4-6hr after dose dicyclomine 20 mg tablet 20 mg PO BID Qty: 60 2RF diphenhydramine HCl [Banophen] 25 mg tablet 50 mg PO BEDTIME Qty: 60 3RF duloxetine [Cymbalta] 60 mg capsule,delayed release(DR/EC) 60 mg PO DAILY Qty: 30 3RF oxybutynin chloride 5 mg tablet 5 mg PO BID Qty: 60 3RF CertaVite Senior 0.4 mg-300 mcg- 250 mcg tablet 1 tab PO DAILY Qty: 30 5RF pantoprazole 40 mg tablet,delayed release (DR/EC) 40 mg PO DAILY Qty: 30 3RF trazodone 50 mg tablet 50 mg PO BEDTIME Qty: 30 3RF thiamine HCl (vitamin B1) [Vitamin B-1] 100 mg tablet 100 mg PO DAILY Qty: 30 5RF (DME) colostomy bags Misc See Rx Instructions .Route Qty: 5 5RF Rx Instructions: As directed loperamide 2 mg capsule 2 mg PO NEEDED PRN (Reason: Diarrhea) magnesium oxide 400 mg (241.3 mg magnesium) tablet 1 tab PO BID potassium chloride 10 mEq Capsule, Extended Release 10 meq PO BID oxycodone 5 mg capsule 5 mg PO BID PRN (Reason: moderate pain (scale score 5-6)) Qty: 7 0RF Rx Instructions: Partial Fill upon patient request. lidocaine [Aspercreme (lidocaine)] 4 % adhesive patch,medicated 1 patch topical DAILY PRN (Reason: pain) Qty: 30 0RF Discharge Orders: Discharge Order (Routine); Ordered 07/31/23 Ordered By: Kaye Mcclelland Diet: Advance to usual diet Activity on Discharge: As tolerated Stand Alone Forms: Patient Portal Discharge page Care Plan Goals: Take IV gentamicin q 24h, as directed through , take Benadryl half an hour before IV gentamicin. Drink plenty of fluids Take all home medications as before Health Concerns: Chronic pain Plan of Treatment: Outpatient follow-up with primary care physician call for appointment. Assessment: as above
[2023-07-31] MEDS: oxyCODONE HCl Immed Release 5 MG TABLET 10 MG PO (11:38)
--- NOTE | 2023-07-31 11:49 | MHC.CM.PN ---
IMM 07/31/23 DELIVERED TO BEDSIDE, CM MET W/PT TO DISCUSS DISPO AND PT DECLINES NEED FOR BEDSIDE IV TEACH SHE HAS HAD IV ABX AT HOME MULTIPLE TIMES, PLAN FOR D/C LATER TODAY AFTER HER 4PM DOSE OF IV ABX, PT REPORTS SHE HAS NO TRANSPORTATION HOME AND CM WILL SET UP [facility] FOR PT.
--- NOTE | 2023-07-31 13:12 | P.CDIM_ITS ---
PROVIDER RESPONSE TEXT: To clarify, the appropriate diagnosis supported by the clinical indicators: COVID was ruled out QUERY TEXT: PHYSICIAN'S DOCUMENTATION REQUEST Date of Query: 07/31/2023 07:59 AM EST Patient Name: Christi Donald Admit Date: 07/27/2023 Dear Kaye Mcclelland, A review of the medical record indicates additional documentation may be needed. Please review below and update the documentation accordingly. Clinical Indicators: Hospitalist Progress Note 07/30/23 /Assessment and Plan: COVID 19: Acute Lab note 07/26/23: COVID negative Please clarify the following: COVID was present on admission and is now resolved COVID was present on admission and is still being monitored, evaluated, or treated COVID was ruled out COVID is still a likely, suspected, probable diagnosis Other (explain)Clinically unable to determine (explain)Thank you, Rehana Munoz RN Use of terms such as suspected, likely, concern for, or probable (associated with a specific diagnosi s that is being evaluated, monitored, or treated as if it exists) are acceptable and can be coded in the inpatient se tting, when documented at the time of discharge. Please use your independent medical judgment in providing your response. THIS QUERY IS PART OF THE PERMANENT MEDICAL RECORD
== END 2023-07-31 15:51 | disposition home health service (06) | DRG 690 ==
LOC: HO.ED 21:34 → HO.EDOVER 22:03 → HO.IMC 07-27 00:49 → HO.S3 07-27 08:56
PROVIDERS: Hospitalist; Physician Assistant; Admitting Provider Internal Medicine; Emergency Provider Student in an Organized Health Care Education/Training Program; PCP Internal Medicine; Visit Provider Hospitalist
DX: N39.0 Urinary tract infection, site not specified (principal); Z16.12 Extended spectrum beta lactamase (ESBL) resistance; R31.0 Gross hematuria; K90.0 Celiac disease; N31.9 Neuromuscular dysfunction of bladder, unspecified; I48.0 Paroxysmal atrial fibrillation; E03.9 Hypothyroidism, unspecified; G40.909 Epilepsy, unspecified, not intractable, without status epilepticus; Z20.822 Contact with and (suspected) exposure to COVID-19; Z86.711 Personal history of pulmonary embolism; Z85.038 Personal history of other malignant neoplasm of large intestine; B96.20 Unspecified Escherichia coli [E. coli] as the cause of diseases classified elsewhere; Z93.3 Colostomy status; Z87.440 Personal history of urinary (tract) infections; Z79.01 Long term (current) use of 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; Z79.890 Hormone replacement therapy; Z79.899 Other long term (current) drug therapy
CPT/HCPCS: 36410; 36415; 80048; 80053; 80170; 81001; 83605; 83735; 85025; 85027; 87040; 87086; 87088; 87186; 87635; 93005; 94640; 99285; C1758; J1170; J1200; J1580; J2270; J2405

== ENCOUNTER → 2023-07-26 21:58 | Outpatient (BNV) | payer MEDICARE, MEDICAID, SELFPAY | PROVIDERS: Admitting Provider Internal Medicine; PCP Internal Medicine; Visit Provider Internal Medicine | DX: U07.1 COVID-19 (principal); I48.0 Paroxysmal atrial fibrillation | CPT/HCPCS: 99223; 99233; 99239 ==

== ENCOUNTER → 2023-07-26 21:58 | Outpatient (BNV) | payer MEDICARE, MEDICAID, SELFPAY | PROVIDERS: Admitting Provider Internal Medicine; Emergency Provider Student in an Organized Health Care Education/Training Program; PCP Internal Medicine; Visit Provider Urology | DX: N31.9 Neuromuscular dysfunction of bladder, unspecified (principal); N39.0 Urinary tract infection, site not specified; R31.0 Gross hematuria | CPT/HCPCS: 99232 ==

== ENCOUNTER → 2023-07-26 21:58 | Outpatient (BNV) | payer MEDICARE, MEDICAID, SELFPAY | PROVIDERS: Admitting Provider Internal Medicine; Emergency Provider Student in an Organized Health Care Education/Training Program; PCP Internal Medicine; Visit Provider Internal Medicine | DX: R31.0 Gross hematuria (principal); N39.0 Urinary tract infection, site not specified; Z88.1 Allergy status to other antibiotic agents; R10.2 Pelvic and perineal pain | CPT/HCPCS: 99222 ==

== ENCOUNTER 2023-08-08 11:41 | Emergency (ER) | payer MEDICARE, MEDICAID, SELFPAY ==
--- NOTE | 2023-08-08 11:56 | ED.FEMALEGU ---
HPI - Female Genitourinary General Chief complaint: Urogenital-Female Stated complaint: Bleeding in urine bag Time Seen by Provider: 08/08/23 12:22 Related Data Home Medications Medication Instructions Recorded Confirmed loperamide 2 mg capsule 2 mg PO NEEDED PRN Diarrhea 01/07/22 07/26/23 magnesium oxide 400 mg (241.3 mg 1 tab PO BID 01/07/22 07/26/23 magnesium) tablet potassium chloride 10 mEq 10 meq PO BID 07/14/23 07/26/23 capsule,extended release Previous Rx's Medication Instructions Recorded colostomy supplies #1 ea 04/16/23 lidocaine 4 % topical patch 1 patch topical DAILY PRN pain #30 07/05/23 (Aspercreme (lidocaine)) ea oxycodone 5 mg capsule 5 mg PO BID PRN moderate pain 07/19/23 (scale score 5-6) #7 caps Symbicort 80 mcg-4.5 mcg/actuation 2 puff inhalation BID #10.2 grams 07/20/23 HFA aerosol inhaler (budesonide-formoterol) albuterol sulfate 90 mcg/actuation 2 puff inhalation Q6H PRN 07/20/23 aerosol inhaler bronchospasm #18 grams amitriptyline 25 mg tablet 25 mg PO BEDTIME 30 days #30 tabs 07/20/23 apixaban 5 mg tablet (Eliquis) 5 mg PO BID 30 days #60 tabs 07/20/23 cholestyramine (with sugar) 4 gram 4 g PO BID 30 days #60 ea 07/20/23 powder for susp in a packet dicyclomine 20 mg tablet 20 mg PO BID #60 tabs 07/20/23 digoxin 125 mcg (0.125 mg) tablet 125 mcg PO DAILY #90 tabs 07/20/23 diphenhydramine HCl 25 mg tablet 50 mg (2 x 25 mg) PO BEDTIME #60 07/20/23 (Banophen) tabs duloxetine 60 mg capsule,delayed 60 mg PO DAILY #30 caps 07/20/23 release (Cymbalta) levetiracetam 750 mg tablet 750 mg PO BID 30 days #60 tabs 07/20/23 levothyroxine 50 mcg tablet 50 mcg PO DAILY #90 tabs 07/20/23 loratadine 10 mg tablet 10 mg PO DAILY #90 tabs 07/20/23 midodrine 5 mg tablet 5 mg PO TID #90 tabs 07/20/23 ulucykqs-pnb-qaqku acid 0.4 1 tab PO DAILY #30 tabs 07/20/23 mg-lycopene 300 mcg-lutein 250 mcg tablet (CertaVite Senior) oxybutynin chloride 5 mg tablet 5 mg PO BID #60 tabs 07/20/23 pantoprazole 40 mg tablet,delayed 40 mg PO DAILY #30 tabs 07/20/23 release simvastatin 40 mg tablet 40 mg PO BEDTIME #90 tabs 07/20/23 thiamine HCl (vitamin B1) 100 mg 100 mg PO DAILY #30 tabs 07/20/23 tablet (Vitamin B-1) trazodone 50 mg tablet 50 mg PO BEDTIME #30 tabs 07/20/23 colostomy bags #5 ea 07/24/23 oxycodone 5 mg tablet 5 mg PO BID PRN pain (scale score 07/31/23 7-10) #10 tabs cane #1 ea 08/02/23 Allergies Allergy/AdvReac Type Severity Reaction Status Date / Time erythromycin base Allergy Severe Anaphylaxis Verified 07/13/23 10:05 [ERYTHROMYCIN BASE] levofloxacin [From Levaquin] Allergy Severe Anaphylaxis Verified 07/13/23 10:05 Penicillins [PCN] Allergy Severe Anaphylaxis Verified 07/13/23 10:05 seafood Allergy Severe Anaphylaxis Verified 07/13/23 10:05 Sulfa (Sulfonamide Allergy Severe Anaphylaxis, Verified 07/13/23 10:05 Antibiotics) vomiting [SULFA (SULFONAMIDE ANTIBIOTICS)] Tetracyclines Allergy Severe Anaphylaxis Verified 07/13/23 10:05 divalproex sodium [Depakote] Allergy Unknown altered Verified 07/13/23 10:05 mental status gluten [GLUTEN] Allergy Unknown BLOATING,RA Verified 07/13/23 10:05 SH rice Allergy Unknown Verified 07/13/23 10:05 PMFSH Past Medical History Medical History History of pulmonary embolus (PE) Allergy to multiple antibiotics Acute suprapubic pain Neurogenic bladder, NOS COVID-19 Primary cancer of foot Pulmonary embolism Degenerative cervical disc Lumbar disc disease Celiac disease Pure hypercholesterolemia Epilepsy Hypothyroidism COPD (chronic obstructive pulmonary disease) Pseudoseizure Conversion disorder Colon cancer Paroxysmal A-fib Allergy to multiple drugs Deep vein thrombosis Surgical History History of arthroplasty History of hysterectomy (~1979) Hx of cholecystectomy S/P IVC filter History of partial surgical removal of colon History of partial gastrectomy History of colectomy History of colostomy reversal History of bladder surgery History of sinus surgery History of facial surgery History of colonoscopy Family History Family History Mother CAD (coronary artery disease) Other Mental health disorder Social History Social History Household Members: None Household Members Other:: 1 Housing: Apartment Do you presently have visiting nurse or other home services: Yes Alcohol intake: former Patient Tobacco Use Status: Never used Tobacco Smoked in Last 30 Days: No e-Cigarette/Vaping Use: Never Used Second Hand Smoke Exposure: Yes Use of substances other than those prescribed or required for medical reasons: No Advance Directives: Yes Advance Directives on File: Yes Advance Directives Date on File: 08/08/23 service: No Current occupational status: disabled Cognitive needs: Yes (cane) Hearing needs: No Vision needs: Yes (Glasses) Physical Exam Vital Signs: Vital Signs: Last Vital Signs Temp 98.5 F 08/08/23 13:36 Pulse 89 08/08/23 13:36 Resp 16 08/08/23 13:36 BP 119/72 08/08/23 13:36 Pulse Ox 96 08/08/23 13:36 O2 Del Method Room Air 08/08/23 13:36 BMI result Body Mass Index 22.1 Course Course Course Narrative: RME: 67 y.o. female with history of hypothyroidism, MDD, paroxysmal atrial fibrillation,??supraventricular tachycardia, pulmonary embolism on Eliquis, history of colon cancer s/p resection with colostomy, neurogenic bladder with self-catheterization, conversion disorder, pseudoseizures, hypothyroid, mutliple drug allergies, presents to the ED c/o gross hematuria x6 days w/ fever Tmax 101 & abdominal pain. Recently discharged from our facility on 07/31/23 for complicated UTI Cx growing ESBL E.Coli w/PICC line in place currently on Gentamicin. Admits to feeling dizzy/lightheaded EKG, Labs, UA ordered Full HPI, ROS and PE to be performed by primary ED provider. Medications Administered Discontinued Medications Generic Name Dose Route Start Last Admin Trade Name Freq PRN Reason Stop Dose Admin Hydromorphone HCl 0.5 mg 08/08/23 13:16 08/08/23 13:23 Hydromorphone Hcl 0.5 Mg/0.5 Ml Syringe IVPUSH 08/08/23 13:17 0.5 mg ONCE ONE Administration Protocol Sodium Chloride 1,000 mls @ 999 mls/hr 08/08/23 13:15 08/08/23 13:16 Ns IV 08/08/23 14:15 Not Given .Q1H1M MAISHA Sodium Chloride 500 mls @ 500 mls/hr 08/08/23 13:15 08/08/23 14:52 Ns IV 08/08/23 14:14 Infused .Q1H MAISHA Infusion Ondansetron HCl 4 mg 08/08/23 13:16 08/08/23 13:23 Ondansetron Hcl 4 Mg/2 Ml Vial IVPUSH 08/08/23 13:17 4 mg ONCE ONE Administration Medical Decision Making Lab Data 08/08/23 12:15 08/08/23 12:16 Labs: Lab Results 08/08/23 08/08/23 08/08/23 Range/Units 12:15 12:16 13:07 WBC 5.9 (4.8-10.8) X10*3/uL RBC 3.87 L (4.20-5.50) X10*6/uL Hgb 11.7 L (12.0-16.0) g/dl Hct 35.0 L (37.0-47.0) % MCV 90.4 (80.0-98.0) fL MCH 30.2 (27.0-33.0) pg MCHC 33.4 (31.0-35.0) g/dl RDW 13.3 (11.0-16.0) % Plt Count 301 D (160-400) X10*3/uL MPV 8.8 L (9.4-12.3) fL Immature Gran % (Auto) 0.3 (0.0-0.4) % Neut % (Auto) 62.6 (45-73) % Lymph % (Auto) 27.7 (20-40) % [place] % (Auto) 7.5 (2-11) % Eos % (Auto) 1.2 (0-4) % Baso % (Auto) 0.7 (0-2) % Lymph # (Auto) 1.6 (1.2-4.9) X10*3/uL [place] # (Auto) 0.4 (0.1-1.2) X10*3/uL Eos # (Auto) 0.1 (0.0-0.4) X10*3/uL Baso # (Auto) 0.0 (0.0-0.2) X10*3/uL Abs Immat Gran (auto) 0.02 (0.00-0.03) X10*3/uL Absolute Neuts (auto) 3.7 (2.0-8.3) x10*3/uL Absolute Nucleated RBC 0.000 (0.0-0.012) X10*3/uL Nucleated RBC % (auto) 0.0 (0.0-0.2) /100WBC PT 14.0 H (11.1-13.3) SEC INR 1.2 H (0.9-1.1) Sodium 140 (135-145) mmol/L Potassium 3.5 D (3.3-5.1) mmol/L Chloride 107 (96-108) mmol/L Carbon Dioxide 25 (22-29) mmol/L Anion Gap 12 (12-20) BUN 14 (9-16) mg/dL Creatinine 0.70 (0.5-1.4) mg/dL Estim Creat Clear Calc 56.8 Estimated GFR > 60 Random Glucose 97 (60-115) mg/dL Lactic Acid 1.4 (0.5-2.0) mmol/L Calcium 9.5 (8.4-10.2) mg/dL Magnesium 1.6 (1.6-2.6) mg/dL Total Bilirubin 0.5 (0.0-1.0) mg/dL Direct Bilirubin 0.2 (0.0-0.5) mg/dL AST 19 (5-31) U/L ALT 15 (0-31) U/L Alkaline Phosphatase 70 (39-117) U/L Total Protein 7.3 (6.5-8.0) g/dL Albumin 4.2 (3.5-5.0) g/dL Lipase 15 (8-78) U/L Urine Color Urine Appearance Urine pH (5.0-9.0) Ur Specific [place] (1.005-1.025) Urine Protein (Neg-Trace) mg/dL Urine Glucose (UA) (Negative) mg/dL Urine Ketones (Negative) mg/dL Urine Blood (Negative) Urine Nitrite (Negative) Ur Leukocyte Esterase (Negative) Urine RBC (0-2) /HPF Urine WBC (0-5) /HPF Ur Squamous Epith Cells (0-2) /HPF Urine Bacteria (None Seen) Hyaline Casts (0-2) /LPF Urine Yeast Influenza Type A (PCR) (Negative) Influenza Type B (PCR) (Negative) RSV RNA Qual (PCR) (Negative) SARS-CoV-2 RNA (RT-PCR) (Negative) 08/08/23 08/08/23 Range/Units 13:17 14:20 WBC (4.8-10.8) X10*3/uL RBC (4.20-5.50) X10*6/uL Hgb (12.0-16.0) g/dl Hct (37.0-47.0) % MCV (80.0-98.0) fL MCH (27.0-33.0) pg MCHC (31.0-35.0) g/dl RDW (11.0-16.0) % Plt Count (160-400) X10*3/uL MPV (9.4-12.3) fL Immature Gran % (Auto) (0.0-0.4) % Neut % (Auto) (45-73) % Lymph % (Auto) (20-40) % [place] % (Auto) (2-11) % Eos % (Auto) (0-4) % Baso % (Auto) (0-2) % Lymph # (Auto) (1.2-4.9) X10*3/uL [place] # (Auto) (0.1-1.2) X10*3/uL Eos # (Auto) (0.0-0.4) X10*3/uL Baso # (Auto) (0.0-0.2) X10*3/uL Abs Immat Gran (auto) (0.00-0.03) X10*3/uL Absolute Neuts (auto) (2.0-8.3) x10*3/uL Absolute Nucleated RBC (0.0-0.012) X10*3/uL Nucleated RBC % (auto) (0.0-0.2) /100WBC PT (11.1-13.3) SEC INR (0.9-1.1) Sodium (135-145) mmol/L Potassium (3.3-5.1) mmol/L Chloride (96-108) mmol/L Carbon Dioxide (22-29) mmol/L Anion Gap (12-20) BUN (9-16) mg/dL Creatinine (0.5-1.4) mg/dL Estim Creat Clear Calc Estimated GFR Random Glucose (60-115) mg/dL Lactic Acid (0.5-2.0) mmol/L Calcium (8.4-10.2) mg/dL Magnesium (1.6-2.6) mg/dL Total Bilirubin (0.0-1.0) mg/dL Direct Bilirubin (0.0-0.5) mg/dL AST (5-31) U/L ALT (0-31) U/L Alkaline Phosphatase (39-117) U/L Total Protein (6.5-8.0) g/dL Albumin (3.5-5.0) g/dL Lipase (8-78) U/L Urine Color [place] A Urine Appearance Cloudy Urine pH 5.5 (5.0-9.0) Ur Specific [place] 1.015 (1.005-1.025) Urine Protein 300 (3+) H (Neg-Trace) mg/dL Urine Glucose (UA) Negative (Negative) mg/dL Urine Ketones Negative (Negative) mg/dL Urine Blood Large (3+) H (Negative) Urine Nitrite Positive H (Negative) Ur Leukocyte Esterase Moderate (2+) H (Negative) Urine RBC >20 H (0-2) /HPF Urine WBC >50 H (0-5) /HPF Ur Squamous Epith Cells 0-2 (0-2) /HPF Urine Bacteria 4+ (None Seen) Hyaline Casts 0-2 (0-2) /LPF Urine Yeast Present Influenza Type A (PCR) NEGATIVE (Negative) Influenza Type B (PCR) NEGATIVE (Negative) RSV RNA Qual (PCR) NEGATIVE (Negative) SARS-CoV-2 RNA (RT-PCR) NEGATIVE (Negative) Discharge Plan Discharge Clinical Impression: Urinary tract infection Patient Disposition: Home, Self-Care Instructions: Urinary Tract Infection in Older Adults (ED) Prescriptions: No Action (DME) colostomy supplies See Rx Instructions .Route .MEDSUPPLY Qty: 1 11RF Rx Instructions: As directed albuterol sulfate 90 mcg/actuation HFA aerosol inhaler 2 puff inhalation Q6H PRN (Reason: bronchospasm) Qty: 18 1RF digoxin 125 mcg (0.125 mg) tablet 125 mcg PO DAILY Qty: 90 0RF Hold Instructions: Doctor's Order levetiracetam 750 mg tablet 750 mg PO BID 30 Days Qty: 60 3RF levothyroxine 50 mcg tablet 50 mcg PO DAILY Qty: 90 1RF loratadine 10 mg tablet 10 mg PO DAILY Qty: 90 1RF midodrine 5 mg tablet 5 mg PO TID Qty: 90 0RF simvastatin 40 mg tablet 40 mg PO BEDTIME Qty: 90 1RF amitriptyline 25 mg tablet 25 mg PO BEDTIME 30 Days Qty: 30 0RF Eliquis 5 mg tablet 5 mg PO BID 30 Days Qty: 60 3RF budesonide-formoterol [Symbicort] 80-4.5 mcg/actuation HFA aerosol inhaler 2 puff INHALATION BID Qty: 10.2 3RF cholestyramine (with sugar) 4 gram powder in packet 4 g PO BID 30 Days Qty: 60 3RF Rx Instructions: administer w/meal; avoid other meds within 1hr before or 4-6hr after dose dicyclomine 20 mg tablet 20 mg PO BID Qty: 60 2RF diphenhydramine HCl [Banophen] 25 mg tablet 50 mg PO BEDTIME Qty: 60 3RF duloxetine [Cymbalta] 60 mg capsule,delayed release(DR/EC) 60 mg PO DAILY Qty: 30 3RF oxybutynin chloride 5 mg tablet 5 mg PO BID Qty: 60 3RF CertaVite Senior 0.4 mg-300 mcg- 250 mcg tablet 1 tab PO DAILY Qty: 30 5RF pantoprazole 40 mg tablet,delayed release (DR/EC) 40 mg PO DAILY Qty: 30 3RF trazodone 50 mg tablet 50 mg PO BEDTIME Qty: 30 3RF thiamine HCl (vitamin B1) [Vitamin B-1] 100 mg tablet 100 mg PO DAILY Qty: 30 5RF (DME) colostomy bags Misc See Rx Instructions .Route Qty: 5 5RF Rx Instructions: As directed (DME) cane Device See Rx Instructions .Route Qty: 1 0RF Rx Instructions: As directed loperamide 2 mg capsule 2 mg PO NEEDED PRN (Reason: Diarrhea) magnesium oxide 400 mg (241.3 mg magnesium) tablet 1 tab PO BID oxycodone 5 mg tablet 5 mg PO BID PRN (Reason: pain (scale score 7-10)) Qty: 10 0RF Rx Instructions: Partial Fill upon patient request. potassium chloride 10 mEq Capsule, Extended Release 10 meq PO BID oxycodone 5 mg capsule 5 mg PO BID PRN (Reason: moderate pain (scale score 5-6)) Qty: 7 0RF Rx Instructions: Partial Fill upon patient request. lidocaine [Aspercreme (lidocaine)] 4 % adhesive patch,medicated 1 patch topical DAILY PRN (Reason: pain) Qty: 30 0RF Referrals: Aman Gagnon MD [Physician] - 08/10/23 Interventions: ED Discharge Assessment Last Done: 08/08/23 15:53 Discharge Date/Time: 08/08/23 15:53
[2023-08-08 11:57] VITALS: BP 117/70; PULSE 82; RESP 16; TEMP 36.9; O2SAT 94; BMI 22.1
--- NOTE | 2023-08-08 12:01 | ECG_ITS ---
Test Reason : HEMATURIA, DIZZY Blood Pressure : / mmHG Vent. Rate : 065 BPM Atrial Rate : 065 BPM P-R Int : 096 ms QRS Dur : 080 ms QT Int : 370 ms P-R-T Axes : 043 -41 066 degrees QTc Int : 384 ms Sinus rhythm with short MN Left axis deviation Abnormal ECG When compared with ECG of 26-JUL-2023 18:38, No significant change was found Heart rate has decreased Referred By: Nkechi Wilson Electronically Signed By:MAURA CARRION MD
[2023-08-08 12:20] LABS: MANUAL DIFF FLAG NO
--- NOTE | 2023-08-08 12:21 | PC.NURSE ---
Patient alert and oriented, arrived from home with complaints of urine in leg bag. Patient reports has had the catheter since her last admission to this hospital reports 07/03 left sided abdominal / liver pain. reports has noticed the blood in the bag for the last week and pain has gotten worse. Reports self administers iv abt through picc line everyday at 2:30 for UTI. Denies chest pain or sob, reports increased weakness and weight loss.
[2023-08-08 12:23] LABS: Basophils Percent Auto 0.7 % (0-2); Eosinophils Absolute Auto 0.1 X10*3/uL (0.0-0.4); Eosinophils Percent Auto 1.2 % (0-4); Hemoglobin 11.7 g/dl (12.0-16.0); Imm Gran Abs Auto 0.02 X10*3/uL (0.00-0.03); Imm Gran Pct Auto 0.3 % (0.0-0.4); Lymphocytes Absolute Auto 1.6 X10*3/uL (1.2-4.9); Lymphocytes Percent Auto 27.7 % (20-40); Mean Corpuscular HGB Conc 33.4 g/dl (31.0-35.0); Mean Corpuscular Hemoglobin 30.2 pg (27.0-33.0); Mean Corpuscular Volume 90.4 fL (80.0-98.0); Mean Platelet Volume 8.8 fL (9.4-12.3); Monocytes Absolute Auto 0.4 X10*3/uL (0.1-1.2); Monocytes Percent Auto 7.5 % (2-11); Neutrophils Absolute Auto 3.7 x10*3/uL (2.0-8.3); Neutrophils Percent Auto 62.6 % (45-73); Platelet Count 301 X10*3/uL (160-400); Red Blood Count 3.87 X10*6/uL (4.20-5.50); Red Cell Distribution Width 13.3 % (11.0-16.0); White Blood Count 5.9 X10*3/uL (4.8-10.8)
--- NOTE | 2023-08-08 12:26 | PC.NURSE ---
Patient with leg bag full of dark red urine, new bag placed for UA collection
[2023-08-08 12:28] LABS: INTERNATIONAL NORM RATIO 1.2 (0.9-1.1)
[2023-08-08 12:36] LABS: Alanine Aminotransferase 15 U/L (0-31); Albumin Level 4.2 g/dL (3.5-5.0); Alkaline Phosphatase 70 U/L (39-117); Anion Gap 12 (12-20); Aspartate Amino Transferase 19 U/L (5-31); Bilirubin Direct 0.2 mg/dL (0.0-0.5); Bilirubin Total 0.5 mg/dL (0.0-1.0); Blood Urea Nitrogen 14 mg/dL (9-16); Calcium 9.5 mg/dL (8.4-10.2); Carbon Dioxide 25 mmol/L (22-29); Chloride 107 mmol/L (96-108); Creatinine Clr Calc Pharmacy 56.8; Estimated Glomerular Filt Rate > 60; Glucose Random 97 mg/dL (60-115); Lipase 15 U/L (8-78); Magnesium 1.6 mg/dL (1.6-2.6); Potassium 3.5 mmol/L (3.3-5.1); Sodium 140 mmol/L (135-145); Total Protein 7.3 g/dL (6.5-8.0)
--- NOTE | 2023-08-08 13:01 | ED.FEMALEGU ---
HPI - Female Genitourinary General Chief complaint: Urogenital-Female Stated complaint: Bleeding in urine bag Time Seen by Provider: 08/08/23 12:22 History of Present Illness HPI Narrative: Patient is a 67-year-old female with a history of hypothyroid history of paroxysmal AFib history of SVT history of PE on Eliquis history of colon cancer history of neurogenic bladder with frequent self catheterization patient has a Degroot catheter in place was admitted to the hospital for a urinary tract infection patient noted to have bloody urine. Was given a outpatient IV course of gentamicin on discharge. Presented with having fever up to 101 at home. Generalized malaise weakness. Bloody urine again. Patient was discharged from the hospital on July 16 after hospitalization for UTI continued to have dysuria home then was admitted again on July 26. Discharged again on July 31. At the time of discharge patient was started on a course of IV gentamicin. Related Data Home Medications Medication Instructions Recorded Confirmed loperamide 2 mg capsule 2 mg PO NEEDED PRN Diarrhea 01/07/22 07/26/23 magnesium oxide 400 mg (241.3 mg 1 tab PO BID 01/07/22 07/26/23 magnesium) tablet potassium chloride 10 mEq 10 meq PO BID 07/14/23 07/26/23 capsule,extended release Previous Rx's Medication Instructions Recorded colostomy supplies #1 ea 04/16/23 lidocaine 4 % topical patch 1 patch topical DAILY PRN pain #30 07/05/23 (Aspercreme (lidocaine)) ea oxycodone 5 mg capsule 5 mg PO BID PRN moderate pain 07/19/23 (scale score 5-6) #7 caps Symbicort 80 mcg-4.5 mcg/actuation 2 puff inhalation BID #10.2 grams 07/20/23 HFA aerosol inhaler (budesonide-formoterol) albuterol sulfate 90 mcg/actuation 2 puff inhalation Q6H PRN 07/20/23 aerosol inhaler bronchospasm #18 grams amitriptyline 25 mg tablet 25 mg PO BEDTIME 30 days #30 tabs 07/20/23 apixaban 5 mg tablet (Eliquis) 5 mg PO BID 30 days #60 tabs 07/20/23 cholestyramine (with sugar) 4 gram 4 g PO BID 30 days #60 ea 07/20/23 powder for susp in a packet dicyclomine 20 mg tablet 20 mg PO BID #60 tabs 07/20/23 digoxin 125 mcg (0.125 mg) tablet 125 mcg PO DAILY #90 tabs 07/20/23 diphenhydramine HCl 25 mg tablet 50 mg (2 x 25 mg) PO BEDTIME #60 07/20/23 (Banophen) tabs duloxetine 60 mg capsule,delayed 60 mg PO DAILY #30 caps 07/20/23 release (Cymbalta) levetiracetam 750 mg tablet 750 mg PO BID 30 days #60 tabs 07/20/23 levothyroxine 50 mcg tablet 50 mcg PO DAILY #90 tabs 07/20/23 loratadine 10 mg tablet 10 mg PO DAILY #90 tabs 07/20/23 midodrine 5 mg tablet 5 mg PO TID #90 tabs 07/20/23 fujpcqzp-oxj-gotre acid 0.4 1 tab PO DAILY #30 tabs 07/20/23 mg-lycopene 300 mcg-lutein 250 mcg tablet (CertaVite Senior) oxybutynin chloride 5 mg tablet 5 mg PO BID #60 tabs 07/20/23 pantoprazole 40 mg tablet,delayed 40 mg PO DAILY #30 tabs 07/20/23 release simvastatin 40 mg tablet 40 mg PO BEDTIME #90 tabs 07/20/23 thiamine HCl (vitamin B1) 100 mg 100 mg PO DAILY #30 tabs 07/20/23 tablet (Vitamin B-1) trazodone 50 mg tablet 50 mg PO BEDTIME #30 tabs 07/20/23 colostomy bags #5 ea 07/24/23 oxycodone 5 mg tablet 5 mg PO BID PRN pain (scale score 07/31/23 7-10) #10 tabs cane #1 ea 08/02/23 Allergies Allergy/AdvReac Type Severity Reaction Status Date / Time erythromycin base Allergy Severe Anaphylaxis Verified 07/13/23 10:05 [ERYTHROMYCIN BASE] levofloxacin [From Levaquin] Allergy Severe Anaphylaxis Verified 07/13/23 10:05 Penicillins [PCN] Allergy Severe Anaphylaxis Verified 07/13/23 10:05 seafood Allergy Severe Anaphylaxis Verified 07/13/23 10:05 Sulfa (Sulfonamide Allergy Severe Anaphylaxis, Verified 07/13/23 10:05 Antibiotics) vomiting [SULFA (SULFONAMIDE ANTIBIOTICS)] Tetracyclines Allergy Severe Anaphylaxis Verified 07/13/23 10:05 divalproex sodium [Depakote] Allergy Unknown altered Verified 07/13/23 10:05 mental status gluten [GLUTEN] Allergy Unknown BLOATING,RA Verified 07/13/23 10:05 SH rice Allergy Unknown Verified 07/13/23 10:05 Review of Systems Review of Systems: Positive fever positive lower abdominal pain Yes all other systems are reviewed and are negative [facility] Past Medical History Medical History History of pulmonary embolus (PE) Allergy to multiple antibiotics Acute suprapubic pain Neurogenic bladder, NOS COVID-19 Primary cancer of foot Pulmonary embolism Degenerative cervical disc Lumbar disc disease Celiac disease Pure hypercholesterolemia Epilepsy Hypothyroidism COPD (chronic obstructive pulmonary disease) Pseudoseizure Conversion disorder Colon cancer Paroxysmal A-fib Allergy to multiple drugs Deep vein thrombosis Surgical History History of arthroplasty History of hysterectomy (~1979) Hx of cholecystectomy S/P IVC filter History of partial surgical removal of colon History of partial gastrectomy History of colectomy History of colostomy reversal History of bladder surgery History of sinus surgery History of facial surgery History of colonoscopy Family History Family History Mother CAD (coronary artery disease) Other Mental health disorder Social History Social History Household Members: None Household Members Other:: 1 Housing: Apartment Do you presently have visiting nurse or other home services: Yes Alcohol intake: former Patient Tobacco Use Status: Never used Tobacco Smoked in Last 30 Days: No e-Cigarette/Vaping Use: Never Used Second Hand Smoke Exposure: Yes Use of substances other than those prescribed or required for medical reasons: No Advance Directives: Yes Advance Directives on File: Yes Advance Directives Date on File: 08/08/23 service: No Current occupational status: disabled Cognitive needs: Yes (cane) Hearing needs: No Vision needs: Yes (Glasses) Physical Exam Vital Signs: Vital Signs: Last Vital Signs Temp 98.5 F 08/08/23 13:36 Pulse 89 08/08/23 13:36 Resp 16 08/08/23 13:36 BP 119/72 08/08/23 13:36 Pulse Ox 96 11/15/23 13:36 O2 Del Method Room Air 08/08/23 13:36 BMI result Body Mass Index 22.1 Appearance: Alert. Oriented X3. No acute distress. Eyes: Pupils equal, round and reactive to light. ENT: Pharynx normal. Neck: Normal inspection. Neck supple. No lymph nodes noted. No crepitus CVS: Normal heart rate and rhythm. Pulses normal. Normal S1 and S2 Respiratory: No respiratory distress. Breath sounds normal. No Wheezing. No rales Abdomen: Soft and nontender. No rigidity. No distention. good BS x4 Skin: Skin warm and dry. Normal skin color. Normal skin turgor. Extremities: No lower extremity edema. Neurovascular intact to all extremities. No Lacerations. No Rash Neuro: Oriented X 3. No motor deficit. No sensory deficit. Moving all extermities. No slurred speech Medications Administered Discontinued Medications Generic Name Dose Route Start Last Admin Trade Name Freq PRN Reason Stop Dose Admin Hydromorphone HCl 0.5 mg 08/08/23 13:16 08/08/23 13:23 Hydromorphone Hcl 0.5 Mg/0.5 Ml Syringe IVPUSH 08/08/23 13:17 0.5 mg ONCE ONE Administration Protocol Sodium Chloride 1,000 mls @ 999 mls/hr 08/08/23 13:15 08/08/23 13:16 Ns IV 08/08/23 14:15 Not Given .Q1H1M MAISHA Sodium Chloride 500 mls @ 500 mls/hr 08/08/23 13:15 08/08/23 14:52 Ns IV 08/08/23 14:14 Infused .Q1H MAISHA Infusion Ondansetron HCl 4 mg 08/08/23 13:16 08/08/23 13:23 Ondansetron Hcl 4 Mg/2 Ml Vial IVPUSH 08/08/23 13:17 4 mg ONCE ONE Administration Medical Decision Making Medical Decision Making [facility] Narrative: Patient has a history of blood in the urine. Has his history of urinary tract infection. Culture came back positive for ESBL. Sensitive to gentamicin and ertapenem. Patient has multiple allergies. Was recently discharged home on the 7th on gentamicin. Unfortunately patient continued to have fever the since yesterday. Has bloody urine has low abdominal pain. Patient's urine again appears to be infected. Question if this is secondary to colonization. There is no evidence for sepsis. Patient's white count is normal. Patient's lactate is 1.4 there is no evidence for severe infection. There is no fever here in the emergency department. Patient's case discussed with Urology Dr. Zavala, felt comfortable with discharge continue current management. Differential Diagnosis Differential Diagnoses: The differential diagnosis associated with the presentation includes Urinary tract infection, hematuria, urinary retention Admission/Observation Consideration of admission/observation: Escalation of care including admission/observation considered No need for admission after discussion with Urology and hospitalist Consult Healthcare Provider Management of the patient was discussed with: Party Plan Sales Director (Urology) Lab Data MDM Lab Attestation statement: I reviewed the patient's lab results. 08/08/23 12:15 08/08/23 12:16 Labs: Lab Results 08/08/23 08/08/23 08/08/23 Range/Units 12:15 12:16 13:07 WBC 5.9 (4.8-10.8) X10*3/uL RBC 3.87 L (4.20-5.50) X10*6/uL Hgb 11.7 L (12.0-16.0) g/dl Hct 35.0 L (37.0-47.0) % MCV 90.4 (80.0-98.0) fL MCH 30.2 (27.0-33.0) pg MCHC 33.4 (31.0-35.0) g/dl RDW 13.3 (11.0-16.0) % Plt Count 301 D (160-400) X10*3/uL MPV 8.8 L (9.4-12.3) fL Immature Gran % (Auto) 0.3 (0.0-0.4) % Neut % (Auto) 62.6 (45-73) % Lymph % (Auto) 27.7 (20-40) % [facility] % (Auto) 7.5 (2-11) % Eos % (Auto) 1.2 (0-4) % Baso % (Auto) 0.7 (0-2) % Lymph # (Auto) 1.6 (1.2-4.9) X10*3/uL [facility] # (Auto) 0.4 (0.1-1.2) X10*3/uL Eos # (Auto) 0.1 (0.0-0.4) X10*3/uL Baso # (Auto) 0.0 (0.0-0.2) X10*3/uL Abs Immat Gran (auto) 0.02 (0.00-0.03) X10*3/uL Absolute Neuts (auto) 3.7 (2.0-8.3) x10*3/uL Absolute Nucleated RBC 0.000 (0.0-0.012) X10*3/uL Nucleated RBC % (auto) 0.0 (0.0-0.2) /100WBC PT 14.0 H (11.1-13.3) SEC INR 1.2 H (0.9-1.1) Sodium 140 (135-145) mmol/L Potassium 3.5 D (3.3-5.1) mmol/L Chloride 107 (96-108) mmol/L Carbon Dioxide 25 (22-29) mmol/L Anion Gap 12 (12-20) BUN 14 (9-16) mg/dL Creatinine 0.70 (0.5-1.4) mg/dL Estim Creat Clear Calc 56.8 Estimated GFR > 60 Random Glucose 97 (60-115) mg/dL Lactic Acid 1.4 (0.5-2.0) mmol/L Calcium 9.5 (8.4-10.2) mg/dL Magnesium 1.6 (1.6-2.6) mg/dL Total Bilirubin 0.5 (0.0-1.0) mg/dL Direct Bilirubin 0.2 (0.0-0.5) mg/dL AST 19 (5-31) U/L ALT 15 (0-31) U/L Alkaline Phosphatase 70 (39-117) U/L Total Protein 7.3 (6.5-8.0) g/dL Albumin 4.2 (3.5-5.0) g/dL Lipase 15 (8-78) U/L Urine Color Urine Appearance Urine pH (5.0-9.0) Ur Specific [place] (1.005-1.025) Urine Protein (Neg-Trace) mg/dL Urine Glucose (UA) (Negative) mg/dL Urine Ketones (Negative) mg/dL Urine Blood (Negative) Urine Nitrite (Negative) Ur Leukocyte Esterase (Negative) Urine RBC (0-2) /HPF Urine WBC (0-5) /HPF Ur Squamous Epith Cells (0-2) /HPF Urine Bacteria (None Seen) Hyaline Casts (0-2) /LPF Urine Yeast Influenza Type A (PCR) (Negative) Influenza Type B (PCR) (Negative) RSV RNA Qual (PCR) (Negative) SARS-CoV-2 RNA (RT-PCR) (Negative) 08/08/23 08/08/23 Range/Units 13:17 14:20 WBC (4.8-10.8) X10*3/uL RBC (4.20-5.50) X10*6/uL Hgb (12.0-16.0) g/dl Hct (37.0-47.0) % MCV (80.0-98.0) fL MCH (27.0-33.0) pg MCHC (31.0-35.0) g/dl RDW (11.0-16.0) % Plt Count (160-400) X10*3/uL MPV (9.4-12.3) fL Immature Gran % (Auto) (0.0-0.4) % Neut % (Auto) (45-73) % Lymph % (Auto) (20-40) % [facility] % (Auto) (2-11) % Eos % (Auto) (0-4) % Baso % (Auto) (0-2) % Lymph # (Auto) (1.2-4.9) X10*3/uL [facility] # (Auto) (0.1-1.2) X10*3/uL Eos # (Auto) (0.0-0.4) X10*3/uL Baso # (Auto) (0.0-0.2) X10*3/uL Abs Immat Gran (auto) (0.00-0.03) X10*3/uL Absolute Neuts (auto) (2.0-8.3) x10*3/uL Absolute Nucleated RBC (0.0-0.012) X10*3/uL Nucleated RBC % (auto) (0.0-0.2) /100WBC PT (11.1-13.3) SEC INR (0.9-1.1) Sodium (135-145) mmol/L Potassium (3.3-5.1) mmol/L Chloride (96-108) mmol/L Carbon Dioxide (22-29) mmol/L Anion Gap (12-20) BUN (9-16) mg/dL Creatinine (0.5-1.4) mg/dL Estim Creat Clear Calc Estimated GFR Random Glucose (60-115) mg/dL Lactic Acid (0.5-2.0) mmol/L Calcium (8.4-10.2) mg/dL Magnesium (1.6-2.6) mg/dL Total Bilirubin (0.0-1.0) mg/dL Direct Bilirubin (0.0-0.5) mg/dL AST (5-31) U/L ALT (0-31) U/L Alkaline Phosphatase (39-117) U/L Total Protein (6.5-8.0) g/dL Albumin (3.5-5.0) g/dL Lipase (8-78) U/L Urine Color [place] A Urine Appearance Cloudy Urine pH 5.5 (5.0-9.0) Ur Specific [place] 1.015 (1.005-1.025) Urine Protein 300 (3+) H (Neg-Trace) mg/dL Urine Glucose (UA) Negative (Negative) mg/dL Urine Ketones Negative (Negative) mg/dL Urine Blood Large (3+) H (Negative) Urine Nitrite Positive H (Negative) Ur Leukocyte Esterase Moderate (2+) H (Negative) Urine RBC >20 H (0-2) /HPF Urine WBC >50 H (0-5) /HPF Ur Squamous Epith Cells 0-2 (0-2) /HPF Urine Bacteria 4+ (None Seen) Hyaline Casts 0-2 (0-2) /LPF Urine Yeast Present Influenza Type A (PCR) NEGATIVE (Negative) Influenza Type B (PCR) NEGATIVE (Negative) RSV RNA Qual (PCR) NEGATIVE (Negative) SARS-CoV-2 RNA (RT-PCR) NEGATIVE (Negative) External Record Review External record reviewed: Inpatient record Previous discharge record reviewed Discharge Plan Discharge Clinical Impression: Urinary tract infection Patient Disposition: Home, Self-Care Instructions: Urinary Tract Infection in Older Adults (ED) Prescriptions: No Action (DME) colostomy supplies See Rx Instructions .Route .MEDSUPPLY Qty: 1 11RF Rx Instructions: As directed albuterol sulfate 90 mcg/actuation HFA aerosol inhaler 2 puff inhalation Q6H PRN (Reason: bronchospasm) Qty: 18 1RF digoxin 125 mcg (0.125 mg) tablet 125 mcg PO DAILY Qty: 90 0RF Hold Instructions: Doctor's Order levetiracetam 750 mg tablet 750 mg PO BID 30 Days Qty: 60 3RF levothyroxine 50 mcg tablet 50 mcg PO DAILY Qty: 90 1RF loratadine 10 mg tablet 10 mg PO DAILY Qty: 90 1RF midodrine 5 mg tablet 5 mg PO TID Qty: 90 0RF simvastatin 40 mg tablet 40 mg PO BEDTIME Qty: 90 1RF amitriptyline 25 mg tablet 25 mg PO BEDTIME 30 Days Qty: 30 0RF Eliquis 5 mg tablet 5 mg PO BID 30 Days Qty: 60 3RF budesonide-formoterol [Symbicort] 80-4.5 mcg/actuation HFA aerosol inhaler 2 puff INHALATION BID Qty: 10.2 3RF cholestyramine (with sugar) 4 gram powder in packet 4 g PO BID 30 Days Qty: 60 3RF Rx Instructions: administer w/meal; avoid other meds within 1hr before or 4-6hr after dose dicyclomine 20 mg tablet 20 mg PO BID Qty: 60 2RF diphenhydramine HCl [Banophen] 25 mg tablet 50 mg PO BEDTIME Qty: 60 3RF duloxetine [Cymbalta] 60 mg capsule,delayed release(DR/EC) 60 mg PO DAILY Qty: 30 3RF oxybutynin chloride 5 mg tablet 5 mg PO BID Qty: 60 3RF CertaVite Senior 0.4 mg-300 mcg- 250 mcg tablet 1 tab PO DAILY Qty: 30 5RF pantoprazole 40 mg tablet,delayed release (DR/EC) 40 mg PO DAILY Qty: 30 3RF trazodone 50 mg tablet 50 mg PO BEDTIME Qty: 30 3RF thiamine HCl (vitamin B1) [Vitamin B-1] 100 mg tablet 100 mg PO DAILY Qty: 30 5RF (DME) colostomy bags Misc See Rx Instructions .Route Qty: 5 5RF Rx Instructions: As directed (DME) cane Device See Rx Instructions .Route Qty: 1 0RF Rx Instructions: As directed loperamide 2 mg capsule 2 mg PO NEEDED PRN (Reason: Diarrhea) magnesium oxide 400 mg (241.3 mg magnesium) tablet 1 tab PO BID oxycodone 5 mg tablet 5 mg PO BID PRN (Reason: pain (scale score 7-10)) Qty: 10 0RF Rx Instructions: Partial Fill upon patient request. potassium chloride 10 mEq Capsule, Extended Release 10 meq PO BID oxycodone 5 mg capsule 5 mg PO BID PRN (Reason: moderate pain (scale score 5-6)) Qty: 7 0RF Rx Instructions: Partial Fill upon patient request. lidocaine [Aspercreme (lidocaine)] 4 % adhesive patch,medicated 1 patch topical DAILY PRN (Reason: pain) Qty: 30 0RF Referrals: Aman Gagnon MD [Physician] - 08/10/23
--- NOTE | 2023-08-08 13:12 | PC.NURSE ---
Bladder scanned for 7mls, x1 set of blood cultures obtained provider aware patient is difficult to obtain blood from okay with x1 set of cultures being obtained
[2023-08-08] MEDS: 0.9 % Sodium Chloride 500 ML IV (13:17)
[2023-08-08] MEDS: HYDROmorphone HCl 0.5 MG/0.5 ML SYRINGE IVPUSH (13:23)
[2023-08-08] MEDS: ondansetron HCL 4 MG/2 ML VIAL IVPUSH (13:23)
[2023-08-08 13:25] LABS: Lactic Acid 1.4 mmol/L (0.5-2.0)
[2023-08-08 13:36] VITALS: BP 119/72; PULSE 89; RESP 16; TEMP 36.9; O2SAT 96
[2023-08-08 14:00] LABS: Influenza A PCR NEGATIVE (Negative); Influenza B PCR NEGATIVE (Negative); Resp Syncy Virus RNA Qual PCR NEGATIVE (Negative); SARS COV2 PCR INHOUSE NEGATIVE (Negative)
[2023-08-08 14:35] LABS: Appearance Urine Cloudy; Color Urine Orange; Glucose Urine UA Negative (Negative); Leukocyte Esterase Urine Moderate (2+) (Negative); Nitrite Urine Positive (Negative); PH 5.5 (5.0-9.0); Specific Gravity - Urine 1.015 (1.005-1.025); UMIC TRIGGER UACC YES; Urine Blood Large (3+) (Negative); Urine Ketones Negative (Negative); Urine Protein 300 (3+) mg/dL (Neg-Trace)
[2023-08-08 14:46] LABS: Bacteria Urine 4+ (None Seen); Hyaline Casts Urine 0-2 /LPF (0-2); RBC Urine >20 /HPF (0-2); Squamous Epithelial Cell Urine 0-2 /HPF (0-2); UACC Culture Trigger YES; WBC Urine >50 /HPF (0-5)
--- NOTE | 2023-08-08 15:52 | PC.NURSE ---
Patient requesting to speak to Dr. Rdz prior to discharge. Provider into see patient to answer questions. Discharge plan reviewed with patient, vna aware that patient is being discharged home.
--- NOTE | 2023-08-08 15:54 | PC.NURSE ---
Patient provided with new leg bag prior to discharge, patient declining leg bag to be placed, left with tyson bag in place
== END 2023-08-08 15:53 | disposition home or self-care (01) ==
PROVIDERS: Physician Assistant; Emergency Provider Emergency Medicine Emergency Medical Services; PCP Internal Medicine
DX: N39.0 Urinary tract infection, site not specified (principal); R31.9 Hematuria, unspecified; R50.9 Fever, unspecified; R30.0 Dysuria; R42 Dizziness and giddiness; I48.0 Paroxysmal atrial fibrillation; Z20.822 Contact with and (suspected) exposure to COVID-19; Z20.828 Contact with and (suspected) exposure to other viral communicable diseases; Z86.711 Personal history of pulmonary embolism; Z79.01 Long term (current) use of 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; Z79.899 Other long term (current) drug therapy
CPT/HCPCS: 0241U; 36415; 80048; 80076; 81001; 83605; 83690; 83735; 85025; 85610; 87040; 87086; 93005; 96361; 96374; 96375; 99284; 99285; J1170; J2405

== ENCOUNTER 2023-09-19 12:42 | Outpatient (AMB) | payer MEDICARE, MEDICAID, SELFPAY ==
[2023-09-19 12:57] VITALS: BP 98/58; PULSE 77; O2SAT 98; BMI 24.6
--- NOTE | 2023-09-19 12:57 | MHC.PC.OV ---
Vital Signs 09/19/23 12:57 Height 5 ft Weight 57.153 kg BMI 24.6 BP 98/58 L Blood Pressure Location Lt brachial Position Sitting Pulse 77 Pulse Source Pulse Oximeter Pulse Oximetry (%) 98 Oxygen Delivery Method Room Air Intake Visit Reasons: [facility] 08/21 UTI/bleeding Ocular Pathologist Required: No Revenue Enforcement Collection Agent: Not Required per policy Accompanied by: Self / Same As Patient Allergies erythromycin base [ERYTHROMYCIN BASE] Allergy (Severe, Verified 09/19/23 12:58) Anaphylaxis levofloxacin [From Levaquin] Allergy (Severe, Verified 09/19/23 12:58) Anaphylaxis Penicillins [PCN] Allergy (Severe, Verified 09/19/23 12:58) Anaphylaxis seafood Allergy (Severe, Verified 09/19/23 12:58) Anaphylaxis Sulfa (Sulfonamide Antibiotics) [SULFA (SULFONAMIDE ANTIBIOTICS)] Allergy (Severe, Verified 09/19/23 12:58) Anaphylaxis, vomiting Tetracyclines Allergy (Severe, Verified 09/19/23 12:58) Anaphylaxis divalproex sodium [Depakote] Allergy (Unknown, Verified 09/19/23 12:58) altered mental status gluten [GLUTEN] Allergy (Unknown, Verified 09/19/23 12:58) BLOATING,RASH rice Allergy (Verified 09/19/23 12:58) Unknown Tobacco use date assessed: 07/05/23 Fall risk assessment: No Falls in past year Last assessed Fall Risk: 09/19/23 Dental Screening Dental Screen Date: 09/19/23 Did you have a dental visit in the last 12 months?: No Did you have a dental problem in the last 6 months where you did not have access to dental care?: No Was dental information given to patient?: Patient has dentist HPI HPI Comments History of Present Illness Details 67-year-old female with history of COPD, coronary artery disease s/p mi, DVT on Eliquis, depression, GERD, recurrent UTIs in the setting of neurogenic bladder requiring self colonization, history colon cancer s/p colostomy presents to the office for post hospital discharge follow-up. She was admitted to [facility] from 09/10-09/12 due to recurrent UTI/hematuria s/p Degroot catheter, recommended by [facility] with whom she follows for cystoscopy and possible bladder biopsy. In ED, CT abdomen/pelvis did not reveal any evidence of obstruction but showed significant distention of the urinary bladder. UA was positive and she is thought to be mostly colonized with E coli and E coli ESBL requiring multiple admissions. She was treated with ceftriaxone and cystoscopy was performed without any evidence of mucosal tumor/neoplasm but did show area of mild inflammation involving the posterior and [place] urothelium which was biopsied. Pathology report reported small intestine type mucosa with reactive changes. Following cystoscopy, urology did not recommend further antibiotic treatment and antibiotics were discontinued. The patient states she does have an appointment with Urology tomorrow at 14:00. She does have neurogenic bladder and requires self catheterization throughout the day. The patient also feels she is malnourished s/p colostomy. She notes watery output in her ostomy bag. She denies any fevers, chills, abdominal pain. No foul odor. She feels she needs a port for TPN/PPN. Does not currently follow [facility] gastroenterology. She is also reporting lower back pain radiating into the left lower extremity worse with movement/ambulation. She has been doing home exercises as advised by Physical therapy foot finds the pain very limiting. No weakness/paresthesias. No saddle anesthesia. [facility] Medical History History of pulmonary embolus (PE) Allergy to multiple antibiotics Acute suprapubic pain Neurogenic bladder, NOS COVID-19 Primary cancer of foot Pulmonary embolism Degenerative cervical disc Lumbar disc disease Celiac disease Pure hypercholesterolemia Epilepsy Hypothyroidism COPD (chronic obstructive pulmonary disease) Pseudoseizure Conversion disorder Colon cancer Paroxysmal A-fib Allergy to multiple drugs Deep vein thrombosis Surgical History History of arthroplasty History of hysterectomy (~1979) Hx of cholecystectomy S/P IVC filter History of partial surgical removal of colon History of partial gastrectomy History of colectomy History of colostomy reversal History of bladder surgery History of sinus surgery History of facial surgery History of colonoscopy Family History Mother CAD (coronary artery disease) Other Mental health disorder Social History Household Members: None Household Members Other:: 1 Housing: Apartment Do you presently have visiting nurse or other home services: Yes Alcohol intake: former Patient Tobacco Use Status: Never used Tobacco e-Cigarette/Vaping Use: Never Used Second Hand Smoke Exposure: Yes Advance Directives Date on File: 08/08/23 service: No Current occupational status: disabled Cognitive needs: Yes (cane) Hearing needs: No Vision needs: Yes (Glasses) Questionnaire Thrive Questionnaire Date Thrive assessed: 07/27/23 EARNESTINE-7 AMB Questionnaire EARNESTINE-7 Date EARNESTINE - 7 assessed: 07/05/23 Source: Developed by Drs. Ranjit Valdovinos, Anila Baldwin, Saud Allison and colleagues, with an educational lionel from [employer]. Review of Systems Const All systems reviewed & are unremarkable except as noted in HPI and below Physical exam (Primary Care) Vital Signs: Last Vital Signs Pulse 77 09/19/23 12:57 BP 98/58 L 09/19/23 12:57 Pulse Ox 98 09/19/23 12:57 Oxygen Delivery Method Room Air 09/19/23 12:57 BMI result Body Mass Index 24.6 Tobacco/Smoking Status: Tobacco use Status Tobacco use date assessed 07/05/23 09/19/23 12:58 Patient Tobacco Use Status Never used Tobacco 09/19/23 12:58 e-Cigarette/Vaping Use Never Used 09/19/23 12:58 Thrive Assessment: Date of Thrive Assessment Date Thrive assessed 07/27/23 09/19/23 12:58 Const Other: Constitutional - Awake and Alert, No apparent distress Eyes - PERRLA, EOMI Cardiovascular - S1S2, RRR, No edema Respiratory - Normal lung expansion, Normal respiratory effort, No respiratory distress, CTA bilaterally Gastrointestinal - ostomy in place with watery brown output, no hematochezia. NT / ND; +BS; No rebound or guarding Extremities - no calf tenderness bilaterally, no swelling Musculoskeletal - no midline low back ttp, left sided paraspinal tenderness into the SI joint. Positive left sided straight leg raise Skin - Warm/Dry Neurological - Alert & oriented x3, 5/5 strength BLE, 2+ symmetric patellar reflexes Psychological - Appropriate affect Results Reviewed Results Reviewed: cbc, bmp, ua (no uc sent), cystoscopy report, bladder biopsy path report, H&p, discharge summary Assessment and Plan Assessment & Plan (1) Recurrent UTI: Code(s): N39.0 - Urinary tract infection, site not specified Plan: Likely colonized with ecoli/ecoli esbl. No further abx treatment per urology. Consider with urinary self-catherization due to neurogenic bladder using sterile technique to prevent recurrent UTI. (2) Neurogenic bladder: Comment: performs SC Code(s): N31.9 - Neuromuscular dysfunction of bladder, unspecified Plan: Cystoscopy report reviewed without evidence of mucosal tumor/neoplasm. Reviewed pathology reports and recommending follow-up with urology as scheduled tomorrow. Continue with self catheterization using sterile technique to prevent recurrent UTI. (3) Malabsorption: Code(s): K90.9 - Intestinal malabsorption, unspecified Plan: Patient with ostomy in place s/p colostomy due to colon cancer. Reports she has lost about 30 lb and does not feel she is absorbing food. Notes watery output in ostomy though no fever, chills, abdominal pain. No bloody output. Patient is not underweight at this time but has lost significant weight. Will refer to GI for further evaluation and management. May need to be considered for port for TPN/PPN pending further evaluation. (4) Change in bowel habit: Code(s): R19.4 - Change in bowel habit Plan: See above. (5) Lumbar radiculopathy: Code(s): M54.16 - Radiculopathy, lumbar region Plan: Prednisone taper prescribed for lumbar radiculopathy. Counseled on the use and side effects of medication. She is also strongly encouraged to continue working with physical therapy and with home exercises. Encouraged movement. No symptoms concerning for an acute cauda equina syndrome. May need consideration for MRI lumbar spine with PCP if no improvements with physical therapy. Orders: Referrals Gastroenterology Referral K90.9 - Intestinal malabsorption, unspecified Medications: New prednisone Take 40mg daily x 3 days, then 30mg daily x 3 days, then 20mg daily x 3 days, then 10mg daily x 3 days 10 mg PO DIRECTED 30 tabs 0RF Coding Level of Care Code Est Pt Level 5 (27717) Diagnoses Recurrent UTI N39.0 Neurogenic bladder N31.9 Malabsorption K90.9 Change in bowel habit R19.4 Lumbar radiculopathy M54.16 Time Spent (min) 45 Comment time spent reviewing as above, with pt, and on documentation
== END 2023-09-19 14:28 | disposition home or self-care (01) ==
PROVIDERS: PCP Internal Medicine; Visit Provider Physician Assistant
DX: N39.0 Urinary tract infection, site not specified (principal); N31.9 Neuromuscular dysfunction of bladder, unspecified; K90.9 Intestinal malabsorption, unspecified; R19.4 Change in bowel habit; M54.16 Radiculopathy, lumbar region
CPT/HCPCS: 99215

== ENCOUNTER 2023-10-08 13:32 | Outpatient (AMB) | payer MEDICARE, MEDICAID, SELFPAY ==
--- NOTE | 2023-10-08 15:11 | MHC.PC.OV ---
Vital Signs 10/08/23 15:13 Height 5 ft Weight 130 lb BMI 25.4 BP 98/58 L Blood Pressure Location Lt brachial Position Sitting Pulse 68 Pulse Source Pulse Oximeter Pulse Oximetry (%) 89 L Oxygen Delivery Method Room Air Intake Visit Reasons: HDF ~ Post hospital discharge FU Intake Note: Patient is here for hospital discharge follow up. Patient was discharged from [facility] on ? [facility] on to 10/01/23 . Request for port place for access for bladder removal surgery. Review Assistant Required: No Explosive Ordnance Handler: Not Required per policy Accompanied by: Self / Same As Patient Allergies erythromycin base [ERYTHROMYCIN BASE] Allergy (Severe, Verified 10/08/23 17:23) Anaphylaxis levofloxacin [From Levaquin] Allergy (Severe, Verified 10/08/23 17:23) Anaphylaxis Penicillins [PCN] Allergy (Severe, Verified 10/08/23 17:23) Anaphylaxis seafood Allergy (Severe, Verified 10/08/23 17:23) Anaphylaxis Sulfa (Sulfonamide Antibiotics) [SULFA (SULFONAMIDE ANTIBIOTICS)] Allergy (Severe, Verified 10/08/23 17:23) Anaphylaxis, vomiting Tetracyclines Allergy (Severe, Verified 10/08/23 17:23) Anaphylaxis divalproex sodium [Depakote] Allergy (Unknown, Verified 10/08/23 17:23) altered mental status gluten [GLUTEN] Allergy (Unknown, Verified 10/08/23 17:23) BLOATING,RASH rice Allergy (Verified 10/08/23 17:23) Unknown Medication List - Last Reconciled 10/08/23 by Bob Camp MD albuterol sulfate 90 mcg/actuation 2 puffs inhalation Q6H PRN amitriptyline 25 mg PO BEDTIME 30 days apixaban (Eliquis) 5 mg PO BID 30 days cane As directed cholestyramine (with sugar) 4 gram 4 grams PO BID 30 days colostomy bags As directed [colostomy supplies As directed] dicyclomine 20 mg PO BID duloxetine (Cymbalta) 60 mg PO DAILY levetiracetam 750 mg PO BID 30 days levothyroxine 50 mcg PO DAILY loperamide 2 mg PO NEEDED PRN loratadine 10 mg PO DAILY magnesium oxide 1 tab PO BID midodrine 5 mg PO TID iioeemih-xyv-IX-lycopen-lutein 0.4 mg-300 mcg- 250 mcg (CertaVite Senior) 1 tab PO DAILY oxybutynin chloride 5 mg PO BID pantoprazole 40 mg PO DAILY potassium chloride ER 10 mEq PO BID simvastatin 40 mg PO BEDTIME Symbicort 80-4.5 mcg/actuation (budesonide-formoterol) 2 puffs inhalation BID NS thiamine HCl (vitamin B1) (Vitamin B-1) 100 mg PO DAILY trazodone 50 mg PO BEDTIME Tobacco use date assessed: 10/08/23 Fall risk assessment: 2 + Falls in past year Last assessed Fall Risk: 10/08/23 Dental Screening Dental Screen Date: 10/08/23 Did you have a dental visit in the last 12 months?: No Did you have a dental problem in the last 6 months where you did not have access to dental care?: No Was dental information given to patient?: No HPI HDF ~ Post hospital discharge FU HPI Details 68-year-old female presents to the office to discuss her medical condition. I am seeing her after a long gap. Patient reports that she has been admitted to the hospital a few times last year and now has frequent urinary tract infections. She now sees a urologist who would like her to have a surgical procedure in [place]. She has a PICC line and according to the patient, her urologist wants the primary care provider to schedule a port. Patient has a VNA who is helping with her care. [facility] Medical History History of pulmonary embolus (PE) Allergy to multiple antibiotics Acute suprapubic pain Neurogenic bladder, NOS COVID-19 Primary cancer of foot Pulmonary embolism Degenerative cervical disc Lumbar disc disease Celiac disease Pure hypercholesterolemia Epilepsy Hypothyroidism COPD (chronic obstructive pulmonary disease) Pseudoseizure Conversion disorder Colon cancer Paroxysmal A-fib Allergy to multiple drugs Deep vein thrombosis Surgical History History of arthroplasty History of hysterectomy (~1979) Hx of cholecystectomy S/P IVC filter History of partial surgical removal of colon History of partial gastrectomy History of colectomy History of colostomy reversal History of bladder surgery History of sinus surgery History of facial surgery History of colonoscopy Family History Mother CAD (coronary artery disease) Other Mental health disorder Social History Household Members: None Household Members Other:: 1 Housing: Apartment Do you presently have visiting nurse or other home services: Yes Alcohol intake: former Patient Tobacco Use Status: Never used Tobacco e-Cigarette/Vaping Use: Never Used Second Hand Smoke Exposure: Yes Advance Directives Date on File: 08/08/23 service: No Current occupational status: disabled Cognitive needs: Yes (cane) Hearing needs: No Vision needs: Yes (Glasses) Questionnaire PHQ-9 Over the last 2 weeks, how often have you been bothered by any of the following problems? 1. Little interest or pleasure in doing things: not at all 2. Feeling down, depressed, or hopeless: not at all 3. Trouble falling or staying asleep, or sleeping too much: not at all 4. Feeling tired or having little energy: not at all 5. Poor appetite or overeating: not at all 6. Feeling bad about yourself - or that you are a failure or have let yourself or your family down: not at all 7. Trouble concentrating on things, such as reading the newspaper or watching television: not at all 8. Moving or speaking so slowly that other people could have noticed. Or the opposite - being so fidgety or restless that you have been moving around a lot more than usual: not at all 9. Thoughts that you would be better off or of hurting yourself in some way: not at all Total score: 0 Depression Screening Interpretation: Negative Depression Screening Done: Yes Source: Developed by Drs. Ranjit Valdovinos, Anila Baldwin, Saud Alilson and colleagues, with an educational lionel from [employer]. Thrive Questionnaire Date Thrive assessed: 10/08/23 I am a: Patient What is your living situation today?: I have a steady place to live Within the past 12 months, did the food you bought not last and you didn't have the money to get more?: Never true Within the past 12 months, did you worry whether your food would run out before you got money to buy more?: Never true Do you have trouble paying for medicines?: No Do you have trouble getting transportation to medical appointments?: No Do you have trouble paying your heating and electricity bill?: No Do you have trouble taking care of your child, family member or friend?: No Do you have trouble with day-to-day activities such as bathing, preparing meals, shopping, managing finances, etc.?: No Are you currently unemployed and looking for a job?: No Are you interested in more education?: No AUDIT C Alcohol Use Questionnaire (AUDIT-C) 1. How often do you have a drink containing alcohol?: Never Total Score: 0 EARNESTINE-7 AMB Questionnaire EARNESTINE-7 Date EARNESTINE - 7 assessed: 10/08/23 Feeling nervous, anxious, or on edge: 0 = Not at all Not being able to stop or control worryin = Not at all Worrying too much about different things: 0 = Not at all Trouble relaxin = Not at all Being so restless that it is hard to sit still: 0 = Not at all Becoming easily annoyed or irritable: 0 = Not at all Feeling afraid as if something awful might happen: 0 = Not at all Total EARNESTINE-7 score (0-4 normal; 5-9 mild; 10-14 moderate; 15-21 severe): 0 Source: Developed by Drs. Ranjit Valdovinos, Anila Baldwin, Saud Allison and colleagues, with an educational lionel from [employer]. Physical exam (Primary Care) Vital Signs: Last Vital Signs Pulse 68 10/08/23 15:13 BP 98/58 L 10/08/23 15:13 Pulse Ox 89 L 10/08/23 15:13 Oxygen Delivery Method Room Air 10/08/23 15:13 BMI result Body Mass Index 25.4 Tobacco/Smoking Status: Tobacco use Status Tobacco use date assessed 10/08/23 10/08/23 15:16 Patient Tobacco Use Status Never used Tobacco 10/08/23 15:16 e-Cigarette/Vaping Use Never Used 10/08/23 15:16 PHQ-9: PHQ-9 Score PHQ-9: Total score 0 10/08/23 15:16 Depression Screening Interpretation: Negative Thrive Assessment: Date of Thrive Assessment Date Thrive assessed 10/08/23 10/08/23 15:16 Const General: cooperative and healthy appearing Nutritional Appearance: well nourished Orientation/consciousness: patient oriented x3 Limitations: no limitations HENMT Head: Yes normal to inspection Eyes General: appearance normal, both eyes and all related structures Neck Neck: Yes normal visual inspection Chest Chest palpation & inspection: normal palpation of entire chest wall Resp Effort & Inspection: normal respiratory effort Neuro General: patient oriented x3 Assessment and Plan Assessment & Plan (1) Complicated urinary tract infection: Code(s): N39.0 - Urinary tract infection, site not specified Plan: I spoke to the Deanna GUTIÉRREZ at [phone]. She informed me that infectious disease service at [facility] had put the PICC line for her multiple urinary tract infections. The antibiotic treatment has stopped a week ago. Patient did not want the PICC line removed as she felt she would need more antibiotics. Her urologist, Dr. Cadena gave a verbal order to keep the PICC line in place and change the dressing. The [facility] nurse reports that patient is manipulative and gives different histories to different medical providers. A call has been placed to Dr. Clayton. I am not comfortable ordering the port. Patient also has a list of medications that I am not comfortable ordering. This includes Lamictal, duloxetine, midodrine, I do not have any documentation from the specialist stating that these medications should be continued. A call has been placed to Dr. Del Toro, a department store salesperson at [facility], requesting records on the reason for apixaban. I spent 60 minutes coordinating the care. Coding Level of Care Code Est Pt Level 5 (49894) Diagnoses Complicated urinary tract infection N39.0
[2023-10-08 15:13] VITALS: BP 98/58; PULSE 68; O2SAT 89; BMI 25.4
== END 2023-10-08 16:28 | disposition home or self-care (01) ==
PROVIDERS: Visit Provider Internal Medicine
DX: N39.0 Urinary tract infection, site not specified (principal)
CPT/HCPCS: 99215

== ENCOUNTER 2023-10-30 08:33 | Outpatient (AMB) | payer MEDICARE, MEDICAID, SELFPAY ==
--- NOTE | 2023-10-30 08:58 | MHC.OFFVIS ---
Intake Vital Signs 10/30/23 09:04 Height 5 ft Weight 125 lb BMI 24.4 BP 118/71 Blood Pressure Location Lt brachial Position Sitting Pulse 83 Intake Visit Reasons: Intestinal malabsorption Intake Note: Patient new consult for Intestinal malabsorption. Patient cc: N/V, abdominal pain, diarrhea, acid reflex with burning sensation and gassy. 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 Accompanied by: Self / Same As Patient Allergies erythromycin base [ERYTHROMYCIN BASE] Allergy (Severe, Verified 10/30/23 08:57) Anaphylaxis levofloxacin [From Levaquin] Allergy (Severe, Verified 10/30/23 08:57) Anaphylaxis Penicillins [PCN] Allergy (Severe, Verified 10/30/23 08:57) Anaphylaxis seafood Allergy (Severe, Verified 10/30/23 08:57) Anaphylaxis Sulfa (Sulfonamide Antibiotics) [SULFA (SULFONAMIDE ANTIBIOTICS)] Allergy (Severe, Verified 10/30/23 08:57) Anaphylaxis, vomiting Tetracyclines Allergy (Severe, Verified 10/30/23 08:57) Anaphylaxis divalproex sodium [Depakote] Allergy (Unknown, Verified 10/30/23 08:57) altered mental status gluten [GLUTEN] Allergy (Unknown, Verified 10/30/23 08:57) BLOATING,RASH rice Allergy (Verified 10/30/23 08:57) Unknown HPI HPI Comments History of Present Illness Details 68 y.o F with PMH of colon ca initially in her 30s s/p partial resection at [facility] complicated by recurrence most recently 3 years ago ([facility]) who is here to establish care for colon cancer surveillance. Currently reports seeing scant fresh blood or clots in her ostomy at least 1 week for the past 3-4 months. She also reports profuse diarrhea any time she eats, but that is a more chronic issue. Has not had a colonoscopy since her last surgery at [facility]. At that time, pt also had ?? part of her stomach removed but she is unclear of the indication. [facility] or [facility] records not available at the time fo this visit. Also reported unintentional weight loss of 20 lb in the last 1 year, however that is not corroborated by the chart, in fact has gained 10 lb since 2021. Has strong family history of multiple solid organ cancers as below. Patient also underwent a genetic Cgx comprehensive complete cancer panel June 2023 which was negative Mother: colon cancer at 60, bladder ca 62 Brother: colon cancer at 45 Father: lung ca and gastric ca at 71 [facility] Medical History History of pulmonary embolus (PE) Allergy to multiple antibiotics Acute suprapubic pain Neurogenic bladder, NOS COVID-19 Primary cancer of foot Pulmonary embolism Degenerative cervical disc Lumbar disc disease Celiac disease Pure hypercholesterolemia Epilepsy Hypothyroidism COPD (chronic obstructive pulmonary disease) Pseudoseizure Conversion disorder Colon cancer Paroxysmal A-fib Allergy to multiple drugs Deep vein thrombosis Surgical History History of arthroplasty History of hysterectomy (~1979) Hx of cholecystectomy S/P IVC filter History of partial surgical removal of colon History of partial gastrectomy History of colectomy History of colostomy reversal History of bladder surgery History of sinus surgery History of facial surgery History of colonoscopy Family History Mother CAD (coronary artery disease) Other Mental health disorder Social History Household Members: None Household Members Other:: 1 Housing: Apartment Do you presently have visiting nurse or other home services: Yes Alcohol intake: former Patient Tobacco Use Status: Never used Tobacco e-Cigarette/Vaping Use: Never Used Second Hand Smoke Exposure: Yes Advance Directives Date on File: 08/08/23 service: No Current occupational status: disabled Cognitive needs: Yes (cane) Hearing needs: No Vision needs: Yes (Glasses) Review of Systems Const All systems reviewed & are unremarkable except as noted in HPI and below Physical Exam Vital Signs: Last Vital Signs Pulse 83 10/30/23 09:04 BP 118/71 10/30/23 09:04 BMI result Body Mass Index 24.4 Gen appear: NAD, frail HEENT: nonicteric, Chest: CTA CVS: Regular S1/S2 Abd: soft, nontender, nondistended, LLQ ostomy with liquid stool Ext: no peripheral edema Neuro: A/Ox3, noted to move all extremities spontaneously Assessment & Plan Assessment & Plan (1) History of colon cancer: Code(s): Z85.038 - Personal history of other malignant neoplasm of large intestine (2) Chronic abdominal pain: Code(s): R10.9 - Unspecified abdominal pain; G89.29 - Other chronic pain (3) Anemia: Code(s): D64.9 - Anemia, unspecified (4) Change in bowel habit: Code(s): R19.4 - Change in bowel habit (5) Chronic anticoagulation: Code(s): Z79.01 - FPC (current) use of 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 Plan We will set her up for a bidirectional endoscopy for i) colon cancer surveillance ii) blood in ostomy iii) abdominal pain wth worsening diarrhea and iv) anemia. An upper endoscopy will also be set up at the same time, for anemia, abdominal pain as well as for reported family history of gastric cancer. Patient reportedly on Eliquis b.i.d. for anticoagulation for pulmonary embolism, however does not appear to have been picked up from pharmacy since June 2023. In any case, if she is truly on this, this is to be held for 2 days prior to the procedure. Plan: - EGD/colo - pt requests this to be done by next month as will then be going to [place] for her bladder surgery - PEG prep given, ok to take 2000ml only as long as has clear stools - Bisacodyl 10mg to be taken once at noon time the day before the procedure - ELiquis to eb held x 2 days before the procedure - Will also request records from [facility] and [facility] for accurate surgical hx Follow up after procedures Medications: New peg 3350-electrolytes 236-22.74-6.74 -5.86 gram (Golytely) as per split prep instructions, until fecal effluent is clear 240 mL PO Q10M 4,000 mL 0RF colonoscopy bisacodyl 10 mg (2 x 5 mg) PO ONCE 1 day 2 tabs 0RF day before colonoscopy at noon Coding Level of Care Code New Pt Level 4 (80302) Diagnoses History of colon cancer Z85.038 Chronic abdominal pain R10.9; G89.29 Anemia D64.9 Change in bowel habit R19.4 Chronic anticoagulation Z79.01
[2023-10-30 09:04] VITALS: BP 118/71; PULSE 83; BMI 24.4
== END 2023-10-30 10:56 | disposition home or self-care (01) ==
PROVIDERS: Visit Provider Internal Medicine
DX: Z85.038 Personal history of other malignant neoplasm of large intestine (principal); R10.9 Unspecified abdominal pain; G89.29 Other chronic pain; D64.9 Anemia, unspecified; R19.4 Change in bowel habit; Z79.01 Long term (current) use of 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
CPT/HCPCS: 99204

== ENCOUNTER → 2023-10-30 08:33 | Outpatient (BNVA) | payer MEDICARE, MEDICAID, SELFPAY | PROVIDERS: Visit Provider Internal Medicine | DX: D64.9 Anemia, unspecified (principal); R10.9 Unspecified abdominal pain; R19.4 Change in bowel habit; G89.29 Other chronic pain; Z85.038 Personal history of other malignant neoplasm of large intestine; Z79.01 Long term (current) use of 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 | CPT/HCPCS: 99202 ==

== ENCOUNTER 2023-12-04 09:11 | Day surgery (SDC) | payer MEDICARE, MEDICAID, SELFPAY ==
--- NOTE | 2023-12-03 09:05 | HO.ANESPROP2 ---
Documented by User: Balbina Camarena NP 12/03/23 09:08 HPI - Anesthesia Eval Consult details Narrative: 68yo F for Upper Endoscopy and Colonoscopy Eliquis for hx PE/DVT PMFSH Active Problems Active Problems: All Active Problems (Updated 10/30/23 @ 10:24 by Hedy Whiting MD) Chronic anticoagulation (Acute) Anemia (Acute) Lumbar radiculopathy (Acute) Change in bowel habit (Acute) Malabsorption (Acute) Complicated urinary tract infection (Acute) Bilateral flank pain (Acute) Acute pyelonephritis (Acute) Abdominal wall pain (Acute) COPD (chronic obstructive pulmonary disease) (Acute) Neurogenic bladder (Acute) History of gastric cancer (Acute) History of colon cancer (Acute) Pain in both feet (Acute) Abdominal hernia (Acute) UTI (urinary tract infection) (Acute) Chronic epigastric pain (Acute) Esophagitis (Acute) Chronic colitis (Acute) Low back pain (Acute) Colon cancer (Acute) Pure hypercholesterolemia (Acute) Epilepsy (Acute) Chronic abdominal pain (Acute) Hypothyroidism (Acute) UTI (urinary tract infection) (Acute) Pseudoseizure (Acute) Conversion disorder (Acute) Pseudoseizures (Acute) Hypothyroid (Acute) Colitis (Acute) Past Medical History Medical History History of pulmonary embolus (PE) Allergy to multiple antibiotics Acute suprapubic pain Neurogenic bladder, NOS COVID-19 Primary cancer of foot Pulmonary embolism Degenerative cervical disc Lumbar disc disease Celiac disease Pure hypercholesterolemia Epilepsy Hypothyroidism COPD (chronic obstructive pulmonary disease) Pseudoseizure Conversion disorder Colon cancer Paroxysmal A-fib Allergy to multiple drugs Deep vein thrombosis Family History Family History Mother CAD (coronary artery disease) Other Mental health disorder Surgical History Surgical History History of arthroplasty History of hysterectomy (~1979) Hx of cholecystectomy S/P IVC filter History of partial surgical removal of colon History of partial gastrectomy History of colectomy History of colostomy reversal History of bladder surgery History of sinus surgery History of facial surgery History of colonoscopy Social History Social History Household Members: None Household Members Other:: 1 Housing: Apartment Do you presently have visiting nurse or other home services: Yes Alcohol intake: former Patient Tobacco Use Status: Never used Tobacco e-Cigarette/Vaping Use: Never Used Second Hand Smoke Exposure: Yes Use of substances other than those prescribed or required for medical reasons: No Are you DNR?: No Advance Directives: No Advance Directives Information Provided: Yes Advance Directives Date on File: 08/08/23 service: No Current occupational status: disabled Cognitive needs: Yes (cane) Hearing needs: No Vision needs: Yes (Glasses) Meds Allergies Allergy/AdvReac Type Severity Reaction Status Date / Time erythromycin base Allergy Severe Anaphylaxis Verified 10/30/23 08:57 [ERYTHROMYCIN BASE] levofloxacin [From Levaquin] Allergy Severe Anaphylaxis Verified 10/30/23 08:57 Penicillins [PCN] Allergy Severe Anaphylaxis Verified 10/30/23 08:57 seafood Allergy Severe Anaphylaxis Verified 10/30/23 08:57 Sulfa (Sulfonamide Allergy Severe Anaphylaxis, Verified 10/30/23 08:57 Antibiotics) vomiting [SULFA (SULFONAMIDE ANTIBIOTICS)] Tetracyclines Allergy Severe Anaphylaxis Verified 10/30/23 08:57 divalproex sodium [Depakote] Allergy Unknown altered Verified 10/30/23 08:57 mental status gluten [GLUTEN] Allergy Unknown BLOATING,RA Verified 10/30/23 08:57 SH rice Allergy Unknown Verified 10/30/23 08:57 Home Medications Medication Instructions Recorded Confirmed Last Taken Type loperamide 2 mg capsule 2 mg PO NEEDED PRN Diarrhea 01/07/22 12/04/23 01/06/22 History magnesium oxide 400 mg (241.3 mg 1 tab PO BID 01/07/22 12/04/23 01/06/22 History magnesium) tablet potassium chloride 10 mEq 10 meq PO BID 07/14/23 12/04/23 Unknown History capsule,extended release Exam Pertinent Lab Results Pertinent Lab Results: Laboratory Tests 08/08/23 08/08/23 08/08/23 12:15 12:16 12:16 WBC 5.9 Hgb 11.7 L Hct 35.0 L Plt Count 301 D Sodium 140 Potassium 3.5 D Chloride 107 Carbon Dioxide 25 BUN 14 Creatinine 0.70 Narrative Narrative: EKG 07/2023 Vent. Rate : 065 BPM Atrial Rate : 065 BPM P-R Int : 096 ms QRS Dur : 080 ms QT Int : 370 ms P-R-T Axes : 043 -41 066 degrees QTc Int : 384 ms Sinus rhythm with short CA Left axis deviation Abnormal ECG When compared with ECG of 26-JUL-2023 18:38, No significant change was found Heart rate has decreased Assessment and Plan Assessment Anesthesia Assessment: Chart Reviewed Documented by User: Bhavesh Alexis MD 12/04/23 11:53 PMFSH Past Medical History Medical History History of pulmonary embolus (PE) Allergy to multiple antibiotics Acute suprapubic pain Neurogenic bladder, NOS COVID-19 Primary cancer of foot Pulmonary embolism Degenerative cervical disc Lumbar disc disease Celiac disease Pure hypercholesterolemia Epilepsy Hypothyroidism COPD (chronic obstructive pulmonary disease) Pseudoseizure Conversion disorder Colon cancer Paroxysmal A-fib Allergy to multiple drugs Deep vein thrombosis Family History Family History Mother CAD (coronary artery disease) Other Mental health disorder Family history of problems with anesthesia: No Surgical History Surgical History History of arthroplasty History of hysterectomy (~1979) Hx of cholecystectomy S/P IVC filter History of partial surgical removal of colon History of partial gastrectomy History of colectomy History of colostomy reversal History of bladder surgery History of sinus surgery History of facial surgery History of colonoscopy History of Problems with Anesthesia: No Social History Social History Household Members: None Household Members Other:: 1 Housing: Apartment Do you presently have visiting nurse or other home services: Yes Alcohol intake: former Patient Tobacco Use Status: Never used Tobacco e-Cigarette/Vaping Use: Never Used Second Hand Smoke Exposure: Yes Use of substances other than those prescribed or required for medical reasons: No Are you DNR?: No Advance Directives: No Advance Directives Information Provided: Yes Advance Directives Date on File: 08/08/23 service: No Current occupational status: disabled Cognitive needs: Yes (cane) Hearing needs: No Vision needs: Yes (Glasses) Meds Allergies Allergy/AdvReac Type Severity Reaction Status Date / Time erythromycin base Allergy Severe Anaphylaxis Verified 10/30/23 08:57 [ERYTHROMYCIN BASE] levofloxacin [From Levaquin] Allergy Severe Anaphylaxis Verified 10/30/23 08:57 Penicillins [PCN] Allergy Severe Anaphylaxis Verified 10/30/23 08:57 seafood Allergy Severe Anaphylaxis Verified 10/30/23 08:57 Sulfa (Sulfonamide Allergy Severe Anaphylaxis, Verified 10/30/23 08:57 Antibiotics) vomiting [SULFA (SULFONAMIDE ANTIBIOTICS)] Tetracyclines Allergy Severe Anaphylaxis Verified 10/30/23 08:57 divalproex sodium [Depakote] Allergy Unknown altered Verified 10/30/23 08:57 mental status gluten [GLUTEN] Allergy Unknown BLOATING,RA Verified 10/30/23 08:57 SH rice Allergy Unknown Verified 10/30/23 08:57 Home Medications Medication Instructions Recorded Confirmed Last Taken Type loperamide 2 mg capsule 2 mg PO NEEDED PRN Diarrhea 01/07/22 12/04/23 01/06/22 History magnesium oxide 400 mg (241.3 mg 1 tab PO BID 01/07/22 12/04/23 01/06/22 History magnesium) tablet potassium chloride 10 mEq 10 meq PO BID 07/14/23 12/04/23 Unknown History capsule,extended release Exam Airway Mallampati Class: II (small mouth opening, prev jaw reconstruction) TM Dist: >3cm Neck ROM: Full Denture: Upper and Lower Heart: ok Lungs: ok Assessment and Plan Assessment Anesthesia Assessment: Anesthesia Plan Discussed Final Anesthetic Review Family History of Problems with Anesthesia: No History of Problems with Anesthesia: No NPO: Yes ASA Class: III Final Preanesthetic Review: No Changes in Pt Med Stat, Meds/Allgs Chart Reviewed, Consent Obtained/Reviewed and Anes Risks/Benef Reviewed Patient Risk: Intermediate Procedure Risk: Intermediate Anesthetic Plan Anesthetic Plan: Agree w/ Assess. and Plan and TIVA Disposition: Standard PACU
[2023-12-04 10:26] VITALS: BMI 25.0
[2023-12-04 10:30] VITALS: BP 163/83; PULSE 87; RESP 18; TEMP 36.6; O2SAT 95
--- NOTE | 2023-12-04 11:22 | MHC.SHP ---
Pre-Procedural Eval Section A - 24 Hr Update-Section A only Date of Service: 12/04/23 Section B - Complete if H&P > 30 days Chief Complaint: Personal hx of CRC, anemia, diarrhea Details of Present Illness: Medical History History of pulmonary embolus (PE) Allergy to multiple antibiotics Acute suprapubic pain Neurogenic bladder, NOS COVID-19 Primary cancer of foot Pulmonary embolism Degenerative cervical disc Lumbar disc disease Celiac disease Pure hypercholesterolemia Epilepsy Hypothyroidism COPD (chronic obstructive pulmonary disease) Pseudoseizure Conversion disorder Colon cancer Paroxysmal A-fib Allergy to multiple drugs Deep vein thrombosis Surgical History History of arthroplasty History of hysterectomy (~1979) Hx of cholecystectomy S/P IVC filter History of partial surgical removal of colon History of partial gastrectomy History of colectomy History of colostomy reversal History of bladder surgery History of sinus surgery History of facial surgery History of colonoscopy Present Medications: see Short Stay Collaborative assessment History of Previous Operations: Relevant previous surgery/procedure and date(s) Allergies: Allergies Allergy/AdvReac Type Severity Reaction Status Date / Time erythromycin base Allergy Severe Anaphylaxis Verified 10/30/23 08:57 [ERYTHROMYCIN BASE] levofloxacin [From Levaquin] Allergy Severe Anaphylaxis Verified 10/30/23 08:57 Penicillins [PCN] Allergy Severe Anaphylaxis Verified 10/30/23 08:57 seafood Allergy Severe Anaphylaxis Verified 10/30/23 08:57 Sulfa (Sulfonamide Allergy Severe Anaphylaxis, Verified 10/30/23 08:57 Antibiotics) vomiting [SULFA (SULFONAMIDE ANTIBIOTICS)] Tetracyclines Allergy Severe Anaphylaxis Verified 10/30/23 08:57 divalproex sodium [Depakote] Allergy Unknown altered Verified 10/30/23 08:57 mental status gluten [GLUTEN] Allergy Unknown BLOATING,RA Verified 10/30/23 08:57 SH rice Allergy Unknown Verified 10/30/23 08:57 Review of Systems Review of Systems Comment: 10 point ROS as above, otherwise negative Exam Surgical H&P Exam: Normal: HEENT, Normal: Heart, Normal: Lungs, Normal: Extremities, Normal: Abdomen, Normal: Skin and Normal: Neurological Plan Diagnosis/Plan: Unchanged I have reviewed the history and physical and performed a pertinent physical examination on my patient. No changes have occurred unless specified. Time Spent With Patient Time: Total time managing care of this patient today ____ minutes.
[2023-12-04] MEDS: Lactated Ringers 1,000 ML 100 ML IVCONT (11:47)
--- NOTE | 2023-12-04 11:50 | PC.NURSE ---
pt with states multiple poor stick iv episodes and they use vein finder. one retrieved from [facility]. 3rn's & 2 anesthesiologists attempts with ultimate #22 rfoot with anesthesia ultrasound. pt tolerated well states this always happens.
--- NOTE | 2023-12-04 12:34 | P.OP_ITS ---
Operative Note Operative Note Date of Service: 12/04/23 Narrative: Procedure: Upper endoscopy and colonoscopy Indication: Personal hx of CRC, anemia, diarrhea Endoscopist: Hedy Whiting MD Anesthesia Provider: Dr Bhavesh Alexis Anesthesia type: MAC Instrument: Olympus [id number]-[id number] ?? EGD Procedure:?? The procedure, indications, preparation and potential complications were reviewed with the patient, who indicated understanding and gave written informed consent to proceed. A physical exam was performed. The endoscope was introduced through the mouth, and advanced to the duodenum. The mucosa was carefully examined on slow withdrawal of the endoscope. The patient tolerated the procedure well. There were no immediate complications.? ? EGD Findings:? * Esophagus:? Normal esophageal mucosa. A small papilloma vs plaque measuring 1 cm was noted at 30 cm and biopsied with cold forceps. Z line was at 39 cm. * Stomach:? Normal gastric mucosa. Retroflexion was performed in the cardia. A few polyps in the fundus were noted. * Duodenum: Normal duodenal mucosa to the extent visualised. Cold forceps biopsies were taken from the duodenal bulb and 2nd portion of the duodenal to rule out celiac sprue. Colonoscopy Procedure: The patient was then turned for the colonoscopy. A digital rectal exam was not performed due to almost imperforate anus. The patient was positioned supine. The existing colostomy appliance was removed and the scope was then inserted through the stoma and advanced through the colon to the cecum at 45 cm and terminal ileum Appendiceal orifice and ileocecal valve were identified. Mucosa was carefully examined under high definition white light as the instrument was slowly withdrawn in a retrograde panoramic fashion. Retroflexion was not performed. The procedure was not difficult. There were no immediate obvious complications. The quality of the prep was BBPS: 3+3+N/A = adequate Withdrawal time 7 minutes. Limitations: No limitations Colonoscopy Findings: Mucosa: Evidence of end colostomy otherwise normal to cecum and terminal ileum. Cold forceps biopsies were taken from R and L side of the colon to r/o microscopic colitis. Impressions:? * Esophageal papilloma (biopsy) * Fundic gland polyps * Normal duodenum (biopsy) * End colostomy * Normal colon and terminal ileum mucosa Recommendations: - Follow path results - Check iron studies. If iron deficiency, will review indication for VCE vs CTE for small bowel evaluation. - If non-iron deficiency anemia, will refer to heme for further evaluation. - Avoid NSAIDs - Repeat colo for surveillance in 5 years due to personal CRC hx
[2023-12-04 12:48] VITALS: BP 100/67; PULSE 78; RESP 14; TEMP 36.3; O2SAT 98
[2023-12-04 13:03] VITALS: BP 124/67; PULSE 82; RESP 15; O2SAT 98
[2023-12-04 13:09] LABS: Hematocrit 37.5 % (37.0-47.0); Hemoglobin 12.4 g/dl (12.0-16.0); Mean Corpuscular HGB Conc 33.1 g/dl (31.0-35.0); Mean Corpuscular Hemoglobin 30.6 pg (27.0-33.0); Mean Corpuscular Volume 92.6 fL (80.0-98.0); Mean Platelet Volume 8.6 fL (9.4-12.3); Platelet Count 351 X10*3/uL (160-400); Red Blood Count 4.05 X10*6/uL (4.20-5.50); Red Cell Distribution Width 14.9 % (11.0-16.0); White Blood Count 5.8 X10*3/uL (4.8-10.8)
[2023-12-04 13:13] VITALS: BP 127/71; PULSE 74; RESP 18; TEMP 36.3; O2SAT 97
[2023-12-04 13:43] LABS: Ferritin 26 ng/mL (10-250); Iron 31 mcg/dL (30-160); Percent Iron Saturation 8 % (15-50); Total Iron Binding Capacity 403 mcg/dL (228-428); Unsaturated Iron Binding 372 ug/dL
[2023-12-04 13:55] LABS: Folate 15.4 ng/mL (> or = 4.0); Vitamin B12 170 pg/mL (200-900)
== END 2023-12-04 13:48 | disposition home or self-care (01) ==
PROVIDERS: PCP Internal Medicine; Visit Provider Internal Medicine
PROC: (CPT 43239; principal; 2023-12-04 11:10)
DX: K31.7 Polyp of stomach and duodenum (principal); D64.9 Anemia, unspecified; G89.29 Other chronic pain; Z85.028 Personal history of other malignant neoplasm of stomach; Z12.11 Encounter for screening for malignant neoplasm of colon; Z93.3 Colostomy status; Z90.3 Acquired absence of stomach [part of]; R19.4 Change in bowel habit; Z85.038 Personal history of other malignant neoplasm of large intestine; E78.00 Pure hypercholesterolemia, unspecified; I48.0 Paroxysmal atrial fibrillation; Z90.49 Acquired absence of other specified parts of digestive tract; Z90.710 Acquired absence of both cervix and uterus; Z86.711 Personal history of pulmonary embolism; Z86.718 Personal history of other venous thrombosis and embolism; Z80.1 Family history of malignant neoplasm of trachea, bronchus and lung; Z15.09 Genetic susceptibility to other malignant neoplasm; Z79.01 Long term (current) use of 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
CPT/HCPCS: 43239; 44389; 36415; 82607; 82728; 82746; 83540; 85027; 88305; 88312; 88313; J2704

== ENCOUNTER → 2023-12-04 09:11 | Outpatient (BNV) | payer MEDICARE, MEDICAID, SELFPAY | PROVIDERS: PCP Internal Medicine; Visit Provider Internal Medicine | DX: D64.9 Anemia, unspecified (principal); Z85.028 Personal history of other malignant neoplasm of stomach; K31.7 Polyp of stomach and duodenum; R19.7 Diarrhea, unspecified; Z85.038 Personal history of other malignant neoplasm of large intestine | CPT/HCPCS: 43239; 45380 ==

== ENCOUNTER 2023-12-17 11:49 | Outpatient (AMB) | payer MEDICARE, MEDICAID, SELFPAY ==
--- NOTE | 2023-12-17 11:50 | A.OFFVIS_ITS ---
Vital Signs 12/17/23 11:53 Height 5 ft Weight 127 lb 13.89 oz BMI 25.0 BP 106/68 Blood Pressure Location Lt brachial Position Sitting Pulse 91 Intake Visit Reasons: s/p egd/colon Intake Note: Christi presents in the office as a follow up EGD and COLO. CC: She states that her only concern is still her diarrhea. Wardrobe Image Consultant Required: No Allergies erythromycin base [ERYTHROMYCIN BASE] Allergy (Severe, Verified 12/28/23 10:20) Anaphylaxis levofloxacin [From Levaquin] Allergy (Severe, Verified 12/28/23 10:20) Anaphylaxis Penicillins [PCN] Allergy (Severe, Verified 12/28/23 10:20) Anaphylaxis seafood Allergy (Severe, Verified 12/28/23 10:20) Anaphylaxis Sulfa (Sulfonamide Antibiotics) [SULFA (SULFONAMIDE ANTIBIOTICS)] Allergy (Severe, Verified 12/28/23 10:20) Anaphylaxis, vomiting Tetracyclines Allergy (Severe, Verified 12/28/23 10:20) Anaphylaxis divalproex sodium [Depakote] Allergy (Unknown, Verified 12/28/23 10:20) altered mental status gluten [GLUTEN] Allergy (Unknown, Verified 12/28/23 10:20) BLOATING,RASH rice Allergy (Verified 12/28/23 10:20) Unknown HPI Comments Details: 68 y.o F with PMH of colon ca initially in her 30s s/p partial [place] [facility] [place] recurrence most recently 3 years ago ([facility]) who is here to establish care for colon cancer surveillance. 10/30/23: Currently reports seeing scant fresh blood or clots in her ostomy at least 1 week for the past 3-4 months. She also reports profuse diarrhea any time she eats, but that is a more chronic issue. Has not had a colonoscopy since her last surgery at [facility]. At that time, pt also had ?? part of her stomach removed but she is unclear of the indication. [facility] or [facility] records not available at the time fo this visit. Also reported unintentional weight loss of 20 lb in the last 1 year, however that is not corroborated by the chart, in fact has gained 10 lb since 2021. Has strong family history of multiple solid organ cancers as below. Patient also underwent a genetic Cgx comprehensive complete cancer panel June 2023 which was negative Mother: colon cancer at 60, bladder ca 62 Brother: colon cancer at 45 Father: lung ca and gastric ca at 71 12/04/23: EGD and ileoscopy: Impressions:? * Esophageal papilloma (biopsy) * Fundic gland polyps * Normal duodenum (biopsy) * End colostomy * Normal colon and terminal ileum mucosa Path: A. Duodenum, biopsy: Duodenal mucosa with preserved villi and no specific change. B. Esophagus, ?esophageal papilloma?, biopsy: Squamous mucosa with hyperplasia, spongiosis, and intraepithelial lymphocytes and neutrophils, consistent with esophagitis (see comment). C. Colon, right, biopsy: Colonic mucosa with no specific change; no evidence of microscopic colitis. D. Colon, left, biopsy: Colonic mucosa with no specific change; no evidence of m icroscopic colitis. Comment: (B): Features diagnostic for papilloma are not identified. Fungal stain pending; addendum to follow. 12/17/23: Patient seen in follow-up after endoscopy and colonoscopy. Does not report any acute gastrointestinal issues today. Continues to report liquidy stools through her ostomy, no blood reported today. [facility] Medical History (Updated 01/14/24 @ 11:24 by Hedy Whiting MD) History of pulmonary embolus (PE) Allergy to multiple antibiotics Acute suprapubic pain Neurogenic bladder, NOS COVID-19 Primary cancer of foot Pulmonary embolism Degenerative cervical disc Lumbar disc disease Celiac disease Pure hypercholesterolemia Epilepsy Hypothyroidism COPD (chronic obstructive pulmonary disease) Pseudoseizure Conversion disorder Colon cancer Paroxysmal A-fib Allergy to multiple drugs Deep vein thrombosis Surgical History (Updated 12/17/23 @ 11:51 by JAYRO Barrientos) History of esophagogastroduodenoscopy (EGD) History of arthroplasty History of hysterectomy (~1979) Hx of cholecystectomy S/P IVC filter History of partial surgical removal of colon History of partial gastrectomy History of colectomy History of colostomy reversal History of bladder surgery History of sinus surgery History of facial surgery History of colonoscopy Family History Mother CAD (coronary artery disease) Other Mental health disorder Social History Household Members: None Household Members Other:: 1 Housing: Apartment Do you presently have visiting nurse or other home services: Yes Alcohol intake: former Patient Tobacco Use Status: Never used Tobacco e-Cigarette/Vaping Use: Never Used Second Hand Smoke Exposure: Yes Advance Directives Date on File: 08/08/23 service: No Current occupational status: disabled Cognitive needs: Yes (cane) Hearing needs: No Vision needs: Yes (Glasses) Review of Systems Const All systems reviewed & are unremarkable except as noted in HPI and below Physical Exam Vital Signs: Last Vital Signs Pulse 91 12/17/23 11:53 BP 106/68 12/17/23 11:53 BMI result Body Mass Index 25.0 Gen appear: NAD HEENT: nonicteric, Chest: CTA CVS: Regular S1/S2 Abd: soft, nontender, nondistended, LLQ ostomy with liquid stool Ext: no peripheral edema Neuro: A/Ox3, noted to move all extremities spontaneously Assessment & Plan Assessment & Plan (1) Small intestinal bacterial overgrowth (SIBO): Code(s): K63.8219 - Small intestinal bacterial overgrowth, unspecified Category: Medical (2) Anemia: Code(s): D64.9 - Anemia, unspecified Category: Medical (3) Change in bowel habit: Code(s): R19.4 - Change in bowel habit Category: Medical (4) Irritable bowel syndrome with diarrhea: Code(s): K58.0 - Irritable bowel syndrome with diarrhea Category: Medical (5) Chronic diarrhea: Code(s): K52.9 - Noninfective gastroenteritis and colitis, unspecified Category: Medical Plan Reviewed with the patient that differentials for diarrhea include malabsorption given ileostomy status, irritable bowel syndrome with diarrhea, SIBO. Can trial rifaximin which may help with both SIBO and IBS-D. Advised to hold cholestyramine while on rifaximin. Previously noted anemia has resolved, would recommend continuing iron supplements for 3 months to boost ferritin further. Will recheck labs in 3 months. Plan: -rifaximin 550 b.i.d. x 14 days -hold cholestyramine while taking rifaximin -ferrous sulfate p.o. once daily -recheck CBC and iron studies in 3 months -patient to call us if diarrhea does not respond to rifaximin trial, otherwise follow-up in 5-6 months Orders: Orders Ferritin 3 Months D64.9 - Anemia, unspecified IRON PROFILE 3 Months D64.9 - Anemia, unspecified Vitamin B12 and Folate 3 Months D64.9 - Anemia, unspecified Medications: New ferrous sulfate 325 mg PO DAILY 90 tabs 0RF rifaximin 550 mg PO BID 28 tabs 0RF 14 days K63.8231 - Small intestinal bacterial overgrowth, unspecified
[2023-12-17 11:53] VITALS: BP 106/68; PULSE 91; BMI 25.0
== END 2023-12-17 12:34 | disposition home or self-care (01) ==
PROVIDERS: Visit Provider Internal Medicine
DX: K63.8219 Small intestinal bacterial overgrowth, unspecified (principal); D64.9 Anemia, unspecified; R19.4 Change in bowel habit; K58.0 Irritable bowel syndrome with diarrhea
CPT/HCPCS: 99214

== ENCOUNTER → 2023-12-17 11:49 | Outpatient (BNVA) | payer MEDICARE, MEDICAID, SELFPAY | PROVIDERS: Visit Provider Internal Medicine | DX: K58.0 Irritable bowel syndrome with diarrhea (principal); K63.8219 Small intestinal bacterial overgrowth, unspecified; D64.9 Anemia, unspecified; R19.4 Change in bowel habit | CPT/HCPCS: 99212 ==

== ENCOUNTER 2023-12-28 10:06 | Emergency (ER) | payer MEDICARE, MEDICAID, SELFPAY ==
--- NOTE | 2023-12-28 | ECG_ITS ---
Test Reason : vomiting Blood Pressure : / mmHG Vent. Rate : 074 BPM Atrial Rate : 074 BPM P-R Int : 116 ms QRS Dur : 078 ms QT Int : 374 ms P-R-T Axes : 065 -62 057 degrees QTc Int : 415 ms Sinus rhythm with Premature atrial complexes Left axis deviation Abnormal ECG When compared with ECG of 08-AUG-2023 12:15, Premature atrial complexes are now Present Referred By: Generic ED Physician Electronically Signed By:JOANN MARTINEZ MD
--- NOTE | ~2023-12-28 | CT_ITS ---
EXAMINATION: CT ABDOMEN AND PELVIS WITHOUT CONTRAST CLINICAL INFORMATION: Left flank pain COMPARISON: Previous CT of the abdomen and pelvis and abdominal ultrasound June 2023 TECHNIQUE: Multidetector volumetric imaging was performed from the superior aspect of the liver through the pubic symphysis. Sagittal and coronal reformatted images were obtained on the technologist's workstation. This CT examination was performed using dose optimization techniques as appropriate, variously including the following: *Automated exposure control *Adjustment of mA and/or kV according to patient size (this includes techniques or standardized protocols for targeted exams where dose is matched to indication/reason for exam; i.e. extremities or head) *Use of iterative reconstruction technique DLP: 383 mGy-cm FINDINGS: LUNG BASES: Chronic peripheral or subpleural scarring or subsegmental atelectasis in the lateral right lower lobe unchanged. Lung bases are otherwise clear. LIVER, GALLBLADDER, AND BILIARY TREE: The liver is normal in size, shape, and attenuation. Pneumobilia. The common bile duct is dilated measuring up to 2 cm and is dilated down to the head of the pancreas. This is similar to June 2023 exam. No focal liver lesion. The gallbladder has been removed. PANCREAS: Slightly prominent main pancreatic duct measuring up to 5 mm in the head of the pancreas. This is similar to prior exam. The pancreas is otherwise normal. SPLEEN: Unremarkable. ADRENAL GLANDS: Unremarkable. KIDNEYS AND URETERS: Small 1 to 2 mm nonobstructing stone in the lower pole of the left kidney. I millimeter round high attenuation lesion in the upper pole of the right kidney probably representing a hyperdense cyst. No imaging follow-up recommended. Kidneys are otherwise unremarkable. BLADDER: The bladder is not optimally distended. There may be mild diffuse bladder wall thickening. GASTROINTESTINAL TRACT: Extensive postsurgical changes to the small and large bowel and left lower quadrant colostomy. No evidence of obstruction. ABDOMINAL WALL: Lower ventral abdominal wall bulge. No hernia. LYMPH NODES: Normal. VASCULAR: IVC filter. PELVIC VISCERA: Post hysterectomy. OSSEOUS STRUCTURES: Mild degenerative changes of the spine and hip joints. CT/CT abdomen pelvis wo IV con IMPRESSION: Small nonobstructing left renal stone. Bladder not optimally distended. Stable liver and pancreas findings. Extensive postsurgical changes to the bowel. Fleischner guidelines were followed.
--- NOTE | ~2023-12-28 | XR_ITS ---
EXAMINATION: XR HAND/WRIST, RIGHT CLINICAL INFORMATION: Fell down, right middle finger and wrist injury and pain COMPARISON: None TECHNIQUE: PA, lateral, and oblique views of the right hand and wrist. FINDINGS: BONES: Bony structures are intact. There is no focal bone destruction or periosteal reaction seen. Frontal ulna deviation x-ray of right wrist shows normal right scaphoid. JOINTS: Alignment of joints is normal. SOFT TISSUE: Soft tissue is normal. No radiopaque foreign body or abnormal air collection is seen. XR/XR hand wrist RT IMPRESSION: 1. Normal x-rays of right hand and right wrist. No fracture or dislocation or signs of osteomyelitis are found.
[2023-12-28 10:08] VITALS: BP 125/75; BP 148/98; PULSE 101; PULSE 129; RESP 20; TEMP 36.5; O2SAT 100; O2SAT 99; BMI 23.0
[2023-12-28 11:11] LABS: Basophils Percent Auto 0.4 % (0-2); Eosinophils Absolute Auto 0.1 X10*3/uL (0.0-0.4); Eosinophils Percent Auto 0.9 % (0-4); Hematocrit 38.8 % (37.0-47.0); Hemoglobin 12.8 g/dl (12.0-16.0); Imm Gran Abs Auto 0.02 X10*3/uL (0.00-0.03); Imm Gran Pct Auto 0.3 % (0.0-0.4); Lymphocytes Absolute Auto 1.7 X10*3/uL (1.2-4.9); Lymphocytes Percent Auto 25.3 % (20-40); MANUAL DIFF FLAG SCAN; Mean Corpuscular Hemoglobin 31.1 pg (27.0-33.0); Mean Corpuscular Volume 94.4 fL (80.0-98.0); Monocytes Absolute Auto 0.5 X10*3/uL (0.1-1.2); Neutrophils Absolute Auto 4.5 x10*3/uL (2.0-8.3); Neutrophils Percent Auto 66.1 % (45-73); PLT CLUMP 1; Red Blood Count 4.11 X10*6/uL (4.20-5.50); Red Cell Distribution Width 14.7 % (11.0-16.0); SCAN SMEAR FLAG 1
[2023-12-28 11:18] LABS: White Blood Count 6.8 X10*3/uL (4.8-10.8)
[2023-12-28 11:20] VITALS: RESP 24
[2023-12-28] MEDS: HYDROmorphone HCl 1 MG/ML SYRINGE IVPUSH ×2 (11:20→12:10)
[2023-12-28 11:51] LABS: SLIDE REVIEW VERIFIED
[2023-12-28 11:56] LABS: Influenza A PCR NEGATIVE (Negative); Influenza B PCR NEGATIVE (Negative); Resp Syncy Virus RNA Qual PCR NEGATIVE (Negative); SARS COV2 PCR INHOUSE NEGATIVE (Negative)
[2023-12-28 11:58] LABS: Alanine Aminotransferase 35 U/L (0-31); Albumin Level 3.7 g/dL (3.5-5.0); Alkaline Phosphatase 62 U/L (39-117); Anion Gap 10 (12-20); Aspartate Amino Transferase 23 U/L (5-31); Bilirubin Total 0.3 mg/dL (0.0-1.0); Blood Urea Nitrogen 11 mg/dL (9-16); Calcium 9.1 mg/dL (8.4-10.2); Carbon Dioxide 27 mmol/L (22-29); Chloride 110 mmol/L (96-108); Creatinine Clr Calc Pharmacy 68.8; Estimated Glomerular Filt Rate > 60; Glucose Random 79 mg/dL (60-115); Lipase 13 U/L (8-78); Magnesium 1.8 mg/dL (1.6-2.6); Potassium 3.7 mmol/L (3.3-5.1); Sodium 143 mmol/L (135-145); Total Protein 6.7 g/dL (6.5-8.0)
[2023-12-28 12:10] VITALS: RESP 20
[2023-12-28] MEDS: droPERidol 5 MG/2 ML VIAL 0.625 MG IVPUSH (12:10)
[2023-12-28] MEDS: 0.9 % Sodium Chloride 1,000 ML 999 ML IV (12:11)
[2023-12-28 12:31] LABS: Appearance Urine Cloudy; Color Urine Yellow; Glucose Urine UA Negative (Negative); Leukocyte Esterase Urine Trace (Negative); Nitrite Urine Positive (Negative); PH 5.5 (5.0-9.0); Specific Gravity - Urine 1.015 (1.005-1.025); UMIC TRIGGER UACC YES; Urine Blood Moderate (2+) (Negative); Urine Ketones Negative (Negative); Urine Protein Negative (Neg-Trace)
[2023-12-28 12:51] LABS: Bacteria Urine 1+ (None Seen); Hyaline Casts Urine 0-2 /LPF (0-2); UACC Culture Trigger YES
--- NOTE | 2023-12-28 14:18 | ED_ITS ---
HPI - General Adult General Chief complaint: Abdominal Pain Stated complaint: LOWER BACK PAIN Time Seen by Provider: 12/28/23 10:57 History of Present Illness HPI narrative: The patient is a 68-year-old woman who comes to the emergency room complaining of severe left-sided pain. She says that she has a long and extensive history of colon cancer. She reports that she has had multiple surgeries colon cancer. She says she is due to have her bladder removed because of her problems with colon cancer as well. She also says that she catheterizes herself regularly because of decreased bladder function. The patient says that she has had worsening pain in the left side of her torso for about 2 or 3 days and she is worried that she might have a kidney infection. She says she does not think she has a history of passing kidney stones. She does not know if she has had a fever. The patient also says that she injured her right hand yesterday when she slipped on ice. She is complaining of pain in the middle finger of the right hand and also of the wrist. Related Data Home Medications ?Medication ?Instructions ?Recorded ?Confirmed loperamide 2 mg capsule 2 mg PO NEEDED PRN Diarrhea 01/07/22 12/04/23 magnesium oxide 400 mg (241.3 mg 1 tab PO BID 01/07/22 12/04/23 magnesium) tablet potassium chloride 10 mEq 10 meq PO BID 07/14/23 12/04/23 capsule,extended release oxybutynin chloride 15 mg 15 mg PO DAILY 12/17/23 tablet,extended release 24 hr Previous Rx's ?Medication ?Instructions ?Recorded colostomy supplies #1 ea 04/16/23 Symbicort 80 mcg-4.5 mcg/actuation 2 puff inhalation BID #10.2 grams 07/20/23 HFA aerosol inhaler (budesonide-formoterol) albuterol sulfate 90 mcg/actuation 2 puff inhalation Q6H PRN 07/20/23 aerosol inhaler bronchospasm #18 grams amitriptyline 25 mg tablet 25 mg PO BEDTIME 30 days #30 tabs 07/20/23 apixaban 5 mg tablet (Eliquis) 5 mg PO BID 30 days #60 tabs 07/20/23 cholestyramine (with sugar) 4 gram 4 g PO BID 30 days #60 ea 07/20/23 powder for susp in a packet dicyclomine 20 mg tablet 20 mg PO BID #60 tabs 07/20/23 duloxetine 60 mg capsule,delayed 60 mg PO DAILY #30 caps 07/20/23 release (Cymbalta) levetiracetam 750 mg tablet 750 mg PO BID 30 days #60 tabs 07/20/23 levothyroxine 50 mcg tablet 50 mcg PO DAILY #90 tabs 07/20/23 loratadine 10 mg tablet 10 mg PO DAILY #90 tabs 07/20/23 midodrine 5 mg tablet 5 mg PO TID #90 tabs 07/20/23 [id number]-[id number] acid 0.4 1 tab PO DAILY #30 tabs 07/20/23 mg-lycopene 300 mcg-lutein 250 mcg tablet (CertaVite Senior) pantoprazole 40 mg tablet,delayed 40 mg PO DAILY #30 tabs 07/20/23 release simvastatin 40 mg tablet 40 mg PO BEDTIME #90 tabs 07/20/23 thiamine HCl (vitamin B1) 100 mg 100 mg PO DAILY #30 tabs 07/20/23 tablet (Vitamin B-1) trazodone 50 mg tablet 50 mg PO BEDTIME #30 tabs 07/20/23 colostomy bags #5 ea 07/24/23 cane #1 ea 08/31/23 cyanocobalamin (vitamin B-12) 3,000 mcg PO DAILY 90 days #90 caps 12/05/23 3,000 mcg capsule Advair HFA 115 mcg-21 2 puff inhalation Q12H #12 grams 12/06/23 mcg/actuation aerosol inhaler (fluticasone propion-salmeterol) ferrous sulfate 325 mg (65 mg 325 mg PO DAILY #90 tabs 12/17/23 iron) tablet rifaximin 550 mg tablet 550 mg PO BID 14 days #28 tabs 12/17/23 Allergies Allergy/AdvReac Type Severity Reaction Status Date / Time erythromycin base Allergy Severe Anaphylaxis Verified 12/28/23 10:20 [ERYTHROMYCIN BASE] levofloxacin [From Levaquin] Allergy Severe Anaphylaxis Verified 12/28/23 10:20 Penicillins [PCN] Allergy Severe Anaphylaxis Verified 12/28/23 10:20 seafood Allergy Severe Anaphylaxis Verified 12/28/23 10:20 Sulfa (Sulfonamide Allergy Severe Anaphylaxis, Verified 12/28/23 10:20 Antibiotics) vomiting [SULFA (SULFONAMIDE ANTIBIOTICS)] Tetracyclines Allergy Severe Anaphylaxis Verified 12/28/23 10:20 divalproex sodium [Depakote] Allergy Unknown altered Verified 12/28/23 10:20 mental status gluten [GLUTEN] Allergy Unknown BLOATING,RA Verified 12/28/23 10:20 SH rice Allergy Unknown Verified 12/28/23 10:20 Review of Systems 2 Review of Systems: Yes all other systems are reviewed and are negative [facility] Past Medical History Medical History (Updated 12/29/23 @ 00:01 by Miroslava Casper) History of pulmonary embolus (PE) Allergy to multiple antibiotics Acute suprapubic pain Neurogenic bladder, NOS COVID-19 Primary cancer of foot Pulmonary embolism Degenerative cervical disc Lumbar disc disease Celiac disease Pure hypercholesterolemia Epilepsy Hypothyroidism COPD (chronic obstructive pulmonary disease) Pseudoseizure Conversion disorder Colon cancer Paroxysmal A-fib Allergy to multiple drugs Deep vein thrombosis Surgical History (Updated 12/17/23 @ 11:51 by JAYRO Barrientos) History of esophagogastroduodenoscopy (EGD) History of arthroplasty History of hysterectomy (~1979) Hx of cholecystectomy S/P IVC filter History of partial surgical removal of colon History of partial gastrectomy History of colectomy History of colostomy reversal History of bladder surgery History of sinus surgery History of facial surgery History of colonoscopy Family History Family History Mother CAD (coronary artery disease) Other Mental health disorder Social History Social History Household Members: None Household Members Other:: 1 Housing: Apartment Do you presently have visiting nurse or other home services: Yes Alcohol intake: former Patient Tobacco Use Status: Never used Tobacco e-Cigarette/Vaping Use: Never Used Second Hand Smoke Exposure: Yes Advance Directives Date on File: 08/08/23 service: No Current occupational status: disabled Cognitive needs: Yes (cane) Hearing needs: No Vision needs: Yes (Glasses) Physical Exam ED Vital Signs: Vital Signs - 24 hr 12/28/23 10:08 12/28/23 11:20 12/28/23 12:10 Temperature 97.7 F Pulse Rate 101 H Respiratory Rate 20 24 H 20 Blood Pressure 125/75 Pulse Oximetry 100 Oxygen Delivery Method Room Air BMI result Body Mass Index 23.0 Const Other: The patient is a chronically ill-appearing 68-year-old woman who looked profoundly uncomfortable and was frequently asking for pain relief. HENMT Other: Face is symmetrical. Mucous membranes unremarkable. Eyes Other: Pupils are round and equal, conjunctivae clear Neck Other: No JVD Resp Effort & Inspection: normal respiratory effort Auscultation: clear to auscultation bilaterally Cardio Rate: tachycardic Rhythm: regular rhythm Heart sounds: S1 normal heart sound present and S2 normal heart sound present GI Other: The patient has a lot of surgical scars of the abdomen. Abdomen is diffusely tender, mostly on the left side. Back/Spine/Pelvis Other: There is left-sided CVA percussion tenderness Skin Other: Skin is pale and dry Neuro Other: The patient was awake and alert. She seemed distracted by discomfort but was otherwise neurologically intact. Extrem Other: No peripheral edema, no calf swelling or tenderness, no asymmetry. Medications Administered Discontinued Medications Generic Name Dose Route Start Last Admin Trade Name Freq PRN Reason Stop Dose Admin Droperidol 0.625 mg 12/28/23 11:46 12/28/23 12:10 Droperidol 5 Mg/2 Ml Vial IVPUSH 12/28/23 11:47 0.625 mg ONCE ONE Administration Hydromorphone HCl 1 mg 12/28/23 11:00 12/28/23 11:20 Hydromorphone Hcl 1 Mg/Ml Syringe IVPUSH 12/28/23 11:01 1 mg ONCE ONE Administration Protocol Hydromorphone HCl 1 mg 12/28/23 11:46 12/28/23 12:10 Hydromorphone Hcl 1 Mg/Ml Syringe IVPUSH 12/28/23 11:47 1 mg ONCE ONE Administration Protocol Sodium Chloride 1,000 mls @ 999 mls/hr 12/28/23 12:00 12/28/23 14:35 Ns IV 12/28/23 13:00 Infused .Q1H1M MAISHA Infusion Medical Decision Making Medical Decision Making MDM Narrative: The patient presented complaining of a severe degree of pain. She also describes a very complicated surgical history related to colon cancer. Surprisingly she says she has never received chemotherapy. Although the patient seemed profoundly uncomfortable her workup was ultimately unremarkable. Blood testing and CT scanning do not reveal any obvious explanation for her severe discomfort. She was most concerned that she might have had a left-sided kidney infection. This does not seem to be the case. The patient says that she performs self catheterization at home. She has an abnormal urinalysis. She has trace leukocyte esterase and positive nitrites. She seems to have chronically positive nitrites and also chronically positive leukocyte esterase. She only has 6-10 white cells which makes me think that she probably does not have an acute UTI. Her urine will likely be sent for culture but this will be difficult to interpret given that she performs self catheterization and is probably at high risk of being colonized. The patient was also concerned about injuries to her right hand and wrist. X- rays of the hand and the wrist are negative. She will be given a splint. Ultimately the patient looked much much better with pain control with IV hydromorphone and droperidol. At the time of discharge she looked quite well. Lab Data 12/28/23 11:03 12/28/23 11:31 Labs: Lab Results 12/28/23 12/28/23 12/28/23 Range/Units 11:03 11:31 12:20 WBC 6.8 (4.8-10.8) X10*3/uL RBC 4.11 L (4.20-5.50) X10*6/uL Hgb 12.8 (12.0-16.0) g/dl Hct 38.8 (37.0-47.0) % MCV 94.4 (80.0-98.0) fL MCH 31.1 (27.0-33.0) pg MCHC 33.0 (31.0-35.0) g/dl RDW 14.7 (11.0-16.0) % Plt Count TNP MPV TNP Immature Gran % (Auto) 0.3 (0.0-0.4) % Neut % (Auto) 66.1 (45-73) % Lymph % (Auto) 25.3 (20-40) % Moca % (Auto) 7.0 (2-11) % Eos % (Auto) 0.9 (0-4) % Baso % (Auto) 0.4 (0-2) % Lymph # (Auto) 1.7 (1.2-4.9) X10*3/uL Moca # (Auto) 0.5 (0.1-1.2) X10*3/uL Eos # (Auto) 0.1 (0.0-0.4) X10*3/uL Baso # (Auto) 0.0 (0.0-0.2) X10*3/uL Abs Immat Gran (auto) 0.02 (0.00-0.03) X10*3/uL Absolute Neuts (auto) 4.5 (2.0-8.3) x10*3/uL Absolute Nucleated RBC 0.000 (0.0-0.012) X10*3/uL Nucleated RBC % (auto) 0.0 (0.0-0.2) /100WBC Smear Tech's Comments VERIFIED Sodium 143 (135-145) mmol/L Potassium 3.7 (3.3-5.1) mmol/L Chloride 110 H (96-108) mmol/L Carbon Dioxide 27 (22-29) mmol/L Anion Gap 10 L (12-20) BUN 11 (9-16) mg/dL Creatinine 0.57 (0.5-1.4) mg/dL Estim Creat Clear Calc 68.8 Estimated GFR > 60 Random Glucose 79 (60-115) mg/dL Calcium 9.1 (8.4-10.2) mg/dL Magnesium 1.8 (1.6-2.6) mg/dL Total Bilirubin 0.3 (0.0-1.0) mg/dL AST 23 (5-31) U/L ALT 35 H (0-31) U/L Alkaline Phosphatase 62 (39-117) U/L C-Reactive Protein 0.10 (< or = 0.50) mg/dL Total Protein 6.7 (6.5-8.0) g/dL Albumin 3.7 (3.5-5.0) g/dL Lipase 13 (8-78) U/L Urine Color Yellow Urine Appearance Cloudy Urine pH 5.5 (5.0-9.0) Ur Specific [place] 1.015 (1.005-1.025) Urine Protein Negative (Neg-Trace) mg/dL Urine Glucose (UA) Negative (Negative) mg/dL Urine Ketones Negative (Negative) mg/dL Urine Blood Moderate (2+) H (Negative) Urine Nitrite Positive H (Negative) Ur Leukocyte Esterase Trace H (Negative) Urine RBC 3-5 H (0-2) /HPF Urine WBC 6-10 (0-5) /HPF Ur Squamous Epith Cells 3-5 (0-2) /HPF Urine Bacteria 1+ (None Seen) Hyaline Casts 0-2 (0-2) /LPF Influenza Type A (PCR) NEGATIVE (Negative) Influenza Type B (PCR) NEGATIVE (Negative) RSV RNA Qual (PCR) NEGATIVE (Negative) SARS-CoV-2 RNA (RT-PCR) NEGATIVE (Negative) Discharge Plan Discharge Clinical Impression: Left flank pain, Injury of right hand Patient Disposition: Home, Self-Care Additional Instructions: Your testing in the emergency room today is reassuring. Your blood testing does not show any sign of infection. Similarly the CT scan of your abdomen and pelvis does not suggest any acute infectious process. Your urine testing is very unlikely to represent an infection. A culture will be set up. The x-rays of your right hand and wrist do not show any fractures. Please wear the splint for comfort. Please follow up with your regular doctor next week. Continue your regular medications. Return to the emergency room if you are significantly worse. Prescriptions: No Action (DME) colostomy supplies See Rx Instructions .Route .MEDSUPPLY Qty: 1 11RF Rx Instructions: As directed albuterol sulfate 90 mcg/actuation HFA aerosol inhaler 2 puff inhalation Q6H PRN (Reason: bronchospasm) Qty: 18 1RF levetiracetam 750 mg tablet 750 mg PO BID 30 Days Qty: 60 3RF levothyroxine 50 mcg tablet 50 mcg PO DAILY Qty: 90 1RF loratadine 10 mg tablet 10 mg PO DAILY Qty: 90 1RF midodrine 5 mg tablet 5 mg PO TID Qty: 90 0RF simvastatin 40 mg tablet 40 mg PO BEDTIME Qty: 90 1RF amitriptyline 25 mg tablet 25 mg PO BEDTIME 30 Days Qty: 30 0RF Eliquis 5 mg tablet 5 mg PO BID 30 Days Qty: 60 3RF budesonide-formoterol [Symbicort] 80-4.5 mcg/actuation HFA aerosol inhaler 2 puff INHALATION BID Qty: 10.2 3RF cholestyramine (with sugar) 4 gram powder in packet 4 g PO BID 30 Days Qty: 60 3RF Rx Instructions: administer w/meal; avoid other meds within 1hr before or 4-6hr after dose dicyclomine 20 mg tablet 20 mg PO BID Qty: 60 2RF duloxetine [Cymbalta] 60 mg capsule,delayed release(DR/EC) 60 mg PO DAILY Qty: 30 3RF CertaVite Senior 0.4 mg-300 mcg- 250 mcg tablet 1 tab PO DAILY Qty: 30 5RF pantoprazole 40 mg tablet,delayed release (DR/EC) 40 mg PO DAILY Qty: 30 3RF trazodone 50 mg tablet 50 mg PO BEDTIME Qty: 30 3RF thiamine HCl (vitamin B1) [Vitamin B-1] 100 mg tablet 100 mg PO DAILY Qty: 30 5RF (DME) colostomy bags Misc See Rx Instructions .Route Qty: 5 5RF Rx Instructions: As directed (DME) cane Device See Rx Instructions .Route Qty: 1 0RF Rx Instructions: As directed cyanocobalamin (vitamin B-12) 3,000 mcg capsule 3,000 mcg PO DAILY 90 Days Qty: 90 0RF fluticasone propion-salmeterol [Advair HFA] 115-21 mcg/actuation HFA aerosol inhaler 2 puff inhalation Q12H Qty: 12 3RF loperamide 2 mg capsule 2 mg PO NEEDED PRN (Reason: Diarrhea) magnesium oxide 400 mg (241.3 mg magnesium) tablet 1 tab PO BID potassium chloride 10 mEq Capsule, Extended Release 10 meq PO BID oxybutynin chloride 15 mg tablet extended release 24hr 15 mg PO DAILY ferrous sulfate 325 mg (65 mg iron) tablet 325 mg PO DAILY Qty: 90 0RF rifaximin 550 mg tablet 550 mg PO BID 14 Days Qty: 28 0RF Interventions: ED Discharge Assessment Last Done: 12/28/23 15:19 Discharge Date/Time: 12/28/23 15:20 Print Language: Angolan
--- NOTE | 2023-12-28 14:23 | PC.NURSE ---
Patient has received IVF and IV pain medication per MAR, pt at this time looks visibly more comfortable, has been able to nap, is no longer crying out in pain.
[2023-12-28 14:35] VITALS: BP 106/60; PULSE 63; RESP 12; TEMP 36.1; O2SAT 99
[2023-12-28 15:19] VITALS: BP 115/65; PULSE 63; RESP 20; TEMP 36.1; O2SAT 100
== END 2023-12-28 15:20 | disposition home or self-care (01) ==
PROVIDERS: Emergency Provider Emergency Medicine; PCP Internal Medicine
DX: R10.9 Unspecified abdominal pain (principal); S69.91XA Unspecified injury of right wrist, hand and finger(s), initial encounter; B96.1 Klebsiella pneumoniae [K. pneumoniae] as the cause of diseases classified elsewhere; C18.9 Malignant neoplasm of colon, unspecified; J44.9 Chronic obstructive pulmonary disease, unspecified; Z88.0 Allergy status to penicillin; Z88.1 Allergy status to other antibiotic agents; Z88.2 Allergy status to sulfonamides; X58.XXXA Exposure to other specified factors, initial encounter; Y93.9 Activity, unspecified; Y92.9 Unspecified place or not applicable; Y99.9 Unspecified external cause status; Z03.818 Encounter for observation for suspected exposure to other biological agents ruled out
CPT/HCPCS: 0241U; 36415; 73110; 73130; 74176; 80053; 81001; 83690; 83735; 85025; 86140; 87086; 87088; 87186; 93005; 96361; 96374; 96375; 96376; 99285; J1170; J1790

== ENCOUNTER → 2023-12-28 10:45 | Outpatient (BNV) | payer MEDICARE, MEDICAID, SELFPAY | PROVIDERS: Emergency Provider Emergency Medicine; PCP Internal Medicine; Visit Provider Internal Medicine Cardiovascular Disease | DX: R94.31 Abnormal electrocardiogram [ECG] [EKG] (principal) | CPT/HCPCS: 93010 ==

== ENCOUNTER 2024-02-28 12:16 | Outpatient (AMB) | payer MEDICARE, MEDICAID, SELFPAY ==
--- NOTE | 2024-02-28 12:38 | A.OFFPC_ITS ---
Vital Signs 02/28/24 12:40 Height 5 ft Weight 134 lb 2 oz BMI 26.2 BP 130/70 Blood Pressure Location Lt brachial Position Sitting Pulse 80 Pulse Source Pulse Oximeter Pulse Oximetry (%) 96 Oxygen Delivery Method Room Air Intake Visit Reasons: patient office visit Intake Note: Patient is here for hospital discharge follow up. Patient was discharged from [facility] on 02/04/24. Plating Inspector Required: No International Exchange Coordinator: Not Required per policy Accompanied by: Self / Same As Patient Allergies erythromycin base [ERYTHROMYCIN BASE] Allergy (Severe, Verified 02/29/24 13:59) Anaphylaxis levofloxacin [From Levaquin] Allergy (Severe, Verified 02/29/24 13:59) Anaphylaxis Penicillins [PCN] Allergy (Severe, Verified 02/29/24 13:59) Anaphylaxis seafood Allergy (Severe, Verified 02/29/24 13:59) Anaphylaxis Sulfa (Sulfonamide Antibiotics) [SULFA (SULFONAMIDE ANTIBIOTICS)] Allergy (Severe, Verified 02/29/24 13:59) Anaphylaxis, vomiting Tetracyclines Allergy (Severe, Verified 02/29/24 13:59) Anaphylaxis divalproex sodium [Depakote] Allergy (Unknown, Verified 02/29/24 13:59) altered mental status gluten [GLUTEN] Allergy (Unknown, Verified 02/29/24 13:59) BLOATING,RASH rice Allergy (Verified 02/29/24 13:59) Unknown Medication List - Last Reconciled 02/29/24 by Bob Camp MD Advair HFA 115-21 mcg/actuation (fluticasone propion-salmeterol) 2 puffs inhalation Q12H NS albuterol sulfate 90 mcg/actuation 2 puffs inhalation Q6H PRN amitriptyline 25 mg PO BEDTIME 30 days apixaban (Eliquis) 5 mg PO BID 30 days cane As directed cholestyramine (with sugar) 4 gram 4 grams PO BID 30 days colostomy bags As directed [colostomy supplies As directed] cyanocobalamin (vitamin B-12) 3,000 mcg PO DAILY 90 days dicyclomine 20 mg PO BID duloxetine (Cymbalta) 60 mg PO DAILY ferrous sulfate 325 mg PO DAILY levetiracetam 750 mg PO BID 30 days levothyroxine 50 mcg PO DAILY loperamide 2 mg PO NEEDED PRN loratadine 10 mg PO DAILY magnesium oxide 1 tab PO BID midodrine 5 mg PO TID muodyueu-xkn-YU-lycopen-lutein 0.4 mg-300 mcg- 250 mcg (CertaVite Senior) 1 tab PO DAILY pantoprazole 40 mg PO DAILY potassium chloride ER 10 mEq PO BID simvastatin 40 mg PO BEDTIME Symbicort 80-4.5 mcg/actuation (budesonide-formoterol) 2 puffs inhalation BID NS thiamine HCl (vitamin B1) (Vitamin B-1) 100 mg PO DAILY trazodone 50 mg PO BEDTIME Tobacco use date assessed: 02/28/24 Fall risk assessment: 2 + Falls in past year Last assessed Fall Risk: 02/28/24 Dental Screening Dental Screen Date: 10/08/23 HPI patient office visit HPI Details 68-year-old female presents to the offic e to discuss her medical conditions. Since last office visit, patient has had multiple admissions to local hospitals for urinary tract infection. She is now scheduled for a complete cystectomy, with a stomal pouch and a new ileal conduit. This procedure will be done at [facility] in [place]. The date for the surgery has not been fixed. Patient is requesting a refill on few of her medications. Patient is on apixaban and Lamictal. She reports that the apixaban is prescribed by a assistant education director whom she saw 5 years ago. She is also seeing a neurologist for the Lamictal. [facility] Medical History (Updated 01/14/24 @ 11:24 by Hedy Whiting MD) History of pulmonary embolus (PE) Allergy to multiple antibiotics Acute suprapubic pain Neurogenic bladder, NOS COVID-19 Primary cancer of foot Pulmonary embolism Degenerative cervical disc Lumbar disc disease Celiac disease Pure hypercholesterolemia Epilepsy Hypothyroidism COPD (chronic obstructive pulmonary disease) Pseudoseizure Conversion disorder Colon cancer Paroxysmal A-fib Allergy to multiple drugs Deep vein thrombosis Surgical History History of esophagogastroduodenoscopy (EGD) History of arthroplasty History of hysterectomy (~1979) Hx of cholecystectomy S/P IVC filter History of partial surgical removal of colon History of partial gastrectomy History of colectomy History of colostomy reversal History of bladder surgery History of sinus surgery History of facial surgery History of colonoscopy Family History Mother CAD (coronary artery disease) Other Mental health disorder Social History Household Members: None Household Members Other:: 1 Housing: Apartment Do you presently have visiting nurse or other home services: Yes Alcohol intake: former Patient Tobacco Use Status: Never used Tobacco e-Cigarette/Vaping Use: Never Used Second Hand Smoke Exposure: Yes Advance Directives Date on File: 08/08/23 service: No Current occupational status: disabled Cognitive needs: Yes (cane) Hearing needs: No Vision needs: Yes (Glasses) Questionnaire Thrive Questionnaire Date Thrive assessed: 10/08/23 EARNESTINE-7 AMB Questionnaire EARNESTINE-7 Date EARNESTINE - 7 assessed: 10/08/23 Source: Developed by Drs. Ranjit Valdovinos, Anila Baldwin, Saud Allison and colleagues, with an educational lionel from [employer]. Physical exam (Primary Care) Vital Signs: Last Vital Signs Pulse 80 02/28/24 12:40 BP 130/70 02/28/24 12:40 Pulse Ox 96 02/28/24 12:40 Oxygen Delivery Method Room Air 02/28/24 12:40 BMI result Body Mass Index 26.2 Tobacco/Smoking Status: Tobacco use Status Tobacco use date assessed 02/28/24 02/28/24 12:40 Patient Tobacco Use Status Never used Tobacco 02/28/24 12:40 e-Cigarette/Vaping Use Never Used 02/28/24 12:40 Thrive Assessment: Date of Thrive Assessment Date Thrive assessed 10/08/23 02/28/24 12:40 Const General: cooperative and healthy appearing Nutritional Appearance: well nourished Orientation/consciousness: patient oriented x3 Limitations: no limitations HENMT Head: Yes normal to inspection Eyes General: appearance normal, both eyes and all related structures Neck Neck: Yes normal visual inspection Chest Chest palpation & inspection: normal palpation of entire chest wall Resp Effort & Inspection: normal respiratory effort Neuro General: patient oriented x3 Assessment and Plan Assessment & Plan (1) Complicated urinary tract infection: Code(s): N39.0 - Urinary tract infection, site not specified Plan: Once the date of surgery is fixed, a preop physical and clearance will be done. Meanwhile I will a ascertain from the pharmacy the name of the provider who has been renewing her anticoagulant and antiseizure medications. Medications: Refilled Advair HFA 115-21 mcg/actuation (fluticasone propion-salmeterol) 2 puffs inhalation Q12H 12 grams 3RF NS dicyclomine 20 mg PO BID 60 tabs 2RF ferrous sulfate 325 mg PO DAILY 90 tabs 0RF levetiracetam 750 mg PO BID 60 tabs 3RF 30 days levothyroxine 50 mcg PO DAILY 90 tabs 1RF loratadine 10 mg PO DAILY 90 tabs 1RF midodrine 5 mg PO TID 90 tabs 0RF otbliluc-fjf-HF-lycopen-lutein 0.4 mg-300 mcg- 250 mcg (CertaVite Senior) 1 tab PO DAILY 30 tabs 5RF thiamine HCl (vitamin B1) (Vitamin B-1) 100 mg PO DAILY 30 tabs 5RF colostomy bags As directed 5 ea 5RF C18.9 - Malignant neoplasm of colon, unspecified, K52.9 - Noninfective gastroenteritis and colitis, unspecified [colostomy supplies] As directed 1 ea 11RF C18.9 - Malignant neoplasm of colon, unspecified, K52.9 - Noninfective gastroenteritis and colitis, unspecified albuterol sulfate 90 mcg/actuation 2 puffs inhalation Q6H PRN 18 grams 1RF bronchospasm amitriptyline 25 mg PO BEDTIME 30 tabs 0RF 30 days apixaban (Eliquis) 5 mg PO BID 60 tabs 3RF 30 days cholestyramine (with sugar) 4 gram administer w/meal; avoid other meds within 1hr before or 4-6hr after dose 4 grams PO BID 60 ea 3RF 30 days cyanocobalamin (vitamin B-12) 3,000 mcg PO DAILY 90 caps 0RF 90 days duloxetine (Cymbalta) 60 mg PO DAILY 30 caps 3RF pantoprazole 40 mg PO DAILY 30 tabs 3RF simvastatin 40 mg PO BEDTIME 90 tabs 1RF Symbicort 80-4.5 mcg/actuation (budesonide-formoterol) 2 puffs inhalation BID 10.2 grams 3RF NS trazodone 50 mg PO BEDTIME 30 tabs 3RF Coding Level of Care Code Est Pt Level 3 (52686) Diagnoses Complicated urinary tract infection N39.0
[2024-02-28 12:40] VITALS: BP 130/70; PULSE 80; O2SAT 96; BMI 26.2
== END 2024-02-28 13:25 | disposition home or self-care (01) ==
PROVIDERS: PCP Internal Medicine; Visit Provider Internal Medicine
DX: N39.0 Urinary tract infection, site not specified (principal)
CPT/HCPCS: 99213

== ENCOUNTER 2024-06-25 12:50 | Outpatient (AMB) | payer MEDICARE, MEDICAID, SELFPAY ==
--- NOTE | 2024-06-25 13:17 | A.OFFPC_ITS ---
Vital Signs 06/25/24 13:20 Height 5 ft Weight 121 lb 8 oz BMI 23.7 BP 110/70 Blood Pressure Location Lt brachial Position Sitting Pulse 92 Pulse Source Pulse Oximeter Pulse Oximetry (%) 100 Oxygen Delivery Method Room Air Intake Visit Reasons: HD[facility]/Post Surgery Intake Note: Patient is here for hospital discharge follow up. Patient was discharged from [facility] on 04/09/24, [facility] 06/13/24. Pt is requesting for Pain Management referral ([facility] Transfer Station Operator Required: No Certified Pathology Assistant: Present Accompanied by: Sister Allergies erythromycin base [ERYTHROMYCIN BASE] Allergy (Severe, Verified 06/25/24 13:20) Anaphylaxis levofloxacin [From Levaquin] Allergy (Severe, Verified 06/25/24 13:20) Anaphylaxis Penicillins [PCN] Allergy (Severe, Verified 06/25/24 13:20) Anaphylaxis seafood Allergy (Severe, Verified 06/25/24 13:20) Anaphylaxis Sulfa (Sulfonamide Antibiotics) [SULFA (SULFONAMIDE ANTIBIOTICS)] Allergy (Severe, Verified 06/25/24 13:20) Anaphylaxis, vomiting Tetracyclines Allergy (Severe, Verified 06/25/24 13:20) Anaphylaxis divalproex sodium [Depakote] Allergy (Unknown, Verified 06/25/24 13:20) altered mental status gluten [GLUTEN] Allergy (Unknown, Verified 06/25/24 13:20) BLOATING,RASH rice Allergy (Verified 06/25/24 13:20) Unknown Tobacco use date assessed: 06/25/24 Fall risk assessment: 2 + Falls in past year Last assessed Fall Risk: 06/25/24 Dental Screening Dental Screen Date: 10/08/23 HPI HDF [facility]/Post Surgery HPI Details 68-year-old female presents to the [facility] after a recent hospitalization. She is accompanied by her sister. Patient walks in without any assist device. Patient underwent bladder surgery on April 09 at [facility] in [place]. Subsequently she has been hospitalized 9 times [facility] and the [facility]. She now has to ostomy sites. One is for the bladder and the other is for colon. Patient was recently hospitalized a few weeks ago for acute abdomen and underwent a colonoscopy and endoscopy. Patient is requesting a referral to the pain clinic. Her medication list was reviewed by me personally. [facility] Medical History History of pulmonary embolus (PE) Allergy to multiple antibiotics Acute suprapubic pain Neurogenic bladder, NOS COVID-19 Primary cancer of foot Pulmonary embolism Degenerative cervical disc Lumbar disc disease Celiac disease Pure hypercholesterolemia Epilepsy Hypothyroidism COPD (chronic obstructive pulmonary disease) Pseudoseizure Conversion disorder Colon cancer Paroxysmal A-fib Allergy to multiple drugs Deep vein thrombosis Surgical History History of endoscopy History of esophagogastroduodenoscopy (EGD) History of arthroplasty History of hysterectomy (~1979) Hx of cholecystectomy S/P IVC filter History of partial surgical removal of colon History of partial gastrectomy History of colectomy History of colostomy reversal History of bladder surgery History of sinus surgery History of facial surgery History of colonoscopy (~06/12/24) Family History Mother CAD (coronary artery disease) Other Mental health disorder Social History Household Members: None Household Members Other:: 1 Housing: Apartment Do you presently have visiting nurse or other home services: Yes Alcohol intake: former Patient Tobacco Use Status: Never used Tobacco e-Cigarette/Vaping Use: Never Used Second Hand Smoke Exposure: Yes Advance Directives Date on File: 08/08/23 service: No Current occupational status: disabled Cognitive needs: Yes (cane) Hearing needs: No Vision needs: Yes (Glasses) Questionnaire Thrive Questionnaire Date Thrive assessed: 10/08/23 Are you currently unemployed and looking for a job?: No EARNESTINE-7 AMB Questionnaire EARNESTINE-7 Date EARNESTINE - 7 assessed: 10/08/23 Source: Developed by Drs. Ranjit Valdovinos, Anila Baldwin, Saud Allison and colleagues, with an educational lionel from [employer]. Physical exam (Primary Care) Vital Signs: Last Vital Signs Pulse 92 06/25/24 13:20 BP 110/70 06/25/24 13:20 Pulse Ox 100 06/25/24 13:20 Oxygen Delivery Method Room Air 06/25/24 13:20 BMI result Body Mass Index 23.7 Tobacco/Smoking Status: Tobacco use Status Tobacco use date assessed 06/25/24 06/25/24 13:20 Patient Tobacco Use Status Never used Tobacco 06/25/24 13:19 e-Cigarette/Vaping Use Never Used 06/25/24 13:19 Thrive Assessment: Date of Thrive Assessment Date Thrive assessed 10/08/23 06/25/24 13:19 Const General: cooperative and healthy appearing Nutritional Appearance: well nourished Orientation/consciousness: patient oriented x3 Limitations: no limitations HENMT Head: Yes normal to inspection Eyes General: appearance normal, both eyes and all related structures Neck Neck: Yes normal visual inspection Chest Chest palpation & inspection: normal palpation of entire chest wall Resp Effort & Inspection: normal respiratory effort GI Other: Colostomy bag and urostomy bag in place. Neuro General: patient oriented x3 Coding Level of Care Code Est Pt Level 4 (94033) Complex EM visit Add On G2211 Diagnoses Chronic abdominal pain R10.9; G89.29 Nonintractable epilepsy without status epilepticus, unspecified epilepsy type G40.909 Epilepsy type: unspecified Intractability: not intractable Status epilepticus: without status epilepticus COPD (chronic obstructive pulmonary disease) J44.9 Assessment & Plan Assessment & Plan (1) Chronic abdominal pain: Code(s): R10.9 - Unspecified abdominal pain; G89.29 - Other chronic pain Category: Medical Plan: Pain management referral has been made. (2) Epilepsy: Code(s): G40.909 - Epilepsy, unspecified, not intractable, without status epilepticus Category: Medical Qualifiers: Epilepsy type: unspecified Intractability: not intractable Status epilepticus: without status epilepticus Qualified Code(s): G40.909 - Epilepsy, unspecified, not intractable, without status epilepticus Plan: Patient is taking Lamictal. (3) COPD (chronic obstructive pulmonary disease): Code(s): J44.9 - Chronic obstructive pulmonary disease, unspecified Category: Medical Plan: Condition is stable. Plan Patient has declined a mammogram. Patient obtains care from multiple facilities and is on medications from multiple physicians. Medications: Refilled cyanocobalamin (vitamin B-12) 3,000 mcg PO DAILY 90 days 90 caps 0RF ferrous sulfate 325 mg PO DAILY 90 tabs 0RF
[2024-06-25 13:20] VITALS: BP 110/70; PULSE 92; O2SAT 100; BMI 23.7
== END 2024-06-25 14:39 | disposition home or self-care (01) ==
PROVIDERS: PCP Internal Medicine; Visit Provider Internal Medicine
DX: R10.9 Unspecified abdominal pain (principal); G89.29 Other chronic pain; G40.909 Epilepsy, unspecified, not intractable, without status epilepticus; J44.9 Chronic obstructive pulmonary disease, unspecified

== ENCOUNTER → 2024-06-25 12:50 | Outpatient (BNVA) | payer MEDICARE, MEDICAID, SELFPAY | PROVIDERS: PCP Internal Medicine; Visit Provider Internal Medicine | DX: R10.9 Unspecified abdominal pain (principal); G89.29 Other chronic pain; J44.9 Chronic obstructive pulmonary disease, unspecified | CPT/HCPCS: 99212 ==

== ENCOUNTER 2024-07-02 09:06 | Outpatient (AMB) | payer MEDICARE, MEDICAID, SELFPAY ==
[2024-07-02 09:37] VITALS: BP 113/76; PULSE 106; RESP 14; O2SAT 100; BMI 23.6
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
== END 2024-07-02 10:02 | disposition home or self-care (01) ==
PROVIDERS: PCP Internal Medicine; Referring Provider Internal Medicine; Visit Provider Anesthesiology
DX: F44.9 Dissociative and conversion disorder, unspecified (principal); R10.9 Unspecified abdominal pain; G89.29 Other chronic pain; C18.9 Malignant neoplasm of colon, unspecified; M54.50 Low back pain, unspecified; K52.9 Noninfective gastroenteritis and colitis, unspecified
CPT/HCPCS: 99213

== ENCOUNTER → 2024-07-02 09:06 | Outpatient (BNVA) | payer MEDICARE, MEDICAID, SELFPAY | PROVIDERS: PCP Internal Medicine; Referring Provider Internal Medicine; Visit Provider Anesthesiology | DX: R10.9 Unspecified abdominal pain (principal); G89.29 Other chronic pain; C18.9 Malignant neoplasm of colon, unspecified; K52.9 Noninfective gastroenteritis and colitis, unspecified; M54.50 Low back pain, unspecified; Z93.3 Colostomy status; Z93.6 Other artificial openings of urinary tract status | CPT/HCPCS: 99212 ==

== ENCOUNTER 2024-08-20 12:09 | Outpatient (AMB) | payer MEDICARE, MEDICAID, SELFPAY ==
--- NOTE | 2024-08-20 12:33 | A.OFFPC_ITS ---
Vital Signs 08/20/24 12:37 Height 5 ft Weight 121 lb 4 oz BMI 23.7 BP 112/68 Blood Pressure Location Lt brachial Position Sitting Pulse 94 Pulse Source Pulse Oximeter Pulse Oximetry (%) 96 Oxygen Delivery Method Room Air Intake Visit Reasons: [facility] 08/01 fell lots of times Car Tester Required: No Accompanied by: Self / Same As Patient Allergies erythromycin base [ERYTHROMYCIN BASE] Allergy (Severe, Verified 08/20/24 12:38) Anaphylaxis levofloxacin [From Levaquin] Allergy (Severe, Verified 08/20/24 12:38) Anaphylaxis Penicillins [PCN] Allergy (Severe, Verified 08/20/24 12:38) Anaphylaxis seafood Allergy (Severe, Verified 08/20/24 12:38) Anaphylaxis Sulfa (Sulfonamide Antibiotics) [SULFA (SULFONAMIDE ANTIBIOTICS)] Allergy ( Severe, Verified 08/20/24 12:38) Anaphylaxis, vomiting Tetracyclines Allergy (Severe, Verified 08/20/24 12:38) Anaphylaxis divalproex sodium [Depakote] Allergy (Unknown, Verified 08/20/24 12:38) altered mental status gluten [GLUTEN] Allergy (Unknown, Verified 08/20/24 12:38) BLOATING,RASH rice Allergy (Verified 08/20/24 12:38) Unknown Tobacco use date assessed: 06/25/24 Fall risk assessment: 2 + Falls in past year Last assessed Fall Risk: 08/20/24 Dental Screening Dental Screen Date: 10/08/23 HPI HPI Comments History of Present Illness Details 68 y/o female patient who presents to [facility] for HDF. She was admitted at [facility] on 07/27/24 and discharged home on 08/01/24 due to Orthostatic hypotension. She has had multiple Falls in the past month due to Right lower extremity weakness. She is receiving Physical therapy and OT. [facility] Medical History History of pulmonary embolus (PE) Allergy to multiple antibiotics Acute suprapubic pain Neurogenic bladder, NOS COVID-19 Primary cancer of foot Pulmonary embolism Degenerative cervical disc Lumbar disc disease Celiac disease Pure hypercholesterolemia Epilepsy Hypothyroidism COPD (chronic obstructive pulmonary disease) Pseudoseizure Conversion disorder Colon cancer Paroxysmal A-fib Allergy to multiple drugs Deep vein thrombosis Surgical History History of endoscopy History of esophagogastroduodenoscopy (EGD) History of arthroplasty History of hysterectomy (~1979) Hx of cholecystectomy S/P IVC filter History of partial surgical removal of colon History of partial gastrectomy History of colectomy History of colostomy reversal History of bladder surgery History of sinus surgery History of facial surgery History of colonoscopy (~06/12/24) Family History Mother CAD (coronary artery disease) Other Mental health disorder Social History Household Members: None Household Members Other:: 1 Housing: Apartment Do you presently have visiting nurse or other home services: Yes Alcohol intake: former Patient Tobacco Use Status: Never used Tobacco e-Cigarette/Vaping Use: Never Used Second Hand Smoke Exposure: Yes Advance Directives Date on File: 08/08/23 service: No Current occupational status: disabled Cognitive needs: Yes (cane) Hearing needs: No Vision needs: Yes (Glasses) Questionnaire Thrive Questionnaire Date Thrive assessed: 10/08/23 Are you currently unemployed and looking for a job?: No EARNESTINE-7 AMB Questionnaire EARNESTINE-7 Date EARNESTINE - 7 assessed: 10/08/23 Source: Developed by Drs. Ranjit Valdovinos, Anila Baldwin, Saud Allison and colleagues, with an educational lionel from [employer]. Review of Systems Const All systems reviewed & are unremarkable except as noted in HPI and below Physical exam (Primary Care) Vital Signs: Last Vital Signs Pulse 94 08/20/24 12:37 BP 112/68 08/20/24 12:37 Pulse Ox 96 08/20/24 12:37 Oxygen Delivery Method Room Air 08/20/24 12:37 BMI result Body Mass Index 23.7 Tobacco/Smoking Status: Tobacco use Status Tobacco use date assessed 06/25/24 08/20/24 12:33 Patient Tobacco Use Status Never used Tobacco 08/20/24 12:33 e-Cigarette/Vaping Use Never Used 08/20/24 12:33 Thrive Assessment: Date of Thrive Assessment Date Thrive assessed 10/08/23 08/20/24 12:33 Const General: cooperative Orientation/consciousness: patient oriented x3 Resp Effort & Inspection: normal respiratory effort Auscultation: clear to auscultation bilaterally Cardio Heart sounds: S1 normal heart sound present and S2 normal heart sound present Neuro General: patient oriented x3 Office Procedures Flu Questionnaire Does the patient have a severe egg allergy?: No Immunizations Fluarix Triv [id number] (PF) 45 mcg (15 mcg x 3)/0.5 mL IM syringe Performing Provider: Genesis White NP [place] [facility] [place] [facility] Documented (not given) by: RADHA Rodriguez on 08/20/24 12:37 Reason Not Given: Received Previously Coding Level of Care Code Est Pt Level 4 (09993) Diagnoses Recurrent falls R29.6 Time Spent (min) 20 Assessment & Plan Assessment & Plan (1) Recurrent falls: Code(s): R29.6 - Repeated falls Plan: Pt is already receiving PT and OT. Orders: Orders Influenza [id number] Immunization Today Z23 - Encounter for immunization
[2024-08-20 12:37] VITALS: BP 112/68; PULSE 94; O2SAT 96; BMI 23.7
== END 2024-08-20 13:52 | disposition home or self-care (01) ==
PROVIDERS: PCP Internal Medicine; Visit Provider Nurse Practitioner Family
DX: R29.6 Repeated falls (principal); Z23 Encounter for immunization

== ENCOUNTER → 2024-08-20 12:09 | Outpatient (BNVA) | payer MEDICARE, MEDICAID, SELFPAY | PROVIDERS: PCP Internal Medicine; Visit Provider Nurse Practitioner Family | DX: R29.6 Repeated falls (principal) | CPT/HCPCS: 90471; 99212 ==

== ENCOUNTER 2024-10-08 15:14 | Outpatient (AMB) | payer MEDICARE, MEDICAID, SELFPAY ==
[2024-10-08 15:19] VITALS: BP 102/64; PULSE 115; TEMP 36.1; O2SAT 96; BMI 23.9
--- NOTE | 2024-10-08 15:19 | A.OFFPC_ITS ---
Vital Signs 10/08/24 15:19 Height 5 ft Weight 122 lb 4 oz BMI 23.9 BP 102/64 Blood Pressure Location Lt brachial Position Sitting Pulse 115 H Pulse Source Pulse Oximeter Temp 96.9 F Temp Source Temporal Artery Scan Pulse Oximetry (%) 96 Oxygen Delivery Method Room Air Intake Visit Reasons: 3 MONTH FOLLOW UP Residential Solar Consultant Required: No Accompanied by: Self / Same As Patient Allergies erythromycin base [ERYTHROMYCIN BASE] Allergy (Severe, Verified 10/08/24 19:16) Anaphylaxis levofloxacin [From Levaquin] Allergy (Severe, Verified 10/08/24 15:19) Anaphylaxis Penicillins [PCN] Allergy (Severe, Verified 10/08/24 15:19) Anaphylaxis seafood Allergy (Severe, Verified 10/08/24 15:19) Anaphylaxis Sulfa (Sulfonamide Antibiotics) [SULFA (SULFONAMIDE ANTIBIOTICS)] Allergy (Severe, Verified 10/08/24 15:19) Anaphylaxis, vomiting Tetracyclines Allergy (Severe, Verified 10/08/24 15:19) Anaphylaxis divalproex sodium [Depakote] Allergy (Unknown, Verified 10/08/24 15:19) altered mental status gluten [GLUTEN] Allergy (Unknown, Verified 10/08/24 15:19) BLOATING,RASH rice Allergy (Verified 10/08/24 15:19) Unknown Medication List - Last Reconciled 10/08/24 by RONAL Christensen Advair HFA 115-21 mcg/actuation (fluticasone propion-salmeterol) 2 puffs inhalation Q12H NS albuterol sulfate 90 mcg/actuation 2 puffs inhalation Q6H PRN amitriptyline 25 mg PO BEDTIME 30 days apixaban (Eliquis) 5 mg PO BID 30 days cane As directed cholestyramine (with sugar) 4 gram 4 grams PO BID 30 days colostomy bags As directed [colostomy supplies As directed] cyanocobalamin (vitamin B-12) 3,000 mcg PO DAILY 90 days duloxetine (Cymbalta) 60 mg PO DAILY ferrous sulfate 325 mg PO DAILY hydromorphone mg PO levetiracetam mg PO levetiracetam 750 mg PO BID 30 days levothyroxine 50 mcg PO DAILY loperamide 2 mg PO NEEDED PRN loratadine 10 mg PO DAILY magnesium oxide 1 tab PO BID midodrine 5 mg PO TID irsfgaxf-fgq-PS-lycopen-lutein 0.4 mg-300 mcg- 250 mcg (CertaVite Senior) 1 tab PO DAILY pantoprazole 40 mg PO DAILY potassium chloride ER 10 mEq PO BID simvastatin 40 mg PO BEDTIME Symbicort 80-4.5 mcg/actuation (budesonide-formoterol) 2 puffs inhalation BID NS thiamine HCl (vitamin B1) (Vitamin B-1) 100 mg PO DAILY trazodone 50 mg PO BEDTIME Tobacco use date assessed: 10/08/24 Fall risk assessment: 2 + Falls in past year Last assessed Fall Risk: 10/08/24 Dental Screening Dental Screen Date: 10/08/24 Did you have a dental visit in the last 12 months?: Yes Did you have a dental problem in the last 6 months where you did not have access to dental care?: No Was dental information given to patient?: Patient has dentist HPI 3 MONTH FOLLOW UP HPI Details Patient is a 63-year-old female with significant past medical history of COPD, chronic abdominal pain, non intractable epilepsy, colon ca/w complete colon resection with ileostmy, bladder ca/w s/p urostomy. The patient is presenting today for a follow up appointment She reports that all her bones hurt and she has not have a bone scan in over 8 years Reports that it started in her shins first goes into her feet and upper legs She would also like her thyroid levels to be checked because she has a lot of energy and can not slow down She reports that she has been at [facility] for 4 days for UTI/stomach inflammation She reports that there are plans to do an upper and lower gi series She reports that she will be seeing the surgeon tomorrow who removed her bladder cancer, Dr. Celis She reports that her breathing has not gotten better even with all the inhalers that she takes She reports that she has dyspnea with exertion and sometimes this wakes her up at night Patient also reports left shoulder pain that she describes as chronic deterioration The patient also verbalized not wanting to go to [facility] pain clinic- they only want to push needles in your body and I do like that stuff Chart review: the had multiple ER visit at [facility] (09/10/2024, 09/21/2024, 09/25/2024). All visits had been similar complaints of abdominal pain that is not being controlled by p.o. medications. Patient was admitted for pain management and for ID input. Per note, the patient's suspect UTIs seemed to be colonization due to the collection of urine from her urostomy. The patient had been treated with antibiotics multiple times without good result. She is also allergic to multiple antibiotics. As a result, she has been treated with broad- spectrum antibiotics (carbapenem and Meropenem). The patient also had a MRCP: Showing biliary and pancreatic duct dilation without obstruction. Each time the patient was sent home with p.o. Dilaudid, which she states have not helped her pain. [facility] Medical History (Updated 10/08/24 @ 20:54 by RONAL Christensen) History of pulmonary embolus (PE) Allergy to multiple antibiotics Acute suprapubic pain Neurogenic bladder, NOS COVID-19 Primary cancer of foot Pulmonary embolism Degenerative cervical disc Lumbar disc disease Celiac disease Pure hypercholesterolemia Epilepsy Hypothyroidism COPD (chronic obstructive pulmonary disease) Pseudoseizure Conversion disorder Colon cancer Paroxysmal A-fib Allergy to multiple drugs Deep vein thrombosis Surgical History History of endoscopy History of esophagogastroduodenoscopy (EGD) History of arthroplasty History of hysterectomy (~1979) Hx of cholecystectomy S/P IVC filter History of partial surgical removal of colon History of partial gastrectomy History of colectomy History of colostomy reversal History of bladder surgery History of sinus surgery History of facial surgery History of colonoscopy (~06/12/24) Family History Mother CAD (coronary artery disease) Other Mental health disorder Social History Household Members: None Household Members Other:: 1 Housing: Apartment Do you presently have visiting nurse or other home services: Yes Alcohol intake: former Patient Tobacco Use Status: Never used Tobacco e-Cigarette/Vaping Use: Never Used Second Hand Smoke Exposure: Yes Advance Directives Date on File: 08/08/23 service: No Current occupational status: disabled Cognitive needs: Yes (cane) Hearing needs: No Vision needs: Yes (Glasses) Questionnaire PHQ-9 Over the last 2 weeks, how often have you been bothered by any of the following problems? 1. Little interest or pleasure in doing things: not at all 2. Feeling down, depressed, or hopeless: not at all 3. Trouble falling or staying asleep, or sleeping too much: not at all 4. Feeling tired or having little energy: not at all 5. Poor appetite or overeating: not at all 6. Feeling bad about yourself - or that you are a failure or have let yourself or your family down: not at all 7. Trouble concentrating on things, such as reading the newspaper or watching television: not at all 8. Moving or speaking so slowly that other people could have noticed. Or the opposite - being so fidgety or restless that you have been moving around a lot more than usual: not at all 9. Thoughts that you would be better off or of hurting yourself in some way: not at all Total score: 0 Depression Screening Interpretation: Negative Depression Screening Done: Yes 51465 - PHQ-9 Billing: Yes Source: Developed by Drs. Ranjit Valdovinos, Anila Baldwin, Saud Allison and colleagues, with an educational lionel from [employer]. Thrive Questionnaire Date Thrive assessed: 10/08/24 I am a: Patient What is your living situation today?: I have a steady place to live Within the past 12 months, did the food you bought not last and you didn't have the money to get more?: Never true Within the past 12 months, did you worry whether your food would run out before you got money to buy more?: Never true Do you have trouble paying for medicines?: No Do you have trouble getting transportation to medical appointments?: No Do you have trouble paying your heating and electricity bill?: No Do you have trouble taking care of your child, family member or friend?: No Do you have trouble with day-to-day activities such as bathing, preparing meals, shopping, managing finances, etc.?: No Are you currently unemployed and looking for a job?: No Are you interested in more education?: No Please select the resources that you would like help with: None Currently or been in a relationship where the following occur: No concerns reported THRIVE Score: 0 AUDIT C Alcohol Use Questionnaire (AUDIT-C) 1. How often do you have a drink containing alcohol?: Never 3. How often do you have six or more drinks on one occasion?: Never Total Score: 0 Score Reviewed/Action Taken: Yes EARNESTINE-7 AMB Questionnaire EARNESTINE-7 Date EARNESTINE - 7 assessed: 10/08/24 Feeling nervous, anxious, or on edge: 0 = Not at all Not being able to stop or control worryin = Not at all Worrying too much about different things: 0 = Not at all Trouble relaxin = Not at all Being so restless that it is hard to sit still: 0 = Not at all Becoming easily annoyed or irritable: 0 = Not at all Feeling afraid as if something awful might happen: 0 = Not at all Total EARNESTINE-7 score (0-4 normal; 5-9 mild; 10-14 moderate; 15-21 severe): 0 Source: Developed by Drs. Ranjit Valdovinos, Anila Baldwin, Saud Allison and colleagues, with an educational lionel from [employer]. EARNESTINE-7 Assessment Billing EARNESTINE-7 Assessment Tool: EARNESTINE-7 Assessment 77982 Review of Systems Const Details: Denies chills, Denies fatigue, Denies fever(s), Denies headache(s) and Denies weakness HEENT Denies change in vision, Denies dizziness, Denies headache(s), Denies hearing loss, Denies nasal congestion, Denies sinus pain, Denies sinus pressure and Denies sore throat Card Denies chest pain, +lightheadedness when rising quickly,+dyspnea with exertion and Denies other (palpitations), Resp Denies cough, reports dyspnea with exertion, orthopnea-waking her up intermittently and Denies wheezing GI +epigastric pain, Denies melena, Denies hematochezia, Denies change in bowel habits, Denies nausea Denies hematuria and Denies dysuria Musc Denies abnormal gait, bilateral lower legs bone pain, +reports left shoulder pain. Denies numbness and Denies tingling Skin/Breast Denies rash, Denies unusual bruising and Denies wounds Neuro Denies abnormal gait, Denies dizziness, Denies headache(s), Denies memory loss, Denies numbness, Denies Sensory deficit (Neuro), Denies tingling and Denies weakness Psych Denies anxiety, Denies depression and Denies memory loss Endo Denies cold intolerance, Denies fatigue, Denies heat intolerance, Denies polydipsia and Denies polyuria Mesfin/Lymph Denies easy bleeding and Denies easy bruising Aller/Immun Denies wheezing Physical exam (Primary Care) Vital Signs: Last Vital Signs Temp 96.9 F 10/08/24 15:19 Pulse 115 H 10/08/24 15:19 BP 102/64 10/08/24 15:19 Pulse Ox 96 10/08/24 15:19 Oxygen Delivery Method Room Air 10/08/24 15:19 BMI result Body Mass Index 23.9 Tobacco/Smoking Status: Tobacco use Status Tobacco use date assessed 10/08/24 10/08/24 15:26 Patient Tobacco Use Status Never used Tobacco 10/08/24 15:26 e-Cigarette/Vaping Use Never Used 10/08/24 15:26 PHQ-9: PHQ-9 Score PHQ-9: Total score 0 10/08/24 15:36 Depression Screening Interpretation: Negative Thrive Assessment: Date of Thrive Assessment Date Thrive assessed 10/08/24 10/08/24 15:26 Currently or been in a relationship where the following occur: No concerns reported Const Other: General: no acute distress, well developed, alert and awake Nutritional Appearance: well nourished Orientation/consciousness: patient oriented x3 HENMT Head: Yes normocephalic and Yes atraumatic Mouth: Normal oral and palatal mucosa present and moist mucous membranes Eyes Pupils: Equal, round and reactive pupils present and Pupil accommodation reflex normal EOM: EOMs intact bilaterally Neck Neck: Yes normal visual inspection, Yes no lymphadenopathy and Yes trachea midline Thyroid: Thyroid normal Lymphatic: no lymphadenopathy noted Chest Chest palpation & inspection: normal inspection of the chest Resp Effort & Inspection: normal respiratory effort Auscultation: clear to auscultation bilaterally Cardio Rate: regular rate Rhythm: regular rhythm Heart sounds: S1 normal heart sound present, S2 normal heart sound present, no gallops, no murmurs and no rubs GI Palpation (GI): epigastic tenderness to palpation, abdomen soft to palpation other: colostomy in place Auscultation: normal bowel sounds General: Yes no CVA tenderness other: urostomy Back/Spine/Pelvis Back: no CVA tenderness Cervical Spine: cervical ROM normal and No Cervical spine tenderness shoulder: left shoulder pain/weakness/decreased ROM Skin General: warm and dry. Normal skin color. Normal skin turgor Lesions: no lesions Nails: normal Neuro General: patient oriented x3, gait normal Cranial nerves: Yes Equal, round and reactive pupils present Cognition (Neuro): normal cognition Gait exam (Neuro): Normal gait present Extrem General: Yes normal to inspection, No edema and No calf tenderness Psych Appearance: grossly normal Affect: normal affect Attitude: cooperative Thought process: Normal thought process present Coding Level of Care Code Est Pt Level 4 (15982) Diagnoses Chronic left shoulder pain M25.512; G89.29 Chronicity: chronic Complicated urinary tract infection N39.0 Abdominal wall pain R10.9 Chronic obstructive pulmonary disease, unspecified COPD type J44.9 COPD type: unspecified COPD Chronic epigastric pain R10.13; G89.29 Pure hypercholesterolemia E78.00 Acquired hypothyroidism E03.9 Hypothyroidism type: acquired Pseudoseizure F44.5 Anemia, unspecified type D64.9 Anemia type: unspecified type Additional Codes EARNESTINE-7 Assessment Billing - EARNESTINE-7 Assessment Tool: EARNESTINE-7 Assessment 93176 ([id number]) PHQ-9 - 29777 - PHQ-9 Billing: Yes ([id number]) Assessment & Plan Assessment & Plan (1) Left shoulder pain: Code(s): M25.512 - Pain in left shoulder Category: Medical Qualifiers: Chronicity: chronic Qualified Code(s): M25.512 - Pain in left shoulder; G89.29 - Other chronic pain Plan: Patient reports ongoing left shoulder deteriorated, pain with movement in range of motion limitation Left shoulder x-ray ordered-we will advise when resulted (2) Complicated urinary tract infection: Code(s): N39.0 - Urinary tract infection, site not specified Category: Medical Plan: According to ED note-this issue seems to be a colonization because of stagnant urine in the urostomy Reinforced emptying urostomy frequently and increasing hydration (3) Abdominal wall pain: Code(s): R10.9 - Unspecified abdominal pain Category: Surgical Plan: Follow up with GI as scheduled (4) COPD (chronic obstructive pulmonary disease): Code(s): J44.9 - Chronic obstructive pulmonary disease, unspecified Category: Medical Qualifiers: COPD type: unspecified COPD Qualified Code(s): J44.9 - Chronic obstructive pulmonary disease, unspecified Plan: Uncontrolled: Continue Symbicort and rescue inhaler. Will refer to pulmonology (5) Chronic epigastric pain: Code(s): R10.13 - Epigastric pain; G89.29 - Other chronic pain Category: Medical Plan: Continue pantoprazole 40 mg daily Follow up with GI as scheduled (6) Pure hypercholesterolemia: Code(s): E78.00 - Pure hypercholesterolemia, unspecified Category: Medical Plan: Blood work ordered for patient to do NORMA Continue simvastatin 40 mg QD at this time (7) Hypothyroidism: Code(s): E03.9 - Hypothyroidism, unspecified Category: Medical Qualifiers: Hypothyroidism type: acquired Qualified Code(s): E03.9 - Hypothyroidism, unspecified Plan: Blood work ordered the patient norma Continue levothyroxine 50 mcg daily (8) Pseudoseizure: Code(s): F44.5 - Conversion disorder with seizures or convulsions Category: Medical Plan: Continue levetiracetam 750 mg b.i.d. Follow up with Neurology as scheduled (9) Anemia: Code(s): D64.9 - Anemia, unspecified Category: Medical Qualifiers: Anemia type: unspecified type Qualified Code(s): D64.9 - Anemia, unspecified Plan: Continue ferrous sulfate 325 mg daily Labs ordered to be done norma Plan I personally spent 39 minutes reviewing the chart, caring for the patient and documenting after the visit. Orders: Orders IRON PROFILE 10/08/24 D64.9 - Anemia, unspecified, E03.9 - Hypothyroidism, unspecified, J44.9 - Chronic obstructive pulmonary disease, unspecified, K52.9 - Noninfective gastroenteritis and colitis, unspecified, K58.0 - Irritable bowel syndrome with diarrhea, K90.9 - Intestinal malabsorption, unspecified, M54.16 - Radiculopathy, lumbar region, N39.0 - Urinary tract infection, site not specified, Z79.01 - long-term (current) use of 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, Z85.028 - Personal history of other malignant neoplasm of stomach, Z85.038 - Personal history of other malignant neoplasm of large intestine Lipid Panel 10/08/24 D64.9 - Anemia, unspecified, E03.9 - Hypothyroidism, unspecified, J44.9 - Chronic obstructive pulmonary disease, unspecified, K52.9 - Noninfective gastroenteritis and colitis, unspecified, K58.0 - Irritable bowel syndrome with diarrhea, K90.9 - Intestinal malabsorption, unspecified, M54.16 - Radiculopathy, lumbar region, N39.0 - Urinary tract infection, site not specified, 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, Z85.028 - Persona l history of other malignant neoplasm of stomach, Z85.038 - Personal history of other malignant neoplasm of large intestine Vitamin B12 and Folate 10/08/24 D64.9 - Anemia, unspecified, E03.9 - Hypothyroidism, unspecified, J44.9 - Chronic obstructive pulmonary disease, unspecified, K52.9 - Noninfective gastroenteritis and colitis, unspecified, K58.0 - Irritable bowel syndrome with diarrhea, K90.9 - Intestinal malabsorption, unspecified, M54.16 - Radiculopathy, lumbar region, N39.0 - Urinary tract infection, site not specified, Z79.01 - long-term (current) use of 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, Z85.028 - Personal history of other malignant neoplasm of stomach, Z85.038 - Personal history of other malignant neoplasm of large intestine Vitamin D 25-OH Total 10/08/24 D64.9 - Anemia, unspecified, E03.9 - Hypothyroidism, unspecified, J44.9 - Chronic obstructive pulmonary disease, unspecified, K52.9 - Noninfective gastroenteritis and colitis, unspecified, K 58.0 - Irritable bowel syndrome with diarrhea, K90.9 - Intestinal malabsorption, unspecified, M54.16 - Radiculopathy, lumbar region, N39.0 - Urinary tract infection, site not specified, 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, Z85.028 - Personal history of other malignant neoplasm of stomach, Z85.038 - Personal history of other malignant neoplasm of large intestine XR shoulder LT min 2V 10/08/24 M25.512 - Pain in left shoulder Free T4 (Free Thyroxine) 10/08/24 E03.9 - Hypothyroidism, unspecified Complete Blood Count Auto Diff 10/08/24 D64.9 - Anemia, unspecified, E03.9 - Hypothyroidism, unspecified, J44.9 - Chronic obstructive pulmonary disease, unspecified, K52.9 - Noninfective gastroenteritis and colitis, unspecified, K58.0 - Irritable bowel syndrome with diarrhea, K90.9 - Intestinal malabsorption, unspecified, M54.16 - Radiculopathy, lumbar region, N39.0 - Urinary tract infection, site not specified, Z79.01 - long-term (current) use of 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, Z85.028 - Personal history of other malignant neoplasm of stomach, Z85.038 - Personal history of other malignant neoplasm of large intestine Comprehensive [place]. 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, Z85.028 - Personal history of other malignant neoplasm of stomach, Z85.038 - Personal history of other malignant neoplasm of large intestine TSH reflex Free T4 10/08/24 D64.9 - Anemia, unspecified, E03.9 - Hypothyroidism, unspecified, J44.9 - Chronic obstructive pulmonary disease, unspecified, K52.9 - Noninfective gastroenteritis and colitis, unspecified, K58.0 - Irritable bowel syndrome with diarrhea, K90.9 - Intestinal malabsorption, unspecified, M54.16 - Radiculopathy, lumbar region, N39.0 - Urinary tract infection, site not specified, 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, Z85.028 - Personal history of other malignant neoplasm of stomach, Z85.038 - Personal history of other malignant neoplasm of large intestine UA CC w/rflx Micro + Cult 10/08/24 D64.9 - Anemia, unspecified, E03.9 - Hypothyroidism, unspecified, J44.9 - Chronic obstructive pulmonary disease, unspecified, K52.9 - Noninfective gastroenteritis and colitis, unspecified, K58.0 - Irritable bowel syndrome with diarrhea, K90.9 - Intestinal malabsorption, unspecified, M54.16 - Radiculopathy, lumbar region, N39.0 - Urinary tract infection, site not specified, 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
--- OUTSIDE RECORDS SUMMARY | 2024-10-08 18:01 | XMS_ITS | Clinical Summary ---
Author Organization Unknown Care Team Providers Care Digital Forensics Investigator Name Role Phone FEDERICO PAUL, MIKO Unavailable Unavailab Jay SANTOS, [place] Unavailable Unavailable LINO KIMN, LUI Unavailable Unavailable JANUARY PT, DONN Unavailable Unavailable OBINNA DIRECTOR MARKETING COMMUNICATIONS, JOSÉ ANTONIO Unavailable Unavailable Payers Payer Name Policy Type Policy Number Effective Date Expira tion Date ZOHAIBSoniaABRAZO [facility]ibertyLibertyДМИТРИЙ[facility] [id number] Problems Condition Name Condition Details Condition Category Status Onset Date Resolution Date Last Treatment Date Treating Clinician Comments COVID-19 Active 2023-09 2- 00:00: 00 OTHER CHRONIC PAIN Active 09-24 00:00: 00 DORSALGIA, UNSPECIFIED Active 09-24 00:00: 00 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 Active 09-24 00:00: 00 GASTROPARESI S Active 09-24 00:00: 00 NEUROMUSCULA R DYSFUNCTION OF BLADDER, UNSPECIFIED Active - 00:00: 00 WEAKNESS Active 2023-09 2- 00:00: 00 ATHSCL HEART DISEASE OF [place] CORONARY ARTERY W/O ANG PCTRS Active 09-24 00:00: 00 CHRONIC OBSTRUCTIVE PULMONARY DISEASE, UNSPECIFIED Active 09-24 00:00: 00 HYPOTHYROIDI SM, UNSPECIFIED Active 09-24 00:00: 00 HYPERLIPIDEM IA, UNSPECIFIED Active 09-24 00:00: 00 EPILEPSY, UNSP, NOT INTRACTABLE, WITHOUT STATUS EPILEPTICUS Active - 00:00: 00 DEPRESSION, UNSPECIFIED Active - 00:00: 00 INSOMNIA, UNSPECIFIED Active - 00:00: 00 UNSPECIFIED CYSTOSTOMY STATUS Active 09-24 00:00: 00 COLOSTOMY STATUS Active 09-24 00:00: 00 DEPENDENCE ON SUPPLEMENTAL OXYGEN Active 09-24 00:00: 00 PRSNL HX OF TIA (TIA), AND CEREB INFRC W/O RESID DEFICITS Active 09-24 00:00: 00 PERSONAL HISTORY OF PULMONARY EMBOLISM Active 09-24 00:00: 00 PERSONAL HISTORY OF MALIGNANT NEOPLASM OF LARGE INTESTINE Active 09-24 00:00: 00 Allergies, Adverse Reactions, Alerts Allergy Name Allergy Type Status Severity Reaction(s) Onset Date Inactive Date Treating Clinician Comments GABAPENTIN Propensity to adverse reactions Active 2023-09 13:12: 12 DEPAKOTE Propensity to adverse reactions Active 2023-09 13:12: 18 GLUTEN Propensity to adverse reactions Active 2023-09 13:12: 24 LEVAQUIN ... Propensity to adverse reactions Active 2023-09 13:12: 34 WHITE RICE Propensity to adverse reactions Active 2023-09 13:12: 41 FISH PRODUCT DERIVATIVES Propensity to adverse reactions Active 2023-09 13:12: 48 AMOXICILLIN. .= Propensity to adverse reactions Active 2023-09 13:12: 58 CEFPODOXIME Propensity to adverse reactions Active 2023-09 13:13: 10 CLINDAMYCIN Propensity to adverse reactions Active 2023-09 13:13: 30 CODEINE Propensity to adverse reactions Active 2023-09 13:13: 37 DOXYCYCLINE Propensity to adverse reactions Active 2023-09 13:13: 47 ERYTHROMYCIN Propensity to adverse reactions Active 2023-09 13:13: 55 NITROFURANTO IN Propensity to adverse reactions Active 2023-09 13:14: 04 OXACILLIN Propensity to adverse reactions Active 2023-09 13:14: 13 PENICILLINS Propensity to adverse reactions Active 2023-09 13:14: 37 RIFAMPIN Propensity to adverse reactions Active 2023-09 13:14: 48 SULFA DRUGS... Propensity to adverse reactions Active 2023-09 13:15: 10 TETRACYCLINE ANALOGUES Propensity to adverse reactions Active 2023-09 13:15: 19 VANCOMYCIN Propensity to adverse reactions Active 2023-09 13:15: 26 Medications Ordered Medication Name Filled Medication Name Start Date Stop Date Current Medication? Ordering Clinician Indication Dosage Frequency Signature (SIG) Comments Components hydromorpho ne 2 mg tablet 2023-09 00:00: 00 09-11 00:00 :00 No [id number] Per instruc tions Per instructio ns (route: oral) Med Classific ation: Analgesic , Anti-infl ammatory or Antipyret ic ondansetron HCl 4 mg tablet 2023-09 00:00: 00 09-11 00:00 :00 No [id number] Per instruc tions Per instructio ns (route: oral) Med Classific ation: Gastroint estinal Therapy Agents albuterol sulfate HFA 90 mcg/actuati on aerosol inhaler 2023-09 00:00: 00 09-11 00:00 :00 No [id number] Per instruc tions Per instructio ns (route: inhalation ) Med Classific ation: Respirato ry Therapy Agents levetiracet am 100 mg/mL oral solution 2023-09 00:00: 00 09-11 00:00 :00 No [id number] Per instruc tions Per instructio ns (route: oral) Med Classific ation: Central Nervous System Agents albuterol sulfate HFA 90 mcg/actuati on aerosol inhaler 2023-09 00:00: 00 Yes [id number] WHEEZING 1 puff EVERY 6 HOURS 1 puff EVERY 6 HOURS (route: inhalation ) Med Classific ation: Respirato ry Therapy Agents budesonide- formoterol HFA 80 mcg-4.5 mcg/actuati on aerosol inhaler 2023-09 00:00: 00 Yes [id number] COPD 2 puff 2 TIMES DAILY 2 puff 2 TIMES DAILY (route: inhalation ) Med Classific ation: Respirato ry Therapy Agents dicyclomine 10 mg tablet 2023-09 00:00: 00 Yes [id number] SPASM 10 mg 3 TIMES DAILY 10 mg 3 TIMES DAILY (route: oral) Med Classific ation: Gastroint estinal Therapy Agents duloxetine 60 mg capsule,del ayed release 2023-09 00:00: 00 Yes [id number] ANTIDEPRESS ANT 1 capsule DAILY 1 capsule DAILY (route: oral) Med Classific ation: Central Nervous System Agents Eliquis 5 mg tablet 2023-09 00:00: 00 Yes [id number] PREVENTS BLOOD CLOTS 1 tablet 2 TIMES DAILY 1 tablet 2 TIMES DAILY (route: oral) Med Classific ation: Hematolog ical Agents ferrous sulfate 325 mg (65 mg iron) tablet 2023-09 00:00: 00 Yes [id number] SUPPLEMENT 1 tablet DAILY 1 tablet DAILY (route: oral) Med Classific ation: Electroly te Balance-N utritiona l Products hydromorpho ne 2 mg tablet 2023-09 00:00: 00 Yes [id number] PAIN MANAGEMENT 1 tablet EVERY 12 HOURS 1 tablet EVERY 12 HOURS (route: oral) Med Classific ation: Analgesic , Anti-infl ammatory or Antipyret ic Keppra 100 mg/mL oral solution 2023-09 00:00: 00 Yes [id number] PREVENTS SEIZURES 7.5 mL 2 TIMES DAILY 7.5 mL 2 TIMES DAILY (route: oral) Med Classific ation: Central Nervous System Agents levothyroxi ne 50 mcg tablet 2023-09 00:00: 00 Yes [id number] HYPOTHYROID 1 tablet DAILY 1 tablet DAILY (route: oral) Med Classific ation: Endocrine loperamide 2 mg tablet 2023-09 00:00: 00 Yes [id number] LOOSE STOOLS 1 tablet 4 TIMES DAILY 1 tablet 4 TIMES DAILY (route: oral) Med Classific ation: Gastroint estinal Therapy Agents midodrine 5 mg tablet 2023-09 00:00: 00 Yes [id number] RAISES BLOOD PRESSURE 2 tablet DAILY 2 tablet DAILY (route: oral) Med Classific ation: Cardiovas cular Therapy Agents multivitami n tablet 2023-09 00:00: 00 Yes [id number] SUPPLEMENT 1 tablet DAILY 1 tablet DAILY (route: oral) Med Classific ation: Electroly te Balance-N utritiona l Products naloxone 4 mg/actuatio n nasal spray 2023-09 00:00: 00 Yes [id number] TO REVERSE OPIOID OVERDOSE 1 spray NEEDED 1 spray NEEDED (route: nasal) Med Classific ation: Antidotes and other Reversal Agents ondansetron 4 mg disintegrat ing tablet 2023-09 00:00: 00 Yes [id number] NAUSEA/VOMI TING 1 tablet EVERY 8 HOURS 1 tablet EVERY 8 HOURS (route: oral) Med Classific ation: Gastroint estinal Therapy Agents pantoprazol e 40 mg tablet,amara yed release 2023-09 00:00: 00 Yes [id number] GERD 1 tablet DAILY 1 tablet DAILY (route: oral) Med Classific ation: Gastroint estinal Therapy Agents simvastatin 40 mg tablet 2023-09 00:00: 00 Yes [id number] LOWERS CHOLESTEROL 1 tablet BEDTIME 1 tablet BEDTIME (route: oral) Med Classific ation: Cardiovas cular Therapy Agents thiamine HCl (vitamin B1) 100 mg tablet 2023-09 00:00: 00 Yes [id number] SUPPLEMENT 1 tablet DAILY 1 tablet DAILY (route: oral) Med Classific ation: Electroly te Balance-N utritiona l Products trazodone 50 mg tablet 2023-09 00:00: 00 Yes [id number] IMPROVES SLEEP 1 tablet BEDTIME 1 tablet BEDTIME (route: oral) Med Classific ation: Central Nervous System Agents Vital Signs Vital Name Observation Time Observation Value Commen ts Temperature 2024-09-19 09:12:00.000 97.4 [degF] Temperature 2024-09-17 07:14:00.000 97.2 [degF] Temperature 2024-09-11 13:39:00.000 97.5 [degF] BMI (%) 2024-09-11 13:34:52.000 22 kg/m2 Height 2024-09-11 13:34:17.000 60 [in_us] Pulse 2024-09-19 09:12:00.000 77 /min Pulse 2024-09-17 07:14:00.000 70 /min Pulse 2024-09-11 13:39:00.000 88 /min O2 Saturation (%) 2024-09-19 09:12:00.000 97 % O2 Saturation (%) 2024-09-17 07:16:00.000 97 % O2 Saturation (%) 2024-09-11 13:39:00.000 100 % Respirations 2024-09-19 09:12:00.000 18 /min Respirations 2024-09-17 07:14:00.000 18 /min Respirations 2024-09-11 13:39:00.000 18 /min Weight (lbs) 2024-09-11 13:34:52.000 114 [lb_av] Systolic Blood Pressure 2024-09-19 09:12:00.000 118 mm [Hg] Systolic Blood Pressure 2024-09-17 07:14:00.000 124 mm [Hg] Systolic Blood Pressure 2024-09-11 13:39:00.000 106 mm [Hg] Diastolic Blood Pressure 2024-09-19 09:12:00.000 68 mm [Hg] Diastolic Blood Pressure 2024-09-17 07:14:00.000 72 mm [Hg] Diastolic Blood Pressure 2024-09-11 13:39:00.000 62 mm [Hg] Plan of Treatment Planned Activity Planned Date Details Comments Future Scheduled Test RN TO OBSE RVE, ASSESS, EVALUATE, AND DEVELOP AN INDIVIDUALIZED PLAN OF CARE. AGENCY MAY ACCEPT ORDERS FROM CONSULTING PHYSICIANS. RN TO OBSERVE AND ASSESS, RECEPTIONIST TELEPHONE OPERATOR/BRAKE DRUM LATHE OPERATOR TO OBSERVE FOR RISK FOR FALLS AND INSTRUCT IN FALL PREVENTION, HOME SAFETY, MEDICATION MANAGEMENT, INFECTION PREVENTION, AND NUTRITION MANAGEMENT. RN/RECEPTIONIST TELEPHONE OPERATOR/BRAKE DRUM LATHE OPERATOR NURSE MAY PERFORM O2 SATURATION LEVEL ON ADMISSION AND PRN FOR RN TO ASSESS/RECEPTIONIST TELEPHONE OPERATOR TO OBSERVE PATIENT, WITH NOTIFICATION TO THE PHYSICIAN IF SATURATION IS 90% IN THE ABSENCE OF MORE SPECIFIC PARAMETERS FROM THE PHYSICIAN. AGENCY MAY PERFORM A RESUMPTION OF CARE VISIT FOLLOWING ANY HOSPITAL ADMISSION. RN/RECEPTIONIST TELEPHONE OPERATOR/BRAKE DRUM LATHE OPERATOR TO MONITOR CO-MORBID CONDITIONS LISTED ON THE PLAN OF CARE AND ANY NEW CONDITIONS THAT PRESENT THEMSELVES DURING THIS EPISODE TO IDENTIFY CHANGES AND INTERVENE TO MINIMIZE COMPLICATIONS. [code = RN TO OBSERVE, ASSESS, EVALUATE, AND DEVELOP AN INDIVIDUALIZED PLAN OF CARE. AGENCY MAY ACCEPT ORDERS FROM CONSULTING PHYSICIANS. RN TO OBSERVE AND ASSESS, RECEPTIONIST TELEPHONE OPERATOR/BRAKE DRUM LATHE OPERATOR TO OBSERVE FOR RISK FOR FALLS AND INSTRUCT IN FALL PREVENTION, HOME SAFETY, MEDICATION MANAGEMENT, INFECTION PREVENTION, AND NUTRITION MANAGEMENT. RN/RECEPTIONIST TELEPHONE OPERATOR/BRAKE DRUM LATHE OPERATOR NURSE MAY PERFORM O2 SATURATION LEVEL ON ADMISSION AND PRN FOR RN TO ASSESS/RECEPTIONIST TELEPHONE OPERATOR TO OBSERVE PATIENT, WITH NOTIFICATION TO THE PHYSICIAN IF SATURATION IS 90% IN THE ABSENCE OF MORE SPECIFIC PARAMETERS FROM THE PHYSICIAN. AGENCY MAY PERFORM A RESUMPTION OF CARE VISIT FOLLOWING ANY HOSPITAL ADMISSION. RN/RECEPTIONIST TELEPHONE OPERATOR/BRAKE DRUM LATHE OPERATOR TO MONITOR CO-MORBID CONDITIONS LISTED ON THE PLAN OF CARE AND ANY NEW CONDITIONS THAT PRESENT THEMSELVES DURING THIS EPISODE TO IDENTIFY CHANGES AND INTERVENE TO MINIMIZE COMPLICATIONS.] Future Scheduled Test MEDICATION MANAGEMENT; RN/RECEPTIONIST TELEPHONE OPERATOR/BRAKE DRUM LATHE OPERATOR TO REVIEW MEDICATIONS FOR INTERACTIONS, EFFECTIVENESS OF DRUG THERAPY, AND SIGNS/SYMPTOMS OF ADVERSE REACTIONS. MAY INSTRUCT AND REINFORCE MEDICATION TEACHING RELATED TO THE USE OF MEDICATIONS, DOSAGE, FREQUENCY, PURPOSE, SIDE EFFECTS, AND TO REPORT COMPLICATIONS. [code = MEDICATION MANAGEMENT; RN/RECEPTIONIST TELEPHONE OPERATOR/BRAKE DRUM LATHE OPERATOR TO REVIEW MEDICATIONS FOR INTERACTIONS, EFFECTIVENESS OF DRUG THERAPY, AND SIGNS/SYMPTOMS OF ADVERSE REACTIONS. MAY INSTRUCT AND REINFORCE MEDICATION TEACHING RELATED TO THE USE OF MEDICATIONS, DOSAGE, FREQUENCY, PURPOSE, SIDE EFFECTS, AND TO REPORT COMPLICATIONS.] Future Scheduled Test PAIN MANAG EMENT; RN TO ASSESS AND TEACH, BRAKE DRUM LATHE OPERATOR/RECEPTIONIST TELEPHONE OPERATOR TO OBSERVE AND TEACH AND PROVIDE EDUCATION ON PAIN MANAGEMENT TECHNIQUES. [code = PAIN MANAGEMENT; RN TO ASSESS AND TEACH, BRAKE DRUM LATHE OPERATOR/RECEPTIONIST TELEPHONE OPERATOR TO OBSERVE AND TEACH AND PROVIDE EDUCATION ON PAIN MANAGEMENT TECHNIQUES.] Future Scheduled Test GENITOURIN KAYLA MANAGEMENT; RN TO ASSESS AND TEACH, RECEPTIONIST TELEPHONE OPERATOR/BRAKE DRUM LATHE OPERATOR TO OBSERVE AND TEACH RELATED TO ALTERED GENITOURINARY STATUS TO MINIMIZE COMPLICATIONS AND REDUCE HOSPITALIZATION. [code = GENITOURINARY MANAGEMENT; RN TO ASSESS AND TEACH, RECEPTIONIST TELEPHONE OPERATOR/BRAKE DRUM LATHE OPERATOR TO OBSERVE AND TEACH RELATED TO ALTERED GENITOURINARY STATUS TO MINIMIZE COMPLICATIONS AND REDUCE HOSPITALIZATION.] Future Scheduled Test UROSTOMY M ANAGEMENT; RN/BRAKE DRUM LATHE OPERATOR/RECEPTIONIST TELEPHONE OPERATOR TO INSTRUCT PATIENT/CAREGIVER ON UROSTOMY MANAGEMENT INCLUDING APPLIANCE TYPE, USAGE, AND STOMA CARE EACH VISIT NEEDED. [code = UROSTOMY MANAGEMENT; RN/BRAKE DRUM LATHE OPERATOR/RECEPTIONIST TELEPHONE OPERATOR TO INSTRUCT PATIENT/CAREGIVER ON UROSTOMY MANAGEMENT INCLUDING APPLIANCE TYPE, USAGE, AND STOMA CARE EACH VISIT NEEDED.] Future Scheduled Test GASTROINTE STINAL MANAGEMENT; RN TO ASSESS AND TEACH, BRAKE DRUM LATHE OPERATOR/RECEPTIONIST TELEPHONE OPERATOR TO OBSERVE AND TEACH RELATED TO ALTERED GASTROINTESTINAL STATUS TO MINIMIZE COMPLICATIONS AND REDUCE HOSPITALIZATION. [code = GASTROINTESTINAL MANAGEMENT; RN TO ASSESS AND TEACH, BRAKE DRUM LATHE OPERATOR/RECEPTIONIST TELEPHONE OPERATOR TO OBSERVE AND TEACH RELATED TO ALTERED GASTROINTESTINAL STATUS TO MINIMIZE COMPLICATIONS AND REDUCE HOSPITALIZATION.] Future Scheduled Test COLOSTOMY/ ILEOSTOMY TEACHING/MANAGEMENT; RN/BRAKE DRUM LATHE OPERATOR/RECEPTIONIST TELEPHONE OPERATOR TO INSTRUCT PATIENT/CAREGIVER ON COLOSTOMY MANAGEMENT INCLUDING APPLIANCE TYPE, USAGE, AND STOMAL CARE. RN/BRAKE DRUM LATHE OPERATOR/RECEPTIONIST TELEPHONE OPERATOR MAY PERFORM OSTOMY APPLIANCE CHANGE AND STOMA CARE EACH VISIT NEEDED. [code = COLOSTOMY/ILEOSTOMY TEACHING/MANAGEMENT; RN/BRAKE DRUM LATHE OPERATOR/RECEPTIONIST TELEPHONE OPERATOR TO INSTRUCT PATIENT/CAREGIVER ON COLOSTOMY MANAGEMENT INCLUDING APPLIANCE TYPE, USAGE, AND STOMAL CARE. RN/BRAKE DRUM LATHE OPERATOR/RECEPTIONIST TELEPHONE OPERATOR MAY PERFORM OSTOMY APPLIANCE CHANGE AND STOMA CARE EACH VISIT NEEDED.] Future Scheduled Test FALL REDUC TION MANAGEMENT; RN TO ASSESS AND OBSERVE, RECEPTIONIST TELEPHONE OPERATOR/BRAKE DRUM LATHE OPERATOR TO OBSERVE FALL RISK FACTORS AND EDUCATE PATIENT/CAREGIVER ON STRATEGIES TO MINIMIZE THE RISK OF FALLING. [code = FALL REDUCTION MANAGEMENT; RN TO ASSESS AND OBSERVE, RECEPTIONIST TELEPHONE OPERATOR/BRAKE DRUM LATHE OPERATOR TO OBSERVE FALL RISK FACTORS AND EDUCATE PATIENT/CAREGIVER ON STRATEGIES TO MINIMIZE THE RISK OF FALLING.] Future Scheduled Test COVID-19 P OSITIVE/SYMPTOMATIC MANAGEMENT; RN TO ASSESS AND TEACH, RECEPTIONIST TELEPHONE OPERATOR/BRAKE DRUM LATHE OPERATOR TO OBSERVE AND TEACH SIGNS OF COVID-19 AND PROVIDE EARLY INTERVENTIONS TO MINIMIZE RISK OF HOSPITALIZATION. [code = COVID-19 POSITIVE/SYMPTOMATIC MANAGEMENT; RN TO ASSESS AND TEACH, RECEPTIONIST TELEPHONE OPERATOR/BRAKE DRUM LATHE OPERATOR TO OBSERVE AND TEACH SIGNS OF COVID-19 AND PROVIDE EARLY INTERVENTIONS TO MINIMIZE RISK OF HOSPITALIZATION.] Goal Patient Goal - T O NOT HAVE FALLS, TO GAIN WEIGHT. Goal Provider Goal - A PLAN OF CARE WILL BE ESTABLISHED THAT MEETS THE PATIENTS NEEDS. PATIENT WILL DEMONSTRATE OXYGEN SATURATION WITHIN NORMAL LIMITS OR PATIENTS OPTIMAL LEVEL ESTABLISHED BY THE PHYSICIAN THROUGHOUT CARE. CHANGES TO CO-MORBID CONDITIONS AND ANY NEW CONDITIONS WILL BE IDENTIFIED AND REPORTED TO THE PHYSICIAN. Goal Provider Goal - PATIENT/CAREGIVER TO VERBALIZE, AND CONSISTENTLY DEMONSTRATE EFFECTIVE, SAFE MANAGEMENT OF MEDICATION INCLUDING KNOWLEDGE OF EFFECTIVENESS, POTENTIAL SIDE EFFECTS AND DRUG REACTIONS AND WHEN TO CONTACT THE APPROPRIATE CARE PROVIDER. PATIENT/CAREGIVER WILL BE ABLE TO VERBALIZE UNDERSTANDING OF MEDICATION REGIMEN AND ACCURATELY TAKE MEDICATIONS PRESCRIBED WITHOUT ADVERSE EFFECTS BY 11/09/24. Goal Provider Goal - PATIENT / CAREGIVER WILL VERBALIZE / DEMONSTRATE UNDERSTANDING OF PAIN CONTROL MEASURES BY 11/09/24. Goal Provider Goal - PATIENT / CAREGIVER WILL VERBALIZE/DEMONSTRATE UNDERSTANDING OF MEASURES TO MANAGE ALTERED GENITOURINARY STATUS BY END OF EPISODE. Goal Provider Goal - PATIENT/CAREGIVER WILL BE ABLE TO VERBALIZE/DEMONSTRATE APPROPRIATE UROSTOMY MANAGEMENT BY 11/09/24. Goal Provider Goal - PATIENT / CAREGIVER WILL VERBALIZE/DEMONSTRATE UNDERSTANDING OF MEASURES TO MANAGE ALTERED GASTROINTESTINAL STATUS BY END OF EPISODE. Goal Provider Goal - PATIENT / CAREGIVER WILL BE ABLE TO VERBALIZE/DEMONSTRATE APPROPRIATE COLOSTOMY CARE MANAGEMENT BY 11/09/24. Goal Provider Goal - PATIENT/CAREGIVER WILL VERBALIZE/DEMONSTRATE UNDERSTANDING OF FALL RISK FACTORS AND IMPLEMENT STRATEGIES TO MINIMIZE FALL RISK. PATIENT/CAREGIVER WILL VERBALIZE/DEMONSTRATE AN ABILITY TO ADHERE TO FALL REDUCTION SELF-MANAGEMENT AND LIFE-STYLE CHANGES BY 11/09/24. Goal Provider Goal - PATIENT / CAREGIVER WILL VERBALIZED/DEMONSTRATED AN ABILITY TO ADHERE TO COVID-19 SELF-MANAGEMENT TO MINIMIZE COMPLICATIONS AND AVOID HOSPITALIZATION BY END OF EPISODE. Encounters Start Date/Time End Date/Time Encounter Type Admission Type Attending [facility] Care [facility] Care Department Encounter ID Discharge Date Discharge Status Discharge Condition Discharge Reason Percent Goals Met 2024-09-11 00:00:00 2024-11-09 00:00:00 Outpatient NEW ADMISSION [facility] [id number]
--- OUTSIDE RECORDS SUMMARY | 2024-10-08 18:01 | XMS_ITS | Clinical Summary ---
Author Organization Unknown Care Team Providers Care Major Account Representative Name Role Phone FEDERICO PAUL, MIKO Unavailable Unavailab Jay SANTOS, B[place] Unavailable Unavailable LINO KIMN, LUI Unavailable Unavailable JANUARY PT, DONN Unavailable Unavailable OBINNA PRINTING PLATE SETTER, JOSÉ ANTONIO Unavailable Unavailable Payers Payer Name Policy Type Policy Number Effective Date Expira tion Date [facility]OHAIBSoniaST. [facility]ITALPASTORLibertyLibertyДМИТРИЙ[facility] [id number] Problems Condition Name Condition Details Condition Category [...] 2- 00:00: 00 ATHSCL HEART DISEASE OF [place] CORONARY ARTERY W/O ANG PCTRS Active 09-24 [...] 2023-09 00:00: 00 09-11 00:00 :00 No [id number] Per instruc tions Per instructio ns (route: oral) Med Classific ation: Analgesic , Anti-infl ammatory or Antipyret ic ondansetron HCl 4 mg tablet 2023-09 00:00: 00 09-11 00:00 :00 No [id number] Per instruc tions Per instructio ns (route: oral) Med Classific ation: Gastroint estinal Therapy Agents albuterol sulfate HFA 90 mcg/actuati on aerosol inhaler 2023-09 00:00: 00 09-11 00:00 :00 No [id number] Per instruc tions Per instructio ns (route: inhalation ) Med Classific ation: Respirato ry Therapy Agents levetiracet am 100 mg/mL oral solution 2023-09 00:00: 00 09-11 00:00 :00 No [id number] Per instruc tions Per instructio ns (route: oral) Med Classific ation: Central Nervous System Agents albuterol sulfate HFA 90 mcg/actuati on aerosol inhaler 2023-09 00:00: 00 Yes [id number] WHEEZING 1 puff EVERY 6 HOURS 1 puff EVERY 6 HOURS (route: inhalation ) Med Classific ation: Respirato ry Therapy Agents budesonide- formoterol HFA 80 mcg-4.5 mcg/actuati on aerosol inhaler 2023-09 00:00: 00 Yes [id number] COPD 2 puff 2 TIMES DAILY 2 puff 2 TIMES DAILY (route: inhalation ) Med Classific ation: Respirato ry Therapy Agents dicyclomine 10 mg tablet 2023-09 00:00: 00 Yes [id number] SPASM 10 mg 3 TIMES DAILY 10 mg 3 TIMES DAILY (route: oral) Med Classific ation: Gastroint estinal Therapy Agents duloxetine 60 mg capsule,del ayed release 2023-09 00:00: 00 Yes [id number] ANTIDEPRESS ANT 1 capsule DAILY 1 capsule DAILY (route: oral) Med Classific ation: Central Nervous System Agents Eliquis 5 mg tablet 2023-09 00:00: 00 Yes [id number] PREVENTS BLOOD CLOTS 1 tablet 2 TIMES DAILY 1 tablet 2 TIMES DAILY (route: oral) Med Classific ation: Hematolog ical Agents ferrous sulfate 325 mg (65 mg iron) tablet 2023-09 00:00: 00 Yes [id number] SUPPLEMENT 1 tablet DAILY 1 tablet DAILY (route: oral) Med Classific ation: Electroly te Balance-N utritiona l Products hydromorpho ne 2 mg tablet 2023-09 00:00: 00 Yes [id number] PAIN MANAGEMENT 1 tablet EVERY 12 HOURS 1 tablet EVERY 12 HOURS (route: oral) Med Classific ation: Analgesic , Anti-infl ammatory or Antipyret ic Keppra 100 mg/mL oral solution 2023-09 00:00: 00 Yes [id number] PREVENTS SEIZURES 7.5 mL 2 TIMES DAILY 7.5 mL 2 TIMES DAILY (route: oral) Med Classific ation: Central Nervous System Agents levothyroxi ne 50 mcg tablet 2023-09 00:00: 00 Yes [id number] HYPOTHYROID 1 tablet DAILY 1 tablet DAILY (route: oral) Med Classific ation: Endocrine loperamide 2 mg tablet 2023-09 00:00: 00 Yes [id number] LOOSE STOOLS 1 tablet 4 TIMES DAILY 1 tablet 4 TIMES DAILY (route: oral) Med Classific ation: Gastroint estinal Therapy Agents midodrine 5 mg tablet 2023-09 00:00: 00 Yes [id number] RAISES BLOOD PRESSURE 2 tablet DAILY 2 tablet DAILY (route: oral) Med Classific ation: Cardiovas cular Therapy Agents multivitami n tablet 2023-09 00:00: 00 Yes [id number] SUPPLEMENT 1 tablet DAILY 1 tablet DAILY (route: oral) Med Classific ation: Electroly te Balance-N utritiona l Products naloxone 4 mg/actuatio n nasal spray 2023-09 00:00: 00 Yes [id number] TO REVERSE OPIOID OVERDOSE 1 spray NEEDED 1 spray NEEDED (route: nasal) Med Classific ation: Antidotes and other Reversal Agents ondansetron 4 mg disintegrat ing tablet 2023-09 00:00: 00 Yes [id number] NAUSEA/VOMI TING 1 tablet EVERY 8 HOURS 1 tablet EVERY 8 HOURS (route: oral) Med Classific ation: Gastroint estinal Therapy Agents pantoprazol e 40 mg tablet,amara yed release 2023-09 00:00: 00 Yes [id number] GERD 1 tablet DAILY 1 tablet DAILY (route: oral) Med Classific ation: Gastroint estinal Therapy Agents simvastatin 40 mg tablet 2023-09 00:00: 00 Yes [id number] LOWERS CHOLESTEROL 1 tablet BEDTIME 1 tablet BEDTIME (route: oral) Med Classific ation: Cardiovas cular Therapy Agents thiamine HCl (vitamin B1) 100 mg tablet 2023-09 00:00: 00 Yes [id number] SUPPLEMENT 1 tablet DAILY 1 tablet DAILY (route: oral) Med Classific ation: Electroly te Balance-N utritiona l Products trazodone 50 mg tablet 2023-09 00:00: 00 Yes [id number] IMPROVES SLEEP 1 tablet BEDTIME 1 tablet [...] CONSULTING PHYSICIANS. RN TO OBSERVE AND ASSESS, PLASTIC FRAME INSERTER/BUSINESS PERFORMANCE SPECIALIST TO OBSERVE FOR RISK FOR FALLS AND INSTRUCT IN FALL PREVENTION, HOME SAFETY, MEDICATION MANAGEMENT, INFECTION PREVENTION, AND NUTRITION MANAGEMENT. RN/PLASTIC FRAME INSERTER/BUSINESS PERFORMANCE SPECIALIST NURSE MAY PERFORM O2 SATURATION LEVEL ON ADMISSION AND PRN FOR RN TO ASSESS/PLASTIC FRAME INSERTER TO OBSERVE PATIENT, WITH NOTIFICATION TO THE PHYSICIAN IF SATURATION IS 90% IN THE ABSENCE OF MORE SPECIFIC PARAMETERS FROM THE PHYSICIAN. AGENCY MAY PERFORM A RESUMPTION OF CARE VISIT FOLLOWING ANY HOSPITAL ADMISSION. RN/PLASTIC FRAME INSERTER/BUSINESS PERFORMANCE SPECIALIST TO MONITOR CO-MORBID CONDITIONS LISTED ON THE PLAN OF CARE AND ANY NEW CONDITIONS THAT PRESENT THEMSELVES DURING THIS EPISODE TO IDENTIFY CHANGES AND INTERVENE TO MINIMIZE COMPLICATIONS. [code = RN TO OBSERVE, ASSESS, EVALUATE, AND DEVELOP AN INDIVIDUALIZED PLAN OF CARE. AGENCY MAY ACCEPT ORDERS FROM CONSULTING PHYSICIANS. RN TO OBSERVE AND ASSESS, PLASTIC FRAME INSERTER/BUSINESS PERFORMANCE SPECIALIST TO OBSERVE FOR RISK FOR FALLS AND INSTRUCT IN FALL PREVENTION, HOME SAFETY, MEDICATION MANAGEMENT, INFECTION PREVENTION, AND NUTRITION MANAGEMENT. RN/PLASTIC FRAME INSERTER/BUSINESS PERFORMANCE SPECIALIST NURSE MAY PERFORM O2 SATURATION LEVEL ON ADMISSION AND PRN FOR RN TO ASSESS/PLASTIC FRAME INSERTER TO OBSERVE PATIENT, WITH NOTIFICATION TO THE PHYSICIAN IF SATURATION IS 90% IN THE ABSENCE OF MORE SPECIFIC PARAMETERS FROM THE PHYSICIAN. AGENCY MAY PERFORM A RESUMPTION OF CARE VISIT FOLLOWING ANY HOSPITAL ADMISSION. RN/PLASTIC FRAME INSERTER/BUSINESS PERFORMANCE SPECIALIST TO MONITOR CO-MORBID CONDITIONS LISTED ON THE PLAN OF CARE AND ANY NEW CONDITIONS THAT PRESENT THEMSELVES DURING THIS EPISODE TO IDENTIFY CHANGES AND INTERVENE TO MINIMIZE COMPLICATIONS.] Future Scheduled Test MEDICATION MANAGEMENT; RN/PLASTIC FRAME INSERTER/BUSINESS PERFORMANCE SPECIALIST TO REVIEW MEDICATIONS FOR INTERACTIONS, EFFECTIVENESS OF DRUG THERAPY, AND SIGNS/SYMPTOMS OF ADVERSE REACTIONS. MAY INSTRUCT AND REINFORCE MEDICATION TEACHING RELATED TO THE USE OF MEDICATIONS, DOSAGE, FREQUENCY, PURPOSE, SIDE EFFECTS, AND TO REPORT COMPLICATIONS. [code = MEDICATION MANAGEMENT; RN/PLASTIC FRAME INSERTER/BUSINESS PERFORMANCE SPECIALIST TO REVIEW MEDICATIONS FOR INTERACTIONS, EFFECTIVENESS OF DRUG THERAPY, AND SIGNS/SYMPTOMS OF ADVERSE REACTIONS. MAY INSTRUCT AND REINFORCE MEDICATION TEACHING RELATED TO THE USE OF MEDICATIONS, DOSAGE, FREQUENCY, PURPOSE, SIDE EFFECTS, AND TO REPORT COMPLICATIONS.] Future Scheduled Test PAIN MANAG EMENT; RN TO ASSESS AND TEACH, BUSINESS PERFORMANCE SPECIALIST/PLASTIC FRAME INSERTER TO OBSERVE AND TEACH AND PROVIDE EDUCATION ON PAIN MANAGEMENT TECHNIQUES. [code = PAIN MANAGEMENT; RN TO ASSESS AND TEACH, BUSINESS PERFORMANCE SPECIALIST/PLASTIC FRAME INSERTER TO OBSERVE AND TEACH AND PROVIDE EDUCATION ON PAIN MANAGEMENT TECHNIQUES.] Future Scheduled Test GENITOURIN KAYLA MANAGEMENT; RN TO ASSESS AND TEACH, PLASTIC FRAME INSERTER/BUSINESS PERFORMANCE SPECIALIST TO OBSERVE AND TEACH RELATED TO ALTERED GENITOURINARY STATUS TO MINIMIZE COMPLICATIONS AND REDUCE HOSPITALIZATION. [code = GENITOURINARY MANAGEMENT; RN TO ASSESS AND TEACH, PLASTIC FRAME INSERTER/BUSINESS PERFORMANCE SPECIALIST TO OBSERVE AND TEACH RELATED TO ALTERED GENITOURINARY STATUS TO MINIMIZE COMPLICATIONS AND REDUCE HOSPITALIZATION.] Future Scheduled Test UROSTOMY M ANAGEMENT; RN/BUSINESS PERFORMANCE SPECIALIST/PLASTIC FRAME INSERTER TO INSTRUCT PATIENT/CAREGIVER ON UROSTOMY MANAGEMENT INCLUDING APPLIANCE TYPE, USAGE, AND STOMA CARE EACH VISIT NEEDED. [code = UROSTOMY MANAGEMENT; RN/BUSINESS PERFORMANCE SPECIALIST/PLASTIC FRAME INSERTER TO INSTRUCT PATIENT/CAREGIVER ON UROSTOMY MANAGEMENT INCLUDING APPLIANCE TYPE, USAGE, AND STOMA CARE EACH VISIT NEEDED.] Future Scheduled Test GASTROINTE STINAL MANAGEMENT; RN TO ASSESS AND TEACH, BUSINESS PERFORMANCE SPECIALIST/PLASTIC FRAME INSERTER TO OBSERVE AND TEACH RELATED TO ALTERED GASTROINTESTINAL STATUS TO MINIMIZE COMPLICATIONS AND REDUCE HOSPITALIZATION. [code = GASTROINTESTINAL MANAGEMENT; RN TO ASSESS AND TEACH, BUSINESS PERFORMANCE SPECIALIST/PLASTIC FRAME INSERTER TO OBSERVE AND TEACH RELATED TO ALTERED GASTROINTESTINAL STATUS TO MINIMIZE COMPLICATIONS AND REDUCE HOSPITALIZATION.] Future Scheduled Test COLOSTOMY/ ILEOSTOMY TEACHING/MANAGEMENT; RN/BUSINESS PERFORMANCE SPECIALIST/PLASTIC FRAME INSERTER TO INSTRUCT PATIENT/CAREGIVER ON COLOSTOMY MANAGEMENT INCLUDING APPLIANCE TYPE, USAGE, AND STOMAL CARE. RN/BUSINESS PERFORMANCE SPECIALIST/PLASTIC FRAME INSERTER MAY PERFORM OSTOMY APPLIANCE CHANGE AND STOMA CARE EACH VISIT NEEDED. [code = COLOSTOMY/ILEOSTOMY TEACHING/MANAGEMENT; RN/BUSINESS PERFORMANCE SPECIALIST/PLASTIC FRAME INSERTER TO INSTRUCT PATIENT/CAREGIVER ON COLOSTOMY MANAGEMENT INCLUDING APPLIANCE TYPE, USAGE, AND STOMAL CARE. RN/BUSINESS PERFORMANCE SPECIALIST/PLASTIC FRAME INSERTER MAY PERFORM OSTOMY APPLIANCE CHANGE AND STOMA CARE EACH VISIT NEEDED.] Future Scheduled Test FALL REDUC TION MANAGEMENT; RN TO ASSESS AND OBSERVE, PLASTIC FRAME INSERTER/BUSINESS PERFORMANCE SPECIALIST TO OBSERVE FALL RISK FACTORS AND EDUCATE PATIENT/CAREGIVER ON STRATEGIES TO MINIMIZE THE RISK OF FALLING. [code = FALL REDUCTION MANAGEMENT; RN TO ASSESS AND OBSERVE, PLASTIC FRAME INSERTER/BUSINESS PERFORMANCE SPECIALIST TO OBSERVE FALL RISK FACTORS AND EDUCATE PATIENT/CAREGIVER ON STRATEGIES TO MINIMIZE THE RISK OF FALLING.] Future Scheduled Test COVID-19 P OSITIVE/SYMPTOMATIC MANAGEMENT; RN TO ASSESS AND TEACH, PLASTIC FRAME INSERTER/BUSINESS PERFORMANCE SPECIALIST TO OBSERVE AND TEACH SIGNS OF COVID-19 AND PROVIDE EARLY INTERVENTIONS TO MINIMIZE RISK OF HOSPITALIZATION. [code = COVID-19 POSITIVE/SYMPTOMATIC MANAGEMENT; RN TO ASSESS AND TEACH, PLASTIC FRAME INSERTER/BUSINESS PERFORMANCE SPECIALIST TO OBSERVE AND TEACH SIGNS OF COVID-19 [...] End Date/Time Encounter Type Admission Type Attending [facility] [place] [facility] Care Department Encounter ID Discharge Date Discharge Status Discharge Condition Discharge Reason Percent Goals Met 2024-09-11 00:00:00 2024-11-09 00:00:00 Outpatient NEW ADMISSION [place] [facility] [id number] .57
== END 2024-10-08 16:11 | disposition home or self-care (01) ==
PROVIDERS: PCP Internal Medicine
DX: J44.9 Chronic obstructive pulmonary disease, unspecified (principal); M25.512 Pain in left shoulder; G89.29 Other chronic pain; N39.0 Urinary tract infection, site not specified; R10.9 Unspecified abdominal pain; R10.13 Epigastric pain; E78.00 Pure hypercholesterolemia, unspecified; E03.9 Hypothyroidism, unspecified; F44.5 Conversion disorder with seizures or convulsions; D64.9 Anemia, unspecified

== ENCOUNTER → 2024-10-08 15:14 | Outpatient (BNVA) | payer MEDICARE, MEDICAID, SELFPAY | PROVIDERS: PCP Internal Medicine | DX: M25.512 Pain in left shoulder (principal); G89.29 Other chronic pain; N39.0 Urinary tract infection, site not specified; R10.9 Unspecified abdominal pain; J44.9 Chronic obstructive pulmonary disease, unspecified; R10.13 Epigastric pain; E78.00 Pure hypercholesterolemia, unspecified; E03.9 Hypothyroidism, unspecified; F44.5 Conversion disorder with seizures or convulsions; D64.9 Anemia, unspecified | CPT/HCPCS: 96127; 99212 ==

== ENCOUNTER 2024-12-05 14:18 | Outpatient (AMB) | payer MEDICARE, SELFPAY ==
--- NOTE | 2024-12-05 14:23 | A.OFFPC_ITS ---
Vital Signs 12/05/24 14:25 Height 5 ft Weight 129 lb 4 oz BMI 25.2 BP 100/60 Blood Pressure Location Lt brachial Position Sitting Pulse 74 Pulse Source Pulse Oximeter Temp 97.3 F Temp Source Temporal Artery Scan Pulse Oximetry (%) 95 Oxygen Delivery Method Room Air Intake Visit Reasons: [facility] 11/18 UTI/Pain Management Intake Note: Patient is here for hospital discharge follow up. Patient was discharged from [facility] on 11/18/24. Employee Relations Assistant Required: No Community Youth Secretary: Not Required per policy Accompanied by: Self / Same As Patient Allergies erythromycin base [ERYTHROMYCIN BASE] Allergy (Severe, Verified 12/05/24 14:44) Anaphylaxis levofloxacin [From Levaquin] Allergy (Severe, Verified 12/05/24 14:44) Anaphylaxis Penicillins [PCN] Allergy (Severe, Verified 12/05/24 14:44) Anaphylaxis seafood Allergy (Severe, Verified 12/05/24 14:44) Anaphylaxis Sulfa (Sulfonamide Antibiotics) [SULFA (SULFONAMIDE ANTIBIOTICS)] Allergy (Severe, Verified 12/05/24 14:44) Anaphylaxis, vomiting Tetracyclines Allergy (Severe, Verified 12/05/24 14:44) Anaphylaxis gabapentin Allergy (Intermediate, Verified 12/05/24 14:44) Hives pregabalin [From Lyrica] Allergy (Intermediate, Verified 12/05/24 14:44) Hives divalproex sodium [Depakote] Allergy (Unknown, Verified 12/05/24 14:44) altered mental status gluten [GLUTEN] Allergy (Unknown, Verified 12/05/24 14:44) BLOATING,RASH rice Allergy (Verified 12/05/24 14:44) Unknown Medication List - Last Reconciled 12/05/24 by Era Erazo PA-C Advair HFA 115-21 mcg/actuation (fluticasone propion-salmeterol) 2 puffs inhalation Q12H NS albuterol sulfate 90 mcg/actuation 2 puffs inhalation Q6H PRN amitriptyline 25 mg PO BEDTIME 30 days apixaban (Eliquis) 5 mg PO BID 30 days cane As directed cholestyramine (with sugar) 4 gram 4 grams PO BID 30 days colostomy bags As directed [colostomy supplies As directed] cyanocobalamin (vitamin B-12) 3,000 mcg PO DAILY 90 days duloxetine 60 mg PO DAILY 90 days ferrous sulfate 325 mg PO DAILY hydromorphone mg PO levetiracetam mg PO levetiracetam 750 mg PO BID 30 days levothyroxine 50 mcg PO DAILY loperamide 2 mg PO NEEDED PRN loratadine 10 mg PO DAILY magnesium oxide 1 tab PO BID midodrine 5 mg PO TID kvewkhnm-drp-LI-lycopen-lutein 0.4 mg-300 mcg- 250 mcg (CertaVite Senior) 1 tab PO DAILY pantoprazole 40 mg PO DAILY potassium chloride ER 10 mEq PO BID simvastatin 40 mg PO BEDTIME Symbicort 80-4.5 mcg/actuation (budesonide-formoterol) 2 puffs inhalation BID NS thiamine HCl (vitamin B1) (Vitamin B-1) 100 mg PO DAILY trazodone 50 mg PO BEDTIME Tobacco use date assessed: 12/05/24 Fall risk assessment: No Falls in past year Last assessed Fall Risk: 12/05/24 Dental Screening Dental Screen Date: 10/08/24 HPI [facility] 11/18 UTI/Pain Management HPI Details 69-year-old female with past medical his tory hypothyroid, pseudoseizures, epilepsy, hypercholesterolemia, history of colon cancer, neurogenic bladder, COPD, IBS, history of pulmonary embolism last seen 09/2024 coming in for hospital discharge follow up. In review of the notes, patient was seen in [facility] ED 11/25/2024 CT of the abdomen and pelvis showing evidence of enteritis admitted for further treatment. Patient was also seen in [facility] 11/03/2024 for abdominal pain as well. Mobility test of the esophagus 01/21/2025 at [facility] has had 3 previous esophageal dilations in the past. Saw pain management yesterday with plan to attempt to do a nerve block done by provider in [place] after MRI of the stomach and back has been completed. Presenting with persistent abdominal pain and esophageal narrowing. Initial abdominal pain began in October, leading to multiple hospital admissions, with a diagnosis of gastritis and intestinal gas. Diagnostic imaging confirmed persistent intestinal gas, contributing to the ongoing pain experience. The patient underwent significant surgical interventions in March, including removal of the colon and bladder due to cancer, resulting in a colostomy and urostomy. Esophageal narrowing has caused significant dysphagia and choking episodes, requiring emergency services for relief. A referral for an esophageal motility test is confirmed for January 21 at [facility]. Sciatica and chronic nerve pain contribute to her discomfort; strategies for pain management include planned nerve blocks upon completion of an MRI through [facility]. FOR[facility]LY [facility] Medical History History of pulmonary embolus (PE) Allergy to multiple antibiotics Acute suprapubic pain Neurogenic bladder, NOS COVID-19 Primary cancer of foot Pulmonary embolism Degenerative cervical disc Lumbar disc disease Celiac disease Pure hypercholesterolemia Epilepsy Hypothyroidism COPD (chronic obstructive pulmonary disease) Pseudoseizure Conversion disorder Colon cancer Paroxysmal A-fib Allergy to multiple drugs Deep vein thrombosis Surgical History History of endoscopy History of esophagogastroduodenoscopy (EGD) History of arthroplasty History of hysterectomy (~1979) Hx of cholecystectomy S/P IVC filter History of partial surgical removal of colon History of partial gastrectomy History of colectomy History of colostomy reversal History of bladder surgery History of sinus surgery History of facial surgery History of colonoscopy (~06/12/24) Family History Mother CAD (coronary artery disease) Other Mental health disorder Social History Household Members: None Household Members Other:: 1 Housing: Apartment Do you presently have visiting nurse or other home services: Yes Alcohol intake: former Patient Tobacco Use Status: Never used Tobacco e-Cigarette/Vaping Use: Never Used Second Hand Smoke Exposure: Yes Advance Directives Date on File: 08/08/23 service: No Current occupational status: disabled Cognitive needs: Yes (cane) Hearing needs: No Vision needs: Yes (Glasses) Questionnaire Thrive Questionnaire Date Thrive assessed: 10/08/24 EARNESTINE-7 AMB Questionnaire EARNESTINE-7 Date EARNESTINE - 7 assessed: 10/08/24 Source: Developed by Drs. Ranjit Valdovinos, Anila Baldwin, Saud Allison and colleagues, with an educational lionel from [employer]. Review of Systems Const Denies body aches, Denies chills, Denies fever(s), Denies headache(s) and Denies poor appetite Eyes Reports no additional complaints ENT Reports dysphagia, Denies dizziness, Denies headache(s) and Denies odynophagia Card Denies chest pain, Denies syncope, Denies edema, Denies irregular heart rhythm, Denies lightheadedness and Denies dyspnea Resp Denies cough and Denies dyspnea GI Reports abdominal pain, Reports dysphagia, Denies nausea, Denies odynophagia and Denies vomiting Reports no additional complaints Musc Reports no additional complaints and Denies abnormal gait Skin/Breast Reports system reviewed and no additional complaints, except as documented Neuro Denies abnormal gait, Denies dizziness, Denies syncope and Denies headache(s) Psych Reports no additional complaints Physical exam (Primary Care) Vital Signs: Last Vital Signs Temp 97.3 F 12/05/24 14:25 Pulse 74 12/05/24 14:25 BP 100/60 12/05/24 14:25 Pulse Ox 95 12/05/24 14:25 Oxygen Delivery Method Room Air 12/05/24 14:25 BMI result Body Mass Index 25.2 Tobacco/Smoking Status: Tobacco use Status Tobacco use date assessed 12/05/24 12/05/24 14:29 Patient Tobacco Use Status Never used Tobacco 12/05/24 14:29 e-Cigarette/Vaping Use Never Used 12/05/24 14:29 Thrive Assessment: Date of Thrive Assessment Date Thrive assessed 10/08/24 12/05/24 14:29 Const General: cooperative, healthy appearing, comfortable and no acute distress Orientation/consciousness: patient oriented x3 HENMT Head: Yes normocephalic Ears: hearing grossly normal bilaterally General nose exam: Normal external nose present Eyes General: appearance normal, both eyes and all related structures Conjunctivae: conjunctivae normal Neck Neck: Yes full ROM and Yes no lymphadenopathy Resp Effort & Inspection: normal respiratory effort Auscultation: clear to auscultation bilaterally, no crackles, no rales, no rhonchi and no wheezes Cardio Rate: regular rate Rhythm: regular rhythm Skin General skin exam: no rashes or lesions noted Neuro General: patient oriented x3 Gait exam (Neuro): Normal gait present Extrem General: Yes normal to inspection, Yes full ROM and No edema Psych Affect: normal affect Attitude: cooperative Insight: Good insight present (Psych) Judgement: Good judgement present (Psych) Coding Level of Care Code Est Pt Level 3 (61550) Diagnoses Enteritis K52.9 Esophagitis K20.90 Assessment & Plan Assessment & Plan (1) Enteritis: Code(s): K52.9 - Noninfective gastroenteritis and colitis, unspecified Category: Medical Plan: Management for persistent abdominal pain will include recommended nerve blocks following an MRI. Continued endocrine management involves thyroid and cholesterol screenings to monitor and optimize current medication use. Discussed with the patient I will reviewed the [facility] notes once I have them available and if recommendations change or if new information is revealed I will reach out to the patient for further discussion. Plan to continue to follow with Gastroenterology and Urology for ongoing management of chronic conditions. (2) Esophagitis: Code(s): K20.90 - Esophagitis, unspecified without bleeding Category: Medical Plan: The planned esophageal motility test on January 21 will further assess dysphagia related to esophageal narrowing. She continues to follow with GI in [place] Plan This note was constructed using voice recognition software. While every effort has been made to ensure accuracy and warehouse forklift operator, still areas may have been included sometimes these areas may affect the content or meeting of the given symptoms. Total time spent caring for the patient today was twenty minutes. This includes time spent before the visit reviewing the chart, time spent during the visit, and time spent after the visit and documentation. Patient was informed and verbally consented to the use of an ambient scribe for clinic note documentation during this visit. Medications: Refilled trazodone 50 mg PO BEDTIME 90 tabs 1RF
[2024-12-05 14:25] VITALS: BP 100/60; PULSE 74; TEMP 36.3; O2SAT 95; BMI 25.2
--- OUTSIDE RECORDS SUMMARY | 2024-12-05 15:58 | XMS_ITS | Clinical Summary ---
Author Organization [email or web address] Address [address] [place] [address] Care Team Providers Care Property Condition Assessor Name Role Phone Bob Camp MD Primary Care Provider [phone]- [phone] Surgical History Surgery Date Site/Laterality Comments ABDOMINAL SURGERY PROCEDURE: HISTORICAL ABDOMINAL SURGERY; COMMENT: multiple procedures, has colostomy, short gut, chronic tyson OTHER SURGICAL HISTORY PROCEDURE: HISTORICAL COLOSTOMY HYSTERECTOMY PROCEDURE: HISTORICAL TOTAL HYSTERECTOMY WITH BSO BLADDER SUSPENSION PROCEDURE: HISTORICAL BLADDER SUSPENSION OTHER SURGICAL HISTORY PROCEDURE: REPAIR MAXILLOFACIAL DEFECTS Medical History Medical History Date Comments Diabetes mellitus (CMS/HCC) 06/05/2012 DX:D iabetes mellitus (HCC) HTN (hypertension) 06/05/2012 DX:HTN (hyper tension) Encounter for long-term (cur rent) use of other medications 06/05/2012 DX:Encounter for long-term ( current) use of other medications Diabetes mellitus (CMS/HCC) 06/05/2012 DX:D iabetes mellitus (HCC) HTN (hypertension) 06/05/2012 DX:HTN (hyper tension) Pulmonary embolism (CMS/HCC) 06/05/2012 DX: Pulmonary embolism (HCC) PTSD (post-traumatic stress disorder) 06/05/2012 DX:PTSD (post-traumatic stress disorder) A-fib (CMS/HCC) 06/05/2012 DX:A-fib (FORM[facility]LY [facility]) Chronic back pain 06/05/2012 DX:Chronic thao k pain Conversion disorder 06/05/2012 DX:Conversio n disorder Gastroparesis due to DM (CMS/HCC) 06/05/2012 DX:Gastroparesis due to DM (FORM[facility]LY [facility]) GERD (gastroesophageal reflux disease) 06/05/2012 DX:GERD (gastroesophageal reflux disease) Depressed 06/05/2012 DX:Depressed Myofascial pain syndrome 06/05/2012 DX:Myof ascial pain syndrome SGS (short gut syndrome) 06/05/2012 DX:SGS (short gut syndrome) SVT (supraventricular tachyc ardia) (CMS/HCC) 06/05/2012 DX:SVT (supraventricular tachycardia) (HCC) Weight loss 06/05/2012 DX:Weight loss Anxiety 06/05/2012 DX:Anxiety Irritable bowel 06/05/2012 DX:Irritable bow el Anemia 06/19/2012 DX:Anemia Migraine 07/25/2012 DX:Migraine History of DVT (deep vein thrombosis) DX:History of DVT (deep vein thrombosis) History of pulmonary embolism DX :History of pulmonary embolism Blind left eye DX:Blind left ey e Seizures (CMS/HCC) DX:Seizures ( HCC) Family History Medical History Relation Name Comments Breast cancer Aunt 1 maternal Colon cancer Aunt 2 maternal Lung cancer Brother 1 age 48 Throat cancer Brother 2 age48 Brain cancer Brother 3 age48 Lung cancer Father Breast cancer Mother Colon cancer Mother Glaucoma Mother Alcohol abuse Other 1 Other: substance abuse Other 2 Blindness Neg Hx Cataracts Neg Hx Macular degeneration Neg Hx Strabismus Neg Hx Relation Name Status Comments Aunt 1 Aunt 2 Brother 1 Brother 2 Brother 3 Father Mother Other 1 Other 2 Social History Tobacco Use Types Packs/Day Years Used Date Smoking Tobacco: Never Smokeless Tobacco: Never Alcohol Use Standard Drinks/Week Comments No 0 (1 standard drink = 0.6 oz pur e alcohol) Comments Unknown Sex and Gender Information Value Date Recorded Sex Assigned at Not on file Legal Sex Female 3:04 PM EST Gender Identity Not on file Sexual Orientation Not on file Obstetrics History Last Filed Vital Signs Vital Sign Reading Time Taken Comments Blood Pressure 114/78 11/30/2022 9:45 AM EST Pulse 80 11/30/2022 9:45 AM EST Temperature - - Respiratory Rate - - Oxygen Saturation - - Inhaled Oxygen Concentration - - Weight 54.7 kg (120 lb 8 oz) 11/30/2022 9:45 AM EST Height 152.4 cm (5') 11/30/2022 9:45 AM EST Body Mass Index 23.53 11/30/2022 9:45 AM EST Plan of Treatment Health Maintenance Due Date Last Done Comments Breast Cancer Screening 1956 Diabetes: Annual GFR (Glomer ular Filtration Rate) 1956 Diabetes: Annual Foot Exam 1966 Diabetes: Annual Retina Eye Exam 1966 DTaP,Tdap,and Td Vaccines (1 - Tdap) 1975 Pneumococcal Vaccine: 50+ Ye ars (1 of 1 - PCV) 2006 Zoster Vaccines (1 of 2) 2006 Cholesterol Screening (Lipid Panel) 08/23/2022 Colorectal Cancer Screening: Colonoscopy 08/23/2022 Depression Screening 08/23/2022 Falls Risk Assessment 08/23/2022 Hepatitis C Screening 08/23/2022 Osteoporosis Screening (Bone Density Screening) 08/23/2022 Social Influencers of Health Screening 08/23/2022 Diabetes: Annual Urine Albumin-Creatinine Ratio (uACR) 09/09/2022 Diabetes: Blood Sugar Contro l Test (HGBA1C) 09/09/2022 Hypertension/CHF/CAD Annual BMP Blood Test 09/09/2022 COVID-19 Vaccine (2023-2 5 season) 2024 Influenza Vaccine (#1) 2024 RSV Immunization Patients 60 + Years Old (1 - 1-dose 75+ series) 2031 HIB Vaccines Aged Out No longer eligi ble based on patient's age to complete this topic HPV Vaccines Aged Out No longer eligi ble based on patient's age to complete this topic Hepatitis A Vaccines Aged Out No long er eligible based on patient's age to complete this topic Hepatitis B Vaccines Aged Out No long er eligible based on patient's age to complete this topic IPV Vaccines Aged Out No longer eligi ble based on patient's age to complete this topic MMR Vaccines Aged Out No longer eligi ble based on patient's age to complete this topic Meningococcal ACWY Vaccine Aged Out N o longer eligible based on patient's age to complete this topic Meningococcal B Vacine Aged Out No lo nger eligible based on patient's age to complete this topic RSV Immunization Patients Un octavia 20 months Aged Out No longer eligible b ased on patient's age to complete this topic Varicella Vaccines Aged Out No longer eligible based on patient's age to complete this topic Advance Directives Documents on File Type Date Recorded 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 Health Care Decision (hx) 12/14/2019 AD YOUSSEF DIRECTIVE Health Care Decision (hx) 12/14/2019 AD YOUSSEF DIRECTIVE Health Care Decision (hx) 12/14/2019 AD YOUSSEF DIRECTIVE Health Care Decision (hx) 12/14/2019 AD YOUSSEF DIRECTIVE Health Care Decision (hx) 12/14/2019 AD YOUSSEF DIRECTIVE Health Care Decision (hx) 12/14/2019 AD YOUSSEF DIRECTIVE Health Care Decision (hx) 12/14/2019 AD YOUSSEF DIRECTIVE Health Care Decision (hx) 12/14/2019 AD YOUSSEF DIRECTIVE Health Care Decision (hx) 12/14/2019 AD YOUSSEF DIRECTIVE Health Care Decision (hx) 12/14/2019 AD YOUSSEF DIRECTIVE Health Care Decision (hx) 12/14/2019 AD YOUSSEF DIRECTIVE Health Care Decision (hx) 12/14/2019 AD YOUSSEF DIRECTIVE Health Care Decision (hx) 12/14/2019 AD YOUSSEF DIRECTIVE Health Care Decision (hx) 12/14/2019 AD YOUSSEF DIRECTIVE Health Care Decision (hx) 12/14/2019 AD YOUSSEF DIRECTIVE Health Care Decision (hx) 12/14/2019 AD YOUSSEF DIRECTIVE Health Care Decision (hx) 06/16/2018 AD YOUSSEF DIRECTIVE Health Care Decision (hx) 06/16/2018 AD YOUSSEF DIRECTIVE Health Care Decision (hx) 06/16/2018 AD YOUSSEF DIRECTIVE Health Care Decision (hx) 06/16/2018 AD YOUSSEF DIRECTIVE Health Care Decision (hx) 06/16/2018 AD YOUSSEF DIRECTIVE Health Care Decision (hx) 06/16/2018 AD YOUSSEF DIRECTIVE Health Care Decision (hx) 06/16/2018 AD YOUSSEF DIRECTIVE Health Care Decision (hx) 06/16/2018 AD YOUSSEF DIRECTIVE Health Care Decision (hx) 06/16/2018 AD YOUSSEF DIRECTIVE Health Care Decision (hx) 06/16/2018 AD YOUSSEF DIRECTIVE Health Care Decision (hx) 06/16/2018 AD YOUSSEF DIRECTIVE Health Care Decision (hx) 06/16/2018 AD YOUSSEF DIRECTIVE Health Care Decision (hx) 06/16/2018 AD YOUSSEF DIRECTIVE Health Care Decision (hx) 06/16/2018 AD YOUSSEF DIRECTIVE Health Care Decision (hx) 06/16/2018 AD YOUSSEF DIRECTIVE Health Care Decision (hx) 06/16/2018 AD YOUSSEF DIRECTIVE Health Care Decision (hx) 06/16/2018 AD YOUSSEF DIRECTIVE Health Care Decision (hx) 06/16/2018 AD YOUSSEF DIRECTIVE Health Care Decision (hx) 06/16/2018 AD YOUSSEF DIRECTIVE Health Care Decision (hx) 09/21/2014 AD YOUSSEF DIRECTIVE Health Care Decision (hx) 09/21/2014 AD YOUSSEF DIRECTIVE Health Care Decision (hx) 09/21/2014 AD YOUSSEF DIRECTIVE Health Care Decision (hx) 09/21/2014 AD YOUSSEF DIRECTIVE Health Care Decision (hx) 09/21/2014 AD YOUSSEF DIRECTIVE Health Care Decision (hx) 09/21/2014 AD YOUSSEF DIRECTIVE Health Care Decision (hx) 09/21/2014 AD YOUSSEF DIRECTIVE Health Care Decision (hx) 09/21/2014 AD YOUSSEF DIRECTIVE Health Care Decision (hx) 09/21/2014 AD YOUSSEF DIRECTIVE Health Care Decision (hx) 09/21/2014 AD YOUSSEF DIRECTIVE Health Care Decision (hx) 09/21/2014 AD YOUSSEF DIRECTIVE Health Care Decision (hx) 09/21/2014 AD YOUSSEF DIRECTIVE Health Care Decision (hx) 09/21/2014 AD YOUSSEF DIRECTIVE Health Care Decision (hx) 09/21/2014 AD YOUSSEF DIRECTIVE Health Care Decision (hx) 09/21/2014 AD YOUSSEF DIRECTIVE Health Care Decision (hx) 09/21/2014 AD YOUSSEF DIRECTIVE Health Care Decision (hx) 09/21/2014 AD YOUSSEF DIRECTIVE Health Care Decision (hx) 09/21/2014 AD YOUSSEF DIRECTIVE Health Care Decision (hx) 09/21/2014 AD YOUSSEF DIRECTIVE Care Teams Property Condition Assessor Relationship Specialty Start Date End Date Bob Camp MD [facility] [address] [place] [address] [address] [place] [address] PCP - General Internal Medicine 03/03/22
== END 2024-12-05 14:52 | disposition home or self-care (01) ==
LOC: HO.HMCH 14:19
PROVIDERS: PCP Internal Medicine
DX: K52.9 Noninfective gastroenteritis and colitis, unspecified (principal); K20.90 Esophagitis, unspecified without bleeding

== ENCOUNTER → 2024-12-05 14:18 | Outpatient (BNVA) | payer MEDICARE, SELFPAY | PROVIDERS: PCP Internal Medicine | DX: K52.9 Noninfective gastroenteritis and colitis, unspecified (principal); K20.90 Esophagitis, unspecified without bleeding | CPT/HCPCS: 99212 ==

== ENCOUNTER 2024-12-24 11:00 | Outpatient (AMB) | payer MEDICARE, SELFPAY ==
--- NOTE | 2024-12-24 11:12 | A.OFFPC_ITS ---
Vital Signs 12/24/24 11:13 Height 5 ft Weight 126 lb BMI 24.6 BP 112/60 Blood Pressure Location Lt brachial Position Sitting Pulse 89 Pulse Source Pulse Oximeter Temp 97.1 F Temp Source Temporal Artery Scan Pulse Oximetry (%) 99 Oxygen Delivery Method Room Air Intake Visit Reasons: [facility] 12/21 choking Intake Note: Patient is here for hospital discharge follow up. Patient was discharged from [facility] on 12/20/24. Bending Roll Hand Required: No Shade Maker: Not Required per policy Accompanied by: Self / Same As Patient Allergies erythromycin base [ERYTHROMYCIN BASE] Allergy (Severe, Verified 12/24/24 11:16) Anaphylaxis levofloxacin [From Levaquin] Allergy (Severe, Verified 12/24/24 11:16) Anaphylaxis Penicillins [PCN] Allergy (Severe, Verified 12/24/24 11:16) Anaphylaxis seafood Allergy (Severe, Verified 12/24/24 11:16) Anaphylaxis Sulfa (Sulfonamide Antibiotics) [SULFA (SULFONAMIDE ANTIBIOTICS)] Allergy (Severe, Verified 12/24/24 11:16) Anaphylaxis, vomiting Tetracyclines Allergy (Severe, Verified 12/24/24 11:16) Anaphylaxis gabapentin Allergy (Intermediate, Verified 12/24/24 11:16) Hives pregabalin [From Lyrica] Allergy (Intermediate, Verified 12/24/24 11:16) Hives divalproex sodium [Depakote] Allergy (Unknown, Verified 12/24/24 11:16) altered mental status gluten [GLUTEN] Allergy (Unknown, Verified 12/24/24 11:16) BLOATING,RASH rice Allergy (Verified 12/24/24 11:16) Unknown Medication List - Last Reconciled 12/24/24 by Era Erazo PA-C Advair HFA 115-21 mcg/actuation (fluticasone propion-salmeterol) 2 puffs inha lation Q12H NS albuterol sulfate 90 mcg/actuation 2 puffs inhalation Q6H PRN amitriptyline 25 mg PO BEDTIME 30 days apixaban (Eliquis) 5 mg PO BID 30 days cane As directed cholestyramine (with sugar) 4 gram 4 grams PO BID 30 days colostomy bags As directed [colostomy supplies As directed] cyanocobalamin (vitamin B-12) 3,000 mcg PO DAILY 90 days duloxetine 60 mg PO DAILY 90 days ferrous sulfate 325 mg PO DAILY hydromorphone mg PO hydromorphone 2 mg PO BID levetiracetam mg PO levetiracetam 750 mg PO BID 30 days levothyroxine 50 mcg PO DAILY loratadine 10 mg PO DAILY magnesium oxide 1 tab PO BID midodrine 5 mg PO QID vnsxvinp-lsj-VV-lycopen-lutein 0.4 mg-300 mcg- 250 mcg (CertaVite Senior) 1 tab PO DAILY pantoprazole 40 mg PO DAILY potassium chloride ER 10 mEq PO BID simvastatin 40 mg PO BEDTIME Symbicort 80-4.5 mcg/actuation (budesonide-formoterol) 2 puffs inhalation BID NS thiamine HCl (vitamin B1) (Vitamin B-1) 100 mg PO DAILY trazodone 50 mg PO BEDTIME Tobacco use date assessed: 12/24/24 Fall risk assessment: No Falls in past year Last assessed Fall Risk: 12/24/24 Dental Screening Dental Screen Date: 10/08/24 HPI [facility] 12/21 choking HPI Details 69-year-old female with past medical his tory hypothyroid, pseudoseizures, epilepsy, hypercholesterolemia, history of colon cancer, neurogenic bladder, COPD, IBS, history of pulmonary embolism last seen 11/2024 coming in for hospital follow up. Presenting with esophageal dysphagia. Recent choking episodes while eating led to multiple hospitalizations where airway obstructions were confirmed. She has had four esophageal dilation procedures; an endoscopy revealed an esophageal lesion, with further testing and biopsy scheduled for January 21. The dysphagia has caused significant difficulty swallowing and pain, with consequential weight loss due to inadequate nutritional intake. The patient continues to suffer from persistent diarrhea despite attempts to manage it with fiber supplements. There is a concurrent history of sciatica and pelvic pain significantly affecting mob ility, rights partially attributed to her surgical background. An essential tremor is observed when focusing, exacerbated by anxiety episodes. She also mentions while hospitalized she had multiple IVs placed and was advised to undergo consideration for port placement. [facility] Medical History (Updated 12/24/24 @ 12:20 by Era Erazo PA-C) History of colon cancer History of gastric cancer History of pulmonary embolus (PE) Acute suprapubic pain Neurogenic bladder, NOS COVID-19 Primary cancer of foot Pulmonary embolism Degenerative cervical disc Lumbar disc disease Celiac disease Pure hypercholesterolemia Epilepsy Hypothyroidism COPD (chronic obstructive pulmonary disease) Pseudoseizure Conversion disorder Colon cancer Paroxysmal A-fib Allergy to multiple drugs Deep vein thrombosis Surgical History (Updated 12/24/24 @ 12:06 by Era Erazo PA-C) History of endoscopy History of esophagogastroduodenoscopy (EGD) History of arthroplasty History of hysterectomy (~1979) Hx of cholecystectomy S/P IVC filter History of partial surgical removal of colon History of partial gastrectomy History of colectomy History of colostomy reversal History of bladder surgery History of sinus surgery History of facial surgery History of colonoscopy (~06/12/24) Family History Mother CAD (coronary artery disease) Other Mental health disorder Social History Household Members: None Household Members Other:: 1 Housing: Apartment Do you presently have visiting nurse or other home services: Yes Alcohol intake: former Patient Tobacco Use Status: Never used Tobacco e-Cigarette/Vaping Use: Never Used Second Hand Smoke Exposure: Yes Advance Directives Date on File: 08/08/23 service: No Current occupational status: disabled Cognitive needs: Yes (cane) Hearing needs: No Vision needs: Yes (Glasses) Questionnaire Thrive Questionnaire Date Thrive assessed: 10/08/24 EARNESTINE-7 AMB Questionnaire EARNESTINE-7 Date EARNESTINE - 7 assessed: 10/08/24 Source: Developed by Drs. Ranjit Valdovinos, Anila Baldwin, Saud Allison and colleagues, with an educational lionel from [employer]. Review of Systems Const Denies body aches, Denies chills, Denies fever(s), Denies headache(s) and Denies poor appetite Eyes Reports no additional complaints ENT Reports dysphagia (With globus sensation of the throat), Denies dizziness, Denies headache(s) and Denies odynophagia Card Denies chest pain, Denies lightheadedness and Denies dyspnea Resp Denies cough and Denies dyspnea GI Reports abdominal pain (Occasional), Denies constipation, Reports dysphagia (With globus sensation of the throat), Reports diarrhea, Denies nausea, Denies odynophagia and Denies vomiting Reports no additional complaints Musc Reports no additional complaints and Denies abnormal gait Skin/Breast Reports system reviewed and no additional complaints, except as documented Neuro Denies abnormal gait, Denies dizziness and Denies headache(s) Psych Reports no additional complaints Physical exam (Primary Care) Vital Signs: Last Vital Signs Temp 97.1 F 12/24/24 11:13 Pulse 89 12/24/24 11:13 BP 112/60 12/24/24 11:13 Pulse Ox 99 12/24/24 11:13 Oxygen Delivery Method Room Air 12/24/24 11:13 BMI result Body Mass Index 24.6 Tobacco/Smoking Status: Tobacco use Status Tobacco use date assessed 12/24/24 12/24/24 11:15 Patient Tobacco Use Status Never used Tobacco 12/24/24 11:15 e-Cigarette/Vaping Use Never Used 12/24/24 11:15 Thrive Assessment: Date of Thrive Assessment Date Thrive assessed 10/08/24 12/24/24 11:15 Const General: cooperative, healthy appearing, comfortable and no acute distress Orientation/consciousness: patient oriented x3 HENMT Head: Yes normocephalic Ears: hearing grossly normal bilaterally General nose exam: Normal external nose present Eyes General: appearance normal, both eyes and all related structures Conjunctivae: conjunctivae normal Neck Neck: Yes full ROM and Yes no lymphadenopathy Resp Effort & Inspection: normal respiratory effort Auscultation: clear to auscultation bilaterally, no crackles, no rales, no rhonchi and no wheezes Cardio Rate: regular rate Rhythm: regular rhythm Skin General skin exam: no rashes or lesions noted Neuro General: patient oriented x3 Gait exam (Neuro): Normal gait present Extrem General: Yes normal to inspection, Yes full ROM and No edema Psych Affect: normal affect Attitude: cooperative Insight: Good insight present (Psych) Judgement: Good judgement present (Psych) Coding Level of Care Code Est Pt Level 4 (23607) Diagnoses Poor intravenous access Z78.9 Dysphagia R13.10 Chronic diarrhea K52.9 Malabsorption K90.9 Essential tremor G25.0 Assessment & Plan Assessment & Plan (1) Poor intravenous access: Code(s): Z78.9 - Other specified health status Category: Medical Plan: Patient having poor IV access requiring ultrasound-guided IV placement during admission. Her last admission they recommended evaluation for possible Port-A-Cath placement referral was placed to Interventional Radiology today. (2) Dysphagia: Code(s): R13.10 - Dysphagia, unspecified Category: Medical Plan: Patient having dysphagia s/p esophageal dilation. Patient has had 4 esophageal dilations in the past. She is going for esophageal manometry in December with biopsy at that time of esophageal lesion. Plan to follow up with GI after the procedure. Due to dysphagia and inability to eat solid foods plan to send boost to [facility] pharmacy for meals supplementation (3) Chronic diarrhea: Code(s): K52.9 - Noninfective gastroenteritis and colitis, unspecified Category: Medical Plan: Patient having chronic diarrhea exacerbated by recent liquid diet. Advised patient to increase fiber intake to bind the stools and may use Imodium as needed but use caution has been do not want to slow motility. (4) Malabsorption: Code(s): K90.9 - Intestinal malabsorption, unspecified Category: Medical Plan: Patient has a history of malabsorption exacerbated by recent dysphagia plan to use boost for dietary supplement. (5) Essential tremor: Code(s): G25.0 - Essential tremor Category: Medical Plan: Patient has he will onset tremor over the last several weeks. Tremors observed on exam consistent with intention tremor. By 2 believe the tremor may be related to anxiety or stress. At this time plan to review labs and imaging completed at [facility]. She is declining primidone for medical management and is not a candidate for propranolol due to COPD. Continue to monitor and reviewed with patient red flag symptoms and when to present for re-evaluation. Plan Interventions for esophageal dysphagia will focus on nutritional supplementation with Ensure and managing intake of soft and liquid foods. The upcoming mobility test, including a biopsy, will assess the discovered esophageal lesion. Dehydration and diarrhea management will involve loperamide. We will initiate discussions with interventional radiology regarding port placement to avoid repeated peripheral IV insertions. Sciatica management will involve continued analgesic treatment and possible consultation with a surgeon given prior procedural history. This note was constructed using voice recognition software. While every effort has been made to ensure accuracy and irrigator sprinkling system, still areas may have been included sometimes these areas may affect the content or meeting of the given symptoms. Total time spent caring for the patient today was 20 minutes. This includes time spent before the visit reviewing the chart, time spent during the visit, and time spent after the visit and documentation. Patient was informed and verbally consented to the use of an ambient scribe for clinic note documentation during this visit. Orders: Referrals Interventional Radiology Referral Era Erazo PA-C Z45.2 - Encounter for adjustment and management of vascular access device, Z78.9 - Other specified health status Medications: New food supplemt, lactose-reduced (Boost High Protein) 1 ea PO QID 5,688 mL 3RF Era Erazo PA-C K90.9 - Intestinal malabsorption, unspecified, R13.10 - Dysphagia, unspecified loperamide (Imodium A-D) 2 mg PO Q6H PRN 14 caps 0RF loose stool Era Erazo PA-C Changed From midodrine 5 mg PO TID 90 tabs 0RF To midodrine 5 mg PO QID Bob Camp MD
[2024-12-24 11:13] VITALS: BP 112/60; PULSE 89; TEMP 36.2; O2SAT 99; BMI 24.6
--- OUTSIDE RECORDS SUMMARY | 2024-12-24 13:18 | XMS_ITS | Clinical Summary ---
Author Organization [facility] Address [address] [place] [address] Care Team Providers Care General Ledger Accountant Name Role Phone Bob Camp MD Primary Care Provider [phone]- [phone] Surgical History Surgery Date Site/Laterality Comments ABDOMINAL [...] (hypertension) 06/05/2012 DX:HTN (hyper tension) Pulmonary embolism 06/05/2012 DX:Pulmonary embolism (HCC) PTSD (post-traumatic stress disorder) 06/05/2012 DX:PTSD (post-traumatic stress disorder) A-fib (CMS/HCC) 06/05/2012 DX:A-fib (FORM[facility]LY [facility]) Chronic back pain 06/05/2012 DX:Chronic thao k pain Conversion disorder 06/05/2012 DX:Conversio n disorder Gastroparesis due to DM (CMS/HCC) 06/05/2012 DX:Gastroparesis due to DM (FORM[facility]LY [facility]) GERD (gastroesophageal reflux disease) 06/05/2012 DX:GERD (gastroesophageal reflux disease) Depressed 06/05/2012 DX:Depressed Myofascial pain syndrome 06/05/2012 DX:Myof ascial pain syndrome SGS (short gut syndrome) 06/05/2012 DX:SGS (short gut syndrome) SVT (supraventricular tachyc ardia) (CMS/HCC) 06/05/2012 DX:SVT (supraventricular tachycardia) (FORMERLY [facility]) Weight loss 06/05/2012 DX:Weight loss Anxiety 06/05/2012 [...] Vaccine (2023-2 5 season) 2024 Influenza Vaccine (Season Ended) 2025 RSV Immunization Adult Patie nts (1 - 1-dose 75+ series) 2031 HIB [...] Documents on File Type Date Recorded 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
== END 2024-12-24 11:58 | disposition home or self-care (01) ==
LOC: HO.HMCH 11:01
PROVIDERS: PCP Internal Medicine
DX: Z78.9 Other specified health status (principal); R13.10 Dysphagia, unspecified; K52.9 Noninfective gastroenteritis and colitis, unspecified; K90.9 Intestinal malabsorption, unspecified; G25.0 Essential tremor

== ENCOUNTER → 2024-12-24 11:00 | Outpatient (BNVA) | payer MEDICARE, SELFPAY | PROVIDERS: PCP Internal Medicine | DX: R13.10 Dysphagia, unspecified (principal); K52.9 Noninfective gastroenteritis and colitis, unspecified; K90.9 Intestinal malabsorption, unspecified; G25.0 Essential tremor; Z78.9 Other specified health status | CPT/HCPCS: 99212 ==

== ENCOUNTER 2025-01-16 13:52 | Outpatient (AMB) | payer MEDICARE, SELFPAY ==
[2025-01-16 13:57] VITALS: BP 90/58; PULSE 92; RESP 16; TEMP 37.1; O2SAT 99; BMI 24.6
--- NOTE | 2025-01-16 13:57 | MHC.PC.OV ---
Vital Signs 01/16/25 13:57 Height 5 ft Weight 126 lb BMI 24.6 BP 90/58 L Blood Pressure Location Lt brachial Position Sitting Respiration 16 Pulse 92 Pulse Source Pulse Oximeter Temp 98.7 F Temp Source Oral Pulse Oximetry (%) 99 Oxygen Delivery Method Room Air Intake Visit Reasons: [facility] 01/03 Trouble swallowing/pain in rectum Intake Note: Patient is here to follow-up after a visit the emergency department at [facility] in [place], [place] on 01/03/2025. Service Or Work Dispatcher Required: No Accompanied by: Self / Same As Patient Allergies erythromycin base [ERYTHROMYCIN BASE] Allergy (Severe, Verified 01/16/25 14:32) Anaphylaxis levofloxacin [From Levaquin] Allergy (Severe, Verified 01/16/25 14:32) Anaphylaxis Penicillins [PCN] Allergy (Severe, Verified 01/16/25 14:32) Anaphylaxis seafood Allergy (Severe, Verified 01/16/25 14:32) Anaphylaxis Sulfa (Sulfonamide Antibiotics) [SULFA (SULFONAMIDE ANTIBIOTICS)] Allergy (Severe, Verified 01/16/25 14:32) Anaphylaxis, vomiting Tetracyclines Allergy (Severe, Verified 01/16/25 14:32) Anaphylaxis gabapentin Allergy (Intermediate, Verified 01/16/25 14:32) Hives pregabalin [From Lyrica] Allergy (Intermediate, Verified 01/16/25 14:32) Hives divalproex sodium [Depakote] Allergy (Unknown, Verified 01/16/25 14:32) altered mental status gluten [GLUTEN] Allergy (Unknown, Verified 01/16/25 14:32) BLOATING,RASH rice Allergy (Verified 01/16/25 14:32) Unknown Medication List - Last Reconciled 01/16/25 by RONAL Christensen Advair HFA 115-21 mcg/actuation (fluticasone propion-salmeterol) 2 puffs inhalation Q12H NS albuterol sulfate 90 mcg/actuation 2 puffs inhalation Q6H PRN amitriptyline 25 mg PO BEDTIME 30 days apixaban (Eliquis) 5 mg PO BID 30 days cane As directed cholestyramine (with sugar) 4 gram 4 grams PO BID 30 days colostomy bags As directed [colostomy supplies As directed] cyanocobalamin (vitamin B-12) 3,000 mcg PO DAILY 90 days duloxetine 60 mg PO DAILY 90 days ferrous sulfate 325 mg PO DAILY food supplemt, lactose-reduced (Boost High Protein) 1 ea PO QID levetiracetam mg PO levetiracetam 750 mg PO BID 30 days levothyroxine 50 mcg PO DAILY loperamide (Imodium A-D) 2 mg PO Q6H PRN loratadine 10 mg PO DAILY magnesium oxide 1 tab PO BID midodrine 5 mg PO QID fdlzahhc-rpq-DZ-lycopen-lutein 0.4 mg-300 mcg- 250 mcg (CertaVite Senior) 1 tab PO DAILY omeprazole 40 mg PO DAILY pantoprazole 40 mg PO DAILY potassium chloride ER 10 mEq PO BID simvastatin 40 mg PO BEDTIME Symbicort 80-4.5 mcg/actuation (budesonide-formoterol) 2 puffs inhalation BID NS thiamine HCl (vitamin B1) (Vitamin B-1) 100 mg PO DAILY trazodone 50 mg PO BEDTIME Tobacco use date assessed: 01/16/25 Fall risk assessment: 2 + Falls in past year Last assessed Fall Risk: 01/16/25 Dental Screening Dental Screen Date: 01/16/25 Did you have a dental visit in the last 12 months?: No Did you have a dental problem in the last 6 months where you did not have access to dental care?: No Was dental information given to patient?: No HPI [facility] 01/03 Trouble swallowing/pain in rectum HPI Details The patient is a 69-year-old female presenting with postoperative pain, phantom pain, and dysphagia. Following a cystectomy and colostomy due to bladder cancer in March 2023, the patient describes severe pressure and pain reminiscent of the need to defecate in spite of having a colostomy performed forty-five years ago. This chronic pain is intense and disrupts her sleep and daily activities. Postoperatively, one leg has not regained function following nerve disruption during surgery, resulting in frequent falls. The patient patient worsened after bladder removal; pain feels like it would be where here rectum connects to her colon, but she does not have a rectum or anus. Per surgeon, there is nothing to do for pain or related surgery. The patient has considerable difficulty swallowing, contributing to nutritional deficiencies, including low potassium levels. Management with dietary protein supplements has faced logistical issues. Multiple medication allergies complicated the management strategy for both neuropathy and phantom pain: the patient has had adverse reactions, such as skin rashes, to gabapentin, pregabalin, and tramadol. Currently, arrangements for a nutritional port and high-protein supplementation are underway, and a screening colonoscopy for esophageal assessment has been scheduled due to ongoing swallowing difficulties. The reports that she is having trouble sitting due to the pain in the rectum she was constantly standing up during the visit. The patient reports that she is feeling a sever shooting pain where her anus used to be. She reports that she has been having trouble swallowing and eating hard foods. Reports that the pain in her rectum has been present since March of 2024. Reports that she has been back forth the hospital to find the cause without any answers. The patient reports that they gave her Dilaudid for pain in the hospital. The patient request boost plus to supplement for meals, since she is unable to eat. The patient is requesting to be sent to [facility] for PT, reports that she lives close and they already evaluated her. [facility], [facility] Medical History History of colon cancer History of gastric cancer History of pulmonary embolus (PE) Acute suprapubic pain Neurogenic bladder, NOS COVID-19 Primary cancer of foot Pulmonary embolism Degenerative cervical disc Lumbar disc disease Celiac disease Pure hypercholesterolemia Epilepsy Hypothyroidism COPD (chronic obstructive pulmonary disease) Pseudoseizure Conversion disorder Colon cancer Paroxysmal A-fib Allergy to multiple drugs Deep vein thrombosis Surgical History History of endoscopy History of esophagogastroduodenoscopy (EGD) History of arthroplasty History of hysterectomy (~1979) Hx of cholecystectomy S/P IVC filter History of partial surgical removal of colon History of partial gastrectomy History of colectomy History of colostomy reversal History of bladder surgery History of sinus surgery History of facial surgery History of colonoscopy (~06/12/24) Family History Mother CAD (coronary artery disease) Other Mental health disorder Social History Household Members: None Household Members Other:: 1 Housing: Apartment Do you presently have visiting nurse or other home services: Yes Alcohol intake: former Patient Tobacco Use Status: Never used Tobacco e-Cigarette/Vaping Use: Never Used Second Hand Smoke Exposure: Yes Advance Directives Date on File: 08/08/23 service: No Current occupational status: disabled Cognitive needs: Yes (cane) Hearing needs: No Vision needs: Yes (Glasses) Questionnaire PHQ-9 Over the last 2 weeks, how often have you been bothered by any of the following problems? 1. Little interest or pleasure in doing things: not at all 2. Feeling down, depressed, or hopeless: not at all 3. Trouble falling or staying asleep, or sleeping too much: several days 4. Feeling tired or having little energy: several days 5. Poor appetite or overeating: several days 6. Feeling bad about yourself - or that you are a failure or have let yourself or your family down: not at all 7. Trouble concentrating on things, such as reading the newspaper or watching television: not at all 8. Moving or speaking so slowly that other people could have noticed. Or the opposite - being so fidgety or restless that you have been moving around a lot more than usual: not at all 9. Thoughts that you would be better off or of hurting yourself in some way: not at all Total score: 3 Depression Screening Interpretation: Negative Depression Screening Done: Yes Source: Developed by Drs. Ranjit Valdovinos, Anila Baldwin, Saud Allison and colleagues, with an educational lionel from [employer]. Thrive Questionnaire Date Thrive assessed: 01/16/25 I am a: Patient What is your living situation today?: I have a steady place to live Within the past 12 months, did the food you bought not last and you didn't have the money to get more?: Never true Within the past 12 months, did you worry whether your food would run out before you got money to buy more?: Never true Do you have trouble paying for medicines?: No Do you have trouble getting transportation to medical appointments?: Yes Do you have trouble paying your heating and electricity bill?: No Do you have trouble taking care of your child, family member or friend?: No Do you have trouble with day-to-day activities such as bathing, preparing meals, shopping, managing finances, etc.?: No Are you currently unemployed and looking for a job?: No Are you interested in more education?: No Please select the resources that you would like help with: None Currently or been in a relationship where the following occur: No concerns reported THRIVE Score: 1 AUDIT C Alcohol Use Questionnaire (AUDIT-C) 1. How often do you have a drink containing alcohol?: Never Total Score: 0 Score Reviewed/Action Taken: No EARNESTINE-7 AMB Questionnaire EARNESTINE-7 Date EARNESTINE - 7 assessed: 01/16/25 Feeling nervous, anxious, or on edge: 0 = Not at all Not being able to stop or control worryin = Not at all Worrying too much about different things: 0 = Not at all Trouble relaxin = Not at all Being so restless that it is hard to sit still: 1 = Several days Becoming easily annoyed or irritable: 1 = Several days Feeling afraid as if something awful might happen: 0 = Not at all Total EARNESTINE-7 score (0-4 normal; 5-9 mild; 10-14 moderate; 15-21 severe): 2 Source: Developed by Drs. Ranjit Valdovinos, Anila Baldwin, Saud Allison and colleagues, with an educational lionel from [employer]. Review of Systems Const Reports fatigue (unable to sleep due to chronic pain), Reports frequent falls (from neuropathy in bilateral legs) and Denies headache(s) Eyes Denies loss of vision ENT Denies vertigo, Denies dizziness, Denies headache(s), Reports odynophagia and Denies sore throat Card Denies chest pain, Denies leg edema and Denies lightheadedness Resp Denies cough, Denies hemoptysis and Denies wheezing GI Denies abdominal pain, Denies melena, Denies diarrhea, Reports odynophagia, Denies vomiting and Reports other (post rectum area pain) Denies urinary frequency, Denies dysuria and Denies urinary urgency Musc Denies arthralgias, Denies joint swelling, Denies numbness, Reports radiating pain into limb (bilateral leg) and Denies tingling Neuro Denies Abnormal speech present, Denies vertigo, Denies dizziness, Reports frequent falls (from neuropathy in bilateral legs), Denies headache(s), Denies loss of vision, Denies numbness and Denies tingling Endo Reports fatigue (unable to sleep due to chronic pain) Aller/Immun Denies wheezing Physical exam (Primary Care) Vital Signs: Last Vital Signs Temp 98.7 F 01/16/25 13:57 Pulse 92 01/16/25 13:57 Resp 16 01/16/25 13:57 BP 90/58 L 01/16/25 13:57 Pulse Ox 99 01/16/25 13:57 Oxygen Delivery Method Room Air 01/16/25 13:57 BMI result Body Mass Index 24.6 Tobacco/Smoking Status: Tobacco use Status Tobacco use date assessed 01/16/25 01/16/25 14:10 Patient Tobacco Use Status Never used Tobacco 01/16/25 14:10 e-Cigarette/Vaping Use Never Used 01/16/25 14:10 PHQ-9: PHQ-9 Score PHQ-9: Total score 3 01/19/25 09:22 Depression Screening Interpretation: Negative Thrive Assessment: Date of Thrive Assessment Date Thrive assessed 01/16/25 01/16/25 14:10 Currently or been in a relationship where the following occur: No concerns reported Const General: alert, awake and acute distress Orientation/consciousness: oriented to person, oriented to place and oriented to time HENMT Ears: external ears normal General nose exam: Normal external nose present Eyes Conjunctivae: conjunctivae normal Sclerae: sclerae normal Pupils: Equal, round and reactive pupils present Neck Neck: Yes no lymphadenopathy and Yes no JVD Thyroid: Thyroid normal Carotids: no bruits Resp Effort & Inspection: normal respiratory effort and not tachypneic Auscultation: no crackles, no rales, no rhonchi and no wheezes Cardio Rate: regular rate Rhythm: regular rhythm Heart sounds: no murmurs and normal S1 and S2 GI Inspection: Yes other (colonoscopy in place) Palpation (GI): Soft to palpation, nontender, no hepatomegaly and no splenomegaly Auscultation: normal bowel sounds External Female Exam: other (urostomy in place) Skin General skin exam: no rashes or lesions noted and dry skin Neuro General: oriented to person, oriented to place and oriented to time Cranial nerves: Yes Equal, round and reactive pupils present Speech: No Abnormal speech present Gait exam (Neuro): Normal gait present Motor exam (neuro): no tremor noted Extrem Right upper extremity: full ROM Left upper extremity: full ROM Right lower extremity: full ROM; no edema Left lower extremity: full ROM; no edema Psych Mental Status: mental status grossly normal Speech and movement: Normal speech and movement present Affect: normal affect Attitude: cooperative Thought process: Normal thought process present Coding Level of Care Code Est Pt Level 4 (67292) Diagnoses Pain in pelvis R10.2 Dysphagia, unspecified type R13.10 Dysphagia type: unspecified Falls frequently R29.6 Time Spent (min) 39 Assessment & Plan Assessment & Plan (1) Pain in pelvis: Code(s): R10.2 - Pelvic and perineal pain Category: Medical Plan: Severe pelvic pain that is affecting her life to the point of depression, started after bladder removal surgery, but surgeon said noting to do for pain or related to surgery. Per patient, the patient feels like it would be where her rectum connects to her colon, but the patient does not have a rectum or anus. Reports that a MRI was ordered at [facility], pending completion. The pt reports that she needs something for the pain. Tramadol 50 mg BID prn ordered (2) Dysphagia: Code(s): R13.10 - Dysphagia, unspecified Category: Medical Qualifiers: Dysphagia type: unspecified Qualified Code(s): R13.10 - Dysphagia, unspecified Plan: s/p dilation with follow up EGD 01/21, boost plus supplements ordered per request. She is unable to tolerate regular foods. (3) Falls frequently: Code(s): R29.6 - Repeated falls Category: Medical Plan: PT referral placed. The patient asked for this to be done at [facility], close to where she lives and she already been evaluated by them. Plan The management of the patient's severe postoperative pain requires returning to the emergency as required since the typical analgesics are not suitable due to allergies. Nutritional challenges stemming from dysphagia are being addressed with supplemental nutrition, and accurate arrangements for the placement of a port at [facility] have been discussed. Despite ongoing physical therapy for neuropathy, falls remain a concern. Local surgical evaluation is suggested to investigate potential surgical complications. The complexity of the patient's condition, including her allergies and multiple surgeries, necessitates specially tailored interventions and close monitoring. Patient was informed and verbally consented to the use of an ambient scribe for clinic note documentation during this visit. Orders: Orders PT Evaluation and Treatment Today R29.6 - Repeated falls Medications: New tramadol 50 mg PO BID PRN 30 tabs 0RF pain [Boost Plus Supplement] As directed Drink one supplement two times a day 60 ea 4RF R13.10 - Dysphagia, unspecified Refilled apixaban (Eliquis) 5 mg PO BID 30 days 60 tabs 0RF
--- OUTSIDE RECORDS SUMMARY | 2025-01-16 14:37 | XMS_ITS | Clinical Summary ---
Author Organization Unknown Care Team Providers Care School Lunch Monitor Name Role Phone FEDERICO PAUL, MIKO Unavailable Unavailab oscar SERRANO RN, BARR[place] Unavailable Unavailable LINO KIMN, LUI Unavailable Unavailable JANUARY PT, DONN Unavailable Unavailable OBINNA BLEACH MIXER, JOSÉ ANTONIO Unavailable Unavailable ALISA ALLEN, WAQAS Unavailable Unavailable Payers Payer Name Policy Type Policy Number Effective Date Expira tion Date [facility] [id number] Problems Condition Name Condition Details Condition Category Status Onset Date Resolution Date Last Treatment Date Treating Clinician Comments ENCOUNTER FOR ATTENTION TO COLOSTOMY Active 12-22 00:00: 00 OTHER CHRONIC PAIN Active - 00:00: 00 UNSPECIFIED ABDOMINAL PAIN Active 12-22 00:00: 00 ESOPHAGEAL OBSTRUCTION Active 12-22 00:00: 00 DYSPHAGIA, UNSPECIFIED Active 12-20 00:00: 00 POST-TRAUMAT IC STRESS DISORDER, UNSPECIFIED Active - 00:00: 00 HYPOTHYROIDI SM, UNSPECIFIED Active 12-22 00:00: 00 FOOT DROP, RIGHT FOOT Active - 00:00: 00 MAJOR DEPRESSIVE DISORDER, SINGLE EPISODE, UNSPECIFIED Active 12-22 00:00: 00 OTHER HYPOTENSION Active 1- 00:00: 00 GASTRO-ESOPH AGEAL REFLUX DISEASE WITHOUT ESOPHAGITIS Active 12-22 00:00: 00 LUMBAGO WITH SCIATICA, RIGHT SIDE Active 1- 00:00: 00 CONVERSION DISORDER WITH SEIZURES OR CONVULSIONS Active - 00:00: 00 OTHER SPECIFIED DISEASES OF BILIARY TRACT Active 1- 00:00: 00 PERSONAL HISTORY OF MALIGNANT NEOPLASM OF LARGE INTESTINE Active 09-24 00:00: 00 PERSONAL HISTORY OF MALIGNANT NEOPLASM OF BLADDER Active 09-24 00:00: 00 PERSONAL HISTORY OF OTHER MALIGNANT NEOPLASM OF STOMACH Active 09-24 00:00: 00 ENCOUNTER FOR ATTN TO OTH ARTIF OPENINGS OF URINARY TRACT Active 09-24 00:00: 00 PERSONAL HISTORY OF PULMONARY EMBOLISM Active 12-22 00:00: 00 QUALITY ASSURANCE DIRECTOR (CURRENT) USE OF ANTICOAGULAN TS Active 12-22 00:00: 00 PERSONAL HISTORY OF OTHER VENOUS THROMBOSIS AND EMBOLISM Active 09-24 00:00: 00 Allergies, Adverse Reactions, Alerts Allergy Name Allergy Type Status Severity Reaction(s) Onset Date Inactive Date Treating Clinician Comments MOTRIN IB Propensity to adverse reactions Active 12-23 22:06: 59 GLUTEN Propensity to adverse reactions Active 12-23 22:07: 12 DEPAKOTE Propensity to adverse reactions Active 12-23 22:07: 22 TETRACYCLINE ANALOGUES Propensity to adverse reactions Active 12-23 22:07: 31 MACROBID Propensity to adverse reactions Active 12-23 22:07: 38 GABAPENTIN Propensity to adverse reactions Active 12-23 22:08: 05 WHITE RICE Propensity to adverse reactions Active 12-23 22:08: 41 RIFAMPIN Propensity to adverse reactions Active 12-23 22:08: 53 CEFPODOXIME Propensity to adverse reactions Active 12-23 22:09: 11 FISH PRODUCT DERIVATIVES Propensity to adverse reactions Active 12-23 22:09: 19 CLINDAMYCIN Propensity to adverse reactions Active 12-23 22:09: 32 OXACILLIN Propensity to adverse reactions Active 12-23 22:09: 42 DOXYCYCLINE Propensity to adverse reactions Active 12-23 22:09: 57 LEVAQUINE Propensity to adverse reactions Active 12-23 22:10: 05 VANCOMYCIN Propensity to adverse reactions Active 12-23 22:10: 16 AMOXCICILIN Propensity to adverse reactions Active 12-23 22:10: 34 CODEINE Propensity to adverse reactions Active 12-23 22:10: 53 ERYTHROMYCIN BASE Propensity to adverse reactions Active 12-23 22:11: 11 SULFA (SULFONAMIDE S) Propensity to adverse reactions Active 12-23 22:11: 25 Medications Ordered Medication Name Filled Medication Name Start Date Stop Date Current Medication? Ordering Clinician Indication Dosage Frequency Signature (SIG) Comments Components hydromorpho ne 2 mg tablet 2023-09 00:00: 00 09-11 00:00 :00 No [id number] Per instruc tions Per instructio ns (route: oral) Med Classific ation: Analgesic , Anti-infl ammatory or Antipyret ic ondansetron HCl 4 mg tablet 2023-09 00:00: 00 09-11 00:00 :00 No [id number] Per instruc tions Per instructio ns (route: oral) Med Classific ation: Gastroint estinal Therapy Agents albuterol sulfate HFA 90 mcg/actuati on aerosol inhaler 2023-09 00:00: 00 09-11 00:00 :00 No [id number] Per instruc tions Per instructio ns (route: inhalation ) Med Classific ation: Respirato ry Therapy Agents levetiracet am 100 mg/mL oral solution 2023-09 00:00: 00 09-11 00:00 :00 No [id number] Per instruc tions Per instructio ns (route: oral) Med Classific ation: Central Nervous System Agents albuterol sulfate HFA 90 mcg/actuati on aerosol inhaler 2023-09 00:00: 00 12-19 23:59 :00 No [id number] WHEEZING 1 puff EVERY 6 HOURS 1 puff EVERY 6 HOURS (route: inhalation ) Med Classific ation: Respirato ry Therapy Agents budesonide- formoterol HFA 80 mcg-4.5 mcg/actuati on aerosol inhaler 2023-09 00:00: 00 12-19 23:59 :00 No [id number] COPD 2 puff 2 TIMES DAILY 2 puff 2 TIMES DAILY (route: inhalation ) Med Classific ation: Respirato ry Therapy Agents dicyclomine 10 mg tablet 2023-09 00:00: 00 12-19 23:59 :00 No [id number] SPASM 10 mg 3 TIMES DAILY 10 mg 3 TIMES DAILY (route: oral) Med Classific ation: Gastroint estinal Therapy Agents duloxetine 60 mg capsule,del ayed release 2023-09 00:00: 00 12-19 23:59 :00 No [id number] ANTIDEPRESS ANT 1 capsule DAILY 1 capsule DAILY (route: oral) Med Classific ation: Central Nervous System Agents Eliquis 5 mg tablet 2023-09 00:00: 00 12-19 23:59 :00 No [id number] PREVENTS BLOOD CLOTS 1 tablet 2 TIMES DAILY 1 tablet 2 TIMES DAILY (route: oral) Med Classific ation: Hematolog ical Agents ferrous sulfate 325 mg (65 mg iron) tablet 2023-09 00:00: 00 12-19 23:59 :00 No [id number] SUPPLEMENT 1 tablet DAILY 1 tablet DAILY (route: oral) Med Classific ation: Electroly te Balance-N utritiona l Products hydromorpho ne 2 mg tablet 2023-09 00:00: 00 12-19 23:59 :00 No [id number] PAIN MANAGEMENT 1 tablet EVERY 12 HOURS 1 tablet EVERY 12 HOURS (route: oral) Med Classific ation: Analgesic , Anti-infl ammatory or Antipyret ic Keppra 100 mg/mL oral solution 2023-09 00:00: 00 12-19 23:59 :00 No [id number] PREVENTS SEIZURES 7.5 mL 2 TIMES DAILY 7.5 mL 2 TIMES DAILY (route: oral) Med Classific ation: Central Nervous System Agents levothyroxi ne 50 mcg tablet 2023-09 00:00: 00 12-19 23:59 :00 No [id number] HYPOTHYROID 1 tablet DAILY 1 tablet DAILY (route: oral) Med Classific ation: Endocrine loperamide 2 mg tablet 2023-09 00:00: 00 12-19 23:59 :00 No [id number] LOOSE STOOLS 1 tablet 4 TIMES DAILY 1 tablet 4 TIMES DAILY (route: oral) Med Classific ation: Gastroint estinal Therapy Agents midodrine 5 mg tablet 2023-09 00:00: 00 12-19 23:59 :00 No [id number] RAISES BLOOD PRESSURE 2 tablet DAILY 2 tablet DAILY (route: oral) Med Classific ation: Cardiovas cular Therapy Agents multivitami n tablet 2023-09 00:00: 00 12-19 23:59 :00 No [id number] SUPPLEMENT 1 tablet DAILY 1 tablet DAILY (route: oral) Med Classific ation: Electroly te Balance-N utritiona l Products naloxone 4 mg/actuatio n nasal spray 2023-09 00:00: 00 12-19 23:59 :00 No [id number] TO REVERSE OPIOID OVERDOSE 1 spray NEEDED 1 spray NEEDED (route: nasal) Med Classific ation: Antidotes and other Reversal Agents ondansetron 4 mg disintegrat ing tablet 2023-09 00:00: 00 12-19 23:59 :00 No [id number] NAUSEA/VOMI TING 1 tablet EVERY 8 HOURS 1 tablet EVERY 8 HOURS (route: oral) Med Classific ation: Gastroint estinal Therapy Agents pantoprazol e 40 mg tablet,amara yed release 2023-09 00:00: 00 12-19 23:59 :00 No [id number] GERD 1 tablet DAILY 1 tablet DAILY (route: oral) Med Classific ation: Gastroint estinal Therapy Agents simvastatin 40 mg tablet 2023-09 00:00: 00 12-19 23:59 :00 No [id number] LOWERS CHOLESTEROL 1 tablet BEDTIME 1 tablet BEDTIME (route: oral) Med Classific ation: Cardiovas cular Therapy Agents thiamine HCl (vitamin B1) 100 mg tablet 2023-09 00:00: 00 12-19 23:59 :00 No [id number] SUPPLEMENT 1 tablet DAILY 1 tablet DAILY (route: oral) Med Classific ation: Electroly te Balance-N utritiona l Products trazodone 50 mg tablet 2023-09 00:00: 00 12-19 23:59 :00 No [id number] IMPROVES SLEEP 1 tablet BEDTIME 1 tablet BEDTIME (route: oral) Med Classific ation: Central Nervous System Agents pantoprazol e 40 mg tablet,amara yed release 12-12 00:00: 00 Yes [id number] GERD 1 tablet DAILY 1 tablet DAILY (route: oral) Med Classific ation: Gastroint estinal Therapy Agents cholestyram ine (with sugar) 4 gram powder for susp in a packet 12-08 00:00: 00 01-05 23:59 :00 No [id number] HIGH CHOLESTERL 4 g DAILY 4 g DAILY (route: oral) Med Classific ation: Cardiovas cular Therapy Agents duloxetine 60 mg capsule,del ayed release 12-08 00:00: 00 Yes [id number] DEPRESSION 1 capsule DAILY 1 capsule DAILY (route: oral) Med Classific ation: Central Nervous System Agents fluticasone propionate 115 mcg-salmete rol 21 mcg/actuati on HFA inhaler 12-08 00:00: 00 Yes [id number] WHEEZING/SO B 2 puff 2 TIMES DAILY 2 puff 2 TIMES DAILY (route: inhalation ) Med Classific ation: Respirato ry Therapy Agents levetiracet am 750 mg tablet 12-08 00:00: 00 12-22 00:00 :00 No [id number] Per instruc tions Per instructio ns (route: oral) Med Classific ation: Central Nervous System Agents levothyroxi ne 50 mcg tablet 12-08 00:00: 00 Yes [id number] HYPOTHYROID ISM 1 tablet EVERY AM 1 tablet EVERY AM (route: oral) Med Classific ation: Endocrine omeprazole 40 mg capsule,del ayed release 12-08 00:00: 00 Yes [id number] GERD 1 capsule DAILY 1 capsule DAILY (route: oral) Med Classific ation: Gastroint estinal Therapy Agents thiamine HCl (vitamin B1) 100 mg tablet 12-08 00:00: 00 Yes [id number] SUPPLEMENT 1 tablet DAILY 1 tablet DAILY (route: oral) Med Classific ation: Electroly te Balance-N utritiona l Products trazodone 50 mg tablet 12-05 00:00: 00 Yes [id number] INSOMNIA 1 tablet BEDTIME 1 tablet BEDTIME (route: oral) Med Classific ation: Central Nervous System Agents hydromorpho ne 4 mg tablet 11-27 00:00: 00 01-05 23:59 :00 No [id number] PAIN 0.5 tablet EVERY 8 HOURS 0.5 tablet EVERY 8 HOURS (route: oral) Med Classific ation: Analgesic , Anti-infl ammatory or Antipyret ic ondansetron HCl 4 mg tablet 11-27 00:00: 00 12-22 00:00 :00 No [id number] Per instruc tions EVERY 8 HOURS NEEDED Per instructio ns EVERY 8 HOURS NEEDED (route: oral) Med Classific ation: Gastroint estinal Therapy Agents amitriptyli ne 25 mg tablet 11-24 00:00: 00 Yes [id number] DEPRESSION 1 tablet BEDTIME 1 tablet BEDTIME (route: oral) Med Classific ation: Central Nervous System Agents albuterol sulfate HFA 90 mcg/actuati on aerosol inhaler 12-22 00:00: 00 Yes [id number] SOB/WHEEZIN G 2 puff EVERY 6 HOURS 2 puff EVERY 6 HOURS (route: inhalation ) Med Classific ation: Respirato ry Therapy Agents cyanocobala min (vit B-12) 1,000 mcg tablet 12-22 00:00: 00 Yes [id number] SUPPLEMENT 1 tablet DAILY 1 tablet DAILY (route: oral) Med Classific ation: Electroly te Balance-N utritiona l Products dicyclomine 20 mg tablet 12-22 00:00: 00 Yes [id number] SPASMS 1 tablet 4 TIMES DAILY 1 tablet 4 TIMES DAILY (route: oral) Med Classific ation: Gastroint estinal Therapy Agents Eliquis 2.5 mg tablet 12-22 00:00: 00 Yes [id number] BLOOD THINNER 2 tablet 2 TIMES DAILY 2 tablet 2 TIMES DAILY (route: oral) Med Classific ation: Hematolog ical Agents levetiracet am 100 mg/mL oral solution 12-22 00:00: 00 Yes [id number] SEIZURES 7.5 mL 2 TIMES DAILY 7.5 mL 2 TIMES DAILY (route: oral) Med Classific ation: Central Nervous System Agents loperamide 2 mg capsule 12-22 00:00: 00 Yes [id number] DIARRHEA 1 capsule 4 TIMES DAILY 1 capsule 4 TIMES DAILY (route: oral) Med Classific ation: Gastroint estinal Therapy Agents midodrine 5 mg tablet 12-22 00:00: 00 Yes [id number] LOW BLOOD PRESSURE 1 tablet 3 TIMES DAILY 1 tablet 3 TIMES DAILY (route: oral) Med Classific ation: Cardiovas cular Therapy Agents multivitami n tablet 12-22 00:00: 00 Yes [id number] SUPPLEMENT 1 tablet DAILY 1 tablet DAILY (route: oral) Med Classific ation: Electroly te Balance-N utritiona l Products naloxone 4 mg/actuatio n nasal spray 12-22 00:00: 00 Yes [id number] OPIOID OVERDOSE Per instruc tions DIRECTED Per instructio ns DIRECTED (route: nasal) Med Classific ation: Antidotes and other Reversal Agents simvastatin 40 mg tablet 12-22 00:00: 00 Yes [id number] HIGH CHOLESTEROL 1 tablet EVERY PM 1 tablet EVERY PM (route: oral) Med Classific ation: Cardiovas cular Therapy Agents Dilaudid 4 mg tablet 01-05 00:00: 00 Yes [id number] PAIN 1 tablet 4 TIMES DAILY 1 tablet 4 TIMES DAILY (route: oral) Med Classific ation: Analgesic , Anti-infl ammatory or Antipyret ic Vital Signs Vital Name Observation Time Observation Value Commen ts Temperature 2025-01-13 09:43:00.000 97.2 [degF] Temperature 2025-01-13 04:31:00.000 97.4 [degF] Temperature 2025-01-05 11:41:00.000 97.8 [degF] Temperature 2024-12-30 12:08:00.000 97.6 [degF] Temperature 2024-12-29 16:36:00.000 97.4 [degF] Temperature 2024-12-29 13:11:00.000 97.5 [degF] Temperature 2024-12-22 16:22:00.000 97.9 [degF] BMI (%) 2025-01-05 11:33:08.000 22 kg/m2 BMI (%) 2024-12-22 15:46:26.000 23 kg/m2 Height 2025-01-05 11:32:58.000 60 [in_us] Height 2024-12-22 15:46:19.000 60 [in_us] Pulse 2025-01-13 09:43:00.000 98 /min Pulse 2025-01-13 04:31:00.000 95 /min Pulse 2025-01-05 11:41:00.000 91 /min Pulse 2024-12-30 12:08:00.000 90 /min Pulse 2024-12-29 16:36:00.000 98 /min Pulse 2024-12-29 13:11:00.000 88 /min Pulse 2024-12-22 16:22:00.000 80 /min O2 Saturation (%) 2025-01-13 09:43:00.000 98 % O2 Saturation (%) 2025-01-13 04:31:00.000 96 % O2 Saturation (%) 2025-01-05 11:41:00.000 98 % O2 Saturation (%) 2024-12-30 12:08:00.000 96 % O2 Saturation (%) 2024-12-29 16:36:00.000 98 % O2 Saturation (%) 2024-12-29 13:11:00.000 99 % O2 Saturation (%) 2024-12-22 16:22:00.000 96 % Respirations 2025-01-13 09:43:00.000 18 /min Respirations 2025-01-13 04:31:00.000 18 /min Respirations 2025-01-05 11:41:00.000 18 /min Respirations 2024-12-30 12:08:00.000 18 /min Respirations 2024-12-29 16:36:00.000 18 /min Respirations 2024-12-29 13:11:00.000 18 /min Respirations 2024-12-22 16:22:00.000 18 /min Weight (lbs) 2025-01-05 11:33:08.000 116 [lb_av] Weight (lbs) 2024-12-22 15:46:26.000 118 [lb_av] Systolic Blood Pressure 2025-01-13 09:43:00.000 110 mm [Hg] Systolic Blood Pressure 2025-01-13 04:31:00.000 106 mm [Hg] Systolic Blood Pressure 2025-01-05 11:41:00.000 94 mm[ Hg] Systolic Blood Pressure 2024-12-30 12:08:00.000 100 mm [Hg] Systolic Blood Pressure 2024-12-29 16:36:00.000 120 mm [Hg] Systolic Blood Pressure 2024-12-29 13:11:00.000 102 mm [Hg] Systolic Blood Pressure 2024-12-22 16:22:00.000 102 mm [Hg] Diastolic Blood Pressure 2025-01-13 09:43:00.000 60 mm [Hg] Diastolic Blood Pressure 2025-01-13 04:31:00.000 64 mm [Hg] Diastolic Blood Pressure 2025-01-05 11:41:00.000 72 mm [Hg] Diastolic Blood Pressure 2024-12-30 12:08:00.000 62 mm [Hg] Diastolic Blood Pressure 2024-12-29 16:36:00.000 62 mm [Hg] Diastolic Blood Pressure 2024-12-29 13:11:00.000 68 mm [Hg] Diastolic Blood Pressure 2024-12-22 16:22:00.000 68 mm [Hg] Plan of Treatment Planned Activity Planned Date Details Comments Future Scheduled Test RN TO OBSE RVE, ASSESS, EVALUATE, AND DEVELOP AN INDIVIDUALIZED PLAN OF CARE. AGENCY MAY ACCEPT ORDERS FROM CONSULTING PHYSICIANS. RN TO OBSERVE AND ASSESS, CROZER OPERATOR/BUDGET RECORD CLERK TO OBSERVE FOR RISK FOR FALLS AND INSTRUCT IN FALL PREVENTION, HOME SAFETY, MEDICATION MANAGEMENT, INFECTION PREVENTION, AND NUTRITION MANAGEMENT. RN/CROZER OPERATOR/BUDGET RECORD CLERK NURSE MAY PERFORM O2 SATURATION LEVEL ON ADMISSION AND PRN FOR RN TO ASSESS/CROZER OPERATOR TO OBSERVE PATIENT, WITH NOTIFICATION TO THE PHYSICIAN IF SATURATION IS 90% IN THE ABSENCE OF MORE SPECIFIC PARAMETERS FROM THE PHYSICIAN. AGENCY MAY PERFORM A RESUMPTION OF CARE VISIT FOLLOWING ANY HOSPITAL ADMISSION. RN/CROZER OPERATOR/BUDGET RECORD CLERK TO MONITOR CO-MORBID CONDITIONS LISTED ON THE PLAN OF CARE AND ANY NEW CONDITIONS THAT PRESENT THEMSELVES DURING THIS EPISODE TO IDENTIFY CHANGES AND INTERVENE TO MINIMIZE COMPLICATIONS. [code = RN TO OBSERVE, ASSESS, EVALUATE, AND DEVELOP AN INDIVIDUALIZED PLAN OF CARE. AGENCY MAY ACCEPT ORDERS FROM CONSULTING PHYSICIANS. RN TO OBSERVE AND ASSESS, CROZER OPERATOR/BUDGET RECORD CLERK TO OBSERVE FOR RISK FOR FALLS AND INSTRUCT IN FALL PREVENTION, HOME SAFETY, MEDICATION MANAGEMENT, INFECTION PREVENTION, AND NUTRITION MANAGEMENT. RN/CROZER OPERATOR/BUDGET RECORD CLERK NURSE MAY PERFORM O2 SATURATION LEVEL ON ADMISSION AND PRN FOR RN TO ASSESS/CROZER OPERATOR TO OBSERVE PATIENT, WITH NOTIFICATION TO THE PHYSICIAN IF SATURATION IS 90% IN THE ABSENCE OF MORE SPECIFIC PARAMETERS FROM THE PHYSICIAN. AGENCY MAY PERFORM A RESUMPTION OF CARE VISIT FOLLOWING ANY HOSPITAL ADMISSION. RN/CROZER OPERATOR/BUDGET RECORD CLERK TO MONITOR CO-MORBID CONDITIONS LISTED ON THE PLAN OF CARE AND ANY NEW CONDITIONS THAT PRESENT THEMSELVES DURING THIS EPISODE TO IDENTIFY CHANGES AND INTERVENE TO MINIMIZE COMPLICATIONS.] Future Scheduled Test RISK FOR H OSPITALIZATION; RN TO ASSESS/TEACH, BUDGET RECORD CLERK/CROZER OPERATOR TO OBSERVE/TEACH PATIENT/CAREGIVER ON RISK FOR HOSPITALIZATION/EMERGENCY ROOM VISITS, TEACH SIGNS AND SYMPTOMS THAT PUT PATIENT AT RISK, WHEN TO NOTIFY NURSE/PHYSICIAN OF COMPLICATIONS/DECLINE, AND WHEN TO CALL 911. [code = RISK FOR HOSPITALIZATION; RN TO ASSESS/TEACH, BUDGET RECORD CLERK/CROZER OPERATOR TO OBSERVE/TEACH PATIENT/CAREGIVER ON RISK FOR HOSPITALIZATION/EMERGENCY ROOM VISITS, TEACH SIGNS AND SYMPTOMS THAT PUT PATIENT AT RISK, WHEN TO NOTIFY NURSE/PHYSICIAN OF COMPLICATIONS/DECLINE, AND WHEN TO CALL 911.] Future Scheduled Test MEDICATION MANAGEMENT; RN/CROZER OPERATOR/BUDGET RECORD CLERK TO REVIEW MEDICATIONS FOR INTERACTIONS, EFFECTIVENESS OF DRUG THERAPY, AND SIGNS/SYMPTOMS OF ADVERSE REACTIONS. MAY INSTRUCT AND REINFORCE MEDICATION TEACHING RELATED TO THE USE OF MEDICATIONS, DOSAGE, FREQUENCY, PURPOSE, SIDE EFFECTS, AND TO REPORT COMPLICATIONS. [code = MEDICATION MANAGEMENT; RN/CROZER OPERATOR/BUDGET RECORD CLERK TO REVIEW MEDICATIONS FOR INTERACTIONS, EFFECTIVENESS OF DRUG THERAPY, AND SIGNS/SYMPTOMS OF ADVERSE REACTIONS. MAY INSTRUCT AND REINFORCE MEDICATION TEACHING RELATED TO THE USE OF MEDICATIONS, DOSAGE, FREQUENCY, PURPOSE, SIDE EFFECTS, AND TO REPORT COMPLICATIONS.] Future Scheduled Test PAIN MANAG EMENT; RN TO ASSESS AND TEACH, BUDGET RECORD CLERK/CROZER OPERATOR TO OBSERVE AND TEACH AND PROVIDE EDUCATION ON PAIN MANAGEMENT TECHNIQUES. [code = PAIN MANAGEMENT; RN TO ASSESS AND TEACH, BUDGET RECORD CLERK/CROZER OPERATOR TO OBSERVE AND TEACH AND PROVIDE EDUCATION ON PAIN MANAGEMENT TECHNIQUES.] Future Scheduled Test GENITOURIN KAYLA MANAGEMENT; RN TO ASSESS AND TEACH, CROZER OPERATOR/BUDGET RECORD CLERK TO OBSERVE AND TEACH RELATED TO ALTERED GENITOURINARY STATUS TO MINIMIZE COMPLICATIONS AND REDUCE HOSPITALIZATION. [code = GENITOURINARY MANAGEMENT; RN TO ASSESS AND TEACH, CROZER OPERATOR/BUDGET RECORD CLERK TO OBSERVE AND TEACH RELATED TO ALTERED GENITOURINARY STATUS TO MINIMIZE COMPLICATIONS AND REDUCE HOSPITALIZATION.] Future Scheduled Test URINARY TR ACT INFECTION MANAGEMENT; RN/BUDGET RECORD CLERK/CROZER OPERATOR TO PROVIDE SKILLED TEACHING AND SELF- CARE MANAGEMENT RELATED TO UTI TO MINIMIZE COMPLICATIONS AND REDUCE THE RISK OF HOSPITALIZATION. [code = URINARY TRACT INFECTION MANAGEMENT; RN/BUDGET RECORD CLERK/CROZER OPERATOR TO PROVIDE SKILLED TEACHING AND SELF- CARE MANAGEMENT RELATED TO UTI TO MINIMIZE COMPLICATIONS AND REDUCE THE RISK OF HOSPITALIZATION.] Future Scheduled Test UROSTOMY M ANAGEMENT; RN/BUDGET RECORD CLERK/CROZER OPERATOR TO INSTRUCT PATIENT/CAREGIVER ON UROSTOMY MANAGEMENT INCLUDING APPLIANCE TYPE, USAGE, AND STOMA CARE EACH VISIT NEEDED. [code = UROSTOMY MANAGEMENT; RN/BUDGET RECORD CLERK/CROZER OPERATOR TO INSTRUCT PATIENT/CAREGIVER ON UROSTOMY MANAGEMENT INCLUDING APPLIANCE TYPE, USAGE, AND STOMA CARE EACH VISIT NEEDED.] Future Scheduled Test GASTROINTE STINAL MANAGEMENT; RN TO ASSESS AND TEACH, BUDGET RECORD CLERK/CROZER OPERATOR TO OBSERVE AND TEACH RELATED TO ALTERED GASTROINTESTINAL STATUS TO MINIMIZE COMPLICATIONS AND REDUCE HOSPITALIZATION. [code = GASTROINTESTINAL MANAGEMENT; RN TO ASSESS AND TEACH, BUDGET RECORD CLERK/CROZER OPERATOR TO OBSERVE AND TEACH RELATED TO ALTERED GASTROINTESTINAL STATUS TO MINIMIZE COMPLICATIONS AND REDUCE HOSPITALIZATION.] Future Scheduled Test COLOSTOMY/ ILEOSTOMY TEACHING/MANAGEMENT; RN/BUDGET RECORD CLERK/CROZER OPERATOR TO INSTRUCT PATIENT/CAREGIVER ON COLOSTOMY MANAGEMENT INCLUDING APPLIANCE TYPE, USAGE, AND STOMAL CARE. RN/BUDGET RECORD CLERK/CROZER OPERATOR MAY PERFORM OSTOMY APPLIANCE CHANGE AND STOMA CARE EACH VISIT NEEDED. [code = COLOSTOMY/ILEOSTOMY TEACHING/MANAGEMENT; RN/BUDGET RECORD CLERK/CROZER OPERATOR TO INSTRUCT PATIENT/CAREGIVER ON COLOSTOMY MANAGEMENT INCLUDING APPLIANCE TYPE, USAGE, AND STOMAL CARE. RN/BUDGET RECORD CLERK/CROZER OPERATOR MAY PERFORM OSTOMY APPLIANCE CHANGE AND STOMA CARE EACH VISIT NEEDED.] Future Scheduled Test FALL REDUC TION MANAGEMENT; RN TO ASSESS AND OBSERVE, CROZER OPERATOR/BUDGET RECORD CLERK TO OBSERVE FALL RISK FACTORS AND EDUCATE PATIENT/CAREGIVER ON STRATEGIES TO MINIMIZE THE RISK OF FALLING. [code = FALL REDUCTION MANAGEMENT; RN TO ASSESS AND OBSERVE, CROZER OPERATOR/BUDGET RECORD CLERK TO OBSERVE FALL RISK FACTORS AND EDUCATE PATIENT/CAREGIVER ON STRATEGIES TO MINIMIZE THE RISK OF FALLING.] Future Scheduled Test PHYSICAL T HERAPIST TO EVALUATE FOR STRENGTHENING AND EDUCATION [code = PHYSICAL THERAPIST TO EVALUATE FOR STRENGTHENING AND EDUCATION] Future Scheduled Test SPEECH THE RAPIST TO EVALUATE FOR EVALUATION AND TREAT [code = SPEECH THERAPIST TO EVALUATE FOR EVALUATION AND TREAT] Goal 2025-01-05 Patient Goal - STAY OUT OF HOSPITAL AND GET THROAT FIXED TO LIVE Goal Patient Goal - STAY OUT OF HOSPITAL AND GET THROAT FIXED TO LIVE Goal Provider Goal - A PLAN OF CARE WILL BE ESTABLISHED THAT MEETS THE PATIENTS NEEDS. PATIENT WILL DEMONSTRATE OXYGEN SATURATION WITHIN NORMAL LIMITS OR PATIENTS OPTIMAL LEVEL ESTABLISHED BY THE PHYSICIAN THROUGHOUT CARE. CHANGES TO CO-MORBID CONDITIONS AND ANY NEW CONDITIONS WILL BE IDENTIFIED AND REPORTED TO THE PHYSICIAN. Goal Provider Goal - PATIENT/CAREGIVER WILL VERBALIZE UNDERSTANDING OF SIGNS AND SYMPTOMS THAT PUT THE PATIENT AT RISK FOR HOSPITALIZATION /EMERGENCY ROOM VISITS, WHEN TO NOTIFY NURSE/PHYSICIAN OF COMPLICATIONS/DECLINE AND WHEN TO CALL 911. Goal Provider Goal - PATIENT/CAREGIVER TO VERBALIZE, AND CONSISTENTLY DEMONSTRATE EFFECTIVE, SAFE MANAGEMENT OF MEDICATION INCLUDING KNOWLEDGE OF EFFECTIVENESS, POTENTIAL SIDE EFFECTS AND DRUG REACTIONS AND WHEN TO CONTACT THE APPROPRIATE CARE PROVIDER. PATIENT/CAREGIVER WILL BE ABLE TO VERBALIZE UNDERSTANDING OF MEDICATION REGIMEN AND ACCURATELY TAKE MEDICATIONS PRESCRIBED WITHOUT ADVERSE EFFECTS BY EOE Goal Provider Goal - PATIENT / CAREGIVER WILL VERBALIZE / DEMONSTRATE UNDERSTANDING OF PAIN CONTROL MEASURES BY EOE Goal Provider Goal - PATIENT / CAREGIVER WILL VERBALIZE/DEMONSTRATE UNDERSTANDING OF MEASURES TO MANAGE ALTERED GENITOURINARY STATUS BY END OF EPISODE. Goal Provider Goal - PATIENT/CAREGIVER WILL VERBALIZE/DEMONSTRATE UNDERSTANDING OF CARE AND MANAGEMENT OF URINARY TRACT INFECTION BY EOE. Goal Provider Goal - PATIENT/CAREGIVER WILL BE ABLE TO VERBALIZE/DEMONSTRATE APPROPRIATE UROSTOMY MANAGEMENT BY EOE. Goal Provider Goal - PATIENT / CAREGIVER WILL VERBALIZE/DEMONSTRATE UNDERSTANDING OF MEASURES TO MANAGE ALTERED GASTROINTESTINAL STATUS BY END OF EPISODE. Goal Provider Goal - PATIENT / CAREGIVER WILL BE ABLE TO VERBALIZE/DEMONSTRATE APPROPRIATE COLOSTOMY CARE MANAGEMENT BY EOE. Goal Provider Goal - PATIENT/CAREGIVER WILL VERBALIZE/DEMONSTRATE UNDERSTANDING OF FALL RISK FACTORS AND IMPLEMENT STRATEGIES TO MINIMIZE FALL RISK. PATIENT/CAREGIVER WILL VERBALIZE/DEMONSTRATE AN ABILITY TO ADHERE TO FALL REDUCTION SELF-MANAGEMENT AND LIFE-STYLE CHANGES BY [facility] Encounters Start Date/Time End Date/Time Encounter Type Admission Type Attending [facility] Care Department Encounter ID Discharge Date Discharge Status Discharge Condition Discharge Reason Percent Goals Met 2024-12-22 00:00:00 2025-02-19 00:00:00 [facility] [facility] [id number] 38.1 0
--- OUTSIDE RECORDS SUMMARY | 2025-01-16 14:38 | XMS_ITS | Clinical Summary ---
Author Organization [facility] Address [address] [place] [address] Care Team Providers Care Solution Professional Name Role Phone Bob Camp MD Primary Care Provider [phone] Surgical History Surgery Date Site/Laterality Comments ABDOMINAL SURGERY PROCEDURE: HISTORICAL ABDOMINAL SURGERY; COMMENT: multiple procedures, has colostomy, short gut, chronic tyson OTHER SURGICAL HISTORY PROCEDURE: HISTORICAL COLOSTOMY HYSTERECTOMY PROCEDURE: HISTORICAL TOTAL HYSTERECTOMY WITH BSO BLADDER SUSPENSION PROCEDURE: HISTORICAL BLADDER SUSPENSION OTHER SURGICAL HISTORY PROCEDURE: REPAIR MAXILLOFACIAL DEFECTS Medical History Medical History Date Comments Diabetes mellitus ([facility]/HCC V 24, [facility] V28) 06/05/2012 DX:Diabetes mellitus (HCC) HTN (hypertension) 06/05/2012 DX:HTN (hyper tension) Encounter for long-term (cur rent) use of other medications 06/05/2012 DX:Encounter for long-term ( current) use of other medications Diabetes mellitus (CMS/HCC V 24, [facility]/HCC V28) 06/05/2012 DX:Diabetes mellitus (HCC) HTN (hypertension) 06/05/2012 DX:HTN (hyper tension) Pulmonary embolism (CMS/HCC V24, [facility]/HCC V28) 06/05/2012 DX:Pulmonary embolism (HCC) PTSD (post-traumatic stress disorder) 06/05/2012 DX:PTSD (post-traumatic stress disorder) A-fib (CMS/HCC V24, [facility] V28) 06/05/2012 DX:A-fib ([facility]) Chronic back pain 06/05/2012 DX:Chronic thao k pain Conversion disorder 06/05/2012 DX:Conversio n disorder Gastroparesis due to DM (CMS /HCC V24, [facility] V28) 06/05/2012 DX:Gastroparesis due to DM ( [facility]) GERD (gastroesophageal reflux disease) 06/05/2012 DX:GERD (gastroesophageal reflux disease) Depressed 06/05/2012 DX:Depressed Myofascial pain syndrome 06/05/2012 DX:Myof ascial pain syndrome SGS (short gut syndrome) 06/05/2012 DX:SGS (short gut syndrome) SVT (supraventricular tachyc ardia) ([facility] V24) 06/05/2012 DX:SVT (supraventricular tachycardia) ([facility]) Weight loss 06/05/2012 DX:Weight loss Anxiety 06/05/2012 DX:Anxiety Irritable bowel 06/05/2012 DX:Irritable bow el Anemia 06/19/2012 DX:Anemia Migraine 07/25/2012 DX:Migraine History of DVT (deep vein thrombosis) DX:History of DVT (deep vein thrombosis) History of pulmonary embolism DX :History of pulmonary embolism Blind left eye DX:Blind left ey e Seizures (CMS/[facility] V24, CMS/[facility] V28) DX:Seizures ([facility]) Family History Medical History Relation Name Comments [...] Annual BMP Blood Test 09/09/2022 COVID-19 Vaccine ( - 2023-2 5 season) 2024 Influenza Vaccine (Season Ended) [...] age to complete this topic Meningococcal B Vaccine Aged Out No l onger eligible based on patient's age to complete this topic RSV Immunization Patients Un octavia 20 months Aged Out No longer eligible b ased on patient's age to complete this topic Varicella Vaccines Aged Out No longer eligible based on patient's age to complete this topic Advance Directives Documents on File Type Date Recorded Patient Senior Counsel Expl anation Health Care Decision (hx) 12/14/2019 [...] (hx) 09/21/2014 AD YOUSSEF DIRECTIVE Care Teams Solution Professional Relationship Specialty Start Date End Date Bob Camp MD [facility] [address] [place] [address] [address] [place] [address] PCP - General Internal Medicine 03/03/22
== END 2025-01-16 14:52 | disposition home or self-care (01) ==
LOC: HO.HMCH 13:53
PROVIDERS: PCP Internal Medicine
DX: R10.2 Pelvic and perineal pain (principal); R13.10 Dysphagia, unspecified; R29.6 Repeated falls

== ENCOUNTER → 2025-01-16 13:52 | Outpatient (BNVA) | payer MEDICARE, SELFPAY | PROVIDERS: PCP Internal Medicine | DX: R10.2 Pelvic and perineal pain (principal); R13.10 Dysphagia, unspecified; R29.6 Repeated falls; Z93.3 Colostomy status | CPT/HCPCS: 96127; 99212 ==

== ENCOUNTER 2025-02-05 14:22 | Outpatient (AMB) | payer MEDICARE, SELFPAY ==
[2025-02-05 14:26] VITALS: BP 116/80; PULSE 107; O2SAT 95; BMI 23.9
--- NOTE | 2025-02-05 14:26 | MHC.PC.OV ---
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 Required: No Accompanied by: Self / Same As Patient Allergies erythromycin base [ERYTHROMYCIN BASE] Allergy (Severe, Verified 02/05/25 14:41) Anaphylaxis levofloxacin [From Levaquin] Allergy (Severe, Verified 02/05/25 14:41) Anaphylaxis Penicillins [PCN] Allergy (Severe, Verified 02/05/25 14:41) Anaphylaxis seafood Allergy (Severe, Verified 02/05/25 14:41) Anaphylaxis Sulfa (Sulfonamide Antibiotics) [SULFA (SULFONAMIDE ANTIBIOTICS)] Allergy (Severe, Verified 02/05/25 14:41) Anaphylaxis, vomiting Tetracyclines Allergy (Severe, Verified 02/05/25 14:41) Anaphylaxis gabapentin Allergy (Intermediate, Verified 02/05/25 14:41) Hives pregabalin [From Lyrica] Allergy (Intermediate, Verified 02/05/25 14:41) Hives divalproex sodium [Depakote] Allergy (Unknown, Verified 02/05/25 14:41) altered mental status gluten [GLUTEN] Allergy (Unknown, Verified 02/05/25 14:41) BLOATING,RASH rice Allergy (Verified 02/05/25 14:41) Unknown Medication List - Last Reconciled 02/05/25 by Mariela Parson PA-C Advair HFA 115-21 mcg/actuation (fluticasone propion-salmeterol) 2 puffs inhalation Q12H NS albuterol sulfate 90 mcg/actuation 2 puffs inhalation Q6H PRN amitriptyline 25 mg PO BEDTIME 30 days apixaban (Eliquis) 5 mg PO BID 30 days [Boost Plus Supplement As directed Drink one supplement two times a day] cane As directed cholestyramine (with sugar) 4 gram 4 grams PO BID 30 days colostomy bags As directed [colostomy supplies As directed] cyanocobalamin (vitamin B-12) 3,000 mcg PO DAILY 90 days duloxetine 60 mg PO DAILY 90 days ferrous sulfate 325 mg PO DAILY food supplemt, lactose-reduced (Boost High Protein) 1 ea PO QID levetiracetam mg PO levetiracetam 750 mg PO BID 30 days levothyroxine 50 mcg PO DAILY loperamide (Imodium A-D) 2 mg PO Q6H PRN loratadine 10 mg PO DAILY magnesium oxide 1 tab PO BID midodrine 5 mg PO QID jlkmsanr-owy-NP-lycopen-lutein 0.4 mg-300 mcg- 250 mcg (CertaVite Senior) 1 tab PO DAILY omeprazole 40 mg PO DAILY oxycodone mg PO pantoprazole 40 mg PO DAILY potassium chloride ER 10 mEq PO BID simvastatin 40 mg PO BEDTIME Symbicort 80-4.5 mcg/actuation (budesonide-formoterol) 2 puffs inhalation BID NS thiamine HCl (vitamin B1) (Vitamin B-1) 100 mg PO DAILY tramadol 50 mg PO BID PRN trazodone 50 mg PO BEDTIME Tobacco use date assessed: 02/05/25 Fall risk assessment: 2 + Falls in past year Last assessed Fall Risk: 02/05/25 Dental Screening Dental Screen Date: 02/05/25 Did you have a dental visit in the last 12 months?: No Did you have a dental problem in the last 6 months where you did not have access to dental care?: No Was dental information given to patient?: No HPI [facility] 01/22 HPI Details The patient is a 69-year-old female presenting for discharge follow-up from [facility] for a bowel obstruction and orthostatic hypotension. She has a history of colorectal cancer with surgical intervention, leading to the placement of a colostomy that has recently shown reduced output and contributed to her abdominal pain. Therefore she went to [facility] for further evaluation management of her abdominal pain and decreased colostomy output. At that time they obtain a CT scan and revealed a bowel obstruction. An NG tube was previously utilized for decompressing a bowel obstruction. She was then discharged home with follow-up with her colorectal surgeon. Additionally, the patient displays symptoms of orthostatic hypotension, despite treatment with Midodrine and sufficient fluid intake. She endures chronic lightheadedness and syncopal episodes, heightening her fall risk. A history of atrial fibrillation managed with Eliquis also contributes to her complex clinical presentation, along with GERD and gastroparesis presenting a potential interference in medication absorption. She faces a compounded challenge in managing her orthostatic hypotension amid a stressful home environment, along with her sister?s domestic issues and her daughter's significant health concerns, impacting her overall health and ability to focus on her medical regimen. Social History - Lives with her sister and [id number]. - Does not drive due to seizures. - Reports significant family stress, including care for an obese daughter and relationship issues in her sister's household. - Describes difficulties in maintaining adequate nutrition. [facility] Medical History (Updated 02/05/25 @ 17:04 by Mariela Parson PA-C) Orthostatic hypotension History of small bowel obstruction Hospital discharge follow-up History of colon cancer History of gastric cancer History of pulmonary embolus (PE) Acute suprapubic pain Neurogenic bladder, NOS COVID-19 Primary cancer of foot Pulmonary embolism Degenerative cervical disc Lumbar disc disease Celiac disease Pure hypercholesterolemia Epilepsy Hypothyroidism COPD (chronic obstructive pulmonary disease) Pseudoseizure Conversion disorder Colon cancer Paroxysmal A-fib Allergy to multiple drugs Deep vein thrombosis Surgical History History of endoscopy History of esophagogastroduodenoscopy (EGD) History of arthroplasty History of hysterectomy (~1979) Hx of cholecystectomy S/P IVC filter History of partial surgical removal of colon History of partial gastrectomy History of colectomy History of colostomy reversal History of bladder surgery History of sinus surgery History of facial surgery History of colonoscopy (~06/12/24) Family History Mother CAD (coronary artery disease) Other Mental health disorder Social History Household Members: None Household Members Other:: 1 Housing: Apartment Do you presently have visiting nurse or other home services: Yes Alcohol intake: former Patient Tobacco Use Status: Never used Tobacco e-Cigarette/Vaping Use: Never Used Second Hand Smoke Exposure: Yes Advance Directives Date on File: 08/08/23 service: No Current occupational status: disabled Cognitive needs: Yes (cane) Hearing needs: No Vision needs: Yes (Glasses) Questionnaire PHQ-9 Over the last 2 weeks, how often have you been bothered by any of the following problems? 1. Little interest or pleasure in doing things: not at all 2. Feeling down, depressed, or hopeless: not at all 3. Trouble falling or staying asleep, or sleeping too much: several days 4. Feeling tired or having little energy: several days 5. Poor appetite or overeating: several days 6. Feeling bad about yourself - or that you are a failure or have let yourself or your family down: not at all 7. Trouble concentrating on things, such as reading the newspaper or watching television: not at all 8. Moving or speaking so slowly that other people could have noticed. Or the opposite - being so fidgety or restless that you have been moving around a lot more than usual: not at all 9. Thoughts that you would be better off or of hurting yourself in some way: not at all Total score: 3 Depression Screening Interpretation: Negative Depression Screening Done: Yes 69437 - PHQ-9 Billing: Yes Source: Developed by Drs. Ranjit Valdovinos, Anila Baldwin, Saud Allison and colleagues, with an educational lionel from [employer]. Thrive Questionnaire Date Thrive assessed: 02/05/25 I am a: Patient What is your living situation today?: I have a steady place to live Within the past 12 months, did the food you bought not last and you didn't have the money to get more?: Never true Within the past 12 months, did you worry whether your food would run out before you got money to buy more?: Never true Do you have trouble paying for medicines?: No Do you have trouble getting transportation to medical appointments?: Yes Do you have trouble paying your heating and electricity bill?: No Do you have trouble taking care of your child, family member or friend?: No Do you have trouble with day-to-day activities such as bathing, preparing meals, shopping, managing finances, etc.?: No Are you currently unemployed and looking for a job?: No Are you interested in more education?: No Please select the resources that you would like help with: None Currently or been in a relationship where the following occur: No concerns reported THRIVE Score: 1 AUDIT C Alcohol Use Questionnaire (AUDIT-C) 1. How often do you have a drink containing alcohol?: Never 3. How often do you have six or more drinks on one occasion?: Never Total Score: 0 Score Reviewed/Action Taken: No EARNESTINE-7 AMB Questionnaire EARNESTINE-7 Date EARNESTINE - 7 assessed: 02/05/25 Feeling nervous, anxious, or on edge: 0 = Not at all Not being able to stop or control worryin = Not at all Worrying too much about different things: 0 = Not at all Trouble relaxin = Not at all Being so restless that it is hard to sit still: 1 = Several days Becoming easily annoyed or irritable: 1 = Several days Feeling afraid as if something awful might happen: 0 = Not at all Total EARNESTINE-7 score (0-4 normal; 5-9 mild; 10-14 moderate; 15-21 severe): 2 Source: Developed by Drs. Ranjit Valdovinos, Anila Baldwin, Saud Allison and colleagues, with an educational lionel from [employer]. EARNESTINE-7 Assessment Billing EARNESTINE-7 Assessment Tool: EARNESTINE-7 Assessment 00756 Review of Systems Const Details: - Constitutional: Denies fever, chills. - Cardiovascular: Reports orthostatic hypotension and syncope episodes. - Gastrointestinal: Reports improving abdominal pain, nausea, vomiting; denies blood in emesis. - Musculoskeletal: Reported left wrist pain post-fall when seen at [facility] no other injuries since then which was December 2024. - Neurological: Reports syncopal episodes, denies dizziness post-fall. - Respiratory: Denies chest pain, shortness of breath. Physical exam (Primary Care) Vital Signs: Last Vital Signs Pulse 107 H 02/05/25 14:26 BP 116/80 02/05/25 14:26 Pulse Ox 95 02/05/25 14:26 Oxygen Delivery Method Room Air 02/05/25 14:26 Care Plan Goal for BP management: <130/90 at Goal and >100/60 BMI result Body Mass Index 23.9 BMI Assessment/Plan discussion: Low BMI Low, Plan discussed: lifestyle, increase calorie intake and dietary Tobacco/Smoking Status: Tobacco use Status Tobacco use date assessed 02/05/25 02/05/25 14:32 Patient Tobacco Use Status Never used Tobacco 02/05/25 14:32 e-Cigarette/Vaping Use Never Used 02/05/25 14:32 PHQ-9: PHQ-9 Score PHQ-9: Total score 3 02/05/25 14:41 Depression Screening Interpretation: Negative Thrive Assessment: Date of Thrive Assessment Date Thrive assessed 02/05/25 02/05/25 14:32 Currently or been in a relationship where the following occur: No concerns reported Const Other: Appearance: Alert. Oriented X3. No acute distress. Head: Normal external exam. Normocephalic. Atraumatic. Eyes: Pupils are equal, round, and reactive to light. Extraocular movements intact. Conjunctiva and sclera normal. Eyelids normal. Throat: Pharynx normal. Uvula midline. Moist mucous membranes. Difficulty swallowing noted. Neck: Normal inspection. Neck supple. Full range of motion. Cardiovascular: Normal heart rate and rhythm. Heart sound normal. No murmurs noted. Pulses normal throughout. Blood pressure noted at 90/60. Respiratory: No respiratory distress. Painless inspiration. Breath sounds normal. No wheezes/rales/rhonchi noted. Chest nontender. No accessory muscle usage noted or decreased air movement noted. Abdomen: Soft and nontender. Bowel sounds heard. Colostomy in place without signs of infection. No distention noted. No organomegaly noted. No visible injury noted. History of bowel obstruction. Back: Full range of motion noted. Skin: Skin warm and dry. Normal skin color. Normal skin turgor. No rashes/lesions/lacerations noted. Bruising noted from recent fall. Extremities: No lower extremity edema. Extremities exhibit normal range of motion. Extremities nontender. Neuro: Oriented X 3. No motor deficit. No sensory deficit. Reflexes normal. Results Reviewed Results Reviewed: - EKG: Normal with a noted left-axis deviation. - Blood Work: Mild anemia, normal WBC count, kidney and liver function tests normal, thyroid function within normal limits, negative COVID, flu, and RSV. - Abdominal and Pelvic CT: Bowel obstruction identified at [facility] which has now resolved. Coding Level of Care Code Est Pt Level 4 (19539) Complex EM visit Add On G2211 Diagnoses Hospital discharge follow-up Z09 History of small bowel obstruction Z87.19 Orthostatic hypotension I95.1 Additional Codes EARNESTINE-7 Assessment Billing - EARNESTINE-7 Assessment Tool: EARNESTINE-7 Assessment 36486 ([id number]) PHQ-9 - 32420 - PHQ-9 Billing: Yes ([id number]) Time Spent (min) 45 Assessment & Plan Assessment & Plan (1) Hospital discharge follow-up: Code(s): Z09 - Encounter for follow-up examination after completed treatment for conditions other than malignant neoplasm Category: Medical Plan: The patient is being monitored following NG tube decompression for bowel obstruction. Follow-up with a surgeon in [place] is arranged due to suspected surgical complications. Condition is improved and patient having normal stools out of her colostomy will continue to monitor. (2) History of small bowel obstruction: Code(s): Z87.19 - Personal history of other diseases of the digestive system Category: Medical (3) Orthostatic hypotension: Code(s): I95.1 - Orthostatic hypotension Category: Medical Plan: Management involves adding Fludrocortisone to support blood pressure stabilization, alongside current Midodrine therapy. Increase fluid intake, and monitor blood pressure. Condition is stable continue to monitor. Plan Plan Patient was informed and verbally consented to the use of an ambient scribe for clinic note documentation during this visit. 1. Bowel Obstruction The patient is being monitored following NG tube decompression for bowel obstruction. Follow-up with a surgeon in [place] is arranged due to suspected surgical complications. 2. Orthostatic Hypotension Management involves adding Fludrocortisone to support blood pressure stabilization, alongside current Midodrine therapy. Increase fluid intake, and monitor blood pressure. During the visit, the patient?s treatment for orthostatic hypotension was discussed, with the addition of Fludrocortisone recommended to improve blood pressure control. The importance of regular medication adherence and increased fluid consumption was underscored. Follow-up with surgery for bowel obstruction due to suspicion of operative complications is planned. The patient understood the need for close monitoring of blood pressure and signs of worsening intestinal symptoms. Follow-ups were recommended as per surgeon's guidance and re-evaluation of medication efficacy. Medications: New food supplemt, lactose-reduced (Boost High Protein) 1 ea PO QID 5,688 mL 1RF fludrocortisone 0.1 mg PO DAILY 90 tabs 1RF Patient Instructions: - Continue taking all medications as prescribed, including Midodrine and the new prescription Fludrocortisone. - Increase fluid intake as much as possible to manage orthostatic hypotension. - Monitor for any recurrent abdominal pain or changes in colostomy output; seek immediate care if symptoms worsen. - Follow up with your scheduled surgical appointment in [place]. - Ensure a follow-up appointment in one month to evaluate progress. - Contact emergency services if you experience any falls involving head injury or significant symptoms suggestive of bowel obstruction or cardiac events.
--- OUTSIDE RECORDS SUMMARY | 2025-02-05 14:58 | XMS_ITS | Clinical Summary ---
Author Organization Unknown Care Team Providers Care Strawhat Inspector And Packer Name Role Phone FEDERICO PAUL, MIKO Unavailable Unavailab Jay SANTOS, BARR[place] Unavailable Unavailable LINO KIMN, LUI Unavailable Unavailable JANUARY PT, DONN Unavailable Unavailable OBINNA NAIL ARTIST, JOSÉ ANTONIO Unavailable Unavailable ALISA ALLEN, WAQAS Unavailable Unavailable Payers Payer Name Policy Type Policy Number Effective Date Expira tion Date [facility] [id number] Problems Condition Name Condition Details Condition Category Status Onset Date Resolution Date Last Treatment Date Treating Clinician Comments ENCOUNTER FOR ATTENTION TO COLOSTOMY Active 5 00:00: 00 ENCOUNTER FOR ATTN TO OTH ARTIF OPENINGS OF URINARY TRACT Active 5- 00:00: 00 OTHER CHRONIC PAIN Active 4- 00:00: 00 UNSPECIFIED ABDOMINAL PAIN Active 4- 00:00: 00 URINARY TRACT INFECTION, SITE NOT SPECIFIED Active 0 4- 00:00: 00 ESOPHAGEAL OBSTRUCTION Active - 00:00: 00 DYSPHAGIA, UNSPECIFIED Active 3- 00:00: 00 POST-TRAUMAT IC STRESS DISORDER, UNSPECIFIED Active 1- 00:00: 00 HYPOTHYROIDI SM, UNSPECIFIED Active 3- 00:00: 00 FOOT DROP, RIGHT FOOT Active 1- 00:00: 00 MAJOR DEPRESSIVE DISORDER, SINGLE EPISODE, UNSPECIFIED Active 3- 00:00: 00 OTHER HYPOTENSION Active 1- 00:00: 00 GASTRO-ESOPH AGEAL REFLUX DISEASE WITHOUT ESOPHAGITIS Active 0 3- 00:00: 00 LUMBAGO WITH SCIATICA, RIGHT SIDE Active 1- 00:00: 00 CONVERSION DISORDER WITH SEIZURES OR CONVULSIONS Active 12-22 00:00: 00 OTHER SPECIFIED DISEASES OF BILIARY TRACT Active 09-24 00:00: 00 PERSONAL HISTORY OF MALIGNANT NEOPLASM OF LARGE INTESTINE Active 09-24 00:00: 00 PERSONAL HISTORY OF MALIGNANT NEOPLASM OF BLADDER Active 09-24 00:00: 00 PERSONAL HISTORY OF OTHER MALIGNANT NEOPLASM OF STOMACH Active 09-24 00:00: 00 PERSONAL HISTORY OF PULMONARY EMBOLISM Active 12-22 00:00: 00 [facility] (CURRENT) USE OF ANTICOAGULAN TS Active 12-22 [...] 2023-09 00:00: 00 09-11 00:00 :00 No [id number] Per instruc tions Per instructio ns (route: oral) Med Classific ation: Analgesic , Anti-infl ammatory or Antipyret ic ondansetron HCl 4 mg tablet 2023-09 00:00: 00 09-11 00:00 :00 No [id number] Per instruc tions Per instructio ns (route: oral) Med Classific ation: Gastroint estinal Therapy Agents albuterol sulfate HFA 90 mcg/actuati on aerosol inhaler 2023-09 00:00: 00 09-11 00:00 :00 No [id number] Per instruc tions Per instructio ns (route: inhalation ) Med Classific ation: Respirato ry Therapy Agents levetiracet am 100 mg/mL oral solution 2023-09 00:00: 00 09-11 00:00 :00 No [id number] Per instruc tions Per instructio ns (route: oral) Med Classific ation: Central Nervous System Agents albuterol sulfate HFA 90 mcg/actuati on aerosol inhaler 2023-09 00:00: 00 12-19 23:59 :00 No [id number] WHEEZING 1 puff EVERY 6 HOURS 1 puff EVERY 6 HOURS (route: inhalation ) Med Classific ation: Respirato ry Therapy Agents budesonide- formoterol HFA 80 mcg-4.5 mcg/actuati on aerosol inhaler 2023-09 00:00: 00 12-19 23:59 :00 No [id number] COPD 2 puff 2 TIMES DAILY 2 puff 2 TIMES DAILY (route: inhalation ) Med Classific ation: Respirato ry Therapy Agents dicyclomine 10 mg tablet 2023-09 00:00: 00 12-19 23:59 :00 No [id number] SPASM 10 mg 3 TIMES DAILY 10 mg 3 TIMES DAILY (route: oral) Med Classific ation: Gastroint estinal Therapy Agents duloxetine 60 mg capsule,del ayed release 2023-09 00:00: 00 12-19 23:59 :00 No [id number] ANTIDEPRESS ANT 1 capsule DAILY 1 capsule DAILY (route: oral) Med Classific ation: Central Nervous System Agents Eliquis 5 mg tablet 2023-09 00:00: 00 12-19 23:59 :00 No [id number] PREVENTS BLOOD CLOTS 1 tablet 2 TIMES DAILY 1 tablet 2 TIMES DAILY (route: oral) Med Classific ation: Hematolog ical Agents ferrous sulfate 325 mg (65 mg iron) tablet 2023-09 00:00: 00 12-19 23:59 :00 No [id number] SUPPLEMENT 1 tablet DAILY 1 tablet DAILY (route: oral) Med Classific ation: Electroly te Balance-N utritiona l Products hydromorpho ne 2 mg tablet 2023-09 00:00: 00 12-19 23:59 :00 No [id number] PAIN MANAGEMENT 1 tablet EVERY 12 HOURS 1 tablet EVERY 12 HOURS (route: oral) Med Classific ation: Analgesic , Anti-infl ammatory or Antipyret ic Keppra 100 mg/mL oral solution 2023-09 00:00: 00 12-19 23:59 :00 No [id number] PREVENTS SEIZURES 7.5 mL 2 TIMES DAILY 7.5 mL 2 TIMES DAILY (route: oral) Med Classific ation: Central Nervous System Agents levothyroxi ne 50 mcg tablet 2023-09 00:00: 00 12-19 23:59 :00 No [id number] HYPOTHYROID 1 tablet DAILY 1 tablet DAILY (route: oral) Med Classific ation: Endocrine loperamide 2 mg tablet 2023-09 00:00: 00 12-19 23:59 :00 No [id number] LOOSE STOOLS 1 tablet 4 TIMES DAILY 1 tablet 4 TIMES DAILY (route: oral) Med Classific ation: Gastroint estinal Therapy Agents midodrine 5 mg tablet 2023-09 00:00: 00 12-19 23:59 :00 No [id number] RAISES BLOOD PRESSURE 2 tablet DAILY 2 tablet DAILY (route: oral) Med Classific ation: Cardiovas cular Therapy Agents multivitami n tablet 2023-09 00:00: 00 12-19 23:59 :00 No [id number] SUPPLEMENT 1 tablet DAILY 1 tablet DAILY (route: oral) Med Classific ation: Electroly te Balance-N utritiona l Products naloxone 4 mg/actuatio n nasal spray 2023-09 00:00: 00 12-19 23:59 :00 No [id number] TO REVERSE OPIOID OVERDOSE 1 spray NEEDED 1 spray NEEDED (route: nasal) Med Classific ation: Antidotes and other Reversal Agents ondansetron 4 mg disintegrat ing tablet 2023-09 00:00: 00 12-19 23:59 :00 No [id number] NAUSEA/VOMI TING 1 tablet EVERY 8 HOURS 1 tablet EVERY 8 HOURS (route: oral) Med Classific ation: Gastroint estinal Therapy Agents pantoprazol e 40 mg tablet,amara yed release 2023-09 00:00: 00 12-19 23:59 :00 No [id number] GERD 1 tablet DAILY 1 tablet DAILY (route: oral) Med Classific ation: Gastroint estinal Therapy Agents simvastatin 40 mg tablet 2023-09 00:00: 00 12-19 23:59 :00 No [id number] LOWERS CHOLESTEROL 1 tablet BEDTIME 1 tablet BEDTIME (route: oral) Med Classific ation: Cardiovas cular Therapy Agents thiamine HCl (vitamin B1) 100 mg tablet 2023-09 00:00: 00 12-19 23:59 :00 No [id number] SUPPLEMENT 1 tablet DAILY 1 tablet DAILY (route: oral) Med Classific ation: Electroly te Balance-N utritiona l Products trazodone 50 mg tablet 2023-09 00:00: 00 12-19 23:59 :00 No [id number] IMPROVES SLEEP 1 tablet BEDTIME 1 tablet BEDTIME (route: oral) Med Classific ation: Central Nervous System Agents pantoprazol e 40 mg tablet,amara yed release 12-12 00:00: 00 Yes [id number] GERD 1 tablet DAILY 1 tablet DAILY (route: oral) Med Classific ation: Gastroint estinal Therapy Agents cholestyram ine (with sugar) 4 gram powder for susp in a packet 12-08 00:00: 00 01-05 23:59 :00 No [id number] HIGH CHOLESTERL 4 g DAILY 4 g DAILY (route: oral) Med Classific ation: Cardiovas cular Therapy Agents duloxetine 60 mg capsule,del ayed release 12-08 00:00: 00 Yes [id number] DEPRESSION 1 capsule DAILY 1 capsule DAILY (route: oral) Med Classific ation: Central Nervous System Agents fluticasone propionate 115 mcg-salmete rol 21 mcg/actuati on HFA inhaler 12-08 00:00: 00 Yes [id number] WHEEZING/SO B 2 puff 2 TIMES DAILY 2 puff 2 TIMES DAILY (route: inhalation ) Med Classific ation: Respirato ry Therapy Agents levetiracet am 750 mg tablet 12-08 00:00: 00 12-22 00:00 :00 No [id number] Per instruc tions Per instructio ns (route: oral) Med Classific ation: Central Nervous System Agents levothyroxi ne 50 mcg tablet 12-08 00:00: 00 Yes [id number] HYPOTHYROID ISM 1 tablet EVERY AM 1 tablet EVERY AM (route: oral) Med Classific ation: Endocrine omeprazole 40 mg capsule,del ayed release 12-08 00:00: 00 Yes [id number] GERD 1 capsule DAILY 1 capsule DAILY (route: oral) Med Classific ation: Gastroint estinal Therapy Agents thiamine HCl (vitamin B1) 100 mg tablet 12-08 00:00: 00 Yes [id number] SUPPLEMENT 1 tablet DAILY 1 tablet DAILY (route: oral) Med Classific ation: Electroly te Balance-N utritiona l Products trazodone 50 mg tablet 12-05 00:00: 00 Yes [id number] INSOMNIA 1 tablet BEDTIME 1 tablet BEDTIME (route: oral) Med Classific ation: Central Nervous System Agents hydromorpho ne 4 mg tablet 11-27 00:00: 00 01-05 23:59 :00 No [id number] PAIN 0.5 tablet EVERY 8 HOURS 0.5 tablet EVERY 8 HOURS (route: oral) Med Classific ation: Analgesic , Anti-infl ammatory or Antipyret ic ondansetron HCl 4 mg tablet 11-27 00:00: 00 12-22 00:00 :00 No [id number] Per instruc tions EVERY 8 HOURS NEEDED Per instructio ns EVERY 8 HOURS NEEDED (route: oral) Med Classific ation: Gastroint estinal Therapy Agents amitriptyli ne 25 mg tablet 11-24 00:00: 00 Yes [id number] DEPRESSION 1 tablet BEDTIME 1 tablet BEDTIME (route: oral) Med Classific ation: Central Nervous System Agents albuterol sulfate HFA 90 mcg/actuati on aerosol inhaler 12-22 00:00: 00 Yes [id number] SOB/WHEEZIN G 2 puff EVERY 6 HOURS 2 puff EVERY 6 HOURS (route: inhalation ) Med Classific ation: Respirato ry Therapy Agents cyanocobala min (vit B-12) 1,000 mcg tablet 12-22 00:00: 00 Yes [id number] SUPPLEMENT 1 tablet DAILY 1 tablet DAILY (route: oral) Med Classific ation: Electroly te Balance-N utritiona l Products dicyclomine 20 mg tablet 12-22 00:00: 00 Yes [id number] SPASMS 1 tablet 4 TIMES DAILY 1 tablet 4 TIMES DAILY (route: oral) Med Classific ation: Gastroint estinal Therapy Agents Eliquis 2.5 mg tablet 12-22 00:00: 00 Yes [id number] BLOOD THINNER 2 tablet 2 TIMES DAILY 2 tablet 2 TIMES DAILY (route: oral) Med Classific ation: Hematolog ical Agents levetiracet am 100 mg/mL oral solution 12-22 00:00: 00 Yes [id number] SEIZURES 7.5 mL 2 TIMES DAILY 7.5 mL 2 TIMES DAILY (route: oral) Med Classific ation: Central Nervous System Agents loperamide 2 mg capsule 12-22 00:00: 00 Yes [id number] DIARRHEA 1 capsule 4 TIMES DAILY 1 capsule 4 TIMES DAILY (route: oral) Med Classific ation: Gastroint estinal Therapy Agents midodrine 5 mg tablet 12-22 00:00: 00 Yes [id number] LOW BLOOD PRESSURE 1 tablet 3 TIMES DAILY 1 tablet 3 TIMES DAILY (route: oral) Med Classific ation: Cardiovas cular Therapy Agents multivitami n tablet 12-22 00:00: 00 Yes [id number] SUPPLEMENT 1 tablet DAILY 1 tablet DAILY (route: oral) Med Classific ation: Electroly te Balance-N utritiona l Products naloxone 4 mg/actuatio n nasal spray 12-22 00:00: 00 Yes [id number] OPIOID OVERDOSE Per instruc tions DIRECTED Per instructio ns DIRECTED (route: nasal) Med Classific ation: Antidotes and other Reversal Agents simvastatin 40 mg tablet 12-22 00:00: 00 Yes [id number] HIGH CHOLESTEROL 1 tablet EVERY PM 1 tablet EVERY PM (route: oral) Med Classific ation: Cardiovas cular Therapy Agents Dilaudid 4 mg tablet 4-14 00:00: 00 Yes [id number] PAIN 1 tablet 4 TIMES DAILY 1 tablet 4 TIMES DAILY (route: oral) Med Classific ation: Analgesic , Anti-infl ammatory or Antipyret ic oxycodone 20 mg/mL oral concentrate 01-22 00:00: 00 Yes [id number] PAIN 20 mg EVERY 4 HOURS 20 mg EVERY 4 HOURS (route: oral) Med Classific ation: Analgesic , Anti-infl ammatory or Antipyret ic Vital Signs Vital Name Observation Time Observation Value Commen ts Temperature 2025-02-05 09:11:00.000 97.1 [degF] Temperature 2025-01-29 09:58:00.000 97.1 [degF] Temperature 2025-01-22 12:29:00.000 97.7 [degF] Temperature 2025-01-13 09:43:00.000 97.2 [degF] Temperature 2025-01-13 04:31:00.000 97.4 [degF] Temperature 2025-01-05 11:41:00.000 97.8 [degF] Temperature 2024-12-30 12:08:00.000 97.6 [degF] Temperature 2024-12-29 16:36:00.000 97.4 [degF] Temperature 2024-12-29 13:11:00.000 97.5 [degF] Temperature 2024-12-22 16:22:00.000 97.9 [degF] BMI (%) 2025-01-22 12:21:13.000 22 kg/m2 BMI (%) 2025-01-05 11:33:08.000 22 kg/m2 BMI (%) 2024-12-22 15:46:26.000 23 kg/m2 Height 2025-01-22 12:21:05.000 60 [in_us] Height 2025-01-05 11:32:58.000 60 [in_us] Height 2024-12-22 15:46:19.000 60 [in_us] Pulse 2025-02-05 09:11:00.000 99 /min Pulse 2025-01-29 09:58:00.000 96 /min Pulse 2025-01-22 12:29:00.000 62 /min Pulse 2025-01-13 09:43:00.000 98 /min Pulse 2025-01-13 04:31:00.000 95 /min Pulse 2025-01-05 11:41:00.000 91 /min Pulse 2024-12-30 12:08:00.000 90 /min Pulse 2024-12-29 16:36:00.000 98 /min Pulse 2024-12-29 13:11:00.000 88 /min Pulse 2024-12-22 16:22:00.000 80 /min O2 Saturation (%) 2025-02-05 09:11:00.000 96 % O2 Saturation (%) 2025-01-29 09:58:00.000 97 % O2 Saturation (%) 2025-01-13 09:43:00.000 98 % O2 Saturation (%) 2025-01-13 04:31:00.000 96 % O2 Saturation (%) 2025-01-05 11:41:00.000 98 % O2 Saturation (%) 2024-12-30 12:08:00.000 96 % O2 Saturation (%) 2024-12-29 16:36:00.000 98 % O2 Saturation (%) 2024-12-29 13:11:00.000 99 % O2 Saturation (%) 2024-12-22 16:22:00.000 96 % Respirations 2025-02-05 09:11:00.000 18 /min Respirations 2025-01-29 09:58:00.000 18 /min Respirations 2025-01-22 12:29:00.000 18 /min Respirations 2025-01-13 09:43:00.000 18 /min Respirations 2025-01-13 04:31:00.000 18 /min Respirations 2025-01-05 11:41:00.000 18 /min Respirations 2024-12-30 12:08:00.000 18 /min Respirations 2024-12-29 16:36:00.000 18 /min Respirations 2024-12-29 13:11:00.000 18 /min Respirations 2024-12-22 16:22:00.000 18 /min Weight (lbs) 2025-01-22 12:21:13.000 114 [lb_av] Weight (lbs) 2025-01-05 11:33:08.000 116 [lb_av] Weight (lbs) 2024-12-22 15:46:26.000 118 [lb_av] Systolic Blood Pressure 2025-02-05 09:11:00.000 100 mm [Hg] Systolic Blood Pressure 2025-01-29 09:58:00.000 110 mm [Hg] Systolic Blood Pressure 2025-01-22 12:29:00.000 90 mm[ Hg] Systolic Blood Pressure 2025-01-13 09:43:00.000 110 mm [Hg] Systolic Blood Pressure 2025-01-13 04:31:00.000 106 mm [Hg] Systolic Blood Pressure 2025-01-05 11:41:00.000 94 mm[ Hg] Systolic Blood Pressure 2024-12-30 12:08:00.000 100 mm [Hg] Systolic Blood Pressure 2024-12-29 16:36:00.000 120 mm [Hg] Systolic Blood Pressure 2024-12-29 13:11:00.000 102 mm [Hg] Systolic Blood Pressure 2024-12-22 16:22:00.000 102 mm [Hg] Diastolic Blood Pressure 2025-02-05 09:11:00.000 60 mm [Hg] Diastolic Blood Pressure 2025-01-29 09:58:00.000 60 mm [Hg] Diastolic Blood Pressure 2025-01-22 12:29:00.000 60 mm [Hg] Diastolic Blood Pressure 2025-01-13 09:43:00.000 [...] CONSULTING PHYSICIANS. RN TO OBSERVE AND ASSESS, TAX ECONOMIST/PATTERN RULER TO OBSERVE FOR RISK FOR FALLS AND INSTRUCT IN FALL PREVENTION, HOME SAFETY, MEDICATION MANAGEMENT, INFECTION PREVENTION, AND NUTRITION MANAGEMENT. RN/TAX ECONOMIST/PATTERN RULER NURSE MAY PERFORM O2 SATURATION LEVEL ON ADMISSION AND PRN FOR RN TO ASSESS/TAX ECONOMIST TO OBSERVE PATIENT, WITH NOTIFICATION TO THE PHYSICIAN IF SATURATION IS 90% IN THE ABSENCE OF MORE SPECIFIC PARAMETERS FROM THE PHYSICIAN. AGENCY MAY PERFORM A RESUMPTION OF CARE VISIT FOLLOWING ANY HOSPITAL ADMISSION. RN/TAX ECONOMIST/PATTERN RULER TO MONITOR CO-MORBID CONDITIONS LISTED ON THE PLAN OF CARE AND ANY NEW CONDITIONS THAT PRESENT THEMSELVES DURING THIS EPISODE TO IDENTIFY CHANGES AND INTERVENE TO MINIMIZE COMPLICATIONS. [code = RN TO OBSERVE, ASSESS, EVALUATE, AND DEVELOP AN INDIVIDUALIZED PLAN OF CARE. AGENCY MAY ACCEPT ORDERS FROM CONSULTING PHYSICIANS. RN TO OBSERVE AND ASSESS, TAX ECONOMIST/PATTERN RULER TO OBSERVE FOR RISK FOR FALLS AND INSTRUCT IN FALL PREVENTION, HOME SAFETY, MEDICATION MANAGEMENT, INFECTION PREVENTION, AND NUTRITION MANAGEMENT. RN/TAX ECONOMIST/PATTERN RULER NURSE MAY PERFORM O2 SATURATION LEVEL ON ADMISSION AND PRN FOR RN TO ASSESS/TAX ECONOMIST TO OBSERVE PATIENT, WITH NOTIFICATION TO THE PHYSICIAN IF SATURATION IS 90% IN THE ABSENCE OF MORE SPECIFIC PARAMETERS FROM THE PHYSICIAN. AGENCY MAY PERFORM A RESUMPTION OF CARE VISIT FOLLOWING ANY HOSPITAL ADMISSION. RN/TAX ECONOMIST/PATTERN RULER TO MONITOR CO-MORBID CONDITIONS LISTED ON THE PLAN OF CARE AND ANY NEW CONDITIONS THAT PRESENT THEMSELVES DURING THIS EPISODE TO IDENTIFY CHANGES AND INTERVENE TO MINIMIZE COMPLICATIONS.] Future Scheduled Test RISK FOR H OSPITALIZATION; RN TO ASSESS/TEACH, PATTERN RULER/TAX ECONOMIST TO OBSERVE/TEACH PATIENT/CAREGIVER ON RISK FOR HOSPITALIZATION/EMERGENCY ROOM VISITS, TEACH SIGNS AND SYMPTOMS THAT PUT PATIENT AT RISK, WHEN TO NOTIFY NURSE/PHYSICIAN OF COMPLICATIONS/DECLINE, AND WHEN TO CALL 911. [code = RISK FOR HOSPITALIZATION; RN TO ASSESS/TEACH, PATTERN RULER/TAX ECONOMIST TO OBSERVE/TEACH PATIENT/CAREGIVER ON RISK FOR HOSPITALIZATION/EMERGENCY ROOM VISITS, TEACH SIGNS AND SYMPTOMS THAT PUT PATIENT AT RISK, WHEN TO NOTIFY NURSE/PHYSICIAN OF COMPLICATIONS/DECLINE, AND WHEN TO CALL 911.] Future Scheduled Test MEDICATION MANAGEMENT; RN/TAX ECONOMIST/PATTERN RULER TO REVIEW MEDICATIONS FOR INTERACTIONS, EFFECTIVENESS OF DRUG THERAPY, AND SIGNS/SYMPTOMS OF ADVERSE REACTIONS. MAY INSTRUCT AND REINFORCE MEDICATION TEACHING RELATED TO THE USE OF MEDICATIONS, DOSAGE, FREQUENCY, PURPOSE, SIDE EFFECTS, AND TO REPORT COMPLICATIONS. [code = MEDICATION MANAGEMENT; RN/TAX ECONOMIST/PATTERN RULER TO REVIEW MEDICATIONS FOR INTERACTIONS, EFFECTIVENESS OF DRUG THERAPY, AND SIGNS/SYMPTOMS OF ADVERSE REACTIONS. MAY INSTRUCT AND REINFORCE MEDICATION TEACHING RELATED TO THE USE OF MEDICATIONS, DOSAGE, FREQUENCY, PURPOSE, SIDE EFFECTS, AND TO REPORT COMPLICATIONS.] Future Scheduled Test PAIN MANAG EMENT; RN TO ASSESS AND TEACH, PATTERN RULER/TAX ECONOMIST TO OBSERVE AND TEACH AND PROVIDE EDUCATION ON PAIN MANAGEMENT TECHNIQUES. [code = PAIN MANAGEMENT; RN TO ASSESS AND TEACH, PATTERN RULER/TAX ECONOMIST TO OBSERVE AND TEACH AND PROVIDE EDUCATION ON PAIN MANAGEMENT TECHNIQUES.] Future Scheduled Test GENITOURIN KAYLA MANAGEMENT; RN TO ASSESS AND TEACH, TAX ECONOMIST/PATTERN RULER TO OBSERVE AND TEACH RELATED TO ALTERED GENITOURINARY STATUS TO MINIMIZE COMPLICATIONS AND REDUCE HOSPITALIZATION. [code = GENITOURINARY MANAGEMENT; RN TO ASSESS AND TEACH, TAX ECONOMIST/PATTERN RULER TO OBSERVE AND TEACH RELATED TO ALTERED GENITOURINARY STATUS TO MINIMIZE COMPLICATIONS AND REDUCE HOSPITALIZATION.] Future Scheduled Test URINARY TR ACT INFECTION MANAGEMENT; RN/PATTERN RULER/TAX ECONOMIST TO PROVIDE SKILLED TEACHING AND SELF- CARE MANAGEMENT RELATED TO UTI TO MINIMIZE COMPLICATIONS AND REDUCE THE RISK OF HOSPITALIZATION. [code = URINARY TRACT INFECTION MANAGEMENT; RN/PATTERN RULER/TAX ECONOMIST TO PROVIDE SKILLED TEACHING AND SELF- CARE MANAGEMENT RELATED TO UTI TO MINIMIZE COMPLICATIONS AND REDUCE THE RISK OF HOSPITALIZATION.] Future Scheduled Test UROSTOMY M ANAGEMENT; RN/PATTERN RULER/TAX ECONOMIST TO INSTRUCT PATIENT/CAREGIVER ON UROSTOMY MANAGEMENT INCLUDING APPLIANCE TYPE, USAGE, AND STOMA CARE EACH VISIT NEEDED. [code = UROSTOMY MANAGEMENT; RN/PATTERN RULER/TAX ECONOMIST TO INSTRUCT PATIENT/CAREGIVER ON UROSTOMY MANAGEMENT INCLUDING APPLIANCE TYPE, USAGE, AND STOMA CARE EACH VISIT NEEDED.] Future Scheduled Test GASTROINTE STINAL MANAGEMENT; RN TO ASSESS AND TEACH, PATTERN RULER/TAX ECONOMIST TO OBSERVE AND TEACH RELATED TO ALTERED GASTROINTESTINAL STATUS TO MINIMIZE COMPLICATIONS AND REDUCE HOSPITALIZATION. [code = GASTROINTESTINAL MANAGEMENT; RN TO ASSESS AND TEACH, PATTERN RULER/TAX ECONOMIST TO OBSERVE AND TEACH RELATED TO ALTERED GASTROINTESTINAL STATUS TO MINIMIZE COMPLICATIONS AND REDUCE HOSPITALIZATION.] Future Scheduled Test COLOSTOMY/ ILEOSTOMY TEACHING/MANAGEMENT; RN/PATTERN RULER/TAX ECONOMIST TO INSTRUCT PATIENT/CAREGIVER ON COLOSTOMY MANAGEMENT INCLUDING APPLIANCE TYPE, USAGE, AND STOMAL CARE. RN/PATTERN RULER/TAX ECONOMIST MAY PERFORM OSTOMY APPLIANCE CHANGE AND STOMA CARE EACH VISIT NEEDED. [code = COLOSTOMY/ILEOSTOMY TEACHING/MANAGEMENT; RN/PATTERN RULER/TAX ECONOMIST TO INSTRUCT PATIENT/CAREGIVER ON COLOSTOMY MANAGEMENT INCLUDING APPLIANCE TYPE, USAGE, AND STOMAL CARE. RN/PATTERN RULER/TAX ECONOMIST MAY PERFORM OSTOMY APPLIANCE CHANGE AND STOMA CARE EACH VISIT NEEDED.] Future Scheduled Test FALL REDUC TION MANAGEMENT; RN TO ASSESS AND OBSERVE, TAX ECONOMIST/PATTERN RULER TO OBSERVE FALL RISK FACTORS AND EDUCATE PATIENT/CAREGIVER ON STRATEGIES TO MINIMIZE THE RISK OF FALLING. [code = FALL REDUCTION MANAGEMENT; RN TO ASSESS AND OBSERVE, TAX ECONOMIST/PATTERN RULER TO OBSERVE FALL RISK FACTORS AND EDUCATE [...] AND GET THROAT FIXED TO LIVE Goal 2025-01-22 Patient Goal - STAY OUT OF HOSPITAL [...] End Date/Time Encounter Type Admission Type Attending [facility] Care Department Encounter ID Discharge Date Discharge Status Discharge Condition Discharge Reason Percent Goals Met 2024-12-22 00:00:00 2025-02-19 00:00:00 Outpatient [place] [facility] [id number] 7
--- OUTSIDE RECORDS SUMMARY | 2025-02-05 14:58 | XMS_ITS | Clinical Summary ---
Author Organization [employer] [facility] Address [address] [place] [address] Care Team Providers Care Child Health Associate Name Role Phone Bob Camp MD Primary Care Provider [phone] Surgical History Surgery Date Site/Laterality Comments ABDOMINAL SURGERY PROCEDURE: HISTORICAL ABDOMINAL SURGERY; COMMENT: multiple procedures, has colostomy, short gut, chronic tyson OTHER SURGICAL HISTORY PROCEDURE: HISTORICAL COLOSTOMY HYSTERECTOMY PROCEDURE: HISTORICAL TOTAL HYSTERECTOMY WITH BSO BLADDER SUSPENSION PROCEDURE: HISTORICAL BLADDER SUSPENSION OTHER SURGICAL HISTORY PROCEDURE: REPAIR MAXILLOFACIAL DEFECTS Medical History Medical History Date Comments Diabetes mellitus ([facility] V 24, [facility] V28) 06/05/2012 DX:Diabetes mellitus (HCC) HTN (hypertension) 06/05/2012 DX:HTN (hyper tension) Encounter for long-term (cur rent) use of other medications 06/05/2012 DX:Encounter for long-term ( current) use of other medications Diabetes mellitus (CMS/HCC V 24, [facility]/HCC V28) 06/05/2012 DX:Diabetes mellitus (HCC) HTN (hypertension) 06/05/2012 DX:HTN (hyper tension) Pulmonary embolism (CMS/HCC V24, [facility]/HCC V28) 06/05/2012 DX:Pulmonary embolism (HCC) PTSD (post-traumatic stress disorder) 06/05/2012 DX:PTSD (post-traumatic stress disorder) A-fib (CMS/HCC V24, [facility] V28) 06/05/2012 DX:A-fib ([facility]) Chronic back pain 06/05/2012 DX:Chronic thao k pain Conversion disorder 06/05/2012 DX:Conversio n disorder Gastroparesis due to DM ([facility] /HCC V24, [facility] V28) 06/05/2012 DX:Gastroparesis due to DM ( [facility]) GERD (gastroesophageal reflux disease) 06/05/2012 DX:GERD (gastroesophageal reflux disease) Depressed 06/05/2012 DX:Depressed Myofascial pain syndrome 06/05/2012 DX:Myof ascial pain syndrome SGS (short gut syndrome) 06/05/2012 DX:SGS (short gut syndrome) SVT (supraventricular tachyc ardia) ([facility] V24) 06/05/2012 DX:SVT (supraventricular tachycardia) ([facility]) Weight loss 06/05/2012 DX:Weight loss Anxiety 06/05/2012 DX:Anxiety Irritable bowel 06/05/2012 DX:Irritable bow el Anemia 06/19/2012 DX:Anemia Migraine 07/25/2012 DX:Migraine History of DVT (deep vein thrombosis) DX:History of DVT (deep vein thrombosis) History of pulmonary embolism DX :History of pulmonary embolism Blind left eye DX:Blind left ey e Seizures (CMS/[facility] V24, CMS/[facility] V28) DX:Seizures ([facility]) Family History Medical History Relation Name [...] Documents on File Type Date Recorded Patient Payroll Administrative Assistant Expl anation Health Care Decision (hx) 12/14/2019 AD YOUSSEF DIRECTIVE Health Care Decision (hx) 12/14/2019 AD YOUSSEF DIRECTIVE Health Care Decision (hx) 12/14/2019 AD YOUSSEF DIRECTIVE Health Care Decision (hx) 12/14/2019 AD YOUSSEF DIRECTIVE Health Care Decision (hx) 12/14/2019 AD YOUSSEF DIRECTIVE Health Care Decision (hx) 12/14/2019 AD YOUSSEF DIRECTIVE Health Care Decision (hx) 12/14/2019 AD YOUSESF DIRECTIVE Health Care Decision (hx) 12/14/2019 AD [...] (hx) 09/21/2014 AD YOUSSEF DIRECTIVE Care Teams Child Health Associate Relationship Specialty Start Date End Date Bbo Camp MD [facility] [address] [place] [address] [address] [place] [address] PCP - General Internal Medicine 03/03/22
--- OUTSIDE RECORDS SUMMARY | 2025-02-05 14:59 | XMS_ITS | Clinical Summary ---
Author Organization Unknown Care Team Providers Care Machine Taper Name Role Phone FEDERICO PAUL, MIKO Unavailable Unavailab Jay SANTOS, BARRINGTON Unavailable Unavailable LINO KIMN, LUI Unavailable Unavailable JANUARY PT, DONN Unavailable Unavailable OBINNA BENCH WORKER HOLLOW HANDLE, JOSÉ ANTONIO Unavailable Unavailable ALISA ALLEN, WAQAS Unavailable Unavailable Payers Payer Name Policy Type Policy Number Effective Date Expira tion Date [facility] [id number] Problems Condition Name Condition Details Condition Category [...] OF PULMONARY EMBOLISM Active 12-22 00:00: 00 JAIL (CURRENT) USE OF ANTICOAGULAN TS Active 12-22 [...] 2023-09 00:00: 00 09-11 00:00 :00 No [id number] Per instruc tions Per instructio ns (route: oral) Med Classific ation: Analgesic , Anti-infl ammatory or Antipyret ic ondansetron HCl 4 mg tablet 2023-09 00:00: 00 09-11 00:00 :00 No [id number] Per instruc tions Per instructio ns (route: oral) Med Classific ation: Gastroint estinal Therapy Agents albuterol sulfate HFA 90 mcg/actuati on aerosol inhaler 2023-09 00:00: 00 09-11 00:00 :00 No [id number] Per instruc tions Per instructio ns (route: inhalation ) Med Classific ation: Respirato ry Therapy Agents levetiracet am 100 mg/mL oral solution 2023-09 00:00: 00 09-11 00:00 :00 No [id number] Per instruc tions Per instructio ns (route: oral) Med Classific ation: Central Nervous System Agents albuterol sulfate HFA 90 mcg/actuati on aerosol inhaler 2023-09 00:00: 00 12-19 23:59 :00 No [id number] WHEEZING 1 puff EVERY 6 HOURS 1 puff EVERY 6 HOURS (route: inhalation ) Med Classific ation: Respirato ry Therapy Agents budesonide- formoterol HFA 80 mcg-4.5 mcg/actuati on aerosol inhaler 2023-09 00:00: 00 12-19 23:59 :00 No [id number] COPD 2 puff 2 TIMES DAILY 2 puff 2 TIMES DAILY (route: inhalation ) Med Classific ation: Respirato ry Therapy Agents dicyclomine 10 mg tablet 2023-09 00:00: 00 12-19 23:59 :00 No [id number] SPASM 10 mg 3 TIMES DAILY 10 mg 3 TIMES DAILY (route: oral) Med Classific ation: Gastroint estinal Therapy Agents duloxetine 60 mg capsule,del ayed release 2023-09 00:00: 00 12-19 23:59 :00 No [id number] ANTIDEPRESS ANT 1 capsule DAILY 1 capsule DAILY (route: oral) Med Classific ation: Central Nervous System Agents Eliquis 5 mg tablet 2023-09 00:00: 00 12-19 23:59 :00 No [id number] PREVENTS BLOOD CLOTS 1 tablet 2 TIMES DAILY 1 tablet 2 TIMES DAILY (route: oral) Med Classific ation: Hematolog ical Agents ferrous sulfate 325 mg (65 mg iron) tablet 2023-09 00:00: 00 12-19 23:59 :00 No [id number] SUPPLEMENT 1 tablet DAILY 1 tablet DAILY (route: oral) Med Classific ation: Electroly te Balance-N utritiona l Products hydromorpho ne 2 mg tablet 2023-09 00:00: 00 12-19 23:59 :00 No [id number] PAIN MANAGEMENT 1 tablet EVERY 12 HOURS 1 tablet EVERY 12 HOURS (route: oral) Med Classific ation: Analgesic , Anti-infl ammatory or Antipyret ic Keppra 100 mg/mL oral solution 2023-09 00:00: 00 12-19 23:59 :00 No [id number] PREVENTS SEIZURES 7.5 mL 2 TIMES DAILY 7.5 mL 2 TIMES DAILY (route: oral) Med Classific ation: Central Nervous System Agents levothyroxi ne 50 mcg tablet 2023-09 00:00: 00 12-19 23:59 :00 No [id number] HYPOTHYROID 1 tablet DAILY 1 tablet DAILY (route: oral) Med Classific ation: Endocrine loperamide 2 mg tablet 2023-09 00:00: 00 12-19 23:59 :00 No [id number] LOOSE STOOLS 1 tablet 4 TIMES DAILY 1 tablet 4 TIMES DAILY (route: oral) Med Classific ation: Gastroint estinal Therapy Agents midodrine 5 mg tablet 2023-09 00:00: 00 12-19 23:59 :00 No [id number] RAISES BLOOD PRESSURE 2 tablet DAILY 2 tablet DAILY (route: oral) Med Classific ation: Cardiovas cular Therapy Agents multivitami n tablet 2023-09 00:00: 00 12-19 23:59 :00 No [id number] SUPPLEMENT 1 tablet DAILY 1 tablet DAILY (route: oral) Med Classific ation: Electroly te Balance-N utritiona l Products naloxone 4 mg/actuatio n nasal spray 2023-09 00:00: 00 12-19 23:59 :00 No [id number] TO REVERSE OPIOID OVERDOSE 1 spray NEEDED 1 spray NEEDED (route: nasal) Med Classific ation: Antidotes and other Reversal Agents ondansetron 4 mg disintegrat ing tablet 2023-09 00:00: 00 12-19 23:59 :00 No [id number] NAUSEA/VOMI TING 1 tablet EVERY 8 HOURS 1 tablet EVERY 8 HOURS (route: oral) Med Classific ation: Gastroint estinal Therapy Agents pantoprazol e 40 mg tablet,amara yed release 2023-09 00:00: 00 12-19 23:59 :00 No [id number] GERD 1 tablet DAILY 1 tablet DAILY (route: oral) Med Classific ation: Gastroint estinal Therapy Agents simvastatin 40 mg tablet 2023-09 00:00: 00 12-19 23:59 :00 No [id number] LOWERS CHOLESTEROL 1 tablet BEDTIME 1 tablet BEDTIME (route: oral) Med Classific ation: Cardiovas cular Therapy Agents thiamine HCl (vitamin B1) 100 mg tablet 2023-09 00:00: 00 12-19 23:59 :00 No [id number] SUPPLEMENT 1 tablet DAILY 1 tablet DAILY (route: oral) Med Classific ation: Electroly te Balance-N utritiona l Products trazodone 50 mg tablet 2023-09 00:00: 00 12-19 23:59 :00 No [id number] IMPROVES SLEEP 1 tablet BEDTIME 1 tablet BEDTIME (route: oral) Med Classific ation: Central Nervous System Agents pantoprazol e 40 mg tablet,amara yed release 12-12 00:00: 00 Yes [id number] GERD 1 tablet DAILY 1 tablet DAILY (route: oral) Med Classific ation: Gastroint estinal Therapy Agents cholestyram ine (with sugar) 4 gram powder for susp in a packet 12-08 00:00: 00 01-05 23:59 :00 No [id number] HIGH CHOLESTERL 4 g DAILY 4 g DAILY (route: oral) Med Classific ation: Cardiovas cular Therapy Agents duloxetine 60 mg capsule,del ayed release 12-08 00:00: 00 Yes [id number] DEPRESSION 1 capsule DAILY 1 capsule DAILY (route: oral) Med Classific ation: Central Nervous System Agents fluticasone propionate 115 mcg-salmete rol 21 mcg/actuati on HFA inhaler 12-08 00:00: 00 Yes [id number] WHEEZING/SO B 2 puff 2 TIMES DAILY 2 puff 2 TIMES DAILY (route: inhalation ) Med Classific ation: Respirato ry Therapy Agents levetiracet am 750 mg tablet 12-08 00:00: 00 12-22 00:00 :00 No [id number] Per instruc tions Per instructio ns (route: oral) Med Classific ation: Central Nervous System Agents levothyroxi ne 50 mcg tablet 12-08 00:00: 00 Yes [id number] HYPOTHYROID ISM 1 tablet EVERY AM 1 tablet EVERY AM (route: oral) Med Classific ation: Endocrine omeprazole 40 mg capsule,del ayed release 12-08 00:00: 00 Yes [id number] GERD 1 capsule DAILY 1 capsule DAILY (route: oral) Med Classific ation: Gastroint estinal Therapy Agents thiamine HCl (vitamin B1) 100 mg tablet 12-08 00:00: 00 Yes [id number] SUPPLEMENT 1 tablet DAILY 1 tablet DAILY (route: oral) Med Classific ation: Electroly te Balance-N utritiona l Products trazodone 50 mg tablet 12-05 00:00: 00 Yes [id number] INSOMNIA 1 tablet BEDTIME 1 tablet BEDTIME (route: oral) Med Classific ation: Central Nervous System Agents hydromorpho ne 4 mg tablet 11-27 00:00: 00 01-05 23:59 :00 No [id number] PAIN 0.5 tablet EVERY 8 HOURS 0.5 tablet EVERY 8 HOURS (route: oral) Med Classific ation: Analgesic , Anti-infl ammatory or Antipyret ic ondansetron HCl 4 mg tablet 11-27 00:00: 00 12-22 00:00 :00 No [id number] Per instruc tions EVERY 8 HOURS NEEDED Per instructio ns EVERY 8 HOURS NEEDED (route: oral) Med Classific ation: Gastroint estinal Therapy Agents amitriptyli ne 25 mg tablet 11-24 00:00: 00 Yes [id number] DEPRESSION 1 tablet BEDTIME 1 tablet BEDTIME (route: oral) Med Classific ation: Central Nervous System Agents albuterol sulfate HFA 90 mcg/actuati on aerosol inhaler 12-22 00:00: 00 Yes [id number] SOB/WHEEZIN G 2 puff EVERY 6 HOURS 2 puff EVERY 6 HOURS (route: inhalation ) Med Classific ation: Respirato ry Therapy Agents cyanocobala min (vit B-12) 1,000 mcg tablet 12-22 00:00: 00 Yes [id number] SUPPLEMENT 1 tablet DAILY 1 tablet DAILY (route: oral) Med Classific ation: Electroly te Balance-N utritiona l Products dicyclomine 20 mg tablet 12-22 00:00: 00 Yes [id number] SPASMS 1 tablet 4 TIMES DAILY 1 tablet 4 TIMES DAILY (route: oral) Med Classific ation: Gastroint estinal Therapy Agents Eliquis 2.5 mg tablet 12-22 00:00: 00 Yes [id number] BLOOD THINNER 2 tablet 2 TIMES DAILY 2 tablet 2 TIMES DAILY (route: oral) Med Classific ation: Hematolog ical Agents levetiracet am 100 mg/mL oral solution 12-22 00:00: 00 Yes [id number] SEIZURES 7.5 mL 2 TIMES DAILY 7.5 mL 2 TIMES DAILY (route: oral) Med Classific ation: Central Nervous System Agents loperamide 2 mg capsule 12-22 00:00: 00 Yes [id number] DIARRHEA 1 capsule 4 TIMES DAILY 1 capsule 4 TIMES DAILY (route: oral) Med Classific ation: Gastroint estinal Therapy Agents midodrine 5 mg tablet 12-22 00:00: 00 Yes [id number] LOW BLOOD PRESSURE 1 tablet 3 TIMES DAILY 1 tablet 3 TIMES DAILY (route: oral) Med Classific ation: Cardiovas cular Therapy Agents multivitami n tablet 12-22 00:00: 00 Yes [id number] SUPPLEMENT 1 tablet DAILY 1 tablet DAILY (route: oral) Med Classific ation: Electroly te Balance-N utritiona l Products naloxone 4 mg/actuatio n nasal spray 12-22 00:00: 00 Yes [id number] OPIOID OVERDOSE Per instruc tions DIRECTED Per instructio ns DIRECTED (route: nasal) Med Classific ation: Antidotes and other Reversal Agents simvastatin 40 mg tablet 12-22 00:00: 00 Yes [id number] HIGH CHOLESTEROL 1 tablet EVERY PM 1 tablet EVERY PM (route: oral) Med Classific ation: Cardiovas cular Therapy Agents Dilaudid 4 mg tablet 4-14 00:00: 00 Yes [id number] PAIN 1 tablet 4 TIMES DAILY 1 tablet 4 TIMES DAILY (route: oral) Med Classific ation: Analgesic , Anti-infl ammatory or Antipyret ic oxycodone 20 mg/mL oral concentrate 01-22 00:00: 00 Yes [id number] PAIN 20 mg EVERY 4 HOURS 20 [...] CONSULTING PHYSICIANS. RN TO OBSERVE AND ASSESS, CLIN APPLICATION SPECIALIST/POULTRY FEED SUPERVISOR TO OBSERVE FOR RISK FOR FALLS AND INSTRUCT IN FALL PREVENTION, HOME SAFETY, MEDICATION MANAGEMENT, INFECTION PREVENTION, AND NUTRITION MANAGEMENT. RN/CLIN APPLICATION SPECIALIST/POULTRY FEED SUPERVISOR NURSE MAY PERFORM O2 SATURATION LEVEL ON ADMISSION AND PRN FOR RN TO ASSESS/CLIN APPLICATION SPECIALIST TO OBSERVE PATIENT, WITH NOTIFICATION TO THE PHYSICIAN IF SATURATION IS 90% IN THE ABSENCE OF MORE SPECIFIC PARAMETERS FROM THE PHYSICIAN. AGENCY MAY PERFORM A RESUMPTION OF CARE VISIT FOLLOWING ANY HOSPITAL ADMISSION. RN/CLIN APPLICATION SPECIALIST/POULTRY FEED SUPERVISOR TO MONITOR CO-MORBID CONDITIONS LISTED ON THE PLAN OF CARE AND ANY NEW CONDITIONS THAT PRESENT THEMSELVES DURING THIS EPISODE TO IDENTIFY CHANGES AND INTERVENE TO MINIMIZE COMPLICATIONS. [code = RN TO OBSERVE, ASSESS, EVALUATE, AND DEVELOP AN INDIVIDUALIZED PLAN OF CARE. AGENCY MAY ACCEPT ORDERS FROM CONSULTING PHYSICIANS. RN TO OBSERVE AND ASSESS, CLIN APPLICATION SPECIALIST/POULTRY FEED SUPERVISOR TO OBSERVE FOR RISK FOR FALLS AND INSTRUCT IN FALL PREVENTION, HOME SAFETY, MEDICATION MANAGEMENT, INFECTION PREVENTION, AND NUTRITION MANAGEMENT. RN/CLIN APPLICATION SPECIALIST/POULTRY FEED SUPERVISOR NURSE MAY PERFORM O2 SATURATION LEVEL ON ADMISSION AND PRN FOR RN TO ASSESS/CLIN APPLICATION SPECIALIST TO OBSERVE PATIENT, WITH NOTIFICATION TO THE PHYSICIAN IF SATURATION IS 90% IN THE ABSENCE OF MORE SPECIFIC PARAMETERS FROM THE PHYSICIAN. AGENCY MAY PERFORM A RESUMPTION OF CARE VISIT FOLLOWING ANY HOSPITAL ADMISSION. RN/CLIN APPLICATION SPECIALIST/POULTRY FEED SUPERVISOR TO MONITOR CO-MORBID CONDITIONS LISTED ON THE PLAN OF CARE AND ANY NEW CONDITIONS THAT PRESENT THEMSELVES DURING THIS EPISODE TO IDENTIFY CHANGES AND INTERVENE TO MINIMIZE COMPLICATIONS.] Future Scheduled Test RISK FOR H OSPITALIZATION; RN TO ASSESS/TEACH, POULTRY FEED SUPERVISOR/CLIN APPLICATION SPECIALIST TO OBSERVE/TEACH PATIENT/CAREGIVER ON RISK FOR HOSPITALIZATION/EMERGENCY ROOM VISITS, TEACH SIGNS AND SYMPTOMS THAT PUT PATIENT AT RISK, WHEN TO NOTIFY NURSE/PHYSICIAN OF COMPLICATIONS/DECLINE, AND WHEN TO CALL 911. [code = RISK FOR HOSPITALIZATION; RN TO ASSESS/TEACH, POULTRY FEED SUPERVISOR/CLIN APPLICATION SPECIALIST TO OBSERVE/TEACH PATIENT/CAREGIVER ON RISK FOR HOSPITALIZATION/EMERGENCY ROOM VISITS, TEACH SIGNS AND SYMPTOMS THAT PUT PATIENT AT RISK, WHEN TO NOTIFY NURSE/PHYSICIAN OF COMPLICATIONS/DECLINE, AND WHEN TO CALL 911.] Future Scheduled Test MEDICATION MANAGEMENT; RN/CLIN APPLICATION SPECIALIST/POULTRY FEED SUPERVISOR TO REVIEW MEDICATIONS FOR INTERACTIONS, EFFECTIVENESS OF DRUG THERAPY, AND SIGNS/SYMPTOMS OF ADVERSE REACTIONS. MAY INSTRUCT AND REINFORCE MEDICATION TEACHING RELATED TO THE USE OF MEDICATIONS, DOSAGE, FREQUENCY, PURPOSE, SIDE EFFECTS, AND TO REPORT COMPLICATIONS. [code = MEDICATION MANAGEMENT; RN/CLIN APPLICATION SPECIALIST/POULTRY FEED SUPERVISOR TO REVIEW MEDICATIONS FOR INTERACTIONS, EFFECTIVENESS OF DRUG THERAPY, AND SIGNS/SYMPTOMS OF ADVERSE REACTIONS. MAY INSTRUCT AND REINFORCE MEDICATION TEACHING RELATED TO THE USE OF MEDICATIONS, DOSAGE, FREQUENCY, PURPOSE, SIDE EFFECTS, AND TO REPORT COMPLICATIONS.] Future Scheduled Test PAIN MANAG EMENT; RN TO ASSESS AND TEACH, POULTRY FEED SUPERVISOR/CLIN APPLICATION SPECIALIST TO OBSERVE AND TEACH AND PROVIDE EDUCATION ON PAIN MANAGEMENT TECHNIQUES. [code = PAIN MANAGEMENT; RN TO ASSESS AND TEACH, POULTRY FEED SUPERVISOR/CLIN APPLICATION SPECIALIST TO OBSERVE AND TEACH AND PROVIDE EDUCATION ON PAIN MANAGEMENT TECHNIQUES.] Future Scheduled Test GENITOURIN KAYLA MANAGEMENT; RN TO ASSESS AND TEACH, CLIN APPLICATION SPECIALIST/POULTRY FEED SUPERVISOR TO OBSERVE AND TEACH RELATED TO ALTERED GENITOURINARY STATUS TO MINIMIZE COMPLICATIONS AND REDUCE HOSPITALIZATION. [code = GENITOURINARY MANAGEMENT; RN TO ASSESS AND TEACH, CLIN APPLICATION SPECIALIST/POULTRY FEED SUPERVISOR TO OBSERVE AND TEACH RELATED TO ALTERED GENITOURINARY STATUS TO MINIMIZE COMPLICATIONS AND REDUCE HOSPITALIZATION.] Future Scheduled Test URINARY TR ACT INFECTION MANAGEMENT; RN/POULTRY FEED SUPERVISOR/CLIN APPLICATION SPECIALIST TO PROVIDE SKILLED TEACHING AND SELF- CARE MANAGEMENT RELATED TO UTI TO MINIMIZE COMPLICATIONS AND REDUCE THE RISK OF HOSPITALIZATION. [code = URINARY TRACT INFECTION MANAGEMENT; RN/POULTRY FEED SUPERVISOR/CLIN APPLICATION SPECIALIST TO PROVIDE SKILLED TEACHING AND SELF- CARE MANAGEMENT RELATED TO UTI TO MINIMIZE COMPLICATIONS AND REDUCE THE RISK OF HOSPITALIZATION.] Future Scheduled Test UROSTOMY M ANAGEMENT; RN/POULTRY FEED SUPERVISOR/CLIN APPLICATION SPECIALIST TO INSTRUCT PATIENT/CAREGIVER ON UROSTOMY MANAGEMENT INCLUDING APPLIANCE TYPE, USAGE, AND STOMA CARE EACH VISIT NEEDED. [code = UROSTOMY MANAGEMENT; RN/POULTRY FEED SUPERVISOR/CLIN APPLICATION SPECIALIST TO INSTRUCT PATIENT/CAREGIVER ON UROSTOMY MANAGEMENT INCLUDING APPLIANCE TYPE, USAGE, AND STOMA CARE EACH VISIT NEEDED.] Future Scheduled Test GASTROINTE STINAL MANAGEMENT; RN TO ASSESS AND TEACH, POULTRY FEED SUPERVISOR/CLIN APPLICATION SPECIALIST TO OBSERVE AND TEACH RELATED TO ALTERED GASTROINTESTINAL STATUS TO MINIMIZE COMPLICATIONS AND REDUCE HOSPITALIZATION. [code = GASTROINTESTINAL MANAGEMENT; RN TO ASSESS AND TEACH, POULTRY FEED SUPERVISOR/CLIN APPLICATION SPECIALIST TO OBSERVE AND TEACH RELATED TO ALTERED GASTROINTESTINAL STATUS TO MINIMIZE COMPLICATIONS AND REDUCE HOSPITALIZATION.] Future Scheduled Test COLOSTOMY/ ILEOSTOMY TEACHING/MANAGEMENT; RN/POULTRY FEED SUPERVISOR/CLIN APPLICATION SPECIALIST TO INSTRUCT PATIENT/CAREGIVER ON COLOSTOMY MANAGEMENT INCLUDING APPLIANCE TYPE, USAGE, AND STOMAL CARE. RN/POULTRY FEED SUPERVISOR/CLIN APPLICATION SPECIALIST MAY PERFORM OSTOMY APPLIANCE CHANGE AND STOMA CARE EACH VISIT NEEDED. [code = COLOSTOMY/ILEOSTOMY TEACHING/MANAGEMENT; RN/POULTRY FEED SUPERVISOR/CLIN APPLICATION SPECIALIST TO INSTRUCT PATIENT/CAREGIVER ON COLOSTOMY MANAGEMENT INCLUDING APPLIANCE TYPE, USAGE, AND STOMAL CARE. RN/POULTRY FEED SUPERVISOR/CLIN APPLICATION SPECIALIST MAY PERFORM OSTOMY APPLIANCE CHANGE AND STOMA CARE EACH VISIT NEEDED.] Future Scheduled Test FALL REDUC TION MANAGEMENT; RN TO ASSESS AND OBSERVE, CLIN APPLICATION SPECIALIST/POULTRY FEED SUPERVISOR TO OBSERVE FALL RISK FACTORS AND EDUCATE PATIENT/CAREGIVER ON STRATEGIES TO MINIMIZE THE RISK OF FALLING. [code = FALL REDUCTION MANAGEMENT; RN TO ASSESS AND OBSERVE, CLIN APPLICATION SPECIALIST/POULTRY FEED SUPERVISOR TO OBSERVE FALL RISK FACTORS AND EDUCATE [...] End Date/Time Encounter Type Admission Type Attending [facility] Care Department Encounter ID Discharge Date Discharge Status Discharge Condition Discharge Reason Percent Goals Met 2024-12-22 00:00:00 2025-02-19 00:00:00 Outpatient [place] [facility] [id number] 26.6 [id number]
== END 2025-02-05 15:00 | disposition home or self-care (01) ==
LOC: HO.HMCH 14:23
PROVIDERS: PCP Internal Medicine; Visit Provider Physician Assistant Medical
DX: Z09 Encounter for follow-up examination after completed treatment for conditions other than malignant neoplasm (principal); Z87.19 Personal history of other diseases of the digestive system; I95.1 Orthostatic hypotension

== ENCOUNTER → 2025-02-05 14:22 | Outpatient (BNVA) | payer MEDICARE, SELFPAY | PROVIDERS: PCP Internal Medicine; Visit Provider Physician Assistant Medical | DX: I95.1 Orthostatic hypotension (principal); R10.9 Unspecified abdominal pain; K94.09 Other complications of colostomy; I48.91 Unspecified atrial fibrillation; K21.9 Gastro-esophageal reflux disease without esophagitis; Z09 Encounter for follow-up examination after completed treatment for conditions other than malignant neoplasm; Z87.19 Personal history of other diseases of the digestive system; Z85.038 Personal history of other malignant neoplasm of large intestine; Z79.01 Long term (current) use of 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 | CPT/HCPCS: 96127; 99212 ==

== ENCOUNTER 2025-03-26 13:18 | Outpatient (AMB) | payer MEDICARE, SELFPAY ==
--- OUTSIDE RECORDS SUMMARY | 2025-03-26 13:27 | XMS_ITS | Clinical Summary ---
Author Organization [employer] [facility] Address [address] [place] [address] Care Team Providers Care Veneer Stock Grader Name Role Phone Bob Camp MD Primary Care Provider [phone] Surgical History Surgery Date Site/Laterality Comments ABDOMINAL SURGERY PROCEDURE: HISTORICAL ABDOMINAL SURGERY; COMMENT: multiple procedures, has colostomy, short gut, chronic tyson OTHER SURGICAL HISTORY PROCEDURE: HISTORICAL COLOSTOMY HYSTERECTOMY PROCEDURE: HISTORICAL TOTAL HYSTERECTOMY WITH BSO BLADDER SUSPENSION PROCEDURE: HISTORICAL BLADDER SUSPENSION OTHER SURGICAL HISTORY PROCEDURE: REPAIR MAXILLOFACIAL DEFECTS Medical History Medical History Date Comments Diabetes mellitus ([facility] V 24, [facility] V28) 06/05/2012 DX:Diabetes mellitus (HCC) HTN (hypertension) 06/05/2012 DX:HTN (hyper tension) Encounter for long-term (cur rent) use of other medications 06/05/2012 DX:Encounter for long-term ( current) use of other medications Diabetes mellitus (CMS/HCC V 24, [facility]/HCC V28) 06/05/2012 DX:Diabetes mellitus (HCC) HTN (hypertension) 06/05/2012 DX:HTN (hyper tension) Pulmonary embolism (CMS/HCC V24, [facility]/HCC V28) 06/05/2012 DX:Pulmonary embolism (HCC) PTSD (post-traumatic stress disorder) 06/05/2012 DX:PTSD (post-traumatic stress disorder) A-fib (CMS/HCC V24, [facility] V28) 06/05/2012 DX:A-fib ([facility]) Chronic back pain 06/05/2012 DX:Chronic thao k pain Conversion disorder 06/05/2012 DX:Conversio n disorder Gastroparesis due to DM ([facility] /HCC V24, [facility] V28) 06/05/2012 DX:Gastroparesis due to DM ( [facility]) GERD (gastroesophageal reflux disease) 06/05/2012 DX:GERD (gastroesophageal reflux disease) Depressed 06/05/2012 DX:Depressed Myofascial pain syndrome 06/05/2012 DX:Myof ascial pain syndrome SGS (short gut syndrome) 06/05/2012 DX:SGS (short gut syndrome) SVT (supraventricular tachyc ardia) ([facility] V24) 06/05/2012 DX:SVT (supraventricular tachycardia) ([facility]) Weight loss 06/05/2012 DX:Weight loss Anxiety 06/05/2012 DX:Anxiety Irritable bowel 06/05/2012 DX:Irritable bow el Anemia 06/19/2012 DX:Anemia Migraine 07/25/2012 DX:Migraine History of DVT (deep vein thrombosis) DX:History of DVT (deep vein thrombosis) History of pulmonary embolism DX :History of pulmonary embolism Blind left eye DX:Blind left ey e Seizures ([facility] V24, [facility] V28) DX:Seizures ([facility]) Family History Medical History Relation [...] 2006 Zoster Vaccines (1 of 2) 2006 RSV Immunization Adult Patie nts (1 - Risk 60-74 years 1-dose series) 2016 Cholesterol Screening (Lipid Panel) 08/23/2022 Colorectal Cancer [...] season) 2024 Influenza Vaccine (Season Ended) 2025 HIB Vaccines Aged Out No longer eligi [...] Documents on File Type Date Recorded Patient Straw Hat Brusher Expl anation Health Care Decision (hx) 12/14/2019 [...] (hx) 09/21/2014 AD YOUSSEF DIRECTIVE Care Teams Veneer Stock Grader Relationship Specialty Start Date End Date Bob Camp MD [facility] [address] [place] [address] [address] [place] [address] PCP - General Internal Medicine 03/03/22
[2025-03-26 13:40] VITALS: BP 114/72; PULSE 88; RESP 18; TEMP 36.2; O2SAT 98; BMI 24.6
--- NOTE | 2025-03-26 13:40 | A.OFFPC_ITS ---
Vital Signs 03/26/25 13:40 Height 5 ft Weight 126 lb 2 oz BMI 24.6 BP 114/72 Blood Pressure Location Lt brachial Position Sitting Respiration 18 Pulse 88 Pulse Source Pulse Oximeter Temp 97.1 F Temp Source Temporal Artery Scan Pulse Oximetry (%) 98 Oxygen Delivery Method Room Air Intake Visit Reasons: [facility] Dr. Steiner Ventilating Equipment Installer Required: No Accompanied by: Self / Same As Patient Allergies erythromycin base (ERYTHROMYCIN BASE) Allergy (Severe, Verified 03/26/25 13:41) Anaphylaxis levofloxacin (From Levaquin) Allergy (Severe, Verified 03/26/25 13:41) Anaphylaxis Penicillins (PCN) Allergy (Severe, Verified 03/26/25 13:41) Anaphylaxis seafood Allergy (Severe, Verified 03/26/25 13:41) Anaphylaxis Sulfa (Sulfonamide Antibiotics) (SULFA (SULFONAMIDE ANTIBIOTICS)) Allergy (Severe, Verified 03/26/25 13:41) Anaphylaxis, vomiting Tetracyclines Allergy (Severe, Verified 03/26/25 13:41) Anaphylaxis gabapentin Allergy (Intermediate, Verified 03/26/25 13:41) Hives pregabalin (From Lyrica) Allergy (Intermediate, Verified 03/26/25 13:41) Hives divalproex sodium (Depakote) Allergy (Unknown, Verified 03/26/25 13:41) altered mental status gluten (GLUTEN) Allergy (Unknown, Verified 03/26/25 13:41) BLOATING,RASH rice Allergy (Verified 03/26/25 13:41) Unknown Medication List - Last Reconciled 03/26/25 by Era Erazo PA-C Advair HFA 115-21 mcg/actuation (fluticasone propion-salmeterol) 2 puffs inhalation Q12H NS albuterol sulfate 90 mcg/actuation 2 puffs inhalation Q6H PRN amitriptyline 25 mg PO BEDTIME 30 days apixaban (Eliquis) 5 mg PO BID 30 days cane As directed cholestyramine (with sugar) 4 gram 4 grams PO BID 30 days colostomy bags As directed [colostomy supplies As directed] cyanocobalamin (vitamin B-12) 3,000 mcg PO DAILY 90 days duloxetine 60 mg PO DAILY 90 days ferrous sulfate 325 mg PO DAILY fludrocortisone 0.1 mg PO DAILY food supplemt, lactose-reduced (Boost) 1 ea PO TIDWMEAL levetiracetam mg PO levetiracetam 750 mg PO BID 30 days levothyroxine 50 mcg PO DAILY loperamide (Imodium A-D) 2 mg PO Q6H PRN loratadine 10 mg PO DAILY magnesium oxide 1 tab PO BID midodrine 10 mg PO QID diebrndu-dnm-HN-lycopen-lutein 0.4 mg-300 mcg- 250 mcg (CertaVite Senior) 1 tab PO DAILY omeprazole 40 mg PO DAILY pantoprazole 40 mg PO DAILY potassium chloride ER 10 mEq PO BID simvastatin 40 mg PO BEDTIME Symbicort 80-4.5 mcg/actuation (budesonide-formoterol) 2 puffs inhalation BID NS thiamine HCl (vitamin B1) (Vitamin B-1) 100 mg PO DAILY trazodone 50 mg PO BEDTIME Tobacco use date assessed: 03/26/25 Fall risk assessment: 2 + Falls in past year Last assessed Fall Risk: 03/26/25 Dental Screening Dental Screen Date: 02/05/25 Did you have a dental visit in the last 12 months?: No Did you have a dental problem in the last 6 months where you did not have access to dental care?: No Was dental information given to patient?: No ERON [facility] 03/17/ Dr. Obdulia LITTLEJOHN Details 69-year-old female with past medical his tory hypothyroid, pseudoseizures, epilepsy, hypercholesterolemia, history of colon cancer, neurogenic bladder, COPD, IBS, history of pulmonary embolism last seen 01/2025 by PA coming in for transfer of care. In review of the notes, patient was seen in [facility] ED 03/02/2025 for multiple problems including weakness, fatigue and LOC and also found to have starvation ketoacidosis. For dysphagia she underwent EGD 03/09/25 showing subtle luminal narrowing s/p dilation advised to continue on PPI and soft diet. She was having high output with her ostomy and advised to inc rease loperamide. She was having HoTN secondary to high ostomy output, adrenal testing normal, discharged on midodrine and fludrocortisone. For abdominal pain treated with Dilaudid which was advised to d/c outpatient. She was also started on B12, thiamine and D3 supplementation. She was also found to have breast mass with slight increase in size of 8mm inferior right breast asvised mammogram for further evaluation. She was d/c home 03/17/2025. She was seen outpatient GI 03/18/2025 recommend r/s manometry, still having high output ostomy plan for stool cultures, and continue on imodium and plan for eventual colonoscopy. She was seen by breast center [facility] 03/25/2025 plan for diagnostic mammogram with right breast US. Presenting with atrial fibrillation, dysphagia, and a breast mass. The patient has experienced episodes of atrial fibrillation with a heart rate reaching 400 bpm. She has not seen her metal fabricator welder, Dr. Del Toro, for a couple of years due to insurance issues but plans to resume care with him after changing her insurance. The patient underwent a barium swallow test revealing esophageal narrowing, followed by an endoscopy with dilation. She remains on a soft diet. The patient requires increased doses of loperamide and supplementation with B12, thiamine, and vitamin D due to deficiencies. The patient reports constant abdominal pain near the umbilical region, exacerbated by eating, and has been present for about eight months. She is unable to take NSAIDs due to being on Eliquis. The patient experiences morning nausea and vomiting and is currently on pantoprazole and omeprazole and following with GI. [facility] Medical History Paroxysmal A-fib Orthostatic hypotension History of small bowel obstruction Hospital discharge follow-up History of colon cancer History of gastric cancer History of pulmonary embolus (PE) Acute suprapubic pain Neurogenic bladder, NOS COVID-19 Primary cancer of foot Pulmonary embolism Degenerative cervical disc Lumbar disc disease Celiac disease Pure hypercholesterolemia Epilepsy Hypothyroidism COPD (chronic obstructive pulmonary disease) Pseudoseizure Conversion disorder Colon cancer Allergy to multiple drugs Deep vein thrombosis Surgical History History of endoscopy History of esophagogastroduodenoscopy (EGD) History of arthroplasty History of hysterectomy (~1979) Hx of cholecystectomy S/P IVC filter History of partial surgical removal of colon History of partial gastrectomy History of colectomy History of colostomy reversal History of bladder surgery History of sinus surgery History of facial surgery History of colonoscopy (~06/12/24) Family History Mother CAD (coronary artery disease) Other Mental health disorder Social History Household Members: None Household Members Other:: 1 Housing: Apartment Do you presently have visiting nurse or other home services: Yes Alcohol intake: former Patient Tobacco Use Status: Never used Tobacco e-Cigarette/Vaping Use: Never Used Second Hand Smoke Exposure: Yes Advance Directives Date on File: 08/08/23 service: No Current occupational status: disabled Cognitive needs: Yes (cane) Hearing needs: No Vision needs: Yes (Glasses) Questionnaire PHQ-9 Over the last 2 weeks, how often have you been bothered by any of the following problems? 1. Little interest or pleasure in doing things: not at all 2. Feeling down, depressed, or hopeless: not at all 3. Trouble falling or staying asleep, or sleeping too much: several days 4. Feeling tired or having little energy: several days 5. Poor appetite or overeating: several days 6. Feeling bad about yourself - or that you are a failure or have let yourself or your family down: not at all 7. Trouble concentrating on things, such as reading the newspaper or watching television: not at all 8. Moving or speaking so slowly that other people could have noticed. Or the opposite - being so fidgety or restless that you have been moving around a lot more than usual: not at all 9. Thoughts that you would be better off or of hurting yourself in some way: not at all Total score: 3 Depression Screening Interpretation: Negative Depression Screening Done: Yes Source: Developed by Drs. Ranjit Valdovinos, Anila Baldwin, Saud Allison and colleagues, with an educational lionel from [employer] Thrive Questionnaire Date Thrive assessed: 01/16/25 I am a: Patient What is your living situation today?: I have a steady place to live Within the past 12 months, did the food you bought not last and you didn't have the money to get more?: Never true Within the past 12 months, did you worry whether your food would run out before you got money to buy more?: Never true Do you have trouble paying for medicines?: No Do you have trouble getting transportation to medical appointments?: Yes Do you have trouble paying your heating and electricity bill?: No Do you have trouble taking care of your child, family member or friend?: No Do you have trouble with day-to-day activities such as bathing, preparing meals, shopping, managing finances, etc.?: No Are you currently unemployed and looking for a job?: No Are you interested in more education?: No Please select the resources that you would like help with: None Currently or been in a relationship where the following occur: No concerns reported THRIVE Score: 1 AUDIT C Alcohol Use Questionnaire (AUDIT-C) 1. How often do you have a drink containing alcohol?: Never 3. How often do you have six or more drinks on one occasion?: Never Total Score: 0 Score Reviewed/Action Taken: No EARNESTINE-7 AMB Questionnaire EARNESTINE-7 Date EARNESTINE - 7 assessed: 02/05/25 Feeling nervous, anxious, or on edge: 0 = Not at all Not being able to stop or control worryin = Not at all Worrying too much about different things: 0 = Not at all Trouble relaxin = Not at all Being so restless that it is hard to sit still: 1 = Several days Becoming easily annoyed or irritable: 1 = Several days Feeling afraid as if something awful might happen: 0 = Not at all Total EARNESTINE-7 score (0-4 normal; 5-9 mild; 10-14 moderate; 15-21 severe): 2 Source: Developed by Drs. Ranjit Valdovinos, Anila Baldwin, Saud Allison and colleagues, with an educational lionel from [employer] EARNESTINE-7 Assessment Billing EARNESTINE-7 Assessment Tool: EARNESTINE-7 Assessment 78174 Review of Systems Const Denies body aches, Denies chills, Denies fever(s), Denies headache(s) and Denies poor appetite Eyes Reports no additional complaints ENT Reports dysphagia, Denies dizziness, Denies headache(s) and Denies odynophagia Card Denies chest pain, Denies edema, Denies lightheadedness and Denies dyspnea Resp Denies cough and Denies dyspnea GI Reports abdominal pain, Denies constipation, Reports dysphagia, Reports diarrhea, Reports loose stools, Reports nausea, Denies odynophagia and Denies vomiting Reports no additional complaints Musc Reports no additional complaints and Denies abnormal gait Skin/Breast Reports system reviewed and no additional complaints, except as documented Neuro Denies abnormal gait, Denies dizziness and Denies headache(s) Psych Reports no additional complaints Physical exam (Primary Care) Vital Signs: Last Vital Signs Temp 97.1 F 03/26/25 13:40 Pulse 88 03/26/25 13:40 Resp 18 03/26/25 13:40 BP 114/72 03/26/25 13:40 Pulse Ox 98 03/26/25 13:40 Oxygen Delivery Method Room Air 03/26/25 13:40 BMI result Body Mass Index 24.6 Tobacco/Smoking Status: Tobacco use Status Tobacco use date assessed 03/26/25 03/26/25 13:44 Patient Tobacco Use Status Never used Tobacco 03/26/25 13:44 e-Cigarette/Vaping Use Never Used 03/26/25 13:44 PHQ-9: PHQ-9 Score PHQ-9: Total score 3 03/26/25 14:15 Depression Screening Interpretation: Negative Thrive Assessment: Date of Thrive Assessment Date Thrive assessed 01/16/25 03/26/25 13:44 Currently or been in a relationship where the following occur: No concerns reported Const General: cooperative, healthy appearing, comfortable and no acute distress Orientation/consciousness: patient oriented x3 HENMT Head: Yes normocephalic Ears: hearing grossly normal bilaterally General nose exam: Normal external nose present Eyes General: appearance normal, both eyes and all related structures Conjunctivae: conjunctivae normal Neck Neck: Yes full ROM and Yes no lymphadenopathy Resp Effort & Inspection: normal respiratory effort Auscultation: clear to auscultation bilaterally, no crackles, no rales, no rhonchi and no wheezes Cardio Rate: regular rate Rhythm: regular rhythm GI Palpation (GI): Soft to palpation, not firm, nontender, no guarding, not rigid, no pulsatile masses and No Rebound tenderness present Skin General skin exam: no rashes or lesions noted Neuro General: patient oriented x3 Gait exam (Neuro): Normal gait present Extrem General: Yes normal to inspection, Yes full ROM and No edema Psych Affect: normal affect Attitude: cooperative Insight: Good insight present (Psych) Judgement: Good judgement present (Psych) Coding Level of Care Code Est Pt Level 4 (93701) Diagnoses Paroxysmal A-fib I48.0 Colitis K52.9 Malabsorption K90.9 Breast mass N63.0 Laterality: right Dysphagia, unspecified type R13.10 Dysphagia type: unspecified Additional Codes EARNESTINE-7 Assessment Billing - EARNESTINE-7 Assessment Tool: EARNESTINE-7 Assessment 13321 ([id number]) Assessment & Plan Assessment & Plan (1) Paroxysmal A-fib: Code(s): I48.0 - Paroxysmal atrial fibrillation Category: Medical Plan: I placed an additional referral to Cardiology as she has not been seen by Dr. Del Toro in many years. Rate control is difficult for this patient as she has issues with hypotension. She is currently on Eliquis for full oral anticoagulation. Continue to follow with Cardiology (2) Colitis: Comment: Loperamide has been ordered. Patient has extensive medication list which has been reviewed. I encouraged her to see the specialists at [facility] for her to continue the medications. Code(s): K52.9 - Noninfective gastroenteritis and colitis, unspecified Category: Medical Plan: Patient is currently undergoing workup with GI for high-output colostomy. She is having stool PCR and other stool testing performed. Currently she is using loperamide for diarrhea and working to replace her electrolytes with water and electrolyte rich beverages. Advised patient to stay well hydrated and continue to follow with GI. I did discuss with the patient we do not typically treat abdominal pain as we do not want to mask the pain. I reviewed the red flag symptoms and when to present for re-evaluation for abdominal pain. (3) Malabsorption: Code(s): K90.9 - Intestinal malabsorption, unspecified Category: Medical Plan: Continue with protein drinks q.i.d.. (4) Breast mass: Code(s): N63.0 - Unspecified lump in unspecified breast Category: Medical Qualifiers: Laterality: right Plan: Patient having a right breast mass currently undergoing workup with [facility] breast Center. She has a diagnostic mammogram and right breast ultrasound scheduled for April. (5) Dysphagia: Code(s): R13.10 - Dysphagia, unspecified Category: Medical Qualifiers: Dysphagia type: unspecified Qualified Code(s): R13.10 - Dysphagia, un specified Plan: Patient is currently working with [facility] gastroenterology and is scheduled to have a manometry and eventually a repeat EGD. She recently underwent EGD with dilation and still finds dysphagia is present. She is on a soft food diet and denies any choking episodes. Plan The patient will follow up with her metal fabricator welder, Dr. Del Toro, to address her atrial fibrillation and ensure proper rate control without exacerbating her low blood pressure. A mammogram and ultrasound are scheduled to evaluate the breast mass, with further management to be determined based on the results. Stool cultures will be conducted to investigate potential infectious causes of the high-output ostomy, and esophageal manometry is planned to assess esophageal muscle function. The patient is advised to continue her current medication regimen, including loperamide, thiamine, and vitamin D supplements, and to avoid NSAIDs due to her anticoagulation therapy with Eliquis. A muscle relaxer will be prescribed for nighttime use to help manage abdominal pain, with a follow-up planned to reassess her symptoms and adjust treatment as necessary. This note was constructed using voice recognition software. While every effort has been made to ensure accuracy and cleaning and washing equipment operator, still areas may have been included sometimes these areas may affect the content or meeting of the given symptoms. Total time spent caring for the patient today was 30 minutes. This includes time spent before the visit reviewing the chart, time spent during the visit, and time spent after the visit and documentation. Patient was informed and verbally consented to the use of an ambient scribe for clinic note documentation during this visit. Orders: Referrals Cardiology Referral I48.0 - Paroxysmal atrial fibrillation, I95.1 - Orthostatic hypotension Medications: New food supplemt, lactose-reduced (Boost) 1 ea PO QID 5,688 mL 3RF K52.9 - Noninfective gastroenteritis and colitis, unspecified, K90.9 - Intestinal malabsorption, unspecified baclofen 5 mg PO BEDTIME 30 tabs 0RF
== END 2025-03-26 15:29 | disposition home or self-care (01) ==
LOC: HO.HMCH 13:19
PROVIDERS: PCP Internal Medicine
DX: I48.0 Paroxysmal atrial fibrillation (principal); K52.9 Noninfective gastroenteritis and colitis, unspecified; K90.9 Intestinal malabsorption, unspecified; N63.0 Unspecified lump in unspecified breast; R13.10 Dysphagia, unspecified

== ENCOUNTER → 2025-03-26 13:18 | Outpatient (BNVA) | payer MEDICARE, SELFPAY | PROVIDERS: PCP Internal Medicine | DX: I48.0 Paroxysmal atrial fibrillation (principal); E78.00 Pure hypercholesterolemia, unspecified; R13.10 Dysphagia, unspecified; K52.9 Noninfective gastroenteritis and colitis, unspecified; K90.9 Intestinal malabsorption, unspecified; N63.10 Unspecified lump in the right breast, unspecified quadrant | CPT/HCPCS: 96127; 99212 ==

== ENCOUNTER → 2025-06-26 10:58 | Day surgery (SDC) | payer OTHER, SELFPAY ==
--- OUTSIDE RECORDS SUMMARY | 2025-06-17 15:11 | XMS_ITS | Encounter Summary ---
Author Organization [facility] Address [address] [place] [address] Phone Care Team Providers Care Freight Dispatcher Name Role Phone Bob Camp MD Primary Care Provid er Encounter Details Date Type Department Care Team (Late st Contact Info) Description 06/12/2024 Procedure Pass [facility] Endoscopy Department [address] [place] [id number] Social History Tobacco Use Types Packs/Day Years Used Date Smoking Tobacco: Never Smokeless Tobacco: Never Alcohol Use Standard Drinks/Week Comments Never 0 (1 standard drink = 0.6 oz pur e alcohol) Home Health Assessment: Transportation Answer Date Recorded Lack of Transportation (Medical) No 05/14/2024 Lack of Transportation (Non-Medical) No 05/14/2024 Patient Unable or Declines to Respond No 05/14/2024 Education Answer Date Recorded Are you interested in more education? Not on jeannette e 10/04/2023 Are you concerned about learning? Not on file 10/04/2023 No 10/04/2023 No 10/04/2023 Food Answer Date Recorded Within the past 6 months we worried whether our food would run out before we got money to buy more. Never True 04/26/2024 Within the past 6 months the food we bought just didn't last and we didn't have enough money to get more. Never True Residential Stability Answer Date Recor ded What is your housing situation today? I have terri garner 04/26/2024 How many times have you move d in the past 12 months? Zero (I did not move) 04/26/2024 Paying for Meds Answer Date Recorded Do you have trouble paying for medicines? No 04/26/2024 Paying Utility Bills Answer Date Record ed Do you have trouble paying your heating or elect ricity bill? No 04/26/2024 Transportation Answer Date Recorded Has the lack of transportati on kept you from medical appointments or from getting medications? No 05/03/2024 Digital Access Answer Date Recorded No 04/26/2024 Yes 04/26/2024 Do you have reliable internet access at home? Ye s 04/26/2024 Do you have a device (e.g., phone, tablet, computer) with a working camera? Yes 04/26/2024 Intimate Partner Violence Answer Date R ecorded Are you denied basic needs s uch as food, clothing, or medical care? No 06/06/2024 In the past 12 months have y ou been in a relationship with a person who hurts, threatens, or tries to control you? No 06/06/2024 Are you denied basic needs s uch as food, clothing, or medical care? No 06/06/2024 In the past 12 months have y ou been in a relationship with a person who hurts, threatens, or tries to control you? 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 It is not the complete legal health record.[facility]
--- OUTSIDE RECORDS SUMMARY | 2025-06-17 15:11 | XMS_ITS | Encounter Summary ---
Author Organization [facility] Address [address] [phone] Phone Care Team Providers Care Turner And Former Automatic Name Role Phone Bob Camp MD Primary Care Provid er Encounter Details Date Type Department Care Team (Late st Contact Info) Description 06/06/2024 Procedure Pass [facility] Radiology [address] [place] [address] Social History Tobacco Use Types Packs/Day Years [...] tries to control you? No 06/06/2024 Comments Unknown Sex and Gender Information Value Date Recorded Sex Assigned at Female 04/08/2024 11:21 AM EDT Legal Sex Female 5:09 PM EST Gender Identity Not on file Sexual Orientation Straight 04/08/2024 11 :21 AM EDT documented as of this encounter Functional Status * Calculated C-SSRS Risk Score (Lifetime/Recent) Answer Date of Assessment Author No Risk Indicated 06/06/2024 12:52 AM EDT Elisabeth Aguilar RN * [place] Suicide Severity Rating Scale (Screener/Recent Self-Report) Question Answer Date of Assessment Author 1. Wish to be (Past 1 Month) No 06/06/2024 12:52 AM EDT Elisabeth Rinaldi RN 2. Non-Specific Active Suicidal Thoughts (Past 1 Month) No 06/06/2024 12:52 AM EDT Elisabeth Rinaldi RN 6. 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 It is not the complete legal health record.[facility]
--- OUTSIDE RECORDS SUMMARY | 2025-06-17 15:11 | XMS_ITS | Encounter Summary ---
Author Organization [facility] Address [address] [place] [phone] Phone Care Team Providers Care Transferrer Name Role Phone Bob Camp MD Primary Care Provid er Encounter Details Date Type Department Care Team (Late st Contact Info) Description 06/12/2024 Procedure Pass [facility] Radiology [address] [place] [address] Social History Tobacco Use Types Packs/Day Years [...] documented as of this encounter Care Teams Transferrer Relationship Specialty Start Date End Date Bob Camp MD NPI: [id number] [place] [id number] PCP - General Internal Medicine 10/05/23 documented as of this encounter Additional Source Comments The information contained in this document represents components of the legal health record. It is not the complete legal health record.[facility]
--- OUTSIDE RECORDS SUMMARY | 2025-06-17 15:11 | XMS_ITS | Encounter Summary ---
Author Organization [facility] Address [address] [place] [address] Phone Care Team Providers Care Novelty Dipper Name Role Phone Bob Camp MD Primary Care Provid er Encounter Details Date Type Department Care Team (Late st Contact Info) Description 04/15/2024 Procedure Pass [facility] Radiology [address] [place] [address] Social History Tobacco Use Types Packs/Day Years Used Date Smoking Tobacco: Never Smokeless Tobacco: Never Education Answer Date Recorded Are you interested in more education? Not on jeannette e 10/04/2023 Are you concerned about learning? Not on file 10/04/2023 No 10/04/2023 No 10/04/2023 Food Answer Date Recorded Within the past 6 months we worried whether our food would run out before we got money to buy more. Never True 04/08/2024 Within the past 6 months the food we bought just didn't last and we didn't have enough money to get more. Never True Residential Stability Answer Date Recor ded What is your housing situation today? I have terri sing 04/08/2024 How many times have you moved in the past 12 mon ths? Unable to assess 04/08/2024 Paying for Meds Answer Date Recorded Do you have trouble paying for medicines? No 04/08/2024 Paying Utility Bills Answer Date Record ed Do you have trouble paying your heating or elect ricity bill? No 04/08/2024 Transportation Answer Date Recorded Has the lack of transportati on kept you from medical appointments or from getting medications? Yes 04/08/2024 Digital Access Answer Date Recorded No 04/08/2024 Yes 04/08/2024 Do you have reliable internet access at home? Ye s 04/08/2024 Do you have a device (e.g., phone, tablet, computer) with a working camera? Yes 04/08/2024 Comments Unknown Sex and Gender Information Value [...] documented as of this encounter Care Teams Novelty Dipper Relationship Specialty Start Date End Date Bob Camp MD [address] [place] [phone] PCP - General Internal Medicine 10/05/23 documented as of this encounter Additional Source Comments The information contained in this document represents components of the legal health record. It is not the complete legal health record.[facility]
--- OUTSIDE RECORDS SUMMARY | 2025-06-17 15:11 | XMS_ITS | Encounter Summary ---
Author Organization [facility] Address [address] [place] [address] Phone Care Team Providers Care Pharmacy Resource Tech Name Role Phone Bob Camp MD Primary Care Provid er Encounter Details Date Type Department Care Team (Late st Contact Info) Description 04/09/2024 Procedure Pass [facility] Periop [address] [place] [address] Social History Tobacco Use Types Packs/Day Years [...] have you moved in the past 12 sun ths? Unable to assess 04/08/2024 Paying for [...] documented as of this encounter Care Teams Pharmacy Resource Tech Relationship Specialty Start Date End Date Bob Camp MD [address] [place] [id number] PCP - General Internal Medicine 10/05/23 documented as of this encounter Additional Source Comments The information contained in this document represents components of the legal health record. It is not the complete legal health record.[facility]
--- OUTSIDE RECORDS SUMMARY | 2025-06-17 15:11 | XMS_ITS | Clinical Summary ---
Author Organization [facility] Address [address] [place] [id number] Phone Care Team Providers Care Paste Up Copy Camera Operator Name Role Phone Bob Camp MD Primary Care Provid er Allergies Active Allergy Reactions Criticality Noted Date Comments Amoxicillin GI Upset,Rash Low 09/25/2023 Clindamycin GI Upset,Rash Low 09/25/2023 Codeine GI Upset Medium 09/25/2023 Divalproex Other (See Comments),Unknown Medium 09/25/2023 Doxycycline GI Upset,Rash Low 09/25/2023 Erythromycin GI Upset,Other (See Comments),Rash,Unkn own Low 09/25/2023 Gabapentin Shortness Of Breath High 09/25/2023 Levofloxacin GI Upset,Rash Low 09/25/2023 Macrolide Antibiotics Unknown 12/27/1995 Pt said anaphylactic x3 w/ various antibiotics Oxacillin GI Upset,Rash Low 09/25/2023 Penicillin Anaphylaxis,Rash High 09/25/2023 tolarates cefepime, ceftriaxone 07/2022 Penicillins Unknown 12/27/1995 Rifampin GI Upset,Rash Low 09/25/2023 Sulfa (Sulfonamide Antibiotics) GI Upset,Rash Low 09/25/2023 Sulfamethoxazole-Trime thoprim Other (See Comments),Unknown Medium 09/25/2023 Tetracycline GI Upset,Rash Low 09/25/2023 Ketorolac Hives,Nausea and/or Vomiting 06/07/2024 Vancomycin GI Upset,Rash Low 09/25/2023 Medications metoprolol succinate (TOPROL-XL) 50 MG 24 hr tablet Take 50 mg by mouth 2 (two) times a day. Active levETIRAcetam (KEPPRA) 750 MG tablet Take 750 mg by mouth 2 (two) times a day. Active rOPINIRole (REQUIP) 1 MG tablet Take 1 mg by mouth nightly at bedtime. Active simvastatin (ZOCOR) 40 MG tablet Take 40 mg by mouth nightly at bedtime. Active tiotropium (SPIRIVA WITH HANDIHALER) 18 mcg inhalation capsule Inhale 1 capsule into the lungs daily. 04/30/2024 Active traZODone (DESYREL) 50 MG tablet Take 50 mg by mouth nightly at bedtime. Active DULoxetine (CYMBALTA) 60 MG capsule Take 1 capsule by mouth daily. 04/30/2024 Active SYMBICORT 80-4.5 mcg/actuation inhaler Inhale 2 puffs into the lungs 2 (two) times a day. Active ELIQUIS 5 mg tablet Take 1 tablet by mouth 2 (two) times a day. 11/23/2023 Active albuterol 90 mcg/actuation inhaler Inhale 2 puffs into the lungs. 03/26/2024 Active ferrous sulfate 324 mg (65 mg confederated goshute iron) TbEC Take 1 tablet (324 mg total) by mouth daily with breakfast. 30 tablet 6 05/07/2024 Active multivitamin-mi nerals-lutein (CENTRUM SILVER) Tab Take 1 tablet by mouth daily. 05/06/2024 Active midodrine (PROAMATINE) 5 MG tablet Take 5 mg by mouth 3 (three) times a day. Active levothyroxine (SYNTHROID, LEVOTHROID) 50 MCG tablet Take 50 mcg by mouth every morning. 06/04/2024 Active acetaminophen (TYLENOL) 325 mg tablet Take 2 tablets (650 mg total) by mouth every 6 (six) hours as needed. 06/13/2024 Active oxyCODONE 5 MG immediate release tablet Take 1 tablet (5 mg total) by mouth every 4 (four) hours as needed. Partial fill ok. 15 tablet 06/13/2024 Active Active Problems Problem Noted Date Diagnosed Date Colitis 06/06/2024 Chronic pain following surgery or procedure 04/24 Pyelonephritis 04/26/2024 Chronic atrial fibrillation 12/26/2023 CVA (cerebral vascular accident) 12/26/2023 Fibromyalgia 12/26/2023 Borderline personality disorder 12/26/2023 PTSD (post-traumatic stress disorder) 12/26/2023 Bipolar disorder, unspecified 12/26/2023 History of bladder infections 12/20/2023 Anemia 12/20/2023 Anxiety 12/20/2023 B12 deficiency 12/20/2023 Cataracts, bilateral 12/20/2023 Chronic pain 12/20/2023 Chronic, continuous use of opioids 12/20/2023 Colon cancer 12/20/2023 COPD (chronic obstructive pulmonary disease) Depression 12/20/2023 GERD (gastroesophageal reflux disease) Glaucoma 12/20/2023 Hypertension 12/20/2023 Incisional hernia 12/20/2023 Low back pain 12/20/2023 Migraine 12/20/2023 Neurogenic bladder 12/20/2023 Pulmonary embolism 12/20/2023 Immunizations Immunization Administration Dates Next Due Influenza High-Dose Trivalent Preservative Free IM 06/13/2024 Influenza Quadrivalent Preservative Free IM 04/26,06/08/2018 Pneumococcal conjugate PCV13 05/07/2020 Pneumococcal, Unspecified Formulation 07/03/2014 Zoster recombinant 12/30/2018,06/15/2018 Social History Tobacco Use Types Packs/Day Years Used Date Smoking Tobacco: Never Smokeless Tobacco: Never Tobacco Cessation:Counseling Given: Not Answered Alcohol Use Standard Drinks/Week Comments Never 0 [...] housing situation today? I have terri sing 04/26/2024 How many times have you move [...] Orientation Straight 04/08/2024 11 :21 AM EDT Last Filed Vital Signs Vital Sign Reading Time Taken Comments Blood Pressure 94/52 12/04/2024 1:10 PM EDT Pulse 103 12/04/2024 1:10 PM EDT Temperature 36.7 C (98.1 F) 12/04/2024 1:10 PM EDT Respiratory Rate 16 06/13/2024 12:0 7 PM EDT Oxygen Saturation 98% 12/04/2024 1:10 PM EDT Inhaled Oxygen Concentration - - Weight 57.5 kg (126 lb 12.2 oz) 06/13/2024 6:33 AM EDT Height 149.9 cm (4' 11 ) 06/06/2024 12: 29 AM EDT Body Mass Index 25.6 06/06/2024 12:29 AM EDT Plan of Treatment Health Maintenance Due Date Last Done Comments Adult Td,Tdap Booster 1955 TSH LEVEL 1955 DEPRESSION SCREENING 1968 HEPATITIS C SCREENING 1974 LIPID PANEL 1974 MAMMOGRAM 1996 COLOGUARD 2001 FIT TEST 2001 FOBT 2001 SIGMOIDOSCOPY 2001 VIRTUAL COLONOSCOPY 2001 RSV VACCINE (1 - Risk 60-74 years 1-dose series) 2016 PNEUMOCOCCAL VACCINES (50+ years) (2 of 2 - PPSV23) 07/02/2020 05/07/2020 OSTEOPOROSIS SCREENING INITIAL (ONE-TIME) 2021 INFLUENZA VACCINE (#1) 2025 , 05/23/2019, 06/08/2018 COVID-19 VACCINE (1 - season) 2025 BLOOD PRESSURE 06/06/2025 12/04/2024 CREATININE LEVEL 06/13/2025 06/13/2024, , 06/12/2024, Additional history exists SCREENING FOR DIABETES 06/13/2027 06/13/2024 COLONOSCOPY 06/12/2031 06/12/2024 COLORECTAL CANCER SCREENING 06/12/2031 ZOSTER VACCINES Completed 12/30/2018, 06/15/2018 SMOKING STATUS SCREENING (Once After 26 Yrs) Completed 06/12/2024 HEPATITIS A VACCINES Aged Out No long er eligible based on patient's age to complete this topic HIB VACCINES Aged Out No longer eligi ble based on patient's age to complete this topic MENINGOCOCCAL VACCINES (ACWY) Aged Out No longer eligible based on patient's age to complete this topic MENINGOCOCCAL VACCINES (B) Aged Out N o longer eligible based on patient's age to complete this topic Medical Devices Implanted Type Area Geographic Information Systems Analyst Device Identifier Shelf Expiration Date Model / Serial / Lot Pin Pin Cheek Stent Diversion 7fr 90cm X2 Ureteral Single J Guidewire Ptfe .028 120cm Silicone - [id number] Implanted:Qty: 1 on 04/09/2024 by Bg Castillo MD at [facility] Ureteral Stent N/A: Ureter OLYMPUS JOHN 02/19/2029 [id number] / / [id number] Ivc Filter-12/25/2021 Implanted: 2 by Jim Temple MD (Quantity not on file) [employer] Description:List Rec#[id number] Object Description OptionELITE Retrievable Vena Cava Filter [employer], [email or web address] Strength3 Object StatusConditional 6 Safety Topic / SubjectCoils, Filters, Stents, and Grafts Mesh Surgical [id number] Phasix St Pocketed Bioresorbable Open Positioning System Oval - [id number] Implanted:Qty: 1 on 04/09/2024 by Pedro Pablo Campa MD at [facility] N/A: Abdomen [employer] [id number] 09/20/2025 [id number] / / [id number] Procedures Procedure Name Priority Date/Time Associated Diagnosis Comments BASIC METABOLIC PANEL Routine 06/13/2024 5:30 AM EDT ENDOSCOPY, COLON 06/12/2024 12:2 9 PM EDT from Last 3 Months or Most Recently Relevant to Health Maintenance Results * (ABNORMAL) Basic metabolic panel (06/13/2024 5:30 AM EDT) SODIUM 141 136 - 145 mmol/L [facility] POTASSIUM 3.8 3.4 - 5.1 mmol/L [facility] CHLORIDE 104 98 - 107 mmol/L [facility] CO2 28 22 - 31 mmol/L [facility] BUN 8 6 - 23 mg/dL [facility] CREATININE 0.51 0.50 - 1.20 mg/dL [facility] GLUCOSE 96 70 - 100 mg/dL [facility] CALCIUM 8.4(L) 8.8 - 10.7 mg/dL [facility] EGFR 102 >59 mL/min/1.7 3m2 [facility] Comment:Estimated glomerular filtration rate calculated using the CKD-EPI refit equation. ANION GAP 9 7 - 17 mmol/L [facility] Blood 06/13/2024 5:30 AM EDT 06/13/2024 6:09 AM EDT us Jaden Ponce PA-C LAB BLOOD ORDERABLES Fin al Result Performing Organization Address City/State/[facility] Co de Phone Number [facility] [address] [place] [address] * ENDOSCOPY, COLON (06/12/2024 12:29 PM EDT) 06/12/2024 12:2 9 PM EDT Narrative Transcriptions Epifanio Seaman MD, MPH - 06/12/2024 12:29 PM EDT [facility] Gastroenterology Patient Name: Christi Donald Procedure Date: 06/12/2024 12:29 PM Date of : 1955 Admit Type: Inpatient Age: 68 Room: 2 Gender: Female Note Status: Finalized Attending MD: EPIFANIO SEAMAN MD [id number] Procedure: Colonoscopy Indications: Screening for colorectal malignant neoplasm (last colonoscopy was more than 10 years ago) Providers: EPIFANIO SEAMAN MD [id number], Enrique Dong Referring MD: Santana Sierra MD (Referring MD) Medicines: Monitored Anesthesia Care Complications: No immediate complications. Estimated blood loss: Minimal. Procedure: Pre-Anesthesia Assessment: - Prior to the procedure, a History and Physical was performed, and patient medications, allergies and sensitivities were reviewed. The patient's tolerance of previous anesthesia was reviewed. - The risks and benefits of the procedure and the sedation options and risks were discussed with the patient. All questions were answered and informed consent was obtained. - Patient identification and proposed procedure were verified prior to the procedure. - See the [facility] pre-procedure note for documentation of the pre-procedure assessment. After informed consent was obtained, the scope was passed under direct vision. Throughout the procedure, the patient's blood pressure, pulse, and oxygen saturations were monitored continuously. The Colonoscope was introduced through the descending colostomy and advanced to the terminal ileum, with identification of the appendiceal orifice and IC valve. The colonoscopy was performed without difficulty. The patient tolerated the procedure well. The quality of the bowel preparation was good. The terminal ileum, the ileocecal valve and the appendiceal orifice were photographed. Findings: Two sessile polyps were found in the descending colon and ascending colon. The polyps were 3 to 4 mm in size. These polyps were removed with a cold snare. Resection and retrieval were complete. Verification of patient identification for the specimen was done. Estimated blood loss was minimal. The exam was otherwise without abnormality on direct and retroflexion views. There was evidence of a prior end sigmoid colostomy in the descending colon. This was patent and was characterized by healthy appearing mucosa. The anastomosis was traversed. Impression: - Two 3 to 4 mm polyps in the descending colon and in the ascending colon, removed with a cold snare. Resected and retrieved. - The examination was otherwise normal on direct and retroflexion views. - Patent end sigmoid colostomy, characterized by healthy appearing mucosa. Recommendation: - Case discussed with inpatient consult fellow and attending; further management per consult team - Ok for heparin in 6 hours Epifanio Seaman MD [id number] EPIFANIO SEAMAN MD [id number] 06/12/2024 1:06:08 PM This report has been signed electronically. Number of Addenda: 0 Note Initiated On: 06/12/2024 12:29 PM Santana Sierra MD GI PROCEDUR E ORDERABLES Final Result from Last 3 Months or Most Recently Relevant to Health Maintenance Insurance [employer] PPO MEDICARE REPLACEMENT MEDICARE PART A & B Member Subscriber Plan / Payer (Ef fective 2021-Present) Name:Christi Donald Member ID:[id number] Relation to Subscriber:Self Name:Christi Donald Subscriber ID:[id number] Payer ID:[id number] Group ID:Not on file Type:Medicare Address: [employer] [address] [place] [address] [employer] PPO MEDICARE REPLACEMENT MEDICARE PART A & B Member Subscriber Plan / Payer (Ef fective 2021-Present) Name:Christi Donald Member ID:[id number] Relation to Subscriber:Self Name:Christi Donald Subscriber ID:[id number] Payer ID:[id number] Group ID:Not on file Type:Medicare Address: [employer] [address] [place] [address] [employer] PPO MEDICARE REPLACEMENT MEDICARE PART A & B [employer]ET[employer] O MEDICARE REPLACEMENT MEDICARE PART A & B [employer] PPO MEDICARE REPLACEMENT MEDICARE PART A & B Member Subscriber Plan / Payer (Ef fective 2021-) Name:WillacyChristi molina Member ID:[id number] Relation to Subscriber:Self Name:Christi Donald Subscriber ID:[id number] Payer ID:[id number] Group ID:Not on file Type:Medicare Address: [employer] [address] [place] [address] [employer] PPO MEDICARE REPLACEMENT MEDICARE PART A & B Advance Directives For more information, please contact: [phone] (9AM - 5PM [facility], Sunday-Sunday) * Full Code (Latest Code Status on File) Date Activated Date Inactivated Comments 06/06/2024 12:35 AM Question Answer Comments Code Status Confirmed With: Patient Healthcare Agents on File Name Relationship Healthcare Agent Relationshi p Communication Amari Townsend Spouse Alternate Health care Agent (Proxy form on file) Care Teams Paste Up Copy Camera Operator Relationship Specialty Start Date End Date Bob Camp MD [address] [place] [phone] PCP - General Internal Medicine 10/05/23 Additional Source Comments The information contained in this document represents components of the legal health record. It is not the complete legal health record.[facility]
--- OUTSIDE RECORDS SUMMARY | 2025-06-17 15:11 | XMS_ITS | Encounter Summary ---
Author Organization [facility] Address [address] [place] [address] Phone Care Team Providers Care Utility Bill Collection Clerk Name Role Phone Bob Camp MD Primary Care Provid er Encounter Details Date Type Department Care Team (Late st Contact Info) Description 06/09/2024 Procedure Pass [facility] Endoscopy Department [address] [place] [phone] Social History Tobacco Use Types Packs/Day Years [...] documented as of this encounter Care Teams Utility Bill Collection Clerk Relationship Specialty Start Date End Date Bob Camp MD [address] [place] [address] [id number] PCP - General Internal Medicine 10/05/23 documented as of this encounter Additional Source Comments The information contained in this document represents components of the legal health record. It is not the complete legal health record.[facility]
--- OUTSIDE RECORDS SUMMARY | 2025-06-17 15:12 | XMS_ITS | Encounter Summary ---
Author Organization [facility] Address [address] [place] [address] Phone Care Team Providers Care Nursing Teacher Name Role Phone Bob Camp MD Primary Care Provid er Encounter Details Date Type Department Care Team (Late st Contact Info) Description 05/02/2024 Procedure Pass [facility] Scan - [address] [address] Social History Tobacco Use Types Packs/Day Years Used Date Smoking Tobacco: Never Smokeless Tobacco: Never Alcohol Use Standard Drinks/Week Comments Never 0 (1 standard drink = 0.6 oz pur e alcohol) Home Health Assessment: Transportation Answer Date Recorded Lack of Transportation (Medical) No 04/30/2024 Lack of Transportation (Non-Medical) No 04/30/2024 Patient Unable or Declines to Respond No 04/30/2024 Education Answer Date Recorded Are you interested [...] computer) with a working camera? Yes 04/26/2024 Comments Unknown Sex and Gender Information Value Date Recorded Sex Assigned at Female 04/08/2024 11:21 AM EDT Legal Sex Female 5:09 PM EST Gender Identity Not on file Sexual Orientation Straight 04/08/2024 11 :21 AM EDT documented as of this encounter Functional Status * Calculated C-SSRS Risk Score (Lifetime/Recent) Answer Date of Assessment Author No Risk Indicated 05/03/2024 11:00 PM EDT Jasen Sandoval RN * [place] Suicide Severity Rating Scale (Screener/Recent Self-Report) Question Answer Date of Assessment Author 1. Wish to be (Past 1 Month) No 05/03/2024 11:00 PM EDT Gina Interiano RN 2. Non-Specific Active Suicidal Thoughts (Past 1 Month) No 05/03/2024 11:00 PM EDT Gina Interiano RN 6. 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 It is not the complete legal health record.[facility]
--- OUTSIDE RECORDS SUMMARY | 2025-06-17 15:12 | XMS_ITS | Encounter Summary ---
Author Organization [facility] Address [address] [place] [address] Phone Care Team Providers Care Television Specialist Name Role Phone Bob Camp MD Primary Care Provid er Encounter Details Date Type Department Care Team (Late st Contact Info) Description 04/09/2024 Procedure Pass [facility] Periop [address] [place] [address] Social History Tobacco Use Types Packs/Day Years [...] documented as of this encounter Care Teams Television Specialist Relationship Specialty Start Date End Date Bob Camp MD [address] [place] [phone] PCP - General Internal Medicine 10/05/23 documented as of this encounter Additional Source Comments The information contained in this document represents components of the legal health record. It is not the complete legal health record.[facility]
[2025-06-26] VITALS (19 sets, daily range): BP systolic 92–124; BP diastolic 51–83; PULSE 75–98; RESP 14–19; TEMP 36.3–37.1; O2SAT 98–100; BMI 23.6; BMI 22.4
--- NOTE | ~2025-06-26 | IR_ITS ---
CLINICAL HISTORY: Right-sided breast cancer. The patient presents to interventional radiology for placement of a port for chemotherapy. PROCEDURES: 1. Real-time ultrasound-guided access into the left internal jugular vein after documentation of selected vessel patency, and permanent image storing in the patient records. 2. Placement of a 6.6 Iraqi single-lumen port. CLINICIAN: Neal Luis NP MEDICATIONS: - Versed , Fentanyl , Lidocaine 1% SQ -Antibiotics: Vancomycin 1000 mg -For additional details, please see nursing flowsheet. Complications: None. Estimated blood loss: <5 ml Specimens: None. Contrast: None. Fluoroscopy time: 0.3 min MODERATE SEDATION TIME: 37 min PROCEDURE NOTE: The procedure, risks, benefits, and alternatives were carefully explained to the patient and written informed consent was obtained. The patient was placed supine on the fluoroscopy table. A timeout was performed. The left neck and chest was prepped and draped in usual sterile fashion. Maximum barrier technique was utilized. Local anesthesia was administered to the access site with 1% lidocaine. Under ultrasound guidance, the left internal jugular vein was accessed with a 5 fr micropuncture set. A 0.035 in wire was advanced into the IVC. A peel-away sheath was advanced over the wire and into the SVC, and the wire was removed. Next, subcutaneous lidocaine was administered to the chest. The port pocket was created after the skin incision, utilizing blunt dissection. Using blunt dissection, a subcutaneous tunnel was created that connects from the port pocket to the venotomy site. Through the peel-away sheath, the 6.6 Iraqi port catheter was placed. The catheter position was verified with fluoroscopy to be at the superior vena cava/right atrial junction. The port was connected to the catheter and was placed in the pocket. The port incision site was closed with interrupted 3-0 Vicryl subcutaneous sutures and surgical glue. Prior to closing the skin, 500 mg of vancomycin solution was placed in the pocket. The port was tested, flushed, and packed with heparin per routine protocol. The patient tolerated the procedure well. The patient was stable after the procedure and was transferred to the PACU. The procedure was performed under moderate sedation and with a dedicated nurse with continuous monitoring of vital signs. A permanent image of the ultrasound the neck and fluoroscopic image of the chest was saved and sent to PACS. FINDINGS: 1. Patent left internal jugular vein 2. Placement of a 6.6 Iraqi single lumen port. 3. Port flushes and aspirates very well with a 10 mL syringe. No pneumothorax. IR/IR cvc insert tunnel w prt/car parker IMPRESSION: Placement of a 6.6 Iraqi single-lumen port. PLAN: - The patient will be discharged home when stable by sedation protocol. - Port may be used immediately. This procedure was performed by Neal Luis NP and directly supervised by Omid Garner M.D. Electronically signed by: Omid Garner MD 07/02/2025 05:52 PM EDT RP Workstation: [id number]
[2025-06-26 12:17] LABS: MANUAL DIFF FLAG NO
[2025-06-26 12:20] LABS: Hematocrit 37.1 % (37.0-47.0); Hemoglobin 12.7 g/dl (12.0-16.0); Imm Gran Abs Auto 0.03 X10*3/uL (0.00-0.03); Imm Gran Pct Auto 0.3 % (0.0-0.4); Lymphocytes Absolute Auto 2.0 X10*3/uL (1.2-4.9); Mean Corpuscular HGB Conc 34.2 g/dl (31.0-35.0); Mean Corpuscular Hemoglobin 30.8 pg (27.0-33.0); Mean Corpuscular Volume 90.0 fL (80.0-98.0); NRBC Abs Auto 0.000 X10*3/uL (0.0-0.012); NRBC Pct Auto 0.0 /100WBC (0.0-0.2); Platelet Count 287 X10*3/uL (160-400); Red Blood Count 4.12 X10*6/uL (4.20-5.50); White Blood Count 9.7 X10*3/uL (4.8-10.8)
[2025-06-26 12:28] LABS: INTERNATIONAL NORM RATIO 1.0 (0.9-1.1); Prothrombin Time 11.4 SEC (10.9-12.4)
[2025-06-26 12:34] LABS: Anion Gap 13 (12-20); Blood Urea Nitrogen 24 mg/dL (9-16); Calcium 9.2 mg/dL (8.4-10.2); Carbon Dioxide 19 mmol/L (22-29); Chloride 114 mmol/L (96-108); Creatinine Clr Calc Pharmacy 59.5; Estimated Glomerular Filt Rate > 60; Potassium 2.7 mmol/L (3.3-5.1); Sodium 143 mmol/L (135-145)
--- NOTE | 2025-06-26 12:55 | PC.NURSE ---
PATIENT POTASSIUM IS 2.7 CRITICAL RESULT. VIVI ROSE WAS THE ORDERING PHYSICIAN. STATED OK TO PROCEED WITH THE PROCEDURE FOR PORTACATH INSERTION. HOLLANDLea MEZA AWARE WELL. VIVI ROSE STATES ITS OKAY FOR HER TO GO HOME AFTER THE PROCEDURE AND PICKUP HER PRESCRIPTION FOR POTASSIUM REPLACEMENT IN LIQUID FORM LONG SHE IS FEELING WELL. PRESCRIPTION SENT TO [facility]. VERIFIED WITH THE PATIENT. PRESCRIPTION SENT LIQUID FORM DUE TO PATIENT STATING SHE CANT SWALLOW PILLS. DUE TO A RECENT UPPER ENDOSCOPY WITH DILATION.PATIENT AWARE OF THE PLAN.
== END ==
LOC: HO.SSS 10:59
DX: Z45.2 Encounter for adjustment and management of vascular access device (principal); C16.9 Malignant neoplasm of stomach, unspecified; C50.911 Malignant neoplasm of unspecified site of right female breast; G40.909 Epilepsy, unspecified, not intractable, without status epilepticus; I48.0 Paroxysmal atrial fibrillation; E87.6 Hypokalemia; E78.00 Pure hypercholesterolemia, unspecified; E03.9 Hypothyroidism, unspecified; Z85.038 Personal history of other malignant neoplasm of large intestine; Z90.49 Acquired absence of other specified parts of digestive tract; J44.9 Chronic obstructive pulmonary disease, unspecified; Z86.711 Personal history of pulmonary embolism; K52.9 Noninfective gastroenteritis and colitis, unspecified; K90.9 Intestinal malabsorption, unspecified; Z79.01 Long term (current) use of 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; Z79.51 Long term (current) use of inhaled steroids; Z79.899 Other long term (current) drug therapy; Z88.0 Allergy status to penicillin; Z88.1 Allergy status to other antibiotic agents; Z88.2 Allergy status to sulfonamides; Z88.8 Allergy status to other drugs, medicaments and biological substances
CPT/HCPCS: 36415; 36561; 76937; 80048; 85025; 85610; 99152; 99153; C1769; C1788; J1100; J1171; J1200; J1308; J1642; J1644; J2003; J2250; J3010; J3374

== ENCOUNTER → 2025-06-26 12:45 | Outpatient (BNV) | payer OTHER, SELFPAY | DX: Z45.2 Encounter for adjustment and management of vascular access device (principal) | CPT/HCPCS: 36561; 76937; 77001 ==

== ENCOUNTER 2025-06-26 17:01 | Emergency (ER) | payer OTHER, SELFPAY ==
--- NOTE | 2025-06-26 17:23 | ED.ALLEREA ---
HPI - Allergic Reaction General Chief complaint: Allergic Reaction Stated complaint: allergic reaction Time Seen by Provider: 06/26/25 17:04 History of Present Illness HPI narrative: Patient is a 69-year-old female with a history of cancer getting a chemo port placed. Was given a dose of vancomycin afterwards. Then developed shortness of breath and also question redness. Patient was given Decadron Benadryl Pepcid and sent from the IR to the ED. Related Data Home Medications ?Medication ?Instructions ?Recorded ?Confirmed magnesium oxide 400 mg (241.3 mg 1 tab PO BID 01/07/22 06/26/25 magnesium) tablet omeprazole 40 mg capsule,delayed 40 mg PO DAILY 01/16/25 06/26/25 release midodrine 5 mg tablet 10 mg PO QID 03/26/25 06/26/25 Previous Rx's ?Medication ?Instructions ?Recorded cane #1 ea 08/31/23 colostomy bags #5 ea 02/28/24 colostomy supplies #1 ea 02/28/24 simvastatin 40 mg tablet 40 mg PO BEDTIME #90 tabs 07/25/24 Advair HFA 115 mcg-21 2 puff inhalation Q12H #12 grams 09/20/24 mcg/actuation aerosol inhaler (fluticasone propion-salmeterol) Symbicort 80 mcg-4.5 mcg/actuation 2 puff inhalation BID #10.2 grams 09/20/24 HFA aerosol inhaler (budesonide-formoterol) albuterol sulfate 90 mcg/actuation 2 puff inhalation Q6H PRN 09/20/24 aerosol inhaler bronchospasm #18 grams cholestyramine (with sugar) 4 gram 4 g PO BID 30 days #60 ea 09/20/24 powder for susp in a packet cyanocobalamin (vitamin B-12) 3,000 mcg PO DAILY 90 days #90 caps 09/20/24 3,000 mcg capsule ferrous sulfate 325 mg (65 mg 325 mg PO DAILY #90 tabs 09/20/24 iron) tablet loratadine 10 mg tablet 10 mg PO DAILY #90 tabs 09/20/24 swnmtcsl-vud-wekrz acid 0.4 1 tab PO DAILY #30 tabs 09/20/24 mg-lycopene 300 mcg-lutein 250 mcg tablet (CertaVite Senior) levothyroxine 50 mcg tablet 50 mcg PO DAILY #90 tabs 09/26/24 thiamine HCl (vitamin B1) 100 mg 100 mg PO DAILY #30 tabs 10/03/24 tablet (Vitamin B-1) amitriptyline 25 mg tablet 25 mg PO BEDTIME 30 days #30 tabs 10/08/24 duloxetine 60 mg capsule,delayed 60 mg PO DAILY 90 days #90 caps 11/10/24 release trazodone 50 mg tablet 50 mg PO BEDTIME #90 tabs 12/05/24 loperamide 2 mg capsule (Imodium 2 mg PO Q6H PRN loose stool #14 12/24/24 A-D) caps food supplemt, lactose-reduced 1 ea PO QID #5,688 mL 03/26/25 0.04 gram-1 kcal/mL oral liquid (Boost) baclofen 5 mg tablet 5 mg PO BEDTIME #30 tabs 06/25/25 fludrocortisone 0.1 mg tablet 0.1 mg PO DAILY #90 tabs 06/25/25 apixaban 5 mg tablet (Eliquis) 5 mg PO BID 90 days #180 tabs 06/26/25 diphenhydramine HCl 25 mg capsule 25 mg PO Q8H 5 days #15 caps 06/26/25 (Benadryl) famotidine 20 mg tablet (Pepcid) 20 mg PO BID 5 days #10 tabs 06/26/25 levetiracetam 750 mg tablet 750 mg PO BID 30 days #60 tabs 06/26/25 pantoprazole 40 mg tablet,delayed 40 mg PO DAILY #30 tabs 06/26/25 release potassium chloride 20 mEq/15 mL 20 meq (15 mL) PO BID #150 mL 06/26/25 oral liquid prednisone 20 mg tablet 40 mg (2 x 20 mg) PO DAILY #10 tabs 06/26/25 Allergies Allergy/AdvReac Type Severity Reaction Status Date / Time erythromycin base Allergy Severe Anaphylaxis Verified 06/26/25 17:30 (ERYTHROMYCIN BASE) levofloxacin (From Levaquin) Allergy Severe Anaphylaxis Verified 06/26/25 17:30 Penicillins (PCN) Allergy Severe Anaphylaxis Verified 06/26/25 17:30 seafood Allergy Severe Anaphylaxis Verified 06/26/25 17:30 Sulfa (Sulfonamide Allergy Severe Anaphylaxis, Verified 06/26/25 17:30 Antibiotics) (SULFA vomiting (SULFONAMIDE ANTIBIOTICS)) Tetracyclines Allergy Severe Anaphylaxis Verified 06/26/25 17:30 gabapentin Allergy Intermediate Hives Verified 06/26/25 17:30 pregabalin (From Lyrica) Allergy Intermediate Hives Verified 06/26/25 17:30 vancomycin Allergy Intermediate rash, Verified 06/26/25 17:30 redness, itchiness, anxiety divalproex sodium (Depakote) Allergy Unknown altered Verified 06/26/25 17:30 mental status gluten (GLUTEN) Allergy Unknown BLOATING,RA Verified 03/26/25 13:41 SH rice Allergy Unknown Verified 03/26/25 13:41 Review of Systems Review of Systems: No fever no chills no chest pain positive redness positive mild shortness of breath Yes all other systems are reviewed and are negative [facility] Past Medical History Attestation statement: The following information was validated with the patient. Medical History Paroxysmal A-fib Orthostatic hypotension History of small bowel obstruction Hospital discharge follow-up History of colon cancer History of gastric cancer History of pulmonary embolus (PE) Acute suprapubic pain Neurogenic bladder, NOS COVID-19 Primary cancer of foot Pulmonary embolism Degenerative cervical disc Lumbar disc disease Celiac disease Pure hypercholesterolemia Epilepsy Hypothyroidism COPD (chronic obstructive pulmonary disease) Pseudoseizure Conversion disorder Colon cancer Allergy to multiple drugs Deep vein thrombosis Surgical History History of urostomy History of endoscopy History of esophagogastroduodenoscopy (EGD) History of arthroplasty History of hysterectomy (~1979) Hx of cholecystectomy S/P IVC filter History of partial surgical removal of colon History of partial gastrectomy History of colectomy History of colostomy reversal History of bladder surgery History of sinus surgery History of facial surgery History of colonoscopy (~06/12/24) Family History Family History Mother CAD (coronary artery disease) Other Mental health disorder Social History Social History Household Members: None Household Members Other:: 1 Housing: Apartment Do you presently have visiting nurse or other home services: Yes Alcohol intake: former Patient Tobacco Use Status: Never used Tobacco Smoked in Last 30 Days: No e-Cigarette/Vaping Use: Never Used Second Hand Smoke Exposure: Yes Use of substances other than those prescribed or required for medical reasons: No Advance Directives: Yes Advance Directives on File: Yes Advance Directives Date on File: 08/08/23 service: No Current occupational status: disabled Cognitive needs: Yes (cane) Hearing needs: No Vision needs: Yes (Glasses) Physical Exam ED Exam Exam: Appearance: Alert. Oriented X3. No acute distress. Eyes: Pupils equal, round and reactive to light. ENT: Pharynx normal. Neck: Normal inspection. Neck supple. No lymph nodes noted. No crepitus CVS: Normal heart rate and rhythm. Pulses normal. Normal S1 and S2. The port site appears normal. No redness no discharge no bleeding Respiratory: No respiratory distress. Breath sounds normal. No Wheezing. No rales Abdomen: Soft and nontender. No rigidity. No distention. good BS x4 Skin: Skin warm and dry. Normal skin color. Normal skin turgor. Extremities: No lower extremity edema. Neurovascular intact to all extremities. No Lacerations. No Rash Neuro: Oriented X 3. No motor deficit. No sensory deficit. Moving all extermities. No slurred speech Vital Signs: Vital Signs - 24 hr 06/26/25 17:24 06/26/25 18:24 06/26/25 22:01 Temperature 97.4 F 97.1 F Pulse Rate 88 85 82 Respiratory Rate 16 15 19 Blood Pressure 137/80 104/67 90/54 L Pulse Oximetry 99 99 100 Oxygen Delivery Method Room Air Room Air Room Air 06/26/25 23:03 Temperature Pulse Rate 91 Respiratory Rate 15 Blood Pressure 107/61 Pulse Oximetry 98 Oxygen Delivery Method Room Air BMI result Body Mass Index 21.7 Medications Administered Generic Name Dose Route Start Last Admin Trade Name Freq PRN Reason Stop Dose Admin Sodium Chloride 1,000 mls @ 999 mls/hr 06/26/25 22:15 06/26/25 22:21 Ns IV 06/26/25 23:15 999 mls/hr .Q1H1M MAISHA Administration Discontinued Medications Generic Name Dose Route Start Last Admin Trade Name Freq PRN Reason Stop Dose Admin Hydromorphone HCl 0.5 mg 06/26/25 18:54 06/26/25 19:06 Hydromorphone Hcl 0.5 Mg/0.5 Ml Syringe IVPUSH 06/26/25 18:55 0.5 mg ONCE ONE Administration Protocol Potassium Chloride 10 meq in 100 mls @ 100 mls/hr 06/26/25 19:09 06/26/25 21:08 Potassium Chloride/H20 IV 06/26/25 20:08 Infused ONCE ONE Infusion Magnesium Sulfate 2 gm in 50 mls @ 150 mls/hr 06/26/25 19:48 06/26/25 21:58 Magnesium Sulfate/H2o IV 06/26/25 20:07 Infused ONCE ONE Infusion Potassium Chloride 40 meq 06/26/25 19:09 06/26/25 19:53 Potassium Chloride Packet 20 Meq Packet PO 06/26/25 19:10 40 meq ONCE ONE Administration Medical Decision Making Medical Decision Making MDM Narrative: Will contact IR and monitor. Currently patient in no distress. Discussed with IR felt if patient's symptoms dramatically improved can be discharged home I monitored the patient emerged in the emergency department for 4-5 hours. Patient's symptoms from Allergy has completely resolved blood pressure is 105/70. Patient is a very petite lady only 52 kilos. In no distress heart rate is normal. Patient's wants to go home. Will discharge. Patient electrolyte was repleted. Her magnesium was 1.5 her K was 2.7 repeat electrolytes showed normal potassium normal magnesium will discharge patient home close follow-up advised. Differential Diagnosis Differential Diagnoses: The differential diagnosis associated with the presentation includes Electrolyte disturbance, allergic reaction, anaphylaxis Admission/Observation Consideration of admission/observation: Escalation of care including admission/observation considered Consult Healthcare Provider Management of the patient was discussed with: Lead Systems Engineer (IR) Lab Data [facility] Lab Attestation statement: I reviewed the patient's lab results. 06/26/25 18:36 06/26/25 22:19 Labs: Lab Results 06/26/25 06/26/25 Range/Units 18:36 22:19 WBC 11.3 H (4.8-10.8) X10*3/uL RBC 3.68 L (4.20-5.50) X10*6/uL Hgb 11.4 L (12.0-16.0) g/dl Hct 32.4 L (37.0-47.0) % MCV 88.0 (80.0-98.0) fL MCH 31.0 (27.0-33.0) pg MCHC 35.2 H (31.0-35.0) g/dl RDW 15.3 (11.0-16.0) % Plt Count 276 (160-400) X10*3/uL MPV 9.2 L (9.4-12.3) fL Immature Gran % (Auto) 0.3 (0.0-0.4) % Neut % (Auto) 90.4 H (45-73) % Lymph % (Auto) 6.2 L (20-40) % Isabela % (Auto) 2.6 (2-11) % Eos % (Auto) 0.2 (0-4) % Baso % (Auto) 0.3 (0-2) % Lymph # (Auto) 0.7 L (1.2-4.9) X10*3/uL Isabel[place] # (Auto) 0.3 (0.1-1.2) X10*3/uL Eos # (Auto) 0.0 (0.0-0.4) X10*3/uL Baso # (Auto) 0.0 (0.0-0.2) X10*3/uL Abs Immat Gran (auto) 0.03 (0.00-0.03) X10*3/uL Absolute Neuts (auto) 10.3 H (2.0-8.3) x10*3/uL Absolute Nucleated RBC 0.000 (0.0-0.012) X10*3/uL Nucleated RBC % (auto) 0.0 (0.0-0.2) /100WBC Smear Tech's Comments VERIFIED Sodium 141 136 (135-145) mmol/L Potassium 2.7 L* 3.6 D (3.3-5.1) mmol/L Chloride 116 H 113 H (96-108) mmol/L Carbon Dioxide 17 L 15 L (22-29) mmol/L Anion Gap 11 L 12 (12-20) BUN 25 H 24 H (9-16) mg/dL Creatinine 0.54 0.74 (0.5-1.4) mg/dL Estim Creat Clear Calc 75.2 54.8 Estimated GFR > 60 > 60 Random Glucose 94 272 H (60-115) mg/dL Calcium 8.5 D 8.3 L (8.4-10.2) mg/dL Magnesium 1.5 L 2.5 (1.6-2.6) mg/dL External Record Review External record reviewed: Inpatient record Social Determinants Patient?s care significantly limited by Social Determinants of Health including: Problems related to primary support group Discharge Plan Discharge Clinical Impression: Acute hypokalemia, Hypomagnesemia, Allergic reaction Patient Disposition: Home, Self-Care Instructions: Potassium Content of Foods List (ED), Hypokalemia (ED), Antibiotic Medication Allergy (DC), Hypomagnesemia (ED) Prescriptions: New prednisone 20 mg tablet 40 mg PO DAILY Qty: 10 0RF famotidine [Pepcid] 20 mg tablet 20 mg PO BID 5 Days Qty: 10 0RF diphenhydramine HCl [Benadryl] 25 mg capsule 25 mg PO Q8H 5 Days Qty: 15 0RF No Action (DME) cane Device See Rx Instructions .Route Qty: 1 0RF Rx Instructions: As directed simvastatin 40 mg tablet 40 mg PO BEDTIME Qty: 90 1RF fluticasone propion-salmeterol [Advair HFA] 115-21 mcg/actuation HFA aerosol inhaler 2 puff inhalation Q12H Qty: 12 3RF albuterol sulfate 90 mcg/actuation HFA aerosol inhaler 2 puff inhalation Q6H PRN (Reason: bronchospasm) Qty: 18 0RF cholestyramine (with sugar) 4 gram powder in packet 4 g PO BID 30 Days Qty: 60 3RF Rx Instructions: administer w/meal; avoid other meds within 1hr before or 4-6hr after dose cyanocobalamin (vitamin B-12) 3,000 mcg capsule 3,000 mcg PO DAILY 90 Days Qty: 90 0RF ferrous sulfate 325 mg (65 mg iron) tablet 325 mg PO DAILY Qty: 90 0RF loratadine 10 mg tablet 10 mg PO DAILY Qty: 90 1RF CertaVite Senior 0.4 mg-300 mcg- 250 mcg tablet 1 tab PO DAILY Qty: 30 5RF budesonide-formoterol [Symbicort] 80-4.5 mcg/actuation HFA aerosol inhaler 2 puff INHALATION BID Qty: 10.2 0RF levothyroxine 50 mcg tablet 50 mcg PO DAILY Qty: 90 1RF thiamine HCl (vitamin B1) [Vitamin B-1] 100 mg tablet 100 mg PO DAILY Qty: 30 4RF duloxetine 60 mg capsule,delayed release(DR/EC) 60 mg PO DAILY 90 Days Qty: 90 0RF fludrocortisone 0.1 mg tablet 0.1 mg PO DAILY Qty: 90 1RF baclofen 5 mg tablet 5 mg PO BEDTIME Qty: 30 0RF potassium chloride 20 mEq/15 mL liquid 20 meq PO BID Qty: 150 0RF pantoprazole 40 mg tablet,delayed release (DR/EC) 40 mg PO DAILY Qty: 30 2RF Eliquis 5 mg tablet 5 mg PO BID 90 Days Qty: 180 3RF levetiracetam 750 mg tablet 750 mg PO BID 30 Days Qty: 60 3RF magnesium oxide 400 mg (241.3 mg magnesium) tablet 1 tab PO BID (DME) colostomy bags Misc See Rx Instructions .Route Qty: 5 5RF Rx Instructions: As directed (DME) colostomy supplies See Rx Instructions .Route .MEDSUPPLY Qty: 1 11RF Rx Instructions: As directed amitriptyline 25 mg tablet 25 mg PO BEDTIME 30 Days Qty: 30 0RF Boost 0.04 gram- 1 kcal/mL liquid 1 ea PO QID Qty: 5688 3RF trazodone 50 mg tablet 50 mg PO BEDTIME Qty: 90 1RF loperamide [Imodium A-D] 2 mg capsule 2 mg PO Q6H PRN (Reason: loose stool) Qty: 14 0RF midodrine 5 mg tablet 10 mg PO QID omeprazole 40 mg capsule,delayed release(DR/EC) 40 mg PO DAILY Referrals: Era Erazo PA-C [Primary Care Provider, Internal Medicine] - 2 days Print Language: Danish
[2025-06-26 17:24] VITALS: BP 137/80; PULSE 88; RESP 16; TEMP 36.3; O2SAT 99; BMI 21.7
--- OUTSIDE RECORDS SUMMARY | 2025-06-26 18:04 | XMS_ITS | Encounter Summary ---
Author Organization [facility] Address [address] [place] [phone] Phone Care Team Providers Care Web Developer Programmer Name Role Phone Bob Camp MD Primary Care Provid er Encounter Details Date Type Department Care Team (Late st Contact Info) Description 05/02/2024 Procedure Pass [facility], Ct Scan - [address] [id number] Social History Tobacco Use Types Packs/Day Years [...] 11:00 PM EDT Jasen Sandoval RN * [place] Suicide Severity Rating Scale (Screener/Recent Self-Report) Question [...] documented as of this encounter Care Teams Web Developer Programmer Relationship Specialty Start Date End Date Bob Camp MD [address] [place] [phone] PCP - General Internal Medicine 10/05/23 documented as of this encounter Additional Source Comments The information contained in this document represents components of the legal health record. It is not the complete legal health record.[facility]
--- OUTSIDE RECORDS SUMMARY | 2025-06-26 18:04 | XMS_ITS | Encounter Summary ---
Author Organization [facility] Address [address] [place] [address] Phone Care Team Providers Care Toy Mechanic Name Role Phone Bob Camp MD Primary Care Provid er Encounter Details Date Type Department Care Team (Late st Contact Info) Description 06/12/2024 Procedure Pass [facility] Endoscopy Department [address] [place] [phone] Social History Tobacco Use Types Packs/Day Years [...] documented as of this encounter Care Teams Toy Mechanic Relationship Specialty Start Date End Date Bob Camp MD [address] [place] [id number] PCP - General Internal Medicine 10/05/23 documented as of this encounter Additional Source Comments The information contained in this document represents components of the legal health record. It is not the complete legal health record.[facility]
--- OUTSIDE RECORDS SUMMARY | 2025-06-26 18:04 | XMS_ITS | Encounter Summary ---
Author Organization [facility] Address [address] [place] [address] Phone Care Team Providers Care Rectangular Tank Cooper Name Role Phone Bob Camp MD Primary Care Provid er Encounter Details Date Type Department Care Team (Late st Contact Info) Description 06/09/2024 Procedure Pass [facility] Endoscopy Department [address] [place] [phone] Social History Tobacco Use Types Packs/Day Years [...] documented as of this encounter Care Teams Rectangular Tank Cooper Relationship Specialty Start Date End Date Bob Camp MD [address] [place] [address] [phone] PCP - General Internal Medicine 10/05/23 documented as of this encounter Additional Source Comments The information contained in this document represents components of the legal health record. It is not the complete legal health record.[facility]
--- OUTSIDE RECORDS SUMMARY | 2025-06-26 18:04 | XMS_ITS | Encounter Summary ---
Author Organization [facility] Address [address] [place] [phone] Phone Care Team Providers Care Engineering Model Maker Name Role Phone Bob Camp MD Primary Care Provid er Encounter Details Date Type Department Care Team (Late st Contact Info) Description 06/06/2024 Procedure Pass [facility]'s Radiology [address] [place] [address] Social History Tobacco Use Types Packs/Day Years [...] 12:52 AM EDT Elisabeth Aguilar RN * [place] Suicide Severity Rating Scale (Screener/Recent Self-Report) Question [...] documented as of this encounter Care Teams Engineering Model Maker Relationship Specialty Start Date End Date Bob Camp MD [address] [place] [phone] PCP - General Internal Medicine 10/05/23 documented as of this encounter Additional Source Comments The information contained in this document represents components of the legal health record. It is not the complete legal health record.[facility]
--- OUTSIDE RECORDS SUMMARY | 2025-06-26 18:04 | XMS_ITS | Encounter Summary ---
Author Organization [facility] Address [address] [place] [phone] Phone Care Team Providers Care Chief Of Staff Name Role Phone Bob Camp MD Primary Care Provid er Encounter Details Date Type Department Care Team (Late st Contact Info) Description 06/12/2024 Procedure Pass [facility] and [facility]'s Radiology [address] [place] [address] Social History Tobacco Use Types Packs/Day Years [...] documented as of this encounter Care Teams Chief Of Staff Relationship Specialty Start Date End Date Bob Camp MD NPI: [id number] [place] [id number] PCP - General Internal Medicine 10/05/23 documented as of this encounter Additional Source Comments The information contained in this document represents components of the legal health record. It is not the complete legal health record.[facility]
--- OUTSIDE RECORDS SUMMARY | 2025-06-26 18:04 | XMS_ITS | Encounter Summary ---
Author Organization [facility] Address [address] [place] [address] Phone Care Team Providers Care Manager Personal Name Role Phone Bob Camp MD Primary Care Provid er Encounter Details Date Type Department Care Team (Late st Contact Info) Description 04/15/2024 Procedure Pass [facility] and [facility]'s Radiology [address] [place] [address] Social History Tobacco Use Types Packs/Day Years [...] documented as of this encounter Care Teams Manager Personal Relationship Specialty Start Date End Date Bob Camp MD [address] [place] [phone] PCP - General Internal Medicine 10/05/23 documented as of this encounter Additional Source Comments The information contained in this document represents components of the legal health record. It is not the complete legal health record.[facility]
--- OUTSIDE RECORDS SUMMARY | 2025-06-26 18:04 | XMS_ITS | Encounter Summary ---
Author Organization [facility] Address [address] [place] [address] Phone Care Team Providers Care Erecting Crane Operator Name Role Phone Bob Camp MD Primary Care Provid er Encounter Details Date Type Department Care Team (Late st Contact Info) Description 04/09/[address] [facility] Periop [address] [place] [address] Social History Tobacco Use Types Packs/Day Years [...] documented as of this encounter Care Teams Erecting Crane Operator Relationship Specialty Start Date End Date Bob Camp MD [address] [place] [phone] PCP - General Internal Medicine 10/05/23 documented as of this encounter Additional Source Comments The information contained in this document represents components of the legal health record. It is not the complete legal health record.[facility]
--- OUTSIDE RECORDS SUMMARY | 2025-06-26 18:04 | XMS_ITS | Encounter Summary ---
Author Organization [facility] Address [address] [place] [address] Phone Care Team Providers Care Revenue Liaison Name Role Phone Bob Camp MD Primary Care Provid er Encounter Details Date Type Department Care Team (Late st Contact Info) Description 04/09/2024 Procedure Pass [facility] Periop [address] [place] [address] Social History Tobacco Use Types Packs/Day Years [...] documented as of this encounter Care Teams Revenue Liaison Relationship Specialty Start Date End Date Bob Camp MD [address] [place] [phone] PCP - General Internal Medicine 10/05/23 documented as of this encounter Additional Source Comments The information contained in this document represents components of the legal health record. It is not the complete legal health record.[facility]
--- OUTSIDE RECORDS SUMMARY | 2025-06-26 18:04 | XMS_ITS | Clinical Summary ---
Author Organization [facility] Address [address] [facility] [address] [place] [address] Phone Care Team Providers Care Materials Branch Chief Name Role Phone Bob Camp MD Primary [...] Active ferrous sulfate 324 mg (65 mg shishmaref ira iron) TbEC Take 1 tablet (324 mg [...] this topic Medical Devices Implanted Type Area Delivery Table Feeder Device Identifier Shelf Expiration Date Model / Serial / Lot Pin Pin Cheek Stent Diversion 7fr 90cm X2 Ureteral Single J Guidewire Ptfe .028 120cm Silicone - [id number] Implanted:Qty: 1 on 04/09/2024 by Bg Castillo MD at [facility] Ureteral Stent N/A: Ureter OLYMPUS JOHN 02/19/2029 [id number] / / [id number] Ivc Filter-12/25/2021 Implanted: 2 by Jim Temple MD (Quantity not on file) Interactive Project Description:List Rec#[id number] Object Description OptionELITE Retrievable Vena Cava Filter [employer], [email or web address] Strength3 Object StatusConditional 6 Safety Topic / SubjectCoils, Filters, Stents, and Grafts Mesh Surgical [id number] Phasix St Pocketed Bioresorbable Open Positioning System Oval - [id number] Implanted:Qty: 1 on 04/09/2024 by Pedro Pablo Campa MD at [facility] N/A: Abdomen [employer] [id number] 09/20/2025 [id number] / / [id number] Procedures Procedure Name Priority Date/Time Associated Diagnosis Comments BASIC METABOLIC PANEL Routine 06/13/2024 5:30 AM EDT ENDOSCOPY, COLON 06/12/2024 12:2 9 PM EDT from Last 3 Months or Most Recently Relevant to Health Maintenance Results * (ABNORMAL) Basic metabolic panel (06/13/2024 5:30 AM EDT) SODIUM 141 136 - 145 mmol/L [facility] POTASSIUM 3.8 3.4 - 5.1 mmol/L [facility] CHLORIDE 104 98 - 107 mmol/L [facility] CO2 28 22 - 31 mmol/L [facility] BUN 8 6 - 23 mg/dL [facility] CREATININE 0.51 0.50 - 1.20 mg/dL [facility] GLUCOSE 96 70 - 100 mg/dL [facility] CALCIUM 8.4(L) 8.8 - 10.7 mg/dL [facility] EGFR 102 >59 mL/min/1.7 3m2 [facility] Comment:Estimated glomerular filtration rate calculated using the CKD-EPI refit equation. ANION GAP 9 7 - 17 mmol/L [facility] Blood 06/13/2024 5:30 AM EDT 06/13/2024 6:09 AM EDT us Jaden Ponce PA-C LAB BLOOD ORDERABLES Fin al Result Performing Organization Address City/State/[facility] Co de Phone Number [facility] [address] [place] [address] * ENDOSCOPY, COLON (06/12/2024 12:29 PM EDT) 06/12/2024 12:2 9 PM EDT Narrative Transcriptions Epifanio Seaman MD, MPH - 06/12/2024 12:29 PM EDT [facility] Gastroenterology Patient Name: Christi Donald Procedure Date: 06/12/2024 12:29 PM Date of : 1955 Admit Type: Inpatient Age: 68 Room: 2 Gender: Female Note Status: Finalized Attending MD: EPIFANIO SEAMAN MD [id number] Procedure: Colonoscopy Indications: Screening for colorectal malignant neoplasm (last colonoscopy was more than 10 years ago) Providers: EPIFANIO SEAMAN MD [id number], Enrique Dong Referring MD: Santana Sierra MD [...] prior to the procedure. - See the [facility] pre-procedure note for documentation of the pre-procedure [...] heparin in 6 hours Epifanio Seaman MD [id number] EPIFANIO SEAMAN MD [id number] 06/12/2024 1:06:08 PM This report has been [...] Advance Directives For more information, please contact: [phone] (9AM - 5PM [facility], Sunday-Sunday) * Full Code (Latest Code Status on File) Date Activated Date Inactivated Comments 06/06/2024 12:35 AM Question Answer Comments Code Status Confirmed With: Patient Healthcare Agents on File Name Relationship Healthcare Agent Relationshi p Communication Amari Townsend Spouse Alternate Health care Agent (Proxy form on file) Care Teams Materials Branch Chief Relationship Specialty Start Date End Date Bob Camp MD [address] [place] [id number] PCP - General Internal Medicine 10/05/23 Additional Source Comments The information contained in this document represents components of the legal health record. It is not the complete legal health record.[facility]
[2025-06-26 18:24] VITALS: BP 104/67; PULSE 85; RESP 15; TEMP 36.2; O2SAT 99
[2025-06-26 19:01] LABS: Hematocrit 32.4 % (37.0-47.0); Hemoglobin 11.4 g/dl (12.0-16.0); Imm Gran Abs Auto 0.03 X10*3/uL (0.00-0.03); Imm Gran Pct Auto 0.3 % (0.0-0.4); Lymphocytes Absolute Auto 0.7 X10*3/uL (1.2-4.9); MANUAL DIFF FLAG SCAN; Mean Corpuscular HGB Conc 35.2 g/dl (31.0-35.0); Mean Corpuscular Hemoglobin 31.0 pg (27.0-33.0); Mean Corpuscular Volume 88.0 fL (80.0-98.0); NRBC Abs Auto 0.000 X10*3/uL (0.0-0.012); NRBC Pct Auto 0.0 /100WBC (0.0-0.2); Platelet Count 276 X10*3/uL (160-400); Red Blood Count 3.68 X10*6/uL (4.20-5.50); SCAN SMEAR FLAG 1; White Blood Count 11.3 X10*3/uL (4.8-10.8)
[2025-06-26 19:09] LABS: Anion Gap 11 (12-20); Blood Urea Nitrogen 25 mg/dL (9-16); Calcium 8.5 mg/dL (8.4-10.2); Carbon Dioxide 17 mmol/L (22-29); Chloride 116 mmol/L (96-108); Creatinine Clr Calc Pharmacy 75.2; Estimated Glomerular Filt Rate > 60; Potassium 2.7 mmol/L (3.3-5.1); Sodium 141 mmol/L (135-145)
[2025-06-26 19:35] LABS: Magnesium 1.5 mg/dL (1.6-2.6)
[2025-06-26] MEDS: Potassium Chloride/H20 10 MEQ/100 ML PIGGYBACK 100 MEQ IV (19:48)
[2025-06-26] MEDS: Potassium Chloride Packet 20 MEQ PACKET 40 MEQ PO (19:53)
[2025-06-26] MEDS: Magnesium Sulfate/H2O 2 GM/50 ML PIGGYBACK IV (21:13)
[2025-06-26 22:01] VITALS: BP 90/54; PULSE 82; RESP 19; O2SAT 100
[2025-06-26 22:42] LABS: Anion Gap 12 (12-20); Blood Urea Nitrogen 24 mg/dL (9-16); Calcium 8.3 mg/dL (8.4-10.2); Carbon Dioxide 15 mmol/L (22-29); Chloride 113 mmol/L (96-108); Creatinine Clr Calc Pharmacy 54.8; Estimated Glomerular Filt Rate > 60; Magnesium 2.5 mg/dL (1.6-2.6); Potassium 3.6 mmol/L (3.3-5.1); Sodium 136 mmol/L (135-145)
--- NOTE | 2025-06-26 22:50 | HO.NURTONUR ---
Pt has extensive hx of CA; throat, stomach, and breast. Pt was at [facility] having por-a-cath placed, was given Vanco and according to report had an allergic reaction and immediately c/o itching and turning red. Pt was medicated in [facility] and brought to ED for further eval. Swelling noted at the site of the port-a-cath, however it was re-assessed by the PA who inserted and no complications noted. L chest port is functional w/ +blood return. Pt was also noted to be hypokalemic and was repleted.
[2025-06-26 23:03] VITALS: BP 107/61; PULSE 91; RESP 15; O2SAT 98
[2025-06-26 23:41] VITALS: BP 107/61; PULSE 91; RESP 15; TEMP 36.8; O2SAT 98
== END 2025-06-26 23:41 | disposition home or self-care (01) ==
PROVIDERS: Emergency Provider Emergency Medicine Emergency Medical Services
DX: E87.6 Hypokalemia (principal); E83.42 Hypomagnesemia; T78.49XA Other allergy, initial encounter; T36.8X5A Adverse effect of other systemic antibiotics, initial encounter; Y92.9 Unspecified place or not applicable; X58.XXXA Exposure to other specified factors, initial encounter; I48.0 Paroxysmal atrial fibrillation; I95.1 Orthostatic hypotension; Z86.711 Personal history of pulmonary embolism; E78.00 Pure hypercholesterolemia, unspecified; K90.0 Celiac disease; G40.909 Epilepsy, unspecified, not intractable, without status epilepticus; E03.9 Hypothyroidism, unspecified; J44.9 Chronic obstructive pulmonary disease, unspecified
CPT/HCPCS: 36415; 80048; 83735; 85025; 96361; 96365; 96367; 96375; 99284; J1171; J3475; J3480

== ENCOUNTER 2025-07-17 15:02 | Outpatient (AMB) | payer OTHER, SELFPAY ==
--- NOTE | 2025-07-17 15:03 | A.OFFPC_ITS ---
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 Required: No Accompanied by: Self / Same As Patient Allergies erythromycin base (ERYTHROMYCIN BASE) Allergy (Severe, Verified 07/17/25 15:09) Anaphylaxis levofloxacin (From Levaquin) Allergy (Severe, Verified 07/17/25 15:09) Anaphylaxis Penicillins (PCN) Allergy (Severe, Verified 07/17/25 15:09) Anaphylaxis seafood Allergy (Severe, Verified 07/17/25 15:09) Anaphylaxis Sulfa (Sulfonamide Antibiotics) (SULFA (SULFONAMIDE ANTIBIOTICS)) Allergy (Severe, Verified 07/17/25 15:09) Anaphylaxis, vomiting Tetracyclines Allergy (Severe, Verified 07/17/25 15:09) Anaphylaxis gabapentin Allergy (Intermediate, Verified 07/17/25 15:09) Hives pregabalin (From Lyrica) Allergy (Intermediate, Verified 07/17/25 15:09) Hives vancomycin Allergy (Intermediate, Verified 07/17/25 15:09) rash, redness, itchiness, anxiety divalproex sodium (Depakote) Allergy (Unknown, Verified 07/17/25 15:09) altered mental status gluten (GLUTEN) Allergy (Unknown, Verified 07/17/25 15:09) BLOATING,RASH rice Allergy (Verified 07/17/25 15:09) Unknown Medication List - Last Reviewed 07/17/25 by Francia Chow MA Advair HFA 115-21 mcg/actuation (fluticasone propion-salmeterol) 2 puffs inhalation Q12H NS albuterol sulfate 90 mcg/actuation 2 puffs inhalation Q6H PRN amitriptyline 25 mg PO BEDTIME 30 days apixaban (Eliquis) 5 mg PO BID 90 days baclofen 5 mg PO BEDTIME cane As directed cholestyramine (with sugar) 4 gram 4 grams PO BID 30 days colostomy bags As directed [colostomy supplies As directed] cyanocobalamin (vitamin B-12) 3,000 mcg PO DAILY 90 days diphenhydramine HCl (Benadryl) 25 mg PO Q8H 5 days duloxetine 60 mg PO DAILY 90 days famotidine (Pepcid) 20 mg PO BID 5 days ferrous sulfate 325 mg PO DAILY fludrocortisone 0.1 mg PO DAILY food supplemt, lactose-reduced (Boost) 1 ea PO QID levetiracetam 750 mg PO BID 30 days levothyroxine 50 mcg PO DAILY loperamide (Imodium A-D) 2 mg PO Q6H PRN loratadine 10 mg PO DAILY magnesium oxide 1 tab PO BID midodrine 10 mg PO QID gvfezhbd-yzl-UA-lycopen-lutein 0.4 mg-300 mcg- 250 mcg (CertaVite Senior) 1 tab PO DAILY omeprazole 40 mg PO DAILY oxycodone 15 mg PO Q4H PRN pantoprazole 40 mg PO DAILY potassium chloride 20 mEq (15 mL) PO BID prednisone 40 mg (2 x 20 mg) PO DAILY simvastatin 40 mg PO BEDTIME Symbicort 80-4.5 mcg/actuation (budesonide-formoterol) 2 puffs inhalation BID NS thiamine HCl (vitamin B1) (Vitamin B-1) 100 mg PO DAILY trazodone 50 mg PO BEDTIME Tobacco use date assessed: 07/17/25 Fall risk assessment: 2 + Falls in past year Last assessed Fall Risk: 03/26/25 Dental Screening Dental Screen Date: 07/17/25 Did you have a dental visit in the last 12 months?: No Did you have a dental problem in the last 6 months where you did not have access to dental care?: No Was dental information given to patient?: No HPI [facility] 07/13 feeling sick due to cancer HPI Details 69-year-old female with past medical his tory of hypothyroid, pseudoseizures, epilepsy, hypercholesterolemia, history of colon cancer, neurogenic bladder, COPD, IBS, pulmonary embolism last seen 04/17 coming in for hospital discharge follow up. in review of the notes, patient was seen in [facility] ED 06/29/2025 for decreased oral intake, nausea and vomiting. Underwent EGD 07/01/2025 esophageal stricture dilated and duodenal polyp removed. She was also found to have breast masses and awaiting breast biopsy. She was advised to complete a 5 day course of ceftriaxone and metronidazole and follow up with GI in 2 weeks. She was also given oxycodone to be used post procedurally for abdominal pain. Presenting with the management of multiple chronic conditions and evaluation of new symptoms, including dysphagia and expressive aphasia. Reports difficulty swallowing liquids, causing burning and pain. Esophageal dilation and polyp removal have not alleviated symptoms. Experiences unintended verbal expressions, raising concerns for stroke, given her cerebrovascular history. She had 1 episode last week and has not had recurrence. She does have a history of low potassium and low magnesium levels and plan for repeat blood work. She continues to have severe pain which per discharge note is expected and she is scheduled to see GI in 1 week. She is scheduled for breast biopsy 08/10/2025 and seeing Oncology afterwards. [facility] Medical History Paroxysmal A-fib Orthostatic hypotension History of small bowel obstruction Hospital discharge follow-up History of colon cancer History of gastric cancer History of pulmonary embolus (PE) Acute suprapubic pain Neurogenic bladder, NOS COVID-19 Primary cancer of foot Pulmonary embolism Degenerative cervical disc Lumbar disc disease Celiac disease Pure hypercholesterolemia Epilepsy Hypothyroidism COPD (chronic obstructive pulmonary disease) Pseudoseizure Conversion disorder Colon cancer Allergy to multiple drugs Deep vein thrombosis Surgical History History of urostomy History of endoscopy History of esophagogastroduodenoscopy (EGD) History of arthroplasty History of hysterectomy (~1979) Hx of cholecystectomy S/P IVC filter History of partial surgical removal of colon History of partial gastrectomy History of colectomy History of colostomy reversal History of bladder surgery History of sinus surgery History of facial surgery History of colonoscopy (~06/12/24) Family History Mother CAD (coronary artery disease) Other Mental health disorder Social History Household Members: None Household Members Other:: 1 Housing: Apartment Do you presently have visiting nurse or other home services: Yes Alcohol intake: former Patient Tobacco Use Status: Never used Tobacco Tobacco use type: Cigarette e-Cigarette/Vaping Use: Never Used Second Hand Smoke Exposure: No Advance Directives Date on File: 08/08/23 service: No Current occupational status: disabled Cognitive needs: Yes (cane) Hearing needs: No Vision needs: Yes (Glasses) Questionnaire PHQ-9 Over the last 2 weeks, how often have you been bothered by any of the following problems? 1. Little interest or pleasure in doing things: not at all 2. Feeling down, depressed, or hopeless: not at all 3. Trouble falling or staying asleep, or sleeping too much: several days 4. Feeling tired or having little energy: several days 5. Poor appetite or overeating: several days 6. Feeling bad about yourself - or that you are a failure or have let yourself or your family down: not at all 7. Trouble concentrating on things, such as reading the newspaper or watching television: not at all 8. Moving or speaking so slowly that other people could have noticed. Or the opposite - being so fidgety or restless that you have been moving around a lot more than usual: not at all 9. Thoughts that you would be better off or of hurting yourself in some way: not at all Total score: 3 Depression Screening Interpretation: Negative Depression Screening Done: Yes Source: Developed by Drs. Ranjit Valdovinos, Anila Baldwin, Saud Allison and colleagues, with an educational lionel from [employer]. Thrive Questionnaire Date Thrive assessed: 07/17/25 I am a: Patient What is your living situation today?: I have a steady place to live Within the past 12 months, did the food you bought not last and you didn't have the money to get more?: Never true Within the past 12 months, did you worry whether your food would run out before you got money to buy more?: Never true Do you have trouble paying for medicines?: No Do you have trouble getting transportation to medical appointments?: Yes Do you have trouble paying your heating and electricity bill?: No Do you have trouble taking care of your child, family member or friend?: No Do you have trouble with day-to-day activities such as bathing, preparing meals, shopping, managing finances, etc.?: No Are you currently unemployed and looking for a job?: No Are you interested in more education?: No Please select the resources that you would like help with: None Currently or been in a relationship where the following occur: No concerns reported THRIVE Score: 1 AUDIT C Alcohol Use Questionnaire (AUDIT-C) 1. How often do you have a drink containing alcohol?: Never 3. How often do you have six or more drinks on one occasion?: Never Total Score: 0 Score Reviewed/Action Taken: No EARNESTINE-7 AMB Questionnaire EARNESTINE-7 Date EARNESTINE - 7 assessed: 07/17/25 Feeling nervous, anxious, or on edge: 0 = Not at all Not being able to stop or control worryin = Not at all Worrying too much about different things: 0 = Not at all Trouble relaxin = Not at all Being so restless that it is hard to sit still: 1 = Several days Becoming easily annoyed or irritable: 1 = Several days Feeling afraid as if something awful might happen: 0 = Not at all Total EARNESTINE-7 score (0-4 normal; 5-9 mild; 10-14 moderate; 15-21 severe): 2 Source: Developed by Drs. Ranjit Valdovinos, Anila Baldwin, Saud Allison and colleagues, with an educational lionel from [employer]. EARNESTINE-7 Assessment Billing EARNESTINE-7 Assessment Tool: EARNESTINE-7 Assessment 00966 Review of Systems Const Denies body aches, Denies chills, Denies fever(s), Denies headache(s), Reports poor appetite, Reports weakness and Reports weight loss Eyes Reports no additional complaints ENT Reports dysphagia, Denies dizziness and Denies headache(s) Card Denies chest pain, Denies edema, Denies lightheadedness and Reports dyspnea (Chronic) Resp Denies cough and Reports dyspnea (Chronic) GI Reports abdominal pain, Reports dysphagia, Denies nausea and Denies vomiting Reports no additional complaints Musc Reports no additional complaints and Denies abnormal gait Skin/Breast Reports system reviewed and no additional complaints, except as documented Neuro Denies abnormal gait, Denies dizziness, Denies headache(s) and Reports weakness Psych Reports no additional complaints Physical exam (Primary Care) Vital Signs: Last Vital Signs Temp 97.5 F 07/17/25 15:12 Pulse 82 07/17/25 15:12 BP 110/60 07/17/25 15:12 Pulse Ox 98 07/17/25 15:12 Oxygen Delivery Method Room Air 07/17/25 15:12 BMI result Body Mass Index 22.7 Tobacco/Smoking Status: Tobacco use Status Tobacco use date assessed 07/17/25 07/17/25 15:17 Patient Tobacco Use Status Never used Tobacco 07/17/25 15:05 Tobacco use type Cigarette 07/17/25 15:17 e-Cigarette/Vaping Use Never Used 07/17/25 15:05 PHQ-9: PHQ-9 Score PHQ-9: Total score 3 07/17/25 15:09 Depression Screening Interpretation: Negative Thrive Assessment: Date of Thrive Assessment Date Thrive assessed 07/17/25 07/17/25 15:05 Currently or been in a relationship where the following occur: No concerns reported Const General: cooperative, healthy appearing, comfortable and no acute distress Orientation/consciousness: patient oriented x3 HENMT Head: Yes normocephalic Ears: hearing grossly normal bilaterally General nose exam: Normal external nose present Eyes General: appearance normal, both eyes and all related structures Conjunctivae: conjunctivae normal Neck Neck: Yes full ROM and Yes no lymphadenopathy Resp Effort & Inspection: normal respiratory effort Auscultation: clear to auscultation bilaterally, no crackles, no rales, no rhonchi and no wheezes Cardio Rate: regular rate Rhythm: regular rhythm Skin General skin exam: no rashes or lesions noted Neuro General: patient oriented x3 Gait exam (Neuro): Normal gait present Extrem General: Yes normal to inspection, Yes full ROM and No edema Psych Affect: normal affect Attitude: cooperative Insight: Good insight present (Psych) Judgement: Good judgement present (Psych) Coding Level of Care Code Est Pt Level 4 (28859) Diagnoses Expressive aphasia R47.01 Dysphagia, unspecified type R13.10 Dysphagia type: unspecified Malabsorption K90.9 Breast mass N63.0 Laterality: right Additional Codes EARNESTINE-7 Assessment Billing - EARNESTINE-7 Assessment Tool: EARNESTINE-7 Assessment 08699 ([id number]) Assessment & Plan Assessment & Plan (1) Expressive aphasia: Code(s): R47.01 - Aphasia Category: Medical Plan: Patient had 1 episode of expressive aphasia last week I discussed with her this can be concerning symptoms for a stroke. Neurovascularly intact today and no sign of neurological deficit on exam. I did review red flag symptoms and when to present for re-evaluation. (2) Dysphagia: Code(s): R13.10 - Dysphagia, unspecified Category: Medical Qualifiers: Dysphagia type: unspecified Qualified Code(s): R13.10 - Dysphagia, unspecified Plan: She continues to follow with GI and has a appointment next week. For increasing pain s/p dilation and polypectomy which per GI note is to be expected for the 1st 2 weeks plan to send refill of oxycodone for a short duration not to be refilled after the 3 days. (3) Malabsorption: Code(s): K90.9 - Intestinal malabsorption, unspecified Category: Medical Plan: Plan for repeat blood work to screen for hypokalemia and hypomagnesemia as patient is prone to this. She will continue to follow with GI and prescription sent for ensure drinks (4) Breast mass: Code(s): N63.0 - Unspecified lump in unspecified breast Category: Medical Qualifiers: Laterality: right Plan: Awaiting biopsy 08/10/2025 with oncology to follow up. Plan This note was constructed using voice recognition software. While every effort has been made to ensure accuracy and medical or surgical instrument maker, still areas may have been included sometimes these areas may affect the content or meeting of the given symptoms. Total time spent caring for the patient today was 20 minutes. This includes time spent before the visit reviewing the chart, time spent during the visit, and time spent after the visit and documentation. Patient was informed and verbally consented to the use of an ambient scribe for clinic note documentation during this visit. Orders: Orders Comprehensive Met. Panel Today K90.9 - Intestinal malabsorption, unspecified Magnesium Today K90.9 - Intestinal malabsorption, unspecified Medications: New oxycodone 15 mg (15 mL) PO Q8H PRN 135 mL 0RF pain 3 days Changed From food supplemt, lactose-reduced (Boost) 1 ea PO QID 5,688 mL 3RF K52.9 - Noninfective gastroenteritis and colitis, unspecified, K90.9 - Intestinal malabsorption, unspecified To food supplemt, lactose-reduced (Boost) chocolate 1 ea PO QID 5,688 mL 3RF K52.9 - Noninfective gastroenteritis and colitis, unspecified, K90.9 - Intestinal malabsorption, unspecified
[2025-07-17 15:12] VITALS: BP 110/60; PULSE 82; TEMP 36.4; O2SAT 98; BMI 22.7
--- OUTSIDE RECORDS SUMMARY | 2025-07-17 16:41 | XMS_ITS | Clinical Summary ---
Author Organization [facility] Address [address] [place] [address] Phone Care Team Providers Care Photography Manager Name Role Phone Bob Camp MD Primary [...] Active ferrous sulfate 324 mg (65 mg mi'kmaq iron) TbEC Take 1 tablet (324 mg [...] COLONOSCOPY 2001 RSV VACCINE (1 - Risk 50-74 years 1-dose series) 2006 PNEUMOCOCCAL VACCINES (50+ years) (2 of 2 [...] this topic Medical Devices Implanted Type Area Agile Scrum Master Device Identifier Shelf Expiration Date Model / Serial / Lot Pin Pin Cheek Stent Diversion 7fr 90cm X2 Ureteral Single J Guidewire Ptfe .028 120cm Silicone - [id number] Implanted:Qty: 1 on 04/09/2024 by Bg Castillo MD at [facility] Ureteral Stent N/A: Ureter OLYMPUS JOHN 02/19/2029 [id number] / / [id number] Ivc Filter-12/25/2021 Implanted: 2 by Jim Temple MD (Quantity not on file) [employer] Description:List Rec#7054 Object Description OptionELITE Retrievable Vena Cava Filter [employer], www[employer] Strength3 Object StatusConditional 6 Safety Topic / SubjectCoils, Filters, Stents, and Grafts Mesh Surgical [address]ry Phasix St Pocketed Bioresorbable Open Positioning System Oval - [id number] Implanted:Qty: 1 on 04/09/2024 by Pedro Pablo Campa MD at [facility] N/A: Abdomen [employer] [id number] 09/20/2025 [id number] / / [id number] Procedures Procedure Name Priority Date/Time Associated Diagnosis Comments BASIC METABOLIC PANEL Routine 06/13/2024 5:30 AM EDT ENDOSCOPY, COLON 06/12/2024 12:2 9 PM EDT from Last 3 Months or Most Recently Relevant to Health Maintenance Results * (ABNORMAL) Basic metabolic panel (06/13/2024 5:30 AM EDT) SODIUM 141 136 - 145 mmol/L [facility] POTASSIUM 3.8 3.4 - 5.1 mmol/L [facility] CHLORIDE 104 98 - 107 mmol/L [facility] CO2 28 22 - 31 mmol/L [facility] BUN 8 6 - 23 mg/dL [facility] CREATININE 0.51 0.50 - 1.20 mg/dL [facility] GLUCOSE 96 70 - 100 mg/dL [facility] CALCIUM 8.4(L) 8.8 - 10.7 mg/dL [facility] EGFR 102 >59 mL/min/1.7 3m2 [facility] Comment:Estimated glomerular filtration rate calculated using the CKD-EPI refit equation. ANION GAP 9 7 - 17 mmol/L [facility] Blood 06/13/2024 5:30 AM EDT 06/13/2024 6:09 AM EDT us Jaden Ponce PA-C LAB BLOOD ORDERABLES Fin al Result Performing Organization Address City/State[facility] Co de Phone Number [facility] [address] [place] [address] * ENDOSCOPY, COLON (06/12/2024 12:29 PM EDT) 06/12/2024 12:2 9 PM EDT Narrative Transcriptions Epifanio Seaman MD, MPH - 06/12/2024 12:29 PM EDT [facility] Gastroenterology Patient Name: Christi Donald Procedure Date: 06/12/2024 12:29 PM Date of : 1955 Admit Type: Inpatient Age: 68 Room: 2 Gender: Female Note Status: Finalized Attending MD: EPIFANIO SEAMAN MD [id number] Procedure: Colonoscopy Indications: Screening for colorectal malignant neoplasm (last colonoscopy was more than 10 years ago) Providers: EPIFANIO SEAMAN MD [id number], Enrique Dong Referring MD: Santana Sierra MD [...] prior to the procedure. - See the [facility] pre-procedure note for documentation of the [...] heparin in 6 hours Epifanio Seaman MD [id number] EPIFANIO SEAMAN MD [id number] 06/12/2024 1:06:08 PM This report has been [...] Advance Directives For more information, please contact: [phone] (9AM - 5PM [facility], Sunday-Sunday) * Full Code (Latest Code Status on File) Date Activated Date Inactivated Comments 06/06/2024 12:35 AM Question Answer Comments Code Status Confirmed With: Patient Healthcare Agents on File Name Relationship Healthcare Agent Relationshi p Communication Amari Townsend Spouse Alternate Health care Agent (Proxy form on file) Care Teams Photography Manager Relationship Specialty Start Date End Date Bob Camp MD [address] [place] [phone] PCP - General Internal Medicine 10/05/23 Additional Source Comments The information contained in this document represents components of the legal health record. It is not the complete legal health record.[facility]
--- OUTSIDE RECORDS SUMMARY | 2025-07-17 16:41 | XMS_ITS | Encounter Summary ---
Author Organization [facility] Address [address] [place] [address] Phone Care Team Providers Care Plater Barrel Name Role Phone Bob Camp MD Primary Care Provid er Encounter Details Date Type Department Care Team (Late st Contact Info) Description 06/12/2024 Procedure Pass [facility] Endoscopy Department [address] [place] [address] Social History Tobacco Use Types Packs/Day Years [...] documented as of this encounter Care Teams Plater Barrel Relationship Specialty Start Date End Date Bob Camp MD [address] [place] [phone] PCP - General Internal Medicine 10/05/23 documented as of this encounter Additional Source Comments The information contained in this document represents components of the legal health record. It is not the complete legal health record.[facility]
--- OUTSIDE RECORDS SUMMARY | 2025-07-17 16:41 | XMS_ITS | Encounter Summary ---
Author Organization [facility] Address [address] [place] [address] Phone Care Team Providers Care Painting Machine Operator Name Role Phone Bob Camp MD Primary Care Provid er Encounter Details Date Type Department Care Team (Late st Contact Info) Description 06/09/2024 Procedure Pass [facility] Endoscopy Department [address] [place] [phone] Social History Tobacco Use Types Packs/Day Years [...] documented as of this encounter Care Teams Painting Machine Operator Relationship Specialty Start Date End Date Bob Camp MD [address] [place] [address] [phone] PCP - General Internal Medicine 10/05/23 documented as of this encounter Additional Source Comments The information contained in this document represents components of the legal health record. It is not the complete legal health record.[facility]
--- OUTSIDE RECORDS SUMMARY | 2025-07-17 16:41 | XMS_ITS | Encounter Summary ---
Author Organization [facility] Address [address] [place] [address] Phone Care Team Providers Care Photography Professor Name Role Phone Bob Camp MD Primary Care Provid er Encounter Details Date Type Department Care Team (Late st Contact Info) Description 04/09/2024 Procedure Pass [facility] Periop [address] [place] [address] Social History Tobacco Use Types Packs/Day Years [...] documented as of this encounter Care Teams Photography Professor Relationship Specialty Start Date End Date Bob Camp MD [address] [place] [phone] PCP - General Internal Medicine 10/05/23 documented as of this encounter Additional Source Comments The information contained in this document represents components of the legal health record. It is not the complete legal health record.[facility]
--- OUTSIDE RECORDS SUMMARY | 2025-07-17 16:41 | XMS_ITS | Encounter Summary ---
Author Organization [facility] Address [address] [place] [address] Phone Care Team Providers Care Job Placement Counselor Name Role Phone Bob Camp MD Primary Care Provid er Encounter Details Date Type Department Care Team (Late st Contact Info) Description 04/15/2024 Procedure Pass [facility]'s Radiology [address] [place] [address] Social History Tobacco Use Types Packs/Day Years [...] documented as of this encounter Care Teams Job Placement Counselor Relationship Specialty Start Date End Date Bob Camp MD [address] [place] [phone] PCP - General Internal Medicine 10/05/23 documented as of this encounter Additional Source Comments The information contained in this document represents components of the legal health record. It is not the complete legal health record.[facility]
--- OUTSIDE RECORDS SUMMARY | 2025-07-17 16:41 | XMS_ITS | Encounter Summary ---
Author Organization [facility] Address [address] [place] [address] Phone Care Team Providers Care Retail Bakery Manager Name Role Phone Bob Camp MD Primary Care Provid er Encounter Details Date Type Department Care Team (Late st Contact Info) Description 04/09/2024 Procedure Pass [facility] Periop [address] [place] [address] Social History Tobacco Use Types Packs/Day Years [...] documented as of this encounter Care Teams Retail Bakery Manager Relationship Specialty Start Date End Date Bob Camp MD [address] [place] [phone] PCP - General Internal Medicine 10/05/23 documented as of this encounter Additional Source Comments The information contained in this document represents components of the legal health record. It is not the complete legal health record.[facility]
--- OUTSIDE RECORDS SUMMARY | 2025-07-17 16:41 | XMS_ITS | Encounter Summary ---
Author Organization [facility] Address [address] [place] [address] Phone Care Team Providers Care Line O Scribe Operator Name Role Phone Bob Camp MD Primary Care Provid er Encounter Details Date Type Department Care Team (Late st Contact Info) Description 06/12/2024 Procedure Pass [facility]'s Radiology [address] [place] [address] Social History Tobacco Use Types Packs/Day Years [...] documented as of this encounter Care Teams Line O Scribe Operator Relationship Specialty Start Date End Date Bob Camp MD NPI: [id number] [place] [phone] PCP - General Internal Medicine 10/05/23 documented as of this encounter Additional Source Comments The information contained in this document represents components of the legal health record. It is not the complete legal health record.[facility]
--- OUTSIDE RECORDS SUMMARY | 2025-07-17 16:41 | XMS_ITS | Encounter Summary ---
Author Organization [facility] Address [address] [place] [address] Phone Care Team Providers Care Glass Checker Name Role Phone Bob Camp MD Primary Care Provid er Encounter Details Date Type Department Care Team (Late st Contact Info) Description 06/06/2024 [facility] Radiology [address] [place] [address] Social History Tobacco Use Types Packs/Day Years [...] 12:52 AM EDT Elisabeth Aguilar RN * [place] Suicide Severity Rating Scale (Screener/Recent Self-Report) Question [...] documented as of this encounter Care Teams Glass Checker Relationship Specialty Start Date End Date Bob Camp MD [address] [place] [phone] PCP - General Internal Medicine 10/05/23 documented as of this encounter Additional Source Comments The information contained in this document represents components of the legal health record. It is not the complete legal health record.[facility]
--- OUTSIDE RECORDS SUMMARY | 2025-07-17 16:41 | XMS_ITS | Encounter Summary ---
Author Organization [facility] Address [address] [place] [address] Phone Care Team Providers Care Global Sourcing Manager Name Role Phone Bob Camp MD Primary Care Provid er Encounter Details Date Type Department Care Team (Late st Contact Info) Description 05/02/2024 Procedure Pass [facility] Scan - [address] [address] Social History Tobacco Use Types Packs/Day Years [...] 11:00 PM EDT Jasen Sandoval RN * [place] Suicide Severity Rating Scale (Screener/Recent Self-Report) Question [...] documented as of this encounter Care Teams Global Sourcing Manager Relationship Specialty Start Date End Date Bob Camp MD [address] [place] [phone] PCP - General Internal Medicine 10/05/23 documented as of this encounter Additional Source Comments The information contained in this document represents components of the legal health record. It is not the complete legal health record.[facility]
== END 2025-07-17 16:12 | disposition home or self-care (01) ==
LOC: HO.HMCH 15:03
DX: R47.01 Aphasia (principal); R13.10 Dysphagia, unspecified; K90.9 Intestinal malabsorption, unspecified; N63.0 Unspecified lump in unspecified breast

== ENCOUNTER → 2025-07-17 15:02 | Outpatient (BNVA) | payer OTHER, SELFPAY | DX: R47.01 Aphasia (principal); R13.10 Dysphagia, unspecified; K90.9 Intestinal malabsorption, unspecified; N63.0 Unspecified lump in unspecified breast; K52.9 Noninfective gastroenteritis and colitis, unspecified | CPT/HCPCS: 96127; 99212 ==

== ENCOUNTER 2025-08-13 08:59 | Outpatient (AMB) | payer OTHER, SELFPAY ==
--- OUTSIDE RECORDS SUMMARY | 2025-08-10 11:23 | XMS_ITS | Continuity of Care Document ---
Author Organization [facility] ter Address [address] [place] [address]- Support Name Relationship Address Phone SHIKHA FELIZ child Unknown Unavailable STONEYMICHELLE sibling Unknown Unavailab le JOANA, JUJU Personal Relationship Unknown U navailable JOANA, JUJU Personal Relationship Unknown U navailable IVONNE FELIZ Other Unknown Unavailable JOANA, JUJU Personal Relationship Unknown U navailable JOANA, JUJU Personal Relationship Unknown U navailable JOANA, AMARI spouse Unknown Unavailabl e RESCIA, PARISH child Unknown Unavailable JOANA, JUJU Personal Relationship Unknown U navailable JOANA, JUJU Personal Relationship Unknown U navailable CLEMENTINE, AMARI domestic partner Unknown Unavailab le JOANA, JUJU Personal Relationship Unknown U navailable JOANA, JUJU Personal Relationship Unknown U navailable CLEMENTINE, MICHAEL spouse Unknown Unavailable JOANA, JUJU Personal Relationship Unknown U navailable HARIMAN, MICHELLE sibling Unknown Unavailabl e JOANA, JUJU Personal Relationship Unknown U navailable JOANA, JUJU Personal Relationship Unknown U navailable JOANA, JUJU Personal Relationship Unknown U navailable NONE, NONE Other Unknown Unavailable JOANA, JUJU Personal Relationship Unknown U navailable JOANA, JUJU Personal Relationship Unknown U navailable JOANA, JUJU Personal Relationship Unknown U navailable 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 Role Phone Era Moser Primary Care Physician Encounter [facility] Date(s): 07/30/25 - 08/10/[address] [address]- Encounter Diagnosis Abdominal pain(Final) - 07/30/25 Dysphagia(Discharge Diagnosis) - 07/30/25 Discharge Disposition: A-Transfer VNA/Home Health Attending Physician: Jose Francisco Sage MD Admitting Physician: Jacqueline PAUL, Cristóbal Hyde Referring Physician: Not on Staff, Referring MD Encounter Type: Disch IP Allergies, Adverse Reactions, Alerts Substance Criticality Severity Reaction Reaction Severity Status codeine n-v Active gabapentin High criticality Severe States yara thing difficulty and itchiness from med Active doxycycline n-v rash Active tetracycline n-v rash Active clindamycin n-v rash Active erythromycin n-v rash Active rifampin n-v rash Active oxacillin n-v rash Active acetaminophen Active amoxicillin n-v rash Amoxycillin allergy Active cefpodoxime 1, 2 Act jessy nitrofurantoin Activ e penicillin 3 anaphylaxis rash Active vancomycin n-v rash Active sulfa drugs n-v rash Active Motrin 4 Active Levaquin n-v rash Active Fish Active Rice severe vomiting Acti ve Depakote Active Glutens Allergy to seafood A ctive Seafood Active 1Has tolerated ceftriaxone and cefepime in the past 2hives, feeling of throat swelling 3tolarates cefepime, ceftriaxone 07/2022 4Vomiting, Nausea, Abdominal Pain Functional Status Functional Status Assessment Assessment Assessment Component Result Effecti Santino scale total score 21 Functional Status Assessment Assessment Assessment Component Result Effecti Total score [AUDIT] 0 07/30/25 Functional Status Assessment Assessment Assessment Component Result Effecti Total Falls Risk Score 3 08/09 Functional Status Assessment Assessment Assessment Component Result Effecti Santino scale total score 22 Functional Status Assessment Assessment Assessment Component Result Effecti Total Falls Risk Score 4 08/09 Functional Status Assessment Assessment Assessment Component Result Effecti Santino scale total score 21 Functional Status Assessment Assessment Assessment Component Result Effecti Total Falls Risk Score 5 08/09 Functional Status Assessment Assessment Assessment Component Result Effecti ve Total score [AUDIT] 0 08/01/25 Functional Status Assessment Assessment Assessment Component Result Effect Disability status [CUBS] I'm Building Capacity - I have an asymptomatic condition controlled by services or medication 07/30/25 Do you need any additional assistance or accommodations during your visit No 07/30/25 Difficulty Reading O r Writing No 07/30/25 Difficulty communica ting in usual language No 07/30/25 Are you blind, or do you have serious difficulty seeing, even when wearing glasses Yes 07/30/25 Are you deaf, or do you have serious difficulty hearing No 07/30/25 Do you have difficul ty dressing or bathing No 07/30/25 Do you have serious difficulty walking or climbing stairs Yes 07/30/25 Because of a physica l, mental, or emotional condition, do you have serious difficulty concentrating, remembering, or making decisions No 07/30/25 Because of a physica l, mental, or emotional condition, do you have difficulty doing errands alone such as visiting a physician's office or shopping No 07/30/25 Immunizations Given and Recorded Vaccine Date Status Refusal Reason influenza virus vaccine, inactivated 08/02/25 Give n influenza virus vaccine, inactivated 06/20/23 Mahendra rded influenza virus vaccine, inactivated 08/20/22 Give n influenza virus vaccine, inactivated 11/27/21 Give n influenza virus vaccine, inactivated 05/23/19 Mahendra rded influenza virus vaccine, inactivated 06/08/18 Mahendra rded influenza virus vaccine, inactivated 11/13/09 Give n influenza virus vaccine, inactivated 1 09/06/08 Gi juanita influenza virus vaccine, inactivated 2 10/03/06 Gi juanita pneumococcal 20-valent conjugate vaccine 06/20/23 Recorded SARS-CoV-2 mRNA ([id number]) vax 02/25/22 Given SARS-CoV-2 mRNA ([id number]-[id number]-ojzuz) vax 3 12/11/21 Given pneumococcal 13-valent vaccine 05/07/20 Recorded Zoster Vaccine Live 12/30/18 Recorded zoster vaccine, inactivated 06/15/18 Recorded Tet/diphth/pertussis, acel (oldterm) 03/19/12 Give n influ virus vac, H1N1, inactive(oldterm) 10/24/09 Given Pneumococcal Poly (PPV23) (oldterm) 06/14/06 Given Pneumococcal Vaccine (oldterm) 06/14/06 Given 1Admin Note: given without difficulty, tolerated well 2Result Comment: lot #[id number] exp 10/03/06 3Early/Late Reason: Early/Late Reason: Med Not Available Medications cholecalciferol 1000 intl units oral tablet 1 tablet = 25 mcg, By Mouth, Daily, # 30 tablet, 0 Refills, Maintenance, 03/16/25 2:10:00 PM EDT, Tablet, [facility], Partial fill upon patient request if the prescription is for a schedule II opioid drug., 150, cm, 03/16/25 13:30:00 EDT, Height, 54, kg, 03/02/25 16:58:00 EDT, Dry Weight Start Date: 03/16/25 Status: Ordered Medication Dispense Status: Completed Quantity: 30.0 Unit: tablet Total Allowed Fills: 1 Fills Dispensed: 0 cholestyramine 4 g/5.5 g oral powder for reconstitution = 4 Gm, By Mouth, Daily, # 60 each, 0 Refills, Maintenance, 12/10/24 12:43:00 PM EDT, REC Powder, [facility], Partial fill upon patient request if the prescription is for a schedule II opioid drug., 160, cm, 11/27/24 10:10:00 EST, Height, 58.5, kg, 11/26/24 7:23:00 EST, Dry Weight Start Date: 12/10/24 Status: Ordered Medication Dispense Status: Completed Quantity: 60.0 Unit: each Total Allowed Fills: 1 Fills Dispensed: 0 Indications: Diarrhea, unspecified; dicyclomine 10 mg oral capsule 2 capsule = 20 mg, By Mouth, 3 times a day, # 180 capsule, 0 Refills, Maintenance, 08/10/25 9:00:00AM EST, Capsule, [facility], Partial fill upon patient request if the prescription isfor a schedule II opioid drug., 153, cm, 08/10/25 7:49:00 EST, Height, 48.5, kg, 07/30/25 16:44:00 EST, Dry Weight Start Date: 08/10/25 Status: Ordered Medication Dispense Status: Completed Quantity: 180.0 Unit: capsule Total Allowed Fills: 1 Fills Dispensed: 0 Dilaudid 4 mg oral tablet = 4 mg, By Mouth, Every 6 hours, PRN Pain , Severe, for 3 days, # 12 tablet, 0 Refills, Acute 08/13/25 8:59:00 AM EST, 08/10/25 8:59:00 AM EST, Tablet, [facility], Partial fill upon patient request if the prescription is for a schedule II opioid drug., 153, cm, 08/10/25 7:49:00 EST, Height, 48.5, kg, 07/30/25 16:44:00 EST, Dry Weight Start Date: 08/10/25 Stop Date: 08/13/25 Status: Ordered Medication Dispense Status: Completed Quantity: 12.0 Unit: tablet Total Allowed Fills: 1 Fills Dispensed: 0 Dilaudid 4 mg oral tablet 4 mg, Tablet, By Mouth, Every 4 hours, PRN for Pain , Severe, Routine, 08/07/25 9:31:00 AM EST Start Date: 08/07/25 Stop Date: 08/10/25 Status: Discontinued Medication Dispense Status: Completed Total Allowed Fills: 1 Fills Dispensed: 0 duloxetine 60 mg oral enteric coated capsule 1 capsule = 60 mg, By Mouth, Daily, # 30 capsule, 0 Refills, Maintenance, 06/04/24 11:01:00 PM EDT, EC Capsule, Partial fill upon patient request if the prescription is for a schedule II opioid drug. Start Date: 06/04/24 Status: Ordered Medication Dispense Status: Completed Quantity: 30.0 Unit: capsule Total Allowed Fills: 1 Fills Dispensed: 0 Eliquis 5 mg oral tablet 1 tablet = 5 mg, By Mouth, 2 times a day, # 60 tablet, 0 Refills, Maintenance, 05/28/25 8:34:00 AM EDT, Tablet, [facility], Partial fill upon patient request if the prescription is for a schedule II opioid drug., 152.4, cm, 05/27/25 20:31:00 EDT, Height, 52.5, kg, 05/20/25 16:50:00 EDT,Dry Weight Start Date: 05/28/25 Status: Ordered Medication Dispense Status: Completed Quantity: 60.0 Unit: tablet Total Allowed Fills: 1 Fills Dispensed: 0 fludrocortisone 0.1 mg oral tablet = 0.2 mg, By Mouth, Daily in AM, # 60 tablet, 0 Refills, Maintenance, 05/28/25 8:33:00 AM EDT, Tablet, [facility], Partial fill upon patient request if the prescription is for a schedule II opioid drug., 152.4, cm, 05/27/25 20:31:00 EDT, Height, 52.5, kg, 05/20/25 16:50:00 EDT, Dry Weight Start Date: 05/28/25 Status: Ordered Medication Dispense Status: Completed Quantity: 60.0 Unit: tablet Total Allowed Fills: 1 Fills Dispensed: 0 fluticasone-salmeterol 115 mcg-21 mcg inhalation aerosol with adapter 2 inhalation, Inhalation, 2 times a day, rinse mouth and throat after use, # 8 Gm, 0 Refills, Maintenance, 12/16/24 10:01:00 PM EDT, Aerosol, Partial fill upon patient request if the prescription is for a schedule II opioid drug. Start Date: 12/16/24 Status: Ordered Medication Dispense Status: Completed Quantity: 8.0 Unit: g Total Allowed Fills: 1 Fills Dispensed: 0 levETIRAcetam 750 mg oral tablet 1 tablet = 750 mg, By Mouth, 2 times a day, # 60 tablet, 2 Refills, Maintenance, 05/28/25 8:45:00 AM EDT, Tablet, [facility], Partial fill upon patient request if the prescription is for a schedule II opioid drug., 152.4, cm, 05/27/25 20:31:00 EDT, Height, 52.5, kg, 05/20/25 16:50:00 EDT, Dry Weight Start Date: 05/28/25 Stop Date: 08/26/25 Status: Ordered Medication Dispense Status: Completed Quantity: 60.0 Unit: tablet Total Allowed Fills: 3 Fills Dispensed: 0 levothyroxine 0.05 mg oral tablet 1 tablet = 50 mcg, By Mouth, Daily, # 30 tablet, 0 Refills, Maintenance, 06/04/24 11:01:00 PM EDT, Tablet, Partial fill upon patient request if the prescription is for a schedule II opioid drug. Start Date: 06/04/24 Status: Ordered Medication Dispense Status: Completed Quantity: 30.0 Unit: tablet Total Allowed Fills: 1 Fills Dispensed: 0 lidocaine 2.5% topical liquid See Instructions, PRN Other, By Mouth Every 4 hours, # 120 mL, 0 Refills, Maintenance, 07/13/25 11:29:00 AM EDT, Liquid, [facility], Partial fill upon patient request if the prescription is for a schedule II opioid drug., By Mouth Every 4 hours,PRN:Other, 153, cm, 07/13/25 11:23:00 EDT, Height, 52, kg, 06/29/25 15:37:00 EDT, Dry Weight Start Date: 07/13/25 Status: Ordered Medication Dispense Status: Completed Quantity: 120.0 Unit: mL Total Allowed Fills: 1 Fills Dispensed: 0 loperamide 2 mg oral capsule 4 mg, By Mouth, 3 times a day, Can take additional 4 mg if output greater than 1.5 L in 24 hours. (Do not exceed more than 16 mg in a day) If colostomy output decreases, hold dose., # 180 capsule, Refills 0, Tot. Refills 0, Maintenance, 03/16/25 2:13:00 PM EDT, Route to Pharmacy Electronically, [facility], Partial fill upon patient request if the prescription is for a schedule II opioid drug., 150, cm, 03/16/25 13:30:00 EDT, Height, 54, kg, 03/02/25 16:58:00 EDT, Dry Weight Start Date: 03/16/25 Status: Ordered Medication Dispense Status: Completed Quantity: 180.0 Unit: capsule Total Allowed Fills: 1 Fills Dispensed: 0 midodrine 10 mg oral tablet 1 tablet = 10 mg, By Mouth, 3 times a day, # 90 tablet, 0 Refills, Maintenance, 05/28/25 8:34:00 AM EDT, Tablet, [facility], Partial fill upon patient request if the prescription is for aschedule II opioid drug., 152.4, cm, 05/27/25 20:31:00 EDT, Height, 52.5, kg, 05/20/25 16:50:00 EDT, Dry Weight Start Date: 05/28/25 Status: Ordered Medication Dispense Status: Completed Quantity: 90.0 Unit: tablet Total Allowed Fills: 1 Fills Dispensed: 0 multivitamin Multiple Vitamins oral tablet 1 tablet, By Mouth, Daily, # 90 tablet, 0 Refills, Maintenance, 07/31/24 3:35:00 PM EST, Tablet, [facility], Partial fill upon patient request if the prescription is for a schedule II opioid drug., 1 tablet By Mouth Daily, 153, cm, 07/15/24 7:40:00 EDT, Height, 54.8, kg, 07/09/24 17:57:00 EDT, Dry Weight Start Date: 07/31/24 Status: Ordered Medication Dispense Status: Completed Quantity: 90.0 Unit: tablet Total Allowed Fills: 1 Fills Dispensed: 0 Narcan 4 mg/0.1 mL nasal spray 1 sprays = 4 mg, Naris, Left, Once, PRN Other, To reverse opioid overdose as needed; Use one spray in one nostril. if an additional dose is needed, alternate nostril; May repeat every 2 to 3 minutes until patient responds, # 2 each, 0 Refills, Soft Stop, 09/01/24 9:20:00 AM EST, [facility], Partial fill upon patient request if the prescription is for a schedule II opioid drug., 153, cm, 09/01/24 8:14:00 EST, Height, 52, kg, 08/24/24 16:02:00 EST, Dry Weight Start Date: 09/01/24 Status: Ordered Medication Dispense Status: Completed Quantity: 2.0 Unit: each Total Allowed Fills: 1 Fills Dispensed: 0 omeprazole 40 mg oral enteric coated capsule 1 capsule = 40 mg, By Mouth, Daily, 30-40 mins before breakfast, # 30 capsule, 4 Refills, Maintenance, 09/29/24 1:20:00 PM EST, EC Capsule, [facility], Partial fill upon patient request if the prescription is for a schedule II opioid drug., 154, cm, 09/29/24 12:53:00 EST, Height, 56.6, kg, 09/26/24 16:02:00 EST, Dry Weight Start Date: 09/29/24 Status: Ordered Medication Dispense Status: Completed Quantity: 30.0 Unit: capsule Total Allowed Fills: 5 Fills Dispensed: 0 Indications: Gastro-esophageal reflux disease without esophagitis; Dysphagia, unspecified; ProAir HFA 90 mcg/inh inhalation aerosol with adapter 1, puffs, Inhalation, Every 6 hours, PRN, # 8.5 Gm, Refills 0, Maintenance, 11/06/19 3:20:00 PM EST,Aerosol Start Date: 11/06/19 Status: Ordered Medication Dispense Status: Completed Quantity: 8.5 Unit: g Total Allowed Fills: 1 Fills Dispensed: 0 thiamine 100 mg oral tablet 100 mg, 1, tablet, By Mouth, Daily, # 10 tablet, Refills 0, Maintenance, 05/07/25 8:39:00 PM EDT, Partial fill upon patient request if the prescription is for a schedule II opioid drug. Start Date: 05/07/25 Stop Date: 05/17/25 Status: Ordered Medication Dispense Status: Completed Quantity: 10.0 Unit: tablet Total Allowed Fills: 1 Fills Dispensed: 0 traZODone 50 mg oral tablet 50 mg, 1, tablet, By Mouth, Daily at bedtime, PRN, # 30 tablet, Refills 0, Maintenance, Sleep, 10/16/24 5:31:00 PM EST, Partial fill upon patient request if the prescription is for a schedule II opioid drug. Start Date: 10/16/24 Status: Ordered Medication Dispense Status: Completed Quantity: 30.0 Unit: tablet Total Allowed Fills: 1 Fills Dispensed: 0 Vitamin B-12 1000 mcg oral tablet 1,000 mcg, 1, tablet, By Mouth, Daily, # 30 tablet, Refills 0, Maintenance, 11/26/24 7:31:00 AM EST, Partial fill upon patient request if the prescription is for a schedule II opioid drug. Start Date: 11/26/24 Status: Ordered Medication Dispense Status: Completed Quantity: 30.0 Unit: tablet Total Allowed Fills: 1 Fills Dispensed: 0 Mental Status Mental Status Assessment Assessment Assessment Component Result Effecti ve Date Maddy coma score total 15 07/18 Mental Status Assessment Assessment Assessment Component Result Effecti ve Date Maddy coma score total 15 Mental Status Assessment Assessment Assessment Component Result Effecti ve Date Maddy coma score total 15 Problem List Condition Confirmation Course Effective Dates Status H ealth Status Informant Anticoagulated on Eliquis Confirmed Active Afib Confirmed Active Breast mass Confirmed Active Chest pain Confirmed Active Colostomy present Confirmed Active Conversion disorder Confirmed 11/12/09 Active Dehydration Confirmed Active Diarrhea Confirmed Active Dysphagia Confirmed Active Esophageal dysmotility Confirmed Active GERD (gastroesophageal reflux disease) Confirmed Active NO h/o CVA by MRI Confirmed Active History of DVT (deep vein thrombosis) Confirmed Active History of pulmonary embolism Confirmed Active Status post ileal conduit Confirmed Active Hypokalemia Confirmed Active Major depression Confirmed Active Myofascial pain syndrome Confirmed Active Narcotic dependence, opiate seeking behavior 1 Confirmed 11/29/13 Active Nausea and vomiting Confirmed Active Pain in pelvis Confirmed Active Parastomal hernia Confirmed Active Pseudoseizures Confirmed Active PTSD (post-traumatic stress disorder) Confirmed Active Rapid gastric emptying Confirmed Active Seizure disorder Confirmed Active SVT - Supraventricular tachycardia 2 Confirmed Stable Active UTI symptoms Confirmed Active 11-07-12 Terminated by [facility] for violation of narcotic contract. 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 12-21-13 Opiate seeking behavior. Complex psychosocial issues. 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 Diagnosis Diagnosis Type Effective Dates Health Status Clini penny Service Informant Dysphagia Discharge Diagnosis 07/30/25 Non-Specified Results Radiology Reports * Exam Date Time Procedure Performing Provider Status 08/08/25 10:[address] Abd/Pelvis W/ IV Contrast Only Auth (Verified) Notes: (CT Abd/Pelvis W/ IV Contrast Only) Reason For Exam: Pain RESULT: CT Abd/Pelvis W/ IV Contrast Only CT Abd/Pelvis W/ IV Contrast Only REASON: Pain; Clinical Question(s): Obstruction; cannot tolerate PO, persistent abdominal pain vomiting TECHNIQUE: Spiral CT through the abdomen and pelvis with IV contrast formatted in 3 planes. 100 cc of Isovue 300 100cc vials was administered intravenously. This study was performed without oral contrast. Weight-based protocol using automatic tube modulation was used to optimize exposure parameters. CTDIvol Body: 11.40 mGy, DLP Body: 582 mGy*cm. COMPARISON: 07/30/2025. Correlation with MRI abdomen 07/31/2025. FINDINGS: Drama Director View Findings, Lines and Tubes: None. Visualized Chest: Mild dependent atelectasis. Normal heart size. No significant pleural or pericardial effusion. Diaphragm: Normal. Liver: Normal morphology and attenuation. No suspicious lesion. Gallbladder: Absent consistent with prior cholecystectomy. Bile ducts: Mild biliary ductal dilatation, similar to prior. Trace pneumobilia, likely postprocedural. Spleen: Normal. Pancreas: Mild pancreatic ductal dilatation, similar to prior. Small amount of gas in the pancreatic duct is likely post procedural. Adrenal glands: Normal. Kidneys and ureters: No hydronephrosis, stones, or suspicious masses. Bladder: Status post cystectomy and ileal loop diversion, similar to prior. Reproductive organs: The uterus is not seen and may be surgically absent. Stomach, small bowel, and large bowel: Status post distal colectomy with left lower quadrant colostomy. No evidence of bowel obstruction. High density material within the distal large bowel extendingto the ostomy from prior esophagram. Appendix: No evidence of acute appendicitis. Peritoneum and retroperitoneum: Trace perihepatic free fluid. No pneumoperitoneum. No omental or mesenteric lesions. Lymph nodes: No enlarged lymph nodes. Blood vessels: Mild vascular calcifications but no aneurysm. IVC filter. No evidence of venous thrombosis. Abdominal and pelvic wall: Left lower quadrant colostomy. Right upper quadrant urostomy. Multiple mesh anchors in the anterior abdominal wall. Bones: No acute abnormality. IMPRESSION: No evidence of bowel obstruction or other acute abnormality in the abdomen/pelvis. WSN: [id number] Ordering Physician: Cheryl Nickerson Dictated By: Jalen Rivera MD Dictated Date/Time: 08/08/25 10:37 a Reviewed By: Jalen Rivera MD Signed By: Jalen Rivera MD Signed Date/Time: 08/08/25 10:37 am Transcribed By: MARIA Transcribed Date/Time: 08/08/25 10:31 am * Exam Date Time Procedure Performing Provider Status 08/05/25 3:25 PM XR Esophagus BS Single Contrast Modified Notes: (XR Esophagus BS Single Contrast) Reason For Exam: Other: RESULT: XR Esophagus BS Single Contrast PROCEDURE: XR Esophagus BS Single Contrast CLINICAL INDICATION: Reason: Other:; Clinical Question(s): Stricture Esophagus COMPARISONS: Barium swallow 07/04/2025 FLUOROSCOPY TIME: 1 minute 18 seconds EXPOSURE: 1602.2 uGym2 (Dose Area Product) TECHNIQUE: Aqueous contrast esophagram was performed by Edil Cordoba PA-C. FINDINGS: Interval displacement of previously visualized proximal esophageal ligamentous clips. Left-sided Port-A-Cath is again seen with distal tip projecting over the atriocaval junction. Swallow: Normal oral and pharyngeal phases with no laryngeal penetration or subglottic aspiration. Esophagus: Smooth concentric narrowing of the distal esophagus is visualized which obstructs passage of a 13 mm barium tablet despite subsequent swallows of water and contrast, not apparent on prior study. Tertiary contractions of the distal esophagus are again seen and proximal escape the barium bolus noted. No hiatal hernia. No spontaneous gastroesophageal reflux was appreciated during the study. No evidence of esophageal web or outpouching. The stomach and proximal duodenum are grossly normal. Contrast promptly empties from the stomach into a nondilated duodenum. No gastric outlet obstruction. IMPRESSION: Findings suspicious for distal esophageal stricture causing partial obstruction, not clearly appreciated on prior exam. Follow-up with endoscopy as indicated clinically. Moderate esophageal dysmotility unchanged from prior study. By undersigning and finalizing the report, the attending radiologist confirms he/she has personallyreviewed and interpreted the images and agrees with the description of the findings. I have personally reviewed the images and I agree with this report. WSN: [id number] Ordering Physician: Cheryl Nickerson Dictated By: Bhupinder Doll Dictated Date/Time: 08/05/25 4:10 pm Reviewed By: Papito Ardon MD, V Signed By: Papito Ardon MD, V Signed Date/Time: 08/05/25 4:15 pm Transcribed By: MARIA Transcribed Date/Time: 08/05/25 4:02 pm * Exam Date Time Procedure Performing Provider Status 07/31/25 12:25 PM MRI Abdomen W+W/O Contrast Auth (Verified) Notes: (MRI Abdomen W+W/O Contrast) Reason For Exam: Pain RESULT: MRI Abdomen W+W/O Contrast MRI Abdomen W+W/O Contrast CLINICAL INDICATION: Reason: Pain; Clinical Question(s): Tumor Primary; Special Instructions: MRCP protocol; Order Comment: Please see Reference Text for complete list of contraindications Tumor Primary TECHNIQUE: Multiplanar, multisequence pre and post contrast MRI evaluation of the abdomen was performed. 10 cc of Prohance was administered intravenously. 3-D rotating maximum intensity projection MRCP images of the biliary tree were generated on the same workstation with concurrent physician supervision. COMPARISON: Most recent MR abdomen with without contrast 05/11/[address] abdomen/pelvis with IV contrast 07/30/2025. FINDINGS: LOWER THORAX: No pleural or pericardial effusion. Mild bibasilar atelectasis. 1.2 cm enhancing right breast mass (13:45), probably corresponding with the lesion as seen on 06/09/2025 ultrasound for which biopsy was recommended. LIVER: Normal contour and size. Normal parenchymal enhancement. A few T2 hyperintense nonenhancing simple appearing cysts require no specific follow-up. No suspicious abnormality. Mild hepatic steatosis as evidenced by loss of signal on opposed phase T1-weighted images (hepatic fat fraction of 7.9%). GALLBLADDER: Status-post cholecystectomy. BILE DUCTS: No intrahepatic biliary ductal dilatation. Mild extrahepatic biliary ductal dilatation with the distal common bile duct measuring approximately 0.8 cm, previously 1.3 cm on 05/11/2025 MRI.No definite obstructing lesion. Low insertion of the cystic duct. SPLEEN: Normal. PANCREAS: Normal. Mild prominence of the pancreatic ductal dilatation, measuring 0.3 cm at the body, slightly decreased from prior. ADRENAL GLANDS: No nodules. KIDNEYS: No hydronephrosis. Kidneys enhance symmetrically. No suspicious mass. A few T2 hyperintense and T1 hypointense simple appearing renal cysts require no specific follow-up. STOMACH/UPPER GI TRACT: Stomach and visualized abdominal bowel normal in caliber. Status post rectosigmoid colectomy with a partially visualized left lower quadrant colostomy. Patulous anastomosis inthe pelvis, unchanged. PERITONEUM AND RETROPERITONEUM: No loculated fluid collection or peritoneal mass. Susceptibility artifact from numerous metallic surgical clips in the abdomen and pelvis. LYMPH NODES: No lymphadenopathy. VESSELS: Abdominal aorta is nonaneurysmal. Hepatic, portal and splenic veins patent. Retroaortic left renal vein, anatomic variant. IVC filter in place. Visualized inferior vena cava otherwise unremarkable. ABDOMINAL WALL: Right lower quadrant urostomy and left lower quadrant colostomy. Postsurgical changes to the ventral abdominal wall. BONES: Mild degenerative changes in the spine. Unchanged probable osseous hemangioma at L2. IMPRESSION: Mildly dilated common duct, tapering appropriately to the ampulla. The degree of bile duct dilationhas decreased from 05/11/2025. No obstructing lesion is seen. Findings could be due to postcholecystectomy state or sphincter of Oddi dysfunction. No evidence of pancreatic malignancy. Mild prominence of the main pancreatic duct, has slightly decreased from 05/11/2025. I have personally reviewed the images and I agree with this report. WSN: [id number] Ordering Physician: Matheus Chris Dictated By: Osman Oquendo MD Dictated Date/Time: 07/31/25 8:37 pm Reviewed By: Shamir Nath MD Signed By: Shamir Nath MD Signed Date/Time: 07/31/25 8:42 pm Transcribed By: MARIA Transcribed Date/Time: 07/31/25 4:46 pm * Exam Date Time Procedure Performing Provider Status 07/30/25 11:16 AM Chest 2 Views Frontal and Lat Auth (Verified) Notes: (Chest 2 Views Frontal and Lat) Reason For Exam: Shortness of Breath, Fever;Other: RESULT: Chest 2 Views Frontal and Lat Chest 2 Views Frontal and Lat Hx of Present Illness: Patient recently hospitalized for UTI presents with abd pain from epigastricregion to ileostomy site. Endorses n v chills. Recently diagnosed w breast cancer has not started chemo radiation.; Reason: Shortness of Breath, Fever; Clinical Question(s): Pneumonia COMPARISON: Most recent on 03/13/2025, CT abdomen and pelvis. FINDINGS: LINES AND TUBES: Left chest wall Port-A-Cath with its tip in the lower SVC. LUNGS AND PLEURA: Chronic pleural parenchymal disease peripheral right lung base. Lungs otherwise clear. Normal pulmonary vascularity. Trace pleural fluid or fibrosis right posterior costophrenic angle. No pneumothorax. HEART, MEDIASTINUM AND ALEXUS: Heart is normal in size. Normal mediastinal and hilar contour. BONES AND SOFT TISSUES: No acute abnormality. IMPRESSION: No acute abnormality. I have personally reviewed the images and I agree with this report. WSN: [id number] Ordering Physician: Russell Bojorquez Dictated By: Santo Bains MD Dictated Date/Time: 07/30/25 11:33 a Reviewed By: Jalen Balderas MD Signed By: Jalen Balderas MD Signed Date/Time: 07/30/25 11:38 am Transcribed By: MARIA Transcribed Date/Time: 07/30/25 11:29 am * Exam Date Time Procedure Performing Provider Status 07/30/25 11:[address] Abd/Pelvis W/ IV Contrast Only Auth (Verified) Notes: (CT Abd/Pelvis W/ IV Contrast Only) Reason For Exam: Epigastric pain;Other: RESULT: CT Abd/Pelvis W/ IV Contrast Only CT Abd/Pelvis W/ IV Contrast Only Hx of Present Illness: Patient recently hospitalized for UTI presents with abd pain from epigastricregion to ileostomy site. Endorses n v chills. Recently diagnosed w breast cancer has not started chemo radiation.; Reason: Other:; Epigastric pain; Clinical Question(s): Other:; Order Comment: TECHNIQUE: Spiral CT through the abdomen and pelvis with IV contrast formatted in 3 planes. 80 cc of Isovue 300 100cc vials was administered intravenously. This study was performed without oral contrast. Weight-based protocol using automatic tube modulation was used to optimize exposure parameters.CTDIvol Body: 6.56 mGy, DLP Body: 311 mGy*cm. COMPARISON: None. FINDINGS: Drama Director View Findings, Lines and Tubes: None. Visualized Chest: Bibasilar atelectasis. No pleural effusion. The heart is normal in size. No pericardial effusion. Diaphragm: Normal. Liver: Normal morphology and attenuation. No suspicious lesion. Gallbladder: Absent consistent with prior cholecystectomy. Bile ducts: Common bile duct measures 2 1.6 cm with tapering within the pancreatic head. Spleen: Normal. Pancreas: The pancreatic duct measures up to 5 mm. Adrenal glands: Normal. Kidneys and ureters: No hydronephrosis, stones, or suspicious masses. Bladder: Bladder is surgically absent with a ileal conduit terminating in the right lower quadrant. Reproductive organs: Status post hysterectomy. Stomach, small bowel, and large bowel: There is a left lower quadrant colostomy. Appendix: Normal. Peritoneum and retroperitoneum: No ascites or pneumoperitoneum. No omental or mesenteric lesions. Lymph nodes: No enlarged lymph nodes. Blood vessels: Normal. No aneurysm. No evidence of venous thrombosis. Abdominal and pelvic wall: Unremarkable. Bones: No acute abnormality. IMPRESSION: Dilated common bile duct and pancreatic duct is indicative of stricture in the region of the ampulla or mass. Recommend clinical correlation. No CT evidence of pancreatitis. WSN: [id number] Ordering Physician: Russell Bojorquez Dictated By: Azeb Calzada MD Dictated Date/Time: 07/30/25 11:30 a Reviewed By: Azeb Calzada MD Signed By: Azeb Calzada MD Signed Date/Time: 07/30/25 11:30 am Transcribed By: MARIA Transcribed Date/Time: 07/30/25 11:09 am Vital Signs Most recent to oldest [Reference Range]: 1 2 3 Height 153 cm (08/10/25 7:49 AM) 153 cm (08/09/25 7:41 PM) 153 cm (08/09/25 7:45 AM) Weight 48.5 kg (07/30/25 1:03 PM) 48.5 kg (07/29/25 10:34 PM) 48.5 kg (07/29/25 10:28 PM) Oxygen Saturation [94-100 %] 97 % (08/10/25 10:00 AM) 96 % (08/10/25 7:49 AM) 97 % (08/09/25 7:41 PM) Pulse Rate [55-90 bpm] 70 bpm (08/10/25 10:00 AM) 70 bpm (08/10/25 7:49 AM) 68 bpm (08/09/25 7:41 PM) Body Mass Index [18.5-24.99 kg/m2] 20.72 kg/m2 (07/30/25 1:03 PM) 20.72 kg/m2 (07/29/25 10:28 PM) Blood Pressure [90-138/55-84 mm Hg] 134/43mm Hg (08/10/25 10:00 AM) 94/54mm Hg (08/10/25 7:49 AM) 103/57mm Hg (08/09/25 7:41 PM) Respiratory Rate [16-30 br/min] 18 br/min (08/10/25 10:33 AM) 16 br/min (08/10/25 10:00 AM) 16 br/min (08/10/25 7:49 AM) Temperature [96.8-100.4 DegF] 98.6 DegF (08/10/25 10:00 AM) 98.5 DegF (08/10/25 7:49 AM) 97.9 DegF (08/09/25 7:41 PM) Mode of Delivery (Oxygen) Room air (08/10/25 10:00 AM) Room air (08/10/25 7:49 AM) Room air (08/09/25 7:41 PM) Blood pressure sites Arm, left (08/10/25 10:00 AM) Arm, left (08/10/25 7:49 AM) Arm, left (08/09/25 7:41 PM) Temperature Route Oral (08/10/25 10:00 AM) Oral (08/10/25 7:49 AM) Oral (08/09/25 7:41 PM) Dry Weight 48.5 kg (07/30/25 1:03 PM) 48.5 kg (07/29/25 10:34 PM) 48.5 kg (07/29/25 10:28 PM) Weight Obtained Via Patient/family state d (07/29/25 10:28 PM) Dry Weight Obtained Via Patient/family s tated (07/29/25 10:28 PM) Social History Social History Type Response Smoking Status Never (less than 100 in lifetime) entered on: 05/08/25 Sex Sex Representation Female (finding) Status Not Social Determinants of Health Assessment Assessment Assessment Component Result Effecti ve Date Unspecifed Social Determinants of Health Assessment Has lack of transpor tation kept you from medical appointments, meetings, work, or from getting things needed for daily living No 07/30/25 Have you or any fami ly members you live with been unable to get any of the following when it was really needed in past 1 year [PRAPARE] None 07/30/25 Are you worried abou t losing your housing [PRAPARE] No 07/30/25 Housing status I have housing 07/30/25 Within the last year , have you been afraid of your partner or ex-partner No 07/30/25 Do you feel physical ly and emotionally safe where you currently live [PRAPARE] Yes 07/30/25 How often do you see or talk to people that you care about and feel close to [PRAPARE] 1 or 2 times a week 07/30/25 History and physical note * Aries PAUL, Matheus: PERFORM Event Display: History and Physical Hospital Authored Date: [id number] Patient: ??JUJU BERNARD ? Age:??69 Years?Sex:??Female?:??1955?LOC:??[facility]?? Chief Complaint/Reason for Consultation see red cross abdomen pain History of Present Illness Patient is a 69 female with past medical history of A-fib on anticoagulation, SVT, history of pulmonary embolism, ?type 2 diabetes/gastroparesis , prior colectomy with colostomy due to? Chron's disease, bladder reconstruction for neurogenic bladder with urostomy, parastomal hernia, myofascial pain syndrome, COPD, depression, seizure disorder on Keppra, PNES/conversion disorder, PTSD, breast mass-newly diagnosed awaiting biopsy as outpatient .?? She was recently admitted in June for dysphagia/weight loss/odynophagia with longstanding history of esophageal motility issues and underwent endoscopy by GI team, found to have normal gastric mucosa, duodenal polyp removed via polypectomy and esophageal stricture was dilated, underwent cricopharyngeal bar oral endoscopic myotomy on 07/03 with postprocedural throat and chest pain.?? She presents today with??abdomen pain with??some nausea and vomiting for the past week, very poor historian and difficult to obtain good history??with multip le complaints.?? Pain??reported in the anal area with radiation to??have a bowel movement but??she has a colostomy, this has been ongoing for a long time. ??Reports pain??around the colostomy area??on the inside,??reports??not taking her medications for the past 5 to 6 days as she would vomit. ??No??vomiting since coming to the hospital.?? Reports some loose stools but??not??since morning. ??No chest pain or shortness of breath or palpitation. ??No??cough or runny nose or sore throat. ??No??confusion or headache or focal weakness or vision changes. ? Review of Systems All other review of systems were negative with the exception of those noted above in the HPI.?? Objective Measurements?? Height: 153 cm (07/30/25) Weight: 48.5 kg (07/30/25) Dry Weight: 48.5 kg (07/30/25) Body Mass Index: 20.72 kg/m2 (07/30/25) ? Vital Signs?? Temperature: 98 DegF (07/30/25 15:00:00) Temperature Route: Oral (07/30/25 15:00:00) Pulse Rate:??93 bpm??High (07/30/25 15:00:00) Respiratory Rate: 20 br/min (07/30/25 19:15:00) Systolic Blood Pressure: 103 mm Hg (07/30/25 15:00:00) Diastolic Blood Pressure: 71 mm Hg (07/30/25 15:00:00) Blood pressure sites: Arm, right (07/30/25 15:00:00) Mean Arterial Pressure: 82 mm Hg (07/30/25 13:03:00) Pulse Pressure: 32 mm Hg (07/30/25 13:03:00) Oxygen Saturation: 100 % (07/30/25 15:00:00) Mode of Delivery (Oxygen): Room air (07/30/25 15:00:00) Early Warning Score: 1 (07/30/25 19:15:48) ? Intake/Output? No Data Available ? Physical Exam Constitutional: Alert, in no acute distress. Head EENT: Extraocular muscle movement intact.??Moist mucous membranes.?? Neck: Supple. Respiratory: Clear to auscultation. No wheezing or crackles. No use of accessory muscles. Cardiovascular: S1S2 regular. No murmurs, rubs or gallops. Gastrointestinal: Abdomen soft, no rigidity or guarding but mild tenderness on palpation??diffusely, non-distended.?? Colostomy bag with some stool output noted, urostomy??bag noted. ??Normal bowel sounds. Genitourinary: No suprapubic tenderness Extremities: Trace edema bilaterally Neurologic: AAOx3, Speech normal. No focal neurological deficits. Skin: No gross??rash. Psychiatric: Anxious Assessment/Plan Diagnoses Abdominal pain ??(R10.9) GERD (gastroesophageal reflux disease) ??(K21.9) 1. ??Pain in the abdomen ??(R10.9) 2. ??Common bile duct dilatation ??(K83.8) 3. ??Pancreatic duct dilated ??(K86.89) 4. ??Afib ??(I48.91) 5. ??Anticoagulated on Eliquis ??(Z79.01) 6. ??History of colectomy ??(Z90.49) 7. ??Neurogenic bladder ??(N31.9) 8. ??History of colon cancer ??(Z85.038) 9. ??History of stomach cancer ??(Z85.028) 10. ??History of bladder cancer ??(Z85.51) 11. ??Family history of cancer ??(Z80.9) 12. ??Esophageal stricture ??(K22.2) 13. ??Colostomy present ??(Z93.3) 14. ??Dysphagia ??(R13.10) 14. ??Dysphagia ??(R13.10) 15. ??Esophageal dysmotility ??(K22.4) 16. ??History of DVT (deep vein thrombosis) ??(Z86.718) 17. ??Seizure disorder ??(G40.909) 18. ??History of pulmonary embolism ??(Z86.711) 19. ??Conversion disorder ??(F44.9) 20. ??Breast mass ??(N63.0) 21. ??Hypotension ??(I95.9) ?? Pain in the abdomen (R10.9) ?Associated with??Common bile duct dilatation (K83.8),??Pancreatic duct dilated (K86.89),??GERD (gastroesophageal reflux disease) (K21.9) ? Labs with normal white cell count of 4.1, hemoglobin 10.8, platelet count 278.??LFT unremarkable, kidney function unremarkable, lactate 1.7.??Troponin negative.??UA unremarkable.??She is afebrile with Tmax of 98.3 ?? CT abdomen pelvis with dilated common bile duct and pancreatic duct, indicative of stricture in theregion of ampulla or mass, no CT evidence of pancreatitis.??CT abdomen/pelvis a month ago was negative. ?? Chest x-ray without acute process ?? Plan - Trend LFTs -??GI consulted, recommending MRCP??protocol MRI abdomen and pelvis with and without contrast whichI ordered -??She has not taken her medications for 5 days, will give a dose of Lovenox tonight.??If no further procedure planned??tomorrow morning??can either restart Eliquis or??continue Lovenox ?? Afib (I48.91) ?Associated with??Anticoagulated on Eliquis (Z79.01) ? he has not taken her medications for 5 days, will give a dose of Lovenox tonight.??If no further procedure planned??tomorrow morning??can either restart Eliquis or??continue Lovenox ?? Esophageal stricture (K22.2) ?Associated with??Dysphagia (R13.10),??Esophageal dysmotility (K22.4) ? status post Cricopharyngeal peroral endoscopic myotomy-( 07/03)??on admission last month Dysphagia/odynophagia/esophageal stricture with history of dysmotility -Continue PPI ?? History of colon cancer (Z85.038) ?Associated with??History of colectomy (Z90.49),??History of stomach cancer (Z85.028),??History of bladder cancer (Z85.51),??Neurogenic bladder (N31.9),??Colostomy present (Z93.3),??Family history of cancer (Z80.9) ? She reports??multiple family members with cancer??and??reported personal history of coloncancer/stomach cancer/bladder cancer??for which she has received treatment at??[facility] and women [facility]??and some??procedures here at [facility]. -I reviewed all her pathology reports at [facility]??since 2008 of which??is positive for malignancy??either in colon or bladder??or??inflammatory bowel disease -??Day team can attempt to get records??from [facility] and women.??She also??reports that she has a breast mass for which she is??reportedly planning to see oncology for biopsy.??We need more collateral information??regarding her cancer diagnosis ?? Hypotension (I95.9):??Continue midodrine, fludrocortisone ?? History of DVT (deep vein thrombosis) (Z86.718) ?Associated with??History of pulmonary embolism (Z86.711) ? he has not taken her medications for 5 days, will give a dose of Lovenox tonight.??If no further procedure planned??tomorrow morning??can either restart Eliquis or??continue Lovenox ?? Seizure disorder (G40.909):??Continue Keppra ?? Conversion disorder (F44.9):?insomnia as neededReported history of PNES??but also on Keppra, outpatient follow-up with neurology Anxiety disorder, continue duloxetine, can use trazodone as needed for ?? Breast mass (N63.0):??Outpatient follow-up with oncology??as planned per patient's report ?? VTE Prophylaxis:??Lovenox tonight, further dosing to be determined based on procedure ?VTE Prophylaxis Assessment:??VTE Prophylaxis Ordered ?? Code Status:??Full code, confirmed with patient ? Histories Allergies Allergies ?(Active and Proposed Allergies Only) Fish? (Severity: Unknown severity, Onset: Unknown) cefpodoxime? (Severity: Unknown severity, Onset: Unknown) ?Comments: hives, feeling of throat swelling acetaminophen? (Severity: Unknown severity, Onset: Unknown) Motrin? (Severity: Unknown severity, Onset: Unknown) ?Comments: Vomiting, Nausea, Abdominal Pain nitrofurantoin? (Severity: Unknown severity, Onset: Unknown) penicillin? (Severity: Unknown severity, Onset: Unknown) ?Reactions: [...] Unknown severity, Onset: Unknown) ?Reactions: rash, n-v doxycycline? (Severity: Unknown severity, Onset: Unknown) [...] n-v ? Past Medical History/Problem List Active Problems(29) Abdominal pain Afib Anticoagulated on Eliquis Breast mass Chest pain Colostomy present Conversion disorder Dehydration Diarrhea Dysphagia Esophageal dysmotility GERD (gastroesophageal reflux disease) History of DVT (deep vein thrombosis) History of pulmonary embolism Hypokalemia Major depression Myofascial pain syndrome Narcotic dependence, opiate seeking behavior Nausea and vomiting NO h/o CVA by MRI Pain in pelvis Parastomal hernia Pseudoseizures PTSD (post-traumatic stress disorder) Rapid gastric emptying Seizure disorder Status post ileal conduit SVT - Supraventricular tachycardia UTI symptoms ? Past Surgical History Esophagogastroduodenoscopy and biopsy: 12/15/21 Endoscopic retrograde cholangiopancreatography (ERCP); with sphincterotomy/papillotomy: 04/16/20 Exploratory laparotomy, lysis of adhesions, repair of small bowel enterotomy and partial mesh excision: 08/31/11 Laparoscopic lysis of adhesions and repair of recurrent parastomal hernia with mesh: 08/24/11 Proctectomy Colectomy total colectomy bladder surgery for prolapse hysterectomy ? Social History Alcohol Details:??Use: Never. Details:??Use: Never. Exercise Details:??Self assessment: Poor condition. Home/Environment Details:??Living situation: Home/Independent. ??Lives with: Grand daughter and 6 great grand children. Details:??Living situation: Home with assistance. ??Lives with: Sister and Brother in Law . Nutrition/Health Details:??Diet: Gluten free. Substance Abuse Details:??Use: Never. Details:??Use: Never. Tobacco Details:??Use: Never (less than 100 in lifetime). Details:??Use: Never (less than 100 in lifetime). Details:??Use: Never (less than 100 in lifetime). ??Smokeless tobacco use: Never. Electronic Cigarette/Vaping Details:??Electronic Cigarette Use: Never. Details:??Electronic Cigarette Use: Never. ? Family History Mother: Bladder; CAD - Coronary artery disease; Stroke Father: Cancer of lung; Stomach Sister: Cancer of lung; Stomach Brother: AIDS Aunt: Cancer of breast ? Medications Home Medications Albuterol (ProAir HFA 90 mcg/inh inhalation aerosol with adapter)??1 puff(s) Inhalation Every 6 hours as needed for wheezing apixaban (Eliquis 5 mg oral tablet)??1 tab(s) 5 Milligram By Mouth 2 times a day Cholecalciferol (cholecalciferol 1000 intl units oral tablet)??1 tab(s) 25 Microgram By Mouth Daily Cholestyramine (cholestyramine 4 g/5.5 g oral powder for reconstitution)??4 gram By Mouth Daily Cyanocobalamin (Vitamin B-12 1000 mcg oral tablet)??1,000 Microgram 1 tablet By Mouth Daily Dicyclomine (dicyclomine 20 mg oral tablet)??1 tab(s) 20 Milligram By Mouth 4 times a day as neededSpasm for 30 Days Duloxetine (duloxetine 60 mg oral enteric coated capsule)??1 capsule 60 Milligram By Mouth Daily Durable Medical Equipment (Walker)??See Instructions Use with ambulation Fludrocortisone (fludrocortisone 0.1 mg oral tablet)??0.2 Milligram By Mouth Daily in AM Fluticasone-Salmeterol (fluticasone-salmeterol 115 mcg-21 mcg inhalation aerosol with adapter)??2 inhalation Inhalation 2 times a day rinse mouth and throat after use levETIRAcetam (levETIRAcetam 750 mg oral tablet)??1 tab(s) 750 Milligram By Mouth 2 times a day for30 Days Levothyroxine (levothyroxine 0.05 mg oral tablet)??1 tab(s) 50 Microgram By Mouth Daily Lidocaine Topical (lidocaine 2.5% topical liquid)??See Instructions as needed Other By Mouth Every 4 hours Loperamide (loperamide 2 mg oral capsule)??4 Milligram By Mouth 3 times a day Can take additional 4mg if output greater than 1.5 L in 24 hours. (Do not exceed more than 16 mg in a day) If colostomy output decreases, hold dose. Midodrine (midodrine 10 mg oral tablet)??1 tab(s) 10 Milligram By Mouth 3 times a day Multivitamin (multivitamin Multiple Vitamins oral tablet)??1 tab(s) By Mouth Daily nalOXONE (Narcan 4 mg/0.1 mL nasal spray)??1 spray(s) 4 Milligram Naris, Left Once as needed Other To reverse opioid overdose as needed; Use one spray in one nostril. if an additional dose is needed,alternate nostril; May repeat every 2 to 3 minutes until patient responds Omeprazole (omeprazole 40 mg oral enteric coated capsule)??1 capsule 40 Milligram By Mouth Daily 30-40 mins before breakfast Thiamine (thiamine 100 mg oral tablet)??100 Milligram 1 tablet By Mouth Daily for 10 Days Trazodone (traZODone 50 mg oral tablet)??50 Milligram 1 tablet By Mouth Daily at bedtime as needed Sleep ? Inpatient Medications Medications (18) Active SCHEDULED: (11) Budesonide-Formoterol 80 mcg-4.5 mcg Inhaler (Symbicort 80mcg-4.5mcg Inhaler) ??2 puffs, Inhalation, 2 times a day Duloxetine 60 mg Capsule (Cymbalta 60 mg oral enteric coated capsule) ??60 mg, By Mouth, Daily Enoxaparin 60 mg Inj (Enoxaparin Inj) ??50 mg 0.5 mL, Subcutaneous Injection, Once Fludrocortisone 0.1 mg Tablet (fludrocortisone 0.1 mg oral tablet) ??0.2 mg, By Mouth, Daily in AM Lansoprazole 30 mg OD Tablet (Lansoprazole OD Tablet) ??30 mg, By Mouth, Daily Levetiracetam 250 mg Tablet (levETIRAcetam 750 mg oral tablet) ??750 mg, By Mouth, 2 times a day Levothyroxine 25 mcg Tablet (levothyroxine 0.025 mg oral tablet) ??50 mcg, By Mouth, Daily Midodrine 5 mg Tablet (midodrine 5 mg oral tablet) ??10 mg, By Mouth, 3 times a day NaCl 0.9% Flush 3ml (NaCL 0.9% Flush) ??3 mL, IV Push, Every 8 hours Thiamine 100 mg Tablet (thiamine 100 mg oral tablet) ??100 mg, By Mouth, Daily Vitamin B-12 ??1000 mcg Tablet (Vitamin B-12 1000 mcg oral tablet) ??1,000 mcg, By Mouth, Daily CONTINUOUS: (0) PRN: (7) Albuterol 90mcg/Inhalation Inhaler HFA (Ventolin 90 mcg Inhaler) ??90 mcg 1 puffs, Inhalation, Every 4 hours Dicyclomine 10 mg Capsule (dicyclomine 10 mg oral capsule) ??20 mg 2 capsule, By Mouth, 4 times a day HYDROmorphone 1 mg/mL Inj Syringe (Dilaudid Inj) ??1 mg 1 mL, IV Push Slowly, Every 4 hours Melatonin 3 mg Tablet (Melatonin Tablet) ??3 mg, By Mouth, Daily at bedtime NaCl 0.9% Flush 3ml (NaCL 0.9% Flush) ??3 mL, IV Push, Every 8 hours Polyethylene Glycol 17 Gm Powder (MiraLax Powder) ??17 Gm 1 pack/packet, By Mouth, Daily Senna Tablet ??8.6 mg 1 tablet, By Mouth, 2 times a day ? Results Recent Labs BLOOD COUNT & DIFF WBC 4.1 k/mm3 ()?? 07/30/2025 09:50 RBC 3.51 m/mm3 (Low)?? 07/30/2025 09:50 Hgb 10.8 Gm/dL (Low)?? 07/30/2025 09:50 Hct 33.5 % (Low)?? 07/30/2025 09:50 MCV 95.4 femtoliters ()?? 07/30/2025 09:50 MCH 30.8 pg ()?? 07/30/2025 09:50 MCHC 32.2 Gm/dL (Low)?? 07/30/2025 09:50 Platelet Count 278 k/mm3 ()?? 07/30/2025 09:50 RDW-SD 45.6 femtoliters ()?? 07/30/2025 09:50 MPV 9.5 femtoliters ()?? 07/30/2025 09:50 Nucleated RBC (Automated) 0.0 #/100 WBC'S ()?? 07/30/2025 09:50 Abs. NRBC 0.0 k/mm3 ()?? 07/30/2025 09:50 Abs. Neut 1.8 k/mm3 ()?? 07/30/2025 09:50 Abs. Lymph 1.5 k/mm3 ()?? 07/30/2025 09:50 Abs. [place] 0.4 k/mm3 ()?? 07/30/2025 09:50 Abs. Eo 0.3 k/mm3 ()?? 07/30/2025 09:50 Abs. Baso 0.0 k/mm3 ()?? 07/30/2025 09:50 Neut % 43.6 % (Low)?? 07/30/2025 09:50 Lymph % 37.7 % ()?? 07/30/2025 09:50 [place] % 10.0 % ()?? 07/30/2025 09:50 Eos % 7.8 % (High)?? 07/30/2025 09:50 Baso % 0.7 % ()?? 07/30/2025 09:50 Imm Gran 0.2 % ()?? 07/30/2025 09:50 Abs. Imm Gran 0.0 k/mm3 ()?? 07/30/2025 09:50 ?? CARDIAC High Sensitivity Troponin (HSTnT) <6 ng/L () 07/30/2025 09:50 ?? CHEM GENERAL Sodium 134 mmol/L ()?? 07/30/2025 09:50 Potassium 3.8 mmol/L ()?? 07/30/2025 09:50 Chloride 107 mmol/L ()?? 07/30/2025 09:50 Bicarbonate Level 17 mmol/L (Low)?? 07/30/2025 09:50 Anion Gap 10 mmol/L ()?? 07/30/2025 09:50 Glucose Level 85 mg/dL ()?? 07/30/2025 09:50 BUN 22 mg/dL ()?? 07/30/2025 09:50 Creatinine-Blood 0.44 mg/dL (Low)?? 07/30/2025 09:50 Estimated GFR Creatinine 105 ML/MIN/1.73 M2 ()?? 07/30/2025 09:50 Calcium 9.3 mg/dL ()?? 07/30/2025 09:50 Protein, Total 6.9 Gm/dL ()?? 07/30/2025 09:50 Albumin 4.0 Gm/dL ()?? 07/30/2025 09:50 AG Ratio 1.4 ()?? 07/30/2025 09:50 Alkaline Phosphatase 79 units/L ()?? 07/30/2025 09:50 Lipase, Serum/Plasma 15 units/L ()?? 07/30/2025 09:50 AST (SGOT) 12 units/L ()?? 07/30/2025 09:50 ALT (SGPT) 8 units/L ()?? 07/30/2025 09:50 Bilirubin, Total 0.3 mg/dL ()?? 07/30/2025 09:50 Lactate 1.7 mmol/L ()?? 07/30/2025 09:50 ?? UA/URINALYSIS Appear/Color, Urine LIGHT YELLOW ()?? 07/30/2025 01:28 Specific [place], Urine 1.012 ()?? 07/30/2025 01:28 pH, Urine 6.5 ()?? 07/30/2025 01:28 Albumin, Urine NEGATIVE ()?? 07/30/2025 01:28 Glucose, Urine NEGATIVE ()?? 07/30/2025 01:28 Ketones, Urine NEGATIVE ()?? 07/30/2025 01:28 Bilirubin, Urine NEGATIVE ()?? 07/30/2025 01:28 Hemoglobin, Urine NEGATIVE ()?? 07/30/2025 01:28 Nitrite, Urine NEGATIVE ()?? 07/30/2025 01:28 Leukocyte, Urine NEGATIVE ()?? 07/30/2025 01:28 Urobilinogen NORMAL mg/dL ()?? 07/30/2025 01:28 WBC's, Urine 1 /HPF ()?? 07/30/2025 01:28 RBC's, Urine <1 /HPF () 07/30/2025 01:28 Bacteria SLIGHT HPF (Abnormal)?? 07/30/2025 01:28 Amorphous Crystals SLIGHT /HPF ()?? 07/30/2025 01:28 Mucus SLIGHT /LPF ()?? 07/30/2025 01:28 Hold Urine Culture Testing available 48 hours from time of collection. ()?? 07/30/2025 01:28 ?? URINE OTHER Est Creatinine Clearance 88.95 mL/min ()?? 07/30/2025 10:50 ? Electronically Signed on 07/30/25 07:53 PM Aries PAUL, Matheus EKG study * Event Display: EKG Authored Date: * Event Display: ECG 12-Lead Authored Date: Please click on pdf link to open report * Event Display: ECG 12-Lead Authored Date: Ventricular Rate: 82 BPM Atrial Rate: 82 BPM P-R Interval: 116 ms QRS Duration: 82 ms Q-T Interval: 366 ms QTC Calculation(Bazett): 427 ms P [place]: 31 degrees R [place]: -56 degrees T [place]: 56 degrees Normal sinus rhythm Left axis deviation Abnormal ECG When compared with ECG of 04-Jul-2025 13:26, No significant change was found Confirmed by SYLVESTER BERMUDEZ MD ([id number]) on 07/30/2025 9:34:45 AM [place]: LARA PAULSYLVESTER [facility] Progress note * Nav SANTOS, Adrianne Doran: PERFORM, SIGN, VERIFY Event Display: Progress Note [facility] Authored Date: Patient: JUJU BERNARD Age: 69 years Sex: Female : 1955 Associated Diagnoses: None Author: Nav SANTOS, Adrianne Doran Findings Problem Related to Alteration in Comfort : Alteration in Comfort/new 08/10/2025 2:00 EST Alteration in Comfort Related to Disease process, Other: abdominal pain Goals & Outcomes: Comfort Pt will report acceptable level of comfort & pain control, Pt will state importance of adhering to pain strategy regime, Pt will demonstrate necessary skills to manage pain, Non-verbal indicators will indicate comfort/pain control Interventions Implemented: Comfort Assess pain using appropriate pain scale/tools, Assess aggravating factors & prevent them accordingly Goals/Interventions, Comfort Yes Comfort, Problem Start 08/01/2025 1:40 Reviewed plan with, Comfort Patient Patient Progression, Comfort Pt progressing according to plan Comfort, Problem Ongoing Yes . Nursing Data Cardiac Data. : Cardiac Data. 08/09/2025 21:00 EST Nail Bed Color, Fingers [place] Nail Bed Color, Toes [place] Skin Temperature Upper Extremities Warm Skin Temperature Lower Extremities Warm Homans' Sign Negative (Normal) Edema Dependent Ankle, left 1+ trace Ankle, right 1+ trace site monitor No Cardiovascular WNL except . Gastrointestinal Data. : Gastrointestinal Data. 08/09/2025 21:00 EST Abdomen Non-tender, Semi-firm Bowel Sounds LUQ Present Bowel Sounds RUQ Present Bowel Sounds LLQ Present Bowel Sounds RLQ Present Stool color and description Fluffy, mushy GI WNL except Normal Bowel Pattern Daily . Genitourinary Data. : Genitourinary Data. 08/09/2025 21:00 EST Urinary catheter type Urostomy tube Urine Color Yellow WNL except . Neurological Data. : Neurological Data. 08/09/2025 21:00 EST Tongue Disposition Midline Level of Consciousness Full Consciousness Orientated to person, place, time Person, Place, Time, Event Facial Symmetry Intact Characteristics of Speech Clear and normal Swallowing Difficulty Pills, Solids Strength LUE 5-Active movement against gravity & full resistance Strength RUE 5-Active movement against gravity & full resistance Strength LLE 5-Active movement against gravity & full resistance Strength RLE 5-Active movement against gravity & full resistance Tone LUE Normal Tone RUE Normal Tone LLE Normal Tone RLE Normal Sensation LUE Intact Sensation RUE Intact Sensation LLE Intact Sensation RLE Intact Movement LUE Spontaneous Movement RUE Spontaneous Movement LLE Spontaneous Movement RLE Spontaneous Response Eye Opening Spontaneously Motor Response-Adult Obeys commands Verbal Response-Adult Oriented and converses Maddy Coma Score 15 Neuro WNL except Memory Intact Swallow - Neuro Normal . Respiratory/Pulmonary Data. : Respiratory/Pulmonary Data. 08/09/2025 21:00 EST Respiratory effort Unlabored Chest expansion Symmetrical Cough Non-productive, Occasional Left Upper Lobe Breath Sounds Clear Right Upper Lobe Breath Sounds Clear Right Middle Lobe Breath Sounds Clear Left Lower Lobe Breath Sounds Diminished Right Lower Lobe Breath Sounds Diminished Respiratory Treatment(s) Cough and deep breathe Respiratory WNL except . Vital Signs : VITAL SIGNS SECTION 08/09/2025 19:41 EST Temperature 97.9 DegF Temperature Route Oral Pulse Rate 68 bpm Respiratory Rate 18 br/min Systolic Blood Pressure 103 mm Hg Diastolic Blood Pressure 57 mm Hg Blood pressure sites Arm, left Mean Arterial Pressure 72 mm Hg Pulse Pressure 46 mm Hg Oxygen Saturation 97 % Mode of Delivery (Oxygen) Room air . Narrative/Incidental P: Alt in Comfort I as per NCP E: Pt. is a/o/3, vss--see cis, taking meds in applesauce. LS cta. rr unlabored on RA. Abd. pos bs x4/tender per pt. pain is rated 8-9/10--, medicated pt. w/prn dilaudid w/pos effect. Colostomy in place as well as urostomy. No c/o n/v overnight. Bilat. lower ext. edema/pp palp. See biophysical for add. details. Purposeful hourly rounding completed. See biophysical for add. details. . Electronically Signed on 08/10/25 02:47 AM Nav SANTOS, Adrianne Dean. * Kaylyn SANTOS, Isabel: PERFORM, SIGN, VERIFY Event Display: Progress Note Hospital Authored Date: [id number] Patient: JUJU BERNARD Age: 69 years Sex: Female : 1955 Associated Diagnoses: None Author: Kaylyn SANTOS, Isabel Findings Evaluation pt AOx4, pleasant and compliant with care. has chronic pain disorder, had scheduled dilaudid which provider Jacqueline d/c'd this shift. pt still has order for prn dilaudid. provider also ordered acute pain service consult, is pending. clear on RA. pt has L-sided implanted portacath with LR running at100 mL/hr continuous. she reported pain and itching from the dressing, states she suspects she's allergic to adhesive. provider Jacqueline notified, ordered prn benadryl and wound team consult. clean catchurine sample pending. has history of difficult intubation/DART. has colostomy and urostomy - pt able to independently manage both. no acute events this shift. hourly rounds performed, pt safety mainta juliano.. Discharge Information Case Management Discharge Plan : Case Management Discharge Plan Data 08/03/2025 10:31 EST Discharge VNA/Hospice/Home Care [facility] [phone] Electronically Signed on 08/09/25 06:55 PM Kaylyn SANTOS, Isabel * Jacqueline PAUL, Cristóbal Hyde: PERFORM, MODIFY, MODIFY, MODIFY Event Display: Progress Note Hospital Authored Date: [id number] Patient: ??JUJU BERNARD ? Age:??69 Years?Sex:??Female?:??1955?LOC:??[facility]?? Subjective Seen and examined No new events ?? Hospital course reviewed ?? Review of Systems Constitutional: No fever or chills. ENT: No sore throat or nasal congestion. Respiratory: No shortness of breath or cough??. Cardiovascular: No chest pain or??palpitation. Gastrointestinal: No nausea, vomiting or diarrhea. continued abd pain Skin: No rash or lesion Neurology: No speech problem no vision problem no focal weakness, no dizziness. Psychiatric: Cooperative, normal mood and affect Objective ?? Physical Exam Awake, alert, oriented Lungs: Clear to auscultation bilateral, no wheezing no rales Heart: Regular rate and rhythm, no murmur, no rub or gallop Abdomen: Soft, tender, nondistended; Bowel sounds present Extremity: No edema cyanosis clubbing Neurological: No focal deficit Psychiatric: Normal mood and affect Assessment/Plan Assessment:??69 y/o??female with past medical history of A-fib on anticoagulation, SVT, history of pulmonary embolism, ?type 2 diabetes/gastroparesis , prior colectomy with colostomy due to?Chron's disease, bladder reconstruction for neurogenic bladder with urostomy, parastomal hernia, myofascial pain syndrome, COPD, depression, seizure disorder/ PNES/conversion disorder, PTSD, breast mass-newly diagnosed; recently admitted in June for dysphagia/weight loss/odynophagia with longstanding history of esophageal motility issues??that presented??with??abdomen pain with??some nausea and vomiting for the past week. ? Pain in the abdomen (R10.9) Common bile duct dilatation (K83.8) Pancreatic duct dilated (K86.89) GERD (gastroesophageal reflux disease) (K21.9) CT abdomen pelvis with dilated common bile duct and pancreatic duct, indicative of stricture in theregion of ampulla or mass, no CT evidence of pancreatitis.??CT abdomen/pelvis a month ago was negative. Chest x-ray without acute process. GI consulted, recommended further evaluation with MRI/MRCP. MCRP showed mildly dilated CBD with tapering into the ampulla; suggestive of Sphincter of Oddi dysfunction; previous provider discussed briefly with GI fellow unlikely to provider intervention. Labs showed??LFT unremarkable, kidney function unremarkable, lactate 1.7.??Troponin negative.??UA unremarkable.? Per GI not having typical biliary pain, has had prior biliary sphincterotomy. Etiology of discomfort unclear, though she has history of multiple abdominal surgeries with significant adhesions.??Thereis no evidence for??choledocholithiasis or??overt??masses and the??biductal dilatation appears??to??be reduced from previous scans Plan: - Continue with supportive management - PO dilaudid 4 mg q4 prn - Start scheduled Bentyl TID - Repeat CT abd/pelvis - Appreciate dietary input, ONS w/ meals - Repleting electrolytes as needed ? Esophageal stricture (K22.2) Dysphagia (R13.10) Esophageal dysmotility (K22.4) Status post Cricopharyngeal peroral endoscopic myotomy-( 07/03)??on admission last month. Dysphagia/odynophagia/esophageal stricture with history of dysmotility Barium esophagram showing a distal esophageal stricture causing partial obstruction - Continue PPI - GI reconsulted, appreciate recommendations - Outpatient manometry ? 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 Continue Eliquis 5mg BID Hypotension (I95.9):??Continue midodrine, fludrocortisone History of DVT (deep vein thrombosis) (Z86.718)/History of pulmonary embolism (Z86.711):??Eliquis 5mg BID Seizure disorder (G40.909):??Continue Keppra Conversion disorder (F44.9):?Reported history of PNES??but also on Keppra, outpatient follow-up with neurology. Anxiety disorder, continue duloxetine, can use trazodone as needed for Breast mass (N63.0):??Outpatient follow-up with oncology??as planned per patient's report History of colon cancer (Z85.038), History of colectomy (Z90.49),??History of stomach cancer (Z85.028),??History of bladder cancer (Z85.51),??Neurogenic bladder (N31.9),??Colostomy present (Z93.3),??Family history of cancer (Z80.9):??Stable, outpatient follow up ? Diet: Dental Soft ?? DVT prophylaxis: On Eliquis ?? Code status: Full Code ?? OMN: pain management, PT eval ?? Disposition: Likely d/c am home with services ?Concern for UTI c/o dysuria UA on 08/06 suggestive of UTI no antibiotic was started and no cs sent Can not add on CS ?? Plan: Will repeat UA and CS if suggestive of UTI, will start antibiotic ?Requested APS consult ?? Electronically Signed on 08/09/25 11:53 AM Cristóbal Phillips MD Electronically Signed on 08/09/25 11:58 AM Cristóbal Phillips MD Electronically Signed on 08/10/25 07:39 AM Cristóbal Phillips MD Electronically Signed on 08/10/25 07:40 AM Cristóbal Phillips MD Note * Belkis SANTOS Frances: PERFORM Event Display: Discharge/Transfer Note Hospital Authored Date: [id number] Nursing Discharge Note Entered On: 08/10/2025 10:26 EST Performed On: 08/10/2025 10:26 EST by Frances Tamayo RN Nursing Discharge Note 2 Discharge Time : 08/10/2025 11:23 EST Frances Tamayo RN - 08/10/2025 18:05 EST Discharge Level of Care at Discharge : Homehealth/VNA Discharge VNA/Hospice/Home Care([id number]) : [facility] [phone] Patient Left Unit Via : Ambulance Patient Accompanied Off Unit with : Ambulance/Chair Van Personnel Handover Given to Transport Personnel : Yes DC Instructions Provided & Signed by Pt : No Patient Understands D/C Instructions : Yes Patient Instructions Discharge Signed : No Did Pt have Specialty Bed or Wound Vac : No Belkis SANTOS Frances - 08/10/2025 10:26 EST Electronically Signed on 08/10/25 10:26 AM Frances Tamayo RN Electronically Signed on 08/10/25 06:05 PM Frances Tamayo RN * Cheryl Red: PERFORM Event Display: Discharge/Transfer Note Hospital Authored Date: [id number] Patient: ??JUJU BERNARD ? Age:??69 Years?Sex:??Female?:??1955?LOC:??[facility]?? Patient Information Discharge Location: [facility] Primary Care Physician: Era Moser Admit Date/Time: 07/30/2025 11:57 Discharge Date:??08/10/2025 09:01 Discharge Disposition Discharge Disposition: Home with Home Health Discharge Diagnosis Pain in the abdomen (R10.9) Common bile duct dilatation (K83.8) Pancreatic duct dilated (K86.89) Afib (I48.91) Anticoagulated on Eliquis (Z79.01) History of colectomy (Z90.49) Neurogenic bladder (N31.9) History of colon cancer (Z85.038) History of stomach cancer (Z85.028) History of bladder cancer (Z85.51) Family history of cancer (Z80.9) Esophageal stricture (K22.2) Colostomy present (Z93.3) Dysphagia (R13.10) Dysphagia (R13.10) Esophageal dysmotility (K22.4) History of DVT (deep vein thrombosis) (Z86.718) Seizure disorder (G40.909) History of pulmonary embolism (Z86.711) Conversion disorder (F44.9) Breast mass (N63.0) Hypotension (I95.9) Abdominal pain (R10.9) GERD (gastroesophageal reflux disease) (K21.9) _ Discharge Medications Albuterol (ProAir HFA 90 mcg/inh inhalation aerosol with adapter)??1 puff(s) Inhalation Every 6 hours as needed for wheezing apixaban (Eliquis 5 mg oral tablet)??1 tab(s) 5 Milligram By Mouth 2 times a day Cholecalciferol (cholecalciferol 1000 intl units oral tablet)??1 tab(s) 25 Microgram By Mouth Daily Cholestyramine (cholestyramine 4 g/5.5 g oral powder for reconstitution)??4 gram By Mouth Daily Cyanocobalamin (Vitamin B-12 1000 mcg oral tablet)??1,000 Microgram 1 tablet By Mouth Daily Dicyclomine (dicyclomine 10 mg oral capsule)??2 capsule 20 Milligram By Mouth 3 times a day Duloxetine (duloxetine 60 mg oral enteric coated capsule)??1 capsule 60 Milligram By Mouth Daily Fludrocortisone (fludrocortisone 0.1 mg oral tablet)??0.2 Milligram By Mouth Daily in AM Fluticasone-Salmeterol (fluticasone-salmeterol 115 mcg-21 mcg inhalation aerosol with adapter)??2 inhalation Inhalation 2 times a day rinse mouth and throat after use Hydromorphone (Dilaudid 4 mg oral tablet)??4 Milligram By Mouth Every 6 hours as needed Pain , Severe for 3 Days levETIRAcetam (levETIRAcetam 750 mg oral tablet)??1 tab(s) 750 Milligram By Mouth 2 times a day for30 Days Levothyroxine (levothyroxine 0.05 mg oral tablet)??1 tab(s) 50 Microgram By Mouth Daily Lidocaine Topical (lidocaine 2.5% topical liquid)??See Instructions as needed Other By Mouth Every 4 hours Loperamide (loperamide 2 mg oral capsule)??4 Milligram By Mouth 3 times a day Can take additional 4mg if output greater than 1.5 L in 24 hours. (Do not exceed more than 16 mg in a day) If colostomy output decreases, hold dose. Midodrine (midodrine 10 mg oral tablet)??1 tab(s) 10 Milligram By Mouth 3 times a day Multivitamin (multivitamin Multiple Vitamins oral tablet)??1 tab(s) By Mouth Daily nalOXONE (Narcan 4 mg/0.1 mL nasal spray)??1 spray(s) 4 Milligram Naris, Left Once as needed Other To reverse opioid overdose as needed; Use one spray in one nostril. if an additional dose is needed,alternate nostril; May repeat every 2 to 3 minutes until patient responds Omeprazole (omeprazole 40 mg oral enteric coated capsule)??1 capsule 40 Milligram By Mouth Daily 30-40 mins before breakfast Thiamine (thiamine 100 mg oral tablet)??100 Milligram 1 tablet By Mouth Daily for 10 Days Trazodone (traZODone 50 mg oral tablet)??50 Milligram 1 tablet By Mouth Daily at bedtime as needed Sleep Discharge Medications New Hydromorphone (Dilaudid 4 mg oral tablet)4 Milligram Oral every 6 hours as needed Pain , Severe for3 Days. Refills: 0. Changed Dicyclomine (dicyclomine 10 mg oral capsule)2 capsule Oral 3 times a day. Refills: 0. Unchanged Albuterol (ProAir HFA 90 mcg/inh inhalation aerosol with adapter)1 puff(s) Inhalation every 6 hoursas needed for wheezing. apixaban (Eliquis 5 mg oral tablet)1 tab(s) Oral twice a day. Refills: 0. Cholecalciferol (cholecalciferol 1000 intl units oral tablet)1 tab(s) Oral Daily. Refills: 0. Cholestyramine (cholestyramine 4 g/5.5 g oral powder for reconstitution)4 gram Oral Daily. Refills:0. Cyanocobalamin (Vitamin B-12 1000 mcg oral tablet)1 tab(s) Oral Daily. Duloxetine (duloxetine 60 mg oral enteric coated capsule)1 capsule Oral Daily. Fludrocortisone (fludrocortisone 0.1 mg oral tablet)0.2 Milligram Oral Daily in the morning. Refills: 0. Fluticasone-Salmeterol (fluticasone-salmeterol 115 mcg-21 mcg inhalation aerosol with adapter)2 inhalation Inhalation twice a day. rinse mouth and throat after use. levETIRAcetam (levETIRAcetam 750 mg oral tablet)1 tab(s) Oral twice a day for 30 Days. Refills: 2. Levothyroxine (levothyroxine 0.05 mg oral tablet)1 tab(s) Oral Daily. Lidocaine Topical (lidocaine 2.5% topical liquid)By Mouth Every 4 hours; as needed Other. Refills: 0. Loperamide (loperamide 2 mg oral capsule)4 Milligram Oral 3 times a day. Can take additional 4 mg if output greater than 1.5 L in 24 hours. (Do not exceed more than 16 mg in a day) If colostomy output decreases, hold dose.. Refills: 0. Midodrine (midodrine 10 mg oral tablet)1 tab(s) Oral 3 times a day. Refills: 0. Multivitamin (multivitamin Multiple Vitamins oral tablet)1 tab(s) Oral Daily. Refills: 0. nalOXONE (Narcan 4 mg/0.1 mL nasal spray)1 spray(s) Naris, Left once as needed Other. To reverse opioid overdose as needed; Use one spray in one nostril. if an additional dose is needed, alternate nostril; May repeat every 2 to 3 minutes until patient responds. Refills: 0. Omeprazole (omeprazole 40 mg oral enteric coated capsule)1 capsule Oral Daily. 30-40 mins before breakfast. Refills: 4. Thiamine (thiamine 100 mg oral tablet)1 tab(s) Oral Daily for 10 Days. Trazodone (traZODone 50 mg oral tablet)1 tab(s) Oral Daily at Bedtime as needed Sleep. Discontinued Durable Medical Equipment (Walker)Use with ambulation. Refills: 0. Oxycodone (oxyCODONE 5 mg/5 mL oral solution)5 Milliliter. TAKE 5 ML BY MOUTH EVERY 6 HOURS NEEDED FOR PAIN. START AFTER 3 DAYS OF OTHER PRESCRIPTION. Allergies Allergies ?(Active and Proposed Allergies Only) Fish? (Severity: Unknown severity, Onset: Unknown) cefpodoxime? (Severity: Unknown severity, Onset: Unknown) ?Comments: hives, feeling of throat swelling acetaminophen? (Severity: Unknown severity, Onset: Unknown) Motrin? (Severity: Unknown severity, Onset: Unknown) ?Comments: Vomiting, Nausea, Abdominal Pain nitrofurantoin? (Severity: Unknown severity, Onset: Unknown) penicillin? (Severity: Unknown severity, Onset: Unknown) ?Reactions: [...] Unknown severity, Onset: Unknown) ?Reactions: rash, n-v doxycycline? (Severity: Unknown severity, Onset: Unknown) [...] severity, Onset: Unknown) ?Reactions: rash, n-v ? PCP Follow-Up/Heads-Up Patient has recurrent admissions for unexplained abdominal pain, requiring narcotics. Was discharged with a 3 day prescription but would benefit from outpatient pain management to prevent recurrent hospitalizations Needs GI follow up for outpatient manometry Future Appointments Sunday 3:00 PM EST ?? Type: US Core Biopsy Where: [facility] Radiology [facility] [place] [address], [address] [place] [address]- Status: Pending 2024 4:15 PM EST ?? Type: SN - Endoscopy Where: [facility] Status: Pending Hospital Course Ms. Bernard is a 69 y/o female with past medical history of A-fib on anticoagulation, SVT, historyof pulmonary embolism, ?type 2 diabetes/gastroparesis , prior colectomy with colostomy due to ? Chron's disease, bladder reconstruction for neurogenic bladder with urostomy, parastomal hernia, myofascial pain syndrome, COPD, depression, seizure disorder/ PNES/conversion disorder, PTSD, breast mass-newly diagnosed; recently admitted in June for dysphagia/weight loss/odynophagia with longstanding history of esophageal motility issues that presented with abdomen pain with some nausea and vomiting for the past week. Her work up was largely unremarkable including CT abd, MRI abd. She did have aesophagram showing distal stricture however was seen by GI and given her prior dilations with no improvement in her symptoms, decision was made to proceed with outpatient manometry. On the day of discharge, her pain appears to be well controlled, she is tolerating a diet and is very eager to be discharged home. At this time, she is safe and stable for discharge with close and appropriate follow up care. ?? See below for problem focused plan: Objective Pain in the abdomen (R10.9) Common bile duct dilatation (K83.8) Pancreatic duct dilated (K86.89) GERD (gastroesophageal reflux disease) (K21.9) CT abdomen pelvis with dilated common bile duct and pancreatic duct, indicative of stricture in theregion of ampulla or mass, no CT evidence of pancreatitis.??CT abdomen/pelvis a month ago was negative. Chest x-ray without acute process. GI consulted, recommended further evaluation with MRI/MRCP. MCRP showed mildly dilated CBD with tapering into the ampulla; suggestive of Sphincter of Oddi dysfunction; previous provider discussed briefly with GI fellow unlikely to provider intervention. Labs showed??LFT unremarkable, kidney function unremarkable, lactate 1.7.??Troponin negative.??UA unremarkable.? Per GI not having typical biliary pain, has had prior biliary sphincterotomy. Etiology of discomfort unclear, though she has history of multiple abdominal surgeries with significant adhesions. There is no evidence for??choledocholithiasis or??overt??masses and the??biductal dilatation appears??to??be reduced from previous scans Repeat CT abd/pelvis nonacute - Continue with supportive management - PO dilaudid 4 mg q6h PRN - needs f/u with PCP re: pain management - Started scheduled Bentyl TID - Appreciate dietary input, ONS w/ meals ? Esophageal stricture (K22.2) Dysphagia (R13.10) Esophageal dysmotility (K22.4) Status post Cricopharyngeal peroral endoscopic myotomy-( 07/03)??on admission last month. Dysphagia/odynophagia/esophageal stricture with history of dysmotility Barium esophagram showing a distal esophageal stricture causing partial obstruction - Continue PPI - Outpatient manometry ? Abnormal urinalysis No longer c/o UTI symptoms. Culture contaminated. Afebrile, no leukocytosis - No indication for antibiotics ? 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 Anxiety disorder, continue duloxetine, can use trazodone as needed for Breast mass (N63.0):??Outpatient follow-up with oncology??as planned per patient's report History of colon cancer (Z85.038), History of colectomy (Z90.49),??History of stomach cancer (Z85.028),??History of bladder cancer (Z85.51),??Neurogenic bladder (N31.9),??Colostomy present (Z93.3),??Family history of cancer (Z80.9): Stable, outpatient follow up . Physical Exam Constitutional: 69 year old female, alert, in no??acute distress. Mental Status: Oriented to person, place and time. Respiratory: Clear to auscultation. No wheezing, rales or rhonchi. Cardiovascular: RRR, S1 S2 regular. No murmurs, rubs or gallops. Gastrointestinal: Abdomen soft, diffusely tender, non-distended. Normal bowel sounds.??Ostomy and urostomy??in place Neurologic: No focal deficits. Consultants GI Pain management Patient Education Titles Web[employer] Patient Education - Unknown Causes of Abdominal Pain (Adult)?? [employer] Patient Education - Abdominal Pain?? [employer] Patient Education - Esophageal Manometry?? Follow-Up Appointments Added Follow Up ?Time Frame ?Comments Kacey ROSE, Era Scott?Within two weeks Patient Instructions You were seen for recurrent abdominal pain. CT and MRI of your abdomen did not show anything remarkable. You had an esophagram which showed some narrowing in the esophagus, GI did not feel another dilation would benefit you therefor they have arranged outpatient manometry. They will call to arrangethis appointment. You need to follow up with your PCP for pain management, I have sent you with a 3day supply.?? Post Discharge Care Discharge ?08/10/25 8:58:00 EST ?Order Comment:?? Discharge Prescriptions ?ePrescribed, 08/10/25 8:58:00 EST ?Order Comment:?? Home Health Face to Face *Denotes mandatory blank ?? *I certify that this patient is under my care and that I or an allowed non- physician working with me had a face to face encounter with the patient on this date:??08/10/2025 09:06 ?? *The encounter with the patient was in whole, or in part, for the following medical condition, which is the primary diagnosis(es) for home health care:??Pain in the abdomen (R10.9) Common bile duct dilatation (K83.8) Pancreatic duct dilated (K86.89) Afib (I48.91) Anticoagulated on Eliquis (Z79.01) History of colectomy (Z90.49) Neurogenic bladder (N31.9) History of colon cancer (Z85.038) History of stomach cancer (Z85.028) History of bladder cancer (Z85.51) Family history of cancer (Z80.9) Esophageal stricture (K22.2) Colostomy present (Z93.3) Dysphagia (R13.10) Dysphagia (R13.10) Esophageal dysmotility (K22.4) History of DVT (deep vein thrombosis) (Z86.718) Seizure disorder (G40.909) History of pulmonary embolism (Z86.711) Conversion disorder (F44.9) Breast mass (N63.0) Hypotension (I95.9) Abdominal pain (R10.9) GERD (gastroesophageal reflux disease) (K21.9) ?? *Select the indications for the discipline/s that are being arranged for this patient. Nursing (select all that apply): [_] None [_] Medication management (reconciliation, teaching)?? [x] Chronic disease management?? [_] Wound care and treatment?? [x] Home safety evaluation [_] Administer SQ/IM/IV medications?? [_] Cath care?? [_] Drain care?? [_] Trach or GT care?? Other _ Occupation Therapy (select all that apply): [_] None [_] ADL Management [_] Fall prevention training [_] Energy conservation [_] Cognitive training Other _ Physical Therapy (select all that apply): [_] None [x] Functional mobility training [x] Home exercise program to strengthen [_] Increase ROM?? [_] Falls prevention training [x] Home maintenance program for chronic disease Other _ Speech Therapy (select all that apply): [_] None [_] Swallow evaluation and training [_] Speech and language training [_] Cognitive training to process, organize, and/or recall information Other _ ? *Homebound due to (select all that apply): [_] Inability to leave home without assistance/supervision [_] Inability to ambulate without assistance [_] Pain [x] Decreased strength and endurance [_] Unsteady gait [_] Severe SOB and fatigue [_] Impaired transfers [_] Inability to negotiate stairs [_] Limited weight bearing [_] Mental status change? *Physician Signature:??Cheryl ROSE ?? *By signing this, I certify that I have personally evaluated the patient and agree with the findings and recommendations as documented above. Results Discharge Labs BACTERIOLOGY Urine Culture Results Note ()?? 08/06/2025 10:45 Urine Culture Specimen Source URINE ()?? 08/06/2025 10:45 ?? BLOOD COUNT & DIFF WBC 3.8 k/mm3 (Low)?? 08/08/2025 03:18 RBC 2.77 m/mm3 (Low)?? 08/08/2025 03:18 Hgb 8.6 Gm/dL (Low)?? 08/08/2025 03:18 Hct 27.1 % (Low)?? 08/08/2025 03:18 MCV 97.8 femtoliters ()?? 08/08/2025 03:18 MCH 31.0 pg ()?? 08/08/2025 03:18 MCHC 31.7 Gm/dL (Low)?? 08/08/2025 03:18 Platelet Count 222 k/mm3 ()?? 08/08/2025 03:18 RDW-SD 46.6 femtoliters ()?? 08/08/2025 03:18 MPV 9.5 femtoliters ()?? 08/08/2025 03:18 Nucleated RBC (Automated) 0.0 #/100 WBC'S ()?? 08/08/2025 03:18 Abs. NRBC 0.0 k/mm3 ()?? 08/08/2025 03:18 Abs. Neut 1.8 k/mm3 ()?? 07/30/2025 09:50 Abs. Lymph 1.5 k/mm3 ()?? 07/30/2025 09:50 Abs. [place] 0.4 k/mm3 ()?? 07/30/2025 09:50 Abs. Eo 0.3 k/mm3 ()?? 07/30/2025 09:50 Abs. Baso 0.0 k/mm3 ()?? 07/30/2025 09:50 Neut % 43.6 % (Low)?? 07/30/2025 09:50 Lymph % 37.7 % ()?? 07/30/2025 09:50 [place] % 10.0 % ()?? 07/30/2025 09:50 Eos % 7.8 % (High)?? 07/30/2025 09:50 Baso % 0.7 % ()?? 07/30/2025 09:50 Imm Gran 0.2 % ()?? 07/30/2025 09:50 Abs. Imm Gran 0.0 k/mm3 ()?? 07/30/2025 09:50 ?? CARDIAC High Sensitivity Troponin (HSTnT) <6 ng/L () 07/30/2025 09:50 ? CHEM GENERAL Sodium 145 mmol/L ()?? 08/08/2025 03:18 Potassium 4.1 mmol/L ()?? 08/08/2025 03:18 Chloride 106 mmol/L ()?? 08/08/2025 03:18 Bicarbonate Level 31 mmol/L (High)?? 08/08/2025 03:18 Anion Gap 8 mmol/L ()?? 08/08/2025 03:18 Glucose Level 89 mg/dL ()?? 08/08/2025 03:18 BUN 21 mg/dL ()?? 08/08/2025 03:18 Creatinine-Blood 0.54 mg/dL ()?? 08/08/2025 03:18 Estimated GFR Creatinine 100 ML/MIN/1.73 M2 ()?? 08/08/2025 03:18 Calcium 8.6 mg/dL ()?? 08/08/2025 03:18 Phosphorus 3.9 mg/dL ()?? 08/06/2025 06:53 Magnesium 1.7 mg/dL ()?? 08/06/2025 06:53 Protein, Total 5.4 Gm/dL (Low)?? 08/02/2025 06:40 Albumin 3.2 Gm/dL (Low)?? 08/02/2025 06:40 AG Ratio 1.4 ()?? 07/30/2025 09:50 Alkaline Phosphatase 66 units/L ()?? 08/02/2025 06:40 Lipase, Serum/Plasma 15 units/L ()?? 07/30/2025 09:50 AST (SGOT) 13 units/L ()?? 08/02/2025 06:40 ALT (SGPT) 6 units/L ()?? 08/02/2025 06:40 Bilirubin, Total 0.3 mg/dL ()?? 08/02/2025 06:40 Bilirubin, Direct 0.1 mg/dL ()?? 08/02/2025 06:40 Bilirubin, Indirect 0.2 mg/dL ()?? 08/02/2025 06:40 Lactate 1.7 mmol/L ()?? 07/30/2025 09:50 ? MISC. CHEMISTRY Hold Gel Top SPECIMEN DISCARDED AFTER 1 WEEK ()?? 08/02/2025 06:40 ? UA/URINALYSIS Appear/Color, Urine LIGHT YELLOW ()?? 08/06/2025 10:45 Clarity TURBID (Abnormal)?? 08/06/2025 10:45 Specific [place], Urine 1.012 ()?? 08/06/2025 10:45 pH, Urine 8.5 (High)?? 08/06/2025 10:45 Albumin, Urine TRACE (Abnormal)?? 08/06/2025 10:45 Glucose, Urine NEGATIVE ()?? 08/06/2025 10:45 Ketones, Urine NEGATIVE ()?? 08/06/2025 10:45 Bilirubin, Urine NEGATIVE ()?? 08/06/2025 10:45 Hemoglobin, Urine TRACE (Abnormal)?? 08/06/2025 10:45 Nitrite, Urine POSITIVE (Abnormal)?? 08/06/2025 10:45 Leukocyte, Urine 3+ (Abnormal)?? 08/06/2025 10:45 Urobilinogen NORMAL mg/dL ()?? 08/06/2025 10:45 WBC's, Urine 47 /HPF (High)?? 08/06/2025 10:45 RBC's, Urine 8 /HPF (High)?? 08/06/2025 10:45 Bacteria HEAVY HPF (Abnormal)?? 08/06/2025 10:45 Squamous Epith 1 /HPF ()?? 08/06/2025 10:45 Amorphous Crystals SLIGHT /HPF ()?? 07/30/2025 01:28 Mucus SLIGHT /LPF ()?? 08/06/2025 10:45 Hold Urine Culture Testing available 48 hours from time of collection. ()?? 07/30/2025 01:28 Culture Indication CULTURE INDICATED ()?? 08/06/2025 10:45 ?? URINE OTHER Est Creatinine Clearance 72.48 mL/min ()?? 08/08/2025 03:54 ? 40??minutes spent on discharge Electronically Signed on 08/10/25 09:08 AM Cheryl Red RN, Frances: PERFORM Event Display: Patient Education/Instruction Authored Date: [id number] Inpatient Adult Discharge Instructions. [address] [address] Name: JUJU GUTIERRESRBORN : 1955?? Visit: 07/30/2025 11:57?? Current Date: 08/10/2025 10:26 ?? Account: [id number]?? Inpatient Adult Discharge Instructions We would like [...] and their families. Surveys are administered by [employer] ?? If further treatment with your primary care physician or another doctor is recommended, it is important for you to keep the appointment. Call your primary care physician or return to the Emergency Department immediately if your condition worsens, fails to improve, or new symptoms develop. If you need to find a doctor, you can call [facility] for a referral at [phone] or toll free at [phone] or log in to [email or web address] ?? [facility], in keeping with [facility] guidance, no longer requires face masks for staff, patientsor visitors in most situations. Similiar to time spent indoors at other locations, there is the chance that you were exposed to repiratory viruses during your time with us (such as flu or COVID-19). If you develop symptoms concerning for a viral respiratory infection, please seek testing (and treatment if indicated) from your medical provider or home test kit. ?? You can view and manage your care through the patient portal or by using a health care heather of your choosing. [employer] is a website that allows you to securely view your medical information including your hospital discharge summary, office visit summaries, medications and follow-up visits. You can also request appointments, renew medications, and request access to your medical information using a health care heather of your choosing, or just ask a question. You are entitled to know the individuals who participated in your treatment. This information is available within your medical record and will be provided upon your request. You can enroll at [email or web address] or register d uring your next office visit. You have been discharged from [facility], Patient Care Unit: S15??. If you have any questions regarding these instructions, including results of studies pending, afteryou leave, please call us and we will be happy to assist you 16/04. [facility] Your Care Team Attending Physician Jose Francisco Sage MD?? Consulting Providers Jose Francisco Sage MD?? Discharging Providers Cheryl Red Reason for Your Visit see red cross?? Your Diagnosis Pain in the abdomen Common bile duct dilatation Pancreatic duct dilated Afib Anticoagulated on Eliquis History of colectomy Neurogenic bladder History of colon cancer History of stomach cancer History of bladder cancer Family history of cancer Esophageal stricture Colostomy present Dysphagia Dysphagia Esophageal dysmotility History of DVT (deep vein thrombosis) Seizure disorder History of pulmonary embolism Conversion disorder Breast mass Hypotension GERD (gastroesophageal reflux disease) Tests Performed Below is a partial list of the tests performed during your hospitalization. You may have had other tests and procedures not included in this list. Please discuss all test results with your provider. BASIC METABOLIC PANEL BUN CBC w/ Differential COMPLETE BLOOD COUNT Comprehensive Metabolic Panel Creatinine Electrolytes Glucose Level Hepatic Function Panel HOLD GEL TUBE Lactic Acid Level Lipase Lytes Magnesium Level Phosphorus Level Troponin T, High Sensitivity Urinalysis Complete/Reflex Culture Urinalysis w/hold for Urine Culture Urine Culture, Routine Abdomen MRI W+W/O Contrast CT Abd/Pelvis W/ IV Contrast Only XR Chest 2 Views Frontal and Lat XR Esophagus BS Single Contrast Add On Lab Order?? BUN?? Basic Metabolic Panel?? CBC (COMPLETE BLOOD COUNT)?? CBC w/ Differential?? CT Abd/Pelvis W/ IV Contrast Only?? Complete Urinalysis (Urinalysis Complete)?? Complete Urinalysis/Reflex Culture (Urinalysis Complete/Reflex Culture)?? Comprehensive Metabolic Panel?? Creatinine?? Electrolytes?? Glucose Level?? Hepatic Function Panel?? High??Sensitivity??Troponin T (Troponin T, High Sensitivity)?? Hold Gel Top Tube (HOLD GEL TUBE)?? Lactic Acid Level?? Lipase?? MRI Abdomen W+W/O Contrast (Abdomen MRI W+W/O Contrast)?? Magnesium Level?? Phosphorus Level?? Urinalysis w/hold for Urine Culture?? Urine Culture (Culture Urine)?? Chest 2 Views Frontal and Lat (XR Chest 2 Views Frontal and Lat)?? XR Esophagus BS Single Contrast?? Primary Care Provider Era Moser? Advance Directive Health Care Proxy on File Yes - Health Care Proxy Discharge Vitals Temperature: 98.6 DegF Height: 153 cm Pulse Rate: 70 bpm Weight: 48.5 kg Respiratory Rate: 16 br/min Body Mass Index: 20.72 kg/m2 Systolic Blood Pressure: 134 mm Hg Body surface area: 1.44 Diastolic Blood Pressure:??43 mm Hg??Low ?? Oxygen Saturation: 97 % ?? Studies Pending All studies ordered during this hospital stay have been completed unless listed below. Please discuss all pending results with your provider listed above in these instructions. ?? BUN?? Complete Urinalysis (Urinalysis Complete)?? Creatinine?? Electrolytes (Lytes)?? Urine Culture (Culture Urine)?? What to do next Instructions From Your Doctor You were seen for recurrent abdominal pain. CT and MRI of your abdomen did not show anything remarkable. You had an esophagram which showed some narrowing in the esophagus, GI did not feel another dilation would benefit you therefor they have arranged outpatient manometry. They will call to arrangethis appointment. You need to follow up with your PCP for pain management, I have sent you with a [employer] supply.? Orders? 08/10/25 8:58:00 EST?? Prescriptions??, ??08/10/25 8:58:00 EST?? Scheduled Follow-Up Appointments Sunday 3:00 PM EST ?? Type: US Core Biopsy Where: [facility] Radiology [facility] [address] [place] [address]- Status: Pending 2024 4:15 PM EST ?? Type: SN - Endoscopy Where: [facility] Status: Pending You Need to Schedule the Following Appointments Follow Up with??Era Moser When:Within Within two weeks Where:[address] [facility] [place] [address]- Discharge Medications JUJU BERNARD :1955 Visit Date:07/30/2025 Medications: Please continue your medications until treatment is completed or stopped by your provider. Medications not listed below should be discontinued. Discuss any questions related to medications with your provider. What How Much When Why Instructions Next Dose New Hydromorphone (Dilaudid 4 mg oral tablet) 4 Milligram Oral Every 6 hours as needed for Pain , Severe Duration: 3 Days Ordering Physician: Cheryl Red at [facility] 3 as needed Changed Dicyclomine (dicyclomine 10 mg oral capsule) 2 capsule Oral 3 times a day Ordering Physician: Cheryl Red at [facility] 3 3pm 08/10 Unchanged Albuterol (ProAir HFA 90 mcg/ inh inhalation aerosol with adapter) 1 puff(s) Inhalation Every 6 hours as needed for for wheezing as needed Unchanged apixaban (Eliquis 5 mg oral tablet) 1 tab(s) Oral Twice a day Ordering Physician: Jose Francisco Sage MD 08/10 Unchanged Cholecalciferol (cholecalciferol 1000 intl units oral tablet) 1 tab(s) Oral Daily Ordering Physician: Ivette Hill MD 08/11 Unchanged Cholestyramine (cholestyramine 4 g/ 5.5 g oral powder for reconstitution) 4 gram Oral Daily Diarrhea Ordering Physician: Latha Richardson MD 08/11 Unchanged Cyanocobalamin (Vitamin B-12 1000 mcg oral tablet) 1 tab(s) Oral Daily 08/11 Unchanged Duloxetine (duloxetine 60 mg oral enteric coated capsule) 1 capsule Oral Daily 08/11 Unchanged Fludrocortisone (fludrocortisone 0.1 mg oral tablet) 0.2 Milligram Oral Daily in the morning Ordering Physician: Jose Francisco Sage MD 08/11 Unchanged Fluticasone-Salmeterol (fluticasone-salmeterol 115 mcg-21 mcg inhalation aerosol with adapter) 2 inhalation Inhalation Twice a day Special Instructions: rinse mouth and throat after use ?? 08/10 Unchanged levETIRAcetam (levETIRAcetam 750 mg oral tablet) 1 tab(s) Oral Twice a day Duration: 30 Days Ordering Physician: Jose Francisco Sage MD 08/10 Unchanged Levothyroxine (levothyroxine 0.05 mg oral tablet) 1 tab(s) Oral Daily 08/11 Unchanged Lidocaine Topical (lidocaine 2.5% topical liquid) See instructions Special Instructions: By Mouth Every 4 hours, As needed for Other Ordering Physician: Kev Otero MD, Harman ?? as needed Unchanged Loperamide (loperamide 2 mg oral capsule) 4 Milligram Oral 3 times a day Special Instructions: Can take additional 4 mg if output greater than 1.5 L in 24 hours. (Do not exceed more than 16 mg in a day) If colostomy output decreases, hold dose. Ordering Physician: Ivette Hill MD ?? 08/10 Unchanged Midodrine (midodrine 10 mg oral tablet) 1 tab(s) Oral 3 times a day Ordering Physician: Jose Francisco Sage MD 08/10 Unchanged Multivitamin (multivitamin Multiple Vitamins oral tablet) 1 tab(s) Oral Daily Ordering Physician: Meera Kelley MD 08/11 Unchanged nalOXONE (Narcan 4 mg/ 0.1 mL nasal spray) 1 spray(s) Naris, Left Once as needed for Other Special Instructions: To reverse opioid overdose as needed; Use one spray in one nostril. if an additional dose is needed, alternate nostril; May repeat every 2 to 3 minutes until patient responds Ordering Physician: Meera Kelley MD ?? as needed Unchanged Omeprazole (omeprazole 40 mg oral enteric coated capsule) 1 capsule Oral Daily Dysphagia GERD (gastroesophageal reflux disease) Special Instructions: 30-40 mins before breakfast Ordering Physician: Jenifer Santos ?? 08/11 Unchanged Thiamine (thiamine 100 mg oral tablet) 1 tab(s) Oral Daily Duration: 10 Days 08/11 Unchanged Trazodone (traZODone 50 mg oral tablet) 1 tab(s) Oral Daily at Bedtime as needed for Sleep 908/10 Pharmacy Information [facility]: [address], [place] [id number] [phone] ?? What How Much When Comments Stop Taking Durable Medical Equipment (Walker) See instructions Special Instructions: Use with ambulation Ordering Physician: Cheryl Red ?? Stop Taking Oxycodone (oxyCODONE 5 mg/ 5 mL oral solution) 5 Milliliter Special Instructions: TAKE 5 ML BY MOUTH EVERY 6 HOURS NEEDED FOR PAIN. START AFTER 3 DAYS OF OTHER PRESCRIPTION ?? Prescription Given During Visit Dicyclomine (dicyclomine 10 mg oral capsule) - 2 capsule = 20 mg, By Mouth, 3 times a day, # 180 capsule, 0 Refills, [facility] [address], [address] [place] [address] [phone]?? Hydromorphone (Dilaudid 4 mg oral tablet) - 4 mg, By Mouth, Every 6 hours, # 12 tablet, 0 Refills, [facility] [address], [address] [place] [address] [phone]?? Laboratory Results Below is a partial list of the most recent Laboratory test results done prior to this discharge. You may have had other tests and procedures not included in this list. Please discuss all test resultswith your provider. Est Creatinine Clearance - 72.48 mL/min (08/08/2025) BASIC METABOLIC PANEL (08/08/2025) ???Sodium - 145 mmol/L???Potassium - 4.1 mmol/L???Chloride - 106 mmol/L???Bicarbonate Level - 31 mmol/L???Anion Gap - 8 mmol/L???Glucose Level - 89 mg/dL???BUN - 21 mg/dL???Creatinine-Blood - 0.54 mg/dL???Estimated GFR Creatinine - 100 ML/MIN/1.73 M2???Calcium - 8.6 mg/dL BUN (08/06/2025) ???BUN - 24 mg/dL CBC w/ Differential (07/30/2025) ???WBC - 4.1 k/mm3???RBC - 3.51 m/mm3???Hgb - 10.8 Gm/dL???Hct - 33.5 %???MCV - 95.4 femtoliters???MCH - 30.8 pg???MCHC - 32.2 Gm/dL???Platelet Count - 278 k/mm3???RDW-SD - 45.6 femtoliters???MPV - 9.5 femtoliters???Nucleated RBC (Automated) - 0.0 #/100 WBC'S???Abs. NRBC - 0.0 k/mm3???Abs. Neut - 1.8 k/mm3???Abs. Lymph - 1.5 k/mm3???Abs. [place] - 0.4 k/mm3???Abs. Eo - 0.3 k/mm3???Abs. Baso - 0.0 k/mm3???Neut % - 43.6 %???Lymph % - 37.7 %???[place] % - 10.0 %???Eos % - 7.8 %???Baso % - 0.7 %???Imm Gran - 0.2 %???Abs. Imm Gran - 0.0 k/mm3 COMPLETE BLOOD COUNT (08/08/2025) ???WBC - 3.8 k/mm3???RBC - 2.77 m/mm3???Hgb - 8.6 Gm/dL???Hct - 27.1 %???MCV - 97.8 femtoliters???MCH - 31.0 pg???MCHC - 31.7 Gm/dL???Platelet Count - 222 k/mm3???RDW-SD - 46.6 femtoliters???MPV - 9.5 femtoliters???Nucleated RBC (Automated) - 0.0 #/100 WBC'S???Abs. NRBC - 0.0 k/mm3 Comprehensive Metabolic Panel (07/30/2025) ???Sodium - 134 mmol/L???Potassium - 3.8 mmol/L???Chloride - 107 mmol/L???Bicarbonate Level - 17 mmol/L???Anion Gap - 10 mmol/L???Glucose Level - 85 mg/dL???BUN - 22 mg/dL???Creatinine-Blood - 0.44 mg/dL???Estimated GFR Creatinine - 105 ML/MIN/1.73 M2???Calcium - 9.3 mg/dL???Protein, Total - 6.9 Gm/ dL???Albumin - 4.0 Gm/dL???AG Ratio - 1.4???Alkaline Phosphatase - 79 units/L???AST (SGOT) - 12 units/L???ALT (SGPT) - 8 units/L???Bilirubin, Total - 0.3 mg/dL Creatinine (08/06/2025) ???Creatinine-Blood - 0.50 mg/dL???Estimated GFR Creatinine - 102 ML/MIN/1.73 M2 Electrolytes (08/06/2025) ???Sodium - 142 mmol/L???Potassium - 3.7 mmol/L???Chloride - 101 mmol/L???Bicarbonate Level - 36 mmol/L???Anion Gap - 5 mmol/L Glucose Level (08/06/2025) ???Glucose Level - 87 mg/dL Hepatic Function Panel (08/02/2025) ???Protein, Total - 5.4 Gm/dL???Albumin - 3.2 Gm/dL???Alkaline Phosphatase - 66 units/L???AST (SGOT) - 13 units/L???ALT (SGPT) - 6 units/L???Bilirubin, Total - 0.3 mg/dL???Bilirubin, Direct - 0.1 mg/dL???Bilirubin, Indirect - 0.2 mg/dL HOLD GEL TUBE (08/02/2025) ???Hold Gel Top - SPECIMEN DISCARDED AFTER 1 WEEK Lactic Acid Level (07/30/2025) ???Lactate - 1.7 mmol/L Lipase (07/30/2025) ???Lipase, Serum/Plasma - 15 units/L Lytes (08/03/2025) ???Sodium - 140 mmol/L???Potassium - 3.3 mmol/L???Chloride - 112 mmol/L???Bicarbonate Level - 22 mmol/L???Anion Gap - 6 mmol/L Magnesium Level (08/06/2025) ???Magnesium - 1.7 mg/dL Phosphorus Level (08/06/2025) ???Phosphorus - 3.9 mg/dL Troponin T, High Sensitivity (07/30/2025) High Sensitivity Troponin (HSTnT) - <6 ng/L Urinalysis Complete/Reflex Culture (08/06/2025) ???Appear/Color, Urine - LIGHT YELLOW???Clarity - TURBID???Specific [place], Urine - 1.012???pH, Urine - 8.5???Albumin, Urine - TRACE???Glucose, Urine - NEGATIVE???Ketones, Urine - NEGATIVE???Bilirubin, Urine - NEGATIVE???Hemoglobin, Urine - TRACE???Nitrite, Urine - POSITIVE???Leukocyte, Urine - 3+? ??Urobilinogen - NORMAL???WBC's, Urine - 47 /HPF???RBC's, Urine - 8 /HPF???Bacteria - HEAVY???Squamous Epith - 1 /HPF???Mucus - SLIGHT???Culture Indication - CULTURE INDICATED Urinalysis w/hold for Urine Culture (07/30/2025) ???Appear/Color, Urine - LIGHT YELLOW???Specific [place], Urine - 1.012???pH, Urine - 6.5???Albumin, Urine - NEGATIVE???Glucose, Urine - NEGATIVE???Ketones, Urine - NEGATIVE???Bilirubin, Urine - NEGATIVE???Hemoglobin, Urine - NEGATIVE???Nitrite, Urine - NEGATIVE???Leukocyte, Urine - NEGATIVE???Urobi linogen - NORMAL WBC's, Urine - 1 /HPF RBC's, Urine - <1 /HPF Bacteria - SLIGHT Amorphous Crystals - SLIGHT???Mucus - SLIGHT???Hold Urine Culture - Testing available 48 hours from time of collection. Urine Culture, Routine (08/06/2025) ???Urine Culture Results - Note???Urine Culture Specimen Source - URINE Immunizations This Visit Given Vaccine Date influenza virus vaccine, inactivated 08/02/2025 Allergies (NKA means No Known Allergies) gabapentin(Severe)??States breathing difficulty and itchiness from med Depakote Fish Glutens??Allergy to seafood Levaquin??n-v, rash Motrin Rice??severe vomiting Seafood acetaminophen amoxicillin??n-v, rash, Amoxycillin allergy cefpodoxime clindamycin??n-v, rash codeine??n-v doxycycline??n-v, rash erythromycin??n-v, rash nitrofurantoin oxacillin??n-v, rash penicillin??anaphylaxis, rash rifampin??n-v, rash sulfa drugs??n-v, rash tetracycline??n-v, rash vancomycin??n-v, rash Problems Active Problems??(31) Abdominal pain?? Afib?? Anticoagulated on Eliquis?? Breast mass?? Chest pain?? Colostomy present?? Conversion disorder?? Dehydration?? Diarrhea?? Dysphagia?? Esophageal dysmotility?? GERD (gastroesophageal reflux disease)?? hgih fall risk?? History of DVT (deep vein thrombosis)?? History of pulmonary embolism?? Hypokalemia?? Major depression?? Myofascial pain syndrome?? Narcotic dependence, opiate seeking behavior?? Nausea and vomiting?? NO h/o CVA by MRI?? Pain in pelvis?? Parastomal hernia?? pneumonia?? Pseudoseizures?? PTSD (post-traumatic stress disorder)?? Rapid gastric emptying?? Seizure disorder?? Status post ileal conduit?? SVT - Supraventricular tachycardia?? UTI symptoms?? Education Materials Below is the list of Educational Leaflet Providered with your Discharge Instructions. WebMD Ignite Patient Education - Unknown Causes of Abdominal Pain (Adult)?? WebMD Ignite Patient Education - Abdominal Pain?? WebMD Ignite Patient Education - Esophageal Manometry?? Valuables and Belongings I fully understand and agree that [facility] accepts no responsibility for all my personal [...] Review of Valuable and Belonging List: With patient, With witness Date for Pt to Sign Valuables/Belongings: 08/10/25 10:21:00 ?? Other Discharge Information ? Case Management Discharge Plan?? Discharge Plan?? Discharge Agency Information?? Discharge Level of Care at Discharge: Homehealth/VNA Name of Agency #1: [facility] Discharge Transportation Arranged: [facility] [phone] Service Categories #1: Physical Therapy, Senior Living Mode of Transportation Arranged: Chair Scheller Service Comments #1: [facility] will provide nursing and PTservices at home. ??Your RN today willcall them to notify them to start services. ??The agency will contact you to set up a visit. ??Please call [phone] if you do not hear from them within 24 hours of discharge. Discharge Arranged Transport Date/Time: 08/10/25 11:00:00 ?? Discharge VNA/Hospice/Home Care: [facility] [phone] ? Pulmonary Rehab Status?? Pulmonary Rehab Discharge [...] are strongly encouraged to quit. Please call [facility] at [phone] or [phone] ([phone]) or log in to [email or web address] for referrals to smoking cessation programs. ?? 799 Suicide & Crisis Lifeline is available 16/04 if you or someone you know needs to find a reason to keep living. By calling 203 you'll be connected to a skilled, trained counselor at a crisis center in your area. INPATIENT DISCHARGE INSTRUCTIONS SIGNATURE PAGE JOANAJUJU HARTMAN Location:[facility] Registration Date and Time:07/30/2025 11:57 EST Primary Care Physician: Era Moser, Attending Physician: Jose Francisco Sage MD, I JUJU BERNARD, have received the above patient education materials/instructions and have verbalized understanding. If ambulance or transport services are being used I further acknowledge being given a choice of service. ?? If you need to contact me, please call me at this number: . Patient/Fleet Operations Manager Name: Patient/Fleet Operations Manager Signature: Relationship to Patient: Witness Name/Signature: Date: * Cheryl Red: PERFORM Event Display: Patient Education Leaflets Authored Date: [id number] Unknown Causes of Abdominal Pain (Adult) ?? [id number] Unknown Causes of Abdominal Pain (Adult) The exact cause of your belly (abdominal) pain is not clear. Your exam and tests don't suggest a dangerous cause at this time. This does not mean that this is something to worry about. Everyone likesto know the exact cause of the problem. But sometimes with belly pain, there is no clear-cut cause,and this could be a good thing. Your symptoms can be treated, and you should feel better.?? Your condition does not seem serious now. But sometimes the signs of a serious problem may take more time to appear. For this reason,??it's important for you to watch for any new symptoms, problems,??or if your condition gets worse. Over the next few days, the abdominal pain may come and go. Or it may be constant. Other common symptoms can include nausea and vomiting. Sometimes it can be difficult to tell if you feel nauseous. You may just feel bad and not connect that feeling to nausea. Constipation, diarrhea, and a fever maygo along with the pain. The pain may continue even if treated correctly over the following days. Depending on how things go, sometimes the cause can become clear and you may need more??or different treatment. You may also need other evaluations, medicines, or tests. Home care Your healthcare provider may prescribe medicine for pain, symptoms, or an infection. ??Follow the healthcare provider's instructions for taking these medicines. General care ??? Rest as much as you can until your next exam. No strenuous activities. ??? Try to not do anything that may have caused your symptoms. This might be not taking any medicines unless otherwise directed by your healthcare provider. It might be not eating certain foods or doing certain activities. ??? Find positions that ease discomfort. A small pillow placed on your belly may help relieve pain. ??? Something warm on your belly, such as a heating pad, may help, but be careful not to burn yourself. Diet ??? Don???t??force yourself to eat, especially if having cramps, vomiting, or diarrhea. ??? Water is important so you don't get dehydrated. Soup may also be good. Sports drinks may also help, especially if they are not too acidic. Don't drink sugary drinks as this can make things worse. Take liquids in small amounts. Don???t??guzzle them. ??? Caffeine sometimes makes the pain and cramping worse. ??? Don???t take??dairy products if you have vomiting or diarrhea. ??? Don't eat large amounts at a time. Eat several small meals during the day instead of 2 or 3 larger meals. Wait a few minutesbetween bites. ??? Eat a diet low in fiber (called a low-residue diet). Foods allowed include refined breads, white rice, fruit and vegetable juices without pulp, tender meats. These foods will pass more easily through the intestine. ??? Don???t have??whole- grain foods, whole fruits and vegetables,meats, seeds, and nuts, fried or fatty foods, dairy, alcohol and spicy foods until your symptoms goaway. ?? Follow-up care Follow up with your healthcare provider, or as advised, if your pain does not begin to improve in the next 24 hours. ?? Call 911 Call?? 911 if any of these occur: ??? Trouble breathing ??? Confusion ??? Fainting or loss of consciousness ??? Rapid heart rate ??? Seizure ?? When to get medical advice Call your healthcare provider right away if any of these occur: ??? Pain gets worse or moves to theright lower abdomen ??? Vomiting or diarrhea that is new or gets worse ??? Swelling of the abdomen ??? Unable to pass stool for more than??3 days ??? Fever of 100.4??F (38??C) or higher, or as directed by your healthcare provider ??? Blood in vomit or bowel movements (dark red or black color) ??? Yellow color of eyes and skin (jaundice) ??? Weakness, dizziness ??? Chest, arm, back, neck, or jaw pain ??? Can't keep down medicines, liquids, or water because of too much vomiting ??? If you have avagina: unexpected vaginal bleeding or missed period ?? Last Reviewed Date: 2024 00:00:00 ?? [id number] [employer]. All rights reserved. This information is not intended as a substitute for professional medical care. Always follow your healthcare professional's instructions. ?? * Cheryl Red: PERFORM Event Display: Patient Education Leaflets Authored Date: [id number] Abdominal Pain ?? 28596 Abdominal Pain Abdominal pain means pain in the stomach or belly area. Everyone has this kind of pain from time totime. In many cases, it goes away on its own. Some types of abdominal pain can be from a serious problem. One example is appendicitis. So it???s important to know when to get help. Causes of abdominal pain There are many causes of abdominal pain. Common causes in adults include: ??? Constipation, diarrhea, or gas ??? Stomach and intestine inflammation from a virus or bacteria (gastroenteritis) ??? Stomach acid flowing back up into the esophagus (acid reflux) ??? Severe acid reflux, called gastroesophageal reflux disease (GERD) ??? A sore in the lining of the stomach or small intestine (peptic ulcer) ??? Inflammation of the gallbladder, liver,??or pancreas ??? Gallstones or kidney stones ??? Appendicitis? Intestinal blockage? An internal organ pushing through a muscle or other tissue (hernia) ??? Urinary tract infections ??? Menstrual cramps ??? Fibroids in the uterus ??? Ovarian cysts ??? Pelvic inflammatory disease in women ??? Endometriosis ??? Crohn's disease ??? Ulcerative colitis ??? Irritable bowel syndrome ?? Diagnosing the cause of abdominal pain Your healthcare provider will give you a physical exam. This is to help find the cause of your pain. If needed, you'll have tests. Belly pain has many possible causes. So it may take a little time tofind the reason for your pain. Give details about the type of pain you feel. Tell your healthcare provider if it's sharp or dull. Tell them where and when you feel the pain. Tell them what makes it better or worse. And tell them if you have other symptoms such as: ??? Fever ??? Tiredness ??? Upset stomach (nausea) ??? Vomiting ??? Changes in bathroom habits ??? Blood in the stool or black, tarry stool ??? Unexpected weight loss Tell your healthcare provider: ??? If you have a family history of stomach or intestinal problems or cancer ??? About your alcohol use and any illegal drug use ??? All medicines you take, both prescription and [id number] ??? What vitamins, herbs, and other supplements you take ?? Treating abdominal pain Some causes of pain need emergency medical care right away. These include appendicitis or a bowel blockage. Other problems can be treated with rest, fluids, or medicines. Your healthcare provider cangive you instructions. You may need treatment or self-care based on what's causing your pain. If you have vomiting or diarrhea,?? sip water or other clear fluids. When you're ready to eat solidfoods again, start lightly. Eat small amounts of [id number], low-fat foods. These include applesauce, toast, or crackers. ?? Call 911 Call 911??right away if you: ??? Can???t pass stool and are vomiting ??? Are vomiting blood ??? Have bloody diarrhea or black, tarry diarrhea ??? Have chest, neck, or shoulder pain ??? Feel like you might pass out (faint) ??? Have pain in your shoulder blades and nausea ??? Have sudden, severe belly pain ??? Have new, severe??pain unlike any you've felt before ??? Have a belly that is rigid, hard, and hurts to touch ?? When to call the healthcare provider Call your healthcare provider or seek medical care right away if you have any of these: ??? Pain that's worse or not getting better ??? Bloating that's worse or not getting better ??? Diarrhea that'sworse or not getting better ??? Fever of 100.4??F (38??C) or higher, or as advised ??? Weight loss for no reason ??? Continued lack of appetite ??? Blood in your stool ?? How to prevent abdominal pain Here are some tips to help prevent abdominal pain: Eat smaller amounts of food at each meal. >Don't eat greasy, fried, or other high-fat foods. ??? Don't eat foods that give you gas. ??? Exercise regularly. ??? Drink plenty of fluids. To help prevent GERD symptoms: ??? Quit smoking. ??? Reduce alcohol and foods that increase stomachacid. ??? Don't use aspirin or nonsteroidal anti- inflammatory drugs (NSAIDs). ??? Lose excess weight. ??? Finish eating at least 2 hours before you go to bed or lie down. ??? Raise the head of your bed. ?? Last Reviewed Date: 2023 00:00:00 ?? [id number] [employer]. All rights reserved. This information is not intended as a substitute for professional medical care. Always follow your healthcare professional's instructions. ?? * Cheryl Red: PERFORM Event Display: Patient Education Leaflets Authored Date: [id number] Esophageal Manometry ?? 19493 Esophageal Manometry Esophageal manometry is a test to measure the strength and function of the esophagus (food pipe). This test can help find causes of heartburn, swallowing problems, or chest pain. The test can also help plan surgery and decide if a past surgery was successful. Preparing for the test Talk with your healthcare provider about any medicines you take. Some medicines can affect the testresults. Ask any questions you have about the risks of the test. These can include irritation to the nose and throat. Also ask how the test will help in your future treatment and when you'll get the results. Follow any directions you're given for not eating or drinking before the test. ?? During the test Manometry takes about an hour. Often you lie down during the test. Your nose and throat are numbed.Then a soft, thin tube (catheter) is placed through the nose and down the esophagus. At first you may notice a gagging feeling. You'll be asked to swallow several times. Holes along the tube measure the pressure while you swallow. Measurements are printed out as tracings, much like a heart test tracing. After the test, another catheter may be left in the esophagus for up to 24??hours to measure acid (pH) levels. A catheter measures pressure along the esophagus. ?? After esophageal manometry You???ll likely discuss the test results with your healthcare provider at another appointment. Thisis because time is needed to review the tracings. You may have a mild sore throat for a short time.As soon as the numbness in your throat is gone, you can return to eating and your normal activities. ?? Last Reviewed Date: 2023 00:00:00 ?? [id number] [employer]. All rights reserved. This information is not intended as a substitute for professional medical care. Always follow your healthcare professional's instructions. ?? * Event Display: Provider Clarification Note Please click on pdf link to open report * Event Display: Provider Clarification Note Please click on pdf link to open report * Kat Jesus RN: PERFORM, SIGN, VERIFY Event Display: Case Management Discharge Plan Authored Date: [id number] Patient: JUJU BERNARD Age: 69 years Sex: Female : 1955 Associated Diagnoses: None Author: Kat Jesus RN Discharge Plan Case Management Discharge Plan : Case Management Discharge Plan Data 07/30/2025 14:51 EST Discharge Level of Care at Discharge Homehealth/VNA Discharge VNA/Hospice/Home Care [place] Name of Agency #1 [facility] Service Categories #1 Senior Living Service Comments #1 resume Electronically Signed on 07/30/25 02:53 PM Kat Jesus RN Consult note * Ruben Sampson MD: MODIFY Ruben Sampson MD: MODIFY, MODIFY, MODIFY Event Display: Consultation Note Authored Date: Patient: ??JOANA, JUJU ? Age:??69 Years?Sex:??Female?:??1955?LOC:??[facility]?? Referrring Provider Aries PAUL, Matheus Chief Complaint see red cross Reason for Consultation Epigastric pain, Dilated CBD and pancreatic duct History of Present Illness 69 yo F with PMHx of A.Fib and PE on AFib and PE on Eliquis, GERD, CVA, CHF,COPD, T2DM, gastroparesis, conversion disorder, parastomal hernia, and a colostomy following a Radha procedure in 1979 due to Crohn's disease, s/p nephrostomy tube placed after bladder reconstruction for a neurogenic bladder, history of multiple abdominal surgeries COPD, depression, seizure disorder on Keppra, PNES/conversion disorder, PTSD, that presented to the hospital for evaluation of abdominal pain. GI consulted for evaluation of pain and dilated CBD and PD on imaging. ?? Patient seen and evaluated at the bedside.?? She endorses a new epigastric pain that started about 5 days ago.?? She reports that it was sudden and severe in nature and since then has been fairly constant and gradually increasing.?? She reports because of this pain she has experienced some nausea and vomiting.?? She is also reporting increased ostomy output and needs to empty her bag more thanusual. ?? 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 Since this procedure she did have some persistent upper esophageal pain but reports that this pain started to improve. ?? Labs reviewed, WBC 4.1, Hgb 10.8, PLT 278, BUN 22, CR 0.44, LFTs WNL ?? 07/30/2025 CT Abdomen/Pelvis w/ IV contrast: Dilated common bile duct (2.1 cm) and pancreatic duct (up to 5 mm) is indicative of stricture in the region of the ampulla or mass. Recommend clinical correlation. No CT evidence of pancreatitis. ?? 07/10 CT A/P for comparison with about 1.5cm dilation of CBD ?? Recent Endoscopies: EGD 07/01/2025: Normal gastric mucosa, 2 mm to 3 mm polyps in duodenal bulb, esophageal stricture s/p dilation Review of Systems See HPI Physical Exam Vitals & Measurements T:??98?F?? TMIN:??97.2?F?? TMAX:??98.3?F?? HR:??93??(Peripheral)?? RR:??20?? BP:??103/71??SpO2:??100%?? WT:??48.5??kg?? General: A&Ox3, Well appearing, no acute distress. HEENT:??Normocephalic, atraumatic, EOMI, conjunctiva clear, sclera non-icteric Abdomen: Soft, non-distended, tenderness to palpation epigastric region Skin: No jaundice Psychiatric:??Normal judgment and insight, normal mood and affect. Assessment/Plan 69 yo F with PMHx of A.Fib and PE on Eliquis, GERD, CVA, CHF,COPD, T2DM, gastroparesis, conversion disorder, parastomal hernia, and a colostomy following a Radha procedure in 1979 due to Crohn's disease, s/p nephrostomy tube placed after bladder reconstruction for a neurogenic bladder, history of multiple abdominal surgeries COPD, depression, seizure disorder on Keppra, PNES/conversion disorder, PTSD, that presented to the hospital for evaluation of abdominal pain. GI consulted for evaluation of pain and dilated CBD and PD on imaging. ?? Patient with new onset epigastric pain.?? Her imaging is notable for increase in dilation of her CBD and new PD dilation.?? Patient denies use of opioid medications aside from few doses that she was prescribed after her last admission (opiate use can contribute to CBD dilation).?? At this time would recommend further evaluation of biliary tree and pancreatic duct with MRI+MRCP. ?? Recommendations: -Please obtain MRI Abdomen/Pelvis w/wo IV contrast with MRCP protocol -Further recommendations pending above workup -OK to hold eliquis in case intervention needed ?? GI will continue to follow. ?? Tammy Williamson,??DO?? Gastroenterology Fellow PGY4 #[id number] ?? Assessment and plan discussed with attending Dr. Sampson, addendum to follow. ?? Addendum: I have seen, evaluated and examined??this patient. All external/internal notes were reviewed by me.??I have reviewed and independently interpreted labs and??available images. I have discussed the case and its management with??fellow/resident??and agree with the findings and plan as documented in the note above.??Plan of care was reviewed with the patient/family.? Ruben Sampson MD Problem List/Past Medical History Ongoing Abdominal pain Afib Anticoagulated on Eliquis Breast mass Chest pain Colostomy present Conversion disorder Dehydration Diarrhea Dysphagia Esophageal dysmotility GERD (gastroesophageal reflux disease) History of DVT (deep vein thrombosis) History of pulmonary embolism Hypokalemia Major depression Myofascial pain syndrome Narcotic dependence, opiate seeking behavior Nausea and vomiting NO h/o CVA by MRI Pain in pelvis Parastomal hernia Pseudoseizures PTSD (post-traumatic stress disorder) Pulmonary embolism Status: Inactive Rapid gastric emptying Seizure disorder Status post ileal conduit SVT - Supraventricular tachycardia UTI symptoms Procedure/Surgical History Esophagogastroduodenoscopy and biopsy: 12/15/21 Endoscopic retrograde cholangiopancreatography (ERCP); with sphincterotomy/papillotomy: 04/16/20 Exploratory laparotomy, lysis of adhesions, repair of small bowel enterotomy and partial mesh excision: 08/31/11 Laparoscopic lysis of adhesions and repair of recurrent parastomal hernia with mesh: 08/24/11 Proctectomy Colectomy bladder surgery for prolapse total colectomy hysterectomy Medications Inpatient Albuterol(Ventolin 90 mcg Inhaler), 90 mcg= 1 puffs, Inhalation, Every 4 hours, PRN Budesonide-Formoterol(Symbicort 80mcg-4.5mcg Inhaler), 2 puffs, Inhalation, 2 times a day Cyanocobalamin(Vitamin B-12 1000 mcg oral tablet), 1000 mcg, By Mouth, Daily Dicyclomine(dicyclomine 10 mg oral capsule), 20 mg= 2 capsule, By Mouth, 4 times a day, PRN Duloxetine(Cymbalta 60 mg oral enteric coated capsule), 60 mg, By Mouth, Daily Enoxaparin(Enoxaparin Inj), 50 mg= 0.5 mL, 1 mg/kg, Subcutaneous Injection, Once Fludrocortisone(fludrocortisone 0.1 mg oral tablet), 0.2 mg, By Mouth, Daily in AM Hydromorphone(Dilaudid Inj), 1 mg= 1 mL, IV Push Slowly, Every 4 hours, PRN Lansoprazole(Lansoprazole OD Tablet), 30 mg, By Mouth, Daily levETIRAcetam(levETIRAcetam 750 mg oral tablet), 750 mg, By Mouth, 2 times a day Levothyroxine(levothyroxine 0.025 mg oral tablet), 50 mcg, By Mouth, Daily Melatonin(Melatonin Tablet), 3 mg, By Mouth, Daily at bedtime, PRN Midodrine(midodrine 5 mg oral tablet), 10 mg, By Mouth, 3 times a day Polyethylene Glycol 3350(MiraLax Powder), 17 Gm= 1 pack/packet, By Mouth, Daily, PRN Senna(Senna Tablet), 8.6 mg= 1 tablet, By Mouth, 2 times a day, PRN Sodium Chloride(NaCL 0.9% Flush), 3 mL, IV Push, Every 8 hours Sodium Chloride(NaCL 0.9% Flush), 3 mL, IV Push, Every 8 hours, PRN Thiamine(thiamine 100 mg oral tablet), 100 mg, By Mouth, Daily Home Albuterol(ProAir HFA 90 mcg/inh inhalation aerosol with adapter), 1 puffs, Inhalation, Every 6 hours, PRN apixaban(Eliquis 5 mg oral tablet), 5 mg= 1 tablet, By Mouth, 2 times a day Cholecalciferol(cholecalciferol 1000 intl units oral tablet), 25 mcg= 1 tablet, By Mouth, Daily Cholestyramine(cholestyramine 4 g/5.5 g oral powder for reconstitution), 4 Gm, By Mouth, Daily Cyanocobalamin(Vitamin B-12 1000 mcg oral tablet), 1000 mcg= 1 tablet, By Mouth, Daily Dicyclomine(dicyclomine 20 mg oral tablet), 20 mg= 1 tablet, By Mouth, 4 times a day, PRN Duloxetine(duloxetine 60 mg oral enteric coated capsule), 60 mg= 1 capsule, By Mouth, Daily Durable Medical Equipment(Walker), See Instructions Fludrocortisone(fludrocortisone 0.1 mg oral tablet), 0.2 mg, By Mouth, Daily in AM Fluticasone-Salmeterol(fluticasone-salmeterol 115 mcg-21 mcg inhalation aerosol with adapter), 2 inhalation, Inhalation, 2 times a day levETIRAcetam(levETIRAcetam 750 mg oral tablet), 750 mg= 1 tablet, By Mouth, 2 times a day, 2 refills Levothyroxine(levothyroxine 0.05 mg oral tablet), 50 mcg= 1 tablet, By Mouth, Daily Lidocaine Topical(lidocaine 2.5% topical liquid), See Instructions, PRN Loperamide(loperamide 2 mg oral capsule), 4 mg, By Mouth, 3 times a day Midodrine(midodrine 10 mg oral tablet), 10 mg= 1 tablet, By Mouth, 3 times a day Multivitamin(multivitamin Multiple Vitamins oral tablet), 1 tablet, By Mouth, Daily nalOXONE(Narcan 4 mg/0.1 mL nasal spray), 4 mg= 1 sprays, Naris, Left, Once, PRN Omeprazole(omeprazole 40 mg oral enteric coated capsule), 40 mg= 1 capsule, By Mouth, Daily, 4 refills Thiamine(thiamine 100 mg oral tablet), 100 mg= 1 tablet, By Mouth, Daily Trazodone(traZODone 50 mg oral tablet), 50 mg= 1 tablet, By Mouth, Daily at bedtime, PRN Allergies gabapentin(Severe)??States breathing difficulty and itchiness from med Depakote Fish Glutens??Allergy to seafood Levaquin??n-v, rash Motrin Rice??severe vomiting Seafood acetaminophen amoxicillin??n-v, rash, Amoxycillin allergy cefpodoxime clindamycin??n-v, rash codeine??n-v doxycycline??n-v, rash erythromycin??n-v, rash nitrofurantoin oxacillin??n-v, rash penicillin??anaphylaxis, rash rifampin??n-v, rash sulfa drugs??n-v, rash tetracycline??n-v, rash vancomycin??n-v, rash Social History Alcohol Use:Never Electronic Cigarette/Vaping E-Cigarette Use:Never Exercise Self assessment:Poor condition Home/Environment Living situation:Home/Independent Lives with:Grand daughter and 6 great grand children Nutrition/Health Diet: (Don't list allergies here)Gluten free Substance Abuse Use:Never Tobacco Use:Never (less than 100 in lifetime) Family History AIDS: Brother. Bladder: Mother. Brain: Negative: Aunt. CAD - Coronary artery disease: Mother. Cancer of breast: Aunt. Cancer of lung: Father and Sister. Stomach: Father and Sister. Stroke: Mother. Electronically Signed on 07/30/25 09:25 PM Tammy Williamson DO Electronically Signed on 08/08/25 09:33 AM Ruben Sampson MD Patient Care team information Care Team Personnel Name: Lydia Appiah RN Position: S RN Member Role: Primary Care Nurse Name: Sophie Crane RN Position: S RN Member Role: Primary Care Nurse Name: Genna Segovia CNM Position: Reference Physician Member Role: Primary Care Nurse Address: [address] [place] [id number] Telecom: Name: Olivia Valladares LPN Position: S RN Member Role: Primary Care Nurse Name: Sarah Tatum RN Position: S RN Member Role: Primary Care Nurse Name: Alexia Andino RN Position: S RN Member Role: Primary Care Nurse Name: Kyara Cole RN Position: S RN Member Role: Primary Care Nurse Name: Angelina Cuevas LPN Position: [facility] RN Member Role: Primary Care Nurse Name: Emili Burgess RN Position: [facility] RN Member Role: Primary Care Nurse Name: Eun Sharp RN Position: [facility] RN Member Role: Primary Care Nurse Name: Ita Austin RN Position: [facility] RN Supmathieu Member Role: Primary Care Nurse Name: Leighann Sierra RN Position: [facility] RN Member Role: Primary Care Nurse Name: Lita Williamson RN Position: [facility] RN Member Role: Primary Care Nurse Name: Aide Delvalle Position: [facility] RN Member Role: Primary Care Nurse Name: Ita Borrego RN Position: [facility] RN Member Role: Primary Care Nurse Name: Kat Wagner RN Position: [facility] OB RN Member Role: Primary Care Nurse Name: So Peralta RN Position: [facility] RN Member Role: Primary Care Nurse Name: Luke Reich RN Position: [facility] RN Member Role: Primary Care Nurse Name: Jay Reich RN Position: [facility] RN Member Role: Primary Care Nurse Name: Mónica Montanez RN Position: [facility] RN Member Role: Primary Care Nurse Name: Yamilet Jack RN Position: [facility] RN Member Role: Primary Care Nurse Name: Melyssa Dickson RN Position: [facility] RN Member Role: Primary Care Nurse Name: Michelle Florence Position: [facility] RN Member Role: Primary Care Nurse Name: Erica Huber RN Position: [facility] RN Member Role: Primary Care Nurse Name: Gwen Rock RN Position: [facility] RN Member Role: Primary Care Nurse Name: Kari Rock RN Position: [facility] RN Member Role: Primary Care Nurse Name: Inés Leonard LPN Position: [facility] RN Member Role: Primary Care Nurse Name: Nghia Cha RN Position: [facility] RN Member Role: Primary Care Nurse Name: Emil Drake LPN Position: [facility] RN Member Role: Primary Care Nurse Name: Jenni Crabtree RN Position: [facility] RN Member Role: Primary Care Nurse Name: Socorro Gilbert RN Position: [facility] SN RN Member Role: Primary Care Nurse Name: Nikos Contreras RN Position: [facility] RN Member Role: Primary Care Nurse Name: Cecile Maciel RN Position: [facility] RN Member Role: Primary Care Nurse Name: Tiffanie Keith RN Position: [facility] RN Member Role: Primary Care Nurse Name: Delbert Coyne RN Position: [facility] RN Member Role: Primary Care Nurse Name: Braden Bonds RN Position: [facility] SN RN Member Role: Primary Care Nurse Name: Maria Luz Deng RN Position: [facility] RN Member Role: Primary Care Nurse Name: Barrera Clayton RN Position: [facility] RN Member Role: Primary Care Nurse Name: Ernestine Farooq RN Position: [facility] RN Member Role: Primary Care Nurse Name: Briana Loja RN Position: [facility] RN Member Role: Primary Care Nurse Name: Emil Deutsch RN Position: [facility] RN Member Role: Primary Care Nurse Name: Socorro Long RN Position: [facility] OB RN Member Role: Primary Care Nurse Name: Carmel Lorenzo RN Position: [facility] RN Member Role: Primary Care Nurse Name: Sincere Lam RN Position: [facility] RN Member Role: Primary Care Nurse Name: Frances Barraza RN Position: [facility] RN Member Role: Primary Care Nurse Name: Lisa Deutsch RN Position: [facility] SN Low Heel Builder Member Role: Primary Care Nurse Name: Codi Garcia RN Position: [facility] RN Member Role: Primary Care Nurse Name: Macrina Rinaldi RN Position: [facility] RN Member Role: Primary Care Nurse Name: Alicia Tee RN Position: [facility] RN Member Role: Primary Care Nurse Name: Kari Grant RN Position: [facility] RN Member Role: Primary Care Nurse Name: Barbra Moore RN Position: [facility] RN Member Role: Primary Care Nurse Name: Gabriela Gonzalez RN Position: [facility] RN Member Role: Primary Care Nurse Name: Era Moser Position: Reference Physician Member Role: PCP Address: [address] [place] [address] [address] [facility] [place] [address]- Telecom: Name: Brigida Sun RN Position: [facility] JUNE RN W/OE and Tasks Member Role: Primary Care Nurse Name: Rubin Alberto RN Position: [facility] RN Member Role: Primary Care Nurse Name: Kaitlin Smith RN Position: [facility] JUNE RN W/OE and Tasks Member Role: Primary Care Nurse Name: Cyndi Bowden RN Position: [facility] RN Member Role: Primary Care Nurse Name: Louis Muller RN Position: [facility] RN Member Role: Primary Care Nurse Name: Monica Irvin RN Position: [facility] RN Member Role: Primary Care Nurse Name: Sara Tovar RN Position: [facility] RN Member Role: Primary Care Nurse Name: Sunil Crowley RN Position: [facility] RN Member Role: Primary Care Nurse Name: Cheryl Duff RN Position: [facility] RN Member Role: Primary Care Nurse Name: Renu Azar RN Position: [facility] Onco RN Member Role: Primary Care Nurse Name: Katherin Burdick RN Position: [facility] RN Member Role: Primary Care Nurse Name: Scott Prather RN Position: [facility] RN Member Role: Primary Care Nurse Name: Angela Conway RN Position: [facility] RN Member Role: Primary Care Nurse Name: Noah Mccann RN Position: [facility] RN Member Role: Primary Care Nurse Name: Jamila Neil RN Position: [facility] RN Member Role: Primary Care Nurse Name: Juliana Rehman RN Position: [facility] RN Member Role: Primary Care Nurse Name: Ivonne Claudio RN Position: [facility] RN Member Role: Primary Care Nurse Name: Aide Lockett RN Position: [facility] RN Member Role: Primary Care Nurse Name: Balbina Lafleur RN Position: [facility] RN Member Role: Primary Care Nurse Name: Alexa Gomez RN Position: [facility] RN Member Role: Primary Care Nurse Name: Carine Carter Position: [facility] RN Member Role: Primary Care Nurse Name: Genesis Stewart NP Position: [facility] PCO Associate Professional Member Role: Primary Care Nurse Address: [address] [place] [address] [address] Telecom: Name: Amari Flood RN Position: [facility] RN Member Role: Primary Care Nurse Name: Napoleon Schaefer RN Position: [facility] RN Member Role: Primary Care Nurse Name: Maribel Dc RN Position: [facility] RN Supv Member Role: Primary Care Nurse Name: Cesar Valdes RN Position: [facility] RN Member Role: Primary Care Nurse Name: Sara Guevara RN Position: [facility] RN Member Role: Primary Care Nurse Name: Natalie Owens RN Position: [facility] RN Member Role: Primary Care Nurse Name: Jonn Villatoro RN Position: [facility] RN Member Role: Primary Care Nurse Name: Lisa Gong RN Position: [facility] RN Member Role: Primary Care Nurse Name: Yuly Fink RN Position: [facility] RN Member Role: Primary Care Nurse Name: Georgie Shirley RN Position: [facility] RN Member Role: Primary Care Nurse Name: Kaitlin Mehta NP Position: [facility] Outreach Member Role: Lifetime Consulting Physician Address: [address] [place] [id number]- Telecom: Name: Saniya Raines RN Position: [facility] RN Member Role: Primary Care Nurse Name: Jenifer Conway RN Position: [facility] RN Member Role: Primary Care Nurse Name: Mirian Salinas RN Position: [facility] RN Member Role: Primary Care Nurse Name: Tori Sanchez RN Position: [facility] RN Member Role: Primary Care Nurse Name: Jenn Gallegos LPN Position: [facility] RN Member Role: Primary Care Nurse Name: Leena Gallegos RN Position: [facility] RN Member Role: Primary Care Nurse Name: Sulaiman Gonzalez RN Position: [facility] RN Member Role: Primary Care Nurse Name: Judith Wang RN Position: [facility] RN Member Role: Primary Care Nurse Name: So Klein RN Position: [facility] ED RN W/OE and Tasks Member Role: Primary Care Nurse Name: Marian Teran LPN Position: [facility] RN Member Role: Primary Care Nurse Name: Reid Beckman RN Position: [facility] RN Member Role: Primary Care Nurse Name: Carmenza Alonzo RN Position: [facility] RN Member Role: Primary Care Nurse Name: Syl Taylor NP Position: [facility] Associate Professional Member Role: Primary Care Nurse Address: [address] [place] [address] [address] [facility] [place] [address]- [place] Telecom: Name: Johana Quintana RN Position: [facility] RN Member Role: Primary Care Nurse Name: Vannessa Buckley RN Position: [facility] RN Member Role: Primary Care Nurse Name: Scott Sanchez RN Position: [facility] RN Member Role: Primary Care Nurse Name: Nafisa Gibson RN Position: [facility] RN Member Role: Primary Care Nurse Name: Keith Nix RN Position: [facility] RN Member Role: Primary Care Nurse Name: Karla Ferrell RN Position: [facility] RN Member Role: Primary Care Nurse Name: Carmen Alvarado RN Position: [facility] AMB Nurse Member Role: Primary Care Nurse Name: Elisabeth Alvarado RN Position: [facility] RN Member Role: Primary Care Nurse Name: Ivonne Moreno RN Position: [facility] RN Member Role: Primary Care Nurse Name: Elana Barrera RN Position: [facility] RN Member Role: Primary Care Nurse Name: Audrey Phillips RN Position: [facility] RN Member Role: Primary Care Nurse Name: Shikha Wong RN Position: [facility] RN Member Role: Primary Care Nurse Name: Leena Bourgeois RN Position: [facility] RN Member Role: Primary Care Nurse Name: Radha Castillo RN Position: [facility] RN Member Role: Primary Care Nurse Name: Malina Lin RN Position: [facility] RN Member Role: Primary Care Nurse Name: Nadya Perales RN Position: [facility] RN Member Role: Primary Care Nurse Name: Angela To RN Position: [facility] RN Member Role: Primary Care Nurse Name: Frances Tamayo RN Position: [facility] RN Member Role: Primary Care Nurse Name: Angela Rios LPN Position: [facility] RN Member Role: Primary Care Nurse Name: Angela Leonard LPN Position: [facility] RN Member Role: Primary Care Nurse Name: Kaye Murrieta RN Position: [facility] RN Member Role: Primary Care Nurse Name: Katelyn Hollins RN Position: [facility] RN Member Role: Primary Care Nurse Name: Genna Haji RN Position: [facility] RN Member Role: Primary Care Nurse Name: Alicia Cardozo RN Position: [facility] RN Member Role: Primary Care Nurse Name: Bertram Beverly RN Position: [facility] RN Member Role: Primary Care Nurse Name: Omega Amaya RN Position: S RN Member Role: Primary Care Nurse Name: Sharon Varner RN, I Position: S RN Member Role: Primary Care Nurse Name: Randi Vora RN Position: S RN Member Role: Primary Care Nurse Care Team Related Persons Name: IVONNE FELIZ Name: SHIKHA FELIZ Name: MICHAEL SPRING Name: AMARI SPRING Name: MICHELLE LUA Name: [place] Insurance Providers Guarantor name: [facility] Plan Information #: 1 Payer: [employer] Payer Identifier: NA Member Number: [id number] Group Number: [id number] Subscriber Identifier: [id number] Relationship to Subscriber: self Coverage Type: Medicare Managed Care (Includes Medicare Advantage Plans) Coverage Verification Date: Telecom: NA Address:
[2025-08-13 09:02] VITALS: BP 128/78; PULSE 80; TEMP 36.3; O2SAT 95; BMI 23.7
--- NOTE | 2025-08-13 09:02 | A.OFFPC_ITS ---
Vital Signs 3 08/13/25 09:02 Height 5 ft Weight 121 lb 4 oz BMI 23.7 BP 128/78 Blood Pressure Location Lt brachial Position Sitting Pulse 80 Pulse Source Pulse Oximeter Temp 97.3 F Temp Source Temporal Artery Scan Pulse Oximetry (%) 95 Oxygen Delivery Method Room Air Intake Visit Reasons: [facility] 08/10 Dairy Frozen Manager Required: No Accompanied by: Self / Same As Patient Allergies erythromycin base (ERYTHROMYCIN BASE) Allergy (Severe, Verified 08/13/25 09:14) Anaphylaxis levofloxacin (From Levaquin) Allergy (Severe, Verified 08/13/25 09:14) Anaphylaxis Penicillins (PCN) Allergy (Severe, Verified 08/13/25 09:14) Anaphylaxis seafood Allergy (Severe, Verified 08/13/25 09:14) Anaphylaxis Sulfa (Sulfonamide Antibiotics) (SULFA (SULFONAMIDE ANTIBIOTICS)) Allergy (Severe, Verified 08/13/25 09:14) Anaphylaxis, vomiting Tetracyclines Allergy (Severe, Verified 08/13/25 09:14) Anaphylaxis gabapentin Allergy (Intermediate, Verified 08/13/25 09:14) Hives pregabalin (From Lyrica) Allergy (Intermediate, Verified 08/13/25 09:14) Hives vancomycin Allergy (Intermediate, Verified 08/13/25 09:14) rash, redness, itchiness, anxiety divalproex sodium (Depakote) Allergy (Unknown, Verified 08/13/25 09:14) altered mental status gluten (GLUTEN) Allergy (Unknown, Verified 08/13/25 09:14) BLOATING,RASH rice Allergy (Verified 08/13/25 09:14) Unknown Medication List - Last Reconciled 08/13/25 by Era Erazo PA-C Advair HFA 115-21 mcg/actuation (fluticasone propion-salmeterol) 2 puffs inhalation Q12H NS albuterol sulfate 90 mcg/actuation 2 puffs inhalation Q6H PRN amitriptyline 25 mg PO BEDTIME 30 days apixaban (Eliquis) 5 mg PO BID 90 days baclofen 5 mg PO BEDTIME cane As directed cholestyramine (with sugar) 4 gram 4 grams PO BID 30 days colostomy bags As directed [colostomy supplies As directed] cyanocobalamin (vitamin B-12) 3,000 mcg PO DAILY 90 days diphenhydramine HCl (Benadryl) 25 mg PO Q8H 5 days duloxetine 60 mg PO DAILY 90 days famotidine (Pepcid) 20 mg PO BID 5 days ferrous sulfate 325 mg PO DAILY fludrocortisone 0.1 mg PO DAILY food supplemt, lactose-reduced (Boost) 1 ea PO QID levetiracetam 750 mg PO BID 30 days levothyroxine 50 mcg PO DAILY loperamide (Imodium A-D) 2 mg PO Q6H PRN loratadine 10 mg PO DAILY magnesium oxide 1 tab PO BID midodrine 10 mg PO QID txgixwqy-jqg-LR-lycopen-lutein 0.4 mg-300 mcg- 250 mcg (CertaVite Senior) 1 tab PO DAILY omeprazole 40 mg PO DAILY oxycodone 15 mg (15 mL) PO Q8H PRN 3 days pantoprazole 40 mg PO DAILY potassium chloride 20 mEq (15 mL) PO BID prednisone 40 mg (2 x 20 mg) PO DAILY simvastatin 40 mg PO BEDTIME Symbicort 80-4.5 mcg/actuation (budesonide-formoterol) 2 puffs inhalation BID NS thiamine HCl (vitamin B1) (Vitamin B-1) 100 mg PO DAILY trazodone 50 mg PO BEDTIME Tobacco use date assessed: 07/17/25 Fall risk assessment: 2 + Falls in past year Last assessed Fall Risk: 03/26/25 Dental Screening Dental Screen Date: 07/17/25 Did you have a dental visit in the last 12 months?: No Did you have a dental problem in the last 6 months where you did not have access to dental care?: No Was dental information given to patient?: No HPI [facility] 08/10 2 HPI0 Details 69-year-old female with past medical his tory of hypothyroid, pseudoseizures, epilepsy, hypercholesterolemia, history of colon cancer, neurogenic bladder, COPD, IBS, pulmonary embolism last seen 06/2025 coming in for hospital follow up. Presenting for follow-up on multiple chronic issues, a new diagnosis of breast cancer, and pain management. The patient was recently diagnosed with breast cancer following a biopsy. The patient reports being informed that it is a rare carcinoma that is hormone-receptive to testosterone and estrogen and has grown significantly. The patient recently spent two weeks in the hospital where CT scans and MRIs showed the mass had moved and enlarged, which prompted the biopsy. The patient reports feeling tired of being in pain and fighting health battles, and has not slept since receiving the cancer diagnosis. The patient has a history of esophageal issues, including nausea and vomiting, with a recent esophagogram showing the esophagus has narrowed again. Further dilations are not planned at this time, and an outpatient manometry is scheduled for September. The patient reports an inability to eat due to severe pain and was recently hospitalized after vomiting blood. The patient reports other GI issues, including something found underneath an ostomy causing significant pain, and an obstruction of the bile duct of unknown etiology. [facility] Medical History Paroxysmal A-fib Orthostatic hypotension History of small bowel obstruction Hospital discharge follow-up History of colon cancer History of gastric cancer History of pulmonary embolus (PE) Acute suprapubic pain Neurogenic bladder, NOS COVID-19 Primary cancer of foot Pulmonary embolism Degenerative cervical disc Lumbar disc disease Celiac disease Pure hypercholesterolemia Epilepsy Hypothyroidism COPD (chronic obstructive pulmonary disease) Pseudoseizure Conversion disorder Colon cancer Allergy to multiple drugs Deep vein thrombosis Surgical History History of urostomy History of endoscopy History of esophagogastroduodenoscopy (EGD) History of arthroplasty History of hysterectomy (~1979) Hx of cholecystectomy S/P IVC filter History of partial surgical removal of colon History of partial gastrectomy History of colectomy History of colostomy reversal History of bladder surgery History of sinus surgery History of facial surgery History of colonoscopy (~06/12/24) Family History Mother CAD (coronary artery disease) Other Mental health disorder Social History Household Members: None Household Members Other:: 1 Housing: Apartment Do you presently have visiting nurse or other home services: Yes Alcohol intake: former Patient Tobacco Use Status: Never used Tobacco Tobacco use type: Cigarette e-Cigarette/Vaping Use: Never Used Second Hand Smoke Exposure: No Advance Directives Date on File: 08/08/23 service: No Current occupational status: disabled Cognitive needs: Yes (cane) Hearing needs: No Vision needs: Yes (Glasses) Questionnaire PHQ-9 Over the last 2 weeks, how often have you been bothered by any of the following problems? 1. Little interest or pleasure in doing things: not at all 2. Feeling down, depressed, or hopeless: not at all 3. Trouble falling or staying asleep, or sleeping too much: several days 4. Feeling tired or having little energy: several days 5. Poor appetite or overeating: several days 6. Feeling bad about yourself - or that you are a failure or have let yourself or your family down: not at all 7. Trouble concentrating on things, such as reading the newspaper or watching television: not at all 8. Moving or speaking so slowly that other people could have noticed. Or the opposite - being so fidgety or restless that you have been moving around a lot more than usual: not at all 9. Thoughts that you would be better off or of hurting yourself in some way: not at all Total score: 3 Depression Screening Interpretation: Negative Depression Screening Done: Yes Source: Developed by Drs. Ranjit Valdovinos, Anila Baldwin, Saud Allison and colleagues, with an educational lionel from [employer]. Thrive Questionnaire Date Thrive assessed: 01/16/25 I am a: Patient What is your living situation today?: I have a steady place to live Within the past 12 months, did the food you bought not last and you didn't have the money to get more?: Never true Within the past 12 months, did you worry whether your food would run out before you got money to buy more?: Never true Do you have trouble paying for medicines?: No Do you have trouble getting transportation to medical appointments?: Yes Do you have trouble paying your heating and electricity bill?: No Do you have trouble taking care of your child, family member or friend?: No Do you have trouble with day-to-day activities such as bathing, preparing meals, shopping, managing finances, etc.?: No Are you currently unemployed and looking for a job?: No Are you interested in more education?: No Please select the resources that you would like help with: None Currently or been in a relationship where the following occur: No concerns reported THRIVE Score: 1 AUDIT C Alcohol Use Questionnaire (AUDIT-C) 1. How often do you have a drink containing alcohol?: Never 3. How often do you have six or more drinks on one occasion?: Never Total Score: 0 Score Reviewed/Action Taken: No EARNESTINE-7 AMB Questionnaire EARNESTINE-7 Date EARNESTINE - 7 assessed: 07/17/25 Feeling nervous, anxious, or on edge: 0 = Not at all Not being able to stop or control worryin = Not at all Worrying too much about different things: 0 = Not at all Trouble relaxin = Not at all Being so restless that it is hard to sit still: 1 = Several days Becoming easily annoyed or irritable: 1 = Several days Feeling afraid as if something awful might happen: 0 = Not at all Total EARNESTINE-7 score (0-4 normal; 5-9 mild; 10-14 moderate; 15-21 severe): 2 Source: Developed by Drs. Ranjit Valdovinos, Anila Baldwin, Saud Allison and colleagues, with an educational lionel from [employer]. Review of Systems Const Denies body aches, Denies chills, Denies fever(s), Denies headache(s) and Denies poor appetite Eyes Reports no additional complaints ENT Reports dysphagia, Denies dizziness, Denies headache(s) and Reports odynophagia Card Denies chest pain, Denies lightheadedness and Denies dyspnea Resp Denies dyspnea GI Reports as per HPI, Reports dysphagia, Denies nausea, Reports odynophagia and Denies vomiting Reports no additional complaints Musc Reports as per HPI and Denies abnormal gait Skin/Breast Reports system reviewed and no additional complaints, except as documented Neuro Denies abnormal gait, Denies dizziness and Denies headache(s) Psych Reports no additional complaints Physical exam (Primary Care) Vital Signs: Last Vital Signs Temp 97.3 F 08/13/25 09:02 Pulse 80 08/13/25 09:02 BP 128/78 08/13/25 09:02 Pulse Ox 95 08/13/25 09:02 Oxygen Delivery Method Room Air 08/13/25 09:02 BMI result Body Mass Index 23.7 Tobacco/Smoking Status: Tobacco use Status Tobacco use date assessed 07/17/25 08/13/25 09:09 Patient Tobacco Use Status Never used Tobacco 08/13/25 09:09 Tobacco use type Cigarette 08/13/25 09:09 e-Cigarette/Vaping Use Never Used 08/13/25 09:09 PHQ-9: PHQ-9 Score PHQ-9: Total score 3 08/13/25 12:24 Depression Screening Interpretation: Negative Thrive Assessment: Date of Thrive Assessment Date Thrive assessed 01/16/25 08/13/25 09:09 Currently or been in a relationship where the following occur: No concerns reported Const General: cooperative, healthy appearing, comfortable and no acute distress Orientation/consciousness: patient oriented x3 HENMT Head: Yes normocephalic Ears: hearing grossly normal bilaterally General nose exam: Normal external nose present Eyes General: appearance normal, both eyes and all related structures Conjunctivae: conjunctivae normal Neck Neck: Yes full ROM and Yes no lymphadenopathy Chest Chest/axillae images: 2 1. bruising and tenderness around bx site without signs of infection 2. bruising and tenderness around bx site without signs of infection Resp Effort & Inspection: normal respiratory effort Auscultation: clear to auscultation bilaterally, no crackles, no rales, no rhonchi and no wheezes Cardio Rate: regular rate Rhythm: regular rhythm Skin General skin exam: no rashes or lesions noted Neuro General: patient oriented x3 Gait exam (Neuro): Normal gait present Extrem General: Yes normal to inspection, Yes full ROM and No edema Psych Affect: normal affect Attitude: cooperative Insight: Good insight present (Psych) Judgement: Good judgement present (Psych) Coding Level of Care Code Est Pt Level 4 (66046) Diagnoses Dysphagia, unspecified type R13.10 Dysphagia type: unspecified Malabsorption K90.9 Depression F32.A Breast cancer C50.919 Assessment & Plan Assessment & Plan (1) Dysphagia: Code(s): R13.10 - Dysphagia, unspecified Category: Medical Qualifiers: Dysphagia type: unspecified Qualified Code(s): R13.10 - Dysphagia, unspecified Plan: The patient has ongoing esophageal stenosis, which has recurred, causing severe pain, inability to eat, nausea, and vomiting. Additional GI concerns include an unidentified obstruction of the bile duct and a painful finding under an ostomy. An outpatient manometry is scheduled for September to further evaluate the esophagus. No further esophageal dilations are planned at this time. The GI specialist will manage these issues, and pain will be managed in the interim. (2) Malabsorption: Code(s): K90.9 - Intestinal malabsorption, unspecified Category: Medical Plan: She will continue to follow with GI and prescription sent for ensure drinks (3) Depression: Code(s): F32.A - Depression, unspecified Category: Medical Plan: The patient reports significant emotional distress, insomnia, and fatigue related to multiple health issues and the new cancer diagnosis. A referral has been placed for counseling services. The option of starting antidepressant medication was discussed, but the patient prefers to start with counseling first. (4) Breast cancer: Code(s): C50.919 - Malignant neoplasm of unspecified site of unspecified female breast Category: Medical Plan: The patient has a new diagnosis of a rare, hormone-receptive breast carcinoma that has grown significantly. The patient is reportedly not a candidate for chemotherapy or radiation. The plan is for the patient to follow up with a breast specialist, Dr. Holguin, on August 27. Pathology reports will be obtained to better understand the diagnosis. The patient is amenable to surgery if recommended. Plan to send pain management Rx until she can be seen by oncology. Plan This note was constructed using voice recognition software. While every effort has been made to ensure accuracy and commercial litigation paralegal, still areas may have been included sometimes these areas may affect the content or meeting of the given symptoms. Total time spent caring for the patient today was 20 minutes. This includes time spent before the visit reviewing the chart, time spent during the visit, and time spent after the visit and documentation. Patient was informed and verbally consented to the use of an ambient scribe for clinic note documentation during this visit. Orders: Referrals 2 Counseling Referral F32.A - Depression, unspecified
--- OUTSIDE RECORDS SUMMARY | 2025-08-13 10:56 | XMS_ITS | Clinical Summary ---
Author Organization [facility] Address [address] [place] [address] Care Team Providers Care Film Coater Name Role Phone Bob Camp MD Primary Care Provider [phone] Surgical History Surgery Date Site/Laterality Comments ABDOMINAL SURGERY PROCEDURE: HISTORICAL ABDOMINAL SURGERY; COMMENT: multiple procedures, has colostomy, short gut, chronic tyson OTHER SURGICAL HISTORY PROCEDURE: HISTORICAL COLOSTOMY HYSTERECTOMY PROCEDURE: HISTORICAL TOTAL HYSTERECTOMY WITH BSO BLADDER SUSPENSION PROCEDURE: HISTORICAL BLADDER SUSPENSION OTHER SURGICAL HISTORY PROCEDURE: REPAIR MAXILLOFACIAL DEFECTS Medical History Medical History Date Comments Diabetes mellitus ([facility] V 24, [facility] V28) 06/05/2012 DX:Diabetes mellitus (HCC) HTN (hypertension) 06/05/2012 DX:HTN (hyper tension) Encounter for long-term (cur rent) use of other medications 06/05/2012 DX:Encounter for long-term ( current) use of other medications Diabetes mellitus (CMS/HCC V 24, [facility]/HCC V28) 06/05/2012 DX:Diabetes mellitus (HCC) HTN (hypertension) 06/05/2012 DX:HTN (hyper tension) Pulmonary embolism (CMS/HCC V24, [facility]/HCC V28) 06/05/2012 DX:Pulmonary embolism (HCC) PTSD (post-traumatic stress disorder) 06/05/2012 DX:PTSD (post-traumatic stress disorder) A-fib (CMS/HCC V24, [facility] V28) 06/05/2012 DX:A-fib ([facility]) Chronic back pain 06/05/2012 DX:Chronic thao k pain Conversion disorder 06/05/2012 DX:Conversio n disorder Gastroparesis due to DM ([facility] /HCC V24, [facility] V28) 06/05/2012 DX:Gastroparesis due to DM ( [facility]) GERD (gastroesophageal reflux disease) 06/05/2012 DX:GERD (gastroesophageal reflux disease) Depressed 06/05/2012 DX:Depressed Myofascial pain syndrome 06/05/2012 DX:Myof ascial pain syndrome SGS (short gut syndrome) 06/05/2012 DX:SGS (short gut syndrome) SVT (supraventricular tachyc ardia) ([facility] V24) 06/05/2012 DX:SVT (supraventricular tachycardia) ([facility]) Weight loss 06/05/2012 DX:Weight loss Anxiety 06/05/2012 DX:Anxiety Irritable bowel 06/05/2012 DX:Irritable bow el Anemia 06/19/2012 DX:Anemia Migraine 07/25/2012 DX:Migraine History of DVT (deep vein thrombosis) DX:History of DVT (deep vein thrombosis) History of pulmonary embolism DX :History of pulmonary embolism Blind left eye DX:Blind left ey e Seizures (CMS/[facility] V24, CMS/[facility] V28) DX:Seizures ([facility]) Family History Medical History Relation Name Comments [...] Last Done Comments Breast Cancer Screening 1955 Colorectal Cancer Screening: Colonoscopy 1955 Diabetes: Annual GFR (Glomer ular Filtration Rate) 1956 Diabetes: Annual Foot Exam 1966 Diabetes: Annual Retina Eye Exam 1966 DTaP,Tdap,and Td Vaccines (1 - Tdap) 1975 Pneumococcal Vaccine: 50+ Ye ars (1 of 1 - PCV) 2006 RSV Immunization Adult Patie nts (1 - Risk 50-74 years 1-dose series) 2006 Zoster Vaccines (1 of 2) 2006 Cholesterol Screening (Lipid Panel) 08/23/2022 Falls Risk Assessment 08/23/2022 Hepatitis C Screening 08/23/2022 Osteoporosis Screening (Bone Density Screening) 08/23/2022 Social Influencers of Health Screening 08/23/2022 Diabetes: Annual Urine Albumin-Creatinine Ratio (uACR) 09/09/2022 Diabetes: Blood Sugar Contro l Test (HGBA1C) 09/09/2022 Hypertension/CHF/CAD Annual BMP Blood Test 09/09/2022 Depression Screening 09/24/2024 COVID-19 Vaccine ( - 2024-2 6 season) 2025 Influenza Vaccine (#1) 2025 HIB Vaccines Aged Out No longer [...] Documents on File Type Date Recorded Patient Timber Watchman Expl anation Health Care Decision (hx) 12/14/2019 [...] (hx) 09/21/2014 AD YOUSSEF DIRECTIVE Care Teams Film Coater Relationship Specialty Start Date End Date Bob Camp MD [facility] [address] [place] [address] [address] [facility] [place] [address] PCP - General Internal Medicine 03/03/22
--- OUTSIDE RECORDS SUMMARY | 2025-08-13 10:56 | XMS_ITS | Encounter Summary ---
Author Organization [facility] Address [address] [place] [address] Phone Care Team Providers Care Aircraft Instrument Repairer Name Role Phone Bob Camp MD Primary Care Provid er Encounter Details Date Type Department Care Team (Late st Contact Info) Description 06/12/2024 Procedure Pass [facility] Endoscopy Department [address] [place] [id number] Social History Tobacco Use Types Packs/Day Years [...] documented as of this encounter Care Teams Aircraft Instrument Repairer Relationship Specialty Start Date End Date Bob Camp MD [address] [place] [phone] PCP - General Internal Medicine 10/05/23 documented as of this encounter Additional Source Comments The information contained in this document represents components of the legal health record. It is not the complete legal health record.[facility]
--- OUTSIDE RECORDS SUMMARY | 2025-08-13 10:57 | XMS_ITS | Encounter Summary ---
Author Organization [facility] Address [address] [place] [phone] Phone Care Team Providers Care Tax Manager Name Role Phone Bob Camp MD Primary Care Provid er Encounter Details Date Type Department Care Team (Late st Contact Info) Description 05/02/2024 Procedure Pass [facility], Ct Scan - [address] [address] Social History Tobacco Use Types Packs/Day Years [...] 11:00 PM EDT Jasen Sandoval RN * [place] Suicide Severity Rating Scale (Screener/Recent Self-Report) Question [...] documented as of this encounter Care Teams Tax Manager Relationship Specialty Start Date End Date Bob Camp MD [address] [place] [phone] PCP - General Internal Medicine 10/05/23 documented as of this encounter Additional Source Comments The information contained in this document represents components of the legal health record. It is not the complete legal health record.[facility]
--- OUTSIDE RECORDS SUMMARY | 2025-08-13 10:57 | XMS_ITS | Encounter Summary ---
Author Organization [facility] Address [address] [place] [address] Phone Care Team Providers Care Top Bottom Attaching Machine Operator Name Role Phone Bob Camp MD Primary Care Provid er Encounter Details Date Type Department Care Team (Late st Contact Info) Description 06/09/2024 Procedure Pass [facility] Endoscopy Department [address] [place] [address] Social History Tobacco Use Types Packs/Day Years [...] documented as of this encounter Care Teams Top Bottom Attaching Machine Operator Relationship Specialty Start Date End Date Bob Camp MD [address] [place] [address] [phone] PCP - General Internal Medicine 10/05/23 documented as of this encounter Additional Source Comments The information contained in this document represents components of the legal health record. It is not the complete legal health record.[facility]
--- OUTSIDE RECORDS SUMMARY | 2025-08-13 10:57 | XMS_ITS | Encounter Summary ---
Author Organization [facility] Address [address] [place] [address] Phone Care Team Providers Care Health Sciences Department Chair Name Role Phone Bob Camp MD Primary Care Provid er Encounter Details Date Type Department Care Team (Late st Contact Info) Description 04/15/2024 Procedure Pass [facility]'s Radiology [address] [place] [address] Social History Tobacco Use Types Packs/Day Years [...] documented as of this encounter Care Teams Health Sciences Department Chair Relationship Specialty Start Date End Date Bob Camp MD [address] [place] [phone] PCP - General Internal Medicine 10/05/23 documented as of this encounter Additional Source Comments The information contained in this document represents components of the legal health record. It is not the complete legal health record.[facility]
--- OUTSIDE RECORDS SUMMARY | 2025-08-13 10:57 | XMS_ITS | Encounter Summary ---
Author Organization [facility] Address [address] [place] [address] Phone Care Team Providers Care Clinical Staff Pharmacist Name Role Phone Bob Camp MD Primary Care Provid er Encounter Details Date Type Department Care Team (Late st Contact Info) Description 04/09/2024 Procedure Pass [facility] Periop [address] [place] [address] Social History Tobacco Use Types Packs/Day Years [...] documented as of this encounter Care Teams Clinical Staff Pharmacist Relationship Specialty Start Date End Date Bob Camp MD [address] [place] [phone] PCP - General Internal Medicine 10/05/23 documented as of this encounter Additional Source Comments The information contained in this document represents components of the legal health record. It is not the complete legal health record.[facility]
--- OUTSIDE RECORDS SUMMARY | 2025-08-13 10:57 | XMS_ITS | Clinical Summary ---
Author Organization [facility] Address [address] [place] [phone] Phone Care Team Providers Care Fur Glosser Name Role Phone Bob Camp MD Primary [...] Active ferrous sulfate 324 mg (65 mg redding iron) TbEC Take 1 tablet (324 mg [...] VACCINES (50+ years) (2 of 2 - PPSV23, PCV20, or PCV21) 07/02/2020 05/07/2020 OSTEOPOROSIS SCREENING INITIAL (ONE-TIME) 2021 INFLUENZA VACCINE (#1) 2025 , 05/23/2019, 06/08/2018 COVID-19 VACCINE ( - season) 2025 BLOOD PRESSURE 06/06/2025 12/04/2024 [...] patient's age to complete this topic IPV VACCINES Aged Out No longer eligi ble based on patient's age to complete this topic MENINGOCOCCAL VACCINES (ACWY) Aged Out No longer eligible based on patient's age to complete this topic MENINGOCOCCAL VACCINES (B) Aged Out N o longer eligible based on patient's age to complete this topic Medical Devices Implanted Type Area Cloud Systems Architect Device Identifier Shelf Expiration Date Model / Serial / Lot Pin Pin Cheek Stent Diversion 7fr 90cm X2 Ureteral Single J Guidewire Ptfe .028 120cm Silicone - [id number] Implanted:Qty: 1 on 04/09/2024 by Bg Castillo MD at [facility] Ureteral Stent N/A: Ureter OLYMPUS JOHN 02/19/2029 [id number] / / [id number] Ivc Filter-12/25/2021 Implanted: 2 by Jim Temple MD (Quantity not on file) [employer] Description:List Rec#[id number] Object Description OptionELITE Retrievable Vena Cava Filter ATEME, www[employer] Strength3 Object StatusConditional 6 Safety Topic / SubjectCoils, Filters, Stents, and Grafts Mesh Surgical [id number] Phasix St Pocketed Bioresorbable Open Positioning System Oval - [id number] Implanted:Qty: 1 on 04/09/2024 by Pedro Pablo Campa MD at [facility] N/A: Abdomen [employer] [id number] 09/20/2025 [id number] / / [id number] Procedures Procedure Name Priority Date/Time Associated Diagnosis Comments BASIC METABOLIC PANEL (BMP) Routine 06/13/2024 5:30 AM EDT ENDOSCOPY, COLON 06/12/2024 12:2 9 PM EDT from Last 3 Months or Most Recently Relevant to Health Maintenance Results * (ABNORMAL) Basic metabolic panel (06/13/2024 5:30 AM EDT) SODIUM 141 136 - 145 mmol/L [facility] POTASSIUM 3.8 3.4 - 5.1 mmol/L [facility] CHLORIDE 104 98 - 107 mmol/L [facility] CO2 28 22 - 31 mmol/L [facility] BUN 8 6 - 23 mg/dL [facility] CREATININE 0.51 0.50 - 1.20 mg/dL [facility] GLUCOSE 96 70 - 100 mg/dL [facility] CALCIUM 8.4(L) 8.8 - 10.7 mg/dL [facility] EGFR 102 >59 mL/min/1.7 3m2 [facility] Comment:Estimated glomerular filtration rate calculated using the CKD-EPI refit equation. ANION GAP 9 7 - 17 mmol/L [facility] Blood 06/13/2024 5:30 AM EDT 06/13/2024 6:09 AM EDT us Jaden Ponce PA-C LAB BLOOD BKR ORDERABLES Final Result Performing Organization Address City/State/[facility] Co de Phone Number [facility] [address] [place] [phone] * ENDOSCOPY, COLON (06/12/2024 12:29 PM EDT) 06/12/2024 12:2 9 PM EDT Narrative Transcriptions Epifanio Seaman MD, MPH - 06/12/2024 12:29 PM EDT [facility] Gastroenterology Patient Name: Christi Donald Procedure Date: 06/12/2024 12:29 PM Date of : 1955 Admit Type: Inpatient Age: 68 Room: 2 Gender: Female Note Status: Finalized Attending MD: EPIFANIO SEAMAN MD [id number] Procedure: Colonoscopy Indications: Screening for colorectal malignant neoplasm (last colonoscopy was more than 10 years ago) Providers: EPIFANIO SEAMAN MD [id number], Enrique Dong Referring MD: Santana Sierra MD [...] prior to the procedure. - See the [facility] pre-procedure note for documentation of the pre-procedure [...] heparin in 6 hours Epifanio Seaman MD [id number] EPIFANIO SEAMAN MD [id number] 06/12/2024 1:06:08 PM This report has been [...] Advance Directives For more information, please contact: [phone] (9AM - 5PM [facility], Sunday-Sunday) * Full Code (Latest Code Status on File) Date Activated Date Inactivated Comments 06/06/2024 12:35 AM Question Answer Comments Code Status Confirmed With: Patient Healthcare Agents on File Name Relationship [facility] Amari Kristian Spouse Alternate Health care Agent (Proxy form on file) Care Teams Fur Glosser Relationship Specialty Start Date End Date Bob Camp MD [address] [place] [address] [phone] PCP - General Internal Medicine 10/05/23 Additional Source Comments The information contained in this document represents components of the legal health record. It is not the complete legal health record.[facility]
--- OUTSIDE RECORDS SUMMARY | 2025-08-13 10:57 | XMS_ITS | Encounter Summary ---
Author Organization [facility] Address [address] [place] [address] Phone Care Team Providers Care Medical Record Consultant Name Role Phone Bob Camp MD Primary Care Provid er Encounter Details Date Type Department Care Team (Late st Contact Info) Description 06/12/2024 Procedure Pass [facility]'s Radiology [address] [place] [address] Social History Tobacco Use Types Packs/Day Years [...] documented as of this encounter Care Teams Medical Record Consultant Relationship Specialty Start Date End Date Bob Camp MD NPI: [id number] [place] [id number] PCP - General Internal Medicine 10/05/23 documented as of this encounter Additional Source Comments The information contained in this document represents components of the legal health record. It is not the complete legal health record.[facility]
--- OUTSIDE RECORDS SUMMARY | 2025-08-13 10:57 | XMS_ITS | Encounter Summary ---
Author Organization [facility] Address [address] [place] [address] Phone Care Team Providers Care Sequins Spooler Name Role Phone Bob Camp MD Primary Care Provid er Encounter Details Date Type Department Care Team (Late st Contact Info) Description 04/09/2024 Procedure Pass [facility] Periop [address] [place] [address] Social History Tobacco Use Types Packs/Day Years [...] documented as of this encounter Care Teams Sequins Spooler Relationship Specialty Start Date End Date Bob Camp MD [address] [place] [phone] PCP - General Internal Medicine 10/05/23 documented as of this encounter Additional Source Comments The information contained in this document represents components of the legal health record. It is not the complete legal health record.[facility]
--- OUTSIDE RECORDS SUMMARY | 2025-08-13 10:57 | XMS_ITS | Encounter Summary ---
Author Organization [facility] Address [address] [place] [phone] Phone Care Team Providers Care Pig Sticker Name Role Phone Bob Camp MD Primary Care Provid er Encounter Details Date Type Department Care Team (Late st Contact Info) Description 06/06/2024 Procedure Pass [facility] Radiology [address] [place] [address] Social History Tobacco Use Types Packs/Day Years [...] 12:52 AM EDT Elisabeth Aguilar RN * [place] Suicide Severity Rating Scale (Screener/Recent Self-Report) Question [...] documented as of this encounter Care Teams Pig Sticker Relationship Specialty Start Date End Date Bob Camp MD [address] [place] [id number] PCP - General Internal Medicine 10/05/23 documented as of this encounter Additional Source Comments The information contained in this document represents components of the legal health record. It is not the complete legal health record.[facility]
== END 2025-08-13 09:46 | disposition home or self-care (01) ==
LOC: HO.HMCH 09:00
DX: R13.10 Dysphagia, unspecified (principal); K90.9 Intestinal malabsorption, unspecified; F32.A Depression, unspecified; C50.919 Malignant neoplasm of unspecified site of unspecified female breast

== ENCOUNTER → 2025-08-13 08:59 | Outpatient (BNVA) | payer OTHER, SELFPAY | DX: R13.10 Dysphagia, unspecified (principal); K90.9 Intestinal malabsorption, unspecified; F32.A Depression, unspecified; C50.919 Malignant neoplasm of unspecified site of unspecified female breast | CPT/HCPCS: 96127; 99212 ==